=== PATIENT | female | born 1950 | race African-American/Black ===

== ENCOUNTER 2017-12-19 11:55 | Emergency (ER) | payer MEDICARE, OTHER ==
--- OUTSIDE RECORDS SUMMARY | 2017-12-19 11:58 | XMS REPORT | Continuity of Care Document ---
:1950 Author Organization [facility] Team Providers Name Role Phone Kristina Srivastava MD Unavailable Unavailable Encounters Encounter Performer Location Date Lab Report Kristina Srivastava MD [facility] Oct 29, 2011 Problems Problem Effective Dates Problem Status ARTHRITIS, RHEUMATOID Inactive HYPERTENSION Inactive HYPERLIPIDEMIA Inactive DIABETES MELLITUS, TYPE I, ADULT ONSET Inactive PAIN IN JOINT, MULTIPLE SITES Inactive VITAMIN D DEFICIENCY Inactive SARCOIDOSIS Inactive UNSPECIFIED INFLAMMATORY POLYARTHROPATHY Inactive TENDINITIS, SHOULDER, RIGHT Inactive BACK PAIN, LUMBAR Inactive HYPERCHOLESTEROLEMIA Feb 14, 2011 Active SARCOIDOSIS Feb 14, 2011 Active BIPOLAR DISORDER UNSPECIFIED Feb 14, 2011 Active TRIGGER FINGER, LEFT MIDDLE Inactive CARPAL TUNNEL SYNDROME, BILATERAL Inactive RIGHT CARPAL TUNNEL SYNDROME Feb 14, 2011 Active RIGHT CUBITAL TUNNEL SYNDROME Apr 18, 2011 Active SHOULDER PAIN, RIGHT Inactive PAIN IN JOINT, MULTIPLE SITES Inactive CARPAL TUNNEL SYNDROME, LEFT Inactive TRIGGER FINGER, INDEX FINGER Inactive Procedures Date Description Comments Jun 07, 2009 genitourinary review of systems, E&M frequent urination Nov 28, 2009 genitourinary review of systems, E&M frequent urination Apr 05, 2010 genitourinary review of systems, E&M frequent urination Jul 11, 2010 genitourinary review of systems, E&M frequent urination Jan 16, 2011 genitourinary review of systems, E&M frequent urination Feb 14, 2011 genitourinary review of systems, E&M denies loss of urine, frequent urination, painful urination, blood in urine or kidney stones Apr 08, 2011 genitourinary review of systems, E&M denies loss of urine, frequent urination, painful urination, blood in urine or kidney stones Jun 20, 2011 genitourinary review of systems, E&M denies loss of urine, frequent urination, painful urination, blood in urine or kidney stones August 29, 2011 genitourinary review of systems, E&M denies loss of urine, frequent urination, painful urination, blood in urine or kidney stones Oct 30, 2011 genitourinary review of systems, E&M denies loss of urine, frequent urination, painful urination, blood in urine or kidney stones Medications Medication Instructions Start Date Status SIMVASTATIN 40 MG TABS 1 po qd Inactive AMLODIPINE BESYLATE 10 MG TABS 1 po qd Inactive TRAMADOL HCL 50 MG TABS 1 po qd [place]AM[place] D 16943 UNIT CAPS 1 tab once a week for two Jun 12, 2009 Inactive weeks GLIPIZIDE TABS per other M.D. Feb 14, 2011 Active HYDROXYCHLOROQUINE SULFATE 200 MG 1 tab qd Jul 11, 2010 Inactive TABS METFORMIN HCL 500 MG TABS 1 po qd Inactive MELOXICAM 15 MG TABS 1 tab qd w/ food PRN Jul 11, 2010 Inactive BISPRO per other M.D. Feb 14, 2011 Active ZOLOFT TABS per other M.D. Feb 14, 2011 Active VITAMIN D CAPS per other M.D. Jun 20, 2011 Active DEPAKOTE TBEC per other M.D. Jun 20, 2011 Active HYDROXYCHLOROQUINE SULFATE 200 MG 1 tab qd Jun 20, 2011 Active TABS Vital Signs Date Description Test Result Jun 07, 2009 height E&M - 8302-2 HEIGHT 68 in Jun 07, 2009 weight E&M - 3141-9 WEIGHT 230 lb Jun 07, 2009 blood pressure, systolic - 8480-6 BP SYSTOLIC 136 mm Hg Jun 07, 2009 blood pressure, diastolic - 8462-4 BP DIASTOLIC 76 mm Hg Jun 07, 2009 pulse rate E&M - 8867-4 PULSE RATE 76 /min Nov 28, 2009 weight E&M - 3141-9 WEIGHT 232 lb Nov 28, 2009 blood pressure, systolic - 8480-6 BP SYSTOLIC 137 mm Hg Nov 28, 2009 blood pressure, diastolic - 8462-4 BP DIASTOLIC 73 mm Hg Nov 28, 2009 pulse rate E&M - 8867-4 PULSE RATE 70 /min Jul 11, 2010 blood pressure, systolic - 8480-6 BP SYSTOLIC 158 mm Hg Jul 11, 2010 blood pressure, diastolic - 8462-4 BP DIASTOLIC 80 mm Hg Jul 11, 2010 pulse rate E&M - 8867-4 PULSE RATE 75 /min Jan 16, 2011 blood pressure, systolic - 8480-6 BP SYSTOLIC 158 mm Hg Jan 16, 2011 blood pressure, diastolic - 8462-4 BP DIASTOLIC 100 mm Hg Jan 16, 2011 pulse rate E&M - 8867-4 PULSE RATE 75 /min Results Date Description Test Name Value Reference Interpretation Status Mar 08, 2011 hemoglobin, blood HGB 12.2 g/dL 11.5-15.0 Mar 08, 2011 hematocrit, blood HCT 38.0 % 34.0-44.0 Mar 08, 2011 platelet count PLATELETS 255 X10E3/UL 140-415 10*3/mm3 Jul 02, 2011 hemoglobin, blood HGB 12.4 g/dL 11.5-15.0 Jul 02, 2011 hematocrit, blood HCT 37.6 % 34.0-44.0 Jul 02, 2011 platelet count PLATELETS 240 X10E3/UL 140-415 10*3/mm3 Mar 08, 2011 creatinine, serum CREATININE 0.97 mg/dL 0.57-1.00 Jul 02, 2011 creatinine, serum CREATININE 0.97 mg/dL 0.57-1.00
--- OUTSIDE RECORDS SUMMARY | 2017-12-19 11:58 | XMS REPORT | Continuity of Care Document ---
:1950 Author Organization [facility] Team Providers Name Role Phone Surjit Pena MD Unavailable Unavailable Encounters Encounter Performer Location Date Lab Report Surjit Pena MD [facility] Jun 20, 2011 Problems Problem Effective Dates Problem Status [...] Inactive PAIN IN JOINT, MULTIPLE SITES Inactive Procedures Date Description Comments Jun 07, [...] TABS 1 po qd Inactive VITAMIN D 93095 UNIT CAPS 1 tab once a week for two Jun 12, 2009 Inactive weeks TIZANIDINE HCL 4 MG TABS 1 tab QHS PRN Jul 11, 2010 Inactive TRAMADOL-ACETAMINOPHEN 37.5-325 MG 1 tab q 12 hourly PRN Jan 23, 2011 Inactive TABS GLIPIZIDE TABS per other M.D. Feb 14, [...] tab qd Jun 20, 2011 Active TABS Results Date Description Test Name Value Reference Interpretation Status Mar 08, 2011 hemoglobin, blood HGB 12.2 g/dL 11.5-15.0 Mar 08, 2011 hematocrit, blood HCT 38.0 % 34.0-44.0 Mar 08, 2011 platelet count PLATELETS 255 X10E3/UL 140-415 10*3/mm3 Mar 08, 2011 creatinine, serum CREATININE 0.97 mg/dL 0.57-1.00
--- OUTSIDE RECORDS SUMMARY | 2017-12-19 11:58 | XMS REPORT | Continuity of Care Document ---
:1950 Author Organization [facility] Team Providers Name Role Phone Kritsina Srivastava MD Unavailable Unavailable Encounters Encounter Performer Location Date Office Visit [facility] Oct 30, 2011 Problems Problem Effective Dates Problem Status [...] LEFT Inactive TRIGGER FINGER, INDEX FINGER Inactive UNSPECIFIED ARTHROPATHY SITE UNSPECIFIED Inactive Procedures Date Description Comments Jun 07, [...] TABS 1 po qd Inactive VITAMIN D 96136 UNIT CAPS 1 tab once a week [...] tab qd Jun 20, 2011 Active TABS TRAMADOL-ACETAMINOPHEN 37.5-325 MG 1 tab q 12 hourly PRN Jan 23, 2011 Inactive TABS TIZANIDINE HCL 4 MG TABS 1 tab QHS PRN Jul 11, 2010 Inactive Vital Signs Date Description Test Result Jun [...]
--- OUTSIDE RECORDS SUMMARY | 2017-12-19 11:58 | XMS REPORT | Continuity of Care Document ---
:1950 Author Organization [facility] Team Providers Name Role Phone Surjit Pena MD Unavailable Unavailable Encounters Encounter Performer Location Date Office Visit Surjit Pena MD [place] [facility] Jun 20, 2011 Problems Problem Effective Dates [...] TABS 1 po qd Inactive VITAMIN D 97347 UNIT CAPS 1 tab once a week [...]
--- OUTSIDE RECORDS SUMMARY | 2017-12-19 11:58 | XMS REPORT | Continuity of Care Document ---
:1950 Author Organization [facility] Team Providers Name Role Phone Surjit Pena MD Unavailable Unavailable Encounters Encounter Performer Location Date Lab Report Surjit Pena MD [facility] Jul 01, 2011 Problems Problem Effective Dates Problem Status [...] TABS 1 po qd Inactive VITAMIN D 00156 UNIT CAPS 1 tab once a week [...]
--- OUTSIDE RECORDS SUMMARY | 2017-12-19 11:58 | XMS REPORT | Continuity of Care Document ---
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 [place] RIGHT CUBITAL TUNNEL Inactive Condition 04/19/2013 [facility] HYPERCHOLESTEROLEMIA Active Condition 04/19/2013 [facility] BIPOLAR DISORDER Active Condition 04/19/2013 [facility] UNSPECIFIED [facility] RIGHT CARPAL TUNNEL Inactive Condition 04/19/2013 [facility] SYNDROME [facility] ARTHRITIS, RHEUMATOID Active Condition 04/19/2013 [facility] HYPERTENSION Active Condition 04/19/2013 [facility] HYPERLIPIDEMIA Inactive Condition 04/19/2013 [facility] DIABETES MELLITUS, Active Condition 04/19/2013 [facility] TYPE I, ADULT ONSET [facility] PAIN IN JOINT, Inactive Condition 04/19/2013 [facility] MULTIPLE SITES [facility] VITAMIN D DEFICIENCY Active Condition 04/19/2013 [facility] SARCOIDOSIS Inactive Condition 04/19/2013 [facility] UNSPECIFIED Inactive Condition 04/19/2013 [facility] INFLAMMATORY [facility] POLYARTHROPATHY Joint TENDINITIS, SHOULDER, Inactive Condition 04/19/2013 [facility] BACK PAIN, LUMBAR Inactive Condition 04/19/2013 [facility] TRIGGER FINGER, LEFT Inactive Condition 04/19/2013 [facility] MIDDLE [facility] CARPAL TUNNEL Inactive Condition 04/19/2013 [facility] SYNDROME, BILATERAL [facility] SHOULDER PAIN, RIGHT Active Condition 04/19/2013 [facility] CARPAL TUNNEL Inactive Condition 04/19/2013 [facility] SYNDROME, LEFT [facility] TRIGGER FINGER, INDEX Inactive Condition 04/19/2013 [facility] FINGER [facility] UNSPECIFIED Active Condition 04/19/2013 [facility] ARTHROPATHY SITE [facility] & UNSPECIFIED Joint Medications Medication Details Route Status Patient Ordering Order Source Instructions Provider Date LASIX TABS per other Active [facility] [place] [facility] GABAPENTIN TABS per other Active [facility] [place] [facility] HYDROXYCHLOROQUINE 1 tb po Active [facility] SULFATE 200 MG TABS qd 014 [facility] VITAMIN D CAPS per other Active [facility] [place] [facility] DEPAKOTE TBEC per other Active [facility] [place] [facility] HYDROXYCHLOROQUINE 1 tab qd Active [facility] SULFATE 200 MG TABS 012 [facility] VITAMIN D CAPS per other No [facility] [place] [facility] 012 [facility] DEPAKOTE TBEC per other No [facility] [place] [facility] 012 [facility] HYDROXYCHLOROQUINE 1 tab qd No [facility] SULFATE 200 MG TABS [facility] 012 [facility] GLIPIZIDE TABS per other Active [facility] [place] [facility] METFORMIN HCL 500 MG 1 po qd No [facility] TABS [facility] 011 [facility] BISPRO per other Active [facility] [place] [facility] ZOLOFT TABS per other Active [facility] [place] [facility] GLIPIZIDE TABS per other Active [facility] [place] [facility] METFORMIN HCL 500 MG 1 po qd No [facility] TABS [facility] 011 [facility] BISPRO per other No [facility] [place] [facility] 011 [facility] ZOLOFT TABS per other No [facility] [place] [facility] 011 [facility] GLIPIZIDE TABS per other Active [facility] [place] [facility] METFORMIN HCL 500 MG 1 po qd No [facility] TABS [facility] 011 [facility] TRAMADOL-ACETAMINOPH 1 tab q No [facility] EN 37.5-325 MG TABS 12 hourly [facility] 011 [facility] & PRN Active Joint TRAMADOL-ACETAMINOPH 1 tab q No [facility] EN 37.5-325 MG TABS 12 hourly [facility] 011 Bone & PRN Active Joint TRAMADOL-ACETAMINOPH 1 tab q No [facility] EN 37.5-325 MG TABS 12 hourly [facility] 011 [facility] & PRN Active Joint TRAMADOL HCL 50 MG 1 po qd No [facility] TABS [facility] 011 [facility] TIZANIDINE HCL 4 MG 1 tab QHS No [facility] TABS PRN [facility] 011 [facility] HYDROXYCHLOROQUINE 1 tab qd No [facility] SULFATE 200 MG TABS [facility] 011 [facility] Active [facility] MELOXICAM 15 MG TABS 1 tab qd No [facility] w/ food [facility] 011 [facility] PRN Active Joint TRAMADOL HCL 50 MG 1 po qd No [facility] TABS [facility] 011 [facility] Active [facility] HYDROXYCHLOROQUINE 1 tab qd No [facility] SULFATE 200 MG TABS [facility] 011 [facility] Active [facility] MELOXICAM 15 MG TABS 1 tab qd No [facility] w/ food [facility] 011 [facility] & PRN Active Joint TIZANIDINE HCL 4 MG 1 tab QHS No [facility] TABS PRN [facility] 011 [facility] Active [facility] TRAMADOL HCL 50 MG 1 po qd No [facility] TABS [facility] 011 [facility] Active [facility] MELOXICAM 15 MG TABS 1 tab qd No [facility] w/ food [facility] 011 [facility] & PRN Active Joint TIZANIDINE HCL 4 MG 1 tab QHS No [facility] TABS PRN [facility] 011 [facility] Active [facility] VITAMIN D 91623 UNIT 1 tab No [facility] CAPS once a [facility] 010 Bone & week for Active Joint two weeks VITAMIN D 43152 UNIT 1 tab No [facility] CAPS once a [facility] 010 [facility] & week for Active Joint two weeks SIMVASTATIN 40 MG 1 po qd No [facility] TABS [facility] AMLODIPINE BESYLATE 1 po qd No [facility] 10 MG TABS [facility] SIMVASTATIN 40 MG 1 po qd No [facility] TABS [facility] AMLODIPINE BESYLATE 1 po qd No [facility] 10 MG TABS [facility] SIMVASTATIN 40 MG 1 po qd No [facility] TABS [facility] AMLODIPINE BESYLATE 1 po qd No [facility] 10 MG TABS [facility] Allergies, Adverse Reactions, Alerts Substance Category Reaction Severity Reaction Status Date Comments Source type Reported Immunizations Immunization Date Given Site Status Last Comments Source Updated polio vaccine #4 08/29/2011 completed [facility] polio vaccine #4 02/14/2011 completed [facility] Results Order Name Results Value Reference Date Interpretation Comments Source Range Brain wo Brain wo EXAM: MRI BRAIN WITHOUT CONTRAST 01/13 - [facility] contrast contrast /2015 - [place] MRI MRI DATE: 01/14/2016 11:47 AM CDT Read by: Dav Ely MD Dictated Date/time: 01/17/16 07:27 Electronically Signed by: Dav Ely MD 01/17/16 07:47 FINAL REPORT INDICATION: F03.90 Unspecified dementia without behavioral disturbance COMPARISON: None. TECHNIQUE: Multiplanar, mutisequence MRI of the brain without contrast. IV contrast: None. FINDINGS: Marked motion artifact degrades image quality. Diffusion weighted images demonstrate no focal signal abnormality. There are multiple scattered nonspecific foci confluent areas of T2/FLAIR signal abnormality likely reflecting mild chronic small vessel ischemic change. No acute intracranial hemorrhage detected. The ventricles are normal in size and symmetric. No extra-axial fluid collection identified. Turner-white distinction is preserved. No mass lesion or midline shift detected. The intracranial arterial and venous structures demonstrate normal flow voids. Extensive mucosal thickening of the paranasal sinuses. Mild partial opacification of the inferior right mastoid air cells. IMPRESSION: 1. Limited study as above. No definite acute infarct or intracranial hemorrhage detected. 2. Mild chronic small vessel ischemic change. SL: [id number] Chemistry CRP <1.0 mg/L 0.0 - 4.9 09/02 [facility] mg/dL [facility] ESR 24 mm/hr 0 - 40 09/02 [facility] HGB 12.4 g/dL 11.1 - 09/02 [facility] 15.9 /2012 [facility] HCT 37.0 % 34.0 - 09/02 [facility] 46.6 /2012 [facility] H[facility]ology PLATELETS 247 140 - 415 09/02 [facility] X10E3/UL /2012 Bone & 10*3/mm3 Joint Hematology HGB 12.4 g/dL 11.5 - 07/01 [facility] 15.0 /2011 [facility] H[facility] HCT 37.6 % 34.0 - 07/01 [facility] 44.0 /2011 [facility] Hematology PLATELETS 240 140 - 415 07/01 [facility] X10E3/UL /2012 Bone & 10*3/mm3 Joint Chemistry CREATININE 0.97 mg/dL 0.57 - 07/01 [facility] 1. [facility] Chemistry CREATININE 0.97 mg/dL 0.57 - 07/01 [facility] 1. [facility] Hematology HGB 12.2 g/dL 11.5 - 03/08 [facility] 15.0 /2010 [facility] Hematology HCT 38.0 % 34.0 - 03/08 [facility] 44.0 /2010 [facility] Hematology PLATELETS 255 140 - 415 03/08 [facility] X10E3/UL Bone & 10*3/mm3 Joint Chemistry CREATININE 0.97 mg/dL 4.5 - 12.0 12 [facility] Chemistry CREATININE 0.97 mg/dL 0.57 - 03/08 [facility] 1. [facility] Chemistry CREATININE 0.97 mg/dL 0.57 - 03/08 [facility] 1. [facility] Vital Signs Vital Sign Value Date Comments Source Height 68 04/19/2013 [facility] Systolic (mm Hg) 161 04/19/2013 [facility] Diastolic (mm Hg) 70 04/19/2013 [facility] Heart Rate 71 04/19/2013 [facility] Systolic (mm Hg) 158 01/16/2011 [facility] Diastolic (mm Hg) 100 01/16/2011 [facility] Heart Rate 75 01/16/2011 [facility] Systolic (mm Hg) 158 07/11/2010 [facility] Diastolic (mm Hg) 80 07/11/2010 [facility] Heart Rate 75 07/11/2010 [facility] Weight 232 11/28/2009 [facility] Systolic (mm Hg) 137 11/28/2009 [facility] Diastolic (mm Hg) 73 11/28/2009 [facility] Heart Rate 70 11/28/2009 [facility] Height 68 06/07/2009 [facility] Weight 230 06/07/2009 [facility] Systolic (mm Hg) 136 06/07/2009 [facility] Diastolic (mm Hg) 76 06/07/2009 [facility] Heart Rate 76 06/07/2009 [facility] Encounters Location Location Encounter Encounter Reason Attending ADM DC Status Source Details Type Number For Provider Date Date Visit [facility] Office [id number] Surjit 06/19 06/19 [facility] [place] [facility] Report [id number] Surjit 06/19 06/19 [facility] [place] [facility] Report [id number] Surjit 06/30 06/30 [facility] [place] [facility] [id number] Kristina 08/28 08/28 [place] [facility] [place] [facility] Report [id number] Kristina 10/28 10/28 [facility] [place] [facility] [id number] Kristina 10/29 10/29 [place] [facility] Visit 40 [facility] [place] [facility] [id number] Kristina 03/02 03/02 [facility] /2011 [facility] [place] Lab Report [id number] Kristina 09/01 09/01 [facility] [place] [facility] Report [id number] Surjit 04/19 04/19 [facility] Procedures Procedure Code Date Perfomer Comments Source genitourinary review 235063.9 10/30/2011 denies loss of [facility], E&M urine, frequent & Joint urination, painful urination, blood in urine or kidney stones genitourinary review 484091.9 08/29/2011 denies loss of [facility], E&M urine, frequent & Joint urination, painful urination, blood in urine or kidney stones genitourinary review 863421.9 06/20/2011 denies loss of [facility], E&M urine, frequent & Joint urination, painful urination, blood in urine or kidney stones genitourinary review 986797.9 04/08/2011 denies loss of [facility], E&M urine, frequent & Joint urination, painful urination, blood in urine or kidney stones genitourinary review 547866.9 02/14/2011 denies loss of [facility], E&M urine, frequent & Joint urination, painful urination, blood in urine or kidney stones genitourinary review 237396.9 01/16/2011 frequent [facility], E&M urination & Joint genitourinary review 890947.9 07/11/2010 frequent [facility], E&M urination & Joint genitourinary review 418858.9 04/05/2010 frequent [facility], E&M urination & Joint genitourinary review 085483.9 11/28/2009 frequent [facility], E&M urination & Joint genitourinary review 737188.9 06/07/2009 frequent [facility], E&M urination & Joint
--- OUTSIDE RECORDS SUMMARY | 2017-12-19 11:58 | XMS REPORT | Continuity of Care Document ---
:1950 Author Organization [facility] Team Providers Name Role Phone Kristina Srivastava MD Unavailable Unavailable Encounters Encounter Performer Location Date Office Visit [facility] August 29, 2011 Problems Problem Effective Dates Problem [...] TABS 1 po qd Inactive VITAMIN D 09825 UNIT CAPS 1 tab once a week [...]
--- OUTSIDE RECORDS SUMMARY | 2017-12-19 11:59 | XMS REPORT | Continuity of Care Document ---
:1950 Author Organization [facility] Team Providers Name Role Phone Kristina Srivastava MD Unavailable Unavailable Insurance Providers Payer name Policy type / Coverage Policy ID Covered republican ID Policy Martinez type AARP Medicare Complete Encounters Encounter Performer Location Date Lab Report [facility] September 01, 2012 Problems Problem Effective Dates Problem Status ARTHRITIS, RHEUMATOID Active HYPERTENSION Active HYPERLIPIDEMIA Inactive DIABETES MELLITUS, TYPE I, ADULT ONSET Active PAIN IN JOINT, MULTIPLE SITES Inactive VITAMIN D DEFICIENCY Active SARCOIDOSIS Inactive UNSPECIFIED INFLAMMATORY POLYARTHROPATHY Inactive TENDINITIS, SHOULDER, RIGHT Inactive BACK PAIN, LUMBAR Inactive HYPERCHOLESTEROLEMIA Feb 14, 2011 Active SARCOIDOSIS Feb 14, 2011 Active BIPOLAR DISORDER UNSPECIFIED Feb 14, 2011 Active TRIGGER FINGER, LEFT MIDDLE Active CARPAL TUNNEL SYNDROME, BILATERAL Active RIGHT CARPAL TUNNEL SYNDROME Feb 14, 2011 Active RIGHT CUBITAL TUNNEL SYNDROME Apr 18, 2011 Active SHOULDER PAIN, RIGHT Active PAIN IN JOINT, MULTIPLE SITES Active CARPAL TUNNEL SYNDROME, LEFT Active TRIGGER FINGER, INDEX FINGER Active UNSPECIFIED ARTHROPATHY SITE UNSPECIFIED Active Medications Medication Instructions Start Date Status SIMVASTATIN 40 MG TABS 1 po qd Inactive AMLODIPINE BESYLATE 10 MG TABS 1 po qd Inactive TRAMADOL HCL 50 MG TABS 1 po qd Inactive VITAMIN D 43635 UNIT CAPS 1 tab once a week [...] tab QHS PRN Jul 11, 2010 Inactive Immunizations Vaccine Date Status polio vaccine #4 Feb 14, 2011 completed polio vaccine #4 August 29, 2011 completed Vital Signs Date Description Test Result Jun [...] Name Value Reference Interpretation Status Mar 08, hemoglobin, blood HGB 12.2 g/dL 11.5-15.0 2010Mar 08, hematocrit, blood HCT 38.0 % 34.0-44.0 2010Mar 08, platelet count PLATELETS 255 [phone] X10E3/UL 10*3/mm3 Jul 01, hemoglobin, blood HGB 12.4 g/dL 11.5-15.0 2011Jul 01, hematocrit, blood HCT 37.6 % 34.0-44.0 2011Jul 01, platelet count PLATELETS 240 [phone] X10E3/UL 10*3/mm3 September 02, hemoglobin, blood HGB 12.4 g/dL 11.1-15.9 2012September 02, hematocrit, blood HCT 37.0 % 34.0-46.6 2012September 02, platelet count PLATELETS 247 [phone] X10E3/UL 10*3/mm3 September 02, erythrocyte ESR 24 mm/hr 0-40 2012 sedimentation rate Mar 08, creatinine, serum CREATININE 0.97 mg/dL 0.57-1.00 2010Jul 01, creatinine, serum CREATININE 0.97 mg/dL 0.57-1.00 2011September 02, C-reactive protein, CRP <1.0 mg/L 0.0-4.9 2012 serum mg/dL
--- OUTSIDE RECORDS SUMMARY | 2017-12-19 11:59 | XMS REPORT | Continuity of Care Document ---
:1950 Author Organization [facility] Team Providers Name Role Phone Surjit Pena MD Unavailable Unavailable Insurance Providers Payer name Policy type / Coverage Policy ID Covered republican ID Policy Martinez type AARP Medicare Complete Encounters Encounter Performer Location Date Lab Report [facility] Apr 19, 2013 Problems Problem Effective Dates Problem Status ARTHRITIS, [...] RIGHT CARPAL TUNNEL SYNDROME Feb 14, 2011 Inactive RIGHT CUBITAL TUNNEL SYNDROME Apr 18, 2011 Inactive SHOULDER PAIN, RIGHT Active PAIN IN JOINT, MULTIPLE SITES Active CARPAL TUNNEL SYNDROME, LEFT Inactive TRIGGER FINGER, INDEX FINGER Inactive UNSPECIFIED ARTHROPATHY SITE UNSPECIFIED Active Medications Medication Instructions Start Date Status SIMVASTATIN 40 MG TABS 1 po qd Inactive AMLODIPINE BESYLATE 10 MG TABS 1 po qd Inactive TRAMADOL HCL 50 MG TABS 1 po qd Inactive VITAMIN D 61837 UNIT CAPS 1 tab once a week for two Jun 12, 2009 Inactive weeks GLIPIZIDE TABS per other M.D. Feb 14, 2011 Active HYDROXYCHLOROQUINE SULFATE 200 MG 1 tab qd Jul 11, 2010 Inactive TABS METFORMIN HCL 500 MG TABS 1 po qd Inactive MELOXICAM 15 MG TABS 1 tab qd w/ food PRN Jul 11, 2010 Inactive TRAMADOL-ACETAMINOPHEN 37.5-325 MG 1 tab q 12 hourly PRN Jan 23, 2011 Inactive TABS TIZANIDINE HCL 4 MG TABS 1 tab QHS PRN Jul 11, 2010 Inactive BISPRO per other M.D. Feb 14, 2011 Inactive ZOLOFT TABS per other M.D. Feb 14, 2011 Inactive VITAMIN D CAPS per other M.D. Jun 20, 2011 Inactive DEPAKOTE TBEC per other M.D. Jun 20, 2011 Inactive HYDROXYCHLOROQUINE SULFATE 200 MG 1 tab qd Jun 20, 2011 Inactive TABS LASIX TABS per other M.D. Apr 19, 2013 Active GABAPENTIN TABS per other M.D. Apr 19, 2013 Active HYDROXYCHLOROQUINE SULFATE 200 MG 1 tb po qd Apr 19, 2013 Active TABS Immunizations Vaccine Date Status polio vaccine #4 [...] E&M - 8867-4 PULSE RATE 75 /min Apr 19, 2013 height E&M - 8302-2 HEIGHT 68 in Apr 19, 2013 blood pressure, systolic - 8480-6 BP SYSTOLIC 161 mm Hg Apr 19, 2013 blood pressure, diastolic - 8462-4 BP DIASTOLIC 70 mm Hg Apr 19, 2013 pulse rate E&M - 8867-4 PULSE RATE 71 /min Results Date Description Test Name Value Reference Interpretation Status Mar 08, hemoglobin, blood HGB 12.2 g/dL 11.5-15.0 2010Mar 08, hematocrit, blood HCT 38.0 % 34.0-44.0 2010Mar 08, platelet count PLATELETS 255 [phone] X10E3/UL 10*3/mm3 Jul 01, hemoglobin, blood HGB 12.4 g/dL 11.5-15.0 2011Jul 01, hematocrit, blood HCT 37.6 % 34.0-44.0 2011Jul 01, platelet count PLATELETS 240 [phone] X10E3/UL 10*3/mm3 September 02, hemoglobin, blood HGB 12.4 g/dL 11.1-15.9 2012September 02, hematocrit, blood HCT 37.0 % 34.0-46.6 2012September 02, platelet count PLATELETS 247 [phone] X10E3/UL 10*3/mm3 September 02, erythrocyte ESR 24 mm/hr 0-40 2012 sedimentation rate Mar 08, creatinine, serum CREATININE 0.97 mg/dL 0.57-1.00 2010Jul 01, creatinine, serum CREATININE 0.97 mg/dL 0.57-1.00 2011September 02, C-reactive protein, CRP <1.0 mg/L 0.0-4.9 2012 serum mg/dL
--- OUTSIDE RECORDS SUMMARY | 2017-12-19 11:59 | XMS REPORT | Continuity of Care Document ---
:1950 Author Organization [facility] Care Team Providers Name Role Phone Kristina Srivastava MD Unavailable Unavailable Encounters Encounter Performer Location Date Lab Report Kristina Srivastava MD [facility] Mar 02, 2012 Problems Problem Effective Dates Problem Status [...] TABS 1 po qd Inactive VITAMIN D 25800 UNIT CAPS 1 tab once a week [...]
[2017-12-19] MEDS ORDERED: MORPHINE 4 MG/ML SYR ONE (14:32)
[2017-12-19] MEDS ORDERED: ONDANSETRON 4 MG/2 ML VIAL ONE (14:32)
[2017-12-19 14:57] LABS: Absolute Lymphocytes (CBC) 0.7 K/uL (0.7-4.9); Absolute Monocytes 0.3 K/uL (0.1-1.3); Absolute Neutrophil 1.3 K/uL (1.8-8.0); Basophils % 0.7 % (0-1.3); Eosinophils % 5.3 % (0-4.4); Hematocrit 36.1 % (36.0-45.0); Lymphocytes % 27.8 % (15.3-44.8); MCH 26.3 pg (27.0-35.0); MCV 79.8 fL (80-100); MPV 8.5 fL (7.6-11.3); Monocytes % 11.3 % (3.3-12.3); RBC Red Blood Cell Count 4.53 M/uL (3.86-4.86)
[2017-12-19 15:19] LABS: Bilirubin Direct 0.2 mg/dL (0-0.2); Bilirubin Total 0.6 mg/dL (0.2-1.0); Potassium 4.2 mmol/L (3.5-5.1); Protein, Total 8.5 g/dL (6.4-8.2)
[2017-12-19 15:50] LABS: Urine Bacteria 20-50 /HPF (<20); Urine Culture Reflex Order REFLEXED; Urine Mucus 2+ /HPF (NONE SEEN); Urine RBC <5 /HPF (NONE SEEN)
[2017-12-19 15:57] LABS: Urine Blood NEGATIVE (NEG); Urine Glucose NEGATIVE (NEG); Urine Protein NEGATIVE (NEG); Urine Specific Gravity 1.025 (1.005-1.030)
--- NOTE | 2017-12-19 16:40 | RAD REPORT ---
EXAM DESCRIPTION: CT - Abdomen Pelvis W Contrast - 12/19/2017 4:08 pm CLINICAL HISTORY: Abdominal pain/right lower quadrant pain for 1 month COMPARISON: August 2016 TECHNIQUE: Computed axial tomography of the abdomen pelvis was obtained. 100 cc Isovue-300 was admin istered intravenously. Oral contrast was not requested which limits evaluation of bowel. All CT scans are performed using dose optimization technique as appropriate and may include automated exposure control or mA/KV adjustment according to patient size. FINDINGS: Hepatic and splenic granulomata are seen. The spleen measures 12.8 centimeters. Pancreas, adrenals and right kidney are unremarkable. 20 millimeter left renal cyst is present. . There is no evidence of diverticulitis. The appendix appears normal. Laxity of the anterior abdominal wall is present. Diastases of the rectus abdominis muscles measures 5.4 centimeters Spondylosis of the lumbar spine results in spinal stenosis IMPRESSION: No acute abnormality is displayed.
--- NOTE | 2017-12-19 17:10 | ER ---
Nurse's Notes [facility] Name: Izabela Phillips Age: 67 yrs Sex: Female : 1950 Arrival Date: 12/19/2017 Time: 11:58 Bed 17 Private MD: Josh Driscoll E Diagnosis: Lower abdominal pain, unspecified;Urinary tract infection, site not specified Presentation: 12/19 12:03 Presenting complaint: Patient states: Patient reports RLQ pain for 1 month. Patient aj reports urge to have BM after eating. Transition of care: patient was not received from another setting of care. Onset of symptoms was November 18, 2017. Risk Assessment: Do you want to hurt yourself or someone else? Patient reports no desire to harm self or others. Initial Sepsis Screen: Does the patient meet any 2 criteria? No. Patient's initial sepsis screen is negative. Does the patient have a suspected source of infection? No. Patient's initial sepsis screen is negative. Care prior to arrival: None. 12:03 Method Of Arrival: Ambulatory aj 12:03 Acuity: NIYA 3 aj Triage Assessment: 12:05 General: Appears in no apparent distress. comfortable, Behavior is calm, cooperative, aj appropriate for age. Pain: Complains of pain in right lower quadrant. Neuro: Level of Consciousness is awake, alert, obeys commands, Oriented to person, place, time, situation, Appropriate for age. Respiratory: Airway is patent Trachea midline Respiratory effort is even, unlabored, Respiratory pattern is regular, symmetrical. GI: Reports lower abdominal pain. Derm: Skin is intact, is healthy with good turgor, Skin is pink, warm \T\ dry. normal. Historical: - Allergies: 12:05 No Known Allergies; aj - Home Meds: 12:05 amlodipine 10 mg tab 1 tab once daily [Active]; carvedilol 25 mg Oral tab 1 tab 2 times aj per day [Active]; gabapentin 200 mg BID Oral [Active]; Glipizide Oral [Active]; losartan Oral [Active]; simvastatin 40 mg Oral tab 1 tab once daily [Active]; Hydrochlorothiazide Oral [Active]; - PMHx: 12:05 Bipolar disorder; Diabetes - IDDM; High Cholesterol; Hypertension; Rheumatoid aj Arthritis; sarcoidosis; - PSHx: 12:05 Kidney stents; Tubal ligation; aj - Immunization history:: Adult Immunizations up to date. - Social history:: Smoking status: Patient/guardian denies using tobacco. - Ebola Screening: : Patient negative for fever greater than or equal to 101.5 degrees Fahrenheit, and additional compatible Ebola Virus Disease symptoms Patient denies exposure to infectious person Patient denies travel to an Ebola-affected area in the 21 days before illness onset No symptoms or risks identified at this time. Screenin:15 Abuse screen: Denies threats or abuse. Nutritional screening: No deficits noted. em Tuberculosis screening: No symptoms or risk factors identified. Fall Risk None identified. Assessment: 13:55 General: Appears in no apparent distress. uncomfortable, Behavior is calm, cooperative, em Denies fever. Pain: Complains of pain in right lower quadrant Pain currently is 7 out of 10 on a pain scale. Neuro: Level of Consciousness is awake, alert, obeys commands, Oriented to person, place, time, situation. Cardiovascular: Capillary refill < 3 seconds Patient's skin is warm and dry. Respiratory: Airway is patent Respiratory effort is even, unlabored, Respiratory pattern is regular, symmetrical. GI: Abdomen is round obese, Bowel sounds present X 4 quads. Abd is soft X 4 quads Abdomen is tender to palpation in right lower quadrant Reports diarrhea, nausea, Patient currently denies vomiting. : No signs and/or symptoms were reported regarding the genitourinary system. EENT: No signs and/or symptoms were reported regarding the EENT system. Derm: Skin is intact, Skin is dry, Skin is normal, Skin temperature is warm. Musculoskeletal: Capillary refill < 3 seconds, Range of motion: intact in all extremities. 13:55 Reassessment: I agree with assessment completed by Bryce Avendano LVN . aa5 15:15 Reassessment: Patient appears in no apparent distress at this time. Patient and/or em family updated on plan of care and expected duration. Pain level reassessed. Patient is alert, oriented x 3, equal unlabored respirations, skin warm/dry/pink. rates pain 4/10 Patient states feeling better. 15:52 Reassessment: Patient appears in no apparent distress at this time. pt wheeled to CT em via wheelchair. 16:45 Reassessment: Patient appears in no apparent distress at this time. Patient and/or em family updated on plan of care and expected duration. Pain level reassessed. Patient is alert, oriented x 3, equal unlabored respirations, skin warm/dry/pink. Patient states feeling better. Vital Signs: 12:05 BP 140 / 76; Pulse 70; Resp 16; Temp 97.0; Pulse Ox 97% on R/A; Weight 104.33 kg; aj Height 5 ft. 11 in. (180.34 cm); 14:26 BP 151 / 67; Pulse 68; Resp 16; Pulse Ox 100% on R/A; Pain 7/10; em 15:30 BP 141 / 68; Pulse 66; Resp 17; Pulse Ox 99% on R/A; Pain 4/10; em 16:30 BP 138 / 61; Pulse 71; Resp 16; Pulse Ox 99% on R/A; em 12:05 Body Mass Index 32.08 (104.33 kg, 180.34 cm) aj ED Course: 11:58 Patient arrived in ED. mr 11:58 Josh Driscoll MD is Private Physician. mr 12:04 Triage completed. aj 12:05 Arm band placed on left wrist. Patient placed in waiting room, Patient notified of wait aj time. 13:07 Trey Lindsay PA is PHCP. [facility] 13:07 Josh Hanna MD is Attending Physician. [facility] 13:17 Bryce Avendano LVN is Primary Nurse. em 14:11 Radiology exam delayed due to lab results not completed at this time. (BUN/Creatinine). sj 14:30 No provider procedures requiring assistance completed. Initial lab(s) drawn, by co, em sent to lab. Urine collected: clean catch specimen, clear. Inserted saline lock: 22 gauge in left antecubital area, using aseptic technique. Blood collected. 15:15 Patient has correct armband on for positive identification. Placed in gown. Bed in low em position. Call light in reach. 16:07 CT completed. Patient moved to CT via wheelchair. Patient moved back from CT. sj 16:08 CT Abd/Pelvis - W/Contrast In Process Unspecified. EDMS 17:09 Josh Driscoll MD is Referral Physician. jmm 17:38 IV discontinued, intact, bleeding controlled, No redness/swelling at site. Pressure em dressing applied. Administered Medications: 14:43 Drug: morphine 2 mg Route: IVP; Site: left antecubital; aa5 15:16 Follow up: Response: No adverse reaction; Pain is decreased em 14:43 Drug: Zofran 4 mg Route: IVP; Site: left antecubital; aa5 15:18 Follow up: Response: No adverse reaction em Outcome: 17:09 Discharge ordered by . jael 17:38 Discharged to home ambulatory, with family. em 17:38 Condition: good 17:38 Discharge instructions given to patient, family, Instructed on discharge instructions, follow up and referral plans. medication usage, Demonstrated understanding of instructions, follow-up care, medications, Prescriptions given X 1. 17:45 Patient left the ED. em Signatures: Dispatcher [employer] Elham Smith RN RN Trey Mills PA PA jmm Rivera, Maria mr Wiliam, Bryce Brumfield, OUTSIDE PLANT SUPERVISOR OUTSIDE PLANT SUPERVISOR em Danika Upton, RN RN aa5 Corrections: (The following items were deleted from the chart) 17:08 13:55 GI: Abdomen is round obese, Bowel sounds present X 4 quads. Abd is soft X 4 quads aa5 Abdomen is tender to palpation in left lower quadrant Reports diarrhea, nausea, Patient currently denies vomiting, em 17: 13:55 Derm: Skin is intact, Skin is pink, warm \T\ dry. em aa5
--- NOTE | 2017-12-19 17:10 | EDPHYS ---
Physician Documentation [facility] Name: Izabela Phillips Age: 67 yrs Sex: Female : 1950 Arrival Date: 12/19/2017 Time: 11:58 Bed 17 Private MD: Josh Driscoll E ED Physician Josh Hanna HPI: 12/19 13:49 This 67 yrs old Black Female presents to ER via Ambulatory with complaints of Abdominal jmm Pain. 13:49 The patient presents with abdominal pain right lower quadrant. Onset: The jmm symptoms/episode began/occurred gradually, 1 day(s) ago. The symptoms do not radiate. Associated signs and symptoms: Pertinent positives: nausea. The symptoms are described as achy. Modifying factors: The symptoms are alleviated by nothing, the symptoms are aggravated by alcohol. This is a 67 year old female with a history of DM that presents to the ED with right lower abdominal pain worsening since last night. Patient denies vomiting but states having a loose bowel movement. . Historical: - Allergies: 12:05 No Known Allergies; aj - Home Meds: 12:05 amlodipine 10 mg tab 1 tab once daily [Active]; carvedilol 25 mg Oral tab 1 tab 2 times aj per day [Active]; gabapentin 200 mg BID Oral [Active]; Glipizide Oral [Active]; losartan Oral [Active]; simvastatin 40 mg Oral tab 1 tab once daily [Active]; Hydrochlorothiazide Oral [Active]; - PMHx: 12:05 Bipolar disorder; Diabetes - IDDM; High Cholesterol; Hypertension; Rheumatoid aj Arthritis; sarcoidosis; - PSHx: 12:05 Kidney stents; Tubal ligation; aj - Immunization history:: Adult Immunizations up to date. - Social history:: Smoking status: Patient/guardian denies using tobacco. - Ebola Screening: : Patient negative for fever greater than or equal to 101.5 degrees Fahrenheit, and additional compatible Ebola Virus Disease symptoms Patient denies exposure to infectious person Patient denies travel to an Ebola-affected area in the 21 days before illness onset No symptoms or risks identified at this time. ROS: 13:49 Constitutional: Negative for fever, chills, and weight loss, Cardiovascular: Negative jmm for chest pain, palpitations, and edema, Respiratory: Negative for shortness of breath, cough, wheezing, and pleuritic chest pain. 13:49 Neuro: Negative for headache, weakness, numbness, tingling, and seizure, Psych: Negative for depression, anxiety, suicide ideation, homicidal ideation, and hallucinations. 13:49 Abdomen/GI: Positive for abdominal pain. 13:49 All other systems are negative. Exam: 13:49 Head/Face: atraumatic. Chest/axilla: Normal chest wall appearance and motion. [facility] Cardiovascular: Regular rate and rhythm. No edema appreciated Respiratory: Normal respirations, no respiratory distress appreciated Back: Normal ROM 13:49 Skin: General appearance color normal MS/ Extremity: Moves all extremities, no obvious deformities appreciated, no edema noted to the lower extremities Neuro: Awake and alert, normal gait Psych: Behavior is normal, Mood is normal, Patient is cooperative and pleasant 13:49 Constitutional: The patient appears alert, awake, uncomfortable. 13:49 Abdomen/GI: Inspection: abdomen appears normal, Bowel sounds: normal, Palpation: soft, moderate abdominal tenderness, in the right lower quadrant. 13:49 Back: ROM is normal. Vital Signs: 12:05 BP 140 / 76; Pulse 70; Resp 16; Temp 97.0; Pulse Ox 97% on R/A; Weight 104.33 kg; aj Height 5 ft. 11 in. (180.34 cm); 14:26 BP 151 / 67; Pulse 68; Resp 16; Pulse Ox 100% on R/A; Pain 7/10; em 15:30 BP 141 / 68; Pulse 66; Resp 17; Pulse Ox 99% on R/A; Pain 4/10; em 16:30 BP 138 / 61; Pulse 71; Resp 16; Pulse Ox 99% on R/A; em 12:05 Body Mass Index 32.08 (104.33 kg, 180.34 cm) MDM: 13:49 Patient medically screened. [facility] 17:05 Data reviewed: vital signs, nurses notes. Counseling: I had a detailed discussion with jael the patient and/or guardian regarding: the historical points, exam findings, and any diagnostic results supporting the discharge/admit diagnosis, the need for outpatient follow up, to return to the emergency department if symptoms worsen or persist or if there are any questions or concerns that arise at home. 17:28 Data interpreted: Pulse oximetry: on room air is 97 %. Interpretation: normal. [facility] 12/19 13:50 Order name: Amylase, Serum; Complete Time: 16:03 [facility] 12/19 13:50 Order name: Basic Metabolic Panel; Complete Time: 16:03 [facility] 12/19 13:50 Order name: CBC with Diff; Complete Time: 15:17 [facility] 12/19 13:50 Order name: Creatinine for Radiology; Complete Time: 15:17 [facility] 12/19 13:50 Order name: Hepatic Function; Complete Time: 16:03 [facility] 12/19 13:50 Order name: Lipase; Complete Time: 16:03 [facility] 12/19 13:50 Order name: Urine Microscopic Only; Complete Time: 16:03 [facility] 12/19 13:50 Order name: IV Saline Lock; Complete Time: 15:02 [facility] 12/19 13:50 Order name: Labs collected and sent; Complete Time: 15:01 [facility] 12/19 13:50 Order name: CT Abd/Pelvis - W/Contrast; Complete Time: 16:56 [facility] 12/19 15:12 Order name: Urine Dipstick--Ancillary (enter results); Complete Time: 16:03 12/19 15:51 Order name: Urine Culture [facility] 12/19 13:50 Order name: Urine Dipstick-Ancillary (obtain specimen); Complete Time: 15:01 [facility] Administered Medications: 14:43 Drug: morphine 2 mg Route: IVP; Site: left antecubital; aa5 15:16 Follow up: Response: No adverse reaction; Pain is decreased em 14:43 Drug: Zofran 4 mg Route: IVP; Site: left antecubital; aa5 15:18 Follow up: Response: No adverse reaction em Disposition: 12/19/17 17:09 Discharged to Home. Impression: Lower abdominal pain, unspecified, Urinary tract infection, site not specified. - Condition is Stable. - Discharge Instructions: Abdominal Pain, Adult, Urinary Tract Infection, Adult. - Prescriptions for Bactrim DS 800- 160 mg Oral Tablet - take 1 tablet by ORAL route every 12 hours for 10 days; 20 tablet. - Medication Reconciliation Form, Thank You Letter, Antibiotic Education, Prescription Opioid Use form. - Follow up: Josh Driscoll MD; When: 2 - 3 days; Reason: Recheck today's complaints, Continuance of care, Re-evaluation by your physician. Addendum: 12/21/2017 08:02 Co-signature as Attending Physician, Josh Hanna MD I agree with the assessment and w a plan of care. Signatures: Dispatcher [employer] Elham Smith, RN RN Tery Mills PA PA jmm Munoz, Edgar, RIPRAP PLACER RIPRAP PLACER em Danika Upton, RN RN aa5 Josh Hanna MD MD wa Corrections: (The following items were deleted from the chart) 12/19 17:45 17:09 12/19/2017 17:09 Discharged to Home. Impression: Lower abdominal pain, em unspecified; Urinary tract infection, site not specified. Condition is Stable. Forms are Medication Reconciliation Form, Thank You Letter, Antibiotic Education, Prescription Opioid Use. Follow up: Josh Driscoll; When: 2 - 3 days; Reason: Recheck today's complaints, Continuance of care, Re-evaluation by your physician. jael
[2017-12-19 17:55] VITALS: TEMP 97
[2017-12-19 17:57] VITALS: O2SAT 99
[2017-12-19 17:58] VITALS: BP 138/61
== END 2017-12-19 17:45 | disposition home or self-care (01) ==
LOC: ER 11:55
DX: N39.0 Urinary tract infection, site not specified (principal); E11.9 Type 2 diabetes mellitus without complications; E78.00 Pure hypercholesterolemia, unspecified; I10 Essential (primary) hypertension; F31.9 Bipolar disorder, unspecified
CPT/HCPCS: 36415; 74177; 80048; 80076; 82150; 83690; 85025; 87086; 87088; 96374; 96375; 99284; J2405; Q9967; 81003; 81015

== ENCOUNTER 2018-07-30 12:27 | Emergency (ER) | payer OTHER ==
--- OUTSIDE RECORDS SUMMARY | 2018-07-30 12:30 | XMS REPORT | Continuity of Care Document ---
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 [place] RIGHT CUBITAL TUNNEL Inactive Condition 04/19/2013 [facility] [...] TABS Longer 012 [facility] VITAMIN D CAPS per other Active [place] [facility] DEPAKOTE TBEC per other Active [place] [facility] HYDROXYCHLOROQUINE 1 tab qd Active [facility] SULFATE 200 MG TABS 012 [facility] GLIPIZIDE TABS per other [...] 011 [facility] Active [facility] VITAMIN D 43494 UNIT 1 tab No [facility] CAPS once a Longer 010 Bone & week for Active Joint two weeks VITAMIN D 44951 UNIT 1 tab No [facility] CAPS once [...] EXAM: MRI BRAIN WITHOUT CONTRAST 01/13 - [facility] contrast contrast /2015 - [place] [facility] MRI DATE: 01/14/2016 11:47 AM CDT [...] Mild chronic small vessel ischemic change. SL: [id number] Chemistry CRP <1.0 mg/L 0.0 - 4.9 [...] [facility] Chemistry CREATININE 0.97 mg/dL 4.5 - 12.0 03/08 [facility] Chemistry CREATININE 0.97 mg/dL [...] Type Number For Provider Date Date Visit [facility] Lab Report [id number] Surjit 06/19 06/19 [facility] Becky [place] /2011 [facility] Office [id number] Surjit 06/19 06/19 [place] 70 Becky [place] /2011 Bone [facility] Office Joint [facility] Lab Report [id number] Surjit 06/30 06/30 [facility] 10 Becky [place] /2011 [facility] CLINIC [place] Office [id number] Kristina 08/28 08/28 [place] [facility] Visit 20 [facility] [place] Lab Report [id number] Kristina 10/28 10/28 [facility] 50 Car[facility] [place] [facility] [id number] Kristina 10/29 10/29 [facility] 40 [facility] [place] Lab Report [id number] Kristina 03/02 03/02 [facility] 80 Carola [place] /2011 [facility] [place] Lab Report [id number] Kristina 09/01 09/01 [facility] 80 Carola [place] /2012 [facility] [place] Lab Report [id number] Surjit 04/19 04/19 [facility] 30 Becky [facility] Procedures Procedure Code Date Perfomer Comments Source genitourinary review 650833.9 10/30/2011 denies loss of [facility] Bone of systems, E&M urine, frequent & Joint urination, painful urination, blood in urine or kidney stones genitourinary review 994744.9 08/29/2011 denies loss of [facility] of systems, E&M urine, frequent & Joint urination, painful urination, blood in urine or kidney stones genitourinary review 049688.9 06/20/2011 denies loss of [facility] of systems, E&M urine, frequent & Joint urination, painful urination, blood in urine or kidney stones genitourinary review 294772.9 04/08/2011 denies loss of [facility] Bone of systems, E&M urine, frequent & Joint urination, painful urination, blood in urine or kidney stones genitourinary review 811766.9 02/14/2011 denies loss of [facility] Bone of systems, E&M urine, frequent & Joint urination, painful urination, blood in urine or kidney stones genitourinary review 280799.9 01/16/2011 frequent [facility] of systems, E&M urination & Joint genitourinary review 741230.9 07/11/2010 frequent [facility] Bone of systems, E&M urination & Joint genitourinary review 305109.9 04/05/2010 frequent [facility] Bone of systems, E&M urination & Joint genitourinary review 453327.9 11/28/2009 frequent [facility] of systems, E&M urination & Joint genitourinary review 195016.9 06/07/2009 frequent [facility] Bone of systems, E&M urination & Joint
--- OUTSIDE RECORDS SUMMARY | 2018-07-30 12:31 | XMS REPORT | Continuity of Care Document ---
:1950 Author Organization [facility] Team Providers Name [...] TABS 1 po qd Inactive VITAMIN D 21209 UNIT CAPS 1 tab once a week [...]
--- OUTSIDE RECORDS SUMMARY | 2018-07-30 12:31 | XMS REPORT | Continuity of Care Document ---
:1950 Author Organization [facility] Team Providers Name Role Phone Kristina Srivastava MD Unavailable Unavailable Encounters Encounter Performer Location Date Lab Report Kristina Srivastava MD [facility] Mar 02, 2012 [...] TABS 1 po qd Inactive VITAMIN D 53510 UNIT CAPS 1 tab once a week [...]
--- OUTSIDE RECORDS SUMMARY | 2018-07-30 12:31 | XMS REPORT | Continuity of Care Document ---
:1950 Author Organization [facility] Team Providers Name Role Phone Kristina Srivastava MD Unavailable Unavailable Encounters Encounter Performer Location Date Lab Report Kristina Srivastava MD [facility] Oct 29, 2011 [...] TABS 1 po qd Inactive VITAMIN D 72982 UNIT CAPS 1 tab once a week [...]
--- OUTSIDE RECORDS SUMMARY | 2018-07-30 12:31 | XMS REPORT | Continuity of Care Document ---
:1950 Author Organization [facility] Team Providers Name Role Phone Surjit Pena MD Unavailable Unavailable Encounters Encounter Performer Location Date Office Visit Surjit Pena MD [place] [facility] Jun 20, 2011 Problems Problem Effective [...] TABS 1 po qd Inactive VITAMIN D 90405 UNIT CAPS 1 tab once a week [...]
--- OUTSIDE RECORDS SUMMARY | 2018-07-30 12:31 | XMS REPORT | Continuity of Care Document ---
[...] TABS 1 po qd Inactive VITAMIN D 85355 UNIT CAPS 1 tab once a week [...]
--- OUTSIDE RECORDS SUMMARY | 2018-07-30 12:31 | XMS REPORT | Continuity of Care Document ---
:1950 Author Organization [facility] Care Team Providers Name Role Phone Surjit Pena MD Unavailable Unavailable Encounters Encounter Performer Location Date Lab Report Surjit Pena MD [facility] Jun 20, 2011 [...] TABS 1 po qd Inactive VITAMIN D 31507 UNIT CAPS 1 tab once a week [...]
--- OUTSIDE RECORDS SUMMARY | 2018-07-30 12:31 | XMS REPORT | Continuity of Care Document ---
:1950 Author Organization [facility] Care Team Providers Name Role Phone Surjit Pena MD Unavailable Unavailable Encounters Encounter Performer Location Date Lab Report Surjit Pena MD [facility] Jul 01, 2011 [...] TABS 1 po qd Inactive VITAMIN D 44251 UNIT CAPS 1 tab once a week [...]
--- OUTSIDE RECORDS SUMMARY | 2018-07-30 12:32 | XMS REPORT | Continuity of Care Document ---
:1950 Author Organization [facility] Team Providers Name Role Phone Surjit Pena MD Unavailable Unavailable Insurance Providers Payer name Policy type / Coverage Policy ID Covered green party ID Policy Martinez type AARP Medicare Complete [...] TABS 1 po qd Inactive VITAMIN D 41065 UNIT CAPS 1 tab once a week [...] 34.0-44.0 2010Mar 08, platelet count PLATELETS 255 [phone] X10E3/UL 10*3/mm3 Jul 01, hemoglobin, blood HGB 12.4 g/dL 11.5-15.0 2011Jul 01, hematocrit, blood HCT 37.6 % 34.0-44.0 2011Jul 01, platelet count PLATELETS 240 [phone] X10E3/UL 10*3/mm3 September 02, hemoglobin, blood HGB 12.4 g/dL 11.1-15.9 2012September 02, hematocrit, blood HCT 37.0 % 34.0-46.6 2012September 02, platelet count PLATELETS 247 [phone] X10E3/UL 10*3/mm3 September 02, erythrocyte ESR 24 mm/hr 0-40 2012 sedimentation rate Mar 08, creatinine, serum CREATININE 0.97 mg/dL 0.57-1.00 2010Jul 01, creatinine, serum CREATININE 0.97 mg/dL 0.57-1.00 2011September 02, C-reactive protein, CRP <1.0 mg/L 0.0-4.9 2012 serum mg/dL
--- OUTSIDE RECORDS SUMMARY | 2018-07-30 12:32 | XMS REPORT | Continuity of Care Document ---
:1950 Author Organization [facility] Team Providers Name Role Phone Kristina Srivastava MD Unavailable Unavailable Insurance Providers Payer name Policy type / Coverage Policy ID Covered democrat ID Policy Martinez type AARP Medicare Complete [...] TABS 1 po qd Inactive VITAMIN D 29545 UNIT CAPS 1 tab once a week [...] 34.0-44.0 2010Mar 08, platelet count PLATELETS 255 [phone] X10E3/UL 10*3/mm3 Jul 01, hemoglobin, blood HGB 12.4 g/dL 11.5-15.0 2011Jul 01, hematocrit, blood HCT 37.6 % 34.0-44.0 2011Jul 01, platelet count PLATELETS 240 [phone] X10E3/UL 10*3/mm3 September 02, hemoglobin, blood HGB 12.4 g/dL 11.1-15.9 2012September 02, hematocrit, blood HCT 37.0 % 34.0-46.6 2012September 02, platelet count PLATELETS 247 [phone] X10E3/UL 10*3/mm3 September 02, erythrocyte ESR 24 mm/hr 0-40 2012 sedimentation rate Mar 08, creatinine, serum CREATININE 0.97 mg/dL 0.57-1.00 2010Jul 01, creatinine, serum CREATININE 0.97 mg/dL 0.57-1.00 2011September 02, C-reactive protein, CRP <1.0 mg/L 0.0-4.9 2012 serum mg/dL
[2018-07-30 13:28] LABS: Potassium 4.5 mmol/L (3.5-5.1)
--- NOTE | 2018-07-30 13:45 | ER ---
Nurse's Notes [facility] Name: Izabela Minor Age: 67 yrs Sex: Female : 1950 Arrival Date: 07/30/2018 Time: 12:30 Bed 18 Private MD: Josh Driscoll E Diagnosis: Muscle spasm of back Presentation: 07/30 12:32 Presenting complaint: Patient states: head and arm muscle spasms, nausea, cough x 1 sv day. Transition of care: patient was not received from another setting of care. Onset of symptoms was July 29, 2018. Care prior to arrival: None. 12:32 Method Of Arrival: Ambulatory sv 12:32 Acuity: NIYA 3 sv Triage Assessment: 12:33 General: Appears in no apparent distress. uncomfortable, Behavior is calm, cooperative, sv appropriate for age. Neuro: Level of Consciousness is awake, alert, obeys commands, Oriented to person, place, time, Appropriate for age Gait is steady. Respiratory: Respiratory effort is even, unlabored, Respiratory pattern is regular, symmetrical. Historical: - Allergies: 12:33 No Known Drug Allergies; sv - PMHx: 12:33 Bipolar disorder; Diabetes - IDDM; High Cholesterol; Hypertension; Rheumatoid sv Arthritis; sarcoidosis; - PSHx: 12:33 Kidney stents; Tubal ligation; sv - Social history:: Patient/guardian denies using alcohol, street drugs, The patient lives with family. - Family history:: not pertinent. Screenin:00 Abuse screen: Denies threats or abuse. Nutritional screening: No deficits noted. em Tuberculosis screening: No symptoms or risk factors identified. Fall Risk None identified. Assessment: 13:00 General: Appears in no apparent distress. comfortable, Behavior is calm, cooperative. em Pain: Complains of pain in right arm and left arm Pain currently is 8 out of 10 on a pain scale. Neuro: Level of Consciousness is awake, alert, obeys commands, Oriented to person, place, time, situation, Gait is steady, Speech is normal. Cardiovascular: Capillary refill < 3 seconds Patient's skin is warm and dry. Respiratory: Airway is patent Respiratory effort is even, unlabored, Respiratory pattern is regular, symmetrical. Derm: Skin is intact, is healthy with good turgor, Skin is pink, warm \T\ dry. Musculoskeletal: Capillary refill < 3 seconds, Range of motion: intact in all extremities, Reports muscle spasms in right and leg arm, and top of head. Vital Signs: 12:33 BP 148 / 82; Pulse 65; Resp 18; Temp 98.2; Pulse Ox 96% ; Weight 104.33 kg; Height 5 sv ft. 9 in. (175.26 cm); Pain 8/10; 14:39 BP 137 / 79; Pulse 58; Resp 18; Pulse Ox 99% on R/A; em 12:33 Body Mass Index 33.96 (104.33 kg, 175.26 cm) sv ED Course: 12:30 Patient arrived in ED. mr 12:30 Josh Driscoll MD is Private Physician. mr 12:32 Triage completed. sv 12:33 Arm band placed on. sv 12:34 Daphne Griffin MD is Attending Physician. ma2 12:35 Bryce Avendano LVN is Primary Nurse. em 13:00 Patient has correct armband on for positive identification. Bed in low position. Call em light in reach. Pulse ox on. NIBP on. 13:00 Inserted saline lock: 22 gauge in left antecubital area, using aseptic technique. Blood em collected. 13:00 Initial lab(s) drawn, by me, sent to lab. em 14:38 No provider procedures requiring assistance completed. IV discontinued, intact, em bleeding controlled, No redness/swelling at site. Pressure dressing applied. Administered Medications: No medications were administered Outcome: 13:44 Discharge ordered by . ma2 14:38 Discharged to home ambulatory. em 14:38 Condition: good 14:38 Discharge instructions given to patient, Instructed on discharge instructions, follow up and referral plans. medication usage, Demonstrated understanding of instructions, follow-up care, medications, Prescriptions given X 1. 14:39 Patient left the ED. em Signatures: Yvette Wong RN RN sv Rivera, Mary mr Bryce Avendano, SARI WHEELERN em Daphne Griffin MD MD ma2
--- NOTE | 2018-07-30 13:45 | EDPHYS ---
Physician Documentation [facility] Name: Izabela Phillips Age: 67 yrs Sex: Female : 1950 Arrival Date: 07/30/2018 Time: 12:30 Bed 18 Private MD: Josh Driscoll E ED Physician Daphne Griffin HPI: 07/30 13:42 This 67 yrs old Black Female presents to ER via Ambulatory with complaints of Muscle ma2 spasms. 13:42 muscle spasm on back and left elbow, constant unchanged. Onset: The symptoms/episode ma2 began/occurred gradually, 1 day(s) ago. Severity of symptoms: At their worst the symptoms were moderate in the emergency department the symptoms are unchanged. The patient has not experienced similar symptoms in the past. Historical: - Allergies: 12:33 No Known Drug Allergies; sv - PMHx: 12:33 Bipolar disorder; Diabetes - IDDM; High Cholesterol; Hypertension; Rheumatoid sv Arthritis; sarcoidosis; - PSHx: 12:33 Kidney stents; Tubal ligation; sv - Social history:: Patient/guardian denies using alcohol, street drugs, The patient lives with family. - Family history:: not pertinent. ROS: 13:42 Constitutional: Negative for fever, chills, and weight loss. ma2 13:42 MS/extremity: Positive for pain, Negative for acute changes, bite, decreased range of motion, rash. 13:42 All other systems are negative. Exam: 13:42 Constitutional: This is a well developed, well nourished patient who is awake, alert, ma2 and in no acute distress. Chest/axilla: Normal chest wall appearance and motion. Nontender with no deformity. No lesions are appreciated. Cardiovascular: Regular rate and rhythm with a normal S1 and S2. No gallops, murmurs, or rubs. Normal PMI, no JVD. No pulse deficits. Respiratory: Lungs have equal breath sounds bilaterally, clear to auscultation and percussion. No rales, rhonchi or wheezes noted. No increased work of breathing, no retractions or nasal flaring. Abdomen/GI: Soft, non-tender, with normal bowel sounds. No distension or tympany. No guarding or rebound. No evidence of tenderness throughout. Skin: Warm, dry with normal turgor. Normal color with no rashes, no lesions, and no evidence of cellulitis. Neuro: Awake and alert, GCS 15, oriented to person, place, time, and situation. Cranial nerves II-XII grossly intact. Motor strength 5/5 in all extremities. Sensory grossly intact. Cerebellar exam normal. Normal gait. 13:42 Musculoskeletal/extremity: Extremities: mild ttp on left scapula , ROM: intact in all extremities, Circulation is intact in all extremities. Sensation intact. Vital Signs: 12:33 BP 148 / 82; Pulse 65; Resp 18; Temp 98.2; Pulse Ox 96% ; Weight 104.33 kg; Height 5 sv ft. 9 in. (175.26 cm); Pain 8/10; 14:39 BP 137 / 79; Pulse 58; Resp 18; Pulse Ox 99% on R/A; em 12:33 Body Mass Index 33.96 (104.33 kg, 175.26 cm) sv MDM: 12:34 Patient medically screened. ma2 13:42 Differential Diagnosis muscle spasm vs s/e to statins vs sarcoid and gout . Data ma2 reviewed: vital signs, nurses notes. Counseling: I had a detailed discussion with the patient and/or guardian regarding: the historical points, exam findings, and any diagnostic results supporting the discharge/admit diagnosis, the presence of at least one elevated blood pressure reading (>120/80) during this emergency department visit, the need for outpatient follow up. 07/30 12:46 Order name: JEFERSON ma2 07/30 12:47 Order name: Basic Metabolic Panel; Complete Time: 13:41 [facility] 07/30 12:34 Order name: NPO; Complete Time: 12:46 [facility] Administered Medications: No medications were administered Disposition: 07/30/18 13:44 Discharged to Home. Impression: Muscle spasm of back. - Condition is Stable. - Prescriptions for Cyclobenzaprine 10 mg Oral Tablet - take 1 tablet by ORAL route every 8 hours As needed; 30 tablet. - Medication Reconciliation Form, Thank You Letter, Antibiotic Education, Prescription Opioid Use form. - Follow up: Private Physician; When: Tomorrow; Reason: Continuance of care. Signatures: Dispatcher [employer] Yvette Daigle RN RN sv Munoz, Edgar, FRUIT WORKER FRUIT WORKER Daphne Griffin MD MD ut2 Corrections: (The following items were deleted from the chart) 14:39 13:44 07/30/2018 13:44 Discharged to Home. Impression: Muscle spasm of back. Condition em is Stable. Prescriptions for Cyclobenzaprine 10 mg Oral Tablet - take 1 tablet by ORAL route every 8 hours As needed; 30 tablet. and Forms are Medication Reconciliation Form, Thank You Letter, Antibiotic Education, Prescription Opioid Use. Follow up: Private Physician; When: Tomorrow; Reason: Continuance of care. ma2
[2018-07-30 14:45] VITALS: TEMP 98.2
[2018-07-30 14:46] VITALS: BP 137/79; O2SAT 99
== END 2018-07-30 14:39 | disposition home or self-care (01) ==
LOC: ER 12:27
DX: M62.830 Muscle spasm of back (principal)
CPT/HCPCS: 36415; 80048; 99284

== ENCOUNTER 2018-08-21 00:01 | Emergency (ER) | payer OTHER ==
--- OUTSIDE RECORDS SUMMARY | 2018-08-21 00:04 | XMS REPORT | Continuity of Care Document ---
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 [facility] RIGHT CUBITAL TUNNEL Inactive Condition 04/19/2013 [facility] HYPERCHOLESTEROLEMIA Active Condition 04/19/2013 [facility] BIPOLAR DISORDER Active Condition 04/19/2013 [facility] UNSPECIFIED [facility] RIGHT CARPAL TUNNEL Inactive Condition 04/19/2013 [facility] SYNDROME [facility] ARTHRITIS, RHEUMATOID [...] 011 [facility] Active Joint VITAMIN D 92863 UNIT 1 tab No [facility] CAPS once a Longer 010 Bone & week for Active Joint two weeks VITAMIN D 58223 UNIT 1 tab No [facility] CAPS once [...] EXAM: MRI BRAIN WITHOUT CONTRAST 01/13 - [facility] contrast contrast /2015 - [facility] MRI DATE: 01/14/2016 11:47 AM CDT Read by: Dav Ely MD Dictated Date/time: 01/17/16 07:27 Electronically Signed by: Dav lEy MD 01/17/16 07:47 FINAL REPORT INDICATION: F03.90 [...] Mild chronic small vessel ischemic change. SL: [id number] Chemistry CRP <1.0 mg/L 0.0 - 4.9 [...] Chemistry CREATININE 0.97 mg/dL 0.57 - 07/01 [facility]. [facility] Chemistry CREATININE 0.97 [...] Provider Date Date Visit [facility] Lab Report [id number] Surjit 06/19 06/19 [facility] Becky [place] /2011 [facility] Office [id number] Surjit 06/19 06/19 [place] 70 Becky [place] /2011 Bone [facility] Lab Report [id number] Surjit 06/30 06/30 [facility] 10 Becky [place] /2011 [facility] [place] Office [id number] Kristina 08/28 08/28 [place] Office Visit 20 [facility] [place] Lab Report [id number] Kristina 10/28 10/28 [facility] 50 [facility] [place] [facility] [id number] Kristina 10/29 10/29 [facility] Visit 40 [facility] Lab Report [id number] Kristina 03/02 03/02 [facility] 80 Carola [place] /2011 [facility] [place] Lab Report [id number] Kristina 09/01 09/01 [facility] 80 Carola [place] /2012 [facility] [place] Lab Report [id number] Surjit 04/19 04/19 [facility] 30 [facility] Procedures Procedure Code Date Perfomer Comments Source genitourinary review 619040.9 10/30/2011 denies loss of [facility] Bone of systems, E&M urine, frequent & Joint urination, painful urination, blood in urine or kidney stones genitourinary review 231136.9 08/29/2011 denies loss of [facility] Bone of systems, E&M urine, frequent & Joint urination, painful urination, blood in urine or kidney stones genitourinary review 134276.9 06/20/2011 denies loss of [facility] of systems, E&M urine, frequent & Joint urination, painful urination, blood in urine or kidney stones genitourinary review 353220.9 04/08/2011 denies loss of [facility] Bone of systems, E&M urine, frequent & Joint urination, painful urination, blood in urine or kidney stones genitourinary review 328891.9 02/14/2011 denies loss of [facility] Bone of systems, E&M urine, frequent & Joint urination, painful urination, blood in urine or kidney stones genitourinary review 100231.9 01/16/2011 frequent [facility] of systems, E&M urination & Joint genitourinary review 798764.9 07/11/2010 frequent [facility] Bone of systems, E&M urination & Joint genitourinary review 406871.9 04/05/2010 frequent [facility] of systems, E&M urination & Joint genitourinary review 586796.9 11/28/2009 frequent [facility] of systems, E&M urination & Joint genitourinary review 982041.9 06/07/2009 frequent [facility] of systems, E&M urination & Joint
--- OUTSIDE RECORDS SUMMARY | 2018-08-21 00:05 | XMS REPORT | Continuity of Care Document ---
:1950 Author Organization [facility] Team Providers Name Role Phone Kristina Srivastava MD Unavailable Unavailable Encounters Encounter Performer Location Date Lab Report Kristina Srivastava MD [facility] Oct 29, 2011 [...] TABS 1 po qd Inactive VITAMIN D 17224 UNIT CAPS 1 tab once a week [...]
--- OUTSIDE RECORDS SUMMARY | 2018-08-21 00:05 | XMS REPORT | Continuity of Care Document ---
[...] TABS 1 po qd Inactive VITAMIN D 49816 UNIT CAPS 1 tab once a week [...]
--- OUTSIDE RECORDS SUMMARY | 2018-08-21 00:05 | XMS REPORT | Continuity of Care Document ---
:1950 Author Organization [facility] Team Providers Name Role Phone Surjit Pena MD Unavailable Unavailable Encounters Encounter Performer Location Date Lab Report Surjit Pena MD [facility] Jun 20, 2011 [...] TABS 1 po qd Inactive VITAMIN D 25902 UNIT CAPS 1 tab once a week [...]
--- OUTSIDE RECORDS SUMMARY | 2018-08-21 00:05 | XMS REPORT | Continuity of Care Document ---
:1950 Author Organization [facility] Team Providers Name Role Phone Surjit Pena MD Unavailable Unavailable Encounters Encounter Performer Location Date Lab Report Surjit Pena MD [facility] Jul 01, 2011 [...] TABS 1 po qd Inactive VITAMIN D 88388 UNIT CAPS 1 tab once a week [...]
--- OUTSIDE RECORDS SUMMARY | 2018-08-21 00:05 | XMS REPORT | Continuity of Care Document ---
[...] TABS 1 po qd Inactive VITAMIN D 01311 UNIT CAPS 1 tab once a week [...]
--- OUTSIDE RECORDS SUMMARY | 2018-08-21 00:05 | XMS REPORT | Continuity of Care Document ---
:1950 Author Organization [facility] Team Providers Name Role Phone Surjit Pena MD Unavailable Unavailable Encounters Encounter Performer Location Date Office Visit Surjit Pena MD [facility] Jun 20, 2011 Problems Problem Effective [...] TABS 1 po qd Inactive VITAMIN D 46256 UNIT CAPS 1 tab once a week [...]
--- OUTSIDE RECORDS SUMMARY | 2018-08-21 00:06 | XMS REPORT | Continuity of Care Document ---
:1950 Author Organization [facility] Team Providers Name Role Phone Kristina Srivastava MD Unavailable Unavailable Encounters Encounter Performer Location Date Lab Report Kristina Srivastava MD [facility] Mar 02, 2012 [...] TABS 1 po qd Inactive VITAMIN D 14490 UNIT CAPS 1 tab once a week [...]
--- OUTSIDE RECORDS SUMMARY | 2018-08-21 00:06 | XMS REPORT | Continuity of Care Document ---
:1950 Author Organization [facility] Team Providers Name Role Phone Kristina Srivastava MD Unavailable Unavailable Insurance Providers Payer name Policy type / Coverage Policy ID Covered constitution party ID Policy Martinez type AARP Medicare [...] TABS 1 po qd Inactive VITAMIN D 37582 UNIT CAPS 1 tab once a week [...] 34.0-44.0 2010Mar 08, platelet count PLATELETS 255 [phone] X10E3/UL 10*3/mm3 Jul 01, hemoglobin, blood HGB 12.4 g/dL 11.5-15.0 2011Jul 01, hematocrit, blood HCT 37.6 % 34.0-44.0 2011Jul 01, platelet count PLATELETS 240 [phone] X10E3/UL 10*3/mm3 September 02, hemoglobin, blood HGB 12.4 g/dL 11.1-15.9 2012September 02, hematocrit, blood HCT 37.0 % 34.0-46.6 2012September 02, platelet count PLATELETS 247 [phone] X10E3/UL 10*3/mm3 September 02, erythrocyte ESR 24 mm/hr 0-40 2012 sedimentation rate Mar 08, creatinine, serum CREATININE 0.97 mg/dL 0.57-1.00 2010Jul 01, creatinine, serum CREATININE 0.97 mg/dL 0.57-1.00 2011September 02, C-reactive protein, CRP <1.0 mg/L 0.0-4.9 2012 serum mg/dL
--- OUTSIDE RECORDS SUMMARY | 2018-08-21 00:06 | XMS REPORT | Continuity of Care Document ---
[...] TABS 1 po qd Inactive VITAMIN D 52121 UNIT CAPS 1 tab once a week [...] 34.0-44.0 2010Mar 08, platelet count PLATELETS 255 [phone] X10E3/UL 10*3/mm3 Jul 01, hemoglobin, blood HGB 12.4 g/dL 11.5-15.0 2011Jul 01, hematocrit, blood HCT 37.6 % 34.0-44.0 2011Jul 01, platelet count PLATELETS 240 [phone] X10E3/UL 10*3/mm3 September 02, hemoglobin, blood HGB 12.4 g/dL 11.1-15.9 2012September 02, hematocrit, blood HCT 37.0 % 34.0-46.6 2012September 02, platelet count PLATELETS 247 [phone] X10E3/UL 10*3/mm3 September 02, erythrocyte ESR 24 mm/hr 0-40 2012 sedimentation rate Mar 08, creatinine, serum CREATININE 0.97 mg/dL 0.57-1.00 2010Jul 01, creatinine, serum CREATININE 0.97 mg/dL 0.57-1.00 2011September 02, C-reactive protein, CRP <1.0 mg/L 0.0-4.9 2012 serum mg/dL
[2018-08-21] MEDS ORDERED: IPRATROPIUM BROM 0.5MG/2.5ML ONE (00:37)
[2018-08-21] MEDS ORDERED: ALBUTEROL 2.5 MG/3 ML NEB SOL ONE (00:37)
--- NOTE | 2018-08-21 01:27 | ER ---
Nurse's Notes [facility] Name: Izabela Minor Age: 67 yrs Sex: Female : 1950 Arrival Date: 08/21/2018 Time: 00:05 Bed 8 Private MD: Josh Driscoll E Diagnosis: Bronchitis, not specified as acute or chronic Presentation: 08/21 00:17 Presenting complaint: Patient states: she has had a cough for a week and went to her bb PCP yesterday was given an allergy shot and some cough medicine but she went to sleep tonight and woke up coughing, choking and gagging so she came to ED pt denies any fever. Transition of care: patient was not received from another setting of care. Onset of symptoms was August 14, 2018. Risk Assessment: Do you want to hurt yourself or someone else? Patient reports no desire to harm self or others. Initial Sepsis Screen: Does the patient meet any 2 criteria? No. Patient's initial sepsis screen is negative. Does the patient have a suspected source of infection? No. Patient's initial sepsis screen is negative. Care prior to arrival: None. 00:17 Method Of Arrival: Ambulatory bb 00:17 Acuity: NIYA 3 bb Triage Assessment: 00:21 General: Appears in no apparent distress. uncomfortable, Behavior is calm, cooperative, cc3 appropriate for age. Pain: Denies pain. EENT: No signs and/or symptoms were reported regarding the EENT system. Neuro: Level of Consciousness is awake, alert, obeys commands, Oriented to person, place, time, situation, Appropriate for age. Cardiovascular: Patient's skin is warm and dry. Respiratory: Airway is patent Respiratory effort is even, unlabored, Respiratory pattern is regular, symmetrical. GI: Abdomen is round non-distended. : No signs and/or symptoms were reported regarding the genitourinary system. Derm: No signs and/or symptoms reported regarding the dermatologic system. Musculoskeletal: Circulation, motion, and sensation intact. Range of motion: intact in all extremities. 00:21 Respiratory: Breath sounds are clear bilaterally. cc3 Historical: - Allergies: 00:22 No Known Allergies; bb - Home Meds: 00:22 amlodipine 10 mg tab 1 tab once daily [Active]; carvedilol 25 mg Oral tab 1 tab 2 times bb per day [Active]; gabapentin 200 mg BID Oral [Active]; Glipizide Oral [Active]; Hydrochlorothiazide Oral [Active]; losartan Oral [Active]; simvastatin 40 mg Oral tab 1 tab once daily [Active]; Albuterol Inhl [Active]; - PMHx: 00:22 Bipolar disorder; Diabetes - IDDM; High Cholesterol; Hypertension; Rheumatoid bb Arthritis; sarcoidosis; - PSHx: 00:22 Kidney stents; Tubal ligation; polyps removed; bb - Immunization history:: Adult Immunizations up to date. - Social history:: Smoking status: Patient/guardian denies using tobacco. - Ebola Screening: : No symptoms or risks identified at this time. Screenin:21 Abuse screen: Denies threats or abuse. Denies injuries from another. Nutritional cc3 screening: No deficits noted. Tuberculosis screening: No symptoms or risk factors identified. Fall Risk Ambulatory Aid- None/Bed Rest/Nurse Assist (0 pts). Gait- Normal/Bed Rest/Wheelchair (0 pts) Mental Status- Oriented to own ability (0 pts). Assessment: 00:21 Reassessment: Patient appears in no apparent distress at this time. Patient and/or cc3 family updated on plan of care and expected duration. Pain level reassessed. Patient is alert, oriented x 3, equal unlabored respirations, skin warm/dry/pink. Cardiovascular: Patient's skin is warm and dry. Respiratory: Airway is patent Respiratory effort is even, unlabored, Respiratory pattern is regular, symmetrical. 01:50 Reassessment: Patient appears in no apparent distress at this time. Patient and/or cc3 family updated on plan of care and expected duration. Pain level reassessed. Patient is alert, oriented x 3, equal unlabored respirations, skin warm/dry/pink. Dr. Mullen discharged home the patient with prescription given. No IV cannula in situ. Patient left ER vitally stable and ambulatory with her daughter. Patient denies pain at this time. Patient states feeling better. Patient states symptoms have improved. Vital Signs: 00:22 BP 149 / 72; Pulse 84; Resp 18 S; Temp 98.6(O); Pulse Ox 98% on R/A; Weight 104.33 kg bb (R); Height 5 ft. 9 in. (175.26 cm) (R); 01:32 BP 127 / 65; Pulse 74; Resp 18 S; Pulse Ox 96% on R/A; cc3 00:22 Body Mass Index 33.96 (104.33 kg, 175.26 cm) ED Course: 00:05 Patient arrived in ED. mr 00:06 Josh Driscoll MD is Private Physician. mr 00:12 Raphael Mullen MD is Attending Physician. tw4 00:20 Triage completed. bb 00:21 Adrienne Malone is Primary Nurse. cc3 00:21 Patient has correct armband on for positive identification. Placed in gown. Bed in low cc3 position. Call light in reach. Side rails up X 1. ekg monitor tech on. Pulse ox on. NIBP on. 00:22 Arm band placed on Patient placed in an exam room, on a stretcher, on pulse oximetry. bb 00:38 CXR XRAY In Process Unspecified. EDMS 01:26 Josh Driscoll MD is Referral Physician. tw4 01:50 No provider procedures requiring assistance completed. Patient did not have IV access cc3 during this emergency room visit. Administered Medications: 00:25 Drug: DuoNeb (3:1) (2.5 mg - 0.5 mg) 3 ml Route: Nebulizer; cc3 01:30 Follow up: Response: No adverse reaction; Marked relief of symptoms cc3 Outcome: 01:27 Discharge ordered by . tw4 01:50 Discharged to home ambulatory, with family. cc3 01:50 Condition: stable 01:50 Discharge instructions given to patient, family, Instructed on discharge instructions, follow up and referral plans. medication usage, Demonstrated understanding of instructions, follow-up care, medications, Prescriptions given X 2. 02:00 Patient left the ED. cc3 Signatures: Dispatcher [employer] [facility] Heather Adair MottaMireille, RN RN bb Raphael Mullen MD MD tw4 Adrienne Malone cc3
--- NOTE | 2018-08-21 01:28 | EDPHYS ---
Physician Documentation [facility] Name: Izabela Minor Age: 67 yrs Sex: Female : 1950 Arrival Date: 08/21/2018 Time: 00:05 Bed 8 Private MD: Josh Driscoll E ED Physician Raphael Mullen HPI: 08/21 07:12 This 67 yrs old Black Female presents to ER via Ambulatory with complaints of Cough, tw4 Congestion. 07:12 The patient or guardian reports cough. Onset: The symptoms/episode began/occurred tw4 today. Severity of symptoms: At their worst the symptoms were moderate, in the emergency department the symptoms are unchanged. Modifying factors: The symptoms are alleviated by nothing, the symptoms are aggravated by nothing. The patient has not experienced similar symptoms in the past. Historical: - Allergies: 00:22 No Known Allergies; bb - Home Meds: 00:22 amlodipine 10 mg tab 1 tab once daily [Active]; carvedilol 25 mg Oral tab 1 tab 2 times bb per day [Active]; gabapentin 200 mg BID Oral [Active]; Glipizide Oral [Active]; Hydrochlorothiazide Oral [Active]; losartan Oral [Active]; simvastatin 40 mg Oral tab 1 tab once daily [Active]; Albuterol Inhl [Active]; - PMHx: 00:22 Bipolar disorder; Diabetes - IDDM; High Cholesterol; Hypertension; Rheumatoid bb Arthritis; sarcoidosis; - PSHx: 00:22 Kidney stents; Tubal ligation; polyps removed; bb - Immunization history:: Adult Immunizations up to date. - Social history:: Smoking status: Patient/guardian denies using tobacco. - Ebola Screening: : No symptoms or risks identified at this time. ROS: 07:12 Constitutional: Negative for fever, chills, and weight loss, Eyes: Negative for injury, tw4 pain, redness, and discharge, Cardiovascular: Negative for chest pain, palpitations, and edema, Abdomen/GI: Negative for abdominal pain, nausea, vomiting, diarrhea, and constipation, Back: Negative for injury and pain. 07:12 MS/Extremity: Negative for injury and deformity, Skin: Negative for injury, rash, and discoloration, Neuro: Negative for headache, weakness, numbness, tingling, and seizure. 07:12 Respiratory: Positive for cough, wheezing. Exam: 07:12 Constitutional: This is a well developed, well nourished patient who is awake, alert, tw4 and in no acute distress. Head/Face: Normocephalic, atraumatic. Chest/axilla: Normal chest wall appearance and motion. Nontender with no deformity. No lesions are appreciated. Cardiovascular: Regular rate and rhythm with a normal S1 and S2. No gallops, murmurs, or rubs. Normal PMI, no JVD. No pulse deficits. Respiratory: Lungs have equal breath sounds bilaterally, clear to auscultation and percussion. No rales, rhonchi or wheezes noted. No increased work of breathing, no retractions or nasal flaring. Abdomen/GI: Soft, non-tender, with normal bowel sounds. No distension or tympany. No guarding or rebound. No evidence of tenderness throughout. Back: No spinal tenderness. No costovertebral tenderness. Full range of motion. MS/ Extremity: Pulses equal, no cyanosis. Neurovascular intact. Full, normal range of motion. Neuro: Awake and alert, GCS 15, oriented to person, place, time, and situation. Cranial nerves II-XII grossly intact. Motor strength 5/5 in all extremities. Sensory grossly intact. Cerebellar exam normal. Normal gait. Vital Signs: 00:22 BP 149 / 72; Pulse 84; Resp 18 S; Temp 98.6(O); Pulse Ox 98% on R/A; Weight 104.33 kg bb (R); Height 5 ft. 9 in. (175.26 cm) (R); 01:32 BP 127 / 65; Pulse 74; Resp 18 S; Pulse Ox 96% on R/A; cc3 00:22 Body Mass Index 33.96 (104.33 kg, 175.26 cm) bb MDM: 00:12 Patient medically screened. tw4 07:12 Differential Diagnosis: Obstructed Airway Bronchitis Influenza Pharyngitis. Data tw4 reviewed: vital signs, nurses notes. Data interpreted: Pulse oximetry: Interpretation: normal. Medication response: Response to treatment: the patient's symptoms have markedly improved after treatment, and as a result, I will discharge patient. Special discussion: I discussed with the patient/guardian in detail that at this point there is no indication for admission to the hospital. It is understood, however, that if the symptoms persist or worsen the patient needs to return immediately for re-evaluation. 08/21 00:19 Order name: CXR XRAY tw4 Administered Medications: 00:25 Drug: DuoNeb (3:1) (2.5 mg - 0.5 mg) 3 ml Route: Nebulizer; cc3 01:30 Follow up: Response: No adverse reaction; Marked relief of symptoms cc3 Disposition: 08/21/18 01:27 Discharged to Home. Impression: Bronchitis, not specified as acute or chronic. - Condition is Stable. - Discharge Instructions: Acute Bronchitis, Adult, Upper Respiratory Infection, Adult. - Prescriptions for Albuterol Sulfate 90 mcg/actuation - inhale 1-2 puff by INHALATION route every 4-6 hours; 1 Inhaler. Guaifenesin AC 10- 100 mg/5 mL Oral Liquid - take 10 milliliter by ORAL route every 4 hours As needed; 240 milliliter. - Medication Reconciliation Form, Thank You Letter, Antibiotic Education, Prescription Opioid Use form. - Follow up: Josh Driscoll MD; When: Upon discharge from the Emergency Department; Reason: If symptoms return, Recheck today's complaints, Continuance of care. - Problem is new. - Symptoms have improved. Signatures: Dispatcher [employer] EDMS Mireille Motta RN RN Raphael Adams MD MD tw4 Adrienne Malone cc3 Corrections: (The following items were deleted from the chart) 02:00 01:27 08/21/2018 01:27 Discharged to Home. Impression: Bronchitis, not specified as cc3 acute or chronic. Condition is Stable. Forms are Medication Reconciliation Form, Thank You Letter, Antibiotic Education, Prescription Opioid Use. Follow up: Josh Driscoll; When: Upon discharge from the Emergency Department; Reason: If symptoms return, Recheck today's complaints, Continuance of care. Problem is new. Symptoms have improved. tw4
[2018-08-21 04:09] VITALS: TEMP 98.6
[2018-08-21 04:10] VITALS: BP 127/65; O2SAT 96
--- NOTE | 2018-08-21 09:49 | RAD REPORT ---
EXAM DESCRIPTION: Cindy Single View08/21/2018 12:37 am CLINICAL HISTORY: Cough COMPARISON: 2017 FINDINGS: The lungs appear clear of acute infiltrate. The heart is normal size IMPRESSION: No acute abnormalities displayed
== END 2018-08-21 02:00 | disposition home or self-care (01) ==
LOC: ER 00:01
DX: J40 Bronchitis, not specified as acute or chronic (principal); I10 Essential (primary) hypertension; E11.9 Type 2 diabetes mellitus without complications; E78.00 Pure hypercholesterolemia, unspecified; F31.9 Bipolar disorder, unspecified
CPT/HCPCS: 71045; 94640; 99284

== ENCOUNTER 2019-04-19 15:26 | Emergency (ER) | payer OTHER ==
--- OUTSIDE RECORDS SUMMARY | 2019-04-19 15:28 | XMS REPORT ---
:1950 [facility] Address [address] [place] [address] [address]. V[address] [place] [address] Care Team Providers Name Role Phone Unavailable Unavailable Unavailable Problems This patient has no known problems. Allergies, Adverse Reactions, Alerts This patient has no known allergies or adverse reactions. Medications This patient has no known medications.
--- NOTE | 2019-04-19 16:11 | RAD REPORT ---
EXAM DESCRIPTION: CT - Head Brain Wo Cont - 04/19/2019 4:04 pm CLINICAL HISTORY: HEADACHE Headache, drowsiness COMPARISON: Head Brain Wo Cont dated 06/29/2016; HEAD BRAIN W O CONTRAST dated 05/14/2010 TECHNIQUE: All CT scans are performed using dose optimization technique as appropriate and may inclu de automated exposure control or mA/KV adjustment according to patient size. FINDINGS: No intracranial hemorrhage, hydrocephalus or extra-axial fluid collection.No areas of brai n edema or evidence of midline shift. Moderate mucosal thickening the left maxillary antrum noted. The paranasal sinuses and mastoids are o therwise clear. The calvarium is intact. IMPRESSION: No acute intracranial abnormality.
--- NOTE | 2019-04-19 16:21 | EDPHYS ---
Physician Documentation [facility] Name: Izabela Phillips Age: 68 yrs Sex: Female : 1950 Arrival Date: 04/19/2019 Time: 15:27 Bed 7 Private MD: ED Physician Mitchell Carbajal HPI: 04/19 16:17 This 68 yrs old Black Female presents to ER via Ambulatory with complaints of Headache. jr8 16:17 The patient complains of pain to the top of head and forehead. The patient describes jr8 the headache as throbbing. Onset: The symptoms/episode began/occurred acutely, today. Associated signs and symptoms: The patient has no apparent associated signs or symptoms. Severity of symptoms: At its worst the pain was moderate, in the emergency department the pain has resolved. Headache History: Denies prior headaches. The patient has not experienced similar symptoms in the past. The patient has not recently seen a physician. intermittent headache today that will not go away . Historical: - Allergies: 15:37 No Known Drug Allergies; hb - Home Meds: 15:37 Albuterol Inhl [Active]; amlodipine 10 mg tab 1 tab once daily [Active]; carvedilol 25 hb mg Oral tab 1 tab 2 times per day [Active]; gabapentin 200 mg BID Oral [Active]; losartan Oral [Active]; simvastatin 40 mg Oral tab 1 tab once daily [Active]; torsemide oral oral [Active]; - PMHx: 15:37 Bipolar disorder; Diabetes - IDDM; High Cholesterol; Hypertension; Rheumatoid hb Arthritis; sarcoidosis; - PSHx: 15:37 Kidney stents; Tubal ligation; polyps removed; hb - Immunization history:: Adult Immunizations up to date. - Social history:: Smoking status: Patient/guardian denies using tobacco. - Ebola Screening: : No symptoms or risks identified at this time. ROS: 16:17 Eyes: Negative for injury, pain, redness, and discharge, ENT: Negative for injury, jr8 pain, and discharge, Neck: Negative for injury, pain, and swelling, Cardiovascular: Negative for chest pain, palpitations, and edema, Respiratory: Negative for shortness of breath, cough, wheezing, and pleuritic chest pain, Abdomen/GI: Negative for abdominal pain, nausea, vomiting, diarrhea, and constipation, Back: Negative for injury and pain, MS/Extremity: Negative for injury and deformity, Skin: Negative for injury, rash, and discoloration. 16:17 Neuro: Positive for headache, Negative for altered mental status, dizziness, gait disturbance, hearing loss, loss of consciousness, numbness, seizure activity, speech changes, syncope, near syncope, tingling, tinnitus, tremor, visual changes, weakness. Exam: 16:17 Constitutional: This is a well developed, well nourished patient who is awake, alert, jr8 and in no acute distress. Eyes: Pupils equal round and reactive to light, extra-ocular motions intact. Lids and lashes normal. Conjunctiva and sclera are non-icteric and not injected. Cornea within normal limits. Periorbital areas with no swelling, redness, or edema. ENT: Nares patent. No nasal discharge, no septal abnormalities noted. Tympanic membranes are normal and external auditory canals are clear. Oropharynx with no redness, swelling, or masses, exudates, or evidence of obstruction, uvula midline. Mucous membranes moist. Neck: Trachea midline, no thyromegaly or masses palpated, and no cervical lymphadenopathy. Supple, full range of motion without nuchal rigidity, or vertebral point tenderness. No Meningismus. Cardiovascular: Regular rate and rhythm with a normal S1 and S2. No gallops, murmurs, or rubs. Normal PMI, no JVD. No pulse deficits. Respiratory: Lungs have equal breath sounds bilaterally, clear to auscultation and percussion. No rales, rhonchi or wheezes noted. No increased work of breathing, no retractions or nasal flaring. Abdomen/GI: Soft, non-tender, with normal bowel sounds. No distension or tympany. No guarding or rebound. No evidence of tenderness throughout. Back: No spinal tenderness. No costovertebral tenderness. Full range of motion. Skin: Warm, dry with normal turgor. Normal color with no rashes, no lesions, and no evidence of cellulitis. MS/ Extremity: Pulses equal, no cyanosis. Neurovascular intact. Full, normal range of motion. Neuro: Awake and alert, GCS 15, oriented to person, place, time, and situation. Cranial nerves II-XII grossly intact. Motor strength 5/5 in all extremities. Sensory grossly intact. Cerebellar exam normal. Normal gait. Vital Signs: 15:38 BP 155 / 72; Pulse 72; Resp 16; Temp 98.5; Pulse Ox 98% on R/A; Weight 106.59 kg; hb Height 5 ft. 6 in. (167.64 cm); Pain 10/10; 15:38 Body Mass Index 37.93 (106.59 kg, 167.64 cm) hb NIH Stroke Scale Scores: 16:17 NIHSS Score: 0 jr8 MDM: 15:41 Patient medically screened. jr8 16:17 Data reviewed: vital signs, nurses notes, radiologic studies, CT scan, and as a result, jr8 I will discharge patient. Data interpreted: Pulse oximetry: on room air is 98 %. Interpretation: normal. Counseling: I had a detailed discussion with the patient and/or guardian regarding: the historical points, exam findings, and any diagnostic results supporting the discharge/admit diagnosis, radiology results, the need for outpatient follow up, a family practitioner, to return to the emergency department if symptoms worsen or persist or if there are any questions or concerns that arise at home. ED course: Patient without acute CT findings. Patient without pain currently. No acute physical exam findings. Will prescribe medicine as needed for recurrent headache at home. Otherwise to f/u with PCP. If new symptoms were to arise, she feel worse, or it continues to happen, can come back at anytime for reevaluation. Patient good with this plan. 04/19 15:54 Order name: CT Head Brain wo Cont; Complete Time: 16:20 jr8 Administered Medications: No medications were administered Disposition: 04/20 07:14 Co-signature as Attending Physician, Mitchell Carbajal MD I agree with the assessment and omar plan of care. Disposition: 04/19/19 16:20 Discharged to Home. Impression: Headache. - Condition is Stable. - Prescriptions for Fioricet 50- 325-40 mg Oral tablet - take 2 tablet by ORAL route every 4 hours As needed as needed not to exceed 6 tablets per 24hrs; 20 tablet. - Medication Reconciliation Form, Thank You Letter, Antibiotic Education, Prescription Opioid Use form. - Follow up: Private Physician; When: 2 - 3 days; Reason: Recheck today's complaints, Continuance of care, Re-evaluation by your physician. - Problem is new. - Symptoms have improved. NIH Stroke Scale - NIH Stroke Score Date: 04/19/2019 Time: 16:17 Total Score = 0 1a. Level of Consciousness (LOC) - 0(Alert) 1b. Level of Consciousness (LOC) (Year \T\ Age) - 0(Both) 1c. LOC Commands (Open \T\ Closes Eyes/Apprentice Painter Neckties) - 0(Both) 2. Best Gaze (Lateral Gaze Paresis) - 0(Normal) 3. Visual Field Loss - 0(No visual loss) 4. Facial Palsy - 0(Normal) 5a. Left Arm: Motor (10-second hold) - 0(No drift) 5b. Right Arm: Motor (10-second hold) - 0(No drift) 6a. Left Leg: Motor (5-second hold - always test supine) - 0(No drift) 6b. Right Leg: Motor (5-second hold - always test supine) - 0(No drift) 7. Limb Ataxia (finger/nose \T\ heel/knight - test with eyes open) - 0(Absent) 8. Sensory Loss (pinprick arms/legs/face) - 0(Normal) 9. Best Language: Aphasia (description/naming/reading) - 0(No aphasia) 10. Dysarthria (speech clarity - read or repeat words) - 0(Normal) 11. Extinction and Inattention (visual/tactile/auditory/spatial/personal) - 0(No abnormality) Initials: [id number] Signatures: Dispatcher [employer] EDMitchell Guaman MD MD cha Munoz, Edgar, RN RN Aidan Flores PA PA jrJayna Weiss RN RN Corrections: (The following items were deleted from the chart) 04/19 16:41 16:20 04/19/2019 16:20 Discharged to Home. Impression: Headache. Condition is em Stable. Forms are Medication Reconciliation Form, Thank You Letter, Antibiotic Education, Prescription Opioid Use. Follow up: Private Physician; When: 2 - 3 days; Reason: Recheck today's complaints, Continuance of care, Re-evaluation by your physician. Problem is new. Symptoms have improved. jr8
--- NOTE | 2019-04-19 16:21 | ER ---
Nurse's Notes [facility] Name: Izabela Minor Age: 68 yrs Sex: Female : 1950 Arrival Date: 04/19/2019 Time: 15:27 Bed 7 Private MD: Diagnosis: Headache Presentation: 04/19 15:34 Presenting complaint: Right sided headache and dizziness x 2 days. Denies hb N/V/photosensitivity/fever. VAN negative. Transition of care: patient was not received from another setting of care. Onset of symptoms was April 18, 2019. Risk Assessment: Do you want to hurt yourself or someone else? Patient reports no desire to harm self or others. Initial Sepsis Screen: Does the patient meet any 2 criteria? No. Patient's initial sepsis screen is negative. Does the patient have a suspected source of infection? No. Patient's initial sepsis screen is negative. Care prior to arrival: None. 15:34 Method Of Arrival: Ambulatory hb 15:34 Acuity: NIYA 3 hb Historical: - Allergies: 15:37 No Known Drug Allergies; hb - Home Meds: 15:37 Albuterol Inhl [Active]; amlodipine 10 mg tab 1 tab once daily [Active]; carvedilol 25 hb mg Oral tab 1 tab 2 times per day [Active]; gabapentin 200 mg BID Oral [Active]; losartan Oral [Active]; simvastatin 40 mg Oral tab 1 tab once daily [Active]; torsemide oral oral [Active]; - PMHx: 15:37 Bipolar disorder; Diabetes - IDDM; High Cholesterol; Hypertension; Rheumatoid hb Arthritis; sarcoidosis; - PSHx: 15:37 Kidney stents; Tubal ligation; polyps removed; hb - Immunization history:: Adult Immunizations up to date. - Social history:: Smoking status: Patient/guardian denies using tobacco. - Ebola Screening: : No symptoms or risks identified at this time. Screenin:00 Abuse screen: Denies threats or abuse. Nutritional screening: No deficits noted. em Tuberculosis screening: No symptoms or risk factors identified. Fall Risk None identified. Assessment: 16:00 General: Appears in no apparent distress. comfortable, Behavior is calm, cooperative, em Denies fever. Pain: Complains of pain in top of head Pain currently is 0 out of 10 on a pain scale. at worst was 10 out of 10 on a pain scale. Pain began 2-3 days ago. Neuro: Level of Consciousness is awake, alert, obeys commands, Oriented to person, place, time, situation, Appropriate for age Denies weakness dizziness, numbness. Cardiovascular: Capillary refill < 3 seconds Patient's skin is warm and dry. Respiratory: Airway is patent Respiratory effort is even, unlabored, Respiratory pattern is regular, symmetrical. GI: Patient currently denies nausea, vomiting. Derm: Skin is intact, is healthy with good turgor, Skin is pink, warm \T\ dry. Musculoskeletal: Capillary refill < 3 seconds, Range of motion: intact in all extremities. Vital Signs: 15:38 BP 155 / 72; Pulse 72; Resp 16; Temp 98.5; Pulse Ox 98% on R/A; Weight 106.59 kg; hb Height 5 ft. 6 in. (167.64 cm); Pain 10/10; 15:38 Body Mass Index 37.93 (106.59 kg, 167.64 cm) hb NIH Stroke Scale Scores: 16:17 NIHSS Score: 0 [facility] ED Course: 15:27 Patient arrived in ED. as 15:35 Triage completed. hb 15:37 Arm band placed on. hb 15:41 Aidan Rivera PA is PHCP. jr8 15:41 Mitchell Carbajal MD is Attending Physician. jr8 15:46 Bryce Avendano, RN is Primary Nurse. em 16:00 Patient has correct armband on for positive identification. Bed in low position. Call em light in reach. 16:04 CT Head Brain wo Cont In Process Unspecified. EDMS 16:40 No provider procedures requiring assistance completed. Patient did not have IV access em during this emergency room visit. Administered Medications: No medications were administered Outcome: 16:20 Discharge ordered by . jr8 16:40 Discharged to home ambulatory. em 16:40 Condition: good 16:40 Discharge instructions given to patient, Instructed on discharge instructions, follow up and referral plans. medication usage, Demonstrated understanding of instructions, follow-up care, medications, Prescriptions given X 1. 16:41 Patient left the ED. em NIH Stroke Scale - NIH Stroke Score Date: 04/19/2019 Time: 16:17 Total Score = 0 1a. Level of Consciousness (LOC) - 0(Alert) 1b. Level of Consciousness (LOC) (Year \T\ Age) - 0(Both) 1c. LOC Commands (Open \T\ Closes Eyes/Nude Model) - 0(Both) 2. Best Gaze (Lateral Gaze Paresis) - 0(Normal) 3. Visual Field Loss - 0(No visual loss) 4. Facial Palsy - 0(Normal) 5a. Left Arm: Motor (10-second hold) - 0(No drift) 5b. Right Arm: Motor (10-second hold) - 0(No drift) 6a. Left Leg: Motor (5-second hold - always test supine) - 0(No drift) 6b. Right Leg: Motor (5-second hold - always test supine) - 0(No drift) 7. Limb Ataxia (finger/nose \T\ heel/knight - test with eyes open) - 0(Absent) 8. Sensory Loss (pinprick arms/legs/face) - 0(Normal) 9. Best Language: Aphasia (description/naming/reading) - 0(No aphasia) 10. Dysarthria (speech clarity - read or repeat words) - 0(Normal) 11. Extinction and Inattention (visual/tactile/auditory/spatial/personal) - 0(No abnormality) Initials: [email or web address] Signatures: Dispatcher [employer] Bryce Boggs RN RN em Martinez, Amelia as Roszak, Josh, PA PA jr8 Baxter, Heather, RN RN hb Corrections: (The following items were deleted from the chart) 15:39 15:34 Presenting complaint: Right sided headache x 2 days. Denies hb N/V/photosensitivity/dizziness/fever. VAN negative. hb
[2019-04-19 17:11] VITALS: BP 155/72; TEMP 98.5; O2SAT 98
== END 2019-04-19 16:41 | disposition home or self-care (01) ==
LOC: ER 15:26
DX: R51 Headache (principal)
CPT/HCPCS: 70450; 99283

== ENCOUNTER 2019-10-01 17:17 | Emergency (ER) | payer OTHER ==
--- OUTSIDE RECORDS SUMMARY | 2019-10-01 17:22 | XMS REPORT | Continuity of Care Document ---
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 [facility] [place] RIGHT CUBITAL TUNNEL Inactive Condition 04/19/2013 [facility] HYPERCHOLESTEROLEMIA Active Condition 04/19/2013 [facility] BIPOLAR DISORDER Active Condition 04/19/2013 [place] UNSPECIFIED 011 [facility] RIGHT CARPAL TUNNEL Inactive Condition 04/19/2013 [facility] SYNDROME 011 [facility] ARTHRITIS, RHEUMATOID Active Condition 04/19/2013 [facility] HYPERTENSION Active Condition 04/19/2013 [facility] HYPERLIPIDEMIA Inactive Condition 04/19/2013 [facility] DIABETES MELLITUS, Active Condition 04/19/2013 [facility] TYPE I, ADULT ONSET [facility] PAIN IN JOINT, Inactive Condition 04/19/2013 [facility] MULTIPLE SITES [facility] VITAMIN D DEFICIENCY Active Condition 04/19/2013 [facility] SARCOIDOSIS Inactive Condition 04/19/2013 [facility] UNSPECIFIED Inactive Condition 04/19/2013 [facility] INFLAMMATORY Bone & POLYARTHROPATHY Join t TENDINITIS, SHOULDER, Inactive Condition 04/19/2013 [facility] RIGHT [facility] BACK PAIN, LUMBAR Inactive Condition 04/19/2013 [facility] TRIGGER FINGER, LEFT Inactive Condition 04/19/2013 [facility] MIDDLE [facility] CARPAL TUNNEL Inactive Condition 04/19/2013 [place] SYNDROME, BILATERAL [facility] SHOULDER PAIN, RIGHT Active Condition 04/19/2013 [facility] CARPAL TUNNEL Inactive Condition 04/19/2013 [place] SYNDROME, LEFT [facility] TRIGGER FINGER, INDEX Inactive Condition 04/19/2013 [facility] FINGER [facility] UNSPECIFIED Active Condition 04/19/2013 [place] [facility] ARTHROPATHY SITE Bon e & UNSPECIFIED Joint Medications Medication Details Route Status Patient Ordering Order Source Instructions Provider Date LASIX TABS per other Active [facility] GABAPENTIN TABS per other Active Meagan barros M.D. 014 [facility] HYDROXYCHLOROQUINE 1 tb po Active [facility] SULFATE 200 MG TABS qd 014 [facility] VITAMIN D CAPS per other Active Daria grayson M.D. 012 [facility] DEPAKOTE TBEC per other Active [facility] 012 [facility] HYDROXYCHLOROQUINE 1 tab qd Active [place] SULFATE 200 MG TABS 012 [facility] VITAMIN D CAPS per other No Daria grayson M.D. Longer 012 [facility] DEPAKOTE TBEC per other No Gee [facility] Anda Longer 012 [facility] HYDROXYCHLOROQUINE 1 tab qd No [place] SULFATE 200 MG TABS Longer 012 [facility] GLIPIZIDE TABS per other Active Daria grayson M.D. 011 [facility] METFORMIN HCL 500 MG 1 po qd No [place] TABS Longer 011 [facility] BISPRO per other Active Gee [facility] [place] 011 [facility] ZOLOFT TABS per other Active [facility]ee [place] 011 [facility] GLIPIZIDE TABS per other Active Daria grayson M.D. 011 [facility] METFORMIN HCL 500 MG 1 po qd No [place] TABS Longer 011 [facility] BISPRO per other No Gee De Anda Longer 011 [facility] ZOLOFT TABS per other No Gee [place]a Longer 011 [facility] GLIPIZIDE TABS per other Active Daria grayson M.D. 011 [facility] METFORMIN HCL 500 MG 1 po qd No [place] TABS Longer 011 [facility] TRAMADOL-ACETAMINOPH 1 tab q No [place] EN 37.5-325 MG TABS 12 hourly Longer 011 [facility]iso ne & PRN Active Joint TRAMADOL-ACETAMINOPH 1 tab q No [place]inny [place] EN 37.5-325 MG TABS 12 hourly Longer 011 [facility]iso ne & PRN Active Joint TRAMADOL-ACETAMINOPH 1 tab q No Vinny hmond EN 37.5-325 MG TABS 12 hourly Longer 011 Narciso ne & PRN Active Joint TRAMADOL HCL 50 MG 1 po qd No Rich[place] ond TABS Longer 011 [facility] TIZANIDINE HCL 4 MG 1 tab QHS No Ri [place] TABS PRN Longer 011 [facility] HYDROXYCHLOROQUINE 1 tab qd No [place] SULFATE 200 MG TABS Longer 011 [facility] MELOXICAM 15 MG TABS 1 tab qd No Ri chmond w/ food Longer 011 Bone & PRN Active Joint TRAMADOL HCL 50 MG 1 po qd No Rich[place] on[place] TABS Longer 011 [facility] Active [facility] HYDROXYCHLOROQUINE 1 tab qd No [place] SULFATE 200 MG TABS Longer 011 [facility] MELOXICAM 15 MG TABS 1 tab qd No [place] w/ food Longer 011 Bone & PRN Active Joint TIZANIDINE HCL 4 MG 1 tab QHS No Ri [place] TABS PRN Longer 011 [facility] TRAMADOL HCL 50 MG 1 po qd No [place] on[place] TABS Longer 011 [facility] MELOXICAM 15 MG TABS 1 tab qd No Ri [place] w/ food Longer 011 Bone & PRN Active Joint TIZANIDINE HCL 4 MG 1 tab QHS No [place] TABS PRN Longer 011 [facility] [place] D 24407 UNIT 1 tab No [place] CAPS once a Longer 010 Bone & week for Active Joint two [place]AMIN D 76168 UNIT 1 tab No [place] hmond CAPS once a Longer 010 Bone & week for Active Joint two weeks SIMVASTATIN 40 MG 1 po qd No [place] TABS Longer [facility] AMLODIPINE BESYLATE 1 po qd No [place] 10 MG TABS Longer [facility] SIMVASTATIN 40 MG 1 po qd No [place] TABS Longer [facility] Active [facility] AMLODIPINE BESYLATE 1 po qd No [place] 10 MG TABS Longer [facility] Active [facility] SIMVASTATIN 40 MG 1 po qd No [place] TABS Longer [facility] AMLODIPINE BESYLATE 1 po qd No [place] 10 MG TABS Longer [facility] Allergies, Adverse Reactions, Alerts No Known Medication Allergies Immunizations Immunization Date Given Site Status Last Comments Source Updated [facility] [facility] [facility] Results Order Name Results Value Reference Date Interpretation Comments Mireya rce Range Chemistry CRP <1.0 0.0 - 4.9 [facility] mg/L 2012 [facility] ESR 24 0 - 40 2012 [facility] HGB 12.4 11.1 - 15.9 2012 [facility] HCT 37.0 34.0 - 46.6 2012 [facility] PLATELETS 247 140 - 415 mond X10E3/U 2012 [facility] HGB 12.4 11.5 - 15.0 2011 [facility] HCT 37.6 34.0 - 44.0 2011 [facility] H[facility] PLATELETS 240 140 - 415 X10E3/U 2011 [facility] Chemistry CREATININE 0.97 0.57 - 1.00 2011 [facility] Chemistry CREATININE 0.97 0.57 - 1.00 2011 [facility] HGB 12.2 11.5 - 15.0 2010 [facility] HCT 38.0 34.0 - 44.0 2010 [facility] PLATELETS 255 140 - 415 mond X10E3/U 2010 [facility] Chemistry CREATININE 0.97 4.5 - 12.0 2010 [facility] Chemistry CREATININE 0.97 0.57 - 1.00 2010 [facility] Chemistry CREATININE 0.97 0.57 - 1.00 2010 [facility] Pathology Reports No Data Provided for This Section Diagnostic Reports Report Value Date Source Brain wo contrast MRI EXAM: MRI BRAIN WITHOUT CONTRAST 6 [facility] DATE: 01/14/2016 11:47 AM CDT INDICATION: F03.90 Unspecified dementia withou t behavioral disturbance COMPARISON: None. TECHNIQUE: Multiplanar, mutisequence MRI of the brain without contrast. IV contrast: None. FINDINGS: Marked motion artifact degrades image quality. Diffusion weighted images demonstrate no focal s ignal abnormality. There are multiple scattered nonspecific foci confluent areas of T2/FLAIR signal abnormality likely reflecting mild chronic small vessel ischemic change. No acute intracranial hemorr elva detected. The ventricles are normal in size and symmetric. No extra-axial fluid collection identified. Turner-white distinction is preserved. No mass lesion or midline shift detected. The intracranial arterial and venous str uctures demonstrate normal flow voids. Extensive mucosal thickening of the paranasal sinuses. Mild partial opacification of the inferior right mastoid air cells. IMPRESSION: 1. Limited study as above. N o definite acute infarct or intracranial hemorrhage detected. 2. Mild chronic small vessel ischemic change. SL: [id number] Consultation Notes No Data Provided for This Section Discharge Summaries No Data Provided for This Section History and Physicals No Data Provided for This Section Vital Signs Vital Sign Value Date Comments Source Height 68 04/19/2013 [facility] Systolic (mm Hg) 161 04/19/2013 [facility] Diastolic (mm Hg) 70 04/19/2013 [facility] Heart Rate 71 04/19/2013 [facility] Systolic (mm Hg) 158 01/16/2011 [facility] Diastolic (mm Hg) 100 01/16/2011 [facility] Heart Rate 75 01/16/2011 [facility] Systolic (mm Hg) 158 07/11/2010 [facility] Diastolic (mm Hg) 80 07/11/2010 [facility] Heart Rate 75 07/11/2010 [facility] Weight 232 11/28/2009 [facility] Systolic (mm Hg) 137 11/28/2009 [facility] Diastolic (mm Hg) 73 11/28/2009 [facility] Heart Rate 70 11/28/2009 [facility] Height 68 06/07/2009 [facility] Weight 230 06/07/2009 [facility] Systolic (mm Hg) 136 06/07/2009 [facility] Diastolic (mm Hg) 76 06/07/2009 [facility] B [facility] Heart Rate 76 06/07/2009 [facility] Encounters Location Location Encounter Encounter Reason Attending ADM SD Stat Source Details Type Number For Provider Date Date Visit [facility] [id number] [facility] [facility] [place] [facility] Report [id number] Surjit 06/19 06/19 [facility] [place] [facility] Report [id number] Surjit 06/30 06/30 [facility] [place] [facility] [id number] Kristina 08/28 08/28 [place] [facility] Visit 20 Carola [facility] [place] [facility] Report [id number] Kristina 10/28 10/28 [facility] Carola [facility] /2011 [facility] [place] [facility] [id number] Kristina 10/29 10/29 [place] [facility] Visit 40 Carola [place] /2011 [facility] [id number] Kristina 03/02 03/02 [facility] Carola [facility] /2011 [facility] [place] [facility] Report [id number] Kristina 09/01 09/01 [facility] Carola [facility] /2012 [facility] [place] [facility] Report [id number] Surjit 04/19 04/19 [facility] Procedures Procedure Code Date Perfomer Comments Source genitourinary review 131518.9 06/07/2009 frequent [facility], E&M urination & Joint Assessment and Plan No Data Provided for This Section Plan of Care No Data Provided for This Section Social History No Data Provided for This Section Family History No Data Provided for This Section Advance Directives No Data Provided for This Section Functional Status No Data Provided for This Section
--- OUTSIDE RECORDS SUMMARY | 2019-10-01 17:23 | XMS REPORT | Continuity of Care Document ---
:1950 Author Organization [facility] t Address [address] [place] [address] Care Team Providers Name Role Phone Unavailable Unavailable Unavailable Problems Condition Condition Condition Status Onset Resolution Last Treating Co mments Source Name Details Category Date Date Treatment Clinician Date F03.90 - Diagnosis Active 2016-01-14 M emoria UNSPECIFIE 12-26 11:41:00 l D DEMENTIA F03.90 - 00:01: He 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/2015 [facility] [place] HYPERCHOLE Condition Active 2010-042013-04-19 Memoria STEROLEMIA - 11:19:00 l 00:00: [place] HYPERCHOLE 00 STEROLEMIA Active 02/14/2011 Condition 4 [facility] BIPOLAR Condition Active 2010-042013-04-19 Me moria DISORDER - 11:19:00 l UNSPECIFIE BIPOLAR 00:00: Her huffman D DISORDER 00 UNSPECIFIE D Active 02/14/2011 Condition 4 [facility] HYPERLIPID Condition Inactiv 2013-04-19 Memoria EMIA e 11:19:00 l [place] HYPERLIPID EMIA Inactive Condition 4 [facility] PAIN IN Condition Inactiv 2013-04-19 M emoria JOINT, e 11:19:00 l MULTIPLE PAIN IN Lcay nn SITES JOINT, MULTIPLE SITES Inactive Condition 4 [facility] SARCOIDOSI Condition Inactiv 2013-04-19 Memoria S e 11:19:00 l [place] SARCOIDOSI S Inactive Condition 4 [facility] UNSPECIFIE Condition Inactiv 2013-04-19 Memoria D e 11:19:00 l INFLAMMATO Alex n RY UNSPECIFIE POLYARTHRO D TE INFLAMMATO RY POLYARTHRO TE Inactive Condition 4 [facility] TENDINITIS Condition Inactiv 2013-04-19 Memoria , e 11:19:00 l SHOULDER, [place] RIGHT TENDINITIS , SHOULDER, RIGHT Inactive Condition 4 [facility] BACK PAIN, Condition Inactiv 2013-04-19 Memoria LUMBAR e 11:19:00 l BACK [place] PAIN, LUMBAR Inactive Condition 4 [facility] TRIGGER Condition Inactiv 2013-04-19 M emoria FINGER, e 11:19:00 l LEFT TRIGGER [place] MIDDLE FINGER, LEFT MIDDLE Inactive Condition 4 [facility] CARPAL Condition Inactiv 2013-04-19 Me moria TUNNEL e 11:19:00 l SYNDROME, CARPAL Lacy nn BILATERAL TUNNEL SYNDROME, BILATERAL Inactive Condition 4 [facility] ARTHRITIS, Condition Active 2013-04-19 Memoria RHEUMATOID 11:19:00 l [place] ARTHRITIS, RHEUMATOID Active Condition 04/19/2013 [facility] HYPERTENSI Condition Active 2013-04-19 Memoria ON 11:19:00 l [place] HYPERTENSI ON Active Condition 04/19/2013 [facility] DIABETES Condition Active 2013-04-19 M emoria MELLITUS, 11:19:00 l TYPE I, DIABETES Lacy nn ADULT MELLITUS, ONSET TYPE I, ADULT ONSET Active Condition 04/19/2013 [facility] VITAMIN D Condition Active 2013-04-19 Memoria DEFICIENCY 11:19:00 l VITAMIN Bull D DEFICIENCY Active Condition 04/19/2013 [facility] SHOULDER Condition Active 2013-04-19 M emoria PAIN, 11:19:00 l RIGHT SHOULDER Alex n PAIN, RIGHT Active Condition 04/19/2013 [facility] UNSPECIFIE Condition Active 2013-04-19 Memoria D 11:19:00 l ARTHROPATH Alex n Y SITE UNSPECIFIE UNSPECIFIE D D ARTHROPATH Y SITE UNSPECIFIE D Active Condition 04/19/2013 [facility] History of Past Illness Condition Condition Condition Status Onset Resolution Last Treating Co mments Source Name Details Category Date Date Treatment Clinician Date RIGHT Condition Inactiv 2012-0 2013-04-19 2013-04-19 Memoria CUBITAL e 1-13 11:19:00 11:19:00 l TUNNEL RIGHT 00:00: [place] SYNDROME CUBITAL 00 TUNNEL SYNDROME Inactive 04/18/2011 Condition 4 [facility] RIGHT Condition Inactiv 2010-042013-04-19 2013-04-19 Memoria CARPAL e 1-11 11:19:00 11:19:00 l TUNNEL RIGHT 00:00: [place] SYNDROME CARPAL 00 TUNNEL SYNDROME Inactive 02/14/2011 Condition 4 [facility] Allergies, Adverse Reactions, Alerts This patient has no known allergies or adverse reactions. Medications Ordered Filled Start Stop Current Ordering Indication Dosage Frequency Signature Comments Components Source Medication Medication Date Date Medication? Clinician (SIG) Name Name SIMVASTATIN No 1 po qd Mem oria 40 MG TABS 1-14 l 11:19: AMLODIPINE No 1 po qd Devonte bennie BESYLATE 10 1-14 l MG TABS 11:19: LASIX TABS Yes per other Me moria 1-14 M.D. l 00:00: GABAPENTIN Yes per other Me moria TABS 1-14 M.D. l 00:00: HYDROXYCHLO Yes 1 tb po qd Memoria ROQUINE 1-14 l SULFATE 200 00:00: Alex n MG TABS 00 SIMVASTATIN 2011-04 No 1 po qd Mem oria 40 MG TABS 1-27 l 10:42: AMLODIPINE 2011-04 No 1 po qd Devonte bennie BESYLATE 10 1-27 l MG TABS 10:42: SIMVASTATIN No 1 po qd Mem o[facility] 40 MG TABS 7-26 l 08:02: AMLODIPINE No 1 po qd Devonte ebnnie BESYLATE 10 7-26 l MG TABS 08:02: VITAMIN D Yes per other [facility] CAPS 3-16 M.D. l 00:00: DEPAKOTE Yes per other Devonte bennie TBEC 3-16 M.D. l 00:00: HYDROXYCHLO Yes 1 tab qd Me moria ROQUINE 3-16 l SULFATE 200 00:00: Alex n MG TABS 00 VITAMIN D No per other Mem oria CAPS 3-16 M.D. l 00:00: DEPAKOTE No per other Dev[place] bennie TBEC 3-16 M.D. l 00:00: HYDROXYCHLO No 1 tab qd Me moria ROQUINE 3-16 l SULFATE 200 00:00: Alex n MG TABS GLIPIZIDE 2010-04 Yes per other Mem oria TABS 1-11 M.D. l 00:00: METFORMIN 2010-04 No 1 po qd Memor ia HCL 500 MG 1-11 l TABS 00:00: BISPRO 2010-04 Yes per other Memori a 1-11 M.D. l 00:00: ZOLOFT TABS 2010-04 Yes per other M emoria 1-11 M.D. l 00:00: GLIPIZIDE 2010-04 Yes per other Mem oria TABS 1-11 M.D. l 00:00: METFORMIN 2010-04 No 1 po qd Memor ia HCL 500 MG 1-11 l TABS 00:00: BISPRO 2010-04 No per other Memori a 1-11 M.D. l 00:00: ZOLOFT TABS 2010-04 No per other M emoria 1-11 M.D. l 00:00: GLIPIZIDE 2010-04 Yes per other Mem oria TABS 1-11 M.D. l 00:00: METFORMIN 2010-04 No 1 po qd Memor ia HCL 500 MG 1-11 l TABS 00:00: TRAMADOL-AC 2010-04 No 1 tab q 12 Memoria ETAMINOPHEN 0-20 hourly PRN l 37.5-325 MG 00:00: Alex n TABS 00 TRAMADOL-AC 2010-04 No 1 tab q 12 Memoria ETAMINOPHEN 0-20 hourly PRN l 37.5-325 MG 00:00: Alex n TABS 00 TRAMADOL-AC 2010-04 No 1 tab q 12 Memoria ETAMINOPHEN 0-20 hourly PRN l 37.5-325 MG 00:00: Alex n TABS 00 TRAMADOL No 1 po qd Memori a HCL 50 MG 4-07 l TABS 00:00: TIZANIDINE No 1 tab QHS Me moria HCL 4 MG 4-07 PRN l TABS 00:00: Bull 00 HYDROXYCHLO No 1 tab qd Me moria ROQUINE 4-07 l SULFATE 200 00:00: Alex n MG TABS 00 MELOXICAM No 1 tab qd Devonte bennie 15 MG TABS 4-07 w/ food l 00:00: PRN [place] TRAMADOL No 1 po qd Memori a HCL 50 MG 4-07 l TABS 00:00: [place] HYDROXYCHLO No 1 tab qd Me moria ROQUINE 4-07 l SULFATE 200 00:00: Alex n MG TABS MELOXICAM No 1 tab qd Devonte bennie 15 MG TABS 4-07 w/ food l 00:00: PRN [place] TIZANIDINE No 1 tab QHS Me moria HCL 4 MG 4-07 PRN l TABS 00:00: [place] TRAMADOL No 1 po qd Memori a HCL 50 MG 4-07 l TABS 00:00: [place] MELOXICAM No 1 tab qd Devonte bennie 15 MG TABS 4-07 w/ food l 00:00: PRN [place] TIZANIDINE No 1 tab QHS Me moria HCL 4 MG 4-07 PRN l TABS 00:00: [place] 00 VITAMIN D 0 No 1 tab once Me moria 15033 UNIT 3-09 a week for l CAPS 00:00: two weeks [place] VITAMIN D No 1 tab once Me moria 50902 UNIT 3-09 a week for l CAPS 00:00: two weeks Bull 00 Vital Signs Vital Name Observation Time Observation Value Comments Source Height 2013-04-19 16:42:10 [facility] Systolic (mm Hg) 2013-04-19 16:42:10 [facility] Diastolic (mm Hg) 2013-04-19 16:42:10 Mem orial [place] Heart Rate 2013-04-19 16:42:10 [facility] Systolic (mm Hg) 2011-01-16 16:53:41 Dev[place] rial [place] Diastolic (mm Hg) 2011-01-16 16:53:41 Mem orial [place] Heart Rate 2011-01-16 16:53:41 [facility] Systolic (mm Hg) 2010-07-11 13:20:54 [facility] [facility] [place] Diastolic (mm Hg) 2010-07-11 13:20:54 Mem orial [place] Heart Rate 2010-07-11 13:20:54 [facility] Weight 2009-11-28 13:10:48 [facility] Systolic (mm Hg) 2009-11-28 13:10:48 [facility] [facility] Diastolic (mm Hg) 2009-11-28 13:10:48 [facility] Heart Rate 2009-11-28 13:10:48 [facility] [place] Height 2009-06-07 16:58:43 [facility] Weight 2009-06-07 16:58:43 [facility] Systolic (mm Hg) 2009-06-07 16:58:43 [place] rial [place] Diastolic (mm Hg) 2009-06-07 16:58:43 Mem orial [place] Heart Rate 2009-06-07 16:58:43 [facility] Procedures Procedure Date / Time Performed Performing Clinician [facility] e genitourinary review of 2009-06-07 16:58:43 Devonte rial [place] systems, E&M Results Test Description Test Time Test Comments Results Result Comments Source Chemistry 2012-09-02 <1.0 mg/L [facility] 14:30:00 [facility] 2012-09-02 24 [facility] 11:43:00 [facility] 2012-09-02 12.4 [facility] 10:33:00 [place] Hematology 2012-09-02 37.0 [facility] 10:33:00 [facility] 2012-09-02 247 X10E3/UL [facility] 10:33:00 [place] H[facility] 2011-07-02 12.4 [facility] 10:46:00 [place] Hematology 2011-07-02 37.6 [facility] 10:46:00 [facility] 2011-07-02 240 X10E3/UL [facility] 10:46:00 [facility] Chemistry 2011-07-02 0.97 [facility] 06:34:00 [place] Chemistry 2011-07-02 0.97 [facility] 06:34:00 [place] Hematology 2011-03-08 12.2 [facility] 07:25:00 [place] Hematology 2011-03-08 38.0 [facility] 07:25:00 [facility] 2011-03-08 255 X10E3/UL [facility] 07:25:00 [place] Chemistry 2011-03-08 0.97 [facility] 07:04:00 [facility] Chemistry 2011-03-08 0.97 [facility] 07:04:00 [facility] Chemistry 2011-03-08 0.97 [facility] 07:04:00 Bull
--- NOTE | 2019-10-01 20:06 | RAD REPORT ---
EXAM DESCRIPTION: CT - Stone Protocol - 10/01/2019 7:55 pm CLINICAL HISTORY: Flank pain. FLANK PAIN COMPARISON: Abdomen Pelvis W Contrast dated 12/19/2017 TECHNIQUE: Axial images were obtained without oral or IV contrast. Lack of contrast limits solid org an and vascular assessment. The [id number] spans the entirety of the system partially obscuring uppermost abdomen and lung bases. Coronal reformatted images were obtained and reviewed. All CT scans are performed using dose optimization technique as appropriate and may include automated exposure control or mA/KV adjustment according to patient size. FINDINGS: The lower lung carpenter are clear. Imaged portions of the liver and spleen show no suspicious findings on non-contrast imaging. The panc reas and adrenal glands are normal. No pathologic lymphadenopathy in the abdomen or pelvis. No urinary tract stones or obstructive uropathy. 18 mm benign left renal cyst. No bowel obstruction, free air, free fluid or abscess. Normal appendix noted. Moderate lumbosacral degenerative changes. IMPRESSION: No urinary tract stones or obstructive uropathy.
[2019-10-01 20:40] LABS: Absolute Lymphocytes (CBC) 0.7 K/uL (0.7-4.9); Basophils % 0.6 % (0-1.3); Hematocrit 35.1 % (36.0-45.0); Lymphocytes % 31.5 % (15.3-44.8); MPV 8.1 fL (7.6-11.3)
[2019-10-01 20:59] LABS: Albumin 4.1 g/dL (3.4-5.0); Bilirubin Direct 0.2 mg/dL (0-0.2); Bilirubin Total 0.7 mg/dL (0.2-1.0); Protein, Total 8.7 g/dL (6.4-8.2)
[2019-10-01 21:22] LABS: Urine Blood NEGATIVE (NEG); Urine Glucose NEGATIVE (NEG); Urine Protein NEGATIVE (NEG); Urine Specific Gravity 1.015 (1.005-1.030); Urine pH 5.5 (5.0-7.0)
[2019-10-01 21:52] LABS: Urine Bacteria <20 /HPF (<20); Urine Culture Reflex Order NOT NEEDED; Urine RBC <5 /HPF (NONE SEEN)
--- NOTE | 2019-10-01 22:34 | EDPHYS ---
Physician Documentation [facility] Name: Izabela Phillips Age: 68 yrs Sex: Female : 1950 Arrival Date: 10/01/2019 Time: 17:19 Bed 25 Private MD: Josh Driscoll E ED Physician Daphne Griffin HPI: 09/30 19:36 This 68 yrs old Black Female presents to ER via Ambulatory with complaints of Fever, cp Nausea, Side Pain. 19:36 The patient complains of pain in the left flank. cp 19:36 The pain does not radiate. Onset: The symptoms/episode began/occurred suddenly, 45 cp minute(s) ago. Associated signs and symptoms: Pertinent negatives: diarrhea, dysuria, fever, hematuria, pain radiating to the lower extremities, vomiting. Severity of pain: in the emergency department the pain is unchanged despite home interventions. Historical: - Allergies: 17:34 No Known Allergies; ca1 - Home Meds: 17:36 carvedilol 25 mg Oral tab 1 tab 2 times per day [Active]; losartan Oral [Active]; ca1 torsemide Oral [Active]; gabapentin 300 mg oral cap daily [Active]; - PMHx: 17:34 Bipolar disorder; Diabetes - IDDM; High Cholesterol; Hypertension; Rheumatoid ca1 Arthritis; sarcoidosis; - PSHx: 17:34 Kidney stents; Tubal ligation; polyps removed; ca1 - Immunization history:: Adult Immunizations up to date. - Social history:: Smoking status: Patient denies any tobacco usage or history of. ROS: 19:45 : Positive for flank pain, Negative for urinary symptoms, vaginal bleeding, vaginal cp discharge. 19:45 Eyes: Negative for injury, pain, redness, and discharge. cp 19:45 Constitutional: Negative for fever, poor PO intake. 19:45 Neck: Negative for pain with movement, pain at rest, stiffness. 19:45 Cardiovascular: Negative for chest pain, palpitations. 19:45 Respiratory: Negative for cough, shortness of breath, wheezing. 19:45 Abdomen/GI: Negative for nausea, vomiting, and diarrhea, constipation, black/tarry stool, rectal bleeding. 19:45 Skin: Negative for cellulitis, rash. 19:45 Neuro: Negative for altered mental status, gait disturbance, numbness, tingling, weakness. 19:45 All other systems are negative. Exam: 19:35 ECG was reviewed by the Attending Physician. cp 19:50 Constitutional: The patient appears in no acute distress, alert, awake, cp non-diaphoretic, non-toxic, well developed, well nourished, obese. 19:50 Head/Face: Normocephalic, atraumatic. cp 19:50 Eyes: Periorbital structures: appear normal, Conjunctiva: normal, no exudate, no injection, Sclera: no appreciated abnormality, Lids and lashes: appear normal, bilaterally. 19:50 ENT: External ear(s): are unremarkable, Nose: is normal, Mouth: Lips: moist, Oral mucosa: moist, Posterior pharynx: is normal, airway is patent. 19:50 Chest/axilla: Inspection: normal, Palpation: crepitus, is not appreciated, tenderness, is not appreciated. 19:50 Cardiovascular: Rate: normal, Rhythm: regular. 19:50 Respiratory: the patient does not display signs of respiratory distress, Respirations: normal, no use of accessory muscles, labored breathing, is not present, Breath sounds: are clear throughout, no decreased breath sounds. 19:50 Abdomen/GI: Inspection: abdomen appears normal, Bowel sounds: active, all quadrants, Palpation: abdomen is soft and non-tender, in all quadrants. 19:50 Back: pain, that is moderate, of the right lateral mid back, ROM is painful, with all movement, vertebral tenderness, is not appreciated. 19:50 Musculoskeletal/extremity: Exam is negative for decreased range of motion, pain. 19:50 Skin: cellulitis, is not appreciated, no rash present. 19:50 Neuro: Motor: moves all fours, strength is normal, Gait: is steady. Vital Signs: 17:30 BP 151 / 70; Pulse 66; Resp 18 S; Temp 97.8(TE); Pulse Ox 100% on R/A; Weight 107.95 kg ca1 (R); Height 6 ft. 0 in. (182.88 cm) (R); Pain 6/10; 20:00 BP 151 / 70; Pulse 66; Resp 18; Temp 97.8; Pulse Ox 100% ; jv1 21:00 BP 152 / 76; Pulse 69; Resp 18; Temp 97.9; Pulse Ox 100% on R/A; Pain 0/10; jv1 22:00 BP 148 / 78; Pulse 76; Resp 18; Temp 98; Pulse Ox 100% ; Pain 0/10; jv1 22:54 BP 135 / 76; Pulse 88; Resp 18; Temp 98; Pulse Ox 100% ; Pain 0/10; jv1 17:30 Body Mass Index 32.28 (107.95 kg, 182.88 cm) ca1 MDM: 19:33 Patient medically screened. cp 22:32 Data reviewed: vital signs, nurses notes, lab test result(s), radiologic studies, CT cp scan, and as a result, I will discharge patient. Counseling: I had a detailed discussion with the patient and/or guardian regarding: the historical points, exam findings, and any diagnostic results supporting the discharge/admit diagnosis, lab results, radiology results, to return to the emergency department if symptoms worsen or persist or if there are any questions or concerns that arise at home. Response to treatment: the patient's symptoms have mildly improved after treatment. 22:41 ED course: website for [place] prescription monitoring program does not show any active prescriptions for narcotic medicines. 09/30 19:33 Order name: Basic Metabolic Panel; Complete Time: 22:09 cp 09/30 22:09 Interpretation: Normal except: BUN 25; CRE 1.51; GFR 42. cp 09/30 19:33 Order name: CBC with Diff 09/30 22:10 Interpretation: Normal except: WBC 2.3; HGB 11.5; HCT 35.1; MCV 79.9; MCH 26.1; PLT cp 129; NEUT A 1.3. 09/30 19:33 Order name: Hepatic Function; Complete Time: 22:09 cp 09/30 19:33 Order name: Lipase; Complete Time: 22:09 cp 09/30 19:33 Order name: Urine Microscopic Only; Complete Time: 22:09 cp 09/30 21:14 Order name: Urine Dipstick--Ancillary (enter results); Complete Time: 22:09 ds4 09/30 17:43 Order name: EKG; Complete Time: 17:44 ca1 09/30 17:43 Order name: EKG - Nurse/Tech; Complete Time: 17:43 ca1 09/30 19:33 Order name: IV Saline Lock; Complete Time: 20:34 cp 09/30 19:33 Order name: Labs collected and sent; Complete Time: 20:34 09/30 19:33 Order name: CT Stone Protocol; Complete Time: 20:08 09/30 20:08 Interpretation: Report reviewed. 09/30 22:48 Order name: CBC Smear Scan EDFL 09/30 19:33 Order name: Urine Dipstick-Ancillary (obtain specimen); Complete Time: 21:14 cp EC:35 Rate is 65 beats/min. Rhythm is regular. CO interval is normal. QRS interval is normal. cp QT interval is normal. Interpreted by me. Reviewed by me. Administered Medications: 22:34 Drug: traMADol 50 mg {Note: RASS 0.} Route: PO; ea 22:55 Follow up: Response: No adverse reaction; Pain is decreased jv1 22:34 Drug: Flexeril 10 mg Route: PO; ea 22:55 Follow up: Response: Pain is decreased jv1 22:55 Follow up: Response: No adverse reaction; Pain is decreased jv1 Disposition: 10/01 02:28 Co-signature as Attending Physician, Daphne Griffin MD I agree with the assessment ma2 and plan of care. Disposition: 10/01/19 22:33 Discharged to Home. Impression: Strain of muscle and tendon of back wall of thorax - left. - Condition is Stable. - Discharge Instructions: Muscle Strain, Musculoskeletal Pain. - Prescriptions for Cyclobenzaprine 10 mg Oral Tablet - take 1 tablet by ORAL route every 8 hours As needed; 20 tablet. Tramadol 50 mg Oral Tablet - take 1 tablet by ORAL route every 8 hours as needed; 12 tablet. Ibuprofen 800 mg Oral Tablet - take 1 tablet by ORAL route every 8 hours As needed take with food; 30 tablet. - Medication Reconciliation Form, Thank You Letter, Antibiotic Education, Prescription Opioid Use form. - Follow up: Private Physician; When: 2 - 3 days; Reason: Recheck today's complaints. - Problem is new. - Symptoms have improved. Signatures: Dispatcher [employer] EDFL Mitchell House PA PA cp Antunez, Elena RN Daphne Cruz ea, MD MD ma2 Natali Montes RN RN jv1 Polly Francis RN RN ca1 Corrections: (The following items were deleted from the chart) 09/30 22:56 22:33 10/01/2019 22:33 Discharged to Home. Impression: Strain of muscle and tendon of jv1 back wall of thorax - left. Condition is Stable. Forms are Medication Reconciliation Form, Thank You Letter, Antibiotic Education, Prescription Opioid Use. Follow up: Private Physician; When: 2 - 3 days; Reason: Recheck today's complaints. Problem is new. Symptoms have improved. cp
--- NOTE | 2019-10-01 22:34 | ER ---
Nurse's Notes [facility] Name: Izabela Minor Age: 68 yrs Sex: Female : 1950 Arrival Date: 10/01/2019 Time: 17:19 Bed 25 Private MD: Josh Driscoll E Diagnosis: Strain of muscle and tendon of back wall of thorax-left Presentation: 09/30 17:30 Chief complaint: Patient states: L flank pain since 45 minutes ago, reports nausea all ca1 day. Pain is worst when I move a certain way. Denies fever, but I've been sweating off and on since this morning. Denies urinary symptoms. I also have L shoulder pains along with the L side pain. Coronavirus screen: Proceed with normal triage. Patient denies a cough. Patient denies shortness of breath or difficulty breathing. Patient denies measured and/or subjective temperature greater than 100.4F prior to today's visit. Patient denies travel on a cruise ship or to a country the [facility] currently lists as an affected area. Patient denies contact with known and/or suspected case of COVID-19. Ebola Screen: Patient negative for fever greater than or equal to 101.5 degrees Fahrenheit, and additional compatible Ebola Virus Disease symptoms Patient denies exposure to infectious person. Patient denies travel to an Ebola-affected area in the 21 days before illness onset. No symptoms or risks identified at this time. Initial Sepsis Screen: Does the patient meet any 2 criteria? No. Patient's initial sepsis screen is negative. Does the patient have a suspected source of infection? No. Patient's initial sepsis screen is negative. Risk Assessment: Do you want to hurt yourself or someone else? Patient reports no desire to harm self or others. Onset of symptoms was October 01, 2019. 17:30 Method Of Arrival: Ambulatory ca1 17:30 Acuity: NIYA 3 ca1 Historical: - Allergies: 17:34 No Known Allergies; ca1 - Home Meds: 17:36 carvedilol 25 mg Oral tab 1 tab 2 times per day [Active]; losartan Oral [Active]; ca1 torsemide Oral [Active]; gabapentin 300 mg oral cap daily [Active]; - PMHx: 17:34 Bipolar disorder; Diabetes - IDDM; High Cholesterol; Hypertension; Rheumatoid ca1 Arthritis; sarcoidosis; - PSHx: 17:34 Kidney stents; Tubal ligation; polyps removed; ca1 - Immunization history:: Adult Immunizations up to date. - Social history:: Smoking status: Patient denies any tobacco usage or history of. Screenin:16 Abuse screen: Denies threats or abuse. Nutritional screening: No deficits noted. jv1 Tuberculosis screening: No symptoms or risk factors identified. Fall Risk None identified. Assessment: 19:40 General: Appears in no apparent distress. obese, well groomed, Behavior is calm, jv1 cooperative, appropriate for age. Pain: Complains of pain in left flank pain, left shoulder pain Pain does not radiate. Pain currently is 5 out of 10 on a pain scale. Quality of pain is described as aching. Neuro: Level of Consciousness is awake, alert, obeys commands, Oriented to person, place, time, situation, [employer] Manufact[employer] are equal bilaterally Moves all extremities. Cardiovascular: Denies chest pain, Heart tones S1 S2 Capillary refill < 3 seconds. Respiratory: Airway is patent Respiratory effort is even, unlabored, Respiratory pattern is regular, symmetrical. GI: Abdomen is round non-distended, Bowel sounds present X 4 quads. : No signs and/or symptoms were reported regarding the genitourinary system. EENT: No signs and/or symptoms were reported regarding the EENT system. Derm: Skin is intact, is healthy with good turgor. Musculoskeletal: Circulation, motion, and sensation intact. Capillary refill < 3 seconds. 20:40 Reassessment: No changes from previously documented assessment. Patient and/or family jv1 updated on plan of care and expected duration. Pain level reassessed. Patient is alert, oriented x 3, equal unlabored respirations, skin warm/dry/pink. Patient denies pain at this time. Patient states feeling better. Patient states symptoms have improved. 21:40 Reassessment: No changes from previously documented assessment. Patient and/or family jv1 updated on plan of care and expected duration. Pain level reassessed. Patient is alert, oriented x 3, equal unlabored respirations, skin warm/dry/pink. Patient states feeling better. Patient states symptoms have improved. 22:30 Reassessment: No changes from previously documented assessment. Patient and/or family jv1 updated on plan of care and expected duration. Pain level reassessed. Patient is alert, oriented x 3, equal unlabored respirations, skin warm/dry/pink. Patient denies pain at this time. Patient states feeling better. Patient states symptoms have improved. 22:36 Reassessment: Provider in the room with pt. jv1 22:53 Reassessment: pt stated she feels better. discharge instructions given. jv1 Vital Signs: 17:30 BP 151 / 70; Pulse 66; Resp 18 S; Temp 97.8(TE); Pulse Ox 100% on R/A; Weight 107.95 kg ca1 (R); Height 6 ft. 0 in. (182.88 cm) (R); Pain 6/10; 20:00 BP 151 / 70; Pulse 66; Resp 18; Temp 97.8; Pulse Ox 100% ; jv1 21:00 BP 152 / 76; Pulse 69; Resp 18; Temp 97.9; Pulse Ox 100% on R/A; Pain 0/10; jv1 22:00 BP 148 / 78; Pulse 76; Resp 18; Temp 98; Pulse Ox 100% ; Pain 0/10; jv1 22:54 BP 135 / 76; Pulse 88; Resp 18; Temp 98; Pulse Ox 100% ; Pain 0/10; jv1 17:30 Body Mass Index 32.28 (107.95 kg, 182.88 cm) ca1 ED Course: 17:19 Patient arrived in ED. ag5 17:20 Josh Driscoll MD is Private Physician. ag5 17:33 Triage completed. ca1 17:36 Arm band placed on right wrist. ca1 19:22 Mitchell House PA is PHCP. cp 19:22 Daphne Griffin MD is Attending Physician. cp 19:56 CT [facility] Protocol In Process Unspecified. EDMS 20:20 Inserted saline lock: 20 gauge in left wrist, using aseptic technique. Blood collected. jv1 21:14 Urine Microscopic Only Sent. ds4 21:17 Patient has correct armband on for positive identification. Bed in low position. Side jv1 rails up X2. 22:37 No provider procedures requiring assistance completed. jv1 22:53 IV discontinued, intact, bleeding controlled, No redness/swelling at site. Pressure jv1 dressing applied. Administered Medications: 22:34 Drug: traMADol 50 mg {Note: RASS 0.} Route: PO; ea 22:55 Follow up: Response: No adverse reaction; Pain is decreased jv1 22:34 Drug: Flexeril 10 mg Route: PO; ea 22:55 Follow up: Response: Pain is decreased jv1 22:55 Follow up: Response: No adverse reaction; Pain is decreased jv1 Outcome: 22:33 Discharge ordered by . min 22:37 Condition: stable jv1 22:52 Discharged to home ambulatory. jv1 22:52 Discharge instructions given to patient, Instructed on discharge instructions, follow up and referral plans. medication usage, Demonstrated understanding of instructions, follow-up care, medications, Prescriptions given X 3. 22:56 Patient left the ED. jv1 Signatures: Dispatcher [employer] EDMS Scott Haile ds4 Mitchell House PA PA cp Antunez, Elena RN Natali Camp ea, RN RN jv1 Acob, Cheryl RN RN ca1 Sonja Betancourt ag5 Corrections: (The following items were deleted from the chart) 17:37 17:30 Chief complaint: Patient states: L flank pain since 45 minutes ago, reports ca1 nausea all day. Pain is worst when I move a certain way. Denies fever, but I've been sweating off and on since this morning. Denies urinary symptoms ca1
[2019-10-01] MEDS ORDERED: CYCLOBENZAPRINE 10 MG TAB ONE (22:39)
[2019-10-01] MEDS ORDERED: TRAMADOL HCL 50 MG TAB ONE (22:40)
[2019-10-01 22:52] LABS: Blood Morphology Comment NOT SEEN (NOT SEEN); Platelet Estimate ADEQ; Urine White Blood Cell Casts OK
[2019-10-01 23:01] VITALS: O2SAT 100
[2019-10-01 23:06] VITALS: TEMP 98
[2019-10-01 23:07] VITALS: BP 135/76
--- NOTE | 2019-10-02 10:19 | EKG ---
Test Date: 2019-10-01 Test Time: 17:42:44 Jockey Agent: CATRACH[facility] MEASUREMENT RESULTS: Intervals: Rate: 65 RI: 180 QRSD: 78 QT: 376 QTc: 391 [place]: P: 7 RI: 180 QRS: 68 T: 18 INTERPRETIVE STATEMENTS: Normal sinus rhythm Normal ECG Compared to ECG 09/05/2016 02:58:50 No significant changes Electronically Signed On 10-02-19 10:17:52 CDT by Fernando Slater
== END 2019-10-01 22:56 | disposition home or self-care (01) ==
LOC: ER 17:17
DX: S29.012A Strain of muscle and tendon of back wall of thorax, initial encounter (principal); I10 Essential (primary) hypertension; E11.9 Type 2 diabetes mellitus without complications; F31.9 Bipolar disorder, unspecified; E78.00 Pure hypercholesterolemia, unspecified
CPT/HCPCS: 36415; 74176; 76377; 80048; 80076; 81003; 81015; 83690; 85025; 93005; 99284

== ENCOUNTER 2019-11-14 19:24 | Emergency (ER) | payer OTHER ==
--- OUTSIDE RECORDS SUMMARY | 2019-11-14 19:27 | XMS REPORT | Continuity of Care Document ---
:1950 Author Organization [facility] Care Team Providers Name Role Phone [facility] Unavailable Un available Problems Problem Status Onset [...] 011 [facility] VITAMIN D 94835 UNIT 1 tab No [place] CAPS once a Longer 010 Bone & week for Active Joint two weeks VITAMIN D 29448 UNIT 1 tab No [place] CAPS [...] Source Updated polio vaccine #4 [facility]/29[facility]/2011 [facility] Results Order [...] MRI BRAIN WITHOUT CONTRAST 6 [facility] [place] DATE: 01/14/2016 11:47 AM CDT INDICATION: F03.90 [...] Mild chronic small vessel ischemic change. SL: [id number] Consultation Notes No Data Provided for This [...] Location Location Encounter Encounter Reason Attending ADM ND Stat Source Details Type Number For Provider Date Date Visit [facility] [id number] [facility]2011 [facility] [place] [facility] Report [id number] Surjit 06/19 06/19 [facility] Becky [facility] /2011 [facility] [place] Lab Report [id number] Surjit 06/30 06/30 [facility] Becky [facility] [place] [facility] [id number] Kristina 08/28 08/28 [place] [facility] Visit 20 Carola [facility] [place] [facility] Report [id number] Kristina 10/28 10/28 [facility] Carola [place] /2011 [facility] [place] [facility] [id number] Kristina 10/29 10/29 [place] [facility] Visit 40 Carola [place] /2011 [facility] Report [id number] Kristina 03/02 03/02 [facility] Carola [place] /2011 [facility] [place] [facility] Report [id number] Kristina 09/01 09/01 [facility] Carola [facility] /2012 [facility] [place] [facility] Report [id number] Surjit 04/19 04/19 [facility] Becky [facility] Procedures Procedure Code Date Perfomer Comments Source genitourinary review 780880.9 06/07/2009 frequent [facility], [...]
--- OUTSIDE RECORDS SUMMARY | 2019-11-14 19:28 | XMS REPORT | Continuity of Care Document ---
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/2015 [facility] [place] HYPERCHOLE Condition Active 2010-042013-04-19 Memoria STEROLEMIA - 11:19:00 l 00:00: [place] HYPERCHOLE 00 STEROLEMIA Active 02/14/2011 Condition 4 [facility] BIPOLAR Condition Active 2010-042013-04-19 Me moria DISORDER - 11:19:00 l UNSPECIFIE BIPOLAR 00:00: Her huffman D DISORDER 00 UNSPECIFIE D Active 02/14/2011 Condition 4 [facility] HYPERLIPID Condition Inactiv 2013-04-19 Memoria EMIA e 11:19:00 l [place] HYPERLIPID EMIA Inactive Condition 4 [facility] PAIN IN Condition Inactiv 2013-04-19 M emoria JOINT, e 11:19:00 l MULTIPLE PAIN IN Lacy nn SITES JOINT, MULTIPLE SITES Inactive Condition 4 [facility] SARCOIDOSI Condition Inactiv 2013-04-19 Memoria S e 11:19:00 l [place] SARCOIDOSI S Inactive Condition 4 [facility] UNSPECIFIE Condition Inactiv 2013-04-19 Memoria D e 11:19:00 l INFLAMMATO Alex n RY UNSPECIFIE POLYARTHRO D TE INFLAMMATO RY POLYARTHRO TE Inactive Condition 4 [facility] TENDINITIS Condition Inactiv 2013-04-19 Memoria , e 11:19:00 l SHOULDER, [place] RIGHT TENDINITIS , SHOULDER, RIGHT Inactive Condition 4 [facility] BACK PAIN, Condition Inactiv 2013-04-19 Memoria LUMBAR e 11:19:00 l BACK [place] PAIN, LUMBAR Inactive Condition 4 [facility] TRIGGER Condition Inactiv 2013-04-19 M emoria FINGER, e 11:19:00 l LEFT TRIGGER [place] MIDDLE FINGER, LEFT MIDDLE Inactive Condition 4 [facility] CARPAL Condition Inactiv 2013-04-19 Me moria TUNNEL e 11:19:00 l SYNDROME, CARPAL Lacy nn BILATERAL TUNNEL SYNDROME, BILATERAL Inactive Condition 4 [facility] ARTHRITIS, Condition Active 2013-04-19 Mem[facility] RHEUMATOID 11:19:00 l [place] ARTHRITIS, RHEUMATOID Active Condition 04/19/2013 [facility] HYPERTENSI Condition Active 2013-04-19 Memoria ON 11:19:00 l [place] HYPERTENSI ON Active Condition 04/19/2013 [facility] [...] 1-13 11:19:00 11:19:00 l TUNNEL RIGHT 00:00: [place] SYNDROME CUBITAL 00 TUNNEL SYNDROME Inactive 04/18/2011 Condition 4 [facility] RIGHT Condition Inactiv 2010-042013-04-19 2013-04-19 Mem[facility] CARPAL e 1-11 11:19:00 11:19:00 l TUNNEL RIGHT 00:00: [place] SYNDROME CARPAL 00 TUNNEL SYNDROME Inactive 02/14/2011 [...] 08:02: AMLODIPINE No 1 po qd Devonte bennie BESYLATE 10 7-26 l MG TABS 08:02: [...] 4-07 w/ food l 00:00: PRN [place] TRAMADOL No 1 po qd Memori a HCL 50 MG 4-07 l TABS 00:00: [place] HYDROXYCHLO No 1 tab qd Me moria ROQUINE 4-07 l SULFATE 200 00:00: Alex n MG TABS MELOXICAM No 1 tab qd Devonte bennie 15 MG TABS 4-07 w/ food l 00:00: PRN [place] TIZANIDINE No 1 tab QHS Me moria HCL 4 MG 4-07 PRN l TABS 00:00: [place] TRAMADOL No 1 po qd Memori a HCL 50 MG 4-07 l TABS 00:00: [place] MELOXICAM No 1 tab qd Devonte bennie 15 MG TABS 4-07 w/ food l 00:00: PRN [place] TIZANIDINE No 1 tab QHS Me moria HCL 4 MG 4-07 PRN l TABS 00:00: [place] 00 VITAMIN D 0 No 1 tab once Me moria 24733 UNIT 3-09 a week for l CAPS 00:00: two weeks [place] VITAMIN D No 1 tab once Me moria 72286 UNIT 3-09 a week for l CAPS 00:00: two weeks [facility] 00 Vital Signs Vital Name Observation Time Observation Value Comments Source Height 2013-04-19 16:42:10 [facility] [place] Systolic (mm Hg) 2013-04-19 16:42:10 [facility] rial [place] Diastolic (mm Hg) 2013-04-19 16:42:10 [facility] [place] Heart Rate 2013-04-19 16:42:10 [facility] [place] Systolic (mm Hg) 2011-01-16 16:53:41 [place] [facility] [place] Diastolic (mm Hg) 2011-01-16 16:53:41 [facility] [place] Heart Rate 2011-01-16 16:53:41 [facility] [place] Systolic (mm Hg) 2010-07-11 13:20:54 [place] rial [place] Diastolic (mm Hg) 2010-07-11 13:20:54 [facility] [place] Heart Rate 2010-07-11 13:20:54 [facility] Weight 2009-11-28 13:10:48 [facility] [place] Systolic (mm Hg) 2009-11-28 13:10:48 [facility] rial [place] Diastolic (mm Hg) 2009-11-28 13:10:48 [facility] Rate 2009-11-28 13:10:48 [facility] [place] Height 2009-06-07 16:58:43 [facility] [place] Weight 2009-06-07 16:58:43 [facility] [place] Systolic (mm Hg) 2009-06-07 16:58:43 [facility] rial [place] Diastolic (mm Hg) 2009-06-07 16:58:43 [facility] [place] Heart Rate 2009-06-07 16:58:43 [facility] [place] Procedures Procedure Date / Time Performed Performing Clinician [facility] e genitourinary review of 2009-06-07 16:58:43 Devonte rial [facility] systems, E&M Results Test Description Test Time Test Comments Results Result Comments Source Chemistry 2012-09-02 <1.0 mg/L [facility] 14:30:00 [facility] 2012-09-02 24 [facility] 11:43:00 [place] [facility] 2012-09-02 12.4 [facility] 10:33:00 [place] [facility] 2012-09-02 37.0 [facility] 10:33:00 [place] [facility] 2012-09-02 247 X10E3/UL [facility] 10:33:00 [facility] 2011-07-02 12.4 [facility] 10:46:00 [place] [facility] 2011-07-02 37.6 [facility] 10:46:00 [place] [facility] 2011-07-02 240 X10E3/UL [facility] 10:46:00 [facility] 2011-07-02 0.97 [facility] 06:34:00 [facility] 2011-07-02 0.97 [facility] 06:34:00 [facility] 2011-03-08 12.2 [facility] 07:25:00 [facility] 2011-03-08 38.0 [facility] 07:25:00 [facility] 2011-03-08 255 X10E3/UL [facility] 07:25:00 [facility] Chemistry 2011-03-08 0.97 [facility] 07:04:00 [facility] Chemistry 2011-03-08 0.97 [facility] 07:04:00 [facility] Chemistry 2011-03-08 0.97 [facility] 07:04:00 [facility]
[2019-11-14] MEDS ORDERED: ONDANSETRON 4 MG/2 ML VIAL ONE (20:48)
[2019-11-14] MEDS ORDERED: NA CHLORIDE 0.9% 1,000 ML ONE (20:48)
[2019-11-14 21:08] LABS: Absolute Lymphocytes (CBC) 0.8 K/uL (0.7-4.9); Basophils % 0.6 % (0-1.3); Hematocrit 32.6 % (36.0-45.0); Lymphocytes % 32.7 % (15.3-44.8); MPV 7.9 fL (7.6-11.3); RBC Red Blood Cell Count 4.07 M/uL (3.86-4.86)
[2019-11-14 21:48] LABS: ALT/SGPT 25 U/L (12-78); AST/SGOT 26 U/L (15-37); Albumin 3.8 g/dL (3.4-5.0); Alkaline Phosphatase 54 U/L (45-117); BUN Blood Urea Nitrogen 22 mg/dL (7-18); Bicarbonate 26 mmol/L (21-32); Bilirubin Direct 0.2 mg/dL (0-0.2); Bilirubin Total 0.9 mg/dL (0.2-1.0); Glucose Level 101 mg/dL (74-106); Lipase 88 U/L (73-393); NT PRO-BNP 184 pg/mL (<125); Potassium 4.2 mmol/L (3.5-5.1); Protein, Total 8.5 g/dL (6.4-8.2); Sodium Level 137 mmol/L (136-145); Troponin (Emerg Dept Use Only) < 0.02 ng/mL (0.0-0.045)
[2019-11-14 22:30] LABS: Blood Morphology Comment NOT SEEN (NOT SEEN); Platelet Estimate ADEQ; Urine White Blood Cell Casts OK
[2019-11-14] MEDS ORDERED: ACETYLCYST 6,000 MG/30 ML VIAL ONE (22:33)
--- NOTE | 2019-11-15 01:12 | ER ---
Nurse's Notes [facility] Name: Izabela Phillips Age: 69 yrs Sex: Female : 1950 Arrival Date: 11/14/2019 Time: 19:27 Bed 24 Private MD: Diagnosis: Dyspnea;Type 1 diabetes mellitus;Sarcoidosis of lung;Bipolar disorder;Essential (primary) hypertension;Diarrhea, unspecified;Pain in left shoulder-osteoarthritis;Acute upper respiratory infection, unspecified-atypical infection Presentation: 11/13 19:31 Chief complaint: Patient states: SOB for 1 day. Left sided CP for over 1 month since 1 last visit here. Coronavirus screen: Client denies travel out of the [place] in the last 14 days. cough unrelated to allergies, nausea, shortness of breath, Client presents with at least one sign or symptom that may indicate coronavirus-19. Standard/surgical mask placed on the client. Ebola Screen: Patient denies travel to an Ebola-affected area in the 21 days before illness onset. Initial Sepsis Screen: Does the patient meet any 2 criteria? No. Patient's initial sepsis screen is negative. Risk Assessment: Do you want to hurt yourself or someone else? Patient reports no desire to harm self or others. Onset of symptoms was November 14, 2019. 19:31 Method Of Arrival: Ambulatory 1 19:31 Acuity: NIYA 3 ll1 20:00 Initial Sepsis Screen: Does the patient have a suspected source of infection? No. rr5 Patient's initial sepsis screen is negative. Triage Assessment: 20:00 Respiratory: the patient has mild shortness of breath. rr5 20:00 General: Appears in no apparent distress. comfortable, Behavior is calm, cooperative, rr5 appropriate for age. Historical: - Allergies: 19:36 No Known Allergies; ll1 - Home Meds: 21:10 carvedilol 25 mg Oral tab 1 tab 2 times per day [Active]; losartan Oral [Active]; rr5 gabapentin 300 mg Oral cap daily [Active]; torsemide Oral [Active]; - PMHx: 19:31 Bipolar disorder; Diabetes - IDDM; High Cholesterol; Hypertension; Rheumatoid ll1 Arthritis; sarcoidosis; - PSHx: 19:31 Kidney stents; Tubal ligation; polyps removed; ll1 - Immunization history:: Flu vaccine is up to date. - Social history:: Smoking status: Patient denies any tobacco usage or history of. Patient/guardian denies using alcohol, street drugs, tobacco products. - Family history:: not pertinent. Screenin:03 Abuse screen: Denies threats or abuse. Denies injuries from another. Nutritional rr5 screening: No deficits noted. Tuberculosis screening: No symptoms or risk factors identified. Fall Risk IV access (20 points). Total Cleveland Fall Scale indicates No Risk (0-24 pts). Assessment: 20:00 General: Appears in no apparent distress. comfortable, Behavior is calm, cooperative, rr5 appropriate for age. Pain: Complains of pain in chest and left lateral anterior chest and left lateral posterior chest and left shoulder Pain currently is 6 out of 10 on a pain scale. Quality of pain is described as aching, Pain began gradually, 1 hour ago. Is intermittent. Neuro: Level of Consciousness is awake, alert, obeys commands, Oriented to person, place, time, situation. Cardiovascular: Capillary refill < 3 seconds Rhythm is regular. Respiratory: Reports Airway is patent Respiratory effort is even, unlabored, Respiratory pattern is regular, symmetrical, Breath sounds are clear. GI: Reports diarrhea, nausea. : No signs and/or symptoms were reported regarding the genitourinary system. EENT: No signs and/or symptoms were reported regarding the EENT system. Derm: Skin is intact, is healthy with good turgor, Skin temperature is warm. Musculoskeletal: Capillary refill < 3 seconds. 21:09 Reassessment: Patient appears in no apparent distress at this time. Patient is alert, rr5 oriented x 3, equal unlabored respirations, skin warm/dry/pink. 22:00 Reassessment: Patient appears in no apparent distress at this time. Patient is alert, rr5 oriented x 3, equal unlabored respirations, skin warm/dry/pink. Patient states feeling better. Patient states symptoms have improved. 22:31 Reassessment: Patient appears in no apparent distress at this time. Patient is alert, rr5 oriented x 3, equal unlabored respirations, skin warm/dry/pink. back from CT angio. 23:30 Reassessment: Patient appears in no apparent distress at this time. Patient is alert, rr5 oriented x 3, equal unlabored respirations, skin warm/dry/pink. awaiting for results. 11/14 00:30 Reassessment: Patient appears in no apparent distress at this time. Patient is alert, rr5 oriented x 3, equal unlabored respirations, skin warm/dry/pink. 01:30 Reassessment: Patient appears in no apparent distress at this time. No changes from rr5 previously documented assessment. Patient is alert, oriented x 3, equal unlabored respirations, skin warm/dry/pink. 02:00 Reassessment: pt is A\T\O x 3, resp unlabored, IV site intact with fluids infusing, no bb erythema or edema noted, awaiting completion of IV antibiotics prior to discharge. 02:39 Reassessment: Patient appears in no apparent distress at this time. Patient is alert, rr5 oriented x 3, equal unlabored respirations, skin warm/dry/pink. discharge instruction given and explained without complaints made. Vital Signs: 11/13 19:31 Pulse 70; Resp 18; Temp 98.8; Pulse Ox 99% ; Weight 107.95 kg; Height 5 ft. 10 in. ll1 (177.80 cm); Pain 9/10; 19:36 BP 159 / 92; ll1 21:10 BP 151 / 85; Pulse 62; Resp 16; Pulse Ox 99% ; rr5 22:00 BP 143 / 94; Pulse 69; Resp 16; Pulse Ox 99% ; rr5 23:00 BP 156 / 95; Pulse 62; Resp 17; Pulse Ox 100% ; rr5 23:54 BP 148 / 89; Pulse 66; Resp 19; Pulse Ox 98% ; rr5 11/14 02:01 BP 161 / 87; Pulse 73; Resp 16 S; Pulse Ox 100% on R/A; bb 02:39 BP 157 / 85; Pulse 79; Resp 19; Temp 98.2; Pulse Ox 100% ; rr5 11/13 19:31 Body Mass Index 34.15 (107.95 kg, 177.80 cm) ll1 ED Course: 11/13 19:27 Patient arrived in ED. cl3 19:31 Arm band placed on Patient placed in an exam room, on a stretcher. ll1 19:35 Triage completed. ll1 19:48 Mitchell Carbajal MD is Attending Physician. omar 19:52 Eugene Weaver RN is Primary Nurse. rr5 20:00 Patient has correct armband on for positive identification. Placed in gown. Bed in low rr5 position. Call light in reach. Side rails up X2. computer aided design operator on. Pulse ox on. NIBP on. 20:45 Urine collected: clean catch specimen, clear. rr5 20:50 Inserted saline lock: 20 gauge in left antecubital area, using aseptic technique. Blood rr5 collected. 21:00 covid 19. rr5 11/14 01:06 Fernando Jacobsen MD is Referral Physician. omar 02:46 No provider procedures requiring assistance completed. IV discontinued, intact, rr5 bleeding controlled, No redness/swelling at site. Pressure dressing applied. Administered Medications: 11/13 20:55 Drug: NS 0.9% 500 ml Route: IV; Rate: bolus; Site: left antecubital; rr5 21:30 Follow up: Response: No adverse reaction; IV Status: Completed infusion; IV Intake: rr5 500ml 20:55 Drug: Zofran (Ondansetron) 4 mg Route: IVP; Site: left antecubital; rr5 22:00 Follow up: Response: No adverse reaction rr5 21:02 Drug: NS 0.9% 1000 ml Route: IV; Rate: 125 ml/hr; Site: left antecubital; rr5 11/14 02:31 Follow up: Response: No adverse reaction; IV Status: Completed infusion; IV Intake: rr5 700ml 11/13 23:11 Drug: Mucomyst - Acetylcysteine 600 mg Route: PO; rr5 11/14 02:00 Follow up: Response: No adverse reaction bb 01:10 Drug: Rocephin 1 grams Route: IV; Rate: per protocol; Site: left antecubital; rr5 02:00 Follow up: IV Status: Completed infusion rr5 01:20 Dru mg of (Zithromax 500 mg, NS 0.9% 250 ml) Route: IVPB; Infused Over: 1 hrs; rr5 Site: left antecubital; 02:40 Follow up: Response: No adverse reaction; IV Status: Completed infusion; IV Intake: rr5 250ml 02:00 Drug: Mucomyst - Acetylcysteine 600 mg Route: PO; bb 02:40 Follow up: Response: No adverse reaction rr5 Intake: 11/13 21:30 IV: 500ml; Total: 500ml. rr5 11/14 02:31 IV: 700ml; Total: 1200ml. rr5 02:40 IV: 250ml; Total: 1450ml. rr5 Outcome: 01:11 Discharge ordered by . omar 02:46 Discharged to home ambulatory. rr5 02:46 Condition: stable 02:46 Discharge instructions given to patient, Instructed on discharge instructions, follow up and referral plans. medication usage, Demonstrated understanding of instructions, follow-up care, medications, Prescriptions given X 3. 02:52 Patient left the ED. rr5 Addendum: 11/16/2019 19:14 Addendum: COVID-19 Result: Negative result given to RN to notify pt. Notified pt of i w negative COVID 19 swab results. Pt advised that even with a negative test result they should remain in isolation until symptom free for 3 days without medication. Pt also advised to return to the ED for worsening symptoms. Signatures: Mitchell Carbajal MD MD cha Ballard, Brenda RN RN Chitra Calix RN RN iw Roque, Raymond, RN RN rr5 Gregorio Rodríguez3 Aura Rodríguez RN RN ll1
--- NOTE | 2019-11-15 01:12 | EDPHYS ---
Physician Documentation [facility] Name: Izabela Phillips Age: 69 yrs Sex: Female : 1950 Arrival Date: 11/14/2019 Time: 19:27 Bed 24 Private MD: GAUTAM Physician Mitchell Carbajal HPI: 11/13 20:22 This 69 yrs old Black Female presents to ER via Ambulatory with complaints of Breathing omar Difficulty. 20:22 The patient has shortness of breath at rest, with light activity. Onset: The omar symptoms/episode began/occurred 5 day(s) ago. Duration: The symptoms are intermittent. The patient's shortness of breath is aggravated by coughing, light activity, is alleviated by rest. Associated signs and symptoms: Pertinent positives: chest pain, non-productive cough. Severity of symptoms: At their worst the symptoms were mild in the emergency department the symptoms are unchanged. The patient has experienced similar episodes in the past, several times. 20:26 The patient or guardian complains of decreased range of motion, pain. left shoulder. omar Context: The problem was sustained at an unknown site, resulted from an unknown reason, The patient experiences decreased range of motion, when rotates arm. Modifying factors: the symptoms are alleviated by remaining still, The symptoms are aggravated by movement. Associated signs and symptoms: The patient has no apparent associated signs or symptoms. The patient or guardian reports chest pain that is located primarily in the anterior chest wall, left, left lateral posterior chest and left lateral anterior chest. Historical: - Allergies: 19:36 No Known Allergies; ll1 - Home Meds: 21:10 carvedilol 25 mg Oral tab 1 tab 2 times per day [Active]; losartan Oral [Active]; rr5 gabapentin 300 mg Oral cap daily [Active]; torsemide Oral [Active]; - PMHx: 19:31 Bipolar disorder; Diabetes - IDDM; High Cholesterol; Hypertension; Rheumatoid ll1 Arthritis; sarcoidosis; - PSHx: 19:31 Kidney stents; Tubal ligation; polyps removed; ll1 - Immunization history:: Flu vaccine is up to date. - Social history:: Smoking status: Patient denies any tobacco usage or history of. Patient/guardian denies using alcohol, street drugs, tobacco products. - Family history:: not pertinent. ROS: 20:26 Constitutional: Negative for fever, chills, and weight loss, Eyes: Negative for injury, omar pain, redness, and discharge, ENT: Negative for injury, pain, and discharge, Neck: Negative for injury, pain, and swelling, Cardiovascular: Negative for chest pain, palpitations, and edema, Abdomen/GI: Negative for abdominal pain, nausea, vomiting, diarrhea, and constipation, Back: Negative for injury and pain, : Negative for injury, bleeding, discharge, and swelling, Skin: Negative for injury, rash, and discoloration, Neuro: Negative for headache, weakness, numbness, tingling, and seizure, Psych: Negative for depression, anxiety, suicide ideation, homicidal ideation, and hallucinations, Allergy/Immunology: Negative for hives, rash, and allergies, Endocrine: Negative for neck swelling, polydipsia, polyuria, polyphagia, and marked weight changes, Hematologic/Lymphatic: Negative for swollen nodes, abnormal bleeding, and unusual bruising. 20:26 Respiratory: Positive for cough. Exam: 20:26 Constitutional: This is a well developed, well nourished patient who is awake, alert, omar and in no acute distress. Head/Face: Normocephalic, atraumatic. Eyes: Pupils equal round and reactive to light, extra-ocular motions intact. Lids and lashes normal. Conjunctiva and sclera are non-icteric and not injected. Cornea within normal limits. Periorbital areas with no swelling, redness, or edema. ENT: Nares patent. No nasal discharge, no septal abnormalities noted. Tympanic membranes are normal and external auditory canals are clear. Oropharynx with no redness, swelling, or masses, exudates, or evidence of obstruction, uvula midline. Mucous membranes moist. Neck: Trachea midline, no thyromegaly or masses palpated, and no cervical lymphadenopathy. Supple, full range of motion without nuchal rigidity, or vertebral point tenderness. No Meningismus. Cardiovascular: Regular rate and rhythm with a normal S1 and S2. No gallops, murmurs, or rubs. Normal PMI, no JVD. No pulse deficits. Respiratory: Lungs have equal breath sounds bilaterally, clear to auscultation and percussion. No rales, rhonchi or wheezes noted. No increased work of breathing, no retractions or nasal flaring. Abdomen/GI: Soft, non-tender, with normal bowel sounds. No distension or tympany. No guarding or rebound. No evidence of tenderness throughout. Back: No spinal tenderness. No costovertebral tenderness. Full range of motion. Skin: Warm, dry with normal turgor. Normal color with no rashes, no lesions, and no evidence of cellulitis. Neuro: Awake and alert, GCS 15, oriented to person, place, time, and situation. Cranial nerves II-XII grossly intact. Motor strength 5/5 in all extremities. Sensory grossly intact. Cerebellar exam normal. Normal gait. Psych: Awake, alert, with orientation to person, place and time. Behavior, mood, and affect are within normal limits. 20:26 Chest/axilla: Inspection: normal, Palpation: tenderness, that is mild, of the left lateral posterior chest and left lateral anterior chest, Axilla: are normal, Breasts: are normal. 20:26 Cardiovascular: Rate: normal, Rhythm: regular, Pulses: no pulse deficits are appreciated, Heart sounds: normal, Edema: is not appreciated, JVD: is not appreciated. 20:29 Musculoskeletal/extremity: DVT Exam: No signs of deep vein thrombosis. no pain, no omar swelling, no tenderness, negative Homans' sign noted on exam, no appreciated bluish discoloration, no erythema, no increased warmth. Vital Signs: 19:31 Pulse 70; Resp 18; Temp 98.8; Pulse Ox 99% ; Weight 107.95 kg; Height 5 ft. 10 in. ll1 (177.80 cm); Pain 9/10; 19:36 BP 159 / 92; ll1 21:10 BP 151 / 85; Pulse 62; Resp 16; Pulse Ox 99% ; rr5 22:00 BP 143 / 94; Pulse 69; Resp 16; Pulse Ox 99% ; rr5 23:00 BP 156 / 95; Pulse 62; Resp 17; Pulse Ox 100% ; rr5 23:54 BP 148 / 89; Pulse 66; Resp 19; Pulse Ox 98% ; rr5 11/14 02:01 BP 161 / 87; Pulse 73; Resp 16 S; Pulse Ox 100% on R/A; bb 02:39 BP 157 / 85; Pulse 79; Resp 19; Temp 98.2; Pulse Ox 100% ; rr5 11/13 19:31 Body Mass Index 34.15 (107.95 kg, 177.80 cm) ll1 MDM: 11/13 19:[address] [facility] 20:28 Data reviewed: vital signs, nurses notes, lab test result(s), EKG, radiologic studies, omar CT scan, plain films. 20:29 Differential diagnosis: tendonitis, CHF exacerbation, Chronic Obstructive Pulmonary omar Disease abnormal EKG, coronary artery disease chest wall pain, peptic ulcer disease, pneumonia, pneumothorax, pulmonary embolus, thoracic aortic disection, pneumonia, Pneumothorax pulmonary edema, reactive airway disease, Unstable Angina. Antibiotic administration: Not indicated. HEART Score: ECG: Normal (0), Age: > or = 65 years (2), Risk Factors: > or = 3 Risk factors for atherosclerotic disease (2), [Hypercholesterolemia] [Hypertension] [DM] [+ Family HX] [Obesity]. The patient was given aspirin in the Emergency Department. The patient's Wells Deep Vein Thrombosis Score was calculated as follows: Total Score: 0. This patient was found to be at low risk for a deep vein thrombosis by using the Well's assessment criteria Total Score: 0-2 Pts- Low Risk. The patient's pulmonary embolism risk score was calculated as follows: Total Score: 0-2 points. This patient was found to be at low risk for a pulmonary embolism by using the Well's assessment criteria Total Score: 0-2 points. This patient was found to be at low risk for a pulmonary embolism by using the Well's assessment criteria. RAMIRO Risk Score: 1 - patient's age is greater or equal to 65 years, 1 - Three or more CAD risk factors, [Family Hx], [HTN], [Elevated Cholesterol], [DM]. Immunization status: Pneumococcal vaccine: Influenza vaccine: Data interpreted: security monitor: rate is 70 beats/min, rhythm is regular, Pulse oximetry: on room air is 99 %. Test interpretation: by ED physician or midlevel provider: ECG, plain radiologic studies. Counseling: I had a detailed discussion with the patient and/or guardian regarding: the historical points, exam findings, and any diagnostic results supporting the discharge/admit diagnosis, lab results, radiology results, the need for outpatient follow up. 11/13 20:22 Order name: Basic Metabolic Panel [facility] 11/13 20:22 Order name: CBC with Diff [facility] 11/13 20:22 Order name: LFT's [facility] 11/13 20:22 Order name: Magnesium [facility] 11/13 20:22 Order name: NT PRO-BNP [facility] 11/13 20:22 Order name: Troponin (emerg Dept Use Only) [facility] 11/13 20:22 Order name: Lipase [facility] 11/13 20:46 Order name: Stool Culture [facility] 11/13 20:46 Order name: Fecal Leukocyte Stain [facility] 11/13 20:46 Order name: COVID-[address] [facility] 11/13 20:47 Order name: Urine Dipstick--Ancillary (enter results) [facility] 11/13 21:13 Order name: CBC with Automated Diff; Complete Time: 23:30 EDNM 11/13 21:48 Order name: Basic Metabolic Panel; Complete Time: 22:02 EDNM 11/13 21:48 Order name: Liver (Hepatic) Function; Complete Time: 22:02 EDNM 11/13 20:22 Order name: XRAY Chest (1 view) [facility] 11/13 20:22 Order name: Shoulder Left (2 View) XRAY [facility] 11/13 20:22 Order name: CT Aorta for Dissection [facility] 11/13 21:48 Order name: Troponin (Emerg Dept Use Only); Complete Time: 22:02 EDNM 11/13 21:49 Order name: NT PRO-BNP; Complete Time: 22:02 [facility] 11/13 21:49 Order name: Magnesium; Complete Time: 22:02 EDNM 11/13 21:49 Order name: Lipase; Complete Time: 22:02 [facility] 11/13 22:30 Order name: CBC Smear Scan; Complete Time: 23:30 [facility] 11/14 01:04 Order name: Blood Culture Adult (2) [facility] 11/13 20:22 Order name: EKG; Complete Time: 10:[address] [facility] 11/13 20:22 Order name: Cardiac monitoring; Complete Time: 20:[address] [facility] 11/13 20:22 Order name: EKG - Nurse/Tech; Complete Time: 20:[address] [facility] 11/13 20:22 Order name: IV Saline Lock; Complete Time: 21:[address] [facility] 11/13 20:22 Order name: Labs collected and sent; Complete Time: 00:[address] [facility] 11/13 20:22 Order name: O2 Per Protocol; Complete Time: 20:[address] [facility] 11/13 20:22 Order name: O2 Sat Monitoring; Complete Time: 20:[address] [facility] 11/13 20:22 Order name: Urine Dipstick-Ancillary (obtain specimen); Complete Time: 21:03 omar Administered Medications: 20:55 Drug: NS 0.9% 500 ml Route: IV; Rate: bolus; Site: left antecubital; rr5 21:30 Follow up: Response: No adverse reaction; IV Status: Completed infusion; IV Intake: rr5 500ml 20:55 Drug: Zofran (Ondansetron) 4 mg Route: IVP; Site: left antecubital; rr5 22:00 Follow up: Response: No adverse reaction rr5 21:02 Drug: NS 0.9% 1000 ml Route: IV; Rate: 125 ml/hr; Site: left antecubital; rr5 11/14 02:31 Follow up: Response: No adverse reaction; IV Status: Completed infusion; IV Intake: rr5 700ml 11/13 23:11 Drug: Mucomyst - Acetylcysteine 600 mg Route: PO; rr5 11/14 02:00 Follow up: Response: No adverse reaction bb 01:10 Drug: Rocephin 1 grams Route: IV; Rate: per protocol; Site: left antecubital; rr5 02:00 Follow up: IV Status: Completed infusion rr5 01:20 Dru mg of (Zithromax 500 mg, NS 0.9% 250 ml) Route: IVPB; Infused Over: 1 hrs; rr5 Site: left antecubital; 02:40 Follow up: Response: No adverse reaction; IV Status: Completed infusion; IV Intake: rr5 250ml 02:00 Drug: Mucomyst - Acetylcysteine 600 mg Route: PO; bb 02:40 Follow up: Response: No adverse reaction rr5 Disposition: 11/15/19 01:11 Discharged to Home. Impression: Dyspnea, Type 1 diabetes mellitus, Sarcoidosis of lung, Bipolar disorder, Essential (primary) hypertension, Diarrhea, unspecified, Pain in left shoulder - osteoarthritis, Acute upper respiratory infection, unspecified - atypical infection. - Condition is Stable. - Discharge Instructions: Arthritis, Food Choices to Help Relieve Diarrhea, Adult, Type 1 Diabetes Mellitus, Diagnosis, Adult, Diarrhea, Adult, Hypertension, Bipolar Disorder, Musculoskeletal Pain, Upper Respiratory Infection, Adult, Cool Mist Vaporizer, Cryotherapy, Anta-mg-Phsr, Sarcoidosis, Shoulder Pain, Pijl-[id number], Hypertension, Jutz-dt-[id number], Diarrhea, Adult, Yhla-mf-[id number], How to Take Your Blood Pressure, Ocgi-be-Micf, Aspirin and Your Heart, Cough, Adult, Managing Your Hypertension. - Prescriptions for Medrol (Jacob) 4 mg Oral Tablets, Dose Pack - take 1 tablet by ORAL route as directed - follow package instructions; 1 packet. Albuterol Sulfate 90 mcg/actuation - inhale 1-2 puff by INHALATION route every 4-6 hours; 1 Inhaler. Zithromax 500 mg Oral Tablet - take 1 tablet by ORAL route once daily for 5 days; 5 tablet. - Medication Reconciliation Form, Thank You Letter, Antibiotic Education, Prescription Opioid Use form. - Follow up: Private Physician; When: 2 - 3 days; Reason: Recheck today's complaints, Continuance of care, Re-evaluation by your physician. Follow up: Fernando Jacobsen MD; When: 2 - 3 days; Reason: Recheck today's complaints, Re-evaluation by your physician. - Problem is new. - Symptoms have improved. Signatures: Dispatcher [employer] EDNM Mitchell Carbajal MD MD cha Ballard, Brenda RN RN Eugene Guo RN RN rr5 Aura Rodríguez RN RN ll1 Corrections: (The following items were deleted from the chart) 02:52 01:11 11/15/2019 01:11 Discharged to Home. Impression: Dyspnea; Type 1 diabetes rr5 mellitus; Sarcoidosis of lung; Bipolar disorder; Essential (primary) hypertension; Diarrhea, unspecified; Pain in left shoulder - osteoarthritis; Acute upper respiratory infection, unspecified - atypical infection. Condition is Stable. Forms are Medication Reconciliation Form, Thank You Letter, Antibiotic Education, Prescription Opioid Use. Follow up: Private Physician; When: 2 - 3 days; Reason: Recheck today's complaints, Continuance of care, Re-evaluation by your physician. Follow up: Fernando Jacobsen; When: 2 - 3 days; Reason: Recheck today's complaints, Re-evaluation by your physician. Problem is new. Symptoms have improved. omar
[2019-11-15] MEDS ORDERED: NA CHLORIDE 0.9% 250 ML ONE (01:24)
[2019-11-15] MEDS ORDERED: CEFTRIAXONE/SWI 1gm 1 GM/10 ML SYR ONE (01:24)
[2019-11-15] MEDS ORDERED: AZITHROMYCIN 500 MG INJ IVPB ONE (01:24)
[2019-11-15] MEDS ORDERED: ACETYLCYST 6,000 MG/30 ML VIAL ONE (02:01)
[2019-11-15 03:21] VITALS: O2SAT 100
[2019-11-15 03:22] VITALS: BP 157/85; TEMP 98.2
--- NOTE | 2019-11-15 08:05 | RAD REPORT ---
EXAM DESCRIPTION: RAD - Chest Single View - 11/14/2019 10:19 pm CLINICAL HISTORY: breathing difficulty, shortness of breath COMPARISON: Due to technical malfunctions, not all images were available. September 2016 study was compar ed TECHNIQUE: AP portable chest image was obtained 11/14/2019 10:19 pm . FINDINGS: No focal lung parenchymal process. No focal mass or consolidation. Lung markings are accen tuated by low lung volumes and prominent overlying soft tissues. Heart and vasculature are normal. No measurable pleural effusion and no pneumothorax. No acute bony abnormality seen. No acute aortic fin dings suspected. IMPRESSION: Limited portable study without acute cardiopulmonary finding.
--- NOTE | 2019-11-15 08:05 | RAD REPORT ---
EXAM DESCRIPTION: RAD - Shoulder Left 2 View - 11/14/2019 10:54 pm CLINICAL HISTORY: breathing difficulty, left-sided chest and shoulder pain COMPARISON: No comparisons TECHNIQUE: Internal and external rotation views of the left shoulder were obtained. FINDINGS: There is no fracture or dislocation. AC joint degenerative changes are present. There is s purring along the superior and inferior margins of the AC joint with capsular hypertrophy seen. Degen erative changes present along the undersurface of the acromion and along the superolateral humeral he ad. No acute or destructive bone process. IMPRESSION: Moderately prominent left shoulder degenerative change with no acute finding.
[2019-11-15 11:03] LABS: Urine Blood NEGATIVE (NEG); Urine Glucose NEGATIVE (NEG); Urine Protein TRACE (NEG); Urine Specific Gravity 1.025 (1.005-1.030)
--- NOTE | 2019-11-15 14:01 | RAD REPORT ---
EXAM DESCRIPTION: CT - Angio Aorta For Dissection - 11/15/2019 1:33 am ADDENDUM #1 Mild scattered nonspecific tree-in-bud opacities throughout the lungs. Findings may be secondary to m ild infectious versus inflammatory process. Electronically signed by: Antoinette Nina MD 11/14/2019 11:52 PM CDT End of Addendum EXAM DESCRIPTION: CT Angiography Chest, Abdomen and Pelvis With Intravenous Contrast CLINICAL HISTORY: The patient is 69 years old and is Female; breathing difficulty TECHNIQUE: Axial computed tomographic angiography images of the chest, abdomen and pelvis with intra venous contrast. Sagittal and coronal reformatted images were created and reviewed. This CT exam was performed using one or more of the following dose reduction techniques: automated exposure cont rol, adjustment of the mA and/or kV according to patient size, and/or use of iterative reconstruction technique. MIP reconstructed images were created and reviewed. COMPARISON: No relevant prior studies available. FINDINGS: VASCULATURE: AORTA: Atherosclerosis of the vasculature is present. No aortic aneurysm. No dissection. PULMONARY ARTERIES: There are no obvious filling defects identified within the pulmonary arteries to suggest pulmonary embolism. GREAT VESSELS OF AORTIC ARCH: No acute findings. No dissection. No arterial occlusion or sig nificant stenosis. CELIAC TRUNK AND MESENTERIC ARTERIES: No acute findings. No occlusion or significant stenosis. RENAL ARTERIES: No acute findings. No occlusion or significant stenosis. ILIAC ARTERIES: No acute findings. No occlusion or significant stenosis. CHEST: LUNGS: Few scattered nonspecific nodular tree-in-bud opacities are noted throughout the lungs. PLEURAL SPACE: Unremarkable. No significant effusion. No pneumothorax. HEART: Unremarkable. No cardiomegaly. No significant pericardial effusion. ABDOMEN: LIVER: The liver is enlarged. Multiple hepatic granuloma are present. GALLBLADDER AND BILE DUCTS: Unremarkable. No calcified stones. No ductal dilation. PANCREAS: Unremarkable. No ductal dilation. No mass. SPLEEN: The spleen is enlarged. Multiple splenic granuloma are present. ADRENALS: Unremarkable. No mass. KIDNEYS AND URETERS: A 2.3 cm left renal cyst is present. The kidneys enhance symmetrically. Ther e is no hydronephrosis or hydroureter of either kidney. STOMACH AND BOWEL: The stomach is decompressed. The small bowel is normal in caliber. Stool is p resent throughout colon. Scattered colonic diverticula are noted without surrounding inflammation. Th ere is no evidence of bowel obstruction. No mucosal thickening. PELVIS: APPENDIX: No findings to suggest acute appendicitis. BLADDER: The bladder is moderately distended. REPRODUCTIVE: Unremarkable as visualized. CHEST, ABDOMEN and PELVIS: INTRAPERITONEAL SPACE: Unremarkable. No significant fluid collection. No free air. BONES/JOINTS: Multilevel degenerative change of the spine is present. No acute fracture. No dislocation. SOFT TISSUES: A small fat-containing umbilical hernia is present. LYMPH NODES: Several calcified right hilar lymph nodes are present. IMPRESSION: 1. No evidence of aortic aneurysm or dissection. 2. No evidence of pulmonary embolism. 3. Hepatosplenomegaly. 4. Colonic diverticulosis. Electronically signed by: Antoinette Nina MD 11/14/2019 11:10 PM CDT Due to temporary technical issues with the PACS/Fluency reporting system, reports are being signed by the in house radiologist without review as a courtesy to ensure prompt reporting. The interpreting r adiologist is fully responsible for the content of the report.
--- NOTE | 2019-11-16 12:38 | EKG ---
Test Date: 2019-11-14 Test Time: 20:08:46 Auto Service Writer: RR MEASUREMENT RESULTS: Intervals: Rate: 63 KS: 200 QRSD: 84 QT: 386 QTc: 395 [place]: P: 44 KS: 200 QRS: 31 T: 45 INTERPRETIVE STATEMENTS: Normal sinus rhythm Normal ECG Compared to ECG 10/01/2019 17:42:44 No significant changes Electronically Signed On 11-16-19 12:35:39 CDT by Fernando Slater
== END 2019-11-15 02:52 | disposition home or self-care (01) ==
LOC: ER 19:24
DX: J06.9 Acute upper respiratory infection, unspecified (principal); Z20.828 Contact with and (suspected) exposure to other viral communicable diseases; R06.00 Dyspnea, unspecified; D86.0 Sarcoidosis of lung; E10.9 Type 1 diabetes mellitus without complications; I10 Essential (primary) hypertension; R19.7 Diarrhea, unspecified; F31.9 Bipolar disorder, unspecified; M19.012 Primary osteoarthritis, left shoulder; E78.00 Pure hypercholesterolemia, unspecified
CPT/HCPCS: 36415; 71045; 71275; 74175; 80048; 80076; 81003; 83690; 83735; 83880; 84484; 85025; 87040; 93005; 96361; 96365; 96375; 99284; J0456; J0696; J2405; J7030; J7050; Q9967; U0002

== ENCOUNTER 2020-08-02 16:46 | Emergency (ER) | payer OTHER ==
--- OUTSIDE RECORDS SUMMARY | 2020-08-02 16:49 | XMS REPORT | Continuity of Care Document ---
:1950 Author Organization [facility] t Address [address] [place] [address] Care Team Providers Name Role Phone Zoe WEINBERG, Kayleen Herrera Attending Clinician Vinnie Soliman DO Attending Clinician Paulette Laura DPM Attending Clinician Denisse WEINBERG, Navjot Walden Attending Clinician [phone] Problems Condition Condition Condition Status Onset Resolution Last Treating Co mments Source Name Details Category Date Date Treatment Clinician Date F0390 - Diagnosis Active 2016-01-14 M emoria UNSPECIFIE 12-26 11:41:00 l D DEMENTIA F03.90 - 00:01: [place] 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/2015 [facility] [place] HYPERCHOLE Condition Active 2010-042013-04-19 [facility] STEROLEMIA 04-16 11:19:00 l 00:00: [place] HYPERCHOLE 00 STEROLEMIA Active 02/14/2011 Condition 4 [facility] BIPOLAR Condition Active 2010-042013-04-19 Me moria DISORDER 04-16 11:19:00 l UNSPECIFIE BIPOLAR 00:00: Her [place] D DISORDER 00 UNSPECIFIE D Active 02/14/2011 Condition 4 [facility] HYPERLIPID Condition Inactiv 2013-04-19 Mem[facility] EMIA e 11:19:00 l [place] HYPERLIPID EMIA Inactive Condition 4 [facility] PAIN IN Condition Inactiv 2013-04-19 M emoria JOINT, e 11:19:00 l MULTIPLE PAIN IN Lacy nn SITES JOINT, MULTIPLE SITES Inactive Condition 4 [facility] SARCOIDOSI Condition Inactiv 2013-04-19 Mem[facility] S e 11:19:00 l [place] SARCOIDOSI S Inactive Condition 4 [facility] UNSPECIFIE Condition Inactiv 2013-04-19 Memoria D e 11:19:00 l INFLAMMATO Alex n RY UNSPECIFIE POLYARTHRO D TE INFLAMMATO RY POLYARTHRO TE Inactive Condition 4 [facility] TENDINITIS Condition Inactiv 2013-04-19 Mem[facility] , e 11:19:00 l SHOULDER, [place] RIGHT TENDINITIS , SHOULDER, RIGHT Inactive Condition 4 [facility] BACK PAIN, Condition Inactiv 2013-04-19 Mem[facility] LUMBAR e 11:19:00 l BACK [place] PAIN, LUMBAR Inactive Condition 4 [facility] TRIGGER Condition Inactiv 2013-04-19 M emoria FINGER, e 11:19:00 l LEFT TRIGGER [place] MIDDLE FINGER, LEFT MIDDLE Inactive Condition 4 [facility] CARPAL Condition Inactiv 2013-04-19 Me moria TUNNEL e 11:19:00 l SYNDROME, CARPAL [place] nn BILATERAL TUNNEL SYNDROME, BILATERAL Inactive Condition 4 [facility] ARTHRITIS, Condition Active 2013-04-19 [facility] RHEUMATOID 11:19:00 l [place] ARTHRITIS, RHEUMATOID Active Condition 04/19/2013 [facility] HYPERTENSI Condition Active 2013-04-19 Mem[facility] ON 11:19:00 l [place] HYPERTENSI ON Active Condition 04/19/2013 [facility] DIABETES Condition Active 2013-04-19 M emoria MELLITUS, 11:19:00 l TYPE I, DIABETES [place] nn ADULT MELLITUS, ONSET TYPE I, ADULT ONSET Active Condition 04/19/2013 [facility] VITAMIN D Condition Active 2013-04-19 Mem[facility] DEFICIENCY 11:19:00 l VITAMIN [place] D DEFICIENCY Active Condition 04/19/2013 [facility] SHOULDER Condition Active 2013-04-19 M emoria PAIN, 11:19:00 l RIGHT SHOULDER Alex n PAIN, RIGHT Active Condition 04/19/2013 [facility] UNSPECIFIE Condition Active 2013-04-19 Memoria D 11:19:00 l ARTHROPATH Alex n Y SITE UNSPECIFIE UNSPECIFIE D D ARTHROPATH Y SITE UNSPECIFIE D Active Condition 04/19/2013 [facility] History of Past Illness Condition Condition Condition Status Onset Resolution Last Treating Co mments Source Name Details Category Date Date Treatment Clinician Date RIGHT Condition Inactiv 2013-04-19 2013-04-19 Memoria CUBITAL e -13 11:19:00 11:19:00 l TUNNEL RIGHT 00:00: [place] SYNDROME CUBITAL 00 TUNNEL SYNDROME Inactive 04/18/2011 Condition 4 [facility] RIGHT Condition Inactiv 2010-042013-04-19 2013-04-19 Memoria CARPAL e 1- 11:19:00 11:19:00 l TUNNEL RIGHT 00:00: [place] SYNDROME CARPAL 00 TUNNEL SYNDROME Inactive 02/14/2011 Condition 4 [facility] Allergies, Adverse Reactions, Alerts [...] oria 40 MG TABS 1-27 l 10:42: [place] 00 AMLODIPINE 2011-04 No 1 po qd Devonte bennie BESYLATE 10 1-27 l MG TABS 10:42: [place] 00 SIMVASTATIN No 1 po qd Mem oria 40 MG TABS 7-26 l 08:02: AMLODIPINE 2011-0 No 1 po qd [place] bennie BESYLATE 10 7-26 l MG TABS 08:02: VITAMIN D 0 Yes per other Mem oria CAPS 3-16 M.D. l 00:00: DEPAKOTE 0 Yes per other [place] bennie TBEC 3-16 M.D. l 00:00: HYDROXYCHLO 0 Yes 1 tab qd Me moria ROQUINE 3-16 l SULFATE 200 00:00: Alex n MG TABS 00 VITAMIN D 0 No per other Mem oria CAPS 3-16 M.D. l 00:00: DEPAKOTE No per other [place] bennie TBEC 3-16 M.D. l 00:00: HYDROXYCHLO No 1 tab qd Me mor[place] ROQUINE 3-16 l SULFATE 200 00:00: Alex n MG TABS 00 GLIPIZIDE 2010-04 Yes per other Mem oria [...] l 37.5-325 MG 00:00: Alex n TABS TRAMADOL-AC 2010-04 No 1 tab q 12 Memoria ETAMINOPHEN 0-20 hourly PRN l 37.5-325 MG 00:00: Alex n TABS TRAMADOL-AC 2010-04 No 1 tab q 12 [facility] ETAMINOPHEN 0-20 hourly PRN l 37.5-325 MG 00:00: Alex n TABS TRAMADOL No 1 po qd Memori a HCL 50 MG 4-07 l TABS 00:00: TIZANIDINE No 1 tab QHS Me moria HCL 4 MG 4-07 PRN l TABS 00:00: HYDROXYCHLO No 1 tab qd Me [place] ROQUINE 4-07 l SULFATE 200 00:00: Alex n MG TABS MELOXICAM No 1 tab qd Devonte bennie 15 MG TABS 4-07 w/ food l 00:00: PRN TRAMADOL No 1 po qd Memori a HCL 50 MG 4-07 l TABS 00:00: HYDROXYCHLO No 1 tab qd Me mor[place] ROQUINE 4-07 l SULFATE 200 00:00: Alex n MG TABS MELOXICAM No 1 tab qd Devonte bennie 15 MG TABS 4-07 w/ food l 00:00: PRN TIZANIDINE No 1 tab QHS Me moria HCL 4 MG 4-07 PRN l TABS 00:00: TRAMADOL No 1 po qd Memori a HCL 50 MG 4-07 l TABS 00:00: MELOXICAM No 1 tab qd Devonte bennie 15 MG TABS 4-07 w/ food l 00:00: PRN TIZANIDINE No 1 tab QHS Me moria HCL 4 MG 4-07 PRN l TABS 00:00: VITAMIN D 0 No 1 tab once Me [place] 76150 UNIT 3-09 a week for l CAPS 00:00: two weeks VITAMIN D 2009- No 1 tab once [place] 27511 UNIT 3-09 a week for l CAPS 00:00: two weeks [place] 00 Vital Signs Vital Name Observation Time Observation Value Comments Source Height 2013-04-19 16:42:10 [facility] [place] Systolic (mm Hg) 2013-04-19 16:42:10 [facility] [place] Diastolic (mm Hg) 2013-04-19 16:42:10 [facility] [place] Heart Rate 2013-04-19 16:42:10 [facility] [place] Systolic (mm Hg) 2011-01-16 16:53:41 [facility] rial [place] Diastolic (mm Hg) 2011-01-16 16:53:41 [facility] [place] Heart Rate 2011-01-16 16:53:41 [facility] [place] Systolic (mm Hg) 2010-07-11 13:20:54 [facility] [place] Diastolic (mm Hg) 2010-07-11 13:20:54 Mem [facility] [place] Heart Rate 2010-07-11 13:20:54 [facility] [place] Systolic (mm Hg) 2009-11-28 13:10:48 [facility] [place] Diastolic (mm Hg) 2009-11-28 13:10:48 [facility] [place] Heart Rate 2009-11-28 13:10:48 [facility] Weight 2009-11-28 13:10:48 [facility] Height 2009-06-07 16:58:43 [facility] [place] Weight 2009-06-07 16:58:43 [facility] [place] Systolic (mm Hg) 2009-06-07 16:58:43 [facility] [place] Diastolic (mm Hg) 2009-06-07 16:58:43 [facility] [place] Heart Rate 2009-06-07 16:58:43 [facility] Procedures Procedure Date / Time Performed Performing Clinician Sourc e genitourinary review of 2009-06-07 16:58:43 Dev[facility] rial [facility] systems, E&M Encounters Start End Encounter Admission Attending Care Care Encounter Source Date/Time Date/Time Type Type Clinicians Facility Department ID 2020-08-01 2020-08-01 Office RAUL Enriquez [id number] 09:09:11 12:28:15 Visit Kayleen AMBULATOR [id number] Javier Y [id number] 2020-07-02 2020-07-02 Office RAUL Soliman [id number] 08:50:02 09:20:02 Visit Albin AMBULATOR [id number] Vinnie Y [id number] 2020-06-28 2020-06-28 Office RAUL Laura [id number] 09:53:30 10:13:30 Visit Rocky Caldwell AMBULATOR [id number] Y [id number] 2020-06-25 2020-06-25 Office RAUL Salcedo [id number] 09:30:00 10:00:00 Visit Bridget Morfin AMBULATOR [id number] Win Y [id number] 2020-04-16 2020-04-16 Office RAUL Soliman [id number] 10:00:07 10:34:47 Visit Albin AMBULATOR [id number] Vinnie Y [id number] 2020-02-20 2020-02-20 Office Jourdan, RAUL [id number] 10:40:33 11:12:10 Visit Albin AMBULATOR [id number] Vinnie Y [id number] 2020-02-20 2020-02-20 Office RAUL Enriquez [id number] 09:36:09 10:06:09 Visit Kayleen AMBULATOR [id number] Javier Y [id number] 2020-01-09 2020-01-09 Office RAUL Enriquez [id number] 08:08:09 10:16:20 Visit Kayleen AMBULATOR [id number] Javier Y [id number] 2019-12-19 2019-12-19 Office RAUL Soliman [id number] 08:46:04 09:46:04 Visit Albin AMBULATOR [id number] Vinnie Chacon [id number] Results Test Description Test Time Test Comments Results Result Comments Source Chemistry 2012-09-02 <1.0 mg/L [facility] 14:30:00 [place] [facility] 2012-09-02 24 [facility] 11:43:00 [place] [facility] 2012-09-02 12.4 [facility] 10:33:00 [place] [facility] 2012-09-02 37.0 [facility] 10:33:00 [place] [facility] 2012-09-02 247 X10E3/UL [facility] 10:33:00 [facility] 2011-07-02 12.4 [facility] 10:46:00 [place] [facility] 2011-07-02 37.6 [facility] 10:46:00 [place] [facility] 2011-07-02 240 X10E3/UL [facility] 10:46:00 [facility] 2011-07-02 0.97 [facility] 06:34:00 [place] [facility] 2011-07-02 0.97 [facility] 06:34:00 [facility] 2011-03-08 12.2 [facility] 07:25:00 [place] [facility] 2011-03-08 38.0 [facility] 07:25:00 [facility] 2011-03-08 255 X10E3/UL [facility] 07:25:00 [place] [facility] 2011-03-08 0.97 [facility] 07:04:00 [place] [facility] 2011-03-08 0.97 [facility] 07:04:00 [facility] 2011-03-08 0.97 [facility] 07:04:00 [facility]
[2020-08-02] MEDS ORDERED: METHYLPREDNISOLONE 125 MG INJ ONE (19:59)
[2020-08-02] MEDS ORDERED: DIPHENHYDRAMINE 50 MG/ML VIAL ONE (19:59)
[2020-08-02 20:03] LABS: Protime INR 1.09
[2020-08-02 20:06] LABS: Absolute Lymphocytes (CBC) 0.9 K/uL (0.7-4.9); Basophils % 0.6 % (0-1.3); Hematocrit 35.3 % (36.0-45.0); Lymphocytes % 36.4 % (15.3-44.8); MPV 9.1 fL (7.6-11.3); RBC Red Blood Cell Count 4.48 M/uL (3.86-4.86)
[2020-08-02 20:47] LABS: Blood Morphology Comment NOT SEEN (NOT SEEN); Platelet Estimate DECR; White Blood Cell Scan OK (OK)
--- NOTE | 2020-08-02 21:10 | RAD REPORT ---
EXAM DESCRIPTION: CT - Soft Tissue Neck W/Contr - 08/02/2020 8:46 pm CLINICAL HISTORY: SWELLING, pain, recent multiple tooth extraction COMPARISON: No comparisons TECHNIQUE: During dynamic enhancement using 100 milliliters nonionic IV contrast, axial 5 millimeter thick images of the neck were obtained. All CT scans are performed using dose optimization technique as appropriate and may include automated exposure control or mA/KV adjustment according to patient size. FINDINGS: Intracranial portion the examination is unremarkable. Partially imaged globes and orbits s how no suspicious finding. Mastoid air cells are clear. There is complete opacification of the left m axillary sinus. Chronic inspissated mucus seen in a partially opacified right maxillary sinus. No pharyngeal mucosal mass or asymmetry seen. Tonsillar and tongue base tissues within normal limits. Parapharyngeal fat is normal. Epiglottis and larynx show no suspicious findings. Parotid, submandibular and thyroid gland tissue show no suspicious findings. No acute or destructive bone process identifiable. No abscess or abnormal fluid collections seen. No suspicious lymphadenopat hy. IMPRESSION: As detailed above, soft tissue neck examination shows no acute or emergent finding. Chronic maxillary sinusitis.
--- NOTE | 2020-08-02 21:52 | EDPHYS ---
Physician Documentation [facility] Name: Izabela Minor Age: 69 yrs Sex: Female : 1950 Arrival Date: 08/02/2020 Time: 16:48 Bed 8 Private MD: ED Physician Endy Hernandez HPI: 08/02 19:20 This 69 yrs old Black Female presents to ER via Ambulatory with complaints of Throat cp Pain/Swelling. 19:20 The patient presents with sore throat, sensation of closing. Onset: The cp symptoms/episode began/occurred 3 day(s) ago, and became worse 1 hour(s) ago. Associated signs and symptoms: Pertinent negatives chest pain, diarrhea, dysphagia, fever, shortness of breath, vomiting. Patient reports she is currently taking Amoxicillin after having multiple teeth removed this past Thursday. Historical: - Allergies: 17:01 No Known Drug Allergies; tw2 - Home Meds: 17:01 torsemide Oral [Active]; losartan Oral [Active]; actose inj for diabetes [Active]; tw2 carvedilol 25 mg Oral tab 1 tab 2 times per day [Active]; gabapentin 300 mg Oral cap daily [Active]; amoxicillin 500 mg Oral cap 1 cap every 8 hours [Active]; acetaminophen-codeine 300-60 mg Oral tab 1 tab every 6 hours for Pain [Active]; - PMHx: 17:01 Bipolar disorder; Diabetes - IDDM; High Cholesterol; Hypertension; Rheumatoid tw2 Arthritis; sarcoidosis; - PSHx: 17:01 Kidney stents; Tubal ligation; polyps removed; tw2 - Immunization history:: Adult Immunizations. - Social history:: Smoking status: . ROS: 19:30 Constitutional: Negative for body aches, chills, fever, poor PO intake. cp 19:30 Eyes: Negative for injury, pain, redness, and discharge. cp 19:30 ENT: Positive for sore throat, feeling of throat closing. 19:30 Respiratory: Negative for cough, shortness of breath, wheezing. 19:30 Abdomen/GI: Negative for abdominal pain, nausea, vomiting, and diarrhea. 19:30 All other systems are negative. Exam: 19:35 Constitutional: The patient appears in no acute distress, alert, awake, cp non-diaphoretic, non-toxic, well developed, well nourished. 19:35 Head/Face: Normocephalic, atraumatic. cp 19:35 Eyes: Periorbital structures: appear normal, Conjunctiva: normal, no exudate, no injection, Sclera: no appreciated abnormality, Lids and lashes: appear normal, bilaterally. 19:35 ENT: External ear(s): are unremarkable, Nose: is normal, Mouth: Lips: moist, Oral mucosa: moist, Posterior pharynx: Airway: no evidence of obstruction, patent, Uvula: midline, swelling, is not appreciated, erythema, is not appreciated, exudate, is not appreciated, Dental exam: dental caries, that is severe, diffusely, missing teeth, diffusely, Voice: is normal. 19:35 Neck: External neck: swelling, is not appreciated, tenderness, that is mild, right lateral neck, ROM/movement: is normal, is supple, no meningismus, no nuchal rigidity. 19:35 Chest/axilla: Inspection: normal, Palpation: is normal, no crepitus, no tenderness. 19:35 Cardiovascular: Rate: normal, Rhythm: regular, JVD: is not appreciated. 19:35 Respiratory: the patient does not display signs of respiratory distress, Respirations: normal, no use of accessory muscles, no retractions, labored breathing, is not present, Breath sounds: are clear throughout, no decreased breath sounds, no stridor, no wheezing. 19:35 Abdomen/GI: Exam negative for discomfort, Inspection: abdomen appears normal. 19:35 Skin: cellulitis, is not appreciated, no rash present. 19:35 Neuro: Orientation: to person, place \T\ time. Mentation: is normal. Vital Signs: 16:56 BP 161 / 82; Pulse 78; Resp 17; Temp 97.9(TE); Pulse Ox 100% on R/A; Weight 102.51 kg tw2 (R); Height 5 ft. 9 in. (175.26 cm); 22:00 BP 156 / 80; Pulse 74; Resp 18; Pulse Ox 99% on R/A; wh 16:56 Body Mass Index 33.37 (102.51 kg, 175.26 cm) tw2 MDM: 19:09 Patient medically screened. cp 19:35 Differential diagnosis: epiglottitis, jose angel's angina, peritonsillar abscess cp pharyngitis, retropharyngeal abcess tonsillitis, uvulitis, allergic reaction. 21:50 Data reviewed: vital signs, nurses notes, lab test result(s), radiologic studies, CT cp scan. 21:50 Counseling: I had a detailed discussion with the patient and/or guardian regarding: the cp historical points, exam findings, and any diagnostic results supporting the discharge/admit diagnosis, lab results, radiology results, to return to the emergency department if symptoms worsen or persist or if there are any questions or concerns that arise at home. Response to treatment: the patient's symptoms have markedly improved after treatment, VSS. patient reports symptoms markedly improved after meds. Patient instructed to stop Amoxicillin and will discharge to home for continued monitoring. 08/02 19:16 Order name: Strep; Complete Time: 20:51 cp 08/02 19:16 Order name: [place] Screen Profile; Complete Time: 20:51 cp 08/02 19:16 Order name: CBC with Diff; Complete Time: 20:51 cp 08/02 20:51 Interpretation: Normal except: WBC 2.50; HGB 11.6; HCT 35.3; MCV 78.9; MCH 25.9; PLT cp 137; NEUT A 1.2. 08/02 19:16 Order name: BMP; Complete Time: 20:51 cp 08/02 20:51 Interpretation: Normal except: BUN 19; GFR 52. cp 08/02 19:16 Order name: PT-INR; Complete Time: 20:51 cp 08/02 20:14 Order name: Throat Culture EDMS 08/02 19:16 Order name: CT Soft Tissue Neck W/contr; Complete Time: 21:44 cp 08/02 19:16 Order name: IV; Complete Time: 19:37 cp 08/02 20:47 Order name: CBC Smear Scan; Complete Time: 20:51 EDMS Administered Medications: 19:45 Drug: SOLU-Medrol (methylPrednisoLONE) 125 mg Route: IVP; Site: left antecubital; wh 21:40 Follow up: Response: No adverse reaction mg2 22:08 Follow up: Response: No adverse reaction 19:47 Drug: Benadryl (diphenhydrAMINE) 25 mg Route: IVP; Site: left antecubital; wh 21:40 Follow up: Response: No adverse reaction mg2 22:08 Follow up: Response: No adverse reaction wh Disposition: 08/03 06:36 Co-signature as Attending Physician, Endy Hernandez MD. [email or web address] Disposition: 08/02/20 21:51 Discharged to Home. Impression: Allergy status to other antibiotic agents status. - Condition is Stable. - Discharge Instructions: Allergies, Adult. - Prescriptions for Pepcid 20 mg Oral Tablet - take 1 tablet by ORAL route every 12 hours for 5 days; 10 tablet. Prednisone 20 mg Oral Tablet - take 2 tablet by ORAL route once daily for 5 days; 10 tablet. - Medication Reconciliation Form, Thank You Letter, Antibiotic Education, Prescription Opioid Use form. - Follow up: Private Physician; When: 1 - 2 days; Reason: Worsening of condition. - Problem is new. - Symptoms have improved. Signatures: Dispatcher [employer] EDMS Mitchell House PA PA cp Wise, Tara, RN RN 2 Aroldo Paiz RN RN Endy Hernandez MD MD 7 Jhon Hannah RN mg2 Corrections: (The following items were deleted from the chart) 08/02 22:08 21:51 08/02/2020 21:51 Discharged to Home. Impression: Allergy status to other antibiotic agents status. Condition is Stable. Forms are Medication Reconciliation Form, Thank You Letter, Antibiotic Education, Prescription Opioid Use. Follow up: Private Physician; When: 1 - 2 days; Reason: Worsening of condition. Problem is new. Symptoms have improved. cp
--- NOTE | 2020-08-02 21:52 | ER ---
Nurse's Notes [facility] Name: Izabela Minor Age: 69 yrs Sex: Female : 1950 Arrival Date: 08/02/2020 Time: 16:48 Bed 8 Private MD: Diagnosis: Allergy status to other antibiotic agents status Presentation: 08/02 16:56 Chief complaint: Patient states: my throat has been hurting off and on for like 3 days tw2 but it feels like it is going to close up on the right side like about an hour, Thursday i had 4 teeth pulled. Coronavirus screen: At this time, the client does not indicate any symptoms associated with coronavirus-19. Ebola Screen: Patient denies travel to an Ebola-affected area in the 21 days before illness onset. Initial Sepsis Screen: Does the patient meet any 2 criteria? No. Patient's initial sepsis screen is negative. Does the patient have a suspected source of infection? No. Patient's initial sepsis screen is negative. Risk Assessment: Do you want to hurt yourself or someone else? Patient reports no desire to harm self or others. Onset of symptoms was August 02, 2020. 16:56 Method Of Arrival: Ambulatory tw2 16:58 Chief complaint: Patient states: i had that Jonathon and Jonathon vaccine on 06/22 like a tw2 foot. 16:58 Acuity: NIYA 3 tw2 Triage Assessment: 16:58 General: Appears in no apparent distress. obese, well groomed, Behavior is calm, tw2 cooperative, appropriate for age. Pain: Complains of pain in uvula, left aspect of posterior pharynx and right aspect of posterior pharynx. Historical: - Allergies: 17:01 No Known Drug Allergies; tw2 - Home Meds: 17:01 torsemide Oral [Active]; losartan Oral [Active]; actose inj for diabetes [Active]; tw2 carvedilol 25 mg Oral tab 1 tab 2 times per day [Active]; gabapentin 300 mg Oral cap daily [Active]; amoxicillin 500 mg Oral cap 1 cap every 8 hours [Active]; acetaminophen-codeine 300-60 mg Oral tab 1 tab every 6 hours for Pain [Active]; - PMHx: 17:01 Bipolar disorder; Diabetes - IDDM; High Cholesterol; Hypertension; Rheumatoid tw2 Arthritis; sarcoidosis; - PSHx: 17:01 Kidney stents; Tubal ligation; polyps removed; tw2 - Immunization history:: Adult Immunizations. - Social history:: Smoking status: . Screenin:05 Abuse screen: Denies threats or abuse. Nutritional screening: No deficits noted. tw2 Tuberculosis screening: No symptoms or risk factors identified. Fall Risk None identified. Assessment: 19:15 General: Appears in no apparent distress. Behavior is calm, cooperative, appropriate wh for age. Pain: Denies pain. Neuro: Level of Consciousness is awake, alert, obeys commands, Oriented to person, place, time, situation, Appropriate for age. Cardiovascular: Capillary refill < 3 seconds. Respiratory: Airway is patent Respiratory effort is even, unlabored, Respiratory pattern is regular, symmetrical. GI: Abdomen is round non-distended. : No signs and/or symptoms were reported regarding the genitourinary system. EENT: Throat is pink. Derm: Skin is intact, is healthy with good turgor, Skin is pink, warm \T\ dry. normal. Musculoskeletal: Circulation, motion, and sensation intact. 20:30 Reassessment: Patient appears in no apparent distress at this time. No changes from previously documented assessment. Patient and/or family updated on plan of care and expected duration. Pain level reassessed. Patient is alert, oriented x 3, equal unlabored respirations, skin warm/dry/pink. 21:45 Reassessment: Patient appears in no apparent distress at this time. Patient and/or family updated on plan of care and expected duration. Pain level reassessed. Patient is alert, oriented x 3, equal unlabored respirations, skin warm/dry/pink. Vital Signs: 16:56 BP 161 / 82; Pulse 78; Resp 17; Temp 97.9(TE); Pulse Ox 100% on R/A; Weight 102.51 kg tw2 (R); Height 5 ft. 9 in. (175.26 cm); 22:00 BP 156 / 80; Pulse 74; Resp 18; Pulse Ox 99% on R/A; wh 16:56 Body Mass Index 33.37 (102.51 kg, 175.26 cm) tw2 ED Course: 16:48 Patient arrived in ED. ds1 16:58 Triage completed. tw2 16:58 Arm band placed on. tw2 18:53 Mitchell House PA is PHCP. cp 18:53 Tian Mccoy MD is Attending Physician. cp 19:17 Endy Hernandez MD is Attending Physician. cp 19:46 Aroldo Paiz, RN is Primary Nurse. 20:00 Patient has correct armband on for positive identification. Bed in low position. Call wh light in reach. Side rails up X 1. Pulse ox on. NIBP on. 20:00 Inserted saline lock: 20 gauge in left antecubital area, using aseptic technique. Blood wh collected. 20:45 CT Soft Tissue Neck W/contr In Process Unspecified. EDMS 22:07 No provider procedures requiring assistance completed. intact, bleeding controlled, No wh redness/swelling at site. Administered Medications: 19:45 Drug: SOLU-Medrol (methylPrednisoLONE) 125 mg Route: IVP; Site: left antecubital; 21:40 Follow up: Response: No adverse reaction mg2 22:08 Follow up: Response: No adverse reaction 19:47 Drug: Benadryl (diphenhydrAMINE) 25 mg Route: IVP; Site: left antecubital; 21:40 Follow up: Response: No adverse reaction mg2 22:08 Follow up: Response: No adverse reaction Outcome: 21:51 Discharge ordered by MD. 22:08 Discharged to home ambulatory. 22:08 Condition: stable 22:08 Discharge instructions given to patient, Instructed on discharge instructions, follow up and referral plans. medication usage, POC Demonstrated understanding of instructions, follow-up care, medications, POC Prescriptions given X 2. 22:08 Patient left the ED. Signatures: Dispatcher [employer] EDLA YousifЕлена ds1 Mitchell House PA PA cp Tiny Lee, RN RN tw2 Aroldo Paiz, RN RN Jhon Hannah RN RN mg2 Corrections: (The following items were deleted from the chart) 16:58 16:56 Acuity: NIYA 4 tw2 tw2
[2020-08-02 22:41] VITALS: TEMP 97.9
[2020-08-02 22:42] VITALS: BP 156/80; O2SAT 99
== END 2020-08-02 22:08 | disposition home or self-care (01) ==
LOC: ER 16:46
DX: R07.0 Pain in throat (principal); Z88.1 Allergy status to other antibiotic agents; I10 Essential (primary) hypertension; E11.9 Type 2 diabetes mellitus without complications
CPT/HCPCS: 87070; 85025; 80048; 36415; 86308; 85610; 87081; 70491; 96375; 96374; 99284; Q9967; J1200; J2930

== ENCOUNTER 2020-09-04 09:45 | Emergency (ER) | payer OTHER ==
--- OUTSIDE RECORDS SUMMARY | 2020-09-04 09:51 | XMS REPORT | Continuity of Care Document ---
:1950 Author Organization [facility] t Address [address] [place] [address] Care Team Providers Name Role Phone Zoe WEINBERG, Kayleen Herrera Attending Clinician Vinnie Soliman DO Attending Clinician Paulette Laura DPM Attending Clinician Denisse WEINBERG, Navjot Walden Attending Clinician [phone] Problems Condition Condition Condition Status Onset Resolution Last Treating Co mments Source Name Details Category Date Date Treatment Clinician Date F0390 - Diagnosis Active 2016-01-14 M emoria UNSPECIFIE 12-26 11:41:00 l D DEMENTIA F03.90 - 00:01: 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/2015 [facility] [place] HYPERCHOLE Condition Active 2010-042013-04-19 Mem[facility] STEROLEMIA 04-16 11:19:00 l 00:00: [place] HYPERCHOLE 00 STEROLEMIA Active 02/14/2011 Condition 4 [facility] BIPOLAR Condition Active 2010-042013-04-19 Me moria DISORDER 04-16 11:19:00 l UNSPECIFIE BIPOLAR 00:00: Her [place] D DISORDER 00 UNSPECIFIE D Active 02/14/2011 Condition 4 [facility] HYPERLIPID Condition Inactiv 2013-04-19 Memoria EMIA e 11:19:00 l [place] HYPERLIPID EMIA Inactive Condition 4 [facility] PAIN IN Condition Inactiv 2013-04-19 M emoria JOINT, e 11:19:00 l MULTIPLE PAIN IN Lacy nn SITES JOINT, MULTIPLE SITES Inactive Condition 4 [facility] SARCOIDOSI Condition Inactiv 2013-04-19 Memoria S e 11:19:00 l [place] SARCOIDOSI S Inactive Condition 4 [facility] UNSPECIFIE Condition Inactiv 2013-04-19 Memoria D e 11:19:00 l INFLAMMATO Alex n RY UNSPECIFIE POLYARTHRO D TE INFLAMMATO RY POLYARTHRO TE Inactive Condition 4 [facility] TENDINITIS Condition Inactiv 2013-04-19 Memoria , e 11:19:00 l SHOULDER, [place] RIGHT TENDINITIS , SHOULDER, RIGHT Inactive Condition 4 [facility] BACK PAIN, Condition Inactiv 2013-04-19 Memoria LUMBAR e 11:19:00 l BACK [place] PAIN, LUMBAR Inactive Condition 4 [facility] [...] l [facility] ARTHRITIS, RHEUMATOID Active Condition 04/19/2013 [facility] HYPERTENSI Condition Active 2013-04-19 Memoria ON 11:19:00 l [place] HYPERTENSI ON Active Condition 04/19/2013 [facility] [...] 1- 11:19:00 11:19:00 l TUNNEL RIGHT 00:00: [place] SYNDROME CARPAL 00 TUNNEL SYNDROME Inactive 02/14/2011 [...] oria 40 MG TABS 1-27 l 10:42: [place] 00 AMLODIPINE 2011-04 No 1 po qd Dev[place] bennie BESYLATE 10 1-27 l MG TABS 10:42: [facility] 00 SIMVASTATIN No 1 po qd Mem [...] 0 No 1 tab once [place] mor[place] [id number] UNIT 3-09 a week for l CAPS 00:00: two weeks VITAMIN D 2009- No 1 tab once [place] moria [id number] UNIT 3-09 a week for l CAPS 00:00: two weeks [place] 00 Vital Signs Vital Name Observation Time Observation Value Comments Source Height 2013-04-19 16:42:10 [facility] Systolic (mm Hg) 2013-04-19 16:42:10 [facility] [facility] Diastolic (mm Hg) 2013-04-19 16:42:10 Mem [facility] Heart Rate 2013-04-19 16:42:10 [facility] [place] Systolic (mm Hg) 2011-01-16 16:53:41 [place] rial [place] Diastolic (mm Hg) 2011-01-16 16:53:41 Mem orial [place] Heart Rate 2011-01-16 16:53:41 [facility] [place] Systolic (mm Hg) 2010-07-11 13:20:54 [place] rial [place] Diastolic (mm Hg) 2010-07-11 13:20:54 [facility] Rate 2010-07-11 13:20:54 [facility] Systolic (mm Hg) 2009-11-28 13:10:48 [place] [facility] [place] Diastolic (mm Hg) 2009-11-28 13:10:48 Mem [facility] [place] Heart Rate 2009-11-28 13:10:48 [facility] [place] Weight 2009-11-28 13:10:48 [facility] Height 2009-06-07 16:58:43 [facility] [place] Weight 2009-06-07 16:58:43 [facility] Systolic (mm Hg) 2009-06-07 16:58:43 [facility] [facility] [place] Diastolic (mm Hg) 2009-06-07 16:58:43 Mem o[facility] [place] Heart Rate 2009-06-07 16:58:43 [facility] [place] Procedures Procedure Date / Time Performed Performing Clinician Sourc e genitourinary review of 2009-06-07 16:58:43 Devonte rial [place] systems, E&M Encounters Start End Encounter Admission Attending Care Care Encounter Source Date/Time Date/Time Type Type Clinicians Facility Department ID 2020-08-01 2020-08-01 Office RAUL Enriquez [id number] 09:09:11 12:28:15 Visit Kayleen AMBULATOR [id number] Javier Y [id number] 2020-07-02 2020-07-02 Office RAUL Soliman [id number] 08:50:02 09:20:02 Visit Albin AMBULATOR [id number] Vinnie Y [id number] 2020-06-28 2020-06-28 Office RAUL Laura [id number] 09:53:30 10:13:30 Visit Rocky Caldwell AMBULATOR [id number] Y [id number] 2020-06-25 2020-06-25 Office RAUL Salcedo [id number] 09:30:00 10:00:00 Visit Bridget Morfin AMBULATOR [id number] Win Y [id number] 2020-04-16 2020-04-16 Office RAUL Soliman [id number] 10:00:07 10:34:47 Visit Albin AMBULATOR [id number] Vinnie Y [id number] 2020-02-20 2020-02-20 Office Jourdan, RAUL [id number] 10:40:33 11:12:10 Visit Albin AMBULATOR [id number] Vinnie Y [id number] 2020-02-20 2020-02-20 Office RAUL Enriquez [id number] 09:36:09 10:06:09 Visit Kayleen AMBULATOR [id number] Javier Y [id number] 2020-01-09 2020-01-09 Office RAUL Enriquez [id number] 08:08:09 10:16:20 Visit Kayleen AMBULATOR [id number] Javier Y [id number] 2019-12-19 2019-12-19 Office RAUL Soliman [id number] 08:46:04 09:46:04 Visit Albin AMBULATOR [id number] Vinnie Chacon [id number] Results Test Description Test Time Test Comments Results Result Comments Source Chemistry 2012-09-02 <1.0 mg/L [facility] 14:30:00 [facility] 2012-09-02 24 [facility] 11:43:00 [place] [facility] 2012-09-02 12.4 [facility] 10:33:00 [facility] 2012-09-02 37.0 [facility] 10:33:00 [place] [facility] 2012-09-02 247 X10E3/UL [facility] 10:33:00 [place] [facility] 2011-07-02 12.4 [facility] 10:46:00 [place] [facility] 2011-07-02 37.6 [facility] 10:46:00 [facility] 2011-07-02 240 X10E3/UL [facility] 10:46:00 [place] Chemistry 2011-07-02 0.97 [facility] 06:34:00 [place] Chemistry 2011-07-02 0.97 [facility] 06:34:00 [place] [facility] 2011-03-08 12.2 [facility] 07:25:00 [facility] 2011-03-08 38.0 [facility] 07:25:00 [place] [facility] 2011-03-08 255 X10E3/UL [facility] 07:25:00 [facility] 2011-03-08 0.97 [facility] 07:04:00 [facility] 2011-03-08 0.97 [facility] 07:04:00 [facility] 2011-03-08 0.97 [facility] 07:04:00 [facility]
[2020-09-04] MEDS ORDERED: MORPHINE 4 MG/ML SYR ONE (13:10)
[2020-09-04] MEDS ORDERED: ONDANSETRON 4 MG/2 ML VIAL ONE (13:10)
[2020-09-04 13:30] LABS: Potassium 3.9 mmol/L (3.5-5.1)
[2020-09-04 13:31] LABS: Absolute Lymphocytes (CBC) 0.6 K/uL (0.7-4.9); Basophils % 0.4 % (0-1.3); Hematocrit 37.1 % (36.0-45.0); Lymphocytes % 15.2 % (15.3-44.8); MPV 9.1 fL (7.6-11.3); RBC Red Blood Cell Count 4.61 M/uL (3.86-4.86)
--- NOTE | 2020-09-04 14:04 | RAD REPORT ---
EXAM DESCRIPTION: CT - Facial Bones W Nish Mpr - 09/04/2020 1:49 pm CLINICAL HISTORY: Right-sided facial pain and swelling COMPARISON: None. TECHNIQUE: Axial 2 millimeter thick images of the facial bones were obtained with sagittal and coron al reconstruction imaging. All CT scans are performed using dose optimization technique as appropriate and may include automated exposure control or mA/KV adjustment according to patient size. FINDINGS: Intracranial portion the examination is unremarkable. No globe or orbital content abnormal ity identifiable. Small frontal sinuses are clear. There is patchy opacification in the anterior aspe ct of each ethmoid air cell. Small sphenoid sinus is clear. There is essentially complete opacificati on of the left-side maxillary sinus. Solis are thickened which would indicate chronic left-sided sinu sitis. Mucosal thickening is significant in the right maxillary sinus but lesser in severity than the left-side. Inspissated mucus is present. Mastoid air cells and middle ears are clear. No fracture or destructive bone process seen. There is extensive dental decay but no destructive process confirmed. Parotid and submandibular glands show no suspicious findings. No gross abnormality along the floor th e mouth or tongue base. No gross pharyngeal mucosal process seen. This is a limited exam for pharynx and tonsillar assessment. IMPRESSION: Bilateral maxillary sinusitis changes are present. Changes appear chronic with no acute air-fluid level seen. No focal right-sided soft tissue abnormality seen. Patient has evidence for dental decay but no activ e or destructive process can be confirmed.
--- NOTE | 2020-09-04 14:06 | RAD REPORT ---
EXAM DESCRIPTION: CT - Head Brain Wo Cont - 09/04/2020 1:49 pm CLINICAL HISTORY: HEADACHE COMPARISON: Head Brain Wo Cont dated 04/19/2019 TECHNIQUE: Axial 5 mm thick images of the head were obtained without IV contrast. All CT scans are performed using dose optimization technique as appropriate and may include automated exposure control or mA/KV adjustment according to patient size. FINDINGS: No intracranial hemorrhage, mass, edema or shift of mid-line structures. No acute infarcti on changes seen. No abnormal extra-axial fluid collections. Ventricles are normal. No measurable atr ophy or chronic ischemic change. Mastoid air cells are clear. Middle ears are clear. No acute bony findings. IMPRESSION: No intracranial abnormality identifiable. Orbits, facial bones and sinuses are detailed on separate report.
--- NOTE | 2020-09-04 15:01 | EDPHYS ---
Physician Documentation [facility] Name: Izabela Minor Age: 69 yrs Sex: Female : 1950 Arrival Date: 09/04/2020 Time: 09:49 Bed 15 Private MD: ED Physician Mitchell Carbajal HPI: 09/04 12:21 This 69 yrs old Black Female presents to ER via Ambulatory with complaints of Head Pain.jmm 12:21 The patient complains of pain to the right cheek, right ear, right pentecostalism and left jmm pentecostalism. 12:21 Onset: The symptoms/episode began/occurred gradually, 1 week(s) ago. jmm 12:21 Associated signs and symptoms: Pertinent positives: Pertinent negatives: fever, neck jmm stiffness, paresthesias, Photophobia rash, vision changes, vision loss, vomiting, weakness. This is a 69 year old female with a history of bipolar that presents to the ED with complaints of frontal headache, right sided jaw pain, dental pain beginning approx 1 wee ago worsening the past day. Patient states she had an appt with ENT but unable to go due to stomach cramping. . Historical: - Allergies: 10:22 Sulfa (Sulfonamide Antibiotics); aa5 10:22 Amoxicillin (Anaphylaxis); aa5 - PMHx: 10:22 Bipolar disorder; Diabetes - IDDM; High Cholesterol; Hypertension; Rheumatoid aa5 Arthritis; sarcoidosis; - PSHx: 10:22 Kidney stents; Tubal ligation; polyps removed; aa5 - Immunization history:: Client reports receiving the 1st dose of the Covid vaccine, Flu vaccine is up to date. - Social history:: Smoking status: Patient denies any tobacco usage or history of. ROS: 12:21 Constitutional: Negative for fever, chills, and weight loss, Cardiovascular: Negative jmm for chest pain, palpitations, and edema, Respiratory: Negative for shortness of breath, cough, wheezing, and pleuritic chest pain. 12:21 Neuro: Positive for headache. 12:21 All other systems are negative. Exam: 12:21 Constitutional: This is a well developed, well nourished patient who is awake, alert, jmm and in no acute distress. 12:21 Eyes: EOMI, no conjunctival erythema appreciated ENT: Moist Mucus Membranes Neck: Trachea midline, Supple Chest/axilla: Normal chest wall appearance and motion. Cardiovascular: Regular rate and rhythm. No edema appreciated Respiratory: Normal respirations, no respiratory distress appreciated Abdomen/GI: Non distended, soft Back: Normal ROM Skin: General appearance color normal 12:21 Head/face: Noted is pain. 12:21 ENT: dental decay noted diffusely. 12:21 Musculoskeletal/extremity: ROM: intact in all extremities. 12:21 Skin: Appearance: Color: normal in color. 12:21 Neuro: Orientation: is normal, Mentation: is normal, Memory: is normal. 12:21 Psych: Behavior/mood is pleasant, cooperative. Vital Signs: 10:20 BP 142 / 74; Pulse 72; Resp 18 S; Temp 98.3(TE); Pulse Ox 98% on R/A; Weight 104.33 kg aa5 (R); Height 5 ft. 9 in. (175.26 cm) (R); Pain 8/10; 12:09 BP 161 / 83; Pulse 66; Resp 16; Pulse Ox 99% on R/A; vg1 13:03 BP 152 / 78; Pulse 70; Resp 16; Pulse Ox 97% ; vg1 15:02 BP 140 / 79; Pulse 73; Resp 16; Pulse Ox 100% on R/A; vg1 10:20 Body Mass Index 33.96 (104.33 kg, 175.26 cm) aa5 MDM: 12:21 Patient medically screened. omar 14:59 Data reviewed: vital signs, nurses notes. Counseling: I had a detailed discussion with jael the patient and/or guardian regarding: the historical points, exam findings, and any diagnostic results supporting the discharge/admit diagnosis, lab results, radiology results, the need for outpatient follow up, to return to the emergency department if symptoms worsen or persist or if there are any questions or concerns that arise at home. ED course: Patient is alert and non toxic in appearance in the ED. Will folow up with ENT for further evaluation. Patient otherwise given strict return precautions. patient understood and agrees with the plan of care. . 09/04 12:41 Order name: CBC with Diff; Complete Time: 13:57 [facility] 09/04 12:41 Order name: BMP; Complete Time: 13:31 [facility] 09/04 12:41 Order name: CT Facial Bones W/ Con \T\ Mpr; Complete Time: 14:07 [facility] 09/04 12:41 Order name: CT Head Brain wo Cont; Complete Time: 14:07 [facility] 09/04 12:41 Order name: Saline Lock; Complete Time: 13:00 [facility] Administered Medications: 13:01 Drug: Zofran (Ondansetron) 4 mg Route: IVP; Site: left antecubital; vg1 15:03 Follow up: Response: No adverse reaction vg1 13:03 Drug: morphine 4 mg Route: IVP; Site: left antecubital; vg1 15:03 Follow up: Response: No adverse reaction; Pain is decreased vg1 Disposition: 09/05 07:27 Co-signature as Attending Physician, Mitchell Carbajal MD I agree with the assessment and [facility] plan of care. Disposition: 09/04/20 15:01 Discharged to Home. Impression: Dental Caries, Sinusitis. - Condition is Stable. - Prescriptions for Zithromax Z- Jacob 250 mg Oral Tablet - take 1 tablet by ORAL route as directed for 5 days Day 1 - take two (2) tablets one time. Day 2, 3, 4 , 5 take one (1) tablet once daily.; 6 tablet. - Medication Reconciliation Form, Thank You Letter, Antibiotic Education, Prescription Opioid Use form. - Follow up: Private Physician; When: 2 - 3 days; Reason: Recheck today's complaints, Continuance of care, Re-evaluation by your physician. Signatures: Dispatcher [employer] Mitchell Palumbo MD MD cha Mickail, Joel, PA PA [facility] Mike Salgado em1 Danika Upton, RN RN aa5 Sumi Braun RN RN vg1 Corrections: (The following items were deleted from the chart) 09/04 15:10 15:01 09/04/2020 15:01 Discharged to Home. Impression: Dental Caries; Sinusitis. em1 Condition is Stable. Forms are Medication Reconciliation Form, Thank You Letter, Antibiotic Education, Prescription Opioid Use. Follow up: Private Physician; When: 2 - 3 days; Reason: Recheck today's complaints, Continuance of care, Re-evaluation by your physician. [facility]
--- NOTE | 2020-09-04 15:01 | ER ---
Nurse's Notes [facility] Name: Izabela Minor Age: 69 yrs Sex: Female : 1950 Arrival Date: 09/04/2020 Time: 09:49 Bed 15 Private MD: Diagnosis: Dental Caries;Sinusitis Presentation: 09/04 10:20 Chief complaint: Patient states: headache to anh temples since yesterday. Denies recent aa5 illness, denies nausea/vomiting, denies dizziness. Coronavirus screen: headache. Ebola Screen: Patient negative for fever greater than or equal to 101.5 degrees Fahrenheit, and additional compatible Ebola Virus Disease symptoms. Initial Sepsis Screen: Does the patient meet any 2 criteria? No. Patient's initial sepsis screen is negative. Does the patient have a suspected source of infection? No. Patient's initial sepsis screen is negative. Risk Assessment: Do you want to hurt yourself or someone else? Patient reports no desire to harm self or others. Onset of symptoms was September 03, 2020. 10:20 Method Of Arrival: Ambulatory aa5 10:20 Acuity: NIYA 3 aa5 Historical: - Allergies: 10:22 Sulfa (Sulfonamide Antibiotics); aa5 10:22 Amoxicillin (Anaphylaxis); aa5 - PMHx: 10:22 Bipolar disorder; Diabetes - IDDM; High Cholesterol; Hypertension; Rheumatoid aa5 Arthritis; sarcoidosis; - PSHx: 10:22 Kidney stents; Tubal ligation; polyps removed; aa5 - Immunization history:: Client reports receiving the 1st dose of the Covid vaccine, Flu vaccine is up to date. - Social history:: Smoking status: Patient denies any tobacco usage or history of. Screenin:09 Abuse screen: Denies threats or abuse. Nutritional screening: No deficits noted. vg1 Tuberculosis screening: No symptoms or risk factors identified. Fall Risk No fall in past 12 months (0 pts). No secondary diagnosis (0 pts). IV access (20 points). Ambulatory Aid- None/Bed Rest/Nurse Assist (0 pts). Gait- Normal/Bed Rest/Wheelchair (0 pts) Mental Status- Oriented to own ability (0 pts). Total [place] Fall Scale indicates No Risk (0-24 pts). Assessment: 12:03 General: Appears in no apparent distress. comfortable, Behavior is calm, cooperative. vg1 Pain: Complains of pain in head and lower ABD Pain currently is 8 out of 10 on a pain scale. Pain began 1 day ago. Neuro: Level of Consciousness is awake, alert, obeys commands, Oriented to person, place, time, situation, Denies dizziness. Cardiovascular: Patient's skin is warm and dry. Respiratory: Airway is patent Respiratory effort is even, unlabored. GI: Reports cramping, in Lower ABD. : No signs and/or symptoms were reported regarding the genitourinary system. EENT: No signs and/or symptoms were reported regarding the EENT system. Derm: Skin is intact, is healthy with good turgor. Musculoskeletal: Circulation, motion, and sensation intact. 13:03 Reassessment: Patient appears in no apparent distress at this time. Patient and/or vg1 family updated on plan of care and expected duration. Pain level reassessed. Patient is alert, oriented x 3, equal unlabored respirations, skin warm/dry/pink. 15:02 Reassessment: Patient appears in no apparent distress at this time. Patient and/or vg1 family updated on plan of care and expected duration. Pain level reassessed. Patient is alert, oriented x 3, equal unlabored respirations, skin warm/dry/pink. Rates pain 4/10 from 8/10 Patient states feeling better. Vital Signs: 10:20 BP 142 / 74; Pulse 72; Resp 18 S; Temp 98.3(TE); Pulse Ox 98% on R/A; Weight 104.33 kg aa5 (R); Height 5 ft. 9 in. (175.26 cm) (R); Pain 8/10; 12:09 BP 161 / 83; Pulse 66; Resp 16; Pulse Ox 99% on R/A; vg1 13:03 BP 152 / 78; Pulse 70; Resp 16; Pulse Ox 97% ; vg1 15:02 BP 140 / 79; Pulse 73; Resp 16; Pulse Ox 100% on R/A; vg1 10:20 Body Mass Index 33.96 (104.33 kg, 175.26 cm) aa5 ED Course: 09:49 Patient arrived in ED. ds1 10:18 Arm band placed on. aa5 10:21 Triage completed. aa5 12:07 Sumi Braun, RN is Primary Nurse. vg1 12:09 Patient has correct armband on for positive identification. Bed in low position. Call vg1 light in reach. Side rails up X 1. 12:20 Trey Lindsay PA is PHCP. jael 12:20 Mitchell Carbajal MD is Attending Physician. [facility] 12:57 Initial lab(s) drawn, by me, sent to lab. Inserted saline lock: 20 gauge in left dh3 antecubital area, using aseptic technique. Blood collected. 13:49 CT Facial Bones W/ Con \T\ Mpr In Process Unspecified. EDMS 13:49 CT Head Brain wo Cont In Process Unspecified. EDMS Administered Medications: 13:01 Drug: Zofran (Ondansetron) 4 mg Route: IVP; Site: left antecubital; vg1 15:03 Follow up: Response: No adverse reaction vg1 13:03 Drug: morphine 4 mg Route: IVP; Site: left antecubital; vg1 15:03 Follow up: Response: No adverse reaction; Pain is decreased vg1 Outcome: 15:01 Discharge ordered by . [facility] 15:10 Patient left the ED. em1 Signatures: Dispatcher [employer] EDMS Trey Lindsay PA PA jmm Sanford, Demi ds1 Mike Salgado em1 Danika Upton, RN RN 5 Renae Arceo 3 Sumi Braun, RN RN vg1
[2020-09-04 15:19] VITALS: TEMP 98.3
[2020-09-04 15:22] VITALS: BP 140/79; O2SAT 100
== END 2020-09-04 15:10 | disposition home or self-care (01) ==
LOC: ER 09:45
DX: J32.9 Chronic sinusitis, unspecified (principal); K02.9 Dental caries, unspecified; F31.9 Bipolar disorder, unspecified; E11.9 Type 2 diabetes mellitus without complications; Z79.4 Long term (current) use of insulin; E78.00 Pure hypercholesterolemia, unspecified; I10 Essential (primary) hypertension; M06.9 Rheumatoid arthritis, unspecified; D86.9 Sarcoidosis, unspecified
CPT/HCPCS: 85025; 80048; 36415; 70450; 70487; 76377; 96375; 96374; 99284; Q9967; J2405

== ENCOUNTER 2020-12-12 06:12 | Emergency (ER) | payer OTHER ==
--- OUTSIDE RECORDS SUMMARY | 2020-12-12 06:17 | XMS REPORT | Continuity of Care Document ---
:1950 Author Organization [facility] t Address [address] [place] [address] Care Team Providers Name Role Phone Josh Driscoll Primary Care Physician Alfredo BARRONP, F Attending Clinician Alfonso RN, T Attending Clinician Unavailable Only, Db Test Attending Clinician Unavailable Corinne WILSON Attending Clinician Zoe WEINBERG, Javier Attending Clinician Vinnie Soliman DO Attending Clinician Paulette Laura DPM Attending Clinician Denisse WEINBERG, Navjot Walden Attending Clinician [phone] Payers Payer Name Policy Type Policy Number Effective Date Expiration Date S ource Problems Condition Condition Condition Status Onset Resolution Last Treating Co mments Source Name Details Category Date Date Treatment Clinician Date - Diagnosis Active 2016-01-14 M emoria UNSPECIFIE 12-26 11:41:00 l D DEMENTIA - 00:01: He 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/2015 MH OPID [place] HYPERCHOLE Condition Active 2010-042013-04-19 Memoria STEROLEMIA - 11:19:00 l 00:00: Bull HYPERCHOLE 00 STEROLEMIA Active 02/14/2011 Condition 4 [facility] BIPOLAR Condition Active 2010-042013-04-19 Me moria DISORDER - 11:19:00 l UNSPECIFIE BIPOLAR 00:00: Her huffman D DISORDER 00 UNSPECIFIE D Active 02/14/2011 Condition 4 [facility] HYPERLIPID Condition Inactiv 2013-04-19 Memoria EMIA e 11:19:00 l Cable HYPERLIPID EMIA Inactive Condition 4 [facility] [...] 2013-04-19 Memoria , e 11:19:00 l SHOULDER, Cable RIGHT TENDINITIS , SHOULDER, RIGHT Inactive Condition 4 [facility] BACK PAIN, Condition Inactiv 2013-04-19 Memoria LUMBAR e 11:19:00 l BACK Cable PAIN, LUMBAR Inactive Condition 4 [facility] TRIGGER Condition Inactiv 2013-04-19 M emoria FINGER, e 11:19:00 l INDEX TRIGGER Bull FINGER FINGER, INDEX FINGER Inactive Condition 4 [facility] CARPAL Condition Inactiv 2013-04-19 Me moria TUNNEL e 11:19:00 l SYNDROME, CARPAL Lacy nn LEFT TUNNEL SYNDROME, LEFT Inactive Condition 4 [facility] ARTHRITIS, Condition Active 2013-04-19 Memoria RHEUMATOID 11:19:00 l Cable ARTHRITIS, RHEUMATOID Active Condition 04/19/2013 [facility] HYPERTENSI Condition Active 2013-04-19 Memoria ON 11:19:00 l Bull HYPERTENSI ON Active Condition 04/19/2013 [facility] DIABETES Condition Active 2013-04-19 M emoria MELLITUS, 11:19:00 l TYPE I, DIABETES Lacy nn ADULT MELLITUS, ONSET TYPE I, ADULT ONSET Active Condition 04/19/2013 [facility] VITAMIN D Condition Active 2013-04-19 Memoria DEFICIENCY 11:19:00 l VITAMIN Cable D DEFICIENCY Active Condition 04/19/2013 [facility] SHOULDER Condition Active 2013-04-19 M emoria PAIN, 11:19:00 l RIGHT SHOULDER Alex n PAIN, RIGHT Active Condition 04/19/2013 [facility] UNSPECIFIE Condition Active 2013-04-19 Memoria D 11:19:00 l ARTHROPATH Alex n Y SITE UNSPECIFIE UNSPECIFIE D D ARTHROPATH Y SITE UNSPECIFIE D Active Condition 04/19/2013 [facility] No known No known Disease Unive rs active active ity of problems problems [facility] History of Past Illness Condition Condition Condition Status Onset Resolution Last Treating Co mments Source Name Details Category Date Date Treatment Clinician Date RIGHT Condition Inactiv 2013-04-19 2013-04-19 Memoria CUBITAL e 1-13 11:19:00 11:19:00 l TUNNEL RIGHT 00:00: Cable SYNDROME CUBITAL 00 TUNNEL SYNDROME Inactive 04/18/2011 Condition 4 [facility] RIGHT Condition Inactiv 2010-042013-04-19 2013-04-19 Memoria CARPAL e 1-11 11:19:00 11:19:00 l TUNNEL RIGHT 00:00: Cable SYNDROME CARPAL 00 TUNNEL SYNDROME Inactive 02/14/2011 Condition 4 [facility] Allergies, Adverse Reactions, Alerts Allergy Allergy Status Severity Reaction(s) Onset Inactive Treating Comm ents Source Name Type Date Date Clinician Amoxicil Propensi Active Shortness of Univers courtney ty to Breath 9-07 ity of adverse 00:00: [place] reaction 00 Medical s Branch Social History Social Habit Start Date Stop Date Quantity Comments Source Exposure to Not sure University of SARS-CoV-2 [place] [facility] (event) Branch Tobacco use and 2020-12-11 2020-12-11 Never used Universit y of exposure 00:00:00 00:00:00 [facility] Alcohol intake 2020-12-11 2020-12-11 Current [facility] 00:00:00 00:00:00 non-drinker of [facility] alcohol [facility] (finding) Sex Assigned At [birth year] [facility] y of 00:00:00 00:00:00 [facility] Smoking Status Start Date Stop Date Source Never smoker [facility] Medications Ordered Filled Start Stop Current Ordering Indication Dosage Frequency Signature Comments Components Source Medication Medication Date Date Medication? Clinician (SIG) Name Name maalox:diph 2020- No 15mL 15 mL, Uni vers enhydrAMINE 12-11 Oral, ity of :lidocaine 07:30: 06:48 ONCE, 1 Fa[place]o as 2 % viscous 00 :00 dose, [facility] ical 1:1:1 12/11/20 at [facility] (FIRST-MOUT 0230, [facility]) Routine oral suspension 15 mL albuterol 2020- No 6{puff} 6 Puff, U nivers (VENTOLIN) 12-11 Inhalation it y of inhaler 6 07:30: 07:02 [place] :[place] dose, [facility] 12/11/20 at [facility] 0230, [place] NaCl 0.9% 2020- No 1000mL at 999 Uni vers (NS) bolus 12-11 mL/hr, ity of infusion 07:30: 07:44 1,000 mL, [place] as 1,000 mL 00 :00 [facility], 1 dose, Tu 12/11/20 at 0230, STAT acetaminoph 2020- No 1000mg 1,000 mg, Univers en 12-11 Oral, ity of (TYLENOL) 07:30: 06:30 ONCE, [place] tablet 00 :00 dose, [facility] 1,000 mg 12/11/20 at [facility] 0230, Routine ondansetron Yes [id number] 4mg Take 1 Univers 4 mg 12-11 tablet by ity of disintegrat 00:00: mouth [place] ing tablet 00 every 8 Medica l (eight) Branch hours as needed for Nausea and Vomiting (N/V). albuterol 2020-0 Yes [id number] 6{puff} Inhale 6 Univers 90 9-07 Puffs ity of mcg/actuati 00:00: every 4 Fa[place] as on inhaler 00 (four) Medical hours as Branch needed for Wheezing or Shortness of Breath. benzonatate 2020-0 Yes [id number] 100mg Take 1 Univers 100 mg 9-07 capsule by ity of capsule 00:00: mouth 3 [place] 00 (three) Medical times Branch daily as needed for Cough. ondansetron 2020-0 Yes [id number] 4mg Take 1 Univers 4 mg 9-07 tablet by ity of disintegrat 00:00: mouth [place] ing tablet 00 every 8 Medica l (eight) Branch hours as needed for Nausea and Vomiting (N/V). albuterol 2020-0 Yes [id number] 6{puff} Inhale 6 Univers 90 9-07 Puffs ity of mcg/actuati 00:00: every 4 Fausto as on inhaler 00 (four) Medical hours as Branch needed for Wheezing or Shortness of Breath. benzonatate 2020-0 Yes [id number] 100mg Take 1 Univers 100 mg 9-07 capsule by ity of capsule 00:00: mouth 3 (three) Medical times Branch daily as needed for Cough. carvediloL 202-0 Yes 25mg Take 25 mg U nivers (COREG) 25 7-23 by mouth 2 ity of mg tablet 21:40: (two) [place] 12 times Medical daily with Branch meals. carvediloL 2021-0 Yes 25mg Take 25 mg U nivers (COREG) 25 7-23 by mouth 2 ity of mg tablet 21:40: (two) [place] 12 times Medical daily with Branch meals. carvediloL 2021-0 Yes 25mg Take 25 mg U nivers (COREG) 25 7-23 by mouth 2 ity of mg tablet 21:40: (two) [place] 12 times Medical daily with Branch meals. amLODIPine 1-0 Yes [id number] 10mg Take 1 Un julio 10 mg 7-23 tablet by ity of tablet 00:00: mouth [place] 00 daily. Medical Branch amLODIPine 1-0 Yes [id number] 10mg Take 1 Un julio 10 mg 7-23 tablet by ity of tablet 00:00: mouth 00 daily. Medical Branch amLODIPine 1-0 Yes [id number] 10mg Take 1 Un julio 10 mg 7-23 tablet by ity of tablet 00:00: mouth 00 daily. Medical Branch gabapentin 1-0 Yes Take by Uni vers ER 300 mg 7-06 mouth ity of tablet, 15:13: daily. [place] extended 54 Medical release 24 Branch hr gabapentin 1-0 Yes Take by Uni vers ER 300 mg 7-06 mouth ity of tablet, 15:13: daily. [place] extended 54 Medical release 24 Branch hr gabapentin 2020-0 Yes Take by Uni vers ER 300 mg 7-06 mouth ity of tablet, 15:13: daily. [place] extended 54 Medical release 24 Branch hr predniSONE 1-0 Yes 5mg Take 5 mg Un julio 5 mg tablet 6-30 by mouth ity of 00:00: daily. Medical Branch torsemide 2020-0 Yes 10mg Take 10 mg Un julio 20 mg 6-30 by mouth 3 ity of tablet 00:00: (three) [place] 00 times Medical daily. Branch predniSONE 1-0 Yes 5mg Take 5 mg Un julio 5 mg tablet 6-30 by mouth ity of 00:00: daily. Medical Branch torsemide 1-0 Yes 10mg Take 10 mg Un julio 20 mg 6-30 by mouth 3 ity of tablet 00:00: (three) [place] 00 times Medical daily. Branch predniSONE 1-0 Yes 5mg Take 5 mg Un julio 5 mg tablet 6-30 by mouth ity of 00:00: daily. Medical Branch torsemide 1-0 Yes 10mg Take 10 mg Un julio 20 mg 6-30 by mouth 3 ity of tablet 00:00: (three) [place] 00 times Medical daily. Branch albuterol 2020-0 Yes INHALE 2 Univ ers 90 6-25 PUFFS BY ity of mcg/actuati 00:00: MOUTH [place] on inhaler 00 EVERY 6 Medica l HOURS Branch NEEDED FOR SHORTNESS OF BREATH albuterol 2020-0 Yes INHALE 2 Univ ers 90 6-25 PUFFS BY ity of mcg/actuati 00:00: MOUTH [place] on inhaler 00 EVERY 6 Medica l HOURS Branch NEEDED FOR SHORTNESS OF BREATH albuterol Yes INHALE 2 Univ ers 90 6-25 PUFFS BY ity of mcg/actuati 00:00: MOUTH [place] on inhaler 00 EVERY 6 Medica l HOURS Branch NEEDED FOR SHORTNESS OF BREATH RESTASIS Yes INSTILL 1 Univ ers 0.05 % 6-02 DROP INTO ity of ophthalmic 00:00: EACH EYE Fausto as drops 00 TWICE Medical DAILY Branch RESTASIS Yes INSTILL 1 Univ ers 0.05 % 6-02 DROP INTO ity of ophthalmic 00:00: EACH EYE Fausto as drops 00 TWICE Medical DAILY Branch RESTASIS Yes INSTILL 1 Univ ers 0.05 % 6-02 DROP INTO ity of ophthalmic 00:00: EACH EYE Fausto as drops 00 TWICE Medical DAILY Branch baclofen 10 Yes 10mg Take 10 mg Univers mg tablet 4-28 by mouth 3 ity of 00:00: (three) [place] 00 times Medical daily. Branch baclofen 10 Yes 10mg Take 10 mg Univers mg tablet 4-28 by mouth 3 ity of 00:00: (three) [place] 00 times Medical daily. Branch baclofen 10 Yes 10mg Take 10 mg Univers mg tablet 4-28 by mouth 3 ity of 00:00: (three) [place] 00 times Medical daily. Branch pioglitazon Yes 15mg Take 15 mg Univers e 15 mg 4-23 by mouth ity of tablet 00:00: daily. Medical Branch pioglitazon Yes 15mg Take 15 mg Univers e 15 mg 4-23 by mouth ity of tablet 00:00: daily. Medical Branch pioglitazon Yes 15mg Take 15 mg Univers e 15 mg 4-23 by mouth ity of tablet 00:00: daily. Medical Branch hydroxychlo 2014-04 Yes 200mg Take 200 U nivers roquine 0-14 mg by ity of (PLAQUENIL) 00:00: mouth [place] 200 mg 00 daily. Medical tablet Branch hydroxychlo 2014-04 Yes 200mg Take 200 U nivers roquine 0-14 mg by ity of (PLAQUENIL) 00:00: mouth [place] 200 mg 00 daily. Medical tablet Branch hydroxychlo 2014-04 Yes 200mg Take 200 U nivers roquine 0-14 mg by ity of (PLAQUENIL) 00:00: mouth [place] 200 mg 00 daily. Medical tablet Branch amLODIPine 2014-04 Yes 10mg Take 10 mg U nivers (NORVASC) 0-06 by mouth ity of 10 mg 00:00: daily. [place] tablet 00 Medical Branch amLODIPine 2014-04 Yes 10mg Take 10 mg U nivers (NORVASC) 0-06 by mouth ity of 10 mg 00:00: daily. [place] tablet 00 Medical Branch amLODIPine 2014-04 Yes 10mg Take 10 mg U nivers (NORVASC) 0-06 by mouth ity of 10 mg 00:00: daily. [place] tablet Medical Branch potassium Yes 10meq Take 10 Univ ers chloride 9-08 mEq by ity of (K-DUR) 10 00:00: mouth [place] mEq CR 00 daily. Medical tablet Branch potassium Yes 10meq Take 10 Univ ers chloride 9-08 mEq by ity of (K-DUR) 10 00:00: mouth [place] mEq CR 00 daily. Medical tablet Branch potassium Yes 10meq Take 10 Univ ers chloride 9-08 mEq by ity of (K-DUR) 10 00:00: mouth [place] mEq CR 00 daily. Medical tablet Branch fluticasone Yes 50{spra Use 50 U nivers 50 8-28 y} Sprays in ity of mcg/actuati 00:00: each [place] on nasal 00 nostril Medical spray daily. 2 Branch puffs once daily omeprazole Yes 40mg Take 40 mg U nivers (PRILOSEC) 8-28 by mouth ity o f 40 mg 00:00: daily. [place] capsule 00 Medical Branch fluticasone Yes 50{spra Use 50 U nivers 50 8-28 y} Sprays in ity of mcg/actuati 00:00: each [place] on nasal 00 nostril Medical spray daily. 2 Branch puffs once daily omeprazole Yes 40mg Take 40 mg U nivers (PRILOSEC) 8-28 by mouth ity o f 40 mg 00:00: daily. [place] capsule 00 Medical Branch fluticasone Yes 50{spra Use 50 U nivers 50 8-28 y} Sprays in ity of mcg/actuati 00:00: each [place] on nasal 00 nostril Medical spray daily. 2 Branch puffs once daily omeprazole Yes 40mg Take 40 mg U nivers (PRILOSEC) 8-28 by mouth ity o f 40 mg 00:00: daily. [place] capsule 00 Medical Branch ACCU-CHEK 2014-0 Yes daily. [employer] SANTOS PLUS 8-18 ity of TEST STRP 00:00: [place] strip 00 Medical Branch ACCU-CHEK 2014-0 Yes daily. Univer s SANTOS PLUS 8-18 ity of TEST STRP 00:00: [place] strip 00 Medical Branch ACCU-CHEK 2014-0 Yes daily. Univer s SANTOS PLUS 8-18 ity of TEST STRP 00:00: [place] strip 00 Medical Branch acetaminoph Yes 300{tbl Take 300 Univers en-codeine 8-12 } Tabs by ity of (TYLENOL 00:00: mouth as [place] #3) 300-30 00 needed. Medica l mg tablet Branch acetaminoph Yes 300{tbl Take 300 Univers en-codeine 8-12 } Tabs by ity of (TYLENOL 00:00: mouth as [place] #3) 300-30 00 needed. Medica l mg tablet Branch acetaminoph Yes 300{tbl Take 300 Univers en-codeine 8-12 } Tabs by ity of (TYLENOL 00:00: mouth as [place] #3) 300-30 00 needed. Medica l mg tablet Branch losartan Yes 100mg Take 100 Univ ers (COZAAR) 8-08 mg by ity of 100 mg 00:00: mouth [place] tablet 00 daily. Medical Branch losartan Yes 100mg Take 100 Univ ers (COZAAR) 8-08 mg by ity of 100 mg 00:00: mouth [place] tablet 00 daily. Medical Branch losartan Yes 100mg Take 100 Univ ers (COZAAR) 8-08 mg by ity of 100 mg 00:00: mouth [place] tablet 00 daily. Medical Branch SIMVASTATIN No 1 po qd Mem oria 40 MG TABS 1-14 l 11:19: Cable AMLODIPINE No 1 po qd Dev[place] bennie BESYLATE 10 1-14 l MG TABS 11:19: Cable 00 SIMVASTATIN 2014-0 No 1 po qd Mem oria 40 MG TABS 1-14 l 11:19: AMLODIPINE 2014-0 No 1 po qd [place] bennie BESYLATE 10 1-14 l MG TABS 11:19: SIMVASTATIN 2013-0 No 1 po qd Mem oria 40 MG TABS 1-14 l 11:19: AMLODIPINE 2014-0 No 1 po qd [place] bennie BESYLATE 10 1-14 l MG TABS 11:19: LASIX TABS 2014-0 Yes per other Me moria 1-14 M.D. l 00:00: GABAPENTIN 2014-0 Yes per other [place] TABS 1-14 M.D. l 00:00: HYDROXYCHLO 2014-0 Yes 1 tb po qd Memoria ROQUINE 1-14 l SULFATE 200 00:00: Alex n MG TABS 00 LASIX TABS 2014-0 Yes per other Me moria 1-14 M.D. l 00:00: GABAPENTIN 2014-0 Yes per other Me moria TABS 1-14 M.D. l 00:00: HYDROXYCHLO 2014-0 Yes 1 tb po qd Memoria ROQUINE 1-14 l SULFATE 200 00:00: Alex n MG TABS 00 LASIX TABS 2014-0 Yes per other Me moria 1-14 M.D. l 00:00: GABAPENTIN 2014-0 Yes per other Me moria TABS 1-14 M.D. l 00:00: HYDROXYCHLO 2014-0 Yes 1 tb po qd Memoria ROQUINE 1-14 l SULFATE 200 00:00: Alex n MG TABS 00 SIMVASTATIN 2011-04 No 1 po qd Mem oria 40 MG TABS 1-27 l 10:42: AMLODIPINE 2011-04 No 1 po qd Devonte bennie BESYLATE 10 1-27 l MG TABS 10:42: SIMVASTATIN 2011-04 No 1 po qd Mem oria 40 MG TABS 1-27 l 10:42: AMLODIPINE 2011-04 No 1 po qd Devonte bennie BESYLATE 10 1-27 l MG TABS 10:42: SIMVASTATIN 2011-04 No 1 po qd Mem oria 40 MG TABS 1-27 l 10:42: AMLODIPINE 2011- No 1 po qd Dev[place] bennie BESYLATE 10 1-27 l MG TABS 10:42: AMLODIPINE No 1 po qd Devonte bennie BESYLATE 10 7-26 l MG TABS 08:02: Bull 43 SIMVASTATIN No 1 po qd Mem oria 40 MG TABS 7-26 l 08:02: Cable 43 AMLODIPINE No 1 po qd Devonte bennie BESYLATE 10 7-26 l MG TABS 08:02: Bull 43 SIMVASTATIN No 1 po qd Mem oria 40 MG TABS 7-26 l 08:02: Cable 43 AMLODIPINE No 1 po qd Devonte bennie BESYLATE 10 7-26 l MG TABS 08:02: SIMVASTATIN No 1 po qd Mem oria 40 MG TABS 7-26 l 08:02: Bull 43 VITAMIN D Yes per other Mem oria [...] Alex n MG TABS 00 VITAMIN D Yes per other Mem oria [...] Alex n MG TABS 00 VITAMIN D Yes per other Mem oria [...] HCL 500 MG 1-11 l TABS 00:00: GLIPIZIDE 2010-04 Yes per other Mem [...] HCL 500 MG 1-11 l TABS 00:00: GLIPIZIDE 2010-04 Yes per other Mem [...] other Memori a 1-11 M.D. l 00:00: Bull 00 ZOLOFT TABS 2010-04 No per other M emoria 1-11 M.D. l 00:00: GLIPIZIDE 2010-04 Yes per other Mem oria TABS 1-11 M.D. l 00:00: Cable METFORMIN 2010-04 No 1 po qd Memor [...] 200 00:00: Alex n MG TABS MELOXICAM 0 No 1 tab qd Devonte bennie 15 MG TABS 4-07 w/ food l 00:00: PRN TRAMADOL 2010-0 No 1 po qd Memori a HCL 50 MG 4-07 l TABS 00:00: HYDROXYCHLO 0 No 1 tab qd Me moria ROQUINE 4-07 l SULFATE 200 00:00: Alex n MG TABS MELOXICAM 0 No 1 tab qd Devonte bennie 15 MG TABS 4-07 w/ food l 00:00: PRN TIZANIDINE No 1 tab QHS Me moria HCL 4 MG 4-07 PRN l TABS 00:00: TIZANIDINE No 1 tab QHS Me moria HCL 4 MG 4-07 PRN l TABS 00:00: TRAMADOL 0 No 1 po qd Memori a HCL 50 MG 4-07 l TABS 00:00: MELOXICAM No 1 tab qd Devonte bennie 15 MG TABS 4-07 w/ food l 00:00: PRN TIZANIDINE No 1 tab QHS Me moria HCL 4 MG 4-07 PRN l TABS 00:00: TRAMADOL 0 No 1 po qd Memori a HCL 50 MG 4-07 l TABS 00:00: HYDROXYCHLO 0 No 1 tab qd Me mor[place] ROQUINE 4-07 l SULFATE 200 00:00: Alex n MG TABS MELOXICAM 0 No 1 tab qd Devonte bennie 15 MG TABS 4-07 w/ food l 00:00: PRN TRAMADOL 0 No 1 po qd Memori a HCL 50 MG 4-07 l TABS 00:00: HYDROXYCHLO No 1 tab qd Me moria ROQUINE 4-07 l SULFATE 200 00:00: Alex n MG TABS MELOXICAM 0 No 1 tab qd Devonte bennie 15 MG TABS 4-07 w/ food l 00:00: PRN TIZANIDINE 0 No 1 tab QHS Me moria HCL 4 MG 4-07 PRN l TABS 00:00: TIZANIDINE 0 No 1 tab QHS Me moria HCL 4 MG 4-07 PRN l TABS 00:00: TRAMADOL 2010-0 No 1 po qd Memori a HCL [...] 4 MG 4-07 PRN l TABS 00:00: TIZANIDINE No 1 tab [...] 0 No 1 tab once Me moria [id number] UNIT 3-09 a week for l CAPS 00:00: two weeks VITAMIN D No 1 tab once Me moria 71309 UNIT 06-12 a week for l CAPS 00:00: two weeks VITAMIN D No 1 tab once Me moria 52368 UNIT 06-12 a week for l CAPS 00:00: two weeks VITAMIN D No 1 tab once Me moria 26168 UNIT 06-12 a week for l CAPS 00:00: two weeks VITAMIN D No 1 tab once Me moria 24745 UNIT 06-12 a week for l CAPS 00:00: two weeks VITAMIN D No 1 tab once Me [place]ia 35062 UNIT 06-12 a week for l CAPS 00:00: two weeks Immunizations Ordered Immunization Filled Immunization Date Status Commen ts Source Name Name polio vaccine #4 2011-08-29 Completed [facility] 16:08:45 Cable polio vaccine #4 2011-08-29 Completed [facility] 16:08:45 Bull polio vaccine #4 2011-08-29 Completed Memorial 16:08:45 Cable polio vaccine #4 2011-02-14 Completed Memorial 20:47:19 Bull polio vaccine #4 2011-02-14 Completed Memorial 20:47:19 Cable polio vaccine #4 2011-02-14 Completed Memorial 20:47:19 Bull Vital Signs Vital Name Observation Time Observation Value Comments Source Systolic blood 2020-12-11 07:49:02 161 mm[Hg] Univer sity of pressure [facility] Diastolic blood 2020-12-11 07:49:02 70 mm[Hg] Unive rsity of pressure [facility] Heart rate 2020-12-11 07:49:02 86 /min [facility] Body temperature 2020-12-11 07:49:[address] [facility] Respiratory rate 2020-12-11 07:49:02 19 /min [facility] Oxygen saturation in 2020-12-11 07:49:02 96 /min [facility] blood by [facility] Pulse oximetry Branch Body height 2020-12-11 06:05:00 176.5 cm [facility] Body weight 2020-12-11 06:05:00 102.967 kg [facility] BMI 2020-12-11 06:05:00 33.04 kg/m2 [facility] Height 2013-04-19 16:42:10 [facility] Systolic (mm Hg) 2013-04-19 16:42:10 Devonte rial Bull Diastolic (mm Hg) 2013-04-19 16:42:10 Mem orial Bull Heart Rate 2013-04-19 16:42:10 [facility] Systolic (mm Hg) 2011-01-16 16:53:41 Devonte rial Bull Diastolic (mm Hg) 2011-01-16 16:53:41 Mem orial Cable Heart Rate 2011-01-16 16:53:41 [facility] Systolic (mm Hg) 2010-07-11 13:20:54 Devonte rial Cable Diastolic (mm Hg) 2010-07-11 13:20:54 Mem orial Cable Heart Rate 2010-07-11 13:20:54 [facility] Diastolic (mm Hg) 2009-11-28 13:10:48 Mem orial Bull Heart Rate 2009-11-28 13:10:48 [facility] Weight 2009-11-28 13:10:48 [facility] Systolic (mm Hg) 2009-11-28 13:10:48 Devonte rial Bull Height 2009-06-07 16:58:43 [facility] Bull Weight 2009-06-07 16:58:43 [facility] Systolic (mm Hg) 2009-06-07 16:58:43 Devonte rial Cable Diastolic (mm Hg) 2009-06-07 16:58:43 Mem orial Cable Heart Rate 2009-06-07 16:58:43 [facility] Procedures Procedure Date / Time Performing Clinician Source Performed TROPONIN I 2020-12-11 06:37:00 Devi Fuentes [facility] COMP. METABOLIC PANEL 2020-12-11 06:37:00 Devi Fuentes [facility] ([id number] CBC WITH DIFF 2020-12-11 06:37:00 Devi Fuentes [facility] COVID-19 (ID NOW RAPID 2020-12-11 06:35:00 Devi Fuentes [facility] genitourinary review of 2009-06-07 16:58:43 Devonte Gottlieb [facility]M Encounters Start End Encounter Admission Attending Care Care Encounter Source Date/Time Date/Time Type Type Clinicians Facility Department ID 2020-12-11 2020-12-11 Emergency Alfredo [facility] [id number] Univers 01:00:00 03:03:00 Devi Freeman [id number] ity of [id number] [id number] [facility] 084 Branch 2020-12-11 2020-12-11 Letter MAULIK Hamilton [id number] Univers 00:00:00 00:00:00 (Out) Pamela Aric BURDENY [id number] it y of [facility] [id number] Fa[place] as [id number] [facility] 019 Branch 2020-12-08 2020-12-08 Laboratory Only, Ang Db Test [facility] [id number] Univers 12:59:14 13:09:14 Only [facility] [id number] ity of [place] [id number] Fausto as Migue?Blea [id number] [address] Office [facility] 2020-08-01 2020-08-01 Office RAUL Enriquez [id number] 09:09:11 12:28:15 Visit Kayleen AMBULATOR [id number] Javier Y [id number] [id number] 2020-07-02 2020-07-02 Office RAUL Soliman [id number] 08:50:02 09:20:02 Visit Albin AMBULATOR [id number] Vinnie Y [id number] [id number] 2020-06-28 2020-06-28 Office RAUL Laura [id number] 09:53:30 10:13:30 Visit Rocky Caldwell AMBULATOR [id number] Y [id number] [id number] 2020-06-25 2020-06-25 Office Denisse RAUL [id number] 09:30:00 10:00:00 Visit Bridget Morfin AMBULATOR [id number] Win Y [id number] [id number] 2020-04-16 2020-04-16 Office Jourdan DOREENGavi [id number] 10:00:07 10:34:47 Visit Albin AMBULATOR [id number] Vinnie Y 0.2.7.2.686 [id number] 2020-02-20 2020-02-20 Office JourdanRAUL [id number] 10:40:33 11:12:10 Visit Albin AMBULATOR [id number] Vinnie Y 0.2.7.2.686 [id number] 2020-02-20 2020-02-20 Office Zoe, RAUL [id number] 09:36:09 10:06:09 Visit Kayleen AMBULATOR [id number] Javier Y [id number] [id number] 2020-01-09 2020-01-09 Office RAUL Enriquez [id number] 08:08:09 10:16:20 Visit Kayleen AMBULATOR [id number] Javier Y 0.2.7.2.686 [id number] 2019-12-19 2019-12-19 Office Jourdan, DOREENGavi [id number] 08:46:04 09:46:04 Visit Albin AMBULATOR [id number] Vinnie Y 0.2.7.2.686 [id number] 2013-04-19 2013-04-19 [id number] [id number] Memoria 00:00:00 00:00:00 r Bone & [id number] l [facility] 2013-04-19 2013-04-19 Lab Report nullIbetho Gee 1705 [id number] Memoria 00:00:00 00:00:00 r Bone & [id number] l [facility] 2012-09-01 2012-09-01 Lab Report nullFlavo Gee 1685 [id number] Memoria 00:00:00 00:00:00 r Bone & [id number] l [facility] 2012-09-01 2012-09-01 Lab Report nullFlavo Gee 1685 [id number] Memoria 00:00:00 00:00:00 r Bone & [id number] l [facility] 2012-03-02 2012-03-02 Lab Report nullIbetho Gee 1669 [id number] Memoria 00:00:00 00:00:00 r Bone & [id number] l [facility] 2012-03-02 2012-03-02 Lab Report nullIbetho Gee 1669 [id number] Memoria 00:00:00 00:00:00 r Bone & [id number] l [facility] 2011-10-30 2011-10-30 Office nullIbetho Gee [id number] Memoria 00:00:00 00:00:00 Visit r Office [id number] [facility] 2011-10-30 2011-10-30 Office Antwano Gee [id number] Memoria 00:00:00 00:00:00 Visit r Office [id number] l [facility] 2011-10-29 2011-10-29 Lab Report nullIbetho Gee 1658 [id number] Memoria 00:00:00 00:00:00 r Bone & [id number] l [facility] 2011-10-29 2011-10-29 Lab Report nullFlavo Gee [id number] Memoria 00:00:00 00:00:00 r Bone & [id number] l [facility] 2011-08-29 2011-08-29 Office Antwano Gee [id number] Memoria 00:00:00 00:00:00 Visit r Office [id number] kofi [facility] 2011-08-29 2011-08-29 Office Antwano Gee [id number] Memoria 00:00:00 00:00:00 Visit r Office [id number] kofi [facility] 2011-07-01 2011-07-01 Lab Report Connie Segovia [id number] Memoria 00:00:00 00:00:00 r BONE AND [id number] l [facility] 2011-07-01 2011-07-01 Lab Report Connie Segovia [id number] Memoria 00:00:00 00:00:00 r BONE AND [id number] l [facility] 2011-06-20 2011-06-20 Lab Report Connie Casillas [id number] Memoria 00:00:00 00:00:00 r BONE AND [id number] l [facility] 2011-06-20 2011-06-20 Office nullFlavo Stella [id number] Memoria 00:00:00 00:00:00 Visit r Office [id number] l [facility] 2011-06-20 2011-06-20 Lab Report Connie Casillas [id number] Memoria 00:00:00 00:00:00 r BONE AND [id number] l [facility] 2011-06-20 2011-06-20 Office nullFlavo Stella [id number] Memoria 00:00:00 00:00:00 Visit r Office [id number] [facility] Results Test Description Test Time Test Comments Results Result Comments Source TROPONIN I 2020-12-11 07:29:58 Test Item Value Reference Range Interpretation Comme nts TROPONIN I (test code = 0.029 ng/mL See_Comment [Au tomated message] The [id number]) system which ge nerated this result tra nsmitted reference range : <=0.034. The reference r marcos was not used to int erpret this result as normal/abnormal . SKYLAR (test code = SKYLAR) Reference (Normal) Range (defined by the 99th percentile reference limit): <= 0.034 ng/mL Note: Cardiac troponin begins to rise 3-4 hours after the onset of ischemia. Repeat in 4-6 hours if the sample was drawn within 3-4 hours of the onset of the symptom and found normal. Diagnosis of myocardial injury is made with acute changes in cTn concentrations with at least one serial sample above the 99th percentile upper reference limit (URL), taken together with the patient's clinical presentation. Biotin has been reported to cause a negative bias, interpret results relative to patient's use of biotin. Lab Interpretation Normal (test code = 51906-6) [facility] METABOLIC PANEL (75873)2020-12-11 07:18:58 Test Item Value Reference Range Interpretation Comments NA (test code = 137 mmol/L 135-145 9298933408) K (test code = 3.6 mmol/L 3.5-5.0 5644653701) CL (test code = 102 mmol/L 98-108 9500007963) CO2 TOTAL (test code = 25 mmol/L 23-31 6736461628) AGAP (test code = 2-16 4623897674) BUN (test code = 18 mg/dL 7-23 8522460751) GLUCOSE (test code = 115 mg/dL 70-110 H 8580265314) CREATININE (test code = 1.80 mg/dL 0.50-1.04 H 1794743799) TOTAL BILI (test code = 1.1 mg/dL 0.1-1.8 7880267225) CALCIUM (test code = 9.1 mg/dL 8.6-10.6 5970942795) T PROTEIN (test code = 8.1 g/dL 6.3-8.2 1475504892) ALBUMIN (test code = 4.4 g/dL 3.5-5.0 9569073684) ALK PHOS (test code = 52 U/L 34-122 2407497350) ALTv (test code = 30 U/L 5-35 1742-6) AST(SGOT) (test code = 57 U/L 13-40 H 9833581668) eGFR (test code = mL/min/1.73m2 0897582738) SKYLAR (test code = SKYLAR) Association of Glomerular Filtration Rate (GFR) and Staging of Kidney Disease* + --+ --+ ------+| GFR (mL/min/1.73 m2) ?| With Kidney Damage ?| ?Without Kidney Damage+ --------+ --------+ +| ?>90 ?| ?Stage one ?| ? Normal ?+ ---+ ---+ -------+| ?60-89 ?| ?Stage two ?| ? Decreased GFR ? + --+ --+ ------+| ?30-59 ?| ?Stage three ?| ? Stage three ? + --+ --+ ------+| ?15-29 ?| ?Stage four ? | ? Stage four ?+ ---+ ---+ -------+| ?<15 (or dialysis) ? ?| ?Stage five ? | ? Stage five ?+ ---+ ---+ -------+ *Each stage assumes the associated GFR level has been in effect for at least three months. ?Stages 1 to 5, with or without kidney disease, indicate chronic kidney disease. Notes: Determination of stages one and two (with eGFR >59mL/min/1.73 m2) requires estimation of kidney damage for at least three months as defined by structural or functional abnormalities of the kidney, manifested by either:Pathological abnormalities or Markers of kidney damage (including abnormalities in the composition of the blood or urine or abnormalities in imaging tests). Lab Interpretation Abnormal (test code = 58868-4) [facility] (ID NOW RAPID TESTING)2020-12-11 06:56:56 Test Item Value Reference Range Interpretation Comments SARS-CoV-2 Rapid ID NOW Positive Not Detected A (test code = 78557-1) SKYLAR (test code = SKYLAR) ID NOW COVID-19 Assay is an isothermal nucleic acid amplification test intended for the qualitative detection of nucleic acid from SARS-CoV-2 viral RNA in nasopharyngeal (CMO & PRESIDENT) specimens. It is used under Emergency Use Authorization (EUA) by FDA. The limit of detection (LOD) of the assay is 125 Genome Equivalents/mL. A positive result is indicative of the presence of SARS-CoV-2 RNA. ?Clinical correlation with patient history and other diagnostic information is necessary to determine patient infection status. A negative (Not Detected) result does not preclude SARS-CoV-2 infection. In patients with clinical symptoms and other tests that are consistent with SARS-CoV-2 infection, negative results should be treated as presumptive negative and a new specimen should be tested with alternative PCR molecular test. Invalid: Please collect a new specimen for repeat patient testing if clinically indicated. Lab Interpretation Abnormal (test code = 22238-5) [facility] WITH PXFH1755-02-30 06:53:00 Test Item Value Reference Range Interpretation Comments WBC (test code = See_Comment L [Automated 6690-2) message] The sy stem which generated this result transmitted reference range : 4.30 - 11.10 10*3/?L. The reference range was not used to interpret this result as normal/abnormal . RBC (test code = See_Comment [Automated 789-8) message] The sy stem which generated this result transmitted reference range : 3.93 - 5.25 10*6/?L. The reference range was not used to interpret this result as normal/abnormal . HGB (test code = 12.0 g/dL 11.6-15.0 718-7) HCT (test code = 36.3 % 35.7-45.2 4544-3) MCV (test code = 79.6 fL 80.6-95.5 L 787-2) MCH (test code = 26.3 pg 25.9-32.8 785-6) MCHC (test code = 33.1 g/dL 31.6-35.1 786-4) RDW-SD (test code = 37.1 fL 39.0-49.9 L 48493-3) RDW-CV (test code = 13.0 % 12.0-15.5 788-0) PLT (test code = See_Comment L [Automated 777-3) message] The sy stem which generated this result transmitted reference range : 166 - 358 10*3/ ?L. The reference r marcos was not used to interpret this result as normal/abnormal . MPV (test code = 10.6 fL 9.5-12.9 91983-3) IPF % (test code = 2.4 % 1.3-7.7 Platelet count 4869063951) measured by fluorescence method. NRBC/100 WBC (test See_Comment [Automat ed code = 4578187026) message] The system which generated this result transmitted reference range : 0.0 - 10.0 /100 WBCs. The refer ence range was not u sed to interpret th is result as normal/abnormal . NRBC x10^3 (test code <0.01 See_Comment [Auto mated = 0448133221) message] The s ystem which generated this result transmitted reference range : 10*3/?L. The reference range was not used to interpret this result as normal/abnormal . GRAN MAT (NEUT) % 85.3 % (test code = 770-8) IMM GRAN % (test code 0.50 % = 4937155462) LYMPH % (test code = 8.8 % 736-9) MONO % (test code = 5.4 % 5905-5) EOS % (test code = 0.0 % 713-8) BASO % (test code = 0.0 % 706-2) GRAN MAT x10^3(ANC) 3.30 10*3/uL 1.88-7.09 (test code = 7196093537) IMM GRAN x10^3 (test <0.03 0.00-0.06 code = 2075396723) LYMPH x10^3 (test code 0.34 10*3/uL 1.32-3.29 L = 731-0) MONO x10^3 (test code 0.21 10*3/uL 0.33-0.92 L = 742-7) EOS x10^3 (test code = <0.03 0.03-0.39 L 711-2) BASO x10^3 (test code <0.03 0.01-0.07 = 704-7) Lab Interpretation Abnormal (test code = 33157-4) [facility]istry2013-05-30 14:30:00<1.0 mg/L [facility] JdtuzjmXkfzpgmuk8783-19-03 14:30:00<1.0 mg/L[facility] Ubjkvlrmu8861-95-44 14:30:00<1.0 mg/LMemorial KsqytrbVdjpmryhkj5480-93-62 11:43:0024[facility] PwdhmwfAdgsmujeux1963-85-78 11:43:0024[facility] Cwxcfvwhrb3469-06-86 11:43:0024[facility] RwqnixyRivqpwrjzt3160-00-83 10:33:0012.4 [facility] LocepnfQinalrmvns4061-44-63 10:33:0037.0[facility] 2012-09-02 10:33:32984 X10E3/ULMemorial OuluqnaDpmipwdnfn5330-60-63 10:33:0012.4 [facility] ZfqoagqBhacmplwhf1525-39-80 10:33:0037.0[facility] 2012-09-02 10:33:21325 X10E3/ULMemorial CznoynyNyfnezikpv1532-60-80 10:33:0012.4 [facility] KborfatGrdoceclbt4725-51-77 10:33:0037.0[facility] 2012-09-02 10:33:20375 X10E3/ULMemorial TraebcgWkvpwezzjv7552-30-23 10:46:0012.4 [facility] YppuxcpIymwkyuqpi3021-56-91 10:46:0037.6[facility] 2011-07-02 10:46:56179 X10E3/ULMemorial HuolfupRsoxrriutj4841-77-32 10:46:0012.4 [facility] XekmvdsLcjrkrnzit3333-43-32 10:46:0037.6[facility] 2011-07-02 10:46:25937 X10E3/ULMemorial YllipeaLwrbphusac5008-81-25 10:46:0012.4 [facility] UxsjcsiXiplavdels7906-52-57 10:46:0037.6[facility] 2011-07-02 10:46:43989 X10E3/ULMemorial DerwbgcYequoqepe3637-92-10 06:34:000.97 [facility] BnexducWmhkonbda4578-11-98 06:34:000.97[facility] 2011-07-02 06:34:000.97[facility] ChxojopIsnogxvau9147-69-76 06:34:000.97[facility] AgdrdlgPlmcmbdhr7980-95-09 06:34:000.97[facility] MljppekDjgtvcnfs5236-83-51 06:34:000.97[facility] OqrinnhTpjekoqeou2564-63-32 07:25:0012.2[facility] Keejodekyk1489-89-98 07:25:0012.2[facility] XttznqhLrdzhaaqdw5172-31-63 07:25:00 38.0[facility] RtaxqrfXcihjyyemu7385-11-22 07:25:55283 X10E3/ULMem[facility] Cable Ljqjndyzhx2828-95-73 07:25:0038.0[facility] HvopybwMmzdsyined3164-32-80 07:25:00 255 X10E3/ULMemorial VtlohngLpqoldvzii5177-87-57 07:25:0012.2[facility] Sajtxkdjbf0343-71-56 07:25:0038.0[facility] MdqekfnLzmgocytdn2415-66-66 07:25:00 255 X10E3/ULMemorial GholezsZncksogxu2437-81-78 07:04:000.97[facility] Blflfbvdc0075-09-06 07:04:000.97[facility] SftevdxJuaxfgshk0808-25-29 07:04:000.97 [facility] OwhsnyvRfiddynok2647-43-50 07:04:000.97[facility] 2011-03-08 07:04:000.97[facility] RzkurvtTvrxxqlgv2005-17-09 07:04:000.97[facility] CipirvmPojswnjjb6692-81-47 07:04:000.97[facility] KqtfnhsJigpsfvdp3621-05-43 07:04:000.97[facility] RwimwsvSuwlyphgk1999-72-70 07:04:000.97[facility]"
[2020-12-12] MEDS ORDERED: ONDANSETRON 4 MG/2 ML VIAL ONE (07:53)
[2020-12-12] MEDS ORDERED: NA CHLORIDE 0.9% 250 ML ONE (07:53)
[2020-12-12] MEDS ORDERED: ACETAMINOPHEN 500 MG TAB ONE (07:53)
[2020-12-12] MEDS ORDERED: CASIRIVIMAB/IMDEVIMAB 10 ML VIAL ONE (07:54)
--- NOTE | 2020-12-12 07:56 | RAD REPORT ---
EXAM DESCRIPTION: Cindy Single View12/12/2020 6:42 am CLINICAL HISTORY: Cough COMPARISON: 2019 FINDINGS: Lungs are mildly hazy. The heart is normal size IMPRESSION: Lungs are mildly hazy which may indicate mild bilateral pneumonia
--- NOTE | 2020-12-12 08:40 | EDPHYS ---
Physician Documentation [facility] Name: Izabela Minor Age: 70 yrs Sex: Female : 1950 Arrival Date: 12/12/2020 Time: 06:22 Bed 17 Private MD: ED Physician Kennedy Meyer HPI: 12/12 07:05 This 70 yrs old Black Female presents to ER via EMS with complaints of shortness of kb breath. 07:05 The patient or guardian reports cough, that is intermittent, described as mild, kb difficulty breathing. Onset: The symptoms/episode began/occurred 5 day(s) ago. Severity of symptoms: At their worst the symptoms were moderate, in the emergency department the symptoms are unchanged. Modifying factors: The symptoms are alleviated by nothing, the symptoms are aggravated by nothing. Associated signs and symptoms: The patient has no apparent associated signs or symptoms. The patient has not experienced similar symptoms in the past. The patient has been recently seen by a physician: the ER physician, out of Town. Pt states she has had shortness of breath and cough for 5 days. Went to [place] ER last night and tested positive for COVID. States she has an appt to have Regeneron infusion on . Came in this morning for shortness of breath. O2 sat 95-97% on room air. Pt requests Regeneron infusion today. Historical: - Allergies: 06:28 Amoxicillin (Anaphylaxis); bs2 06:31 Sulfa (Sulfonamide Antibiotics); bs2 - Home Meds: 06:31 actose inj for diabetes [Active]; carvedilol 25 mg Oral tab 1 tab 2 times per day bs2 [Active]; gabapentin 300 mg Oral cap daily [Active]; losartan Oral [Active]; torsemide Oral [Active]; Aspirin Oral [Active]; Prednisone Oral [Active]; Albuterol Inhl [Active]; - PMHx: 06:31 Bipolar disorder; Diabetes - IDDM; High Cholesterol; Hypertension; Rheumatoid bs2 Arthritis; sarcoidosis; - PSHx: 06:28 Tubal; renal cyst removal; polyps on uterus; bs2 - Immunization history:: Client reports receiving the Jonathon \T\ Jonathon single-dose vaccine. Date received July 2020. - Social history:: Smoking status: unknown. ROS: 07:04 Constitutional: Negative for fever, chills, and weight loss. kb 07:04 Respiratory: Positive for cough, shortness of breath, Negative for hemoptysis, orthopnea, pleurisy, sputum production, wheezing. 07:04 All other systems are negative. Exam: 07:04 Constitutional: This is a well developed, well nourished patient who is awake, alert, kb and in no acute distress. Head/Face: Normocephalic, atraumatic. ENT: Moist Mucous membranes Cardiovascular: Regular rate and rhythm with a normal S1 and S2. No gallops, murmurs, or rubs. No pulse deficits. Respiratory: Respirations even and unlabored. No increased work of breathing, no retractions or nasal flaring. Skin: Warm, dry with normal turgor. Normal color. MS/ Extremity: Pulses equal, no cyanosis. Neurovascular intact. Full, normal range of motion. Neuro: Awake and alert, GCS 15, oriented to person, place, time, and situation. Moves all extremities. Normal gait. Psych: Awake, alert, with orientation to person, place and time. Behavior, mood, and affect are within normal limits. Vital Signs: 06:25 BP 165 / 79; Pulse 82; Resp 20; Temp 100.9(O); Pulse Ox 96% on R/A; Weight 102.97 kg; bs2 Height 5 ft. 9 in. (175.26 cm); Pain 10/10; 07:00 BP 174 / 68; Pulse 88; Resp 17; Pulse Ox 95% ; bp 08:00 BP 148 / 58; Pulse 83; Resp 16; Pulse Ox 94% ; bp 09:00 BP 142 / 60; Pulse 81; Resp 19; Pulse Ox 94% on R/A; bp 11:00 BP 147 / 62; Pulse 85; Resp 17; Pulse Ox 95% ; bp 06:25 Body Mass Index 33.52 (102.97 kg, 175.26 cm) bs2 MDM: 06:25 Patient medically screened. kb 07:04 Data reviewed: vital signs, nurses notes. Data interpreted: Pulse oximetry: on room air kb is 96 %. Interpretation: normal. Counseling: I had a detailed discussion with the patient and/or guardian regarding: the historical points, exam findings, and any diagnostic results supporting the discharge/admit diagnosis, radiology results, the need for outpatient follow up, a family practitioner, to return to the emergency department if symptoms worsen or persist or if there are any questions or concerns that arise at home. 12/12 06:32 Order name: Chest Single View XRAY; Complete Time: 07:57 kb 12/12 07:03 Order name: IV Start; Complete Time: 07:59 kb 12/12 08:40 Order name: Vital Signs; Complete Time: 08:41 kb Administered Medications: 07:30 Drug: Tylenol 1000 mg Route: PO; bp 09:10 Follow up: Response: No adverse reaction bp 07:50 Drug: REGEN-COV Dose Pack 120 mg/mL-120 mg/mL (EUA) 1 application Route: IV; Rate: bp calculated rate; Site: left wrist; 07:50 Drug: Zofran (Ondansetron) 4 mg Route: IVP; Site: left wrist; bp 09:10 Follow up: Response: No adverse reaction bp Disposition: 22:24 Co-signature as Attending Physician, Kennedy Meyer MD I agree with the assessment and rn plan of care. Attestation: The patient's history, exam findings, diagnostics, and a summary of any interventions or procedures was reviewed in detail with Emely FOWLER. Disposition Summary: 12/12/20 08:40 Discharge Ordered Location: Home kb Condition: Stable kb Diagnosis - Coronavirus infection, unspecified kb - Pneumonia due to SARS-associated coronavirus kb Followup: kb - With: Emergency Department - When: As needed - Reason: Worsening of condition Followup: kb - With: Private Physician - When: 2 - 3 days - Reason: Recheck today's complaints, Continuance of care, Re-evaluation by your physician Discharge Instructions: - Discharge Summary Sheet kb - COVID-19 kb - COVID-19 Frequently Asked Questions kb - 10 Things You Can Do to Manage Your COVID-19 Symptoms at Home - [facility] kb Forms: - Medication Reconciliation Form kb - Thank You Letter kb - Antibiotic Education kb - Prescription Opioid Use kb Signatures: Dispatcher [employer] EDMS Emely Smyth FNP-C FNP-Kennedy Austin MD MD rn Peltier, Brian, RN RN bp Smith, Bridget RN RN bs2 Corrections: (The following items were deleted from the chart) 07: 07:05 Pt states she has had shortness of breath and cough for 5 days. Went to [facility] ER last night and tested positive for COVID. States she has an appt to have Regeneron infusion on . Came in this morning for shortness of breath. O2 sat 95-97% on room air. . kb
--- NOTE | 2020-12-12 08:40 | ER ---
Nurse's Notes [facility] Name: Izabela Minor Age: 70 yrs Sex: Female : 1950 Arrival Date: 12/12/2020 Time: 06:22 Bed 17 Private MD: Diagnosis: Coronavirus infection, unspecified;Pneumonia due to SARS-associated coronavirus Presentation: 12/12 06:25 Chief complaint: Patient states: SOB, nausea and pain, Covid positive seen at [place] [address] ER yesterday evening. Coronavirus screen: At this time, unable to obtain information related to previous covid testing. Client reports previous positive COVID test result. Date of collection: December 11, 2020. Ebola Screen: No symptoms or risks identified at this time. Initial Sepsis Screen: Does the patient meet any 2 criteria? No. Patient's initial sepsis screen is negative. Does the patient have a suspected source of infection? No. Patient's initial sepsis screen is negative. Risk Assessment: Do you want to hurt yourself or someone else? Patient reports no desire to harm self or others. Onset of symptoms was December 08, 2020. 06:25 Method Of Arrival: EMS: [facility] 06:25 Acuity: NIYA 3 bs2 Triage Assessment: 06:28 General: Appears in no apparent distress. uncomfortable, obese, Behavior is bs2 cooperative, anxious. Pain: Complains of pain in diaphragm. Historical: - Allergies: 06:28 Amoxicillin (Anaphylaxis); bs2 06:31 Sulfa (Sulfonamide Antibiotics); bs2 - Home Meds: 06:31 actose inj for diabetes [Active]; carvedilol 25 mg Oral tab 1 tab 2 times per day bs2 [Active]; gabapentin 300 mg Oral cap daily [Active]; losartan Oral [Active]; torsemide Oral [Active]; Aspirin Oral [Active]; Prednisone Oral [Active]; Albuterol Inhl [Active]; - PMHx: 06:31 Bipolar disorder; Diabetes - IDDM; High Cholesterol; Hypertension; Rheumatoid bs2 Arthritis; sarcoidosis; - PSHx: 06:28 Tubal; renal cyst removal; polyps on uterus; bs2 - Immunization history:: Client reports receiving the Jonathon \T\ Jonathon single-dose vaccine. Date received July 2020. - Social history:: Smoking status: unknown. Screenin:41 Abuse screen: Denies threats or abuse. Denies injuries from another. Nutritional bs2 screening: No deficits noted. Tuberculosis screening: No symptoms or risk factors identified. Fall Risk None identified. Assessment: 06:41 General: Appears in no apparent distress. uncomfortable, obese, well nourished, bs2 Behavior is cooperative, anxious. Pain: Complains of pain in diaphragm Pain currently is 10 out of 10 on a pain scale. Neuro: No deficits noted. Cardiovascular:. Respiratory: Airway is patent Trachea midline Respiratory effort is even, unlabored, Respiratory pattern is regular, symmetrical. GI: Reports diarrhea. 07:00 Reassessment: RECD REPORT FROM CANDELARIA GARCIA. 70YO BF P/W COVID AND SOB. RESP DIM BLL. bp 07:30 Reassessment: REGEN-COV INFUSION STARTED. bp 08:30 Reassessment: D/C ON HOLD FOR IV COMPLETION. bp 09:30 Reassessment: REGEN-COV COMPLETED. OBS PERIOD STARTED. bp 11:00 Reassessment: OBS PERIOD ENDED. PT D/C HOME VIA W/C WITH FAMILY. bp Vital Signs: 06:25 BP 165 / 79; Pulse 82; Resp 20; Temp 100.9(O); Pulse Ox 96% on R/A; Weight 102.97 kg; bs2 Height 5 ft. 9 in. (175.26 cm); Pain 10/10; 07:00 BP 174 / 68; Pulse 88; Resp 17; Pulse Ox 95% ; bp 08:00 BP 148 / 58; Pulse 83; Resp 16; Pulse Ox 94% ; bp 09:00 BP 142 / 60; Pulse 81; Resp 19; Pulse Ox 94% on R/A; bp 11:00 BP 147 / 62; Pulse 85; Resp 17; Pulse Ox 95% ; bp 06:25 Body Mass Index 33.52 (102.97 kg, 175.26 cm) bs2 ED Course: 06:22 Patient arrived in ED. tt3 06:25 Emely Smyth FNP-C is [facility]. kb 06:25 Kennedy Meyer MD is Attending Physician. kb 06:28 Triage completed. bs2 06:28 Arm band placed on right wrist. bs2 06:41 Patient has correct armband on for positive identification. Bed in low position. Call bs2 light in reach. Side rails up X2. Pulse ox on. NIBP on. Door closed. Noise minimized. Warm blanket given. 06:42 Chest Single View XRAY In Process Unspecified. EDMS 07:18 Destin Duval, RN is Primary Nurse. bp 07:59 Inserted saline lock: 20 gauge in left wrist, using aseptic technique. bp 11:12 No provider procedures requiring assistance completed. IV discontinued. bp Administered Medications: 07:30 Drug: Tylenol 1000 mg Route: PO; bp 09:10 Follow up: Response: No adverse reaction bp 07:50 Drug: REGEN-COV Dose Pack 120 mg/mL-120 mg/mL (EUA) 1 application Route: IV; Rate: bp calculated rate; Site: left wrist; 07:50 Drug: Zofran (Ondansetron) 4 mg Route: IVP; Site: left wrist; bp 09:10 Follow up: Response: No adverse reaction bp Outcome: 08:40 Discharge ordered by . kb 10:53 Patient left the ED. bp 11:00 Discharged to home via wheelchair, with family. bp 11:00 Condition: stable 11:00 Discharge instructions given to patient, Instructed on discharge instructions, follow up and referral plans. Demonstrated understanding of instructions, follow-up care. Signatures: Dispatcher [employer] EDMS Emely Smyth, TAKER DOWN-C TAKER DOWN-Ckb Destin Duval, RN RN bp Mathieu Garcia tt3 Lida Rao RN RN bs2 Corrections: (The following items were deleted from the chart) 06:39 06:25 BP 165 / 79; Pulse 82bpm; Resp 20bpm; Pulse Ox 96% RA; 102.97 kg; Height 5 ft. 9 bs2 in.; BMI: 33.5; Pain 10/10; bs2
[2020-12-12 11:01] VITALS: TEMP 100.9
[2020-12-12 11:04] VITALS: O2SAT 94
[2020-12-12 11:06] VITALS: BP 142/60
== END 2020-12-12 10:53 | disposition home or self-care (01) ==
LOC: ER 06:12
DX: U07.1 COVID-19 (principal); J12.82 Pneumonia due to coronavirus disease 2019; Z88.2 Allergy status to sulfonamides; Z88.1 Allergy status to other antibiotic agents; E11.9 Type 2 diabetes mellitus without complications; I10 Essential (primary) hypertension; M06.9 Rheumatoid arthritis, unspecified; F31.9 Bipolar disorder, unspecified
CPT/HCPCS: 71045; 96375; 96374; 99284; J7050; J2405

== ENCOUNTER 2021-02-16 13:52 | Emergency (ER) | payer MEDICARE, OTHER ==
--- NOTE | 2021-02-16 14:43 | ER ---
Nurse's Notes [facility] Name: Izabela Minor Age: 70 yrs Sex: Female : 1950 Arrival Date: 02/16/2021 Time: 13:53 Bed 11 Private MD: Josh Driscoll E Diagnosis: sinus congestion Presentation: 02/16 14:08 Chief complaint: Patient states: Sinus drainage and CHARITY ear pain x 3 weeks. Pt is vg1 currently taking an antibiotic by PCP bc 'was spitting up yellow mucous'. States that the mucous is "getting stuck in throat and its choking me". Coronavirus screen: Vaccine status: Patient reports receiving the 1st dose of the Covid vaccine. Client denies travel out of the [place] in the last 14 days. Ebola Screen: Patient negative for fever greater than or equal to 101.5 degrees Fahrenheit, and additional compatible Ebola Virus Disease symptoms. Initial Sepsis Screen: Does the patient meet any 2 criteria? No. Patient's initial sepsis screen is negative. Does the patient have a suspected source of infection? No. Patient's initial sepsis screen is negative. Risk Assessment: Do you want to hurt yourself or someone else? Patient reports no desire to harm self or others. Onset of symptoms was February 02, 2021. 14:08 Method Of Arrival: Ambulatory vg1 14:08 Acuity: NIYA 4 vg1 Triage Assessment: 14:15 General: Appears in no apparent distress. comfortable, Behavior is calm, cooperative. vg1 Pain: Complains of pain in head Pain currently is 8 out of 10 on a pain scale. Historical: - Allergies: 14:15 Sulfa (Sulfonamide Antibiotics); vg1 14:15 Amoxicillin (Anaphylaxis); vg1 - Home Meds: 14:15 losartan Oral [Active]; gabapentin 300 mg Oral cap daily [Active]; carvedilol 25 mg vg1 Oral tab 1 tab 2 times per day [Active]; Aspirin Oral [Active]; Albuterol Inhl [Active]; - PMHx: 14:15 Bipolar disorder; Diabetes - IDDM; High Cholesterol; Hypertension; Rheumatoid vg1 Arthritis; sarcoidosis; - PSHx: 14:15 polyps on uterus; renal cyst removal; tubal; vg1 - Immunization history:: Client reports receiving the Jonathon \\T\\ Jonathon single-dose vaccine. - Social history:: Smoking status: Patient denies any tobacco usage or history of. Assessment: 14:43 Reassessment: Pt. was seen and assessed by Nurse Practitioner Emely before RN could jt3 meet patient. Pt. was discharged before cook chill technician. Pt. left without paperwork. RN went in room and no patient was in room. Emely JAVA DEVELOPER ANALYST stated he discharge her. Vital Signs: 14:08 BP 144 / 74; Pulse 66; Resp 18; Temp 97.9; Pulse Ox 100% ; Weight 102.06 kg; Height 5 vg1 ft. 9 in. (175.26 cm); Pain 8/10; 14:08 Body Mass Index 33.23 (102.06 kg, 175.26 cm) vg1 ED Course: 13:53 Patient arrived in ED. as 13:54 Josh Driscoll MD is Private Physician. as 14:12 Emely mSyth FNP-C [facility]. kb 14:12 Mitchell Carbajal MD is Attending Physician. kb 14:15 Triage completed. vg1 14:15 Arm band placed on. vg1 14:42 Dionisio Mata, RADHA is Primary Nurse. jt3 Administered Medications: No medications were administered Outcome: 14:42 Discharge ordered by . kb 14:51 Discharged to home ambulatory. jt3 14:51 Condition: Please see Emely JIMENEZ note for discharge condition and assessment. 14:51 Discharge instructions given to patient, Given by Emely JIMENEZ. 15:03 Patient left the ED. jt3 Signatures: Emely Smyth FNP-C FNP-Gwen Segal Victoria, RN RN vg1 Dionisio Mata RN RN jt3
--- NOTE | 2021-02-16 14:43 | EDPHYS ---
Physician Documentation [facility] Name: Izabela Phillips Age: 70 yrs Sex: Female : 1950 Arrival Date: 02/16/2021 Time: 13:53 Bed 11 Private MD: Josh Driscoll E ED Physician Mitchell Carbajal HPI: 02/16 14:34 This 70 yrs old Black Female presents to ER via Ambulatory with complaints of Sinus kb Congestion. 14:34 The patient or guardian reports sinus congestion. Onset: The symptoms/episode kb began/occurred and became worse 1 week(s) ago. Severity of symptoms: At their worst the symptoms were moderate, in the emergency department the symptoms are unchanged. Modifying factors: The symptoms are alleviated by nothing, the symptoms are aggravated by nothing. Associated signs and symptoms: Pertinent positives: rhinorrhea, Pertinent negatives: chest pain, diarrhea, ear ache, fever, nausea, sore throat, vomiting. The patient has not experienced similar symptoms in the past. The patient has not recently seen a physician. Pt states she has had sinus congestion for a long time, but recently it has been draining and making her choke. She had an appt with PCP and was prescribed antibiotics and steroids that she is taking, but she still has the thick drainage. . Historical: - Allergies: 14:15 Sulfa (Sulfonamide Antibiotics); vg1 14:15 Amoxicillin (Anaphylaxis); vg1 - Home Meds: 14:15 losartan Oral [Active]; gabapentin 300 mg Oral cap daily [Active]; carvedilol 25 mg vg1 Oral tab 1 tab 2 times per day [Active]; Aspirin Oral [Active]; Albuterol Inhl [Active]; - PMHx: 14:15 Bipolar disorder; Diabetes - IDDM; High Cholesterol; Hypertension; Rheumatoid vg1 Arthritis; sarcoidosis; - PSHx: 14:15 polyps on uterus; renal cyst removal; tubal; vg1 - Immunization history:: Client reports receiving the Jonathon \T\ Jonathon single-dose vaccine. - Social history:: Smoking status: Patient denies any tobacco usage or history of. ROS: 14:40 Constitutional: Negative for fever, chills, and weight loss, Respiratory: Negative for kb shortness of breath, cough, wheezing, and pleuritic chest pain, MS/Extremity: Negative for injury and deformity, Skin: Negative for injury, rash, and discoloration, Neuro: Negative for headache, weakness, numbness, tingling, and seizure, Psych: Negative for depression, anxiety, suicide ideation, homicidal ideation, and hallucinations. 14:40 ENT: Positive for rhinorrhea, sinus congestion. 14:40 All other systems are negative. Exam: 14:40 Constitutional: This is a well developed, well nourished patient who is awake, alert, kb and in no acute distress. Head/Face: Normocephalic, atraumatic. Cardiovascular: Regular rate and rhythm with a normal S1 and S2. No gallops, murmurs, or rubs. No pulse deficits. Respiratory: Respirations even and unlabored. No increased work of breathing, no retractions or nasal flaring. Skin: Warm, dry with normal turgor. Normal color. MS/ Extremity: Pulses equal, no cyanosis. Neurovascular intact. Full, normal range of motion. Neuro: Awake and alert, GCS 15, oriented to person, place, time, and situation. Moves all extremities. Normal gait. Psych: Awake, alert, with orientation to person, place and time. Behavior, mood, and affect are within normal limits. 14:40 ENT: External ear(s): are unremarkable, Ear canal(s): are normal, TM's: are normal, Nose: is normal, Mouth: is normal, Posterior pharynx: is normal. Vital Signs: 14:08 BP 144 / 74; Pulse 66; Resp 18; Temp 97.9; Pulse Ox 100% ; Weight 102.06 kg; Height 5 vg1 ft. 9 in. (175.26 cm); Pain 8/10; 14:08 Body Mass Index 33.23 (102.06 kg, 175.26 cm) vg1 MDM: 14:19 Patient medically screened. kb 14:42 Data reviewed: vital signs, nurses notes. Data interpreted: Pulse oximetry: on room air kb is 100 %. Interpretation: normal. Counseling: I had a detailed discussion with the patient and/or guardian regarding: the historical points, exam findings, and any diagnostic results supporting the discharge/admit diagnosis, the need for outpatient follow up, a family practitioner, to return to the emergency department if symptoms worsen or persist or if there are any questions or concerns that arise at home. Administered Medications: No medications were administered Disposition: 11/14 03:43 Co-signature as Attending Physician, Mitchell Carbajal MD I agree with the assessment and omar plan of care. Disposition Summary: 02/16/21 14:42 Discharge Ordered Location: Home kb Condition: Stable kb Diagnosis - sinus congestion kb Followup: kb - With: Emergency Department - When: As needed - Reason: Worsening of condition Followup: kb - With: Private Physician - When: 2 - 3 days - Reason: Recheck today's complaints, Continuance of care, Re-evaluation by your physician Discharge Instructions: - Discharge Summary Sheet kb - Sinusitis, Adult, [id number] kb Forms: - Medication Reconciliation Form kb - Thank You Letter kb - Antibiotic Education kb - Prescription Opioid Use kb Signatures: Emely Smyth, AUTO BODY MECHANIC APPRENTICE-C AUTO BODY MECHANIC APPRENTICE-Mitchell Garcia MD MD cha Garcia, Victoria, RN RN vg1
[2021-02-16 15:32] VITALS: BP 144/74; TEMP 97.9; O2SAT 100
--- OUTSIDE RECORDS SUMMARY | 2021-02-17 00:01 | XMS REPORT | Continuity of Care Document ---
:1950 Author Organization [facility] t Address [address] [place] [address] Care Team Providers Name Role Phone Josh Driscoll Primary Care Physician Puma LU Attending Clinician Unavailable EVANGELISTA Attending Clinician Unavailable Ebrahim [employer]HOU[employer] SUPERVISOR Attending Clinician Evangelista [employer] SUPERVISOR Attending Clinician ROSALINA SOLIMAN Attending Clinician Unavailable Alfonso GARCIA, T Attending Clinician Unavailable Only, Db Test Attending Clinician Unavailable Araseli [employer] SUPERVISOR, J Attending Clinician Rudolph HUNG Attending Clinician Unavailable Anthonyikmonique [employer] SUPERVISOR, F Attending Clinician Corinne [employer] SUPERVISOR Attending Clinician Puma Lu MD Attending Clinician Jewel Araujo MD Attending Clinician 2, Lab Attending Clinician Unavailable JEWEL ARAUJO Attending Clinician Unavailable JEWEL ARAUJO Attending Clinician Unavailable Doctor Unassigned, Name Attending Clinician Unavailable Zoe WEINBERG, Javier Attending Clinician Rosalina Soliman DO Attending Clinician Paulette Laura DPM Attending Clinician Denisse WEINBERG, Navjot Walden Attending Clinician [phone] Payers Payer Name Policy Type Policy Number Effective Date Expiration Date Paulette guy [facility] [id number] 2018 00:00:00 CIGNA MEDICARE - [id number] RNPO PCP AARP [facility] ADVANTAGE [id number] 2019 HMO-POS-UHC 00:00:00 ZZZMEDICARE [id number] 2015 ADVANTAGE PLAN-PPO 00:00:00 Problems Condition Condition Condition Status Onset Resolution Last Treating Co mments Source Name Details Category Date Date Treatment Clinician Date - Diagnosis Active 2016-01-14 M emoria UNSPECIFIE 12-26 11:41:00 l D DEMENTIA - 00:01: 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 Active [facility] ureteral ureteral 7-11 Colleg [facility] stent stent 00:00: of 00 Medicin e Sarcoidosi Sarcoidosi Disease Active B aydonna s s 211 College 00:00: of 00 Medicin e Renal mass Renal mass Disease Active 2014-04 [facility] 00:00: of 00 Medicin e Left flank Left flank Disease Active 2014-04 B rebecca pain pain 05-28 College 00:00: of 00 Medicin e HYPERCHOLE Condition Active 2010-042013-04-19 Memoria STEROLEMIA 04-16 11:19:00 l 00:00: [place] HYPERCHOLE 00 STEROLEMIA [...] SITES JOINT, MULTIPLE SITES Inactive Condition 4 [facility] SARCOIDOSI Condition Inactiv 2013-04-19 Memoria S e 11:19:00 l [place] SARCOIDOSI S Inactive Condition 4 [facility] UNSPECIFIE Condition Inactiv 2013-04-19 Memoria D e 11:19:00 l INFLAMMATO Alex n RY UNSPECIFIE POLYARTHRO D TE INFLAMMATO RY POLYARTHRO TE Inactive Condition 4 [facility] TENDINITIS Condition Inactiv 2013-04-19 Memoria , e 11:19:00 l SHOULDER, [place] RIGHT TENDINITIS , SHOULDER, RIGHT Inactive Condition 4 [facility] BACK PAIN, Condition Inactiv 2013-04-19 Memoria LUMBAR e 11:19:00 l BACK [place] PAIN, LUMBAR Inactive Condition 4 [facility] TRIGGER Condition Inactiv 2013-04-19 M emoria FINGER, e 11:19:00 l INDEX TRIGGER Bull FINGER FINGER, INDEX FINGER Inactive Condition 4 [facility] CARPAL Condition Inactiv 2013-04-19 Me moria TUNNEL e 11:19:00 l SYNDROME, CARPAL Lacy nn LEFT TUNNEL SYNDROME, LEFT Inactive Condition 4 [facility] ARTHRITIS, Condition Active 2013-04-19 Memoria RHEUMATOID 11:19:00 l [place] ARTHRITIS, RHEUMATOID Active Condition 04/19/2013 [facility] HYPERTENSI Condition Active 2013-04-19 Memoria ON 11:19:00 l [place] HYPERTENSI ON Active Condition 04/19/2013 [facility] DIABETES Condition Active 2013-04-19 M emoria MELLITUS, 11:19:00 l TYPE I, DIABETES Lacy nn ADULT MELLITUS, ONSET TYPE I, ADULT ONSET Active Condition 04/19/2013 [facility] VITAMIN D Condition Active 2013-04-19 Memoria DEFICIENCY 11:19:00 l VITAMIN Bull D DEFICIENCY Active Condition 04/19/2013 [facility] SHOULDER Condition Active 2013-04-19 M emoria PAIN, 11:19:00 l RIGHT SHOULDER Alex n PAIN, RIGHT Active Condition 04/19/2013 [facility] UNSPECIFIE Condition Active 2013-04-19 Memoria D 11:19:00 l ARTHROPATH Alex n Y SITE UNSPECIFIE UNSPECIFIE D D ARTHROPATH Y SITE UNSPECIFIE D Active Condition 04/19/2013 [facility] No known No known Disease Unive rs active active ity of problems problems [facility] History of Past Illness Condition Condition Condition Status Onset Resolution Last Treating Co mments Source Name Details Category Date Date Treatment Clinician Date RIGHT Condition Inactiv 2013-04-19 2013-04-19 Memoria CUBITAL e - 11:19:00 11:19:00 l TUNNEL RIGHT 00:00: [place] SYNDROME CUBITAL 00 TUNNEL SYNDROME Inactive 04/18/2011 Condition 4 [facility] RIGHT Condition Inactiv 2010-042013-04-19 2013-04-19 Memoria CARPAL e - 11:19:00 11:19:00 l TUNNEL RIGHT 00:00: [place] SYNDROME CARPAL 00 TUNNEL SYNDROME Inactive 02/14/2011 Condition 4 [facility] Allergies, Adverse Reactions, Alerts Allergy Allergy Status Severity Reaction(s) Onset Inactive Treating Comm ents Source Name Type Date Date Clinician AMOXICIL DRUG Active SOB [facility] COURTNEY INGREDI 9-07 ity of 00:00: [place] 00 Medical Branch Amoxicil Propensi Active Shortness of Univers courtney ty to Breath 9-07 ity of adverse 00:00: [place] reaction 00 Medical s Branch Glipizid Propensi Active [facility] e ty to [address] [place] adverse 00:00: of reaction 00 Medicin s to e drug NO KNOWN Drug Active Univers ALLERGIE Class ity of S [facility] Social History Social Habit Start Date Stop Date Quantity Comments Source Exposure to Not sure University of SARS-CoV-2 [place] Medical (event) Branch Alcohol intake 2020-08-01 2020-08-01 Current [facility] Col lege of 00:00:00 00:00:00 non-drinker of Medicine alcohol (finding) Tobacco use and 2020-08-01 2020-08-01 Never used [facility] Co llege of exposure 00:00:00 00:00:00 Medicine Sex [birth year] [facility] llege of 00:00:00 00:00:00 Medicine Smoking Status Start Date Stop Date Source Never smoker [facility] o f Medicine Medications Ordered Filled Start Stop Current Ordering Indication Dosage Frequency Signature Comments Components Source Medication Medication Date Date Medication? Clinician (SIG) Name Name maalox:diph 2020- No 15mL 15 mL, Uni vers enhydrAMINE 12-11 Oral, ity of :lidocaine 07:30: 06:48 ONCE, 1 [place] as 2 % viscous 00 :00 dose, Tue Med ical 1:1:1 12/11/20 at [place] ([facility] [address], [facility]) Routine oral suspension 15 mL albuterol 2020- No 6{puff} 6 Puff, U nivers (VENTOLIN) 12-11 Inhalation it y of inhaler 6 07:30: 07:02 [place] :[place] dose, [facility] 12/11/20 at [place] 0230, [place] NaCl 0.9% 2020- No 1000mL at 999 Uni vers (NS) bolus 12-11 mL/hr, ity of infusion 07:30: 07:44 1,000 mL, [place] as 1,000 mL 00 :[facility] dose, [facility] 12/11/20 at 0230, STAT acetaminoph 2020- No 1000mg 1,000 mg, Univers en 12-11 Oral, ity of (TYLENOL) 07:30: 06:30 [place] tablet [place] :[place] dose, [facility] 1,000 mg 12/11/20 at [place] 0230, Routine maalox:diph No 15mL 15 mL, Uni vers enhydrAMINE 12-11 Oral, ity of :lidocaine 07:30: 06:48 ONCE, 1 [place] as 2 % viscous 00 :00 dose, Tue Med ical 1:1:1 12/11/20 at [place] ([facility] [address], [facility]) Routine oral suspension 15 mL albuterol 2020- No 6{puff} 6 Puff, U nivers (VENTOLIN) 12-11 Inhalation it y of inhaler 6 07:30: 07:02 [place] P[place] :[place] dose, [facility] 12/11/20 at Branch 0230, [place] NaCl 0.9% 2020- No 1000mL at 999 Uni vers (NS) bolus 12-11 mL/hr, ity of infusion 07:30: 07:44 1,000 mL, [place] as 1,000 mL 00 :00 IV Medical Piggyback, [place] ONCE, 1 dose, [facility] 12/11/20 at 0230, STAT acetaminoph 2020- No 1000mg 1,000 mg, Univers en 12-11 Oral, ity of (TYLENOL) 07:30: 06:30 [place]CE, [place] tablet [place] :[place] dose, [facility] 1,000 mg 12/11/20 at Branch 0230, Routine benzonatate Yes [id number] 100mg Take 1 Univers 100 mg 9-07 capsule by ity of capsule 00:00: mouth 3 [place] 00 (three) Medical times Branch daily as needed for Cough. ondansetron Yes [id number] 4mg Take 1 Univers 4 mg 9-07 tablet by ity of disintegrat 00:00: mouth [place] ing tablet 00 every 8 Medica l (eight) Branch hours as needed for Nausea and Vomiting (N/V). albuterol Yes [id number] 6{puff} Inhale 6 Univers 90 9-07 Puffs ity of mcg/actuati 00:00: every 4 [place] as on inhaler 00 (four) Medical hours as Branch needed for Wheezing or Shortness of Breath. benzonatate 0 Yes [id number] 100mg Take 1 Univers 100 mg 9-07 capsule by ity of capsule 00:00: mouth 3 [place] 00 (three) Medical times Branch daily as needed for Cough. ondansetron 0 Yes [id number] 4mg Take 1 Univers 4 mg 9-07 tablet by ity of disintegrat 00:00: mouth [place] ing tablet 00 every 8 Medica l (eight) Branch hours as needed for Nausea and Vomiting (N/V). albuterol Yes [id number] 6{puff} Inhale 6 Univers 90 9-07 Puffs ity of mcg/actuati 00:00: every 4 [place] as on inhaler 00 (four) Medical hours as Branch needed for Wheezing or Shortness of Breath. benzonatate 2020-0 Yes [id number] 100mg Take 1 Univers 100 mg 9-07 capsule by ity of capsule 00:00: mouth 3 [place] 00 (three) Medical times Branch daily as needed for Cough. ondansetron 2020-0 Yes [id number] 4mg Take 1 Univers 4 mg 9-07 tablet by ity of disintegrat 00:00: mouth [place] ing tablet 00 every 8 Medica l (eight) Branch hours as needed for Nausea and Vomiting (N/V). albuterol 2020-0 Yes [id number] 6{puff} Inhale 6 Univers 90 9-07 Puffs ity of mcg/actuati 00:00: every 4 [place] as on inhaler 00 (four) Medical hours as Branch needed for Wheezing or Shortness of Breath. benzonatate 0 Yes [id number] 100mg Take 1 Univers 100 mg 9-07 capsule by ity of capsule 00:00: mouth 3 [place] 00 (three) Medical times Branch daily as needed for Cough. ondansetron 0 Yes [id number] 4mg Take 1 Univers 4 mg 9-07 tablet by ity of disintegrat 00:00: mouth [place] ing tablet 00 every 8 Medica l (eight) Branch hours as needed for Nausea and Vomiting (N/V). albuterol 0 Yes [id number] 6{puff} Inhale 6 Univers 90 9-07 Puffs ity of mcg/actuati 00:00: every 4 [place] as on inhaler 00 (four) Medical hours as Branch needed for Wheezing or Shortness of Breath. benzonatate 2020-0 Yes [id number] 100mg Take 1 Univers 100 mg 9-07 capsule by ity of capsule 00:00: mouth 3 [place] 00 (three) Medical times Branch daily as needed for Cough. ondansetron 2020-0 Yes [id number] 4mg Take 1 Univers 4 mg 9-07 tablet by ity of disintegrat 00:00: mouth [place] ing tablet 00 every 8 Medica l (eight) Branch hours as needed for Nausea and Vomiting (N/V). albuterol 2020-0 Yes [id number] 6{puff} Inhale 6 Univers 90 9-07 Puffs ity of mcg/actuati 00:00: every 4 [place] as on inhaler 00 (four) Medical hours as Branch needed for Wheezing or Shortness of Breath. benzonatate 2020-0 Yes [id number] 100mg Take 1 Univers 100 mg 9-07 capsule by ity of capsule 00:00: mouth 3 [place] 00 (three) Medical times Branch daily as needed for Cough. ondansetron 2020-0 Yes [id number] 4mg Take 1 Univers 4 mg 9-07 tablet by ity of disintegrat 00:00: mouth [place] ing tablet 00 every 8 Medica l (eight) Branch hours as needed for Nausea and Vomiting (N/V). albuterol 2020-0 Yes [id number] 6{puff} Inhale 6 Univers 90 9-07 Puffs ity of mcg/actuati 00:00: every 4 [place] as on inhaler 00 (four) Medical hours as Branch needed for Wheezing or Shortness of Breath. benzonatate 0 Yes [id number] 100mg Take 1 Univers 100 mg 9-07 capsule by ity of capsule 00:00: mouth 3 [place] 00 (three) Medical times Branch daily as needed for Cough. ondansetron 2020-0 Yes [id number] 4mg Take 1 Univers 4 mg 9-07 tablet by ity of disintegrat 00:00: mouth [place] ing tablet 00 every 8 Medica l (eight) Branch hours as needed for Nausea and Vomiting (N/V). albuterol 2020-0 Yes [id number] 6{puff} Inhale 6 Univers 90 9-07 Puffs ity of mcg/actuati 00:00: every 4 [place] as on inhaler 00 (four) Medical hours as Branch needed for Wheezing or Shortness of Breath. carvediloL 2020-0 Yes 25mg Take 25 mg U nivers (COREG) 25 7-23 by mouth 2 ity of mg tablet 21:40: (two) [place] 12 times Medical daily with Branch meals. carvediloL 2020-0 Yes 25mg Take 25 mg U nivers (COREG) 25 7-23 by mouth 2 ity of mg tablet 21:40: (two) [place] 12 times Medical daily with Branch meals. carvediloL 2020-0 Yes 25mg Take 25 mg U nivers (COREG) 25 7-23 by mouth 2 ity of mg tablet 21:40: (two) [place] 12 times Medical daily with Branch meals. carvediloL 2021-0 Yes 25mg Take 25 mg U nivers (COREG) 25 7-23 by mouth 2 ity of mg tablet 21:40: (two) [place] 12 times Medical daily with Branch meals. carvediloL 2021-0 Yes 25mg Take 25 mg U nivers (COREG) 25 7-23 by mouth 2 ity of mg tablet 21:40: (two) [place] 12 times Medical daily with Branch meals. carvediloL 2021-0 Yes 25mg Take 25 mg U nivers (COREG) 25 7-23 by mouth 2 ity of mg tablet 21:40: (two) [place] 12 times Medical daily with Branch meals. carvediloL 2021-0 Yes 25mg Take 25 mg U nivers (COREG) 25 7-23 by mouth 2 ity of mg tablet 21:40: (two) [place] 12 times Medical daily with Branch meals. carvediloL 2021-0 Yes 25mg Take 25 mg U nivers (COREG) 25 7-23 by mouth 2 ity of mg tablet 16:40: (two) [place] 12 times Medical daily with Branch meals. carvediloL 2021-0 Yes 25mg Take 25 mg U nivers (COREG) 25 7-23 by mouth 2 ity of mg tablet 16:40: (two) [place] 12 times Medical daily with Branch meals. carvediloL 2021-0 Yes 25mg Take 25 mg U nivers (COREG) 25 7-23 by mouth 2 ity of mg tablet 16:40: (two) [place] 12 times Medical daily with Branch meals. amLODIPine 2021-0 Yes [id number] 10mg Take 1 Un [place] 10 mg 7-23 tablet by ity of tablet 00:00: mouth [place] 00 daily. Medical Branch amLODIPine 2021-0 Yes [id number] 10mg Take 1 Un [place] 10 mg 7-23 tablet by ity of tablet 00:00: mouth [place] 00 daily. Medical Branch amLODIPine 2021-0 Yes [id number] 10mg Take 1 Un [place] 10 mg 7-23 tablet by ity of tablet 00:00: mouth [place] 00 daily. Medical Branch amLODIPine 2020-0 Yes [id number] 10mg Take 1 Un [place] 10 mg 7-23 tablet by ity of tablet 00:00: mouth [place] 00 daily. Medical Branch amLODIPine 2020-0 Yes [id number] 10mg Take 1 Un [place] 10 mg 7-23 tablet by ity of tablet 00:00: mouth [place] 00 daily. Medical Branch amLODIPine 2020-0 Yes [id number] 10mg Take 1 Un [place] 10 mg 7-23 tablet by ity of tablet 00:00: mouth [place] 00 daily. Medical Branch amLODIPine 2020-0 Yes [id number] 10mg Take 1 Un [place] 10 mg 7-23 tablet by ity of tablet 00:00: mouth [place] 00 daily. Medical Branch amLODIPine 2020-0 Yes [id number] 10mg Take 1 Un [place] 10 mg 7-23 tablet by ity of tablet 00:00: mouth [place] 00 daily. Medical Branch amLODIPine 2020-0 Yes [id number] 10mg Take 1 Un [place] 10 mg 7-23 tablet by ity of tablet 00:00: mouth [place] 00 daily. Medical Branch amLODIPine 2020-0 Yes [id number] 10mg Take 1 Un [place] 10 mg 7-23 tablet by ity of tablet 00:00: mouth [place] 00 daily. Medical Branch gabapentin 2020-0 Yes Take by Uni vers ER 300 mg 7-06 mouth ity of tablet, 15:13: daily. [place] extended 54 Medical release 24 Branch hr gabapentin 1-0 Yes Take by Uni vers ER 300 mg 7-06 mouth ity of tablet, 15:13: daily. [place] extended 54 Medical release 24 Branch hr gabapentin 2021-0 Yes Take by Uni vers ER 300 mg 7-06 mouth ity of tablet, 15:13: daily. [place] extended 54 Medical release 24 Branch hr gabapentin 2021-0 Yes Take by Uni vers ER 300 mg 7-06 mouth ity of tablet, 15:13: daily. [place] extended 54 Medical release 24 Branch hr gabapentin 2021-0 Yes Take by Uni vers ER 300 mg 7-06 mouth ity of tablet, 15:13: daily. [place] extended 54 Medical release 24 Branch hr gabapentin 2021-0 Yes Take by Uni vers ER 300 mg 7-06 mouth ity of tablet, 15:13: daily. [place] extended 54 Medical release 24 Branch hr gabapentin 2021-0 Yes Take by Uni vers ER 300 mg 7-06 mouth ity of tablet, 15:13: daily. [place] extended 54 Medical release 24 Branch hr gabapentin 2021-0 Yes Take by Uni vers ER 300 mg 7-06 mouth ity of tablet, 15:13: daily. [place] extended 54 Medical release 24 Branch hr gabapentin 2021-0 Yes Take by Uni vers ER 300 mg 7-06 mouth ity of tablet, 15:13: daily. [place] extended 54 Medical release 24 Branch hr gabapentin 2021-0 Yes Take by Uni vers ER 300 mg 7-06 mouth ity of tablet, 15:13: daily. [place] extended 54 Medical release 24 Branch hr gabapentin 2021-0 Yes Take by Uni vers ER 300 mg 7-06 mouth ity of tablet, 15:13: daily. [place] extended 54 Medical release 24 Branch hr gabapentin 2021-0 Yes Take by Uni vers ER 300 mg 7-06 mouth ity of tablet, 10:13: daily. [place] extended 54 Medical release 24 Branch hr gabapentin 2021-0 Yes Take by Uni vers ER 300 mg 7-06 mouth ity of tablet, 10:13: daily. [place] extended 54 Medical release 24 Branch hr gabapentin 2021-0 Yes Take by Uni vers ER 300 mg 7-06 mouth ity of tablet, 10:13: daily. [place] extended 54 Medical release 24 Branch hr predniSONE 2021-0 Yes 5mg Take 5 mg [place] 5 mg tablet 6-30 by mouth ity of 00:00: daily. [place] [address] Medical Branch torsemide 2021-0 Yes 10mg Take 10 mg Un [place] 20 mg 6-30 by mouth 3 ity of tablet 00:00: (three) [place] [address] times Medical daily. Branch predniSONE 2021-0 Yes 5mg Take 5 mg [place] 5 mg tablet 6-30 by mouth ity of 00:00: daily. [place] [address] Medical Branch torsemide 2021-0 Yes 20mg Take 20 mg [place] 20 mg 6-30 by mouth ity of tablet 00:00: daily. [place] [address] Medical Branch predniSONE 2021-0 Yes 5mg Take 5 mg [place] 5 mg tablet 6-30 by mouth ity of 00:00: daily. [place] [address] Medical Branch torsemide 2021-0 Yes 20mg Take 20 mg [place] 20 mg 6-30 by mouth ity of tablet 00:00: daily. [place] [address] Medical Branch predniSONE 2021-0 Yes 5mg Take 5 mg [place] 5 mg tablet 6-30 by mouth ity of 00:00: daily. Medical Branch torsemide 2021-0 Yes 20mg Take 20 mg [place] 20 mg 6-30 by mouth ity of tablet 00:00: daily. Medical Branch predniSONE 2021-0 Yes 5mg Take 5 mg [place] 5 mg tablet 6-30 by mouth ity of 00:00: daily. Medical Branch torsemide 2021-0 Yes 20mg Take 20 mg [place] 20 mg 6-30 by mouth ity of tablet 00:00: daily. Medical Branch predniSONE 2021-0 Yes 5mg Take 5 mg [place] 5 mg tablet 6-30 by mouth ity of 00:00: daily. Medical Branch torsemide 2021-0 Yes 10mg Take 10 mg [place] 20 mg 6-30 by mouth 3 ity of tablet 00:00: (three) [place] times Medical daily. Branch predniSONE 2021-0 Yes 5mg Take 5 mg [place] 5 mg tablet 6-30 by mouth ity of 00:00: daily. Medical Branch torsemide 2021-0 Yes 10mg Take 10 mg [place] 20 mg 6-30 by mouth 3 ity of tablet 00:00: (three) [place] times Medical daily. Branch predniSONE 2021-0 Yes 5mg Take 5 mg [place] 5 mg tablet 6-30 by mouth ity of 00:00: daily. Medical Branch torsemide 2021-0 Yes 10mg Take 10 mg [place] 20 mg 6-30 by mouth 3 ity of tablet 00:00: (three) [place] times Medical daily. Branch predniSONE 2021-0 Yes 5mg Take 5 mg [place] 5 mg tablet 6-30 by mouth ity of 00:00: daily. Medical Branch torsemide 2021-0 Yes 10mg Take 10 mg [place] 20 mg 6-30 by mouth 3 ity of tablet 00:00: (three) [place] times Medical daily. Branch predniSONE 2021-0 Yes 5mg Take 5 mg [place] 5 mg tablet 6-30 by mouth ity of 00:00: daily. Medical Branch torsemide 2021-0 Yes 10mg Take 10 mg [place] 20 mg 6-30 by mouth 3 ity of tablet 00:00: (three) [place] 00 times Medical daily. Branch predniSONE 2021-0 Yes 5mg Take 5 mg [place] 5 mg tablet 6-30 by mouth ity of 00:00: daily. Medical Branch torsemide 2021-0 Yes 10mg Take 10 mg [place] 20 mg 6-30 by mouth 3 ity of tablet 00:00: (three) [place] 00 times Medical daily. Branch predniSONE 2021-0 Yes 5mg Take 5 mg [place] 5 mg tablet 6-30 by mouth ity of 00:00: daily. Medical Branch torsemide 2021-0 Yes 10mg Take 10 mg [place] 20 mg 6-30 by mouth 3 ity of tablet 00:00: (three) [place] 00 times Medical daily. Branch predniSONE 2021-0 Yes 5mg Take 5 mg [place] 5 mg tablet 6-30 by mouth ity of 00:00: daily. Medical Branch torsemide 2021-0 Yes 10mg Take 10 mg [place] 20 mg 6-30 by mouth 3 ity of tablet 00:00: (three) [place] 00 times Medical daily. Branch predniSONE 2021-0 Yes 5mg Take 5 mg [place] 5 mg tablet 6-30 by mouth ity of 00:00: daily. Medical Branch torsemide 2021-0 Yes 10mg Take 10 mg [place] 20 mg 6-30 by mouth 3 ity of tablet 00:00: (three) [place] 00 times Medical daily. Branch albuterol 2020-0 [...] Branch NEEDED FOR SHORTNESS OF BREATH RESTASIS 0 Yes INSTILL 1 Univ ers 0.05 % 6-02 DROP INTO ity of ophthalmic 00:00: EACH EYE [place] as drops 00 TWICE Medical DAILY Branch RESTASIS 2020-0 Yes INSTILL 1 Univ ers 0.05 % 6-02 DROP INTO ity of ophthalmic 00:00: EACH EYE [place] as drops 00 TWICE Medical DAILY Branch RESTASIS 2020-0 Yes INSTILL 1 Univ ers 0.05 % 6-02 DROP INTO ity of ophthalmic 00:00: EACH EYE [place] as drops 00 TWICE Medical DAILY Branch RESTASIS 0 Yes INSTILL 1 Univ ers 0.05 % 6-02 DROP INTO ity of ophthalmic 00:00: EACH EYE [place] as drops 00 TWICE Medical DAILY Branch RESTASIS 0 Yes INSTILL 1 Univ ers 0.05 % 6-02 DROP INTO ity of ophthalmic 00:00: EACH EYE [place] as drops 00 TWICE Medical DAILY Branch RESTASIS 2020-0 Yes INSTILL 1 Univ ers 0.05 % 6-02 DROP INTO ity of ophthalmic 00:00: EACH EYE [place] as drops 00 TWICE Medical DAILY Branch RESTASIS 2020-0 Yes INSTILL 1 Univ ers 0.05 % 6-02 DROP INTO ity of ophthalmic 00:00: EACH EYE [place] as drops 00 TWICE Medical DAILY Branch RESTASIS 2020-0 Yes INSTILL 1 Univ ers 0.05 % 6-02 DROP INTO ity of ophthalmic 00:00: EACH EYE [place] as drops 00 TWICE Medical DAILY Branch RESTASIS 2020-0 Yes INSTILL 1 Univ ers 0.05 % 6-02 DROP INTO ity of ophthalmic 00:00: EACH EYE [place] as drops 00 TWICE Medical DAILY Branch RESTASIS 2020-0 Yes INSTILL 1 Univ ers 0.05 % 6-02 DROP INTO ity of ophthalmic 00:00: EACH EYE [place] as drops 00 TWICE Medical DAILY Branch RESTASIS 2020-0 Yes INSTILL 1 Univ ers 0.05 % 6-02 DROP INTO ity of ophthalmic 00:00: EACH EYE [place] as drops 00 TWICE Medical DAILY Branch RESTASIS 2020-0 Yes INSTILL 1 Univ ers 0.05 % [...] as drops 00 TWICE Medical DAILY Branch losartan Yes 100mg Take 100 [facility] (COZAAR) 4-28 mg by [place] 100 MG 14:47: mouth of tablet 24 daily. Medicin e omeprazole Yes 1{capsu Take 1 [facility] [place] (PRILOSEC) 4-28 le} by mouth Colle ge 40 MG 14:47: daily. of capsule 24 Medicin e Fluticasone Yes by Nasal [facility] Propionate 4-28 route. [place] (FLONASE 14:47: of ALLERGY 24 Medicin RELIEF NA) e pioglitazon Yes 15mg Take 15 mg [facility] e (ACTOS) 4-28 by mouth Colleg e 15 MG 14:47: daily. of tablet 24 Medicin e Acetaminoph Yes 650mg Take 650 B [place]or en 4-28 mg by [place] (TYLENOL) 14:47: mouth of 325 MG CAPS 24 daily. Medici n e AMLODIPINE Yes Take by [facility] donna BESYLATE OR 4-28 mouth. Colleg e 14:47: of 24 Medicin e GABAPENTIN Yes Take by [facility] don[facility] OR 4-28 mouth. [place] 14:47: of 24 Medicin e carvedilol Yes [id number] 25mg Take 25 mg [facility] (COREG) 4-28 by mouth 2 Colleg e 6.25 MG 14:47: times of tablet 24 daily Medicin (with e meals). predniSONE Yes 5mg Take 1 [facility] (DELTASONE) 4-28 Tablet by Col lege 5 MG tablet 00:00: mouth of 00 daily. Medicin e baclofen 10 Yes 10mg Take 10 mg Univers mg tablet 4-28 by mouth 3 ity of 00:00: (three) [place] 00 times Medical daily. Branch baclofen 10 Yes 10mg Take 10 mg Univers mg tablet 4-28 by mouth 3 ity of 00:00: (three) [place] 00 times Medical daily. Branch baclofen 10 2020-0 Yes 10mg Take 10 mg Univers mg tablet 4-28 by mouth 3 ity of 00:00: (three) [place] 00 times Medical daily. Branch baclofen 10 2020-0 Yes 10mg Take 10 mg Univers mg tablet 4-28 by mouth 3 ity of 00:00: (three) [place] 00 times Medical daily. Branch baclofen 10 2020-0 Yes 10mg Take 10 mg Univers mg tablet 4-28 by mouth 3 ity of 00:00: (three) [place] 00 times Medical daily. Branch baclofen 10 2020-0 Yes 10mg Take 10 mg Univers mg tablet 4-28 by mouth 3 ity of 00:00: (three) [place] 00 times Medical daily. Branch baclofen 10 2020-0 Yes 10mg Take 10 mg Univers mg tablet 4-28 by mouth 3 ity of 00:00: (three) [place] 00 times Medical daily. [facility] baclofen 10 2020-0 Yes 10mg Take 10 mg [facility] mg tablet 4-28 by mouth 3 ity of 00:00: (three) [place] 00 times Medical daily. [facility] baclofen 10 2020-0 Yes 10mg Take 10 mg [facility] mg tablet 4-28 by mouth 3 ity of 00:00: (three) [place] 00 times Medical daily. [facility] baclofen 10 2020-0 Yes 10mg Take 10 mg [facility] mg tablet 4-28 by mouth 3 ity of 00:00: (three) [place] 00 times Medical daily. [facility] baclofen 10 2020-0 Yes 10mg Take 10 mg [facility] mg tablet 4-28 by mouth 3 ity of 00:00: (three) [place] 00 times Medical daily. Branch baclofen 10 2020-0 Yes 10mg Take 10 mg [facility] mg tablet 4-28 by mouth 3 ity of 00:00: (three) [place] 00 times Medical daily. Branch baclofen 10 2020-0 Yes 10mg Take 10 mg [facility] mg tablet 4-28 by mouth 3 ity of 00:00: (three) [place] 00 times Medical daily. Branch baclofen 10 2020-0 Yes 10mg Take 10 mg [facility] mg tablet 4-28 by mouth 3 ity of 00:00: (three) [place] 00 times Medical daily. [facility] amoxicillin 2020-0 Yes 500mg Take 500 [facility] (AMOXIL) -26 mg by [place] 500 mg 00:00: mouth 3 of capsule 00 times Medicin daily. e acetaminoph Yes 300mg Take 300 [facility] en-codeine 4-26 mg by [place] (TYLENOL 00:00: mouth as of #3) 300-30 00 needed. Medici n MG per e tablet pioglitazon Yes 15mg Take 15 mg [facility] e 15 mg 4-23 by mouth ity of tablet 00:00: daily. [place] [facility] pioglitazon Yes 15mg Take 15 mg [facility] e 15 mg 4-23 by mouth ity of tablet 00:00: daily. [place] [facility] pioglitazon Yes 15mg Take 15 mg [facility] e 15 mg 4-23 by mouth ity of tablet 00:00: daily. [place] [facility] pioglitazon Yes 15mg Take 15 mg [facility] e 15 mg 4-23 by mouth ity of tablet 00:00: daily. [place] [facility] pioglitazon Yes 15mg Take 15 mg [facility] e 15 mg 4-23 by mouth ity of tablet 00:00: daily. [place] [facility] pioglitazon Yes 15mg Take 15 mg [facility] e 15 mg 4-23 by mouth ity of tablet 00:00: daily. [place] [facility] pioglitazon Yes 15mg Take 15 mg [facility] e 15 mg 4-23 by mouth ity of tablet 00:00: daily. [place] [facility] pioglitazon Yes 15mg Take 15 mg [facility] e 15 mg 4-23 by mouth ity of tablet 00:00: daily. [place] [facility] pioglitazon Yes 15mg Take 15 mg [facility] e 15 mg 4-23 by mouth ity of tablet 00:00: daily. [place] [facility] pioglitazon Yes 15mg Take 15 mg Univers e 15 mg 4-23 by mouth ity of tablet 00:00: daily. [place] [facility] pioglitazon Yes 15mg Take 15 mg Univers e 15 mg 4-23 by mouth ity of tablet 00:00: daily. [place] [facility] pioglitazon Yes 15mg Take 15 mg Univers e 15 mg 4-23 by mouth ity of tablet 00:00: daily. [address] pioglitazon Yes 15mg Take 15 mg [facility] e 15 mg 4-23 by mouth ity of tablet 00:00: daily. [address] pioglitazon Yes 15mg Take 15 mg [facility] e 15 mg 4-23 by mouth ity of tablet 00:00: daily. [address] AMLODIPINE Yes Take by [facility] BESYLATE OR 3-29 mouth. Colleg e 13:59: of 13 Medicin e GABAPENTIN Yes Take by [facility] don[facility] OR 3-29 mouth. [place] 13:59: of 13 Medicin e carvedilol Yes [id number] 25mg Take 25 mg [facility] (COREG) 3-29 by mouth 2 Colleg e 6.25 MG 13:59: times of tablet 13 daily Medicin (with e meals). losartan Yes 100mg Take 100 [facility] (COZAAR) 3-29 mg by [place] 100 MG 13:59: mouth of tablet 13 daily. Medicin e omeprazole Yes 1{capsu Take 1 Cap [facility] (PRILOSEC) 3-29 le} by mouth Colle ge 40 MG 13:59: daily. of capsule 13 Medicin e Fluticasone Yes by [facility] Propionate 3-29 route. [place] (FLONASE 13:59: of ALLERGY 13 Medicin RELIEF NA) e pioglitazon Yes 15mg Take 15 mg [facility] (ACTOS) 3-29 by mouth Colleg e 15 MG 13:59: daily. of tablet 13 Medicin e Acetaminoph Yes 650mg Take 650 [facility] en 3-29 mg by [place] (TYLENOL) 13:59: mouth of 325 MG CAPS 13 daily. Medici n e AMLODIPINE Yes Take by [facility] don[facility] BESYLATE OR 3-29 mouth. Colleg e 13:59: of 13 Medicin e GABAPENTIN Yes Take by [facility] don[facility] OR 3-29 mouth. [place] 13:59: of 13 Medicin e carvedilol Yes [id number] 25mg Take 25 mg [facility] (COREG) 3-29 by mouth 2 Colleg e 6.25 MG 13:59: times of tablet 13 daily Medicin (with e meals). losartan Yes 100mg Take 100 [facility] (COZAAR) 3-29 mg by [facility] 100 MG 13:59: mouth of tablet 13 daily. Medicin e omeprazole Yes 1{capsu Take 1 Cap [facility] (PRILOSEC) 3-29 le} by mouth Colle ge 40 MG 13:59: daily. of capsule 13 Medicin e Fluticasone Yes by [facility] Propionate 3-29 route. [facility] (FLONASE 13:59: of ALLERGY 13 Medicin RELIEF NA) e pioglitazon Yes 15mg Take 15 mg [facility] e (ACTOS) 3-29 by mouth Colleg e 15 MG 13:59: daily. of tablet 13 Medicin e Acetaminoph Yes 650mg Take 650 [facility] en 3-29 mg by [place] (TYLENOL) 13:59: mouth of 325 MG CAPS 13 daily. Medici n e AMLODIPINE Yes Take by [facility] BESYLATE OR 3-25 mouth. Colleg e 15:00: of 27 Medicin e GABAPENTIN Yes Take by [facility] don[facility] OR 3-25 mouth. [place] 15:00: of 27 Medicin e carvedilol Yes [id number] 25mg Take 25 mg [facility] (COREG) 3-25 by mouth 2 Colleg e 6.25 MG 15:00: times of tablet 27 daily Medicin (with e meals). losartan Yes 100mg Take 100 [facility] (COZAAR) 3-25 mg by [place] 100 MG 15:00: mouth of tablet 27 daily. Medicin e omeprazole Yes 1{capsu Take 1 Cap [facility] (PRILOSEC) 3-25 le} by mouth Colle ge 40 MG 15:00: daily. of capsule 27 Medicin e Fluticasone 0 Yes by [facility] Propionate 3-25 route. [place] (FLONASE 15:00: of ALLERGY 27 Medicin RELIEF NA) e pioglitazon Yes 15mg Take 15 mg [facility] (ACTOS) 3-25 by mouth Colleg e 15 MG 15:00: daily. of tablet 27 Medicin e Acetaminoph Yes 650mg Take 650 [facility] en 3-25 mg by [place] (TYLENOL) 15:00: mouth of 325 MG CAPS 27 daily. Medici n e baclofen Yes [facility] (LIORESAL) 3-24 [place] 10 MG 00:00: of tablet 00 Medicin e baclofen Yes [facility] (LIORESAL) 3-24 [place] 10 MG 00:00: of tablet 00 Medicin e baclofen Yes [facility] (LIORESAL) 3-24 [place] 10 MG 00:00: of tablet 00 Medicin e fluticasone Yes USE 1 [facility] (FLONASE) 3-23 SPRAY(S) Colleg e 50 MCG/ACT 00:00: IN EACH of nasal spray 00 NOSTRIL Medic in ONCE DAILY e fluticasone Yes USE 1 [facility] (FLONASE) 3-23 SPRAY(S) Colleg e 50 MCG/ACT 00:00: IN EACH of nasal spray 00 NOSTRIL Medic in ONCE DAILY e fluticasone Yes USE 1 [facility] (FLONASE) 3-23 SPRAY(S) Colleg e 50 MCG/ACT 00:00: IN EACH of nasal spray 00 NOSTRIL Medic in ONCE DAILY e RESTASIS Yes INSTILL 1 [facility] 0.05 % 3-13 DROP INTO [place] ophthalmic 00:00: EACH EYE of emulsion 00 TWICE Medicin DAILY e RESTASIS Yes INSTILL 1 [facility] 0.05 % 3-13 DROP INTO [place] ophthalmic 00:00: EACH EYE of emulsion 00 TWICE Medicin DAILY e RESTASIS Yes INSTILL 1 [facility] 0.05 % 3-13 DROP INTO [place] ophthalmic 00:00: EACH EYE of emulsion 00 TWICE Medicin DAILY e AMLODIPINE Yes Take by [facility] BESYLATE OR 1-11 mouth. Colleg e 16:11: of 21 Medicin e GABAPENTIN Yes Take by [facility] odnna OR 1-11 mouth. College 16:11: of 21 Medicin e carvedilol Yes [id number] 6.25mg Take 6.25 [facility] (COREG) 1-11 mg by College 6.25 MG 16:11: mouth 2 of tablet 21 times Medicin daily e (with meals). losartan Yes 100mg Take 100 [facility] (COZAAR) 1-11 mg by [place] 100 MG 16:11: mouth of tablet 21 daily. Medicin e omeprazole Yes 1{capsu Take 1 Cap [facility] (PRILOSEC) 1-11 le} by mouth Colle ge 40 MG 16:11: daily. of capsule 21 Medicin e Fluticasone Yes by [facility] Propionate -11 route. [place] (FLONASE 16:11: of ALLERGY 21 Medicin RELIEF NA) e Blood 2019-04 Yes USE TO [facility] Glucose 2-26 CHECK [place] Monitoring 00:00: BLOOD of Suppl 00 GLUCOSE 1 Medicin (ONETOUCH TO 2 TIMES e VERIO FLEX DAILY SYSTEM) w/Device KIT Blood 2019-04 Yes USE TO [facility] Glucose 2-26 CHECK College Monitoring 00:00: BLOOD of Suppl 00 GLUCOSE 1 Medicin (ONETOUCH TO 2 TIMES e VERIO FLEX DAILY SYSTEM) w/Device KIT Blood 2019-04 Yes USE TO [facility] Glucose 2-26 CHECK College Monitoring 00:00: BLOOD of Suppl 00 GLUCOSE 1 Medicin (ONETOUCH TO 2 TIMES e VERIO FLEX DAILY SYSTEM) w/Device KIT leflunomide 2019-04 Yes 20mg Take 1 [facility] (ARAVA) 20 1-18 Tablet by [facility] MG tablet 00:00: mouth of 00 daily. Medicin e leflunomide 2019-04 Yes 20mg Take 1 [facility] (ARAVA) 20 1-18 Tablet by [facility] MG tablet 00:00: mouth of 00 daily. Medicin e leflunomide 2019-04 Yes 20mg Take 1 [facility] (ARAVA) 20 1-18 Tablet by [facility] MG tablet 00:00: mouth of 00 daily. Medicin e leflunomide 2019-04 Yes 20mg Take 1 [facility] (ARAVA) 20 1-18 Tablet by [facility] MG tablet 00:00: mouth of 00 daily. Medicin e leflunomide 2019-04 Yes 20mg Take 1 [facility] (ARAVA) 20 1-18 Tablet by [facility] MG tablet 00:00: mouth of 00 daily. Medicin e Indomethaci 2019-04 2020- No Take by [facility] n 20 MG 1-16 11-16 mouth. College CAPS 16:53: 00:00 of 29 :00 Medicin e AMLODIPINE 2019-04 Yes Take by [facility] BESYLATE OR 1-16 mouth. Colleg e 16:47: of 07 Medicin e GABAPENTIN 2019-04 Yes Take by [facility] don[facility] OR 1-16 mouth. [place] 16:47: of 07 Medicin e carvedilol 2019-04 Yes [id number] 6.25mg Take 6.25 [facility] (COREG) 1-16 mg by [place] 6.25 MG 16:47: mouth 2 of tablet 07 times Medicin daily e (with meals). losartan 2019-04 Yes 100mg Take 100 [facility] (COZAAR) 1-16 mg by [place] 100 MG 16:47: mouth of tablet 07 daily. Medicin e omeprazole 2019-04 Yes 1{capsu Take 1 Cap [facility] (PRILOSEC) 1-16 le} by mouth Colle ge 40 MG 16:47: daily. of capsule 07 Medicin e Fluticasone 2019-04 Yes by [facility] Propionate 1-16 route. [place] (FLONASE 16:47: of ALLERGY 07 Medicin RELIEF NA) e Indomethaci 2019-04 Yes Take by [facility] n 20 MG 1-16 mouth. [place] CAPS 16:03: of 31 Medicin e AMLODIPINE 2019-04 Yes Take by [facility] don[facility] BESYLATE OR 1-16 mouth. Colle e 15:43: of 13 Medicin e GABAPENTIN 2019-04 Yes Take by [facility] don[facility] OR 1-16 mouth. [place] 15:43: of 13 Medicin e carvedilol 2019-04 Yes [id number] 6.25mg Take 6.25 [facility] (COREG) 1-16 mg by [place] 6.25 MG 15:43: mouth 2 of tablet 13 times Medicin daily e (with meals). losartan 2019-04 Yes 100mg Take 100 [facility] (COZAAR) 1-16 mg by [place] 100 MG 15:43: mouth of tablet 13 daily. Medicin e omeprazole 2019- Yes 1{capsu Take 1 Cap [facility] (PRILOSEC) 1-16 le} by mouth Colle ge 40 MG 15:43: daily. of capsule 13 Medicin e Fluticasone 2020-1 Yes by [facility] Propionate 1-16 route. [place] (FLONASE 15:43: of ALLERGY 13 Medicin RELIEF NA) e AMLODIPINE 2019-04 Yes Take by [facility] don[facility] BESYLATE OR 0-05 mouth. Colleg e 13:48: of 25 Medicin e GABAPENTIN 2019-04 Yes Take by [facility] donna OR 0-05 mouth. [place] 13:48: of 25 Medicin e carvedilol 2019-04 Yes [id number] 6.25mg Take 6.25 [facility] (COREG) 0-05 mg by [place] 6.25 MG 13:48: mouth 2 of tablet 25 times Medicin daily e (with meals). losartan 2019-04 Yes 100mg Take 100 [facility] (COZAAR) 0-05 mg by [place] 100 MG 13:48: mouth of tablet 25 daily. Medicin e omeprazole 2019-04 Yes 1{capsu Take 1 Cap [facility] (PRILOSEC) 0-05 le} by mouth Colle ge 40 MG 13:48: daily. of capsule 25 Medicin e Fluticasone 2019- Yes by [facility] Propionate 0-05 route. [place] (FLONASE 13:48: of ALLERGY 25 Medicin RELIEF NA) e ARNUITY 2020-0 Yes INHALE 1 [facility] ELLIPTA 200 9-28 PUFF BY Colle ge MCG/ACT 00:00: MOUTH of AEPB 00 EVERY 24 Medicin HOURS e ARNUITY 2020-0 Yes INHALE 1 [facility] ELLIPTA 200 9-28 PUFF BY Colle ge MCG/ACT 00:00: MOUTH of AEPB 00 EVERY 24 Medicin HOURS e ARNUITY 2020-0 Yes INHALE 1 [facility] ELLIPTA 200 9-28 PUFF BY Colle ge MCG/ACT 00:00: MOUTH of AEPB 00 EVERY 24 Medicin HOURS e ARNUITY 2020-0 Yes INHALE 1 [facility] ELLIPTA 200 9-28 PUFF BY Colle ge MCG/ACT 00:00: MOUTH of AEPB 00 EVERY 24 Medicin HOURS e ARNUITY 2020-0 Yes INHALE 1 [facility] ELLIPTA 200 9-28 PUFF BY Colle ge MCG/ACT 00:00: MOUTH of AEPB 00 EVERY 24 Medicin HOURS e ARNUITY 2020-0 Yes INHALE 1 [facility] ELLIPTA 200 9-28 PUFF BY Colle ge MCG/ACT 00:00: MOUTH of AEPB 00 EVERY 24 Medicin HOURS e ARNUITY 2020-0 Yes INHALE 1 [facility] ELLIPTA 200 01-01 PUFF BY [facility] MCG/ACT 00:00: MOUTH of AEPB 00 EVERY 24 Medicin HOURS e simvastatin 2020-0 2020- No [id number] 20mg Take 20 mg [facility] (ZOCOR) 20 12-18 by mouth [facility] MG tablet 14:17: 00:00 every of 57 :00 evening. Medicin e Hydroxychlo 2019-0 2020- No Take by [facility] roquine 12-18 mouth. College Sulfate 14:17: 00:00 of (PLAQUENIL 33 :00 Medicin OR) e losartan-hy 2019-0 2020- No [id number] 1{tbl} Take 1 Tab [facility] drochloroth 12-18 by mouth Col lege iazide 14:17: 00:00 daily. of (HYZAAR) 18 :00 Medicin 100-25 MG e per tablet Fluticasone 2020-0 Yes by [facility] Propionate 12-18 route. [place] (FLONASE 14:07: of ALLERGY 28 Medicin RELIEF NA) e AMLODIPINE 2019-0 Yes Take by [facility] don[facility] BESYLATE OR - mouth. Colleg e 14:06: of 10 Medicin e GABAPENTIN 2019-0 Yes Take by [facility] donna OR - mouth. [place] 14:06: of 10 Medicin e losartan 2019-0 Yes 100mg Take 100 [facility] (COZAAR) 9-14 mg by [place] 100 MG 14:06: mouth of tablet 10 daily. Medicin e omeprazole 2019-0 Yes 1{capsu Take 1 Cap [facility] (PRILOSEC) 12-18 le} by mouth Colle ge 40 MG 14:06: daily. of capsule 10 Medicin e carvedilol 2020-0 Yes [id number] 6.25mg Take 6.25 [facility] (COREG) 9-14 mg by [place] 6.25 MG 14:03: mouth 2 of tablet 32 times Medicin daily e (with meals). pioglitazon 2019-0 2020- No 15mg Take 15 mg [facility] e (ACTOS) 12-14 by mouth Colle ge 15 MG 00:00: 00:00 daily. of tablet 00 :00 Medicin e dicyclomine 2019-0 Yes 20mg Take 20 mg [facility] (BENTYL) 20 12-06 by mouth [facility] MG tablet 00:00: daily. of 00 Medicin e dicyclomine 2020-0 Yes 20mg Take 20 mg [facility] (BENTYL) 20 9-02 by mouth [facility] MG tablet 00:00: daily. of 00 Medicin e dicyclomine 2020-0 Yes 20mg Take 20 mg [facility] (BENTYL) 20 9-02 by mouth [facility] MG tablet 00:00: daily. of 00 Medicin e dicyclomine 2020-0 Yes 20mg Take 20 mg [facility] (BENTYL) 20 9- by mouth [facility] MG tablet 00:00: daily. of 00 Medicin e dicyclomine 2020-0 Yes 20mg Take 20 mg [facility] (BENTYL) 20 9- by mouth [facility] MG tablet 00:00: daily. of 00 Medicin e dicyclomine 2020-0 Yes 20mg Take 20 mg [facility] (BENTYL) 20 9- by mouth [facility] MG tablet 00:00: daily. of 00 Medicin e dicyclomine 2020-0 Yes 20mg Take 20 mg [facility] (BENTYL) 20 - by mouth [facility] MG tablet 00:00: daily. of 00 Medicin e pioglitazon 2020-0 Yes 30mg Take 30 mg [facility] (ACTOS) 8-19 by mouth Colleg e 30 MG 00:00: daily. of tablet 00 Medicin e pioglitazon 2020-0 Yes 30mg Take 30 mg [facility] e (ACTOS) 8-19 by mouth Colleg e 30 MG 00:00: daily. of tablet 00 Medicin e pioglitazon 2020-0 Yes 30mg Take 30 mg [facility] (ACTOS) 8-19 by mouth Colleg e 30 MG 00:00: daily. of tablet 00 Medicin e pioglitazon 2020-0 Yes 30mg Take 30 mg [facility] (ACTOS) 8-19 by mouth Colleg e 30 MG 00:00: daily. of tablet 00 Medicin e pioglitazon 2020-0 2021- No 30mg Take 30 mg [facility] e (ACTOS) 8-19 03-29 by mouth Colle ge 30 MG 00:00: 00:00 daily. of tablet 00 :00 Medicin e albuterol 2020-0 Yes INHALE 2 [facility] 108 (90 8-04 PUFFS BY College base) 00:00: MOUTH of mcg/act 00 EVERY 6 Medicin inhaler HOURS FOR e 30 DAYS albuterol 2020-0 Yes INHALE 2 [facility] 108 (90 8-04 PUFFS BY College base) 00:00: MOUTH of mcg/act 00 EVERY 6 Medicin inhaler HOURS FOR e 30 DAYS albuterol 2020-0 Yes INHALE 2 [facility] 108 (90 8-04 PUFFS BY College base) 00:00: MOUTH of mcg/act 00 EVERY 6 Medicin inhaler HOURS FOR e 30 DAYS albuterol 2020-0 Yes INHALE 2 [facility] 108 (90 8-04 PUFFS BY College base) 00:00: MOUTH of mcg/act 00 EVERY 6 Medicin inhaler HOURS FOR e 30 DAYS albuterol 2020-0 Yes INHALE 2 [facility] 108 (90 8-04 PUFFS BY College base) 00:00: MOUTH of mcg/act 00 EVERY 6 Medicin inhaler HOURS FOR e 30 DAYS albuterol 2020-0 Yes INHALE 2 [facility] 108 (90 8-04 PUFFS BY College base) 00:00: MOUTH of mcg/act 00 EVERY 6 Medicin inhaler HOURS FOR e 30 DAYS albuterol 2020-0 Yes INHALE 2 [facility] 108 (90 8-04 PUFFS BY College base) 00:00: MOUTH of mcg/act 00 EVERY 6 Medicin inhaler HOURS FOR e 30 DAYS albuterol 2020-0 Yes INHALE 2 [facility] 108 (90 8-04 PUFFS BY College base) 00:00: MOUTH of mcg/act 00 EVERY 6 Medicin inhaler HOURS FOR e 30 DAYS albuterol 2020-0 Yes INHALE 2 [facility] 108 (90 8-04 PUFFS BY College base) 00:00: MOUTH of mcg/act 00 EVERY 6 Medicin inhaler HOURS FOR e 30 DAYS gabapentin 2020-0 Yes 300mg Take 300 [facility] (NEURONTIN) 7-27 mg by College 300 MG 00:00: mouth of capsule 00 daily. Medicin e gabapentin 2020-0 Yes 300mg Take 300 [facility] (NEURONTIN) 7-27 mg by [facility] 300 MG 00:00: mouth of capsule 00 daily. Medicin e gabapentin 2020-0 Yes 300mg Take 300 [facility] (NEURONTIN) 7-27 mg by College 300 MG 00:00: mouth of capsule 00 daily. Medicin e gabapentin 2020-0 Yes 300mg Take 300 [facility] (NEURONTIN) 7-27 mg by College 300 MG 00:00: mouth of capsule 00 daily. Medicin e gabapentin 2020-0 Yes 300mg Take 300 [facility] (NEURONTIN) 7-27 mg by [place] 300 MG 00:00: mouth of capsule 00 daily. Medicin e gabapentin 2020-0 Yes 300mg Take 300 [facility] (NEURONTIN) 7-27 mg by [place] 300 MG 00:00: mouth of capsule 00 daily. Medicin e gabapentin 2020-0 Yes 300mg Take 300 [facility] (NEURONTIN) 7-27 mg by [facility] 300 MG 00:00: mouth of capsule 00 daily. Medicin e gabapentin 2020-0 Yes 300mg Take 300 [facility] (NEURONTIN) 7-27 mg by [place] 300 MG 00:00: mouth of capsule 00 daily. Medicin e gabapentin 2020-0 Yes 300mg Take 300 [facility] (NEURONTIN) 7-27 mg by [place] 300 MG 00:00: mouth of capsule 00 daily. Medicin e torsemide 2020-0 Yes 20mg Take 20 mg [facility] (DEMADEX) 7-08 by mouth Colleg e 20 MG 00:00: every 3 of tablet 00 days. Medicin e torsemide 2020-0 Yes 20mg Take 20 mg [facility] (DEMADEX) 7-08 by mouth Colleg e 20 MG 00:00: every 3 of tablet 00 days. Medicin e torsemide 2020-0 Yes 20mg Take 20 mg [facility] (DEMADEX) 7-08 by mouth Colleg e 20 MG 00:00: every 3 of tablet 00 days. Medicin e torsemide 2020-0 Yes 20mg Take 20 mg [facility] (DEMADEX) 7-08 by mouth Colleg e 20 MG 00:00: every 3 of tablet 00 days. Medicin e torsemide 2020-0 Yes 20mg Take 20 mg [facility] (DEMADEX) 7-08 by mouth Colleg e 20 MG 00:00: every 3 of tablet 00 days. Medicin e torsemide 2020-0 Yes 20mg Take 20 mg [facility] (DEMADEX) 7-08 by mouth Colleg e 20 MG 00:00: every 3 of tablet 00 days. Medicin e torsemide 2020-0 Yes 20mg Take 20 mg [facility] (DEMADEX) 7-08 by mouth Colleg e 20 MG 00:00: every 3 of tablet 00 days. Medicin e torsemide 2020-0 Yes 20mg Take 20 mg [facility] (DEMADEX) 7-08 by mouth Colleg e 20 MG 00:00: every 3 of tablet 00 days. Medicin e torsemide 2019-0 Yes 20mg Take 20 mg [facility] (DEMADEX) 7-08 by mouth Colleg e 20 MG 00:00: every 3 of tablet 00 days. Medicin e alprazolam 2017-0 Yes [facility] (XANAX) 0.5 1-27 College MG tablet 00:00: of 00 Medicin e alprazolam 2017-0 Yes [facility] (XANAX) 0.5 1-27 [facility] MG tablet 00:00: of 00 Medicin e alprazolam 2016-0 Yes [facility] (XANAX) 0.5 1-27 [facility] MG tablet 00:00: of 00 Medicin e alprazolam 0 2020- No [facility] (XANAX) 0.5 1-27 11-16 College MG tablet 00:00: 00:00 of 00 :00 Medicin e hydrochloro 2016-0 2020- No [facility] thiazide 1-25 09-14 [facility] 12.5 MG 00:00: 00:00 of TABS 00 :00 Medicin e amlodipine 0 Yes [facility] (NORVASC) 1-20 College 10 MG 00:00: of tablet 00 Medicin e amlodipine 0 Yes [facility] (NORVASC) 1-20 College 10 MG 00:00: of tablet 00 Medicin e amlodipine 0 Yes [facility] (NORVASC) 1-20 College 10 MG 00:00: of tablet 00 Medicin e amlodipine 0 Yes 10mg Take 10 mg [facility] (NORVASC) 1-20 by mouth Colleg e 10 MG 00:00: daily. of tablet 00 Medicin e amlodipine 0 Yes [facility] (NORVASC) 1-20 College 10 MG 00:00: of tablet 00 Medicin e amlodipine 0 Yes 10mg Take 10 mg [facility] (NORVASC) 1-20 by mouth Colleg e 10 MG 00:00: daily. of tablet 00 Medicin e amlodipine 2017-0 Yes 10mg Take 10 mg [facility] (NORVASC) 1-20 by mouth Colleg e 10 MG 00:00: daily. of tablet 00 Medicin e amlodipine 2017-0 Yes 10mg Take 10 mg [facility] (NORVASC) 1-20 by mouth Colleg e 10 MG 00:00: daily. of tablet 00 Medicin e amlodipine 2017-0 Yes [facility] (NORVASC) 1-20 [facility] 10 MG 00:00: of tablet 00 Medicin e simvastatin 2017-0 2020- No [facility] (ZOCOR) 40 1-11 09-14 College MG tablet 00:00: 00:00 of 00 :00 Medicin e donepezil 2017-0 Yes [facility] (ARICEPT) 1-10 [facility] 10 MG 00:00: of tablet 00 Medicin e donepezil 2017-0 Yes [facility] (ARICEPT) 1-10 College 10 MG 00:00: of tablet 00 Medicin e donepezil 2017-0 Yes [facility] (ARICEPT) 1-10 [facility] 10 MG 00:00: of tablet 00 Medicin e donepezil 2017-0 Yes [facility] (ARICEPT) 1-10 [facility] 10 MG 00:00: of tablet 00 Medicin e donepezil 2017-0 Yes [facility] (ARICEPT) 1-10 College 10 MG 00:00: of tablet 00 Medicin e donepezil 2017-0 Yes [facility] (ARICEPT) 1-10 College 10 MG 00:00: of tablet 00 Medicin e donepezil 2017-0 Yes [facility] (ARICEPT) 1-10 [facility] 10 MG 00:00: of tablet 00 Medicin e donepezil 2017-0 Yes [facility] (ARICEPT) 1-10 College 10 MG 00:00: of tablet 00 Medicin e donepezil 2017-0 Yes [facility] (ARICEPT) 1-10 [facility] 10 MG 00:00: of tablet 00 Medicin e sertraline 2016-0 2020- No [facility] (ZOLOFT) 50 1-10 09-14 College MG tablet 00:00: 00:00 of 00 :00 Medicin e phenazopyri 2015-0 Yes 200mg Take 1 Tab [facility] dine 5-17 by mouth 3 College (PYRIDIUM) 00:00: times of 200 MG 00 daily. Medicin tablet e phenazopyri Yes 200mg Take 1 Tab [facility] dine 5-17 by mouth 3 College (PYRIDIUM) 00:00: times of 200 MG 00 daily. Medicin tablet e phenazopyri Yes 200mg Take 1 Tab [facility] dine 5-17 by mouth 3 College (PYRIDIUM) 00:00: times of 200 MG 00 daily. Medicin tablet e phenazopyri Yes 200mg Take 1 Tab [facility] dine 5-17 by mouth 3 College (PYRIDIUM) 00:00: times of 200 MG 00 daily. Medicin tablet e phenazopyri Yes 200mg Take 1 Tab [facility] dine 5-17 by mouth 3 College (PYRIDIUM) 00:00: times of 200 MG 00 daily. Medicin tablet e phenazopyri 2020- No 200mg Take 1 Tab [facility] dine 5-17 03-25 by mouth 3 College (PYRIDIUM) 00:00: 00:00 times of 200 MG 00 :00 daily. Medicin tablet e tramadol 2019- No [id number] 50mg Take 1 Tab [facility] (ULTRAM) 50 08-07 by mouth Col lege MG tablet 00:00: 00:00 every 8 of 00 :00 hours as Medicin needed for e Pain. glipiZIDE 2014-04 2020- No [facility] (GLUCOTROL) 05-07 [place] 5 MG tablet 00:00: 00:00 of 00 :00 Medicin e divalproex 2014-04 Yes 500mg Take 500 Un [facility] ER 0-21 mg by ity [facility] ([place] 500 mg 00 bedtime. Medic al 24 hr Branch tablet divalproex 2014-04 Yes 500mg Take 500 Un [facility] ER 0-21 mg by ity of ([place] 500 mg 00 bedtime. Medic al 24 hr Branch tablet divalproex 2014-04 Yes 500mg Take 500 Un [facility] ER 0-21 mg by ity of ([place] 500 mg 00 bedtime. Medic al 24 hr Branch tablet divalproex 2014-04 Yes 500mg Take 500 Un [facility] ER 0-21 mg by ity of ([place] 500 mg 00 bedtime. Medic al 24 hr Branch tablet divalproex 2014-04 Yes 500mg Take 500 Un [facility] ER 0-21 mg by ity of ([place]OTE [place] 500 mg 00 bedtime. Medic al 24 hr Branch tablet divalproex 2014-04 Yes 500mg Take 500 Un [facility] ER 0-21 mg by ity of ([place] 500 mg 00 bedtime. Medic al 24 hr Branch tablet divalproex 2014-04- No 500mg Take 500 U nivers ER 0-21 07-23 mg by ity of (DEPAKOTE 00:00: 00:00 mouth at [place] [facility]) 500 mg 00 :00 bedtime. Medic al 24 hr Branch tablet divalproex 2014-04 No 500mg Take 500 U nivers ER 0-21 07-23 mg by ity of (DEPAKOTE 00:00: 00:00 mouth at [place] [facility] ER) 500 mg 00 :00 bedtime. Medic al 24 hr Branch tablet hydroxychlo 2014-04 Yes 200mg Take 200 U [...] 200 mg 00 daily. Medical tablet Branch SERTraline 2014-04 Yes 50mg Take 50 mg [facility] (ZOLOFT) 50 0-13 by mouth ity of mg tablet 00:00: daily. [place] 00 Medical Branch SERTraline 2014-04 Yes 50mg Take 50 mg [facility]ivers (ZOLOFT) 50 0-13 by mouth ity of mg tablet 00:00: daily. [facility] SERTraline 2014-04 Yes 50mg Take 50 mg U nivers (ZOLOFT) 50 0-13 by mouth ity of mg tablet 00:00: daily. [facility] SERTraline 2014-04 Yes 50mg Take 50 mg U nivers (ZOLOFT) 50 0-13 by mouth ity of mg tablet 00:00: daily. [facility] SERTraline 2014-04 Yes 50mg Take 50 mg U nivers (ZOLOFT) 50 0-13 by mouth ity of mg tablet 00:00: daily. [facility] SERTraline 2014-04 Yes 50mg Take 50 mg U nivers (ZOLOFT) 50 0-13 by mouth ity of mg tablet 00:00: daily. [place] [facility] SERTraline 2014-04- No 50mg Take 50 mg Univers (ZOLOFT) 50 0-13 07-23 by mouth ity of mg tablet 00:00: 00:00 daily. [place] [address] [facility] SERTraline 2014-04- No 50mg Take 50 mg Univers (ZOLOFT) 50 0-13 07-23 by mouth ity of mg tablet 00:00: 00:00 daily. [place] 00 :[address] [facility] amLODIPine 2014-04 Yes 10mg Take 10 mg U nivers (NORVASC) 0-06 by mouth ity of 10 mg 00:00: daily. [place] tablet [facility] amLODIPine 2014-04 Yes 10mg Take 10 mg U nivers (NORVASC) 0-06 by mouth ity of 10 mg 00:00: daily. [place] tablet [facility] amLODIPine 2014-04 Yes 10mg Take 10 mg U nivers (NORVASC) 0-06 by mouth ity of 10 mg 00:00: daily. [place] tablet [facility] amLODIPine 2014-04 Yes 10mg Take 10 mg U nivers (NORVASC) 0-06 by mouth ity of 10 mg 00:00: daily. [place] tablet [facility] amLODIPine 2014-04 Yes 10mg Take 10 mg U nivers (NORVASC) 0-06 by mouth ity of 10 mg 00:00: daily. [place] tablet [facility] amLODIPine 2014-04 Yes 10mg Take 10 mg U nivers (NORVASC) 0-06 by mouth ity of 10 mg 00:00: daily. [place] tablet 00 [facility] amLODIPine 2014-04 Yes 10mg Take 10 mg U nivers (NORVASC) 0-06 by mouth ity of 10 mg 00:00: daily. [place] tablet 00 Medical Branch amLODIPine 2014-04 Yes 10mg Take 10 mg U nivers (NORVASC) 0-06 by mouth ity of 10 mg 00:00: daily. [place] tablet [address] [facility] amLODIPine 2014-04 Yes 10mg Take 10 mg U nivers (NORVASC) 0-06 by mouth ity of 10 mg 00:00: daily. [place] tablet [address] [facility] amLODIPine 2014-04 Yes 10mg Take 10 mg U nivers (NORVASC) 0-06 by mouth ity of 10 mg 00:00: daily. [place] tablet [address] [facility] amLODIPine 2014-04 Yes 10mg Take 10 mg U nivers (NORVASC) 0-06 by mouth ity of 10 mg 00:00: daily. [place] tablet [address] [facility] amLODIPine 2014-04 Yes 10mg Take 10 mg U nivers (NORVASC) 0-06 by mouth ity of 10 mg 00:00: daily. [place] tablet [address] [facility] amLODIPine 2014-04 Yes 10mg Take 10 mg U nivers (NORVASC) 0-06 by mouth ity of 10 mg 00:00: daily. [place] tablet [address] [facility] amLODIPine 2014-04 Yes 10mg Take 10 mg U nivers (NORVASC) 0-06 by mouth ity of 10 mg 00:00: daily. [place] tablet [address] [facility] amLODIPine 2014-04 Yes 10mg Take 10 mg U nivers (NORVASC) 0-06 by mouth ity of 10 mg 00:00: daily. [place] tablet [address] [facility] amLODIPine 2014-04 Yes 10mg Take 10 mg U nivers (NORVASC) 0-06 by mouth ity of 10 mg 00:00: daily. [place] tablet [address] [facility] potassium Yes 10meq Take 10 Univ ers chloride 9-08 mEq by ity of (K-DUR) 10 00:00: mouth [place] mEq CR 00 daily. [facility] furosemide Yes 20mg Take 20 mg U nivers (LASIX) 20 9-08 by mouth ity o f mg tablet 00:00: daily. [place] [facility] potassium Yes 10meq Take 10 Univ ers chloride 9-08 mEq by ity of (K-DUR) 10 00:00: mouth [place] mEq CR 00 daily. Medical tablet Branch simvastatin Yes 40mg Take 40 mg Univers (ZOCOR) 40 9-08 by mouth ity o f mg tablet 00:00: daily. .5 [place] 00 qd Medical Branch furosemide Yes 20mg Take 20 mg U nivers (LASIX) 20 9-08 by mouth ity o f mg tablet 00:00: daily. [place] [facility] potassium Yes 10meq Take 10 Univ ers chloride 9-08 mEq by ity of (K-DUR) 10 00:00: mouth [place] mEq CR 00 daily. Medical tablet Branch simvastatin Yes 40mg Take 40 mg Univers (ZOCOR) 40 9-08 by mouth ity o f mg tablet 00:00: daily. .5 [place] 00 qd Medical Branch furosemide Yes 20mg Take 20 mg U nivers (LASIX) 20 9-08 by mouth ity o f mg tablet 00:00: daily. [place] [facility] potassium Yes 10meq Take 10 Univ ers chloride 9-08 mEq by ity of (K-DUR) 10 00:00: mouth [place] mEq CR 00 daily. Medical tablet Branch simvastatin Yes 40mg Take 40 mg Univers (ZOCOR) 40 9-08 by mouth ity o f mg tablet 00:00: daily. .5 [place] 00 qd Medical Branch furosemide Yes 20mg Take 20 mg U nivers (LASIX) 20 9-08 by mouth ity o f mg tablet 00:00: daily. [place] [facility] potassium Yes 10meq Take 10 Univ ers chloride 9-08 mEq by ity of (K-DUR) 10 00:00: mouth [place] mEq CR 00 daily. Medical tablet Branch simvastatin Yes 40mg Take 40 mg Univers (ZOCOR) 40 9-08 by mouth ity o f mg tablet 00:00: daily. .5 [place] 00 qd Medical Branch furosemide Yes 20mg Take 20 mg U nivers (LASIX) 20 9-08 by mouth ity o f mg tablet 00:00: daily. [place] [facility] potassium Yes 10meq Take 10 Univ ers chloride 9-08 mEq by ity of (K-DUR) 10 00:00: mouth [place] mEq CR 00 daily. Medical tablet Branch simvastatin Yes 40mg Take 40 mg Univers (ZOCOR) 40 9-08 by mouth ity o f mg tablet 00:00: daily. .5 [place] 00 qd Medical Branch furosemide Yes 20mg Take 20 mg U nivers (LASIX) 20 9-08 by mouth ity o f mg tablet 00:00: daily. [place] 00 Medical Branch potassium Yes 10meq Take 10 Univ ers chloride 9-08 mEq by ity of (K-DUR) 10 00:00: mouth [place] mEq CR 00 daily. Medical tablet Branch simvastatin Yes 40mg Take 40 mg Univers (ZOCOR) 40 9-08 by mouth ity o f mg tablet 00:00: daily. .5 [place] 00 qd Medical Branch potassium Yes 10meq Take 10 [...] mEq CR 00 daily. Medical tablet Branch furosemide 2020- No 20mg Take 20 mg Univers (LASIX) 20 12-12 by mouth ity of mg tablet 00:00: 00:00 daily. [place] 00 :00 Medical Branch simvastatin 2020- No 40mg Take 40 mg Univers (ZOCOR) 40 12-12 by mouth ity of mg tablet 00:00: 00:00 daily. .5 [place] 00 :00 qd Medical Branch furosemide 2020- No 20mg Take 20 mg Univers (LASIX) 20 12-12 by mouth ity of mg tablet 00:00: 00:00 daily. [place] 00 :00 Medical Branch simvastatin 2020- No 40mg Take 40 mg Univers (ZOCOR) 40 12-12 by mouth ity of mg tablet 00:00: 00:00 daily. .5 [place] 00 :00 qd Medical Branch lidocaine-p Yes 2.5{spr Apply 2.5 Univers rilocaine 9-02 ay} Sprays to ity o f (EMLA) 00:00: area(s) as [place] 2.5-2.5 % 00 needed. Medical cream Branch lidocaine-p Yes 2.5{spr Apply 2.5 Univers rilocaine 9-02 ay} Sprays to ity o f (EMLA) 00:00: area(s) as [place] 2.5-2.5 % 00 needed. Medical cream Branch lidocaine-p Yes 2.5{spr Apply 2.5 Univers rilocaine 9-02 ay} Sprays to ity o f (EMLA) 00:00: area(s) as [place] 2.5-2.5 % 00 needed. Medical cream Branch lidocaine-p Yes 2.5{spr Apply 2.5 Univers rilocaine 9-02 ay} Sprays to ity o f (EMLA) 00:00: area(s) as [place] 2.5-2.5 % 00 needed. Medical cream Branch lidocaine-p Yes 2.5{spr Apply 2.5 Univers rilocaine 12-06 ay} Sprays to ity o f (EMLA) 00:00: area(s) as [place] 2.5-2.5 % 00 needed. Medical cream Branch lidocaine-p Yes 2.5{spr Apply 2.5 Univers rilocaine 12-06 ay} Sprays to ity o f (EMLA) 00:00: area(s) as [place] 2.5-2.5 % 00 needed. Medical cream Branch lidocaine-p 2020- No 2.5{spr Apply 2.5 Univers rilocaine 12-06 ay} Sprays to ity of (EMLA) 00:00: 00:00 [place](s[place] 2.5-2.5 % 00 :00 needed. Medical cream Branch lidocaine-p 2020- No 2.5{spr Apply 2.5 Univers rilocaine 12-06 ay} Sprays to ity of (EMLA) 00:00: 00:00 [place](s[place] 2.5-2.5 % 00 :00 needed. Medical cream Branch fluticasone Yes 50{spra Use 50 U nivers 50 8-28 y} Sprays in ity of mcg/actuati 00:00: each [place] on nasal 00 nostril Medical spray daily. 2 Branch puffs once daily omeprazole Yes 40mg Take 40 mg U nivers (PRILOSEC) 8-28 by mouth ity o f 40 mg 00:00: daily. [place] capsule Medical Branch fluticasone Yes 50{spra Use 50 U nivers 50 8-28 y} Sprays in ity of mcg/actuati 00:00: each [place] on nasal 00 nostril Medical spray daily. 2 Branch puffs once daily glipiZIDE Yes 5mg Take 5 mg Uni vers (GLUCOTROL) 8-28 by mouth 2 it y of 5 mg tablet 00:00: (two) [place] 00 times Medical daily. Branch omeprazole Yes 40mg Take 40 mg U nivers (PRILOSEC) 8-28 by mouth ity o f 40 mg 00:00: daily. [place] capsule 00 Medical Branch fluticasone 0 Yes 50{spra Use 50 U nivers 50 8-28 y} Sprays in ity of mcg/actuati 00:00: each [place] on nasal 00 nostril Medical spray daily. 2 Branch puffs once daily glipiZIDE 2014-0 Yes 5mg Take 5 mg Uni vers (GLUCOTROL) 8-28 by mouth 2 it y of 5 mg tablet 00:00: (two) [place] 00 times Medical daily. Branch omeprazole Yes 40mg Take 40 mg U nivers (PRILOSEC) 8-28 by mouth ity o f 40 mg 00:00: daily. [facility] Medical Branch fluticasone Yes 50{spra Use 50 U nivers 50 8-28 y} Sprays in ity of mcg/actuati 00:00: each [place] on nasal 00 nostril Medical spray daily. 2 Branch puffs once daily glipiZIDE Yes 5mg Take 5 mg Uni vers (GLUCOTROL) 8-28 by mouth 2 it y of 5 mg tablet 00:00: (two) [place] 00 times Medical daily. Branch omeprazole Yes 40mg Take 40 mg U nivers (PRILOSEC) 8-28 by mouth ity o f 40 mg 00:00: daily. [facility] Medical Branch fluticasone Yes 50{spra Use 50 U nivers 50 8-28 y} Sprays in ity of mcg/actuati 00:00: each [place] on nasal 00 nostril Medical spray daily. 2 Branch puffs once daily glipiZIDE Yes 5mg Take 5 mg Uni vers (GLUCOTROL) 8-28 by mouth 2 it y of 5 mg tablet 00:00: (two) [place] 00 times Medical daily. Branch omeprazole Yes 40mg Take 40 mg U nivers (PRILOSEC) 8-28 by mouth ity o f 40 mg 00:00: daily. [facility] Medical Branch fluticasone 0 Yes 50{spra Use 50 U nivers 50 8-28 y} Sprays in ity of mcg/actuati 00:00: each [place] on nasal 00 nostril Medical spray daily. 2 Branch puffs once daily glipiZIDE 0 Yes 5mg Take 5 mg Uni vers (GLUCOTROL) 8-28 by mouth 2 it y of 5 mg tablet 00:00: (two) [place] 00 times Medical daily. Branch omeprazole 0 Yes 40mg Take 40 mg U nivers (PRILOSEC) 8-28 by mouth ity o f 40 mg 00:00: daily. [place] capsule 00 Medical Branch fluticasone 0 Yes 50{spra Use 50 U nivers 50 8-28 y} Sprays in ity of mcg/actuati 00:00: each [place] on nasal 00 nostril Medical spray daily. 2 Branch puffs once daily glipiZIDE Yes 5mg Take 5 mg Uni vers (GLUCOTROL) 8-28 by mouth 2 it y of 5 mg tablet 00:00: (two) [place] 00 times Medical daily. Branch omeprazole Yes 40mg Take 40 mg U nivers (PRILOSEC) 8-28 by mouth ity o f 40 mg 00:00: daily. [facility] Medical Branch fluticasone Yes 50{spra Use 50 U nivers 50 8-28 y} Sprays in ity of mcg/actuati 00:00: each [place] on nasal 00 nostril Medical spray daily. 2 Branch puffs once daily omeprazole Yes 40mg Take 40 mg U nivers (PRILOSEC) 8-28 by mouth ity o f 40 mg 00:00: daily. [facility] Medical Branch fluticasone Yes 50{spra Use 50 U nivers 50 8-28 y} Sprays in ity of mcg/actuati 00:00: each [place] on nasal 00 nostril Medical spray daily. 2 Branch puffs once daily omeprazole Yes 40mg Take 40 mg U nivers (PRILOSEC) 8-28 by mouth ity o f 40 mg 00:00: daily. [facility] Medical Branch fluticasone 0 Yes 50{spra Use 50 U nivers 50 8-28 y} Sprays in ity of mcg/actuati 00:00: each [place] on nasal 00 nostril Medical spray daily. 2 Branch puffs once daily omeprazole Yes 40mg Take 40 mg U nivers (PRILOSEC) 8-28 by mouth ity o f 40 mg 00:00: daily. [facility] Medical Branch fluticasone Yes 50{spra Use 50 U nivers 50 8-28 y} Sprays in ity of mcg/actuati 00:00: each [place] on nasal 00 nostril Medical spray daily. 2 Branch puffs once daily fluticasone Yes 50{spra Use 50 U nivers 50 8-28 y} Sprays in ity of mcg/actuati 00:00: each [place] on nasal 00 nostril Medical spray daily. 2 Branch puffs once daily omeprazole 2014-0 Yes 40mg Take 40 mg U nivers (PRILOSEC) 8-28 by mouth ity o f 40 mg 00:00: daily. [facility] omeprazole 0 Yes 40mg Take 40 mg U nivers (PRILOSEC) 8-28 by mouth ity o f 40 mg 00:00: daily. [facility] Branch fluticasone Yes 50{spra Use 50 U nivers 50 8-28 y} Sprays in ity of mcg/actuati 00:00: each [place] on nasal 00 nostril Medical spray daily. 2 Branch puffs once daily omeprazole Yes 40mg Take 40 mg U nivers (PRILOSEC) 8-28 by mouth ity o f 40 mg 00:00: daily. [facility] fluticasone Yes 50{spra Use 50 U nivers 50 8-28 y} Sprays in ity of mcg/actuati 00:00: each [place] on nasal 00 nostril Medical spray daily. 2 Branch puffs once daily omeprazole 0 Yes 40mg Take 40 mg U nivers (PRILOSEC) 8-28 by mouth ity o f 40 mg 00:00: daily. [facility] Branch fluticasone Yes 50{spra Use 50 U nivers 50 8-28 y} Sprays in ity of mcg/actuati 00:00: each [place] on nasal 00 nostril Medical spray daily. 2 Branch puffs once daily omeprazole 0 Yes 40mg Take 40 mg U nivers (PRILOSEC) 8-28 by mouth ity o f 40 mg 00:00: daily. [facility] Medical Branch fluticasone Yes 50{spra Use 50 U nivers 50 8-28 y} Sprays in ity of mcg/actuati 00:00: each [place] on nasal 00 nostril Medical spray daily. 2 Branch puffs once daily omeprazole Yes 40mg Take 40 mg U nivers (PRILOSEC) 12-01 by mouth ity o f 40 mg 00:00: daily. [place] capsule 00 Medical Branch glipiZIDE 2020- No 5mg Take 5 mg Un [facility] (GLUCOTROL) 12-01 by mouth 2 i ty of 5 mg tablet 00:00: 00:00 (two[place] :[place] times Medical daily. Branch glipiZIDE No 5mg Take 5 mg [facility] [place] (GLUCOTROL) 12-01 by mouth 2 i ty of 5 mg tablet 00:00: 00:00 (two[place] :[place] times Medical daily. Branch ACCU-CHEK 2015-0 [place] daily. [place] 8-18 ity of TEST STRP 00:00: [place] strip 00 Medical Branch ACCU-CHEK 2015-0 Yes daily. [place] 8-18 ity of TEST STRP 00:00: [place] strip Medical Branch ACCU-CHEK 2015-0 Yes daily. [place] 8-18 ity of TEST STRP 00:00: [place] strip 00 Medical Branch ACCU-CHEK 2015-0 Yes daily. [place] 8-18 ity of TEST STRP 00:00: [place] strip Medical Branch ACCU-CHEK 2015-0 Yes daily. Univer s SANTOS PLUS 8-18 ity of TEST STRP 00:00: [place] strip 00 Medical Branch ACCU-CHEK 2015-0 Yes daily. [place] 8-18 ity of TEST STRP 00:00: [place] strip 00 Medical Branch ACCU-CHEK 2015-0 Yes daily. [place] 8-18 ity of TEST STRP 00:00: [place] strip 00 Medical Branch ACCU-CHEK 2015-0 Yes daily. [place] 8-18 ity of TEST STRP 00:00: [place] strip 00 Medical Branch ACCU-CHEK 2015-0 Yes daily. Univer s SANTOS PLUS 8-18 ity of TEST STRP 00:00: [place] strip 00 Medical Branch ACCU-CHEK 2015-0 Yes daily. Univer s SANTOS PLUS 8-18 ity of TEST STRP 00:00: [place] strip 00 Medical Branch ACCU-CHEK 2015-0 Yes daily. Univer s SANTOS PLUS 8-18 ity of TEST STRP 00:00: [place] strip 00 Medical Branch ACCU-CHEK 2015-0 Yes daily. Univer s SANTOS PLUS 8-18 ity of TEST STRP 00:00: [place] strip 00 Medical Branch ACCU-CHEK 2015-0 Yes daily. Univer s SANTOS PLUS 8-18 ity of TEST STRP 00:00: [place] strip 00 Medical Branch ACCU-CHEK 2015-0 Yes daily. Univer s SANTOS PLUS 8-18 ity of TEST STRP 00:00: [place] strip 00 Medical Branch ACCU-CHEK 2015-0 Yes daily. Univer s SANTOS PLUS 8-18 ity of TEST STRP 00:00: [place] strip 00 Medical Branch ACCU-CHEK 2015-0 Yes daily. Univer s SANTOS PLUS 8-18 ity of TEST STRP 00:00: [place] strip 00 Medical Branch acetaminoph 2014-0 Yes 300{tbl Take 300 Univers en-codeine 8-12 [...] 10 1-14 l MG TABS 11:19: SIMVASTATIN No 1 po qd Mem [facility] 40 MG TABS 1-14 l 11:19: AMLODIPINE No 1 po qd [place] BESYLATE 10 1-14 l MG TABS 11:19: SIMVASTATIN No 1 po qd Mem [facility] 40 MG TABS 1-14 l 11:19: AMLODIPINE No 1 po qd [place] BESYLATE 10 1-14 l MG TABS 11:19: SIMVASTATIN No 1 po qd Mem [facility] 40 MG TABS 1-14 l 11:19: AMLODIPINE No 1 po qd [place] BESYLATE 10 1-14 l MG TABS 11:19: SIMVASTATIN No 1 po qd Mem [facility]ria 40 MG TABS 1-14 l 11:19: AMLODIPINE No 1 po qd [place] BESYLATE 10 1-14 l MG TABS 11:19: SIMVASTATIN 2014-0 No 1 po qd Mem [facility]ria 40 MG TABS 1-14 l 11:19: AMLODIPINE 2014-0 No 1 po qd [place] BESYLATE 10 1-14 l MG TABS 11:19: SIMVASTATIN 2014-0 No 1 po qd Mem [...] BESYLATE 10 1-27 l MG TABS 10:42: 00 SIMVASTATIN 2011-04 No 1 po qd [...] 40 MG TABS 1-27 l 10:42: [place] AMLODIPINE 2011-04 No 1 po qd [place] BESYLATE 10 1-27 l MG TABS 10:42: [place] SIMVASTATIN 2011-04 No 1 po qd Mem [facility]ria 40 MG TABS 1-27 l 10:42: [place] AMLODIPINE 2011-04 No 1 po qd [place] BESYLATE 10 1-27 l MG TABS 10:42: [place] 00 SIMVASTATIN No 1 po qd Mem [facility] 40 MG TABS 7-26 l 08:02: [place] 43 AMLODIPINE No 1 po qd [place] BESYLATE 10 7-26 l MG TABS 08:02: [place] 43 SIMVASTATIN No 1 po qd Mem oria 40 MG TABS 7-26 l 08:02: [place] 43 AMLODIPINE No 1 po qd [place] BESYLATE 10 7-26 l MG TABS 08:02: [place] 43 SIMVASTATIN No 1 po qd Mem [facility]ria 40 MG TABS 7-26 l 08:02: [place] 43 AMLODIPINE No 1 po qd [place] BESYLATE 10 7-26 l MG TABS 08:02: [place] 43 SIMVASTATIN No 1 po qd Mem [facility] 40 MG TABS 7-26 l 08:02: [place] 43 AMLODIPINE No 1 po qd [place] BESYLATE 10 7-26 l MG TABS 08:02: [place] 43 SIMVASTATIN No 1 po qd Mem [facility] 40 MG TABS 7-26 l 08:02: [place] 43 AMLODIPINE No 1 po qd [place] BESYLATE 10 7-26 l MG TABS 08:02: [place] 43 SIMVASTATIN No 1 po qd Mem [facility] 40 MG TABS 7-26 l 08:02: [place] 43 AMLODIPINE No 1 po qd [place] BESYLATE 10 7-26 l MG TABS 08:02: [place] 43 SIMVASTATIN No 1 po qd Mem [facility] 40 MG TABS 7-26 l 08:02: [place] 43 AMLODIPINE No 1 po qd [place] BESYLATE 10 7-26 l MG TABS 08:02: [place] 43 VITAMIN D 2012-0 Yes per other Mem [facility]ria CAPS 3-16 M.D. l 00:00: DEPAKOTE 0 Yes per other [place] TBEC 3-16 M.D. l 00:00: HYDROXYCHLO 2011-0 Yes 1 tab qd [place] ROQUINE 3-16 l SULFATE 200 00:00: [place] n MG TABS 00 VITAMIN D 0 No per other Mem oria CAPS 3-16 M.D. l 00:00: DEPAKOTE 0 No per other [place] TBEC 3-16 M.D. l 00:00: HYDROXYCHLO 0 No 1 tab qd [place] ROQUINE 3-16 l SULFATE 200 00:00: [place] MG TABS 00 VITAMIN D 0 Yes per other Mem oria CAPS 3-16 M.D. l 00:00: DEPAKOTE 0 Yes per other [place] TBEC 3-16 M.D. l 00:00: HYDROXYCHLO 2011-0 Yes 1 tab qd [place] ROQUINE 3-16 l SULFATE 200 00:00: [place] TABS 00 VITAMIN D 0 No per other Mem oria CAPS 3-16 M.D. l 00:00: DEPAKOTE 0 No per other [place] TBEC 3-16 M.D. l 00:00: HYDROXYCHLO 2011-0 No 1 tab qd [place] ROQUINE 3-16 l SULFATE 200 00:00: [place] MG TABS 00 VITAMIN D 0 Yes per other Mem oria CAPS 3-16 M.D. l 00:00: DEPAKOTE 0 Yes per other [place] TBEC 3-16 M.D. l 00:00: HYDROXYCHLO 2011-0 Yes 1 tab qd [place] ROQUINE 3-16 l SULFATE 200 00:00: [place] MG TABS 00 VITAMIN D 0 No per other Mem oria CAPS 3-16 M.D. l 00:00: DEPAKOTE 0 No per other [place] TBEC 3-16 M.D. l 00:00: HYDROXYCHLO 2011-0 No 1 tab qd [place] ROQUINE 3-16 l SULFATE 200 00:00: [place] MG TABS 00 VITAMIN D 0 Yes per other Mem oria CAPS 3-16 M.D. l 00:00: [place] 00 DEPAKOTE 0 Yes per other [place] TBEC 3-16 M.D. l 00:00: [place] 00 HYDROXYCHLO 0 Yes 1 tab qd [place] ROQUINE 3-16 l SULFATE 200 00:00: [place] MG TABS 00 VITAMIN D 0 No per other Mem oria CAPS 3-16 M.D. l 00:00: [place] 00 DEPAKOTE No per other [place] TBEC 3-16 M.D. l 00:00: [place] 00 HYDROXYCHLO No 1 tab qd [place] ROQUINE 3-16 l SULFATE 200 00:00: [place] TABS 00 VITAMIN D 0 Yes per other Mem oria CAPS 3-16 M.D. l 00:00: DEPAKOTE 0 Yes per other [place] TBEC 3-16 M.D. l 00:00: HYDROXYCHLO 0 Yes 1 tab qd [place] ROQUINE 3-16 l SULFATE 200 00:00: [place] TABS 00 VITAMIN D 0 Yes per other Mem oria CAPS 3-16 M.D. l 00:00: [place] 00 DEPAKOTE 0 Yes per other [place] TBEC 3-16 M.D. l 00:00: HYDROXYCHLO 0 Yes 1 tab qd [place] ROQUINE 3-16 l SULFATE 200 00:00: [place] TABS 00 VITAMIN D 0 No per other Mem oria CAPS 3-16 M.D. l 00:00: VITAMIN D 0 No per other Mem oria CAPS 3-16 M.D. l 00:00: DEPAKOTE 0 No per other [place] TBEC 3-16 M.D. l 00:00: [place] 00 HYDROXYCHLO 0 No 1 tab qd [place] ROQUINE 3-16 l SULFATE 200 00:00: [place] MG TABS 00 DEPAKOTE No per other [place] TBEC 3-16 M.D. l 00:00: HYDROXYCHLO 2011-0 No 1 tab qd [place] ROQUINE 3-16 l SULFATE 200 00:00: [place] TABS 00 VITAMIN D 0 Yes per other Mem [...] TBEC 3-16 M.D. l 00:00: HYDROXYCHLO 0 No 1 tab qd [...] Mem oria TABS 1-11 M.D. l 00:00: GLIPIZIDE 2010-04 Yes per other Mem [facility]ria TABS 1-11 M.D. l 00:00: METFORMIN 2010-04 No 1 po qd Memor ia HCL 500 MG 1-11 l TABS 00:00: METFORMIN 2010-04 No 1 po qd [...] MG 00:00: [place] TABS 00 TRAMADOL-AC 2010- No 1 tab q 12 Memoria ETAMINOPHEN 0-20 hourly PRN l 37.5-325 MG 00:00: [place] TABS TRAMADOL 2010-0 No 1 po qd Memori [...] MG 4-07 PRN l TABS 00:00: TIZANIDINE 2010-0 No 1 tab QHS [place] HCL 4 MG 4-07 PRN l TABS 00:00: TRAMADOL 0 No 1 po qd Memori a HCL 50 MG 4-07 l TABS 00:00: MELOXICAM 0 No 1 tab qd [place] [...] 50 MG 4-07 l TABS 00:00: HYDROXYCHLO 2010-0 No 1 tab qd [place] ROQUINE [...] 50 MG 4-07 l TABS 00:00: MELOXICAM 2010-0 No 1 tab qd [place] 15 MG TABS 4-07 w/ food l 00:00: PRN TIZANIDINE 0 No 1 tab QHS [place] HCL 4 MG 4-07 PRN l TABS 00:00: TRAMADOL 2010-0 No 1 po qd Memori a HCL 50 MG 4-07 l TABS 00:00: TIZANIDINE 0 No 1 tab QHS [place] HCL 4 MG 4-07 PRN l TABS 00:00: HYDROXYCHLO 0 No 1 [...] 50 MG 4-07 l TABS 00:00: MELOXICAM 0 No 1 tab qd [place] 15 MG TABS 4-07 w/ food l 00:00: PRN TIZANIDINE 0 No 1 tab QHS [place] HCL 4 MG 4-07 PRN l TABS 00:00: TRAMADOL 0 No 1 po qd Memori a HCL 50 MG 4-07 l TABS 00:00: TIZANIDINE 0 No 1 tab QHS [place] HCL 4 MG 4-07 PRN l TABS 00:00: HYDROXYCHLO 0 No 1 [...] 4-07 PRN l TABS 00:00: VITAMIN D No 1 tab once [place] [id number] UNIT 3-09 a week for l CAPS 00:00: two weeks VITAMIN D 2010-0 No 1 tab once [place] [id number] UNIT 3- a week for l CAPS 00:00: two weeks VITAMIN D 2009-0 No 1 tab once [place] [id number] UNIT 3- a week for l CAPS 00:00: two weeks VITAMIN D 2009-0 No 1 tab once [place] [id number] UNIT 3-09 a week for l CAPS 00:00: two weeks VITAMIN D 2009-0 No 1 tab once [place] [id number] UNIT 3- a week for l CAPS 00:00: two weeks VITAMIN D No 1 tab once [place] [id number] UNIT 3- a week for l CAPS 00:00: two weeks VITAMIN D No 1 tab once [place] [id number] UNIT 3 a week for l CAPS 00:00: two weeks VITAMIN D 0 No 1 tab once [place] [id number] UNIT 3- a week for l CAPS 00:00: two weeks VITAMIN D 2009-0 No 1 tab once [place] [id number] UNIT 3 a week for l CAPS 00:00: two weeks VITAMIN D 0 No 1 tab once [place] [id number] UNIT 3- a week for l CAPS 00:00: two weeks VITAMIN D 2009-0 No 1 tab once [place] [id number] UNIT 3- a week for l CAPS 00:00: two weeks VITAMIN D 0 No 1 tab once [place] [id number] UNIT 3- a week for l CAPS 00:00: two weeks VITAMIN D 0 No 1 tab once [place] [id number] UNIT 3 a week for l CAPS 00:00: two weeks VITAMIN D No 1 tab once [place] [id number] UNIT 3-09 a week for l CAPS 00:00: two weeks Immunizations Ordered Immunization Filled Immunization Date Status Commen ts Source Name Name [facility] 2020-06-22 Completed [facility] SARS-CoV-2 00:00:00 of Medicine Vaccination [employer] 2020-06-22 Completed [facility] SARS-CoV-2 00:00:00 of Medicine Vaccination [employer] 2020-06-22 Completed [facility] SARS-CoV-2 00:00:00 of Medicine Vaccination Yue J&J 2020-06-22 Completed [facility] SARS-CoV-2 00:00:00 of Medicine Vaccination Influenza Hd 2020-02-22 Completed [facility] 00:00:00 of Medicine Influenza Hd 2020-02-22 Completed [facility] 00:00:00 of Medicine Influenza Hd 2020-02-22 Completed [facility] 00:00:00 of Medicine Influenza Hd 2020-02-22 Completed [facility] 00:00:00 of Medicine Pneumococcal 2019-10-12 Completed [facility] Polysaccharide 00:00:00 of Medicin e Pneumococcal 2019-10-12 Completed [facility] Polysaccharide 00:00:00 of Medicin e Pneumococcal 2019-10-12 Completed [facility] Polysaccharide 00:00:00 of Medicin e Pneumococcal 2019-10-12 Completed [facility] Polysaccharide 00:00:00 of Medicin e Pneumococcal 2019-10-12 Completed [facility] Polysaccharide 00:00:00 of Medicin e Pneumococcal 2019-10-12 Completed [facility] Polysaccharide 00:00:00 of Medicin e Pneumococcal 2019-10-12 Completed [facility] Polysaccharide 00:00:00 of Medicin e Influenza Hd 2019-04-05 Completed [facility] Colle ge 00:00:00 of Medicine Influenza Hd 2019-04-05 Completed [facility] 00:00:00 of Medicine Influenza Hd 2019-04-05 Completed [facility] Colle ge 00:00:00 of Medicine Influenza Hd 2019-04-05 Completed [facility] ge 00:00:00 of Medicine Influenza Hd 2019-04-05 Completed [facility] Colle ge 00:00:00 of Medicine Influenza Hd 2019-04-05 Completed [facility] Colle ge 00:00:00 of Medicine Influenza Hd 2019-04-05 Completed [facility] 00:00:00 of Medicine polio vaccine #4 2011-08-29 Completed [facility] 16:[facility] [place] polio vaccine #4 2011-08-29 Completed [facility] 16:08:45 [place] polio vaccine #4 2011-08-29 Completed [facility] 16:08:45 [place] polio vaccine #4 2011-08-29 Completed [facility] 16:08:45 [place] polio vaccine #4 2011-08-29 Completed [facility] 16:08:45 [place] polio vaccine #4 2011-08-29 Completed [facility] 16:08:45 [place] polio vaccine #4 2011-08-29 Completed [facility] 16:08:45 [place] polio vaccine #4 2011-02-14 Completed [facility] 20:47:19 [place] polio vaccine #4 2011-02-14 Completed [facility] 20:47:19 [place] polio vaccine #4 2011-02-14 Completed [facility] 20:47:19 [place] polio vaccine #4 2011-02-14 Completed [facility] 20:47:19 [place] polio vaccine #4 2011-02-14 Completed [facility] 20:47:19 [place] polio vaccine #4 2011-02-14 Completed [facility] 20:47:19 [place] polio vaccine #4 2011-02-14 Completed [facility] 20:47:19 [place] Vital Signs Vital Name Observation Time Observation Value Comments Source Systolic blood 2021-01-26 20:01:00 158 mm[Hg] Univer sity of pressure [facility] Diastolic blood 2021-01-26 20:01:00 74 mm[Hg] Unive rsity of [facility] Heart rate 2021-01-26 20:00:00 93 /min [facility] Body temperature 2021-01-26 20:00:[address] [facility] rate 2021-01-26 20:00:00 20 /min [facility] Body height 2021-01-26 20:00:00 175.3 cm [facility] Body weight 2021-01-26 20:00:00 101.833 kg [facility] BMI 2021-01-26 20:00:00 33.15 kg/m2 [facility] Oxygen saturation in 2021-01-26 20:00:00 96 /min [facility] Arterial blood by [facility] Pulse oximetry Branch Systolic blood 2020-12-11 07:49:02 161 mm[Hg] Univer sity of pressure [facility] Diastolic blood 2020-12-11 07:49:02 70 mm[Hg] Unive rsity of pressure [facility] Heart rate 2020-12-11 07:49:02 86 /min [facility] Body temperature 2020-12-11 07:49:02 38.17 Annel [facility] Respiratory rate 2020-12-11 07:49:02 19 /min [facility] Oxygen saturation in 2020-12-11 07:49:02 96 /min [facility] Arterial blood by [facility] Pulse oximetry Branch Body height 2020-12-11 06:05:00 176.5 cm [facility] Body weight 2020-12-11 06:05:00 102.967 kg [facility] BMI 2020-12-11 06:05:00 33.04 kg/m2 [facility] Systolic blood 2020-10-26 22:04:00 178 mm[Hg] Univer sity of pressure [facility] Diastolic blood 2020-10-26 22:04:00 90 mm[Hg] Unive rsity of pressure [facility] Heart rate 2020-10-26 21:41:00 78 /min [facility] Respiratory rate 2020-10-26 21:33:00 21 /min [facility] Body height 2020-10-26 21:33:00 175.3 cm [facility] Body weight 2020-10-26 21:33:00 103.602 kg [facility] BMI 2020-10-26 21:33:00 33.73 kg/m2 [facility] Oxygen saturation in 2020-10-26 21:33:00 97 /min [facility] Arterial blood by [facility] Pulse oximetry Branch Systolic blood 2020-10-09 15:12:00 125 mm[Hg] Univer sity of pressure [facility] Diastolic blood 2020-10-09 15:12:00 73 mm[Hg] Unive rsity of pressure [facility] Heart rate 2020-10-09 15:12:00 65 /min [facility] Body height 2020-10-09 15:12:00 175.3 cm [facility] Body weight 2020-10-09 15:12:00 102.967 kg [facility] BMI 2020-10-09 15:12:00 33.52 kg/m2 [facility] Systolic blood 2020-08-01 14:45:00 154 mm[Hg] [facility] Medicine Diastolic blood 2020-08-01 14:45:00 80 mm[Hg] [facility] Medicine Heart rate 2020-08-01 14:45:00 73 /min [facility] Body temperature 2020-08-01 14:45:[address] [facility] Body weight 2020-08-01 14:45:00 102.513 [facility] BMI 2020-08-01 14:45:00 33.37 kg/m2 [facility] Oxygen saturation in 2020-08-01 14:45:00 96 /min [facility] of Arterial blood by Medicine Pulse oximetry Systolic blood 2020-08-01 14:45:00 154 mm[Hg] [facility] Medicine Diastolic blood 2020-08-01 14:45:00 80 mm[Hg] [facility] Medicine Heart rate 2020-08-01 14:45:00 73 /min [facility] Body temperature 2020-08-01 14:45:[address] [facility] Body weight 2020-08-01 14:45:00 102.513 kg [facility] BMI 2020-08-01 14:45:00 33.37 kg/m2 [facility] Oxygen saturation in 2020-08-01 14:45:00 96 /min [facility] of Arterial blood by Medicine Pulse oximetry Systolic blood 2020-07-02 13:56:00 150 mm[Hg] [facility] pressure Medicine Diastolic blood 2020-07-02 13:56:00 80 mm[Hg] [facility] Medicine Heart rate 2020-07-02 13:56:00 75 /min [facility] Respiratory rate 2020-07-02 13:56:00 16 /min [facility] Body height 2020-07-02 13:56:00 175.3 cm [facility] Body weight 2020-07-02 13:56:00 103.874 kg [facility] BMI 2020-07-02 13:56:00 33.82 kg/m2 [facility] Systolic blood 2020-07-02 13:56:00 150 mm[Hg] [facility] Medicine Diastolic blood 2020-07-02 13:56:00 80 mm[Hg] [facility] Medicine Heart rate 2020-07-02 13:56:00 75 /min [facility] C [facility]lege of Medicine Respiratory rate 2020-07-02 13:56:00 16 /min [facility] Body height 2020-07-02 13:56:00 175.3 cm [facility] C [facility]lege of Medicine Body weight 2020-07-02 13:56:00 103.874 kg [facility] of Medicine BMI 2020-07-02 13:56:00 33.82 kg/m2 [facility] C [facility] of Medicine Body height 2020-06-28 14:59:00 175.3 cm [facility] C [facility] of Medicine Body weight 2020-06-28 14:59:00 104.327 kg [facility] C [facility] of Medicine BMI 2020-06-28 14:59:00 33.97 kg/m2 [facility] C [facility] of Medicine Body height 2020-06-28 14:59:00 175.3 cm [facility] C [facility] of Medicine Body weight 2020-06-28 14:59:00 104.327 kg [facility] C [facility] of Medicine BMI 2020-06-28 14:59:00 33.97 kg/m2 [facility] C [facility]lege of Medicine Systolic blood 2020-04-16 16:05:00 143 mm[Hg] [facility] Medicine Diastolic blood 2020-04-16 16:05:00 80 mm[Hg] [facility] Medicine Heart rate 2020-04-16 16:05:00 72 /min [facility] C [facility]lege of Medicine Body temperature 2020-04-16 16:05:[address] [facility] Respiratory rate 2020-04-16 16:05:00 16 /min [facility] Body height 2020-04-16 16:05:00 175.3 cm [facility] C [facility]lege of Medicine Body weight 2020-04-16 16:05:00 106.595 kg [facility] C [facility]lege of Medicine BMI 2020-04-16 16:05:00 34.70 kg/m2 [facility] ollege of [facility] Systolic blood 2020-04-16 16:05:00 143 mm[Hg] [facility] pressure Medicine Diastolic blood 2020-04-16 16:05:00 80 mm[Hg] [facility] pressure Medicine Heart rate 2020-04-16 16:05:00 72 /min [facility] ollege of [facility] Body temperature 2020-04-16 16:05:[address] [facility] Respiratory rate 2020-04-16 16:05:00 16 /min [facility] Body height 2020-04-16 16:05:00 175.3 cm [facility] ollege of [facility] Body weight 2020-04-16 16:05:00 106.595 kg [facility] ol[facility] of [facility] BMI 2020-04-16 16:05:00 34.70 kg/m2 [facility] ollege of [facility] Systolic blood 2020-02-20 16:43:00 156 mm[Hg] [facility] pressure Medicine Diastolic blood 2020-02-20 16:43:00 83 mm[Hg] [facility] pressure Medicine Heart rate 2020-02-20 16:43:00 74 /min [facility] ollege of [facility] Body temperature 2020-02-20 16:43:[address] [facility] Respiratory rate 2020-02-20 16:43:00 16 /min [facility] Body height 2020-02-20 16:43:00 175.3 cm [facility] ollege of [facility] Body weight 2020-02-20 16:43:00 113.218 kg [facility] ollege of [facility] BMI 2020-02-20 16:43:00 36.86 kg/m2 [facility] Systolic blood 2020-02-20 16:43:00 156 mm[Hg] [facility] of pressure Medicine Diastolic blood 2020-02-20 16:43:00 83 mm[Hg] [facility] pressure Medicine Heart rate 2020-02-20 16:43:00 74 /min [facility] ollege of Medicine Body temperature 2020-02-20 16:43:[address] [facility] Respiratory rate 2020-02-20 16:43:00 16 /min [facility] Body height 2020-02-20 16:43:00 175.3 cm [facility] ollege of [facility] Body weight 2020-02-20 16:43:00 113.218 kg [facility] ollege of Medicine BMI 2020-02-20 16:43:00 36.86 kg/m2 [facility] ollege of Medicine Systolic blood 2020-02-20 15:41:00 137 mm[Hg] [facility] of pressure Medicine Diastolic blood 2020-02-20 15:41:00 79 mm[Hg] [facility] Medicine Heart rate 2020-02-20 15:41:00 72 /min [facility] ollege of [facility] Body temperature 2020-02-20 15:41:[address] [facility] Respiratory rate 2020-02-20 15:41:00 16 /min [facility] Body height 2020-02-20 15:41:00 175.3 cm [facility] ol[facility] of [facility] Body weight 2020-02-20 15:41:00 113.399 kg [facility] ol[facility] of Medicine BMI 2020-02-20 15:41:00 36.92 kg/m2 [facility] Oxygen saturation in 2020-02-20 15:41:00 99 /min [facility] blood by [facility] Pulse oximetry Systolic blood 2020-02-20 15:41:00 137 mm[Hg] [facility] pressure Medicine Diastolic blood 2020-02-20 15:41:00 79 mm[Hg] [facility] pressure Medicine Heart rate 2020-02-20 15:41:00 72 /min [facility] ollege of Medicine Body temperature 2020-02-20 15:41:[address] [facility] Respiratory rate 2020-02-20 15:41:00 16 /min [facility] Body height 2020-02-20 15:41:00 175.3 cm [facility] ollege of Medicine Body weight 2020-02-20 15:41:00 113.399 kg [facility] ol[facility] of Medicine BMI 2020-02-20 15:41:00 36.92 kg/m2 [facility] ollege of Medicine Oxygen saturation in 2020-02-20 15:41:00 99 /min [facility] of Arterial blood by Medicine Pulse oximetry BMI 2020-01-09 13:47:00 34.88 kg/m2 [facility] ollege of [facility] Oxygen saturation in 2020-01-09 13:47:00 99 /min [facility] of Arterial blood by Medicine Pulse oximetry Systolic blood 2020-01-09 13:47:00 145 mm[Hg] [facility] of pressure Medicine Diastolic blood 2020-01-09 13:47:00 80 mm[Hg] [facility] of pressure Medicine Heart rate 2020-01-09 13:47:00 69 /min [facility] ollege of Medicine Body temperature 2020-01-09 13:47:[address] [facility] Respiratory rate 2020-01-09 13:47:00 17 /min [facility] Body height 2020-01-09 13:47:00 175.3 cm [facility] ollege of [facility] Body weight 2020-01-09 13:47:00 107.14 [facility] BMI 2020-01-09 13:47:00 34.88 kg/m2 [facility] Oxygen saturation in 2020-01-09 13:47:00 99 /min [facility] of Arterial blood by Medicine Pulse oximetry Systolic blood 2020-01-09 13:47:00 145 mm[Hg] [facility] of pressure Medicine Diastolic blood 2020-01-09 13:47:00 80 mm[Hg] [facility] of pressure Medicine Heart rate 2020-01-09 13:47:00 69 /min [facility] ollege of Medicine Body temperature 2020-01-09 13:47:[address] [facility] Respiratory rate 2020-01-09 13:47:00 17 /min [facility] Body height 2020-01-09 13:47:00 175.3 cm [facility] ollege of Medicine Body weight 2020-01-09 13:47:00 107.14 [facility] Systolic blood 2019-12-19 13:59:00 130 mm[Hg] [facility] of pressure Medicine Diastolic blood 2019-12-19 13:59:00 73 mm[Hg] [facility] of pressure Medicine Heart rate 2019-12-19 13:59:00 71 /min [facility] ollege [facility] Body temperature 2019-12-19 13:59:[address] [facility] Respiratory rate 2019-12-19 13:59:00 16 /min [facility] Body height 2019-12-19 13:59:00 175.3 cm [facility] Body weight 2019-12-19 13:59:00 108.5 kg [facility] BMI 2019-12-19 13:59:00 35.32 kg/m2 [facility] Systolic blood 2019-12-19 13:59:00 130 mm[Hg] [facility] pressure Medicine Diastolic blood 2019-12-19 13:59:00 73 mm[Hg] [facility] Medicine Heart rate 2019-12-19 13:59:00 71 /min [facility] Body temperature 2019-12-19 13:59:[address] [facility] Respiratory rate 2019-12-19 13:59:00 16 /min [facility] Body height 2019-12-19 13:59:00 175.3 cm [facility] Body weight 2019-12-19 13:59:00 108.5 kg [facility] BMI 2019-12-19 13:59:00 35.32 kg/m2 [facility] Height 2013-04-19 16:42:10 [facility] [place] Systolic (mm Hg) 2013-04-19 16:42:10 Devonte rial [place] Diastolic (mm Hg) 2013-04-19 16:42:10 Mem orial [place] Heart Rate 2013-04-19 16:42:10 [facility] [place] Systolic (mm Hg) 2011-01-16 16:53:41 Devonte rial [place] Diastolic (mm Hg) 2011-01-16 16:53:41 Mem orial [place] Heart Rate 2011-01-16 16:53:41 [facility] [place] Systolic (mm Hg) 2010-07-11 13:20:54 Devonte rial [place] Diastolic (mm Hg) 2010-07-11 13:20:54 Mem orial [place] Heart Rate 2010-07-11 13:20:54 [facility] [place] Diastolic (mm Hg) 2009-11-28 13:10:48 Mem orial [place] Heart Rate 2009-11-28 13:10:48 [facility] [place] Weight 2009-11-28 13:10:48 [facility] [place] Systolic (mm Hg) 2009-11-28 13:10:48 Devonte rial [place] Height 2009-06-07 16:58:43 [facility] Weight 2009-06-07 16:58:43 [facility] Systolic (mm Hg) 2009-06-07 16:58:43 Devonte rial [place] Diastolic (mm Hg) 2009-06-07 16:58:43 Mem orial [place] Heart Rate 2009-06-07 16:58:43 [facility] [place] Procedures Procedure Date / Time Performing Clinician Source Performed TROPONIN I 2020-12-11 06:37:00 Devi Fuentes [facility] COMP. METABOLIC PANEL 2020-12-11 06:37:00 Devi Fuentes [facility] ([id number]) [facility] CBC WITH DIFF 2020-12-11 06:37:00 Devi Fuentes [facility] COVID-19 (ID NOW RAPID 2020-12-11 06:35:00 Devi Fuentes [facility] TESTING) [facility] POCT HEMOGLOBIN A1C TEST 2020-10-26 21:52:00 Tian Lu [facility] CONSENT/REFUSAL FOR 2020-10-09 14:49:17 Doctor Unassigned, No [facility] DIAGNOSIS AND TREATMENT Name [facility] REFERRAL- 2020-09-25 05:01:00 Doctor Unassigned, No [facility] REQUEST/RESPONSE Name [facility] genitourinary review of 2009-06-07 16:58:43 Devonte Gottlie[facility] systems, E&M Plan of Care Planned Activity Planned Date Details Comments Source Diagnostic Test 2020-11-01 VITAMIN D 25 HYDROXY Expected: [facility] Pending 00:00:00 [code = 1989-3] 11/01/2020 of Medicine (Approximate), Expires: 01/02/2021 Diagnostic Test 2020-11-01 BASIC METABOLIC PANEL Expected: [facility] Pending 00:00:00 [code = 34522-5] 11/01/2020 of Medicine (Approximate), Expires: 01/02/2021 Diagnostic Test 2020-11-01 MAGNESIUM [code = Expected: [facility] Pending 00:00:00 79256-1] 11/01/2020 of Medicine (Approximate), Expires: 01/02/2021 Diagnostic Test 2020-11-01 PHOSPHORUS [code = Expected: [facility] Pending 00:00:00 2777-1] 11/01/2020 of Medicine (Approximate), Expires: 01/02/2021 Diagnostic Test 2020-11-01 PTH INTACT [code = Expected: [facility] Pending 00:00:00 2731-8] 11/01/2020 of Medicine (Approximate), Expires: 01/02/2021 Diagnostic Test 2020-11-01 RANDOM URINE Expected: [facility] Pending 00:00:00 PROTEIN/CREATININE 11/01/2020 of Medici ne [code = 2890-2] (Approximate), Expires: 01/02/2021 Diagnostic Test 2020-11-01 URINALYSIS AUTO Expected: [facility] Pending 00:00:00 W/SCOPE [code = 11/01/2020 of Medicine 48259-8] (Approximate), Expires: 01/02/2021 Diagnostic Test 2020-08-15 CBC W/AUTO DIFF WITH Expected: [facility] Pending 00:00:00 PLATELETS [code = 08/15/2020, of Medicin e 67072-4] Expires: 01/31/2021 Diagnostic Test 2020-08-08 MAGNESIUM [code = Expected: [facility] Pending 00:00:00 85436-0] 08/08/2020, of Medicine Expires: 01/31/2021 Future Scheduled SHINE W REFLEX TITER Ordered: [facility] Test [code = NOCPT] 12/19/2019 of Medicine Future Scheduled PROTEIN Ordered: [facility] ege Test ELECTROPHORESIS SERUM 12/19/2019 of Med icine [code = 26851-9] Future Scheduled COLON CANCER [facility] Test SCREENING: COLONOSCOPY of Me dicine [code = COLON CANCER SCREENING: COLONOSCOPY] Future Scheduled MAMMOGRAM ANNUAL [code [facility] Test = MAMMOGRAM ANNUAL] of Medic ine Future Scheduled TETANUS SHOT (ADULT) [employer] Test [code = TETANUS SHOT of Medi cine (ADULT)] Future Scheduled BMI FOLLOW UP PLAN [employer] Test [code = BMI FOLLOW UP of Med icine PLAN] Future Scheduled HEPATITIS C SCREENING [employer] Test [code = HEPATITIS C of Medic ine SCREENING] Future Scheduled ZOSTER VACCINE (1 of [employer] Test 2) [code = ZOSTER of Medicin e VACCINE (1 of 2)] Future Scheduled MEDICARE AWV (Initial) [employer] Test [code = MEDICARE AWV of Medi cine (Initial)] Future Scheduled FALL SCREEN [code = [employer] Test FALL SCREEN] of Medicine Future Scheduled OSTEOPOROSIS SCREENING [employer] Test [code = OSTEOPOROSIS of Medi cine SCREENING] Future Scheduled PNEUMOVAX >=65 [facility] Test (PPSV23) [code = of Medicine PNEUMOVAX >=65 (PPSV23)] Future Scheduled FLU VACCINE > 6 MONTHS [employer] Test [code = FLU VACCINE > of Med icine 6 MONTHS] Future Scheduled COLON CANCER [facility] [employer] [employer] Test SCREENING: COLONOSCOPY of Me [place] [code = COLON CANCER SCREENING: COLONOSCOPY] Future Scheduled TETANUS SHOT (ADULT) [employer] Test [code = TETANUS SHOT of Medi cine (ADULT)] Future Scheduled BMI FOLLOW UP PLAN [employer] Test [code = BMI FOLLOW UP of Med icine PLAN] Future Scheduled HEPATITIS C SCREENING [employer] Test [code = HEPATITIS C of Medic ine SCREENING] Future Scheduled ZOSTER VACCINE (1 of [employer] Test 2) [code = ZOSTER of Medicin e VACCINE (1 of 2)] Future Scheduled MEDICARE AWV (Initial) [employer] Test [code = MEDICARE AWV of Medi cine (Initial)] Future Scheduled FALL SCREEN [code = [employer] Test FALL SCREEN] of Medicine Future Scheduled OSTEOPOROSIS SCREENING [employer] Test [code = OSTEOPOROSIS of Medi cine SCREENING] Future Scheduled PNEUMOVAX >=65 [facility] Test (PPSV23) [code = of Medicine PNEUMOVAX >=65 (PPSV23)] Future Scheduled FLU VACCINE > 6 MONTHS [employer] Test [code = FLU VACCINE > of Med icine 6 MONTHS] Future Scheduled MAMMOGRAM ANNUAL [code [employer] Test = MAMMOGRAM ANNUAL] of Medic ine Future Scheduled RHEUMATOID FACTOR Ordered: [facility] Test [code = 55892-3] 02/20/2020 of Medicine Future Scheduled CCP AB (IGG/IGA) [code Ordered: [facility] Test = 83536-6] 02/20/2020 of Medicine Future Scheduled URIC ACID [code = Ordered: [facility] Test 3084-1] 02/20/2020 of Medicine Future Scheduled C-REACTIVE PROTEIN Ordered: [employer] Test [code = 1988-5] 02/20/2020 of Medicine Future Scheduled SEDIMENTATION RATE Ordered: [employer] Test MODIFIED WESTERGREN 02/20/2020 of Medic ine [code = 4537-7] Future Scheduled COLON CANCER [facility] [employer] Test SCREENING: COLONOSCOPY of Me dicine [code = COLON CANCER SCREENING: COLONOSCOPY] Future Scheduled TETANUS SHOT (ADULT) [employer] Test [code = TETANUS SHOT of Medi cine (ADULT)] Future Scheduled HEPATITIS C SCREENING [employer] Test [code = HEPATITIS C of Medic ine SCREENING] Future Scheduled ZOSTER VACCINE (1 of [employer] Test 2) [code = ZOSTER of Medicin e VACCINE (1 of 2)] Future Scheduled MEDICARE AWV (Initial) [employer] Test [code = MEDICARE AWV of Medi cine (Initial)] Future Scheduled OSTEOPOROSIS SCREENING [employer] Test [code = OSTEOPOROSIS of Medi cine SCREENING] Future Scheduled FLU VACCINE > 6 MONTHS [employer] Test [code = FLU VACCINE > of Med icine 6 MONTHS] Future Scheduled MAMMOGRAM ANNUAL [code [facility] [employer] Test = MAMMOGRAM ANNUAL] of Medic ine Future Scheduled BMI FOLLOW UP PLAN [facility] Test [code = BMI FOLLOW UP of Med icine PLAN] Future Scheduled FALL SCREEN [code = [facility] [employer] Test FALL SCREEN] of Medicine Future Scheduled BASIC METABOLIC PANEL Ordered: [employer] Test [code = 00859-7] 02/20/2020 of Medicine Future Scheduled MAGNESIUM [code = Ordered: [facility] Test 32991-7] 02/20/2020 of Medicine Future Scheduled PHOSPHORUS [code = Ordered: [facility] Test 2777-1] 02/20/2020 of Medicine Future Scheduled URINALYSIS AUTO Ordered: [facility] Test W/SCOPE [code = 02/20/2020 of Medicine 92003-4] Future Scheduled RANDOM URINE Ordered: [facility] [employer] Test PROTEIN/CREATININE 02/20/2020 of Medici ne [code = 2890-2] Future Scheduled PTH INTACT [code = Ordered: [employer] Test 2731-8] 02/20/2020 of Medicine Future Scheduled COLON CANCER [facility] [employer] [employer] Test SCREENING: COLONOSCOPY of Me dicine [code = COLON CANCER SCREENING: COLONOSCOPY] Future Scheduled TETANUS SHOT (ADULT) [employer] Test [code = TETANUS SHOT of Medi cine (ADULT)] Future Scheduled HEPATITIS C SCREENING [employer] Test [code = HEPATITIS C of Medic ine SCREENING] Future Scheduled ZOSTER VACCINE (1 of [employer] 2) [code = ZOSTER of Medicin e VACCINE (1 of 2)] Future Scheduled MEDICARE AWV (Initial) [facility] [code = MEDICARE AWV of Medi cine (Initial)] Future Scheduled OSTEOPOROSIS SCREENING [employer] [code = OSTEOPOROSIS of Medi cine SCREENING] Future Scheduled FLU VACCINE > 6 MONTHS [facility] [code = FLU VACCINE > of Med icine 6 MONTHS] Future Scheduled MAMMOGRAM ANNUAL [code [facility] Test = MAMMOGRAM ANNUAL] of Medic ine Future Scheduled BMI FOLLOW UP PLAN [facility] [place] Test [code = BMI FOLLOW UP of Med icine PLAN] Future Scheduled FALL SCREEN [code = [facility] Test FALL SCREEN] of Medicine Future Scheduled BASIC METABOLIC PANEL Ordered: [facility] Test [code = 56529-9] 04/16/2020 of Medicine Future Scheduled CALCIUM IONIZED [code Ordered: [facility] Test = 12045-1] 04/16/2020 of Medicine Future Scheduled PHOSPHORUS [code = Ordered: [facility] Test 2777-1] 04/16/2020 of Medicine Future Scheduled MAGNESIUM [code = Ordered: [facility] Test 98160-2] 04/16/2020 of Medicine Future Scheduled URINALYSIS AUTO Ordered: [facility] Test W/SCOPE [code = 04/16/2020 of Medicine 44390-0] Future Scheduled RANDOM URINE Ordered: [facility] [employer] Test PROTEIN/CREATININE 04/16/2020 of Medici ne [code = 2890-2] Future Scheduled PTH INTACT [code = Ordered: [facility] Test 2731-8] 04/16/2020 of Medicine Future Scheduled COLON CANCER [facility] [employer] Test SCREENING: COLONOSCOPY of Me dicine [code = COLON CANCER SCREENING: COLONOSCOPY] Future Scheduled COVID-19 Vaccine [facility] Test Evaluation [code = of Medici ne COVID-19 Vaccine Evaluation] Future Scheduled TETANUS SHOT (ADULT) [employer] [code = TETANUS SHOT of Medi cine (ADULT)] Future Scheduled ZOSTER VACCINE (1 of [employer] 2) [code = ZOSTER of Medicin e VACCINE (1 of 2)] Future Scheduled MEDICARE AWV (Initial) [employer] [code = MEDICARE AWV of Medi cine (Initial)] Future Scheduled OSTEOPOROSIS SCREENING [employer] [code = OSTEOPOROSIS of Medi cine SCREENING] Future Scheduled FLU VACCINE > 6 MONTHS [employer] [facility] [code = FLU VACCINE > of Med icine 6 MONTHS] Future Scheduled MAMMOGRAM ANNUAL [code [employer] Test = MAMMOGRAM ANNUAL] of Medic ine Future Scheduled BMI FOLLOW UP PLAN [employer] [facility] [code = BMI FOLLOW UP of Med icine PLAN] Future Scheduled FALL SCREEN [code = [employer] FALL SCREEN] of Medicine Future Scheduled ORT - XR FOOT BILAT 3V Ordered: [employer] [facility] (CHARGE ONLY) [code = 06/28/2020 of Med icine 13951] Future Scheduled Screening for [facility] Test malignant neoplasm of of Med icine colon (procedure) [code = 121340743] Future Scheduled TETANUS SHOT (ADULT) [employer] [code = TETANUS SHOT of Medi cine (ADULT)] Future Scheduled ZOSTER VACCINE (1 of [employer] Test 2) [code = ZOSTER of Medicin e VACCINE (1 of 2)] Future Scheduled MEDICARE AWV (Initial) [employer] [facility] [code = MEDICARE AWV of Medi cine (Initial)] Future Scheduled Screening for [facility] [employer] [facility] osteoporosis of Medicine (procedure) [code = 529227576] Future Scheduled Screening for [employer] Test malignant neoplasm of of Med icine breast (procedure) [code = 169694414] Future Scheduled BMI FOLLOW UP PLAN [employer] Test [code = BMI FOLLOW UP of Med icine PLAN] Future Scheduled FALL SCREEN [code = [employer] FALL SCREEN] of Medicine Future Scheduled Hemoglobin A1c [facility] [employer] Test measurement of Medicine (procedure) [code = 38677689] Future Scheduled Screening for [facility] Test malignant neoplasm of of Med icine colon (procedure) [code = 438864877] Future Scheduled TETANUS SHOT (ADULT) [employer] Test [code = TETANUS SHOT of Medi cine (ADULT)] Future Scheduled ANNUAL DIABETIC [facility] C [facility] Test RETINOPATHY SCREENING of Med icine [code = ANNUAL DIABETIC RETINOPATHY SCREENING] Future Scheduled ZOSTER VACCINE (1 of [employer] Test 2) [code = ZOSTER of Medicin e VACCINE (1 of 2)] Future Scheduled MEDICARE AWV (Initial) [employer] [code = MEDICARE AWV of [facility] (Initial)] Future Scheduled Screening for [employer] [facility] osteoporosis of Medicine (procedure) [code = 238105211] Future Scheduled Screening for [employer] Test malignant neoplasm of of Med icine breast (procedure) [code = 315045499] Future Scheduled BMI FOLLOW UP PLAN [employer] Test [code = BMI FOLLOW UP of Med icine PLAN] Future Scheduled Diabetic foot [employer] [facility] examination of Medicine (regime/therapy) [code = 837418852] Future Scheduled FALL SCREEN [code = [employer] FALL SCREEN] of Medicine Future Scheduled Hemoglobin A1c [facility] Test measurement of Medicine (procedure) [code = 09185380] Future Scheduled Screening for [employer] Test malignant neoplasm of of Med icine colon (procedure) [code = 023135721] Future Scheduled TETANUS SHOT (ADULT) [employer] Test [code = TETANUS SHOT of [employer] (ADULT)] Future Scheduled ANNUAL DIABETIC [facility] Test RETINOPATHY SCREENING of Med icine [code = ANNUAL DIABETIC RETINOPATHY SCREENING] Future Scheduled ZOSTER VACCINE (1 of [employer] Test 2) [code = ZOSTER of Medicin e VACCINE (1 of 2)] Future Scheduled MEDICARE AWV (Initial) [employer] [code = MEDICARE AWV of [facility] (Initial)] Future Scheduled Screening for [employer] [facility] osteoporosis of Medicine (procedure) [code = 139549867] Future Scheduled Screening for [employer] Test malignant neoplasm of of Med icine breast (procedure) [code = 986870860] Future Scheduled FLU VACCINE > 6 MONTHS [employer] Test [code = FLU VACCINE > of Med icine 6 MONTHS] Future Scheduled BMI FOLLOW UP PLAN [employer] Test [code = BMI FOLLOW UP of Med icine PLAN] Future Scheduled Diabetic foot [employer] examination of Medicine (regime/therapy) [code = 079709333] Future Scheduled FALL SCREEN [code = [employer] FALL SCREEN] of Medicine Future Scheduled HANDICAPPED PLACARD Ordered: [employer] Test [code = NOCPT] 08/01/2020 of Medicine Future Scheduled Hemoglobin A1c [facility] [employer] Test measurement of Medicine (procedure) [code = 55298116] Future Scheduled Screening for [facility] Test malignant neoplasm of of Med icine colon (procedure) [code = 319618624] Future Scheduled TETANUS SHOT (ADULT) [employer] Test [code = TETANUS SHOT of Medi cine (ADULT)] Future Scheduled ANNUAL DIABETIC [facility] Test RETINOPATHY SCREENING of Med icine [code = ANNUAL DIABETIC RETINOPATHY SCREENING] Future Scheduled ZOSTER VACCINE (1 of [employer] Test 2) [code = ZOSTER of Medicin e VACCINE (1 of 2)] Future Scheduled MEDICARE AWV (Initial) [employer] [code = MEDICARE AWV of Medi cine (Initial)] Future Scheduled Screening for [facility] Test osteoporosis of Medicine (procedure) [code = 268918702] Future Scheduled Screening for [facility] [employer] Test malignant neoplasm of of Med icine breast (procedure) [code = 525156364] Future Scheduled FLU VACCINE > 6 MONTHS [employer] Test [code = FLU VACCINE > of Med icine 6 MONTHS] Future Scheduled BMI FOLLOW UP PLAN [facility] Test [code = BMI FOLLOW UP of Med icine PLAN] Future Scheduled Diabetic foot [facility] Test examination of Medicine (regime/therapy) [code = 736206203] Future Scheduled FALL SCREEN [code = [facility] [employer] Test FALL SCREEN] of Medicine Future Scheduled BASIC METABOLIC PANEL [facility] Test [code = 82742-2] 12/19/2019 of Medicine Future Scheduled MAGNESIUM [code = Ordered: [facility] Test 84590-3] 12/19/2019 of Medicine Future Scheduled PHOSPHORUS [code = Ordered: [facility] Test 2777-1] 12/19/2019 of Medicine Future Scheduled URINALYSIS AUTO Ordered: [facility] Test W/SCOPE [code = 12/19/2019 of Medicine 67747-1] Future Scheduled RANDOM URINE Ordered: [facility] [employer] Test PROTEIN/CREATININE 12/19/2019 of Medici ne [code = 2890-2] Future Scheduled PTH INTACT [code = Ordered: [facility] [employer] Test 2731-8] 12/19/2019 of Medicine Future Scheduled CBC W/AUTO DIFF WITH Ordered: [facility] Test PLATELETS [code = 12/19/2019 of Medicin e 19090-2] Future Scheduled IRON+TIBC+%SAT [code = Ordered: [facility] Test NOCPT] 12/19/2019 of Medicine Future Scheduled FERRITIN [code = Ordered: [facility] Test 17663-9] 12/19/2019 of Medicine Future Scheduled ANGIOTENSIN CONVERTING Ordered: [facility] Test ENZYME [code = 2742-5] 12/19/2019 of Me dicine Future Scheduled CALCIUM IONIZED [code Ordered: [facility] Test = 41659-6] 12/19/2019 of Medicine Future Scheduled URINE Ordered: [facility] ege Test CALCIUM/CREATININE 12/19/2019 of Medici ne RATIO [code = NOCPT] Future Scheduled SODIUM, RANDOM URINE Ordered: [facility] Test [code = 20384] 12/19/2019 of Medicine Future Scheduled POTASSIUM,RANDOM URINE Ordered: [facility] Test [code = 45396] 12/19/2019 of Medicine Future Scheduled PRIOR AUTH FOR 1 Occurrences [facility] Test DIABETIC SHOES (A5500) starting of Me dicine [code = A5500] 06/28/2020 until 06/28/2021 Future Scheduled PRIOR AUTH FOR 1 Occurrences [facility] Test DIABETIC INSERTS starting of Medicine (A5512) [code = A5512] 06/28/2020 until 06/28/2021 Future Scheduled US RENAL BILATERAL 1 Occurrences [facility] [employer] Test [code = 94634] starting of Medicine 12/19/2019 until 12/18/2020 Future Scheduled XR KNEE BILATERAL, 1 Occurrences [employer] Test WEIGHT BEARING [code = starting of Me dicine 94214-1] 02/20/2020 until 09/19/2020 Encounters Start End Encounter Admission Attending Care Care Encounter Source Date/Time Date/Time Type Type Clinicians Facility Department ID 2021-02-04 Emergency [facility] [id number] Univers 20:42:03 [facility] 2021-05-10 2021-05-10 Outpatient George LU [facility] [id number] Univers 10:30:00 10:30:00 TIAN [id number] [facility] 2021-05-10 2021-05-10 Outpatient George LU [facility] [id number] Univers 10:30:00 10:30:00 TIAN [facility] 2021-01-26 2021-01-26 Outpatient R [facility] [id number] -[id number] Univers 15:20:00 15:20:00 [id number] ity [facility] 2021-01-26 2021-01-26 Outpatient R EVANGELISTA [facility] [id number] Univers 15:20:00 15:20:00 SELENE ity [facility] 2021-01-26 2021-01-26 Urgent Navin Valera [facility] 1.2.840.114 [id number] Univers 14:55:35 15:15:35 Care Evangelista Selene [facility] 350.1.13.10 ity of [place] 4.2.7.2.686 Fausto as Migue?Blea [phone] [address] Medical Office Building 2021-01-09 2021-01-09 Outpatient RAUL SOLIMAN [facility] [id number] [facility] 08:43:15 09:03:11 ALBIN alva of Medicin e 2021-01-03 2021-01-03 Letter MAULIK Hamilton 1.2.840.114 [id number] Univers 00:00:00 00:00:00 (Out) Pamela SAHU 350.1.13.10 it y of [facility] 4.2.7.2.686 Fausto as [phone] [address] 2021-01-02 2021-01-02 Laboratory Only, Ang Db Test [facility] 1.2.8 40.114 [id number] Univers 09:03:03 09:18:03 Only Kayy Marx [facility] 350.1.13.10 ity of [place] 4.2.7.2.686 Fausto as Migue?Blea [phone] [address] Medical Office Building 2021-01-02 2021-01-02 Outpatient R [facility] [id number] Univers 09:15:00 09:15:00 ity [facility] 2021-01-02 2021-01-02 Outpatient R [facility] [id number] Univers 08:45:00 08:45:00 [id number] ity [facility] 2020-12-25 2020-12-25 Outpatient RAUL SOLIMAN [facility] [id number] [facility] 15:37:31 15:53:52 ALBIN alva of Medicin e 2020-12-13 2020-12-13 Outpatient [facility] [id number] Univers 16:00:00 16:00:00 [id number] ity [facility] 2020-12-13 2020-12-13 [id number] Univers 16:00:00 16:00:00 BOBBY ity [facility] 2020-12-11 2020-12-11 [facility] 1.2.840.114 [id number] Univers 01:00:00 03:03:00 Devi Freeman 350.1.13.10 ity [facility] 4.2.7.2.686 [place] [facility] [phone] [place] [id number] [place] 2020-12-11 2020-12-11 Letter MAULIK Hamilton 1.2.840.114 [id number] Univers 00:00:00 00:00:00 (Out) Pamela SAHU 350.1.13.10 it y of [facility] 4.2.7.2.686 Fausto as [phone] [facility] 019 [place] 2020-12-08 2020-12-08 Outpatient R [facility] [id number] Univers 13:25:00 13:25:00 [id number] ity of [facility] 2020-12-08 2020-12-08 Outpatient R [facility] [id number] Univers 13:25:00 13:25:00 ity of [facility] 2020-12-08 2020-12-08 Laboratory Only, Ang Db Test [facility] 1.2.8 40.114 [id number] Univers 12:59:14 13:09:14 Only [facility] 350.1.13.10 ity [facility] 4.2.7.2.686 Fausto as Migue?Blea [phone] [address] Medical Office [facility] 2020-10-26 2020-10-29 Office Brynn [facility] 1.2.706.834 [id number] Univers 15:49:45 13:53:39 Visit Tian Freeman 350.1.13.10 i [place] of [place] 4.2.7.2.[place] [phone] Ut dical nal 220 [facility] 2020-10-26 2020-10-26 Outpatient George BRYNN [facility] [id number] Univers 16:00:00 16:00:00 TIAN [id number] ity [facility] 2020-10-26 2020-10-26 Outpatient George LU [facility] [id number] Univers 16:00:00 16:00:00 TIAN [facility] 2020-10-10 2020-10-10 Telephone Van [facility] 1.2.840.114 [id number] Univers 00:00:00 00:00:00 Chris Freeman 350.1.13.10 ity of [place] 4.2.7.2.[place] [phone] Ut dical nal 092 [facility] 2020-10-09 2020-10-09 Cash Accounting Clerk 2, Adc Lab [facility] 1.2.840.114 [id number] Univers 11:02:42 11:17:42 Visit Chris Araujo 350.1.13 .10 ity of [place] 4.2.7.2.[place] [phone] Ut dical nal 353 [facility] 2020-10-09 2020-10-09 Office Van [facility] 1.2.840.114 [id number] Univers 09:50:22 11:01:13 Visit Chris Freeman 350.1.13.10 ity of [place] 4.2.7.2.[place] [phone] Ut dical nal 092 [facility] 2020-10-09 2020-10-09 Outpatient CHRIS GARCIA [facility] [id number] Univers 10:00:00 10:00:00 [facility] [id number] [facility] 2020-10-09 2020-10-09 Outpatient CHRIS GARCIA [facility] [id number] Univers 10:00:00 10:00:00 CHRIS ARAUJO itallegra of [facility] 2020-10-09 2020-10-09 Orders Doctor MAULIK 1.2.840.114 [id number] Univers 00:00:00 00:00:00 Only Unassigned, ADELINA 350.1.13.10 ity of [facility] 4.2.7.2.686 Fausto as [phone] [facility] [address] 2020-09-25 2020-09-25 Orders Doctor MAULIK 1.2.840.114 [id number] Univers 00:00:00 00:00:00 Only Unassigned, ADELINA 350.1.13.10 ity of [place] [facility] 4.2.7.2.686 Fausto as [phone] [facility] 009 Branch 2020-08-01 2020-08-01 Office RAUL Enriquez 1.2.840.114 [id number] 09:09:11 12:28:15 Visit Kayleen AMBULATOR 350.1.13.21 Javier Y 0.2.7.2.686 [id number] 2020-08-01 2020-08-01 Office RAUL Enriquez 1.2.840.114 [id number] [facility] 09:09:11 12:28:15 Visit Kayleen AMBULATOR 350.1.13.21 [place] Javier Y 0.2.7.2.686 of [id number] [facility] 370 e 2020-07-02 2020-07-02 Office RAUL Soliman 1.2.840.114 [id number] [facility] 08:50:02 09:20:02 Visit Albin AMBULATOR 350.1.13.21 College Rosalina Y 0.2.7.2.686 of [id number] [facility] charlee 335 e 2020-07-02 2020-07-02 Office RAUL Soliman 1.2.840.114 [id number] 08:50:02 09:20:02 Visit Albin AMBULATOR 350.1.13.21 Rosalina Y 0.2.7.2.686 [id number] 335 2020-06-28 2020-06-28 Office RAUL Laura 1.2.840.114 [id number] [facility] 09:53:30 10:13:30 Visit Rocky S AMBULATOR 350.1.13.21 College Y 0.2.7.2.686 of [id number] [facility] [place] 600 e 2020-06-28 2020-06-28 Office Valentín, BCM 1.2.840.114 [id number] 09:53:30 10:13:30 Visit Rocky S AMBULATOR 350.1.13.21 Y 0.2.7.2.686 [id number] 600 2020-06-25 2020-06-25 Office Denisse, BCM 1.2.840.114 [id number] [facility] 09:30:00 10:00:00 Visit Bridget Morfin AMBULATOR 350.1.13.21 College Win Y 0.2.7.2.686 of [id number] [facility] [place] 310 e 2020-06-25 2020-06-25 Office Denisse, BCM 1.2.840.114 [id number] 09:30:00 10:00:00 Visit Bridget Morfin AMBULATOR 350.1.13.21 Win Y 0.2.7.2.686 [id number] 310 2020-04-16 2020-04-16 Office RAUL Soliman 1.2.840.[id number] [place] [address] 10:00:07 10:34:47 Visit Albin AMBULATOR 350.1.13.21 College Rosalina Y 0.2.7.2.686 of [id number] [facility] 335 e 2020-04-16 2020-04-16 Office RAUL Soliman 1.2.840.114 [id number] 10:00:07 10:34:47 Visit Albin AMBULATOR 350.1.13.21 Rosalina Y 0.2.7.2.686 [id number] 335 2020-02-20 2020-02-20 Office RAUL Soliman 1.2.840.[id number] [place] [address] 10:40:33 11:12:10 Visit Albin AMBULATOR 350.1.13.21 College Rosalina Y 0.2.7.2.686 of [id number] Medi charlee 335 e 2020-02-20 2020-02-20 Office RAUL Soliman 1.2.840.114 [id number] 10:40:33 11:12:10 Visit Albin AMBULATOR 350.1.13.21 Rosalina Y 0.2.7.2.686 [id number] 335 2020-02-20 2020-02-20 Office RAUL Enriquez 1.2.840.114 [id number] [facility] 09:36:09 10:06:09 Visit Kayleen AMBULATOR 350.1.13.21 College Javier Y 0.2.7.2.686 of [id number] [facility] [place]lee 370 e 2020-02-20 2020-02-20 Office DOREEN Enriquez 1.2.840.114 [id number] 09:36:09 10:06:09 Visit Kayleen AMBULATOR 350.1.13.21 Javier Y 0.2.7.2.686 [id number] 370 2020-01-09 2020-01-09 Office DOREEN Enriquez 1.2.840.114 [id number] [facility] 08:08:09 10:16:20 Visit Kayleen AMBULATOR 350.1.13.21 College Javier Y 0.2.7.2.686 of [id number] [facility] 370 e 2020-01-09 2020-01-09 Office RAUL Enriquez 1.2.840.114 [id number] 08:08:09 10:16:20 Visit Kayleen AMBULATOR 350.1.13.21 Javier Y 0.2.7.2.686 [id number] 370 2019-12-19 2019-12-19 Office RAUL Soliman 1.2.840.114 [id number] 08:46:04 09:46:04 Visit Albin AMBULATOR 350.1.13.21 Rosalina Y 0.2.7.2.686 [id number] 335 2019-12-19 2019-12-19 Office RAUL Soliman 1.2.840.114 [id number] [facility] 08:46:04 09:46:04 Visit Albin AMBULATOR 350.1.13.21 College Rosalina Y 0.2.7.2.686 of [id number] [place] [address] e 2013-04-19 2013-04-19 Lab Report nullFlavo Pawan 1705 [id number] [facility] 00:00:00 00:00:00 r Bone & 595045 l [facility] 2012-09-01 2012-09-01 Lab Report nullFlavo Pawan 1685 [id number] [facility] 00:00:00 00:00:00 r Bone & 608032 l [facility] 2012-03-02 2012-03-02 Lab Report nullFlavo Pawan 1669 [id number] [facility] 00:00:00 00:00:00 r Bone & 854300 l [facility] 2011-10-30 2011-10-30 Office nullFlavo Pawan [id number] [facility] 00:00:00 00:00:00 Visit r Office [id number] [facility] 2011-10-29 2011-10-29 Lab Report nullFlavo Pawan 1658 [id number] [facility] 00:00:00 00:00:00 r Bone & 327551 l [facility] 2011-08-29 2011-08-29 Office nullFlavo Pawan [id number] [facility] 00:00:00 00:00:00 Visit r Office 868004 [facility] 2011-07-01 2011-07-01 Lab Report desireeFlavo PAWAN 1648 [id number] [facility] 00:00:00 00:00:00 r BONE AND 533202 l [facility] 2011-06-20 2011-06-20 Office nullIbetho Alycia Figueroa 95820 33293 [facility] 00:00:00 00:00:00 Visit r Office 250251 [facility] 2011-06-20 2011-06-20 Lab Report nullFlavo PAWAN 1647 785009 [facility] 00:00:00 00:00:00 r BONE AND 775012 l [facility] Results Test Description Test Time Test Comments Results Result Comments Source TROPONIN I 2020-12-11 07:29:58 Test Item Value Reference Range Interpretation Comme nts TROPONIN I (test code = 0.029 ng/mL See_Comment [Au tomated message] The [id number]) system which ge nerated this result tra [...] biotin. Lab Interpretation Normal (test code = 63598-7) [facility] [id number] 07:29:58 Test Item Value Reference Interpretation Comments Range TROPONIN I (test 0.029 ng/mL See_Comment [Automated code = 6873794335) message] The system which generated this result transmitted reference range : <=0.034. The reference range was not used to interpret this result as normal/abnormal . SKYLAR (test code = Reference (Normal) SKYLAR) Range (defined by the 99th percentile reference [...] biotin. Lab Interpretation Normal (test code = 94105-1) [facility] METABOLIC PANEL (58761)2020-12-11 07:18:58 Test Item Value Reference Range Interpretation Comments NA (test code = 137 mmol/L 135-145 9204901554) K (test code = 3.6 mmol/L 3.5-5.0 9312498801) CL (test code = 102 mmol/L 98-108 2992331525) CO2 TOTAL (test code = 25 mmol/L 23-31 7648024187) AGAP (test code = 2-16 3824090507) BUN (test code = 18 mg/dL 7-23 9257154356) GLUCOSE (test code = 115 mg/dL 70-110 H 8326550580) CREATININE (test code = 1.80 mg/dL 0.50-1.04 H 5711496540) TOTAL BILI (test code = 1.1 mg/dL 0.1-1.2 9943444625) CALCIUM (test code = 9.1 mg/dL 8.6-10.6 0925155077) T PROTEIN (test code = 8.1 g/dL 6.3-8.2 8502423215) ALBUMIN (test code = 4.4 g/dL 3.5-5.0 1669254594) ALK PHOS (test code = 52 U/L 34-122 0104773203) ALTv (test code = 30 U/L 5-35 2-6) AST(SGOT) (test code = 57 U/L 13-40 H 0282571349) eGFR (test code = mL/min/1.73m2 1466508907) SKYLAR (test code = SKYLAR) Association of [...] tests). Lab Interpretation Abnormal (test code = 26080-0) [facility]. METABOLIC PANEL (06534)2020-12-11 07:18:58 Test Item Value Reference Range Interpretation Comments NA (test code = 137 mmol/L 135-145 2919800161) K (test code = 3.6 mmol/L 3.5-5.0 7604510384) CL (test code = 102 mmol/L 98-108 6216951810) CO2 TOTAL (test code = 25 mmol/L 23-31 8414028336) AGAP (test code = 2-16 9679393979) BUN (test code = 18 mg/dL 7-23 3613635543) GLUCOSE (test code = 115 mg/dL 70-110 H 6519059084) CREATININE (test code = 1.80 mg/dL 0.50-1.04 H 5415449472) TOTAL BILI (test code = 1.1 mg/dL 0.1-1.0 1288268841) CALCIUM (test code = 9.1 mg/dL 8.6-10.6 1442462172) T PROTEIN (test code = 8.1 g/dL 6.3-8.2 6626264459) ALBUMIN (test code = 4.4 g/dL 3.5-5.0 5122092913) ALK PHOS (test code = 52 U/L 34-122 3157164761) ALTv (test code = 30 U/L 5-35 1742-6) AST(SGOT) (test code = 57 U/L 13-40 H 0141703099) eGFR (test code = mL/min/1.73m2 4836892799) SKYLAR (test code = SKYLAR) Association of [...] tests). Lab Interpretation Abnormal (test code = 95878-6) [facility]-19 (ID NOW RAPID TESTING)2020-12-11 06:56:56 Test Item Value Reference Range Interpretation Comments SARS-CoV-2 Rapid ID NOW Positive Not Detected A (test code = 89887-6) SKYLAR (test code = SKYLAR) ID NOW COVID-19 Assay is an isothermal nucleic acid amplification test intended for the qualitative detection of nucleic acid from SARS-CoV-2 viral RNA in nasopharyngeal (PRECISION HONER) specimens. It is used under Emergency Use [...] indicated. Lab Interpretation Abnormal (test code = 67074-1) [facility] (ID NOW RAPID TESTING)2020-12-11 06:56:56 Test Item Value Reference Range Interpretation Comments SARS-CoV-2 Rapid ID NOW Positive Not Detected A (test code = 79598-4) SKYLAR (test code = SKYLAR) ID NOW COVID-19 Assay is an isothermal nucleic acid amplification test intended for the qualitative detection of nucleic acid from SARS-CoV-2 viral RNA in nasopharyngeal (PRECISION HONER) specimens. It is used under Emergency Use [...] indicated. Lab Interpretation Abnormal (test code = 01190-3) General acute hospital WITH [id number] 06:53:00 Test Item Value Reference Range Interpretation Comments WBC (test code = See_Comment L [Automated 3890-2) message] The sy stem which generated this result transmitted reference range : 4.30 - 11.10 10*3/?L. The reference range was not used to interpret this result as normal/abnormal . RBC (test code = See_Comment [Automated 779-8) message] The sy stem which generated this [...] (test code = 37.1 fL 39.0-49.9 L 93439-7) RDW-CV (test code = 13.0 % 12.0-15.5 788-0) PLT (test code = See_Comment L [Automated 777-3) message] The sy stem which generated this result transmitted reference range : 166 - 358 10*3/ ?L. The reference r mracos was not used to interpret this result as normal/abnormal . MPV (test code = 10.6 fL 9.5-12.9 50618-6) IPF % (test code = 2.4 % 1.3-7.7 Platelet count [id number]) measured by fluorescence method. NRBC/100 WBC (test See_Comment [Automat ed code = 0460476044) message] The system which generated this result transmitted reference range : 0.0 - 10.0 /100 WBCs. The refer ence range was not u sed to interpret th is result as normal/abnormal . NRBC x10^3 (test code <0.01 See_Comment [Auto mated = 8978686624) message] The s ystem which generated this result transmitted reference range : 10*3/?L. The reference range was not used to interpret this result as normal/abnormal . GRAN MAT (NEUT) % 85.3 % (test code = 770-8) IMM GRAN % (test code 0.50 % = 4180192382) LYMPH % (test code = 8.8 % 736-9) MONO % (test code = 5.4 % 5905-5) EOS % (test code = 0.0 % 713-8) BASO % (test code = 0.0 % 706-2) GRAN MAT x10^3(ANC) 3.30 10*3/uL 1.88-7.09 (test code = 7408283279) IMM GRAN x10^3 (test <0.03 0.00-0.06 code = 8214289017) LYMPH x10^3 (test code 0.34 10*3/uL 1.32-3.29 L = 731-0) MONO x10^3 (test code 0.21 10*3/uL 0.33-0.92 L = 742-7) EOS x10^3 (test code = <0.03 0.03-0.39 L 711-2) BASO x10^3 (test code <0.03 0.01-0.07 = 704-7) Lab Interpretation Abnormal (test code = 96703-9) General acute hospital WITH [id number] 06:53:00 Test Item Value Reference Range Interpretation [...] (test code = 37.1 fL 39.0-49.9 L 92677-1) RDW-CV (test code = 13.0 % 12.0-15.5 788-0) PLT (test code = See_Comment L [Automated 777-3) message] The sy stem which generated this result transmitted reference range : 166 - 358 10*3/ ?L. The reference r marcos was not used to interpret this result as normal/abnormal . MPV (test code = 10.6 fL 9.5-12.9 43730-2) IPF % (test code = 2.4 % 1.3-7.7 Platelet count [id number]) measured by fluorescence method. NRBC/100 WBC (test See_Comment [Automat ed code = 9701965633) message] The system which generated this result transmitted reference range : 0.0 - 10.0 /100 WBCs. The refer ence range was not u sed to interpret th is result as normal/abnormal . NRBC x10^3 (test code <0.01 See_Comment [Auto mated = 8420063989) message] The s ystem which generated this result transmitted reference range : 10*3/?L. The reference range was not used to interpret this result as normal/abnormal . GRAN MAT (NEUT) % 85.3 % (test code = 770-8) IMM GRAN % (test code 0.50 % = 4037474507) LYMPH % (test code = 8.8 % 736-9) MONO % (test code = 5.4 % 5905-5) EOS % (test code = 0.0 % 713-8) BASO % (test code = 0.0 % 706-2) GRAN MAT x10^3(ANC) 3.30 10*3/uL 1.88-7.09 (test code = 7004309029) IMM GRAN x10^3 (test <0.03 0.00-0.06 code = 0174528588) LYMPH x10^3 (test code 0.34 10*3/uL 1.32-3.29 L = 731-0) MONO x10^3 (test code 0.21 10*3/uL 0.33-0.92 L = 742-7) EOS x10^3 (test code = <0.03 0.03-0.39 L 711-2) BASO x10^3 (test code <0.03 0.01-0.07 = 704-7) Lab Interpretation Abnormal (test code = 44763-2) [facility] HEMOGLOBIN A1C [id number] 21:52:00 Test Item Value Reference Range Interpretation Comments POCT HBA1C (test code = 4548-4) 5.5 % 4-6 [facility] HEMOGLOBIN A1C [id number] 21:52:00 Test Item Value Reference Range Interpretation Comments POCT HBA1C (test code = 4548-4) 5.5 % 4-6 [facility] 14:30:00<1.0 mg/L [facility] 14:30:00<1.0 [facility] Flpczyman6245-74-64 14:30:00<1.0 mg/L[facility] GjhfrxgScudjlmkz2620-35-39 14:30:00<1.0 mg/LMem[facility] XtwxviyDdyqlrkco4623-20-98 14:30:00<1.0 mg/L [facility] YdagrbiOxjbwposi0338-15-92 14:30:00<1.0 mg/L[facility] Sbxpswqvc6164-27-80 14:30:00<1.0 mg/LMemorial WnetizeUkwzmfyheg9160-87-90 11:43:0024[facility] HjxptzxYgbasmysli6975-72-28 11:43:0024[facility] Geedllkwxo4518-64-59 11:43:0024[facility] VksegztHndjhenewo3958-22-69 11:43:0024 [facility] LaiscgrDdzkzombms0056-16-18 11:43:0024[facility] 2012-09-02 11:43:0024[facility] CtylapxQghkowsyoh0886-61-88 11:43:0024[facility] WtjgzewWvxxxkoubw3701-43-09 10:33:0012.4[facility] BybnmirUwpboffxfj4982-53-80 10:33:0037.0[facility] FudhstiOontkpoyoo2617-63-43 10:33:94218 X10E3/ULMemorial AyemdozPmtjbeqwcq9366-75-82 10:33:0012.4[facility] XmquxhhFftygndifo8597-53-82 10:33:0037.0[facility] FsnnhwbFhzgxpavkp4763-35-56 10:33:76171 X10E3/ULMemorial KanlbckItcfnjapzs2291-23-46 10:33:0012.4[facility] LxfauvhDbcqzipdrz2697-03-03 10:33:0037.0[facility] MnmgulkVynwhczxib1051-34-98 10:33:86781 X10E3/ULMemorial JsolbsbGjkbnuomjz1337-10-27 10:33:0012.4[facility] OzesvslMnvvtwwbvo3798-18-82 10:33:0037.0[facility] HjznjtxJlgzyxkjja8967-17-70 10:33:58341 X10E3/ULMemorial PstwjvaDcbpnfpope3685-78-18 10:33:0012.4[facility] XssdmrbEolhijjlht5400-28-75 10:33:0037.0[facility] ZegcyrtRxvhqibyjz0206-20-15 10:33:62175 X10E3/ULMemorial VhqosxrOvebwbuhks6233-56-19 10:33:0012.4[facility] PuldydxGtlqxfhdrh8599-78-56 10:33:0037.0[facility] LrqvkpqJcnusmukgq5145-86-98 10:33:59049 X10E3/ULMemorial HpsiufmEsxopdaobp6460-54-74 10:33:0012.4[facility] BbsdsllJwxhzioqtc4807-23-02 10:33:0037.0[facility] DrjxryiTrvsapufts8648-21-08 10:33:37714 X10E3/ULMem[facility] RytcimgPolbxjlfpv7549-71-77 10:46:0012.4[facility] JnaetptPsawyfzmjj6030-25-05 10:46:0037.6[facility] TrnriboSbhkjorkja4833-67-90 10:46:03674 X10E3/ULMemorial QhtelifJaiufsseil8773-06-86 10:46:0012.4[facility] SorlpztUxivdeygzf8214-49-60 10:46:0037.6[facility] McxdgglEuceethmnt3886-29-86 10:46:44976 X10E3/ULMemorial FhmhoriRupcenkkzu3634-67-27 10:46:0012.4[facility] KferxrnHsrfgztajy2770-21-48 10:46:0037.6[facility] HrzjtvtOivnuclavk3437-19-59 10:46:07931 X10E3/ULMemorial KdplochCpzlxeqghq4458-07-21 10:46:0012.4[facility] RntkgggEaqbifsrst7493-82-00 10:46:0037.6[facility] MuceohkNaniarakis5178-48-06 10:46:51174 X10E3/ULMemorial FnmytqoTpahlaeqsi8712-19-37 10:46:0012.4[facility] TxiiwbeByewlafhda6800-29-41 10:46:0037.6[facility] VgqvvjcRqoryxsvlh0909-45-83 10:46:54249 X10E3/ULMemorial AjhidkmZtinqudlzb5531-74-23 10:46:0012.4[facility] VjkxycqQakdrjkule0252-11-16 10:46:0037.6[facility] ScijztaTeoskhvbeh2603-18-44 10:46:73440 X10E3/ULMemorial TzllsjzDpgfxcrioq3476-55-39 10:46:0012.4[facility] VmmwrarVwrjtnaruw6504-00-17 10:46:0037.6[facility] XwktoedCdtlqoozsv6156-22-46 10:46:23607 X10E3/ULMemorial LubtcdlDdzsdiibm4546-48-49 06:34:000.97[facility] ItwbxfwJhkoscabx4130-40-23 06:34:000.97[facility] SyljcyxOvecgshed5788-10-60 06:34:000.97[facility] Kjjcyjpoe3968-76-19 06:34:000.97[facility] WvgzmhwQjvvuioeo8590-54-60 06:34:000.97 [facility] CtnbrxiPrewwfvls2059-07-09 06:34:000.97[facility] 2011-07-02 06:34:000.97[facility] LdhngquBaphdthsn5513-44-83 06:34:000.97[facility] QmnfdedQphifdayb6924-61-78 06:34:000.97[facility] SejbrbpIuwvfpppw0430-34-09 06:34:000.97[facility] VyzgktrLqnbplyim1328-26-24 06:34:000.97[facility] [place] Wvyqjgwrl4822-21-50 06:34:000.97[facility] DiqorkoObmohyude6888-89-55 06:34:000.97 [facility] OsdjdyvAwcvjhzch3388-77-46 06:34:000.97[facility] 2011-03-08 07:25:0012.2[facility] CiizutrEfuhzerjfg3601-43-04 07:25:0038.0[facility] TurojyrSpzzwkxrfh5512-29-01 07:25:26607 X10E3/ULMem[facility] 2011-03-08 07:25:0012.2[facility] QszaharNjpsplrqbc8219-42-03 07:25:0038.0[facility] EunsjvtGkabfkjqpv6993-38-35 07:25:66592 X10E3/UL[facility] 2011-03-08 07:25:0012.2[facility] IdcjeqtOorqcnmjdl7809-87-10 07:25:0038.0[facility] EkfpvhkWeohqicwhr9873-20-43 07:25:64000 X10E3/UL[facility] 2011-03-08 07:25:0012.2[facility] KezkagbQaretlxrxk6191-48-19 07:25:0038.0[facility] YpjgidjMcgcosjwbd0883-18-22 07:25:34078 X10E3/UL[facility] 2011-03-08 07:25:0012.2[facility] LkfmzlgGsjcubombu9629-55-00 07:25:0038.0[facility] OtxxifyAthlsdeeyt5775-43-40 07:25:82961 X10E3/UL[facility] 2011-03-08 07:25:0012.2[facility] FvkgtsvJdhidrnalf1617-84-42 07:25:0038.0[facility] OpokzufQqsetfnspb9021-37-89 07:25:38084 X10E3/ULMem[facility] 2011-03-08 07:25:0012.2[facility] MqtzxiqLmdljfueeh9478-89-27 07:25:0038.0[facility] KllmkynRndsadxxni7900-55-75 07:25:26460 X10E3/ULMem[facility]Chem[facility] 2011-03-08 07:04:000.97[facility] TngmnspNqmmcuktd2456-37-37 07:04:000.97[facility] UibirooTwrgbudcn9181-78-81 07:04:000.97[facility] UwtwpdgUanxeqpod3209-33-04 07:04:000.97[facility] UuodnpwGbjoaqour1711-48-23 07:04:000.97[facility] [place] Uxdjqbyfy7696-41-59 07:04:000.97[facility] TogvahePsvcwygkd9903-21-13 07:04:000.97 [facility] AjhhgxxVtqlbshwz3654-17-73 07:04:000.97[facility] 2011-03-08 07:04:000.97[facility] CeunipiHqkipvqjj3542-49-50 07:04:000.97[facility] XdhlqnrEyyviivbz7503-90-93 07:04:000.97[facility] CuwrmbwMkavozfbz4240-15-33 07:04:000.97[facility] TrxcizfAqwcngszb6082-32-23 07:04:000.97[facility] [place] Idmrmzofb9636-40-52 07:04:000.97[facility] HwbkdumKaqtxldrn2811-98-03 07:04:000.97 [facility] XjezsslTizzaujhp0764-82-49 07:04:000.97[facility] 2011-03-08 07:04:000.97[facility] UvzyxbdNjtgthqui9223-45-69 07:04:000.97[facility] QpwyjkkJfcnmjfqm7755-60-93 07:04:000.97[facility] AcfwvddIrdqaovvz8613-71-90 07:04:000.97[facility] SanvdetHuthcozwx2744-97-96 07:04:000.97[facility] [place]"
== END 2021-02-16 15:03 | disposition home or self-care (01) ==
LOC: ER 13:52
DX: R09.81 Nasal congestion (principal); Z88.2 Allergy status to sulfonamides; Z88.1 Allergy status to other antibiotic agents; I10 Essential (primary) hypertension; E11.9 Type 2 diabetes mellitus without complications; E78.00 Pure hypercholesterolemia, unspecified; M06.9 Rheumatoid arthritis, unspecified
CPT/HCPCS: 99281

== ENCOUNTER 2021-04-10 17:42 | Emergency (ER) | payer OTHER ==
--- OUTSIDE RECORDS SUMMARY | 2021-04-10 17:53 | XMS REPORT | Continuity of Care Document ---
:1950 Author Organization [facility] t Address [address] [place] [address] Care Team Providers Name Role Phone Josh Driscoll MD Primary Care Physician Puma LU Attending Clinician Unavailable ROSALINA SOLIMAN Attending Clinician Unavailable Doctor Unassigned, Name Attending Clinician Unavailable EVANGELISTA Attending Clinician Unavailable Ebrahim MOBILE DEVICE DEVELOPER Attending Clinician Green MOBILE DEVICE DEVELOPER Attending Clinician Alfonso RN, T Attending Clinician Unavailable Only, Db Test Attending Clinician Unavailable Araseli MOBILE DEVICE DEVELOPER, J Attending Clinician Rudolph HUNG Attending Clinician Unavailable Ibikunle MOBILE DEVICE DEVELOPER, F Attending Clinician Corinne MOBILE DEVICE DEVELOPER Attending Clinician Brynn WEINBERG, Puma Attending Clinician Jewel Araujo MD Attending Clinician 2, Lab Attending Clinician Unavailable JEWEL ARAUJO Attending Clinician Unavailable JEWEL ARAUJO Attending Clinician Unavailable Zoe WEINBERG, Javier Attending Clinician Rosalina Soliman DO Attending Clinician Paulette Laura DPM Attending Clinician Denisse WEINBERG, Navjot Walden Attending Clinician [phone] Issa Attending Clinician Unavailable Issa Admitting Clinician Unavailable Payers Payer Name Policy Type Policy Number Effective Date Expiration Date Paulette guy [facility] [id number] 2018 00:00:00 CIGNA MEDICARE - [id number] RNPO PCP AARP [facility] ADVANTAGE [id number] 2019 HMO-POS-[facility] 00:00:00 ZZZMEDICARE [id number] 2015 ADVANTAGE PLAN-PPO 00:00:00 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/2015 [facility] OPID Mobile Retained Retained Disease Active [facility] ureteral ureteral 7-11 Colleg e stent stent 00:00: of 00 Medicin e Sarcoidosi Sarcoidosi Disease Active [facility] a[facility]onna s s 2-11 College 00:00: of 00 Medicin e Renal mass Renal mass Disease Active 2014-04 [facility] 2-22 College 00:00: of 00 Medicin e Left flank Left flank Disease Active 2014-04 [facility] pain pain -22 College 00:00: of 00 Medicin e HYPERCHOLE Condition Active 2010-042013-04-19 Memoria STEROLEMIA 04-16 11:19:00 l 00:00: [place] HYPERCHOLE 00 STEROLEMIA Active 02/14/2011 Condition 4 [facility] BIPOLAR Condition Active 2010-042013-04-19 Me moria DISORDER 04-16 11:19:00 l UNSPECIFIE BIPOLAR 00:00: Her huffman D DISORDER 00 UNSPECIFIE D Active 02/14/2011 Condition 4 [facility] HYPERLIPID Condition Inactiv 2013-04-19 Memoria EMIA e 11:19:00 l [place] HYPERLIPID EMIA Inactive Condition 4 [facility] PAIN IN Condition Inactiv 2013-04-19 M emoria JOINT, e 11:19:00 l MULTIPLE PAIN IN Lacy nn SITES JOINT, MULTIPLE SITES Inactive Condition 4 [facility] SARCOIDOSI Condition Inactiv 2013-04-19 Memoria S e 11:19:00 l Bull SARCOIDOSI S Inactive Condition 4 [facility] UNSPECIFIE Condition Inactiv 2013-04-19 Memoria D e 11:19:00 l INFLAMMATO Alex n RY UNSPECIFIE POLYARTHRO D TE INFLAMMATO RY POLYARTHRO TE Inactive Condition 4 [facility] TENDINITIS Condition Inactiv 2013-04-19 Memoria , e 11:19:00 l SHOULDER, [place] RIGHT TENDINITIS , SHOULDER, RIGHT Inactive Condition 4 [facility] BACK PAIN, Condition Inactiv 2013-04-19 Memoria LUMBAR e 11:19:00 l BACK Bull PAIN, LUMBAR Inactive Condition 4 [facility] l Bull ARTHRITIS, RHEUMATOID Active Condition 04/19/2013 [facility] HYPERTENSI Condition Active 2013-04-19 Memoria ON 11:19:00 l [place] HYPERTENSI ON Active Condition 04/19/2013 [facility] No known No known Disease Unive rs active active ity of problems problems [facility] DIABETES Condition Active 2013-04-19 M emoria MELLITUS, 11:19:00 l TYPE I, DIABETES Lacy nn ADULT MELLITUS, ONSET TYPE I, ADULT ONSET Active Condition 04/19/2013 [facility] VITAMIN D Condition Active 2013-04-19 Memoria DEFICIENCY 11:19:00 l VITAMIN Bull D DEFICIENCY Active Condition 04/19/2013 [facility] SHOULDER Condition Active 2013-04-19 M emoria PAIN, 11:19:00 l RIGHT SHOULDER Alex n PAIN, RIGHT Active Condition 04/19/2013 [facility] UNSPECIFIE Condition Active 2013-04-19 Memoria D 11:19:00 l ARTHROPATH Alex n Y SITE UNSPECIFIE UNSPECIFIE D D ARTHROPATH Y SITE UNSPECIFIE D Active Condition 04/19/2013 [facility] History of Past Illness Condition Condition Condition Status Onset Resolution Last Treating Co mments Source Name Details Category Date Date Treatment Clinician Date RIGHT Condition Inactiv 2013-04-19 2013-04-19 Memoria CUBITAL e - 11:19:00 11:19:00 l TUNNEL RIGHT 00:00: Bull SYNDROME CUBITAL 00 TUNNEL SYNDROME Inactive 04/18/2011 Condition 4 [facility] RIGHT Condition Inactiv 2010-042013-04-19 2013-04-19 Memoria CARPAL e - 11:19:00 11:19:00 l TUNNEL RIGHT 00:00: [place] SYNDROME CARPAL 00 TUNNEL SYNDROME Inactive 02/14/2011 Condition 4 [facility] Allergies, Adverse Reactions, Alerts Allergy Allergy Status Severity Reaction(s) Onset Inactive Treating Comm ents Source Name Type Date Date Clinician Sulfa Propensi Active [facility] Antibiot ty to 04-10 [facility] ics adverse 00:00: of reaction 00 Medicin s to e drug Amoxicil Propensi Active Shortness Of Julian courtney ty to Breath 12-11 College adverse 00:00: of reaction 00 Medicin s to e drug AMOXICIL DRUG Active SOB Univers COURTNEY INGREDI 12-11 ity of 00:00: [place] 00 Medical Branch Amoxicil Propensi Active Shortness of Univers courtney ty to Breath 12-11 ity of adverse 00:00: [place] reaction 00 Medical s Branch Glipizid Propensi Active Julian e ty to 12-18 [facility] adverse 00:00: of reaction 00 Medicin s to e drug NO KNOWN Drug Active Univers ALLERGIE Class ity of S [facility] Social History Social Habit Start Date Stop Date Quantity Comments Source Exposure to Not sure University of SARS-CoV-2 [place] Medical (event) Branch Alcohol intake 2021-04-10 2021-04-10 Current [facility] Col lege of 00:00:00 00:00:00 non-drinker of Medicine alcohol (finding) Tobacco use and 2015-03-27 2015-03-27 Smokeless tobacco nakia [facility] of exposure 00:00:00 00:00:00 non-user Medicine Sex [birth year] [facility] Co llege of 00:00:00 00:00:00 Medicine Smoking Status Start Date Stop Date Source Never smoked tobacco [facility] Gabbie ege of Medicine Medications Ordered Filled Start Stop Current Ordering Indication Dosage Frequency Signature Comments Components Source Medication Medication Date Date Medication? Clinician (SIG) Name Name GABAPENTIN 2021- No Take by Rodney yee OR 04-10 mouth. [facility] 09:48: 00:00 of 04 :00 Medicin e AMLODIPINE 2021- No Take by Rodney yee BESYLATE OR 04-10 mouth. Colle ge 09:44: 00:00 of 59 :00 Medicin e carvedilol Yes [id number] 25mg Take 25 mg [facility] (COREG) 1-05 by mouth 2 Colleg e 6.25 MG 09:39: times of tablet 14 daily Medicin (with e meals). omeprazole Yes 1{capsu Take 1 Cap [facility] (PRILOSEC) 1-05 le} by mouth Colle ge 40 MG 09:39: daily. of capsule 14 Medicin e Fluticasone Yes by Nasal Rodney yee Propionate 1-05 route. [facility] (FLONASE 09:39: of ALLERGY 14 Medicin RELIEF NA) e pioglitazon Yes 15mg Take 15 mg [facility] e (ACTOS) 1-05 by mouth Colleg e 15 MG 09:39: daily. of tablet 14 Medicin e Acetaminoph Yes 650mg Take 650 [facility] en 1-05 mg by [place] (TYLENOL) 09:39: mouth of 325 MG CAPS 14 daily. Medici n e torsemide 2020-04 Yes 20mg Take 1 [facility] (DEMADEX) 1-10 Tablet by Colle ge 20 MG 00:00: mouth of tablet 00 every 3 Medicin days. e losartan 2020-04- No 25mg Take 1 [facility] (COZAAR) 25 04-07 Tablet by Co llege MG tablet 00:00: 00:00 mouth of 00 :00 daily. Medicin e Empaglifloz 2020-04- No 10mg Take 10 mg [facility] in 005 by mouth College (JARDIANCE) 00:00: 00:00 daily. of 10 MG TABS 00 :00 Medicin e maalox:diph 2020- No 15mL 15 mL, Uni vers enhydrAMINE 12-11 Oral, ity of :lidocaine 07:30: 06:48 ONCE, 1 [facility] as 2 % viscous 00 :00 dose, Tue Med ical 1:1:1 12/11/20 at [place] (FIRST-MOUT 0230, [facility]) Routine oral suspension 15 mL albuterol 2020- No 6{puff} 6 Puff, U nivers (VENTOLIN) 12-11 Inhalation it y of inhaler 6 07:30: 07:02 [place] :[place] dose, [facility] Medical 12/11/20 at [place] 0230, CAITLIN NaCl 0.9% No 1000mL at 999 Uni vers (NS) bolus 12-11 mL/hr, ity of infusion 07:30: 07:44 1,000 mL, [facility] as 1,000 mL 00 :00 [facility], 1 dose, [facility] 12/11/20 at 0230, STAT acetaminoph No 1000mg 1,000 mg, Univers en 12-11 Oral, ity of (TYLENOL) 07:30: 06:30 [place]CE, [place] tablet [place] :00 dose, [facility] Medical 1,000 mg 12/11/20 at [place] 0230, Routine maalox:diph 2020- No 15mL 15 mL, Uni vers enhydrAMINE 12-11 Oral, ity of :lidocaine 07:30: 06:48 ONCE, 1 [place] as 2 % viscous 00 :00 dose, Tue Med ical 1:1:1 12/11/20 at [place] (FIRST-MOUT 0230, [facility]) Routine oral suspension 15 mL albuterol 2020- No 6{puff} 6 Puff, U nivers (VENTOLIN) 12-11 Inhalation it y of inhaler 6 07:30: 07:02 [place] :[place] dose, [facility] Medical 12/11/20 at [place] 0230, CAITLIN NaCl 0.9% 2020- No 1000mL at 999 Uni vers (NS) bolus 12-11 mL/hr, ity of infusion 07:30: 07:44 1,000 mL, [place] as 1,000 mL 00 :00 IV Medical Piggyback, [place] ONCE, 1 dose, [facility] 12/11/20 at 0230, STAT acetaminoph No 1000mg 1,000 mg, Univers en 12-11 Oral, ity of (TYLENOL) 07:30: 06:30 [place]CE, [place] tablet [place] :00 dose, [facility] 1,000 mg 12/11/20 at [place] 0230, Routine ondansetron Yes [id number] 4mg Take 1 Univers 4 mg 9-07 tablet by ity of disintegrat 00:00: mouth [place] ing tablet 00 every 8 Medica l (eight) Branch hours as needed for Nausea and Vomiting (N/V). albuterol Yes [id number] 6{puff} Inhale 6 Univers 90 9-07 Puffs ity of mcg/actuati 00:00: every 4 [facility] as on inhaler 00 (four) Medical hours as Branch needed for Wheezing or Shortness of Breath. benzonatate Yes [id number] 100mg Take 1 Univers 100 mg 9-07 capsule by ity of capsule 00:00: mouth 3 [place] 00 (three) Medical times Branch daily as needed for Cough. ondansetron 0 Yes [id number] 4mg Take 1 Univers 4 mg 9-07 tablet by ity of disintegrat 00:00: mouth [place] ing tablet 00 every 8 Medica l (eight) Branch hours as needed for Nausea and Vomiting (N/V). albuterol Yes [id number] 6{puff} Inhale 6 Univers 90 9-07 Puffs ity of mcg/actuati 00:00: every 4 [place] as on inhaler 00 (four) Medical hours as Branch needed for Wheezing or Shortness of Breath. benzonatate 2020-0 Yes [id number] 100mg Take 1 Univers 100 mg 9-07 capsule by ity of capsule 00:00: mouth 3 [place] 00 (three) Medical times Branch daily as needed for Cough. ondansetron 2020-0 Yes [id number] 4mg Take 1 Univers 4 mg 9-07 tablet by ity of disintegrat 00:00: mouth [place] ing tablet 00 every 8 Medica l (eight) Branch hours as needed for Nausea and Vomiting (N/V). albuterol 2020-0 Yes [id number] 6{puff} Inhale 6 Univers 90 9-07 Puffs ity of mcg/actuati 00:00: every 4 [place] as on inhaler 00 (four) Medical hours as Branch needed for Wheezing or Shortness of Breath. benzonatate 0 Yes [id number] 100mg Take 1 Univers 100 mg 9-07 capsule by ity of capsule 00:00: mouth 3 [place] 00 (three) Medical times Branch daily as needed for Cough. ondansetron 2020-0 Yes [id number] 4mg Take 1 Univers 4 mg 9-07 tablet by ity of disintegrat 00:00: mouth [place] ing tablet 00 every 8 Medica l (eight) Branch hours as needed for Nausea and Vomiting (N/V). albuterol 2020-0 Yes [id number] 6{puff} Inhale 6 Univers 90 9-07 Puffs ity of mcg/actuati 00:00: every 4 [place] as on inhaler 00 (four) Medical hours as Branch needed for Wheezing or Shortness of Breath. benzonatate 2020-0 Yes [id number] 100mg Take 1 Univers 100 mg 9-07 capsule by ity of capsule 00:00: mouth 3 [place] 00 (three) Medical times Branch daily as needed for Cough. ondansetron 2020-0 Yes [id number] 4mg Take 1 Univers 4 mg 9-07 tablet by ity of disintegrat 00:00: mouth [place] ing tablet 00 every 8 Medica l (eight) Branch hours as needed for Nausea and Vomiting (N/V). albuterol 2020-0 Yes [id number] 6{puff} Inhale 6 Univers 90 9-07 Puffs ity of mcg/actuati 00:00: every 4 [place] as on inhaler 00 (four) Medical hours as Branch needed for Wheezing or Shortness of Breath. benzonatate 2020-0 Yes [id number] 100mg Take 1 Univers 100 mg 9-07 capsule by ity of capsule 00:00: mouth 3 [place] 00 (three) Medical times Branch daily as needed for Cough. ondansetron 2020-0 Yes [id number] 4mg Take 1 Univers 4 mg 9-07 tablet by ity of disintegrat 00:00: mouth [place] ing tablet 00 every 8 Medica l (eight) Branch hours as needed for Nausea and Vomiting (N/V). albuterol 2020-0 Yes [id number] 6{puff} Inhale 6 Univers 90 9-07 Puffs ity of mcg/actuati 00:00: every 4 [place] as on inhaler 00 (four) Medical hours as Branch needed for Wheezing or Shortness of Breath. benzonatate 2020-0 Yes [id number] 100mg Take 1 Univers 100 mg 9-07 capsule by ity of capsule 00:00: mouth 3 [place] 00 (three) Medical times Branch daily as needed for Cough. ondansetron 2020-0 Yes [id number] 4mg Take 1 Univers 4 mg 9-07 tablet by ity of disintegrat 00:00: mouth [place] ing tablet 00 every 8 Medica l (eight) Branch hours as needed for Nausea and Vomiting (N/V). albuterol 2020-0 Yes [id number] 6{puff} Inhale 6 Univers 90 9-07 Puffs ity of mcg/actuati 00:00: every 4 [place] as on inhaler 00 (four) Medical hours as Branch needed for Wheezing or Shortness of Breath. benzonatate 2020-0 Yes [id number] 100mg Take 1 Univers 100 mg 9-07 capsule by ity of capsule 00:00: mouth 3 [place] 00 (three) Medical times Branch daily as needed for Cough. ondansetron 2020-0 Yes [id number] 4mg Take 1 Univers 4 mg 9-07 tablet by ity of disintegrat 00:00: mouth [place] ing tablet 00 every 8 Medica l (eight) Branch hours as needed for Nausea and Vomiting (N/V). albuterol 202-0 Yes [id number] 6{puff} Inhale 6 Univers 90 9-07 Puffs ity of mcg/actuati 00:00: every 4 [place] as on inhaler 00 (four) Medical hours as Branch needed for Wheezing or Shortness of Breath. benzonatate 2020-0 Yes [id number] 100mg Take 1 Univers 100 mg 9-07 capsule by ity of capsule 00:00: mouth 3 [place] 00 (three) Medical times Branch daily as needed for Cough. carvediloL 2021-0 Yes 25mg Take 25 mg U nivers (COREG) 25 7-23 by mouth 2 ity of mg tablet 21:40: (two) [place] 12 times Medical daily with Branch meals. carvediloL 2021-0 Yes 25mg Take 25 mg U nivers (COREG) 25 7-23 by mouth 2 ity of mg tablet 21:40: (two) [place] 12 times Medical daily with Branch meals. carvediloL 2021-0 Yes 25mg Take 25 mg U nivers (COREG) 25 7-23 by mouth 2 ity of mg tablet 21:40: (two) [place] 12 times Medical daily with Branch meals. carvediloL 2021-0 Yes 25mg Take 25 mg U nivers (COREG) 25 7-23 by mouth 2 ity of mg tablet 21:40: (two) [place] 12 times Medical daily with Branch meals. carvediloL 2021-0 Yes 25mg Take 25 mg U nivers (COREG) 25 7-23 by mouth 2 ity of mg tablet 21:40: (two) [place] 12 times Medical daily with Branch meals. carvediloL 2021-0 Yes 25mg Take 25 mg U nivers (COREG) 25 7-23 by mouth 2 ity of mg tablet 21:40: (two) [place] 12 times Medical daily with Branch meals. carvediloL 2021-0 Yes 25mg Take 25 mg U nivers (COREG) 25 7-23 by mouth 2 ity of mg tablet 21:40: (two) [place] 12 times Medical daily with Branch meals. carvediloL 2021-0 Yes 25mg Take 25 mg U nivers (COREG) 25 7-23 by mouth 2 ity of mg tablet 16:40: (two) [place] 12 times Medical daily with Branch meals. carvediloL 2021-0 Yes 25mg Take 25 mg U nivers (COREG) 25 7-23 by mouth 2 ity of mg tablet 16:40: (two) [place] 12 times Medical daily with Branch meals. carvediloL 2021-0 Yes 25mg Take 25 mg U nivers (COREG) 25 7-23 by mouth 2 ity of mg tablet 16:40: (two) [place] 12 times Medical daily with Branch meals. carvediloL 2021-0 Yes 25mg Take 25 mg U nivers (COREG) 25 7-23 by mouth 2 ity of mg tablet 16:40: (two) [place] 12 times Medical daily with Branch meals. amLODIPine 2020-0 Yes [id number] 10mg Take 1 Un [facility]io 10 mg 7-23 tablet by ity of tablet 00:00: mouth [place] 00 daily. Medical Branch amLODIPine 2020-0 Yes [id number] 10mg Take 1 Un [place] 10 mg 7-23 tablet by ity of tablet 00:00: mouth [place] 00 daily. Medical Branch amLODIPine 2020-0 Yes [id number] 10mg Take 1 Un [place]io 10 mg 7-23 tablet by ity of tablet 00:00: mouth [place] 00 daily. Medical Branch amLODIPine 2020-0 Yes [id number] 10mg Take 1 Un [place]io 10 mg 7-23 tablet by ity of tablet 00:00: mouth [place] 00 daily. Medical Branch amLODIPine 2020-0 Yes [id number] 10mg Take 1 Un [place] 10 mg 7-23 tablet by ity of tablet 00:00: mouth [place] 00 daily. Medical Branch amLODIPine 2020-0 Yes [id number] 10mg Take 1 Un [place] 10 mg 7-23 tablet by ity of tablet 00:00: mouth [place] 00 daily. Medical Branch amLODIPine 2020-0 Yes [id number] 10mg Take 1 Un [place]io 10 mg 7-23 tablet by ity of tablet 00:00: mouth [place] 00 daily. Medical Branch amLODIPine 1-0 Yes [id number] 10mg Take 1 Un [place]io 10 mg 7-23 tablet by ity of tablet 00:00: mouth [place] 00 daily. Medical Branch amLODIPine 2020-0 Yes [id number] 10mg Take 1 Un [place]io 10 mg 7-23 tablet by ity of tablet 00:00: mouth [place] 00 daily. Medical Branch amLODIPine 2021-0 Yes [id number] 10mg Take 1 Un [place]io 10 mg 7-23 tablet by ity of tablet 00:00: mouth [place] 00 daily. Medical Branch amLODIPine 2021-0 Yes [id number] 10mg Take 1 Un [place]io 10 mg 7-23 tablet by ity of tablet 00:00: mouth [place] 00 daily. Medical Branch gabapentin 2021-0 Yes Take by Uni vers [...] 7-06 mouth ity of tablet, 10:13: daily. [place] extended 54 Medical release 24 Branch hr gabapentin 1-0 Yes Take by Uni vers ER 300 mg 7-06 mouth ity of tablet, 10:13: daily. [place] extended 54 Medical release 24 Branch hr gabapentin 1-0 Yes Take by Uni vers ER 300 mg 7-06 mouth ity of tablet, 10:13: daily. [place] extended 54 Medical release 24 Branch hr gabapentin 1-0 Yes Take by Uni vers ER 300 mg 7-06 mouth ity of tablet, 10:13: daily. [place] extended 54 Medical release 24 Branch hr predniSONE 1-0 Yes 5mg Take 5 mg Un julio 5 mg tablet 6-30 by mouth ity of 00:00: daily. [place] [address] Medical Branch torsemide 1-0 Yes 10mg Take 10 mg Un julio 20 mg 6-30 by mouth 3 ity of tablet 00:00: (three) [place] 00 times Medical daily. Branch predniSONE 1-0 Yes 5mg Take 5 mg Un [place]io 5 mg tablet 6-30 by mouth ity of 00:00: daily. [address] Branch torsemide 2021-0 Yes 20mg Take 20 mg Un julio 20 mg 6-30 by mouth ity of tablet 00:00: daily. [address] Branch predniSONE 2021-0 Yes 5mg Take 5 mg Un julio 5 mg tablet 6-30 by mouth ity of 00:00: daily. [address] Branch torsemide 2021-0 Yes 20mg Take 20 mg Un julio 20 mg 6-30 by mouth ity of tablet 00:00: daily. [address] Branch predniSONE 2021-0 Yes 5mg Take 5 mg Un julio 5 mg tablet 6-30 by mouth ity of 00:00: daily. [address] Branch torsemide 2021-0 Yes 20mg Take 20 mg Un julio 20 mg 6-30 by mouth ity of tablet 00:00: daily. [address] Branch predniSONE 2021-0 Yes 5mg Take 5 mg Un julio 5 mg tablet 6-30 by mouth ity of 00:00: daily. [address] Branch torsemide 2021-0 Yes 20mg Take 20 mg Un julio 20 mg 6-30 by mouth ity of tablet 00:00: daily. [address] Branch predniSONE 2021-0 Yes 5mg Take 5 [...] mouth 3 ity of tablet 00:00: (three) [place] 00 times Medical daily. Branch predniSONE 2021-0 Yes 5mg Take 5 mg Un julio 5 mg tablet 6-30 by mouth ity of 00:00: daily. Medical Branch torsemide 2021-0 Yes 10mg Take 10 mg Un julio 20 mg 6-30 by mouth 3 ity of tablet 00:00: (three) [place] 00 times Medical daily. Branch predniSONE 2021-0 Yes 5mg Take 5 mg Un julio 5 mg tablet 6-30 by mouth ity of 00:00: daily. Medical Branch torsemide 2021-0 Yes 10mg Take 10 mg Un julio 20 mg 6-30 by mouth 3 ity of tablet 00:00: (three) [place] 00 times Medical daily. Branch predniSONE 2021-0 [...] [place] 00 times Medical daily. Branch predniSONE 1-0 [...] mouth 3 ity of tablet 00:00: (three) [place] 00 times Medical daily. Branch predniSONE 1-0 Yes 5mg Take 5 mg Un julio 5 mg tablet 6-30 by mouth ity of 00:00: daily. Medical Branch torsemide 2020-0 Yes 10mg Take 10 mg Un julio 20 mg 6-30 by mouth 3 ity of tablet 00:00: (three) [place] 00 times Medical daily. Branch albuterol 0 Yes INHALE 2 Univ ers 90 6-25 PUFFS BY ity of mcg/actuati 00:00: MOUTH [place] on inhaler 00 EVERY 6 Medica l HOURS Branch NEEDED FOR SHORTNESS OF BREATH albuterol 0 Yes INHALE 2 Univ ers 90 6-25 PUFFS BY ity of mcg/actuati 00:00: MOUTH [place] on inhaler 00 EVERY 6 Medica l HOURS Branch NEEDED FOR SHORTNESS OF BREATH albuterol 0 Yes INHALE 2 Univ ers 90 6-25 PUFFS BY ity of mcg/actuati 00:00: MOUTH [place] on inhaler 00 EVERY 6 Medica l HOURS Branch NEEDED FOR SHORTNESS OF BREATH albuterol 0 Yes INHALE 2 Univ ers 90 6-25 PUFFS BY ity of mcg/actuati 00:00: MOUTH [place] on inhaler 00 EVERY 6 Medica l HOURS Branch NEEDED FOR SHORTNESS OF BREATH albuterol 0 Yes INHALE 2 Univ ers 90 6-25 [...] as drops 00 TWICE Medical DAILY Branch AMLODIPINE Yes Take by [place] donna BESYLATE OR 4-28 mouth. Colleg e 14:47: of 24 Medicin e GABAPENTIN Yes Take by Taylor donna OR 4-28 mouth. [facility] 14:47: of 24 Medicin e carvedilol Yes [id number] 25mg Take 25 mg [facility] (COREG) 4-28 by mouth 2 Colleg e 6.25 MG 14:47: times of tablet 24 daily Medicin (with e meals). losartan Yes 100mg Take 100 [facility] (COZAAR) 4-28 mg by [place] 100 MG 14:47: mouth of tablet 24 daily. Medicin e omeprazole Yes 1{capsu Take 1 Cap [facility] (PRILOSEC) 4-28 le} by mouth Colle ge 40 MG 14:47: daily. of capsule 24 Medicin e Fluticasone Yes by Nasal [facility] Propionate 4-28 route. [place] (FLONASE 14:47: of ALLERGY 24 Medicin RELIEF NA) e pioglitazon Yes 15mg Take 15 mg [facility] e (ACTOS) 4-28 by mouth Colleg e 15 MG 14:47: daily. of tablet 24 Medicin e Acetaminoph Yes 650mg Take 650 [facility] en 4-28 mg by [place] (TYLENOL) 14:47: mouth of 325 MG CAPS 24 daily. Medici n e predniSONE Yes 5mg Take 1 [facility] (DELTASONE) 4-28 Tablet by [facility] lege 5 MG tablet 00:00: mouth of 00 daily. Medicin e baclofen 10 Yes 10mg Take 10 mg Univers mg tablet 4-28 by mouth 3 ity of 00:00: (three) [place] 00 times Medical daily. Branch baclofen 10 2021-0 Yes 10mg Take 10 mg Univers mg [...] 10mg Take 10 mg Univers mg tablet 08-01 by mouth 3 ity of 00:00: (three) [place] 00 times Medical daily. Branch predniSONE 2021- No 5mg Take 1 [facility] (DELTASONE) 08-01-05 Tablet by Co llege 5 MG tablet 00:00: 00:00 mouth of 00 :00 daily. Medicin e amoxicillin Yes 500mg Take 500 [facility] (AMOXIL) 4-26 mg by [place] 500 mg 00:00: mouth 3 of capsule 00 times Medicin daily. e acetaminoph Yes 300mg Take 300 [facility] en-codeine 4-26 mg by [place] (TYLENOL 00:00: mouth as of #3) 300-30 00 needed. Medici n MG per e tablet acetaminoph Yes 300mg Take 300 [place] en-codeine 4-26 mg by [place] (TYLENOL 00:00: mouth as of #3) 300-30 00 needed. Medici n MG per e tablet amoxicillin 2021- No 500mg Take 500 [facility] (AMOXIL) 4- 01-05 mg by [place] 500 mg 00:00: 00:00 mouth 3 of capsule 00 :00 times Medicin daily. e pioglitazon Yes 15mg Take 15 mg Univers e 15 mg 4-23 by mouth ity of tablet 00:00: daily. [address] pioglitazon Yes 15mg Take 15 mg Univers e 15 mg 4-23 by mouth ity of tablet 00:00: daily. [address] pioglitazon Yes 15mg Take 15 mg Univers e 15 mg 4-23 by mouth ity of tablet 00:00: daily. [address] pioglitazon Yes 15mg Take 15 mg Univers e 15 mg 4-23 by mouth ity of tablet 00:00: daily. [address] pioglitazon Yes 15mg Take 15 mg Univers e 15 mg 4-23 by mouth ity of tablet 00:00: daily. [address] pioglitazon Yes 15mg Take 15 mg Univers e 15 mg 4-23 by mouth ity of tablet 00:00: daily. [facility] pioglitazon Yes 15mg Take 15 mg Univers e 15 mg 4-23 by mouth ity of tablet 00:00: daily. [place] [facility] [facility] pioglitazon Yes 15mg Take 15 mg Univers e 15 mg 4-23 by mouth ity of tablet 00:00: daily. [place] [facility] pioglitazon Yes 15mg Take 15 mg [facility] e 15 mg 4-23 by mouth ity of tablet 00:00: daily. [place] [facility] pioglitazon Yes 15mg Take 15 mg [facility] e 15 mg 4-23 by mouth ity of tablet 00:00: daily. [place] [facility] pioglitazon Yes 15mg Take 15 mg [facility] e 15 mg 4-23 by mouth ity of tablet 00:00: daily. [place] [facility] pioglitazon Yes 15mg Take 15 mg [facility] e 15 mg 4-23 by mouth ity of tablet 00:00: daily. [facility] pioglitazon Yes 15mg Take 15 mg [facility] e 15 mg 4-23 by mouth ity of tablet 00:00: daily. [place] [facility] pioglitazon Yes 15mg Take 15 mg [facility] e 15 mg 4-23 by mouth ity of tablet 00:00: daily. [place] [facility] pioglitazon Yes 15mg Take 15 mg [facility] e 15 mg 4-23 by mouth ity of tablet 00:00: daily. [address] AMLODIPINE Yes Take by [facility] donna BESYLATE OR 3-29 mouth. Colleg e 13:59: of 13 Medicin e GABAPENTIN Yes Take by [facility] donna OR 3-29 mouth. College 13:59: of 13 Medicin e carvedilol Yes [id number] 25mg Take 25 mg [facility] (COREG) 3-29 by mouth 2 Colleg e [...] daily. of capsule 13 Medicin e Fluticasone 0 Yes by [facility]al [facility] Propionate 3-29 route. [facility] (FLONASE 13:59: of ALLERGY 13 Medicin RELIEF NA) e pioglitazon Yes 15mg Take 15 mg [facility] (ACTOS) 3-29 by mouth Colleg e 15 MG 13:59: daily. of tablet 13 Medicin e Acetaminoph Yes 650mg Take 650 [facility] [place] [facility] 3-29 mg by College (TYLENOL) 13:59: mouth of 325 MG CAPS 13 daily. Medici n e AMLODIPINE Yes Take by [facility] donna BESYLATE OR 3-29 mouth. Colleg e 13:59: of 13 Medicin e GABAPENTIN Yes Take by Taylor donna OR 3-29 mouth. [facility] 13:59: of 13 Medicin e carvedilol Yes [id number] 25mg Take 25 mg [facility] (COREG) 3-29 by mouth 2 Colleg e 6.25 MG 13:59: times of tablet 13 daily Medicin (with e meals). losartan Yes 100mg Take 100 [facility] (COZAAR) 3-29 mg by [place] 100 MG 13:59: mouth of tablet 13 daily. Medicin e omeprazole Yes 1{capsu Take 1 Cap [facility] (PRILOSEC) 3-29 le} by mouth Colle ge 40 MG 13:59: daily. of capsule 13 Medicin e Fluticasone 0 Yes by [facility] Propionate 3-29 route. [facility] (FLONASE 13:59: of ALLERGY 13 Medicin RELIEF NA) e pioglitazon Yes 15mg Take 15 mg [facility] (ACTOS) 3-29 by mouth Colleg e 15 MG 13:59: daily. of tablet 13 Medicin e Acetaminoph Yes 650mg Take 650 [facility] [facility] 3-29 mg by [place] (TYLENOL) 13:59: mouth of 325 MG CAPS 13 daily. Medici n e AMLODIPINE Yes Take by [facility] don[facility] BESYLATE OR 3-25 mouth. Colleg e 15:00: of 27 Medicin e GABAPENTIN Yes Take by [facility] donna OR 3-25 mouth. College 15:00: of 27 Medicin e carvedilol Yes [id number] 25mg Take 25 mg [facility] (COREG) 3-25 by mouth 2 Colleg e 6.25 MG 15:00: times of tablet 27 daily Medicin (with e meals). losartan Yes 100mg Take 100 [facility] (COZAAR) 3-25 mg by College 100 MG 15:00: mouth of tablet 27 daily. Medicin e omeprazole Yes 1{capsu Take 1 Cap [facility] (PRILOSEC) 3-25 le} by mouth Colle ge 40 MG 15:00: daily. of capsule 27 Medicin e Fluticasone Yes by Nasal [facility] Propionate 3-25 route. [place] (FLONASE 15:00: of ALLERGY 27 Medicin RELIEF NA) e pioglitazon Yes 15mg Take 15 mg [facility] (ACTOS) 3-25 by mouth Colleg e 15 MG 15:00: daily. of tablet 27 Medicin e Acetaminoph Yes 650mg Take 650 [facility] [place] [facility] 3-25 mg by [place] (TYLENOL) 15:00: mouth of 325 MG CAPS 27 daily. Medici n e baclofen Yes [facility] (LIORESAL) 3-24 [place] 10 MG 00:00: of tablet 00 Medicin e baclofen Yes [facility] (LIORESAL) 3-24 [facility] 10 MG 00:00: of tablet 00 Medicin e baclofen 0 Yes [facility] (LIORESAL) 3-24 [place] 10 MG 00:00: of tablet 00 Medicin e baclofen Yes [facility] (LIORESAL) 3-24 [place] 10 MG 00:00: of tablet 00 Medicin [...] [facility] 0.05 % 3-13 DROP INTO [facility] ophthalmic 00:00: EACH EYE of emulsion 00 TWICE Medicin DAILY e RESTASIS Yes INSTILL 1 [facility] 0.05 % 3-13 DROP INTO [facility] ophthalmic 00:00: EACH EYE of emulsion 00 TWICE Medicin DAILY e RESTASIS Yes INSTILL 1 [facility] 0.05 % 3-13 DROP INTO [facility] ophthalmic 00:00: EACH EYE of emulsion 00 TWICE Medicin DAILY e RESTASIS Yes INSTILL 1 [facility] 0.05 % 3-13 DROP INTO [facility] ophthalmic 00:00: EACH EYE of emulsion 00 TWICE Medicin DAILY e AMLODIPINE Yes Take by [facility] don[facility] BESYLATE OR 1-11 mouth. Colleg e 16:11: of 21 Medicin e GABAPENTIN Yes Take by [facility] don[facility] OR 1-11 mouth. [facility] 16:11: of 21 Medicin e carvedilol Yes [id number] 6.25mg Take 6.25 [facility] (COREG) 1-11 mg by [place] 6.25 MG 16:11: mouth 2 of tablet 21 times Medicin daily e (with meals). losartan Yes 100mg Take 100 [facility] (COZAAR) 1-11 mg by [place] 100 MG 16:11: mouth of tablet 21 daily. Medicin e omeprazole Yes 1{capsu Take 1 Cap [facility] (PRILOSEC) 1-11 le} by mouth Colle ge 40 MG 16:11: daily. of capsule 21 Medicin e Fluticasone Yes by [facility] Propionate 1-11 route. College (FLONASE 16:11: of ALLERGY 21 Medicin RELIEF NA) e Blood 2019-04 Yes USE TO [facility] Glucose 2-26 CHECK [facility] Monitoring 00:00: BLOOD of Suppl 00 GLUCOSE 1 Medicin (ONETOUCH TO 2 TIMES e VERIO FLEX DAILY SYSTEM) w/Device KIT Blood 2019-04 Yes USE TO [facility] Glucose 2-26 CHECK [facility] Monitoring 00:00: BLOOD of Suppl 00 GLUCOSE 1 Medicin (ONETOUCH TO 2 TIMES e VERIO FLEX DAILY SYSTEM) w/Device KIT Blood 2019-04 Yes USE TO [facility] Glucose 2-26 CHECK College Monitoring 00:00: BLOOD of Suppl 00 GLUCOSE 1 Medicin (ONETOUCH TO 2 TIMES e VERIO FLEX DAILY SYSTEM) w/Device KIT Blood 2019-04 Yes USE TO [facility] Glucose 2-26 CHECK [facility] Monitoring 00:00: BLOOD of Suppl 00 GLUCOSE [...] mouth of 00 daily. Medicin e leflunomide 2019-04- No 20mg Take 1 [facility] (ARAVA) 20 1-18 01-05 Tablet by Col lege MG tablet 00:00: 00:00 mouth of 00 :00 daily. Medicin e Indomethaci 2019-04- No Take by Gail fernandez n 20 MG 1-16 11-16 mouth. College CAPS 16:53: 00:00 of 29 :00 Medicin e AMLODIPINE 2019-04 Yes Take by [facility] donna BESYLATE OR 1-16 mouth. [facility] e 16:47: of 07 Medicin e GABAPENTIN 2019-04 Yes Take by [facility] donna OR 1-16 mouth. [facility] 16:47: of 07 Medicin e carvedilol 2019-04 Yes [id number] 6.25mg Take 6.25 [facility] (COREG) 1-16 mg by [place] 6.25 MG 16:47: mouth 2 of tablet 07 times Medicin daily e (with meals). losartan 2019-04 Yes 100mg Take 100 [facility] (COZAAR) 1-16 mg by [place] 100 MG 16:47: mouth of tablet 07 daily. Medicin e omeprazole 2019-04 Yes 1{capsu Take 1 Cap [facility] (PRILOSEC) 1-16 le} by mouth Colle ge 40 MG 16:47: daily. of capsule 07 Medicin e Fluticasone 2019- Yes by [facility] Propionate 1-16 route. [place] (FLONASE 16:47: of ALLERGY 07 Medicin RELIEF NA) e Indomethaci 2019-04 Yes Take by [facility] n 20 MG 1-16 mouth. [facility] 16:03: of 31 Medicin e AMLODIPINE 2019-04 Yes Take by Taylor donna BESYLATE OR 1-16 mouth. [facility] 15:43: of 13 Medicin e GABAPENTIN 2019-04 Yes Take by Taylor donna OR 1-16 mouth. [facility] 15:43: of 13 Medicin e carvedilol 2019-04 Yes [id number] 6.25mg Take 6.25 [facility] (COREG) 1-16 mg by [place] 6.25 MG 15:43: mouth 2 of tablet 13 times Medicin daily e (with meals). losartan 2019-04 Yes 100mg Take 100 [facility] (COZAAR) 1-16 mg by [place] 100 MG 15:43: mouth of tablet 13 daily. Medicin e omeprazole 2019- Yes 1{capsu Take 1 Cap [facility] (PRILOSEC) 1-16 le} by mouth Colle ge 40 MG 15:43: daily. of capsule 13 Medicin e Fluticasone 2020-1 Yes by [facility] Propionate 1-16 route. [facility] (FLONASE 15:43: of ALLERGY 13 Medicin RELIEF NA) e AMLODIPINE 2020-1 Yes Take by [facility] donna BESYLATE OR 0-05 mouth. Colleg e 13:48: of 25 Medicin e GABAPENTIN 2019-04 Yes Take by Taylor donna OR 0-05 mouth. [facility] 13:48: of 25 Medicin e carvedilol 2019-04 Yes [id number] 6.25mg Take 6.25 [facility] (COREG) 0-05 mg by [place] 6.25 MG 13:48: mouth 2 of tablet 25 times Medicin daily e (with meals). losartan 2019-04 Yes 100mg Take 100 [facility] (COZAAR) 0-05 mg by [place] 100 MG 13:48: mouth of tablet 25 daily. Medicin e omeprazole 2019-04 Yes 1{capsu Take 1 Cap [facility] (PRILOSEC) 0-05 le} by mouth Colle ge 40 MG 13:48: daily. of capsule 25 Medicin e Fluticasone 2019-04 Yes by [facility] Propionate 0-05 route. [place] (FLONASE 13:48: of ALLERGY 25 Medicin RELIEF NA) e ARNUITY 2019-0 Yes INHALE 1 [facility] ELLIPTA 200 9-28 PUFF BY Colle ge [...] HOURS e ARNUITY 2020-0 Yes INHALE 1 [facility] ELLIPTA 200 9-28 PUFF BY Colle ge [...] EVERY 24 Medicin HOURS e ARNUITY 2020-0 2021- No INHALE 1 [facility] ELLIPTA 200 01-01 01-05 PUFF BY [facility] MCG/ACT 00:00: 00:00 MOUTH of AEPB 00 :00 EVERY 24 Medicin HOURS e simvastatin 2019-0 2020- No [id number] 20mg Take 20 mg [facility] (ZOCOR) 20 12-18 by mouth [facility] MG tablet 14:17: 00:00 every of 57 :00 evening. Medicin e Hydroxychlo 2019- No Take by Gail fernandez roquine 12-18 mouth. College Sulfate 14:17: 00:00 of (PLAQUENIL 33 :00 Medicin OR) e losartan-hy 2019-0 2020- No [id number] 1{tbl} Take 1 Tab [facility] drochloroth 12-18 by mouth Col lege iazide 14:17: 00:00 daily. of (HYZAAR) 18 :00 Medicin 100-25 MG e per tablet Fluticasone 2019-0 Yes by [facility] Propionate 12-18 route. [facility] (FLONASE 14:07: of ALLERGY 28 Medicin RELIEF NA) e AMLODIPINE 0 Yes Take by [facility] donna BESYLATE OR -14 mouth. Colleg e 14:06: of 10 Medicin e GABAPENTIN 2019-0 Yes Take by Taylor donna OR -14 mouth. [facility] 14:06: of 10 Medicin e losartan 2019-0 Yes 100mg Take 100 [facility] (COZAAR) 9-14 mg by [place] 100 MG 14:06: mouth of tablet 10 daily. Medicin e omeprazole 2019-0 Yes 1{capsu Take 1 Cap [facility] (PRILOSEC) 12-18 le} by mouth Colle ge 40 MG 14:06: daily. of capsule 10 Medicin e carvedilol 2019-0 Yes [id number] 6.25mg Take 6.25 [facility] (COREG) 9-14 mg by [place] 6.25 MG 14:03: mouth 2 of tablet 32 times Medicin daily e (with meals). pioglitazon 2019- No 15mg Take 15 mg [facility] e (ACTOS) 12-14 by mouth Colle ge 15 MG 00:00: 00:00 daily. of tablet 00 :00 Medicin e dicyclomine 2020-0 Yes 20mg Take 20 mg [facility] (BENTYL) 20 9-02 by mouth [facility] MG tablet 00:00: daily. of 00 Medicin e dicyclomine 2020-0 Yes 20mg Take 20 mg [facility] (BENTYL) 20 9-02 by mouth [facility] MG tablet 00:00: daily. of 00 Medicin e dicyclomine 2020-0 Yes 20mg Take 20 mg [facility] (BENTYL) 20 9-02 by mouth [facility] MG tablet 00:00: daily. of 00 Medicin e dicyclomine 2020-0 Yes 20mg Take 20 mg [facility] (BENTYL) 20 9- by mouth [facility] MG tablet 00:00: daily. of 00 Medicin e dicyclomine 2020-0 Yes 20mg Take 20 mg [facility] (BENTYL) 20 9-02 by mouth [facility] MG tablet 00:00: daily. of 00 Medicin e dicyclomine 2020-0 Yes 20mg Take 20 mg [facility] (BENTYL) 20 9- by mouth [facility] MG tablet 00:00: daily. of 00 Medicin e dicyclomine 2020-0 Yes 20mg Take 20 mg [facility] (BENTYL) 20 9- by mouth [facility] MG tablet 00:00: daily. of 00 Medicin e dicyclomine 2020-0 2022- No 20mg Take 20 mg [facility] (BENTYL) 20 9-02 01-05 by mouth Col lege MG tablet 00:00: 00:00 daily. of 00 :00 Medicin e pioglitazon 2020-0 Yes 30mg Take 30 mg [facility] e (ACTOS) 8-19 by mouth Colleg e 30 MG 00:00: daily. of tablet 00 Medicin e pioglitazon 2020-0 Yes 30mg Take 30 mg [facility] e (ACTOS) 8-19 by mouth Colleg e 30 MG 00:00: daily. of tablet 00 Medicin e pioglitazon 2020-0 Yes 30mg Take 30 mg [facility] e (ACTOS) 8-19 by mouth Colleg e 30 MG 00:00: daily. of tablet 00 Medicin e pioglitazon 2020-0 Yes 30mg Take 30 mg [facility] e (ACTOS) 8-19 by mouth Colleg e 30 MG 00:00: daily. of tablet 00 Medicin e pioglitazon 2019-0 2020- No 30mg Take 30 mg [facility] (ACTOS) 11-22 by mouth Colle ge 30 MG 00:00: 00:00 daily. of tablet 00 :00 Medicin e albuterol 2019-0 Yes INHALE 2 [facility] 108 (90 [...] 300 [facility] (NEURONTIN) 7-27 mg by [facility] 300 MG 00:00: mouth of capsule 00 daily. Medicin e gabapentin 2020-0 Yes 300mg Take 300 [facility] (NEURONTIN) 7-27 mg by [place] 300 MG 00:00: mouth of capsule 00 daily. Medicin e gabapentin 2020-0 Yes 300mg Take 300 [facility] (NEURONTIN) 7-27 mg by [place] 300 MG 00:00: mouth of capsule 00 daily. Medicin e gabapentin 2020-0 Yes 300mg Take 300 [facility] (NEURONTIN) 7-27 mg by [place] 300 MG 00:00: mouth of capsule 00 daily. Medicin e gabapentin 2020-0 Yes 300mg Take 300 [facility] (NEURONTIN) 7-27 mg by [place] 300 MG 00:00: mouth of capsule 00 daily. Medicin e gabapentin 2020-0 Yes 300mg Take 300 [facility] (NEURONTIN) 7-27 mg by [place] 300 MG 00:00: mouth of capsule 00 daily. Medicin e gabapentin 2020-0 Yes 300mg Take 300 [facility] (NEURONTIN) 7-27 mg by [facility] 300 MG 00:00: mouth of capsule 00 daily. Medicin e gabapentin 2020-0 Yes 300mg Take 300 [facility] (NEURONTIN) 7-27 mg by [facility] 300 MG 00:00: mouth of capsule 00 daily. Medicin e gabapentin 2020-0 Yes 300mg Take 300 [facility] (NEURONTIN) 7-27 mg by [place] 300 MG 00:00: mouth of capsule 00 daily. Medicin e gabapentin 2020-0 Yes 300mg Take 300 [facility] (NEURONTIN) 7-27 mg by [place] 300 MG 00:00: mouth of capsule 00 [...] 00 days. Medicin e alprazolam 2017-0 Yes [facility] (XANAX) 0.5 1-27 College MG tablet 00:00: of 00 Medicin e alprazolam 2016-0 Yes [facility] (XANAX) 0.5 1-27 College MG tablet 00:00: of 00 Medicin e alprazolam 2017-0 Yes [facility] (XANAX) 0.5 1-27 College MG tablet 00:00: of 00 Medicin e alprazolam 2017-0 2020- No [facility] (XANAX) 0.5 1-27 11-16 College MG tablet 00:00: 00:00 of 00 :00 Medicin e hydrochloro 2017-0 2020- No [facility] thiazide 1-25 09-14 College 12.5 MG 00:00: 00:00 of TABS 00 :00 Medicin e amlodipine 0 Yes [facility] (NORVASC) 1-20 College 10 MG 00:00: of tablet 00 Medicin e amlodipine 0 Yes [facility] (NORVASC) 1-20 College 10 MG 00:00: of tablet 00 Medicin e amlodipine 2017-0 Yes [facility] (NORVASC) 1-20 College 10 MG 00:00: of tablet 00 Medicin e amlodipine 2017-0 Yes 10mg Take 10 mg [facility] (NORVASC) 1-20 by mouth Colleg e 10 MG 00:00: daily. of tablet 00 Medicin e amlodipine 2017-0 Yes [facility] (NORVASC) 1-20 College 10 MG 00:00: of tablet 00 Medicin e amlodipine 2017-0 [...] tablet 00 Medicin e amlodipine 2017-0 Yes [facility] (NORVASC) 1-20 College 10 MG 00:00: of [...] tablet 00 Medicin e donepezil 2017-0 Yes [facility] (ARICEPT) 1-10 College 10 MG 00:00: of tablet 00 Medicin e donepezil Yes [facility] (ARICEPT) 1-10 College 10 MG 00:00: of tablet 00 Medicin e donepezil Yes [facility] (ARICEPT) 1-10 College 10 MG 00:00: of tablet 00 Medicin e donepezil Yes [facility] (ARICEPT) 1-10 College 10 MG 00:00: of tablet 00 Medicin e donepezil 2021- No [facility] (ARICEPT) 1-10 -05 College 10 MG 00:00: 00:00 of tablet 00 :00 Medicin e sertraline 2019- No [facility] (ZOLOFT) 50 04-1514 College MG tablet 00:00: 00:00 of 00 :00 Medicin e phenazopyri Yes 200mg Take 1 Tab [facility] dine 5-17 by mouth 3 College (PYRIDIUM) 00:00: times of 200 MG 00 daily. Medicin tablet e phenazopyri Yes 200mg Take 1 Tab [facility] dine 5-17 by mouth 3 College (PYRIDIUM) 00:00: times of 200 MG 00 daily. Medicin tablet e phenazopyri Yes 200mg Take 1 Tab [facility] dine 5-17 by mouth 3 College (PYRIDIUM) 00:00: times of 200 MG 00 daily. Medicin tablet e phenazopyri Yes 200mg Take 1 Tab [facility] dine 5-17 by mouth 3 College (PYRIDIUM) 00:00: times of 200 MG 00 daily. Medicin tablet e phenazopyri Yes 200mg Take 1 Tab [facility] dine 5-17 by mouth 3 College (PYRIDIUM) 00:00: times of 200 MG 00 daily. Medicin tablet e phenazopyri 2015-2020- No 200mg Take 1 Tab [facility] dine 5-17 03-25 by mouth 3 College (PYRIDIUM) 00:00: 00:00 times of 200 MG 00 :00 daily. Medicin tablet e tramadol 2020- No [id number] 50mg Take 1 Tab [facility] (ULTRAM) 50 -07 13-14 by mouth Col lege MG tablet 00:00: 00:00 every 8 of 00 :00 hours as Medicin needed for e Pain. glipiZIDE 2014-04- No [facility] (GLUCOTROL) 212-18 College 5 MG tablet 00:00: 00:00 of 00 [...] al 24 hr Branch tablet divalproex 2014-04 500mg Take 500 U nivers ER 0-21 [...] 00:00: mouth [place] 200 mg 00 daily. [facility] SERTraline 2014-04 Yes 50mg Take 50 mg [facility] (ZOLOFT) 50 0-13 by mouth ity of mg tablet 00:00: daily. [place] [facility] SERTraline 2014-04 Yes 50mg Take 50 mg [facility] (ZOLOFT) 50 0-13 by mouth ity of mg tablet 00:00: daily. [place] [facility] SERTraline 2014-04 Yes 50mg Take 50 mg [facility] (ZOLOFT) 50 0-13 by mouth ity of mg tablet 00:00: daily. [place] [facility] SERTraline 2014-04 Yes 50mg Take 50 mg [facility] (ZOLOFT) 50 0-13 by mouth ity of mg tablet 00:00: daily. [place] [facility] SERTraline 2014-04 Yes 50mg Take 50 mg U [facility] (ZOLOFT) 50 0-13 by mouth ity of mg tablet 00:00: daily. [place] [facility] SERTraline 2014-04 Yes 50mg Take 50 mg [facility] (ZOLOFT) 50 0-13 by mouth ity of mg tablet 00:00: daily. [place] [facility] SERTraline 2014-04- No 50mg Take 50 mg [facility] (ZOLOFT) 50 0-13 -23 by mouth ity of mg tablet 00:00: 00:00 daily. [place] 00 :00 [facility] Branch SERTraline 2014-04- No 50mg Take 50 mg Univers (ZOLOFT) 50 0-13 10-26 by mouth ity of mg tablet 00:00: 00:00 daily. 00 :00 Medical Branch amLODIPine 2014-04 Yes 10mg Take [...] mg 00:00: daily. [place] tablet Medical Branch amLODIPine 2014-04 Yes 10mg Take [...] mg 00:00: daily. [place] tablet Medical Branch amLODIPine 2014-04 Yes 10mg Take [...] mouth ity of 10 mg 00:00: daily. [place] tablet Medical Branch potassium Yes 10meq Take [...] ity o f mg tablet 00:00: daily. [place] [facility] potassium Yes 10meq Take 10 [...] ity o f mg tablet 00:00: daily. Medical Branch potassium Yes 10meq Take 10 [...] CR 00 daily. Medical tablet Branch furosemide Yes 20mg Take 20 mg U nivers (LASIX) 20 9-08 by mouth ity o f mg tablet 00:00: daily. Medical Branch potassium Yes 10meq Take 10 Univ ers chloride 9-08 mEq by ity of (K-DUR) 10 00:00: mouth [place] mEq CR 00 daily. Medical tablet Branch simvastatin Yes 40mg Take 40 mg [facility] (ZOCOR) 40 -08 by mouth ity o f mg tablet 00:00: daily. .5 [place] as 00 qd Medical Branch furosemide Yes 20mg Take 20 mg U nivers (LASIX) 20 9-08 by mouth ity o f mg tablet 00:00: daily. 00 Medical Branch furosemide 2020- No 20mg Take 20 mg [facility] (LASIX) 20 12-1223 by mouth ity of mg tablet 00:00: [...] 00:00: 00:00 daily. [place] 00 :00 Medical [place] simvastatin 2020- No 40mg Take 40 mg [...] area(s) as [place] 2.5-2.5 % 00 needed. [facility] Branch lidocaine-p Yes 2.5{spr Apply 2.5 Univers [...] 2020- No 2.5{spr Apply 2.5 Univers rilocaine 9-02 07-23 ay} Sprays to ity of (EMLA) 00:00: [...] ity o f 40 mg 00:00: daily. [place] capsule Medical Branch fluticasone Yes 50{spra Use [...] 00:00: daily. [place] capsule Medical Branch fluticasone 0 Yes 50{spra Use 50 U nivers 50 8-28 y} Sprays in ity of mcg/actuati 00:00: each [place] on nasal 00 nostril Medical spray daily. 2 Branch puffs once daily glipiZIDE Yes 5mg Take 5 mg [facility] vers (GLUCOTROL) 8-28 by mouth 2 it y of 5 mg tablet 00:00: (two) [place] 00 times Medical daily. Branch omeprazole Yes 40mg Take 40 mg U nivers (PRILOSEC) 8-28 by mouth ity o f 40 mg 00:00: daily. [facility] Medical Branch fluticasone Yes 50{spra Use 50 U nivers 50 8-28 y} Sprays in ity of mcg/actuati 00:00: each [place] on nasal 00 nostril Medical spray daily. 2 Branch puffs once daily glipiZIDE Yes 5mg Take 5 mg [facility] vers (GLUCOTROL) 8-28 by mouth 2 it y of 5 mg tablet 00:00: (two) [place] 00 times Medical daily. Branch omeprazole Yes 40mg Take 40 mg U nivers (PRILOSEC) 8-28 by mouth ity o f 40 mg 00:00: daily. [facility] Medical Branch fluticasone Yes 50{spra Use 50 U nivers 50 8-28 y} Sprays in ity of mcg/actuati 00:00: each [place] on nasal 00 nostril Medical spray daily. 2 Branch puffs once daily glipiZIDE Yes 5mg Take 5 mg [facility] vers (GLUCOTROL) 8-28 by mouth 2 it y of 5 mg tablet 00:00: (two) [place] 00 times Medical daily. Branch omeprazole Yes 40mg Take 40 mg [facility] (PRILOSEC) 8-28 by mouth ity o f 40 mg 00:00: daily. [facility] Medical Branch fluticasone 0 Yes 50{spra Use 50 U nivers 50 8-28 y} Sprays in ity of mcg/actuati 00:00: each [place] on nasal 00 nostril Medical spray daily. 2 Branch puffs once daily glipiZIDE 0 Yes 5mg Take 5 mg [facility] vers (GLUCOTROL) 8-28 by mouth 2 it y of 5 mg tablet 00:00: (two) [place] 00 times Medical daily. Branch omeprazole Yes 40mg Take 40 mg U [facility] (PRILOSEC) 8-28 by mouth ity o f 40 mg 00:00: daily. [facility] Medical Branch fluticasone Yes 50{spra Use 50 U nivers 50 8-28 y} Sprays in ity of mcg/actuati 00:00: each [place] on nasal 00 nostril Medical spray daily. 2 Branch puffs once daily omeprazole Yes 40mg Take 40 mg U [facility]ivers (PRILOSEC) 8-28 by mouth ity o f 40 mg 00:00: daily. [facility] Medical Branch fluticasone Yes 50{spra Use 50 U nivers 50 8-28 y} Sprays in ity of mcg/actuati 00:00: each [place] on nasal 00 nostril Medical spray daily. 2 Branch puffs once daily omeprazole Yes 40mg Take 40 mg U nivers (PRILOSEC) 8-28 by mouth ity o f 40 mg 00:00: daily. [facility] Branch fluticasone Yes 50{spra Use 50 U nivers 50 8-28 y} Sprays in ity of mcg/actuati 00:00: each [place] on nasal 00 nostril Medical spray daily. 2 Branch puffs once daily omeprazole Yes 40mg Take 40 mg U [facility] (PRILOSEC) 8-28 by mouth ity o f 40 mg 00:00: daily. [facility] Medical Branch fluticasone Yes 50{spra Use 50 U nivers 50 8-28 y} Sprays in ity of mcg/actuati 00:00: each [place] on nasal 00 nostril Medical spray daily. 2 Branch puffs once daily fluticasone 0 Yes 50{spra Use 50 U nivers 50 8-28 y} Sprays in ity of mcg/actuati 00:00: each [place] on nasal 00 nostril Medical spray daily. 2 Branch puffs once daily omeprazole Yes 40mg Take 40 mg U [facility] (PRILOSEC) 8-28 by mouth ity o f 40 mg 00:00: daily. [facility] Medical Branch omeprazole Yes 40mg Take 40 mg U nivers (PRILOSEC) 8-28 by mouth ity o f 40 mg 00:00: daily. [facility] Medical Branch fluticasone Yes 50{spra Use 50 U nivers 50 8-28 y} Sprays in ity of mcg/actuati 00:00: each [place] on nasal 00 nostril Medical spray daily. 2 Branch puffs once daily omeprazole Yes 40mg Take 40 mg U [facility]ivers (PRILOSEC) 8-28 by mouth ity o f 40 mg 00:00: daily. [facility] Medical Branch fluticasone Yes 50{spra Use 50 U nivers 50 8-28 y} Sprays in ity of mcg/actuati 00:00: each [place] on nasal 00 nostril Medical spray daily. 2 Branch puffs once daily omeprazole Yes 40mg Take 40 mg U [facility]ivers (PRILOSEC) 8-28 by mouth ity o f 40 mg 00:00: daily. [facility] Medical Branch fluticasone Yes 50{spra Use 50 U nivers 50 8-28 y} Sprays in ity of mcg/actuati 00:00: each [place] on nasal 00 nostril Medical spray daily. 2 Branch puffs once daily omeprazole 0 Yes 40mg Take 40 mg U nivers (PRILOSEC) 8-28 by mouth ity o f 40 mg 00:00: daily. [facility] Medical Branch fluticasone Yes 50{spra Use 50 U nivers 50 8-28 y} Sprays in ity of mcg/actuati 00:00: each [place] on nasal 00 nostril Medical spray daily. 2 Branch puffs once daily omeprazole Yes 40mg Take 40 mg U nivers (PRILOSEC) 8-28 by mouth ity o f 40 mg 00:00: daily. [facility] Medical Branch fluticasone Yes 50{spra Use 50 U nivers 50 8-28 y} Sprays in ity of mcg/actuati 00:00: each [place] on nasal 00 nostril Medical spray daily. 2 Branch puffs once daily omeprazole Yes 40mg Take 40 mg U nivers (PRILOSEC) 12-01 by mouth ity o f 40 mg 00:00: daily. [place] [facility] glipiZIDE 2020- No 5mg Take 5 mg Un julio (GLUCOTROL) 12-01 by mouth 2 i ty of 5 mg tablet 00:00[place]00 [place] [facility] daily. [facility] glipiZIDE 2020- No 5mg Take 5 mg [facility] (GLUCOTROL) 12-01 by mouth 2 i ty of 5 mg tablet 00:00[place] daily. [facility] ACCU-CHEK 2015-0 Yes daily. Univer s [...] [place] tablet 00 daily. [facility] losartan 0 Yes 100mg Take 100 Univ ers (COZAAR) 8-08 mg by ity of 100 mg 00:00: mouth [place] tablet 00 daily. [facility] losartan 0 Yes 100mg Take 100 Univ ers (COZAAR) [...] 40 MG TABS 1-14 l 11:19: AMLODIPINE 0 No 1 po qd Devonte bennie BESYLATE 10 1-14 l MG TABS 11:19: LASIX TABS 2013-0 Yes per other Me moria 1-14 M.D. l 00:00: GABAPENTIN 2013-0 Yes per other Me moria TABS 1-14 M.D. l 00:00: HYDROXYCHLO 2013-0 Yes 1 tb po qd [facility] ROQUINE 1-14 l SULFATE 200 00:00: Alex n MG TABS 00 SIMVASTATIN 2011-04 No 1 po qd Mem oria 40 MG TABS 1-27 l 10:42: AMLODIPINE 2011-04 No 1 po qd Devonte bennie BESYLATE 10 1-27 l MG TABS 10:42: SIMVASTATIN 0 No 1 po qd Mem oria 40 [...] oria TABS 1-11 M.D. l 00:00: METFORMIN 2011-1 No 1 po qd Memor ia HCL [...] 0 No 1 tab once Me moria [id number] UNIT 3-09 a week for l CAPS 00:00: two weeks [place] 00 VITAMIN D 2010-0 No 1 tab once Me moria [id number] UNIT 3-09 a week for l CAPS 00:00: two weeks [place] 00 Immunizations Ordered Immunization Filled Immunization Date Status Commen ts Source Name Name [employer] 2020-06-22 Completed [employer] SARS-CoV-2 00:00:00 of Medicine Vaccination [email or web address] 2020-06-22 Completed [employer] SARS-CoV-2 00:00:00 of Medicine Vaccination [email or web address] 2020-06-22 Completed [facility] SARS-CoV-2 00:00:00 of Medicine Vaccination [employer] 2020-06-22 Completed [employer] SARS-CoV-2 00:00:00 of Medicine Vaccination [employer] 2020-06-22 Completed [facility] SARS-CoV-2 00:00:00 of Medicine Vaccination Influenza Hd 2020-02-22 Completed [employer] 00:00:00 of Medicine Influenza Hd 2020-02-22 Completed [employer] 00:00:00 of Medicine Influenza Hd 2020-02-22 Completed [facility] 00:00:00 of Medicine Influenza Hd 2020-02-22 Completed [facility] 00:00:00 of Medicine Influenza Hd 2020-02-22 Completed [employer] 00:00:00 of Medicine Pneumococcal 2019-10-12 Completed [facility] Polysaccharide 00:00:00 of Medicin e Pneumococcal 2019-10-12 Completed [facility] Polysaccharide 00:00:00 of Medicin e Pneumococcal 2019-10-12 Completed [facility] Polysaccharide 00:00:00 of Medicin e Pneumococcal 2019-10-12 Completed [facility] Polysaccharide 00:00:00 of Medicin e Pneumococcal 2019-10-12 Completed [employer] Polysaccharide 00:00:00 of Medicin e Pneumococcal 2019-10-12 Completed [facility] Polysaccharide 00:00:00 of Medicin e Pneumococcal 2019-10-12 Completed [facility] Polysaccharide 00:00:00 of Medicin e Pneumococcal 2019-10-12 Completed [employer] Polysaccharide 00:00:00 of Medicin e Influenza Hd 2019-04-05 Completed [facility] 00:00:00 of Medicine Influenza Hd 2019-04-05 Completed [employer] 00:00:00 of Medicine Influenza Hd 2019-04-05 Completed [facility] 00:00:00 of Medicine Influenza Hd 2019-04-05 Completed [employer] 00:00:00 of Medicine Influenza Hd 2019-04-05 Completed [employer] 00:00:00 of Medicine Influenza Hd 2019-04-05 Completed [employer] 00:00:00 of Medicine Influenza Hd 2019-04-05 Completed [facility]le ge 00:00:00 of Medicine Influenza Hd 2019-04-05 Completed [facility] Colle ge 00:00:00 of Medicine polio vaccine #4 2011-08-29 Completed [facility] 16:08:45 [place] polio vaccine #4 2011-02-14 Completed [facility] 20:47:19 [facility] Vital Signs Vital Name Observation Time Observation Value Comments Source Systolic blood 2021-04-10 15:35:00 141 mm[Hg] [facility] Medicine Diastolic blood 2021-04-10 15:35:00 81 mm[Hg] [facility] Medicine Heart rate 2021-04-10 15:35:00 70 /min [facility] Body height 2021-04-10 15:35:00 175.3 cm [facility] Body weight 2021-04-10 15:35:00 102.059 kg [facility] BMI 2021-04-10 15:35:00 33.23 kg/m2 [facility] Systolic blood 2021-01-26 20:01:00 158 mm[Hg] Univer sity of pressure [facility] Diastolic blood 2021-01-26 20:01:00 74 mm[Hg] Unive rsity of pressure [facility] Heart rate 2021-01-26 20:00:00 93 /min [facility] Body temperature 2021-01-26 20:00:00 36.83 Annel Univ ersity [facility] Respiratory rate 2021-01-26 20:00:00 20 /min [facility] height 2021-01-26 20:00:00 175.3 cm [facility] Body weight 2021-01-26 20:00:00 101.833 kg [facility] BMI 2021-01-26 20:00:00 33.15 kg/m2 [facility] [place] [facility] Oxygen saturation in 2021-01-26 20:00:00 96 /min [facility] of Arterial blood by [facility] Pulse oximetry Branch Systolic blood 2020-12-11 07:49:02 161 mm[Hg] Univer sity of pressure [place] [facility] Diastolic blood 2020-12-11 07:49:02 70 mm[Hg] Unive rsity of pressure [place] [facility] Heart rate 2020-12-11 07:49:02 86 /min [facility] [place] [facility] Body temperature 2020-12-11 07:49:02 38.17 Annel [facility] [place] [facility] Respiratory rate 2020-12-11 07:49:02 19 /min [facility] [place] [facility] Oxygen saturation in 2020-12-11 07:49:02 96 /min [facility] Arterial blood by [facility] Pulse oximetry Branch Body height 2020-12-11 06:05:00 176.5 cm [facility] [place] [facility] Body weight 2020-12-11 06:05:00 102.967 kg [facility] [place] [facility] BMI 2020-12-11 06:05:00 33.04 kg/m2 [facility] [place] [facility] Systolic blood 2020-10-26 22:04:00 178 mm[Hg] Univer sity of pressure [place] [facility] Diastolic blood 2020-10-26 22:04:00 90 mm[Hg] Unive rsity of pressure [place] [facility] Heart rate 2020-10-26 21:41:00 78 /min [facility] [place] [facility] Respiratory rate 2020-10-26 21:33:00 21 /min [facility] [place] [facility] Body height 2020-10-26 21:33:00 175.3 cm [facility] [place] [facility] Body weight 2020-10-26 21:33:00 103.602 kg [facility] [place] [facility] BMI 2020-10-26 21:33:00 33.73 kg/m2 [facility] [place] [facility] Oxygen saturation in 2020-10-26 21:33:00 97 /min [facility] Arterial blood by [facility] Pulse oximetry Branch Systolic blood 2020-10-09 15:12:00 125 mm[Hg] Univer sity of pressure [facility] Diastolic blood 2020-10-09 15:12:00 73 mm[Hg] Unive rsity of pressure [facility] Heart rate 2020-10-09 15:12:00 65 /min Universi ty [facility] Body height 2020-10-09 15:12:00 175.3 cm Universi ty [facility] Body weight 2020-10-09 15:12:00 102.967 kg Universi ty [facility] BMI 2020-10-09 15:12:00 33.52 kg/m2 Universi ty [facility] Systolic blood 2020-08-01 14:45:00 154 mm[Hg] [facility] Medicine Diastolic blood 2020-08-01 14:45:00 80 mm[Hg] [facility] Medicine Heart rate 2020-08-01 14:45:00 73 [facility]min [facility] Body temperature 2020-08-01 14:45:00 36.39 Annel [facility] Body weight 2020-08-01 14:45:00 102.513 [facility] BMI 2020-08-01 14:45:00 33.37 [facility]m2 [facility] Oxygen saturation in 2020-08-01 14:45:00 96 /min [facility] of Arterial blood by Medicine Pulse oximetry Systolic blood 2020-08-01 14:45:00 154 mm[Hg] [facility] Medicine Diastolic blood 2020-08-01 14:45:00 80 mm[Hg] [facility] Medicine Heart rate 2020-08-01 14:45:00 73 /min [facility] ol[facility] of Medicine Body temperature 2020-08-01 14:45:00 36.39 Annel [facility] Body weight 2020-08-01 14:45:00 102.513 [facility] BMI 2020-08-01 14:45:00 33.37 kg/m2 [facility] Oxygen saturation in 2020-08-01 14:45:00 96 /min [place] [facility] of Arterial blood by Medicine Pulse oximetry Systolic blood 2020-07-02 13:56:00 150 mm[Hg] [facility] Medicine Diastolic blood 2020-07-02 13:56:00 80 mm[Hg] [facility] Medicine Heart rate 2020-07-02 13:56:00 75 /min [facility] of Medicine Respiratory rate 2020-07-02 13:56:00 16 /min [facility] Body height 2020-07-02 13:56:00 175.3 cm [facility] of Medicine Body weight 2020-07-02 13:56:00 103.874 kg [facility] of Medicine BMI 2020-07-02 13:56:00 33.82 kg/m2 [facility] of Medicine Systolic blood 2020-07-02 13:56:00 150 mm[Hg] [facility] Medicine Diastolic blood 2020-07-02 13:56:00 80 mm[Hg] [facility] Medicine Heart rate 2020-07-02 13:56:00 75 /min [facility] ollege of Medicine Respiratory rate 2020-07-02 13:56:00 16 /min [facility] Body height 2020-07-02 13:56:00 175.3 cm [facility] Medicine Body weight 2020-07-02 13:56:00 103.874 kg [facility] of Medicine BMI 2020-07-02 13:56:00 33.82 kg/m2 [facility] of Medicine Body height 2020-06-28 14:59:00 175.3 cm [facility] Medicine Body weight 2020-06-28 14:59:00 104.327 kg [facility] of Medicine BMI 2020-06-28 14:59:00 33.97 kg/m2 [facility] Medicine Body height 2020-06-28 14:59:00 175.3 cm [facility] Medicine Body weight 2020-06-28 14:59:00 104.327 kg [facility] Medicine BMI 2020-06-28 14:59:00 33.97 kg/m2 [facility] of Medicine Systolic blood 2020-04-16 16:05:00 143 mm[Hg] [employer] of pressure Medicine Diastolic blood 2020-04-16 16:05:00 80 mm[Hg] [facility] pressure Medicine Heart rate 2020-04-16 16:05:00 72 /min [facility] ol[facility] of [facility] Body temperature 2020-04-16 16:05:00 36.78 Annel [facility] Respiratory rate 2020-04-16 16:05:00 16 /min [facility] Body height 2020-04-16 16:05:00 175.3 cm [facility] Body weight 2020-04-16 16:05:00 106.595 [facility] BMI 2020-04-16 16:05:00 34.70 kg/m2 [facility] Systolic blood 2020-04-16 16:05:00 143 mm[Hg] [facility] pressure Medicine Diastolic blood 2020-04-16 16:05:00 80 mm[Hg] [facility] Medicine Heart rate 2020-04-16 16:05:00 72 /min [facility] ollege of [facility] Body temperature 2020-04-16 16:05:00 36.78 Annel [facility] Respiratory rate 2020-04-16 16:05:00 16 /min [facility] Body height 2020-04-16 16:05:00 175.3 cm [facility] Body weight 2020-04-16 16:05:00 106.595 kg [facility] BMI 2020-04-16 16:05:00 34.70 kg/m2 [facility] Systolic blood 2020-02-20 16:43:00 156 mm[Hg] [facility] pressure Medicine Diastolic blood 2020-02-20 16:43:00 83 mm[Hg] [facility] pressure Medicine Heart rate 2020-02-20 16:43:00 74 /min [facility] Body temperature 2020-02-20 16:43:00 36.28 Annel [facility] Respiratory rate 2020-02-20 16:43:00 16 /min [facility] Body height 2020-02-20 16:43:00 175.3 cm [facility] Body weight 2020-02-20 16:43:00 113.218 [facility] BMI 2020-02-20 16:43:00 36.86 kg/m2 [facility] Systolic blood 2020-02-20 16:43:00 156 mm[Hg] [facility] pressure Medicine Diastolic blood 2020-02-20 16:43:00 83 mm[Hg] [facility] pressure Medicine Heart rate 2020-02-20 16:43:00 74 /min [facility] Body temperature 2020-02-20 16:43:00 36.28 Annel [facility] Respiratory rate 2020-02-20 16:43:00 16 /min [facility] Body height 2020-02-20 16:43:00 175.3 cm [facility] Body weight 2020-02-20 16:43:00 113.218 kg [facility] BMI 2020-02-20 16:43:00 36.86 kg/m2 [facility] Systolic blood 2020-02-20 15:41:00 137 mm[Hg] [facility] Medicine Diastolic blood 2020-02-20 15:41:00 79 mm[Hg] [facility] Medicine Heart rate 2020-02-20 15:41:00 72 /min [facility] Body temperature 2020-02-20 15:41:00 36.28 Annel [facility] Respiratory rate 2020-02-20 15:41:00 16 /min [facility] Body height 2020-02-20 15:41:00 175.3 cm [facility] Body weight 2020-02-20 15:41:00 113.399 kg [facility] BMI 2020-02-20 15:41:00 36.92 kg/m2 [facility] Oxygen saturation in 2020-02-20 15:41:00 99 /min [facility] Arterial blood by [facility] Pulse oximetry Systolic blood 2020-02-20 15:41:00 137 mm[Hg] [place] [facility] of pressure Medicine Diastolic blood 2020-02-20 15:41:00 79 mm[Hg] [employer] of pressure Medicine Heart rate 2020-02-20 15:41:00 72 /min [facility] ollege of Medicine Body temperature 2020-02-20 15:41:00 36.28 Annel [facility] Respiratory rate 2020-02-20 15:41:00 16 /min [facility] Body height 2020-02-20 15:41:00 175.3 cm [facility] ollege of [facility] Body weight 2020-02-20 15:41:00 113.399 kg [facility] ol[facility] of Medicine BMI 2020-02-20 15:41:00 36.92 kg/m2 [facility] ol[facility] of [facility] Oxygen saturation in 2020-02-20 15:41:00 99 /min [facility] of Arterial blood by Medicine Pulse oximetry BMI 2020-01-09 13:47:00 34.88 kg/m2 [facility] ollege of [facility] Oxygen saturation in 2020-01-09 13:47:00 99 /min [facility] of Arterial blood by Medicine Pulse oximetry Systolic blood 2020-01-09 13:47:00 145 mm[Hg] [facility] of pressure Medicine Diastolic blood 2020-01-09 13:47:00 80 mm[Hg] [facility] of pressure Medicine Heart rate 2020-01-09 13:47:00 69 /min [facility] ollege of [facility] Body temperature 2020-01-09 13:47:00 36.28 Annel [facility] Respiratory rate 2020-01-09 13:47:00 17 /min [facility] Body height 2020-01-09 13:47:00 175.3 cm [facility] ollege of [facility] Body weight 2020-01-09 13:47:00 107.14 kg [facility] ol[facility] of Medicine BMI 2020-01-09 13:47:00 34.88 kg/m2 [facility] Oxygen saturation in 2020-01-09 13:47:00 99 /min [place] [facility] of Arterial blood by Medicine Pulse oximetry Systolic blood 2020-01-09 13:47:00 145 mm[Hg] [facility] of pressure Medicine Diastolic blood 2020-01-09 13:47:00 80 mm[Hg] [facility] of pressure Medicine Heart rate 2020-01-09 13:47:00 69 /min [facility] ol[facility] of Medicine Body temperature 2020-01-09 13:47:00 36.28 Annel [facility] Respiratory rate 2020-01-09 13:47:00 17 /min [facility] Body height 2020-01-09 13:47:00 175.3 cm [facility] Medicine Body weight 2020-01-09 13:47:00 107.14 kg [facility] ol[facility] of Medicine Systolic blood 2019-12-19 13:59:00 130 mm[Hg] [facility] of pressure Medicine Diastolic blood 2019-12-19 13:59:00 73 mm[Hg] [facility] of pressure Medicine Heart rate 2019-12-19 13:59:00 71 /min [facility] ollege of [facility] Body temperature 2019-12-19 13:59:00 36.78 Annel [facility] Respiratory rate 2019-12-19 13:59:00 16 /min [facility] Body height 2019-12-19 13:59:00 175.3 cm [facility] Medicine Body weight 2019-12-19 13:59:00 108.5 kg [facility] ol[facility] of Medicine BMI 2019-12-19 13:59:00 35.32 kg/m2 [facility] of Medicine Systolic blood 2019-12-19 13:59:00 130 mm[Hg] [facility] of pressure Medicine Diastolic blood 2019-12-19 13:59:00 73 mm[Hg] [facility] of pressure Medicine Heart rate 2019-12-19 13:59:00 71 /min [facility] ol[facility] of Medicine Body temperature 2019-12-19 13:59:00 36.78 Annel [facility] Respiratory rate 2019-12-19 13:59:00 16 /min [facility] Body height 2019-12-19 13:59:00 175.3 cm [facility] Medicine Body weight 2019-12-19 13:59:00 108.5 kg [facility] ol[facility] of Medicine BMI 2019-12-19 13:59:00 35.32 kg/m2 [facility] of Medicine Height 2013-04-19 16:42:10 Jordan Gottlieb Systolic (mm Hg) 2013-04-19 16:42:10 Devonte rial [place] Diastolic (mm Hg) 2013-04-19 16:42:10 Mem orial [place] Heart Rate 2013-04-19 16:42:10 [facility] [place] Systolic (mm Hg) 2011-01-16 16:53:41 Devonte rial [place] Diastolic (mm Hg) 2011-01-16 16:53:41 Mem orial [place] Heart Rate 2011-01-16 16:53:41 [facility] [place] Systolic (mm Hg) 2010-07-11 13:20:54 Devonte rial [place] Diastolic (mm Hg) 2010-07-11 13:20:54 Mem orial [place] Heart Rate 2010-07-11 13:20:54 [facility] [place] Diastolic (mm Hg) 2009-11-28 13:10:48 Mem orial [place] Heart Rate 2009-11-28 13:10:48 [facility] Weight 2009-11-28 13:10:48 [facility] [place] Systolic (mm Hg) 2009-11-28 13:10:48 Devonte rial [place] Heart Rate 2009-06-07 16:58:43 [facility] [place] Height 2009-06-07 16:58:43 [facility] [place] Weight 2009-06-07 16:58:43 [facility] [place] Systolic (mm Hg) 2009-06-07 16:58:43 Devonte rial [place] Diastolic (mm Hg) 2009-06-07 16:58:43 Mem orial [place] Procedures Procedure Date / Time Performing Clinician Source Performed REFERRAL- 2021-02-25 06:01:00 Doctor Unassigned, No [facility] REQUEST/RESPONSE Name Medical Branch TROPONIN I 2020-12-11 06:37:00 Devi Fuentes [facility] COMP. METABOLIC PANEL 2020-12-11 06:37:00 [id number] CBC WITH DIFF 2020-12-11 06:37:00 Devi Fuentes [facility] COVID-19 (ID NOW RAPID 2020-12-11 06:35:00 Devi Fuentes [facility] TESTING) [facility] POCT HEMOGLOBIN A1C TEST 2020-10-26 21:52:00 Tian Lu [facility] CONSENT/REFUSAL FOR 2020-10-09 14:49:17 [facility] Name Medical Branch REFERRAL- 2020-09-25 05:01:00 Doctor Unassigned, No Univer [facility] REQUEST/RESPONSE Name Medical Branch genitourinary review of 2009-06-07 16:58:43 Devonte Gottlieb [facility], E&M Plan of Care Planned Activity Planned Date Details Comments Source Future Scheduled 2021-04-10 Screening for [facility] Test 09:57:21 malignant neoplasm of of Med icine colon (procedure) [code = 449007024] Future Scheduled 2021-04-10 Hemoglobin A1c [facility] Test 09:57:21 measurement of Medicine (procedure) [code = 60338192] Future Scheduled 2021-04-10 TETANUS SHOT (ADULT) [employer] Test 09:57:21 [code = TETANUS SHOT of Medi cine (ADULT)] Future Scheduled 2021-04-10 ANNUAL DIABETIC [facility] Test 09:57:21 RETINOPATHY SCREENING of Med icine [code = ANNUAL DIABETIC RETINOPATHY SCREENING] Future Scheduled 2021-04-10 ZOSTER VACCINE (1 of [employer] Test 09:57:21 2) [code = ZOSTER of Medicin e VACCINE (1 of 2)] Future Scheduled 2021-04-10 MEDICARE AWV (Initial) [employer] Test 09:57:21 [code = MEDICARE AWV of Medi cine (Initial)] Future Scheduled 2021-04-10 Screening for [facility] Test 09:57:21 osteoporosis of Medicine (procedure) [code = 234254827] Future Scheduled 2021-04-10 Screening for [employer] [facility] Test 09:57:21 malignant neoplasm of of Med icine breast (procedure) [code = 546669297] Future Scheduled 2021-04-10 COVID-19 Vaccine (2 - [employer] Test 09:57:21 Booster for Yue of Medic ine series) [code = COVID-19 Vaccine (2 - Booster for Yue series)] Future Scheduled 2021-04-10 FLU VACCINE > 6 MONTHS [employer] Test 09:57:21 [code = FLU VACCINE > of Med icine 6 MONTHS] Future Scheduled 2021-04-10 BMI FOLLOW UP PLAN [employer] Test 09:57:21 [code = BMI FOLLOW UP of Med icine PLAN] Future Scheduled 2021-04-10 Diabetic foot [facility] Test 09:57:21 examination of Medicine (regime/therapy) [code = 577900119] Future Scheduled 2021-04-10 FALL SCREEN [code = [facility] or [facility] Test 09:57:21 FALL SCREEN] of Medicine Future Scheduled 2021-04-10 PHOSPHORUS [code = Ordered: [facility] Test 09:50:47 2777-1] 04/10/2021 of Medicine Future Scheduled 2021-04-10 PTH INTACT [code = Ordered: [facility] Test 09:50:47 2731-8] 04/10/2021 of Medicine Future Scheduled 2021-04-10 URINALYSIS AUTO Ordered: [facility] Test 09:50:47 W/SCOPE [code = 04/10/2021 of Medicine 08903-1] Future Scheduled 2021-04-10 BASIC METABOLIC PANEL Ordered: [facility] Test 09:50:46 [code = 31582-5] 04/10/2021 of Medicine Future Scheduled 2021-04-10 MAGNESIUM [code = Ordered: [facility] Test 09:50:46 69492-8] 04/10/2021 of Medicine Diagnostic Test 2020-11-01 VITAMIN D 25 HYDROXY Expected: [facility] Pending 00:00:00 [code = 1989-3] 11/01/2020 of Medicine (Approximate), Expires: 01/02/2021 Diagnostic Test 2020-11-01 BASIC METABOLIC PANEL Expected: [place] [facility] Pending 00:00:00 [code = 86605-6] 11/01/2020 of Medicine (Approximate), Expires: 01/02/2021 Diagnostic Test 2020-11-01 MAGNESIUM [code = Expected: [facility] Pending 00:00:00 54326-2] 11/01/2020 of Medicine (Approximate), Expires: 01/02/2021 Diagnostic Test 2020-11-01 PHOSPHORUS [code = Expected: [facility] Pending 00:00:00 2777-1] 11/01/2020 of Medicine (Approximate), Expires: 01/02/2021 Diagnostic Test 2020-11-01 PTH INTACT [code = Expected: [facility] Pending 00:00:00 2731-8] 11/01/2020 of Medicine (Approximate), Expires: 01/02/2021 Diagnostic Test 2020-11-01 RANDOM URINE Expected: [facility] Pending 00:00:00 PROTEIN/CREATININE 11/01/2020 of Medici ne [code = 2890-2] (Approximate), Expires: 01/02/2021 Diagnostic Test 2020-11-01 URINALYSIS AUTO Expected: [facility] Pending 00:00:00 W/SCOPE [code = 11/01/2020 of Medicine 67144-9] (Approximate), Expires: 01/02/2021 Diagnostic Test 2020-08-15 CBC W/AUTO DIFF WITH Expected: [facility] or [facility] Pending 00:00:00 PLATELETS [code = 08/15/2020, of Medicin e 18376-4] Expires: 01/31/2021 Diagnostic Test 2020-08-08 MAGNESIUM [code = Expected: [facility] Pending 00:00:00 20208-9] 08/08/2020, of Medicine Expires: 01/31/2021 Future Scheduled COLON CANCER [facility]abbie [employer]ge Test SCREENING: COLONOSCOPY of Me [place] [code = COLON CANCER SCREENING: COLONOSCOPY] Future Scheduled TETANUS SHOT (ADULT) [employer] Test [code = TETANUS SHOT of Medi cine (ADULT)] Future Scheduled BMI FOLLOW UP PLAN [employer] Test [code = BMI FOLLOW UP of Med icine PLAN] Future Scheduled HEPATITIS C SCREENING [employer] Test [code = HEPATITIS C of Medic ine SCREENING] Future Scheduled ZOSTER VACCINE (1 of [employer] Test 2) [code = ZOSTER [...] Medi cine SCREENING] Future Scheduled PNEUMOVAX >=65 [facility] Test (PPSV23) [code = of Medicine PNEUMOVAX >=65 (PPSV23)] Future Scheduled FLU VACCINE > 6 MONTHS [employer] Test [code = FLU VACCINE > of Med icine 6 MONTHS] Future Scheduled MAMMOGRAM ANNUAL [code B [facility] Test = MAMMOGRAM ANNUAL] of Medic ine Future Scheduled RHEUMATOID FACTOR Ordered: [facility] Test [code = 64153-8] 02/20/2020 of Medicine Future Scheduled CCP AB (IGG/IGA) [code Ordered: B [facility] Test = 48179-1] 02/20/2020 of Medicine Future Scheduled URIC ACID [code = Ordered: [facility] Test 3084-1] 02/20/2020 of Medicine Future Scheduled C-REACTIVE PROTEIN Ordered: [facility] Test [code = 1988-5] 02/20/2020 of Medicine Future Scheduled SEDIMENTATION RATE Ordered: [facility] [place]ney Test MODIFIED WESTERGREN 02/20/2020 of Medic ine [code = 4537-7] Future Scheduled COLON CANCER [facility] [employer] Test SCREENING: COLONOSCOPY of Me dicine [code = COLON CANCER SCREENING: COLONOSCOPY] Future Scheduled TETANUS SHOT (ADULT) [employer] Test [code = TETANUS SHOT of Medi cine (ADULT)] Future Scheduled HEPATITIS C SCREENING [facility] Test [code = HEPATITIS C of Medic ine SCREENING] Future Scheduled ZOSTER VACCINE (1 of [facility] College Test 2) [code = ZOSTER of Medicin e VACCINE (1 of 2)] Future Scheduled MEDICARE AWV (Initial) [facility] Test [code = MEDICARE AWV of Medi cine (Initial)] Future Scheduled OSTEOPOROSIS SCREENING [facility] Test [code = OSTEOPOROSIS of Medi cine SCREENING] Future Scheduled FLU VACCINE > 6 MONTHS [facility] Test [code = FLU VACCINE > of Med icine 6 MONTHS] Future Scheduled MAMMOGRAM ANNUAL [code B [facility] Test = MAMMOGRAM ANNUAL] of Medic ine Future Scheduled BMI FOLLOW UP PLAN [facility] [employer] Test [code = BMI FOLLOW UP of Med icine PLAN] Future Scheduled FALL SCREEN [code = [facility] Test FALL SCREEN] of Medicine Future Scheduled BASIC METABOLIC PANEL [facility] [code = 89165-6] 02/20/2020 of Medicine Future Scheduled MAGNESIUM [code = Ordered: [facility] Test 70841-5] 02/20/2020 of Medicine Future Scheduled PHOSPHORUS [code = Ordered: [facility] Test 2777-1] 02/20/2020 of Medicine Future Scheduled URINALYSIS AUTO Ordered: [facility] ollege Test W/SCOPE [code = 02/20/2020 of Medicine 94278-1] Future Scheduled RANDOM URINE Ordered: [facility] [employer] Test PROTEIN/CREATININE 02/20/2020 of Medici ne [code = 2890-2] Future Scheduled PTH INTACT [code = Ordered: [employer] Test 2731-8] 02/20/2020 of Medicine Future Scheduled COLON CANCER [facility] [employer] Test SCREENING: COLONOSCOPY of [place] [code = COLON CANCER SCREENING: COLONOSCOPY] Future Scheduled TETANUS SHOT (ADULT) [employer] Test [code = TETANUS SHOT of Medi cine (ADULT)] Future Scheduled HEPATITIS C SCREENING [employer] Test [code = HEPATITIS C of Medic ine SCREENING] Future Scheduled ZOSTER VACCINE (1 of [employer] Test 2) [code = ZOSTER [...] PLAN] Future Scheduled FALL SCREEN [code = [facility] or College Test FALL SCREEN] of Medicine Future Scheduled BASIC METABOLIC PANEL [facility] [code = 83033-8] 04/16/2020 of Medicine Future Scheduled CALCIUM IONIZED [code [facility] = 47100-7] 04/16/2020 of Medicine Future Scheduled PHOSPHORUS [code = Ordered: [facility] [employer] Test 2777-1] 04/16/2020 of Medicine Future Scheduled MAGNESIUM [code = Ordered: [facility] College Test 85324-5] 04/16/2020 of Medicine Future Scheduled URINALYSIS AUTO Ordered: [facility] C [facility]lege Test W/SCOPE [code = 04/16/2020 of Medicine 49159-3] Future Scheduled RANDOM URINE Ordered: [facility] [employer] Test PROTEIN/CREATININE 04/16/2020 of Medici ne [code = 2890-2] Future Scheduled PTH INTACT [code = Ordered: [employer] Test 2731-8] 04/16/2020 of Medicine Future Scheduled COLON CANCER [facility] [employer] Test SCREENING: COLONOSCOPY of [place] [code = COLON CANCER SCREENING: COLONOSCOPY] Future Scheduled COVID-19 Vaccine [facility] [employer] Test Evaluation [code = of Medici ne COVID-19 Vaccine Evaluation] Future Scheduled TETANUS SHOT (ADULT) [employer] Test [code = TETANUS SHOT of Medi cine (ADULT)] Future Scheduled ZOSTER VACCINE (1 of [employer] Test 2) [code = ZOSTER [...] ONLY) [code = 06/28/2020 of Med icine 74864] Future Scheduled Screening for [facility] Col lege Test malignant neoplasm of of Med icine colon (procedure) [code = 989877852] Future Scheduled TETANUS SHOT (ADULT) [employer] [code = TETANUS SHOT of Medi cine (ADULT)] Future Scheduled ZOSTER VACCINE (1 of [employer] Test 2) [code = ZOSTER of Medicin e VACCINE (1 of 2)] Future Scheduled MEDICARE AWV (Initial) [employer] Test [code = MEDICARE AWV of Medi cine (Initial)] Future Scheduled Screening for [facility] Col [facility]ge Test osteoporosis of Medicine (procedure) [code = 835271724] Future Scheduled Screening for [facility] Col [facility]ge Test malignant neoplasm of of Med icine breast (procedure) [code = 455334409] Future Scheduled BMI FOLLOW UP PLAN [employer] Test [code = BMI FOLLOW UP of Med icine PLAN] Future Scheduled FALL SCREEN [code = [employer] [facility] FALL SCREEN] of Medicine Future Scheduled Hemoglobin A1c [facility] Test measurement of Medicine (procedure) [code = 80989935] Future Scheduled Screening for [facility] [employer] Test malignant neoplasm of of Med icine colon (procedure) [code = 827589232] Future Scheduled TETANUS SHOT (ADULT) [employer] [code = TETANUS SHOT of Medi cine (ADULT)] Future Scheduled ANNUAL DIABETIC [employer] [facility] [employer] Test RETINOPATHY SCREENING of Med icine [code = ANNUAL DIABETIC RETINOPATHY SCREENING] Future Scheduled ZOSTER VACCINE (1 of [employer] Test 2) [code = ZOSTER of Medicin e VACCINE (1 of 2)] Future Scheduled MEDICARE AWV (Initial) [employer] Test [code = MEDICARE AWV of Medi cine (Initial)] Future Scheduled Screening for [employer] Test osteoporosis of Medicine (procedure) [code = 813343559] Future Scheduled Screening for [facility] Col [facility]ge Test malignant neoplasm of of Med icine breast (procedure) [code = 543023663] Future Scheduled BMI FOLLOW UP PLAN [employer] [facility] [code = BMI FOLLOW UP of Med icine PLAN] Future Scheduled Diabetic foot [employer] Test examination of Medicine (regime/therapy) [code = 909421675] Future Scheduled FALL SCREEN [code = [employer] FALL SCREEN] of Medicine Future Scheduled Hemoglobin A1c [facility] Test measurement of Medicine (procedure) [code = 73451862] Future Scheduled Screening for [facility] Test malignant neoplasm of of Med icine colon (procedure) [code = 709022980] Future Scheduled TETANUS SHOT (ADULT) [employer] Test [code = TETANUS SHOT of Medi cine (ADULT)] Future Scheduled ANNUAL DIABETIC [facility] C [facility] Test RETINOPATHY SCREENING of Med icine [code = ANNUAL DIABETIC RETINOPATHY SCREENING] Future Scheduled ZOSTER VACCINE (1 of [employer] Test 2) [code = ZOSTER of Medicin e VACCINE (1 of 2)] Future Scheduled MEDICARE AWV (Initial) [employer] Test [code = MEDICARE AWV of Medi cine (Initial)] Future Scheduled Screening for [facility] Test osteoporosis of Medicine (procedure) [code = 577801768] Future Scheduled Screening for [employer] Test malignant neoplasm of of Med icine breast (procedure) [code = 396002186] Future Scheduled FLU VACCINE > 6 MONTHS [employer] Test [code = FLU VACCINE > of Med icine 6 MONTHS] Future Scheduled BMI FOLLOW UP PLAN [employer] Test [code = BMI FOLLOW UP of Med icine PLAN] Future Scheduled Diabetic foot [facility] Test examination of Medicine (regime/therapy) [code = 130677180] Future Scheduled FALL SCREEN [code = [employer] FALL SCREEN] of Medicine Future Scheduled HANDICAPPED PLACARD Ordered: [employer] Test [code = NOCPT] 08/01/2020 of Medicine Future Scheduled Hemoglobin A1c [facility] Test measurement of Medicine (procedure) [code = 26628348] Future Scheduled Screening for [facility] Test malignant neoplasm of of Med icine colon (procedure) [code = 683366617] Future Scheduled TETANUS SHOT (ADULT) [employer] Test [code = TETANUS SHOT of Medi cine (ADULT)] Future Scheduled ANNUAL DIABETIC [facility] C [facility] Test RETINOPATHY SCREENING of Med icine [code = ANNUAL DIABETIC RETINOPATHY SCREENING] Future Scheduled ZOSTER VACCINE (1 of [employer] Test 2) [code = ZOSTER of Medicin e VACCINE (1 of 2)] Future Scheduled MEDICARE AWV (Initial) [employer] Test [code = MEDICARE AWV of Medi cine (Initial)] Future Scheduled Screening for [facility] Test osteoporosis of Medicine (procedure) [code = 568061410] Future Scheduled Screening for [facility] Test malignant neoplasm of of Med icine breast (procedure) [code = 277376239] Future Scheduled FLU VACCINE > 6 MONTHS [employer] Test [code = FLU VACCINE > of Med icine 6 MONTHS] Future Scheduled BMI FOLLOW UP PLAN [facility] Test [code = BMI FOLLOW UP of Med icine PLAN] Future Scheduled Diabetic foot [employer] examination of Medicine (regime/therapy) [code = 478054604] Future Scheduled FALL SCREEN [code = [employer] FALL SCREEN] of Medicine Future Scheduled BASIC METABOLIC PANEL Ordered: [employer] Test [code = 82282-4] 12/19/2019 of Medicine Future Scheduled MAGNESIUM [code = Ordered: [facility] Test 20288-5] 12/19/2019 of Medicine Future Scheduled PHOSPHORUS [code = Ordered: [facility] Test 2777-1] 12/19/2019 of Medicine Future Scheduled URINALYSIS AUTO Ordered: [facility] C [facility]lege Test W/SCOPE [code = 12/19/2019 of Medicine 25583-0] Future Scheduled RANDOM URINE Ordered: [facility] [employer] Test PROTEIN/CREATININE 12/19/2019 of Medici ne [code = 2890-2] Future Scheduled PTH INTACT [code = Ordered: [facility] Test 2731-8] 12/19/2019 of Medicine Future Scheduled CBC W/AUTO DIFF WITH Ordered: [place] [facility] Test PLATELETS [code = 12/19/2019 of Medicin e 45162-6] Future Scheduled IRON+TIBC+%SAT [code = Ordered: B [facility] Test NOCPT] 12/19/2019 of Medicine Future Scheduled FERRITIN [code = Ordered: [facility] Test 68783-1] 12/19/2019 of Medicine Future Scheduled ANGIOTENSIN CONVERTING Ordered: [facility] Test ENZYME [code = 2742-5] 12/19/2019 of Me dicine Future Scheduled CALCIUM IONIZED [code Ordered: [facility] Test = 02857-3] 12/19/2019 of Medicine Future Scheduled URINE Ordered: [facility] [employer] Test CALCIUM/CREATININE 12/19/2019 of Medici ne RATIO [code = NOCPT] Future Scheduled SODIUM, RANDOM URINE Ordered: [place] [facility] Test [code = 22370] 12/19/2019 of Medicine Future Scheduled POTASSIUM,RANDOM URINE Ordered: [facility] Test [code = 59638] 12/19/2019 of Medicine Future Scheduled SHINE W REFLEX TITER Ordered: [facility] Test [code = NOCPT] 12/19/2019 of Medicine Future Scheduled PROTEIN Ordered: [facility] ege Test ELECTROPHORESIS SERUM 12/19/2019 of Med icine [code = 07883-6] Future Scheduled COLON CANCER [facility] [employer] Test SCREENING: COLONOSCOPY of Me dicine [code = COLON CANCER SCREENING: COLONOSCOPY] Future Scheduled MAMMOGRAM ANNUAL [code B [facility] Test = MAMMOGRAM ANNUAL] of Medic ine Future Scheduled TETANUS SHOT (ADULT) [facility] Test [code = TETANUS SHOT of Medi cine (ADULT)] Future Scheduled BMI FOLLOW UP PLAN [facility] Test [code = BMI FOLLOW UP of Med icine PLAN] Future Scheduled HEPATITIS C SCREENING [employer] [facility] [code = HEPATITIS C of Medic ine SCREENING] Future Scheduled ZOSTER VACCINE (1 of [employer] Test 2) [code = ZOSTER of Medicin e VACCINE (1 of 2)] Future Scheduled MEDICARE AWV (Initial) [facility] Test [code = MEDICARE AWV of Medi cine (Initial)] Future Scheduled FALL SCREEN [code = [employer] FALL SCREEN] of Medicine Future Scheduled OSTEOPOROSIS SCREENING [facility] Test [code = OSTEOPOROSIS of Medi cine SCREENING] Future Scheduled PNEUMOVAX >=65 [facility] Test (PPSV23) [code = of Medicine PNEUMOVAX >=65 (PPSV23)] Future Scheduled FLU VACCINE > 6 MONTHS [employer] Test [code = FLU VACCINE > of Med icine 6 MONTHS] Future Scheduled PRIOR AUTH FOR 1 Occurrences [facility] C [facility] Test DIABETIC SHOES (A5500) starting of Me dicine [code = A5500] 06/28/2020 until 06/28/2021 Future Scheduled PRIOR AUTH FOR 1 Occurrences [facility] C [facility] Test DIABETIC INSERTS starting of Medicine (A5512) [code = A5512] 06/28/2020 until 06/28/2021 Future Scheduled US RENAL BILATERAL 1 Occurrences [employer] Test [code = 64834] starting of Medicine 12/19/2019 until 12/18/2020 Future Scheduled XR KNEE BILATERAL, 1 Occurrences [facility] or College Test WEIGHT BEARING [code = starting of Me dicine 16363-9] 02/20/2020 until 09/19/2020 Encounters Start End Encounter Admission Attending Care Care Encounter Source Date/Time Date/Time Type Type Clinicians Facility Department ID 2021-02-04 Emergency [facility] [id number] Univers 20:42:03 [facility] 2021-05-10 2021-05-10 Outpatient George LU [facility] [id number] Univers 10:30:00 10:30:00 TIAN [id number] [facility] 2021-05-10 2021-05-10 Outpatient George LU [facility] [id number] Univers 10:30:00 10:30:00 TIAN [facility] 2021-04-10 2021-04-10 Office RAUL SOLIMAN 1.2.840.114 [id number] [facility] 09:34:19 09:58:23 Visit ALBIN AMBULATOR 350.1.13.21 College Y 0.2.7.2.686 of [id number] [facility] 335 e 2021-02-25 2021-02-25 Orders Doctor MAULIK 1.2.840.114 [id number] Univers 00:00:00 00:00:00 Only Unassigned, ADELINA 350.1.13.10 ity of [place] [facility] 4.2.7.2.686 Fausto as [phone] [facility] 009 [place] 2021-01-26 2021-01-26 Outpatient R [facility] [id number] Univers 15:20:00 15:20:00 [id number] ity [facility] 2021-01-26 2021-01-26 [facility] [id number] Univers 15:20:00 15:20:00 SELENE ity [facility] 2021-01-26 2021-01-26 Urgent Navin Valera [facility] 1.2.840.114 [id number] Univers 14:55:35 15:15:35 Care Evangelista [facility] 350.1.13.10 ity of [place] 4.2.7.2.686 Fausto as Migue?Blea [id number] [address] Medical Office Building 2021-01-09 2021-01-09 Outpatient RAUL SOLIMAN [facility] [id number] [facility] 08:43:15 09:03:11 ALBIN alva of Medicin e 2021-01-03 2021-01-03 Letter MAULIK [place] 1.2.840.114 [id number] Univers 00:00:00 00:00:00 (Out) Pamela SAHU 350.1.13.10 it y of [facility] 4.2.7.2.686 Fausto as [id number] [address] 2021-01-02 2021-01-02 Laboratory Only, Ang Db Test [facility] 1.2.8 40.114 [id number] Univers 09:03:03 09:18:03 Only Kayy Marx [facility] 350.1.13.10 ity of [place] 4.2.7.2.686 Fausto as Migue?Blea [phone] [address] Medical Office Building 2021-01-02 2021-01-02 Outpatient R [facility] [id number] Univers 09:15:00 09:15:00 ity [facility] 2021-01-02 2021-01-02 Outpatient R [facility] [id number] Univers 08:45:00 08:45:00 [id number] ity [facility] 2020-12-25 2020-12-25 Outpatient RAUL SOLIMAN [facility] [id number] [facility] 15:37:31 15:53:52 ALBIN alva of Medicin e 2020-12-13 2020-12-13 Outpatient [facility] [id number] Univers 16:00:00 16:00:00 [id number] ity of [facility] 2020-12-13 2020-12-13 [facility] [id number] Univers 16:00:00 16:00:00 BOBBY ity [facility] 2020-12-11 2020-12-11 [facility] 1.2.840.114 [id number] Univers 01:00:00 03:03:00 Devi Freeman 350.1.13.10 ity [facility] 4.2.7.2.686 [place] [facility] [id number] [place] 386924 [place] 2020-12-11 2020-12-11 Letter MAULIK [place] 1.2.840.114 [id number] Univers 00:00:00 00:00:00 (Out) Pamela SAHU 350.1.13.10 it y of [facility] 4.2.7.2.686 Fausto as [id number] [facility] 019 [place] 2020-12-08 2020-12-08 Outpatient R [facility] [id number] Univers 13:25:00 13:25:00 [id number] ity of [facility] 2020-12-08 2020-12-08 Outpatient R [facility] [id number] Univers 13:25:00 13:25:00 ity of [facility] 2020-12-08 2020-12-08 Laboratory Only, Ang Db Test [facility] 1.2.8 40.114 [id number] Univers 12:59:14 13:09:14 Only [facility] 350.1.13.10 ity [facility] 4.2.7.2.686 Fausto as Migue?Blea [phone] [place] [address]elly[address] Medical Office Building 2020-10-26 2020-10-29 [facility] 1.2.605.652 [id number] Univers 15:49:45 13:53:39 Visit Tian Puma Lydia 350.1.13.10 i ty of [place]2.7.2.[place] [id number] [place] dical [place] 220 [facility] 2020-10-26 2020-10-26 Outpatient George BRYNN [facility] [id number]-20 Univers 16:00:00 16:00:00 TIAN [id number] ity [facility] 2020-10-26 2020-10-26 Outpatient George BRYNN [facility] [id number] Univers 16:00:00 16:00:00 TIAN [facility] 2020-10-10 2020-10-10 Telephone Van [facility] 1.2.840.114 [id number] Univers 00:00:00 00:00:00 Chris Freeman 350.1.13.10 ity of [place].7.2.[place] [phone] [place] dical [place]al 092 [facility] 2020-10-09 2020-10-09 Sound Printer 2, Adc Lab [facility] 1.2.840.114 [id number] Univers 11:02:42 11:17:42 Visit Chris Araujo 350.1.13 .10 ity of [place].2.7.2.[place] [phone] [place] dical [place]al 353 [facility] 2020-10-09 2020-10-09 Office Van [facility] 1.2.840.114 [id number] Univers 09:50:22 11:01:13 Visit Chris Freeman 350.1.13.10 ity of [place].2.[place] [id number] [place] dical [place]al 092 [facility] 2020-10-09 2020-10-09 Outpatient CHRIS GARCIA [facility] [id number] Univers 10:00:00 10:00:00 [facility] [id number] [facility] 2020-10-09 2020-10-09 Outpatient CHRIS GARCIA [facility] [id number] Univers 10:00:00 10:00:00 CHRIS ARAUJO ity of [facility] 2020-10-09 2020-10-09 Orders Doctor MAULIK 1.2.840.114 [id number] Univers 00:00:00 00:00:00 Only Unassigned, ADELINA 350.1.13.10 ity of [place] [facility] 4.2.7.2.686 Fausto as [id number] [facility] [address] [place] 2020-09-25 2020-09-25 Orders Doctor MAULIK 1.2.840.114 [id number] Univers 00:00:00 00:00:00 Only Unassigned, ADELINA 350.1.13.10 ity of [place] [facility] 4.2.7.2.686 Fausto as [id number] [facility] 00[address] 2020-08-01 2020-08-01 Office RAUL Enriquez 1.2.840.[id number] [place] [address] 09:09:11 12:28:15 Visit Kayleen AMBULATOR 350.1.13.21 College Javier Y 0.2.7.2.686 of [id number] [facility] 370 e 2020-08-01 2020-08-01 Office RAUL Enriquez 1.2.840.114 [id number] 09:09:11 12:28:15 Visit Kayleen AMBULATOR 350.1.13.21 Javier Y 0.2.7.2.686 [id number] 370 2020-07-02 2020-07-02 Office RAUL Soliman 1.2.840.[id number] [place] [address] 08:50:02 09:20:02 Visit Albin AMBULATOR 350.1.13.21 College Rosalina Y 0.2.7.2.686 of [id number] [facility] charlee 335 e 2020-07-02 2020-07-02 Office RAUL Soliman 1.2.840.114 [id number] 08:50:02 09:20:02 Visit Albin AMBULATOR 350.1.13.21 Rosalina Y 0.2.7.2.686 [id number] 335 2020-06-28 2020-06-28 Office RAUL Laura 1.2.840.114 [id number] [facility] 09:53:30 10:13:30 Visit Rocky S AMBULATOR 350.1.13.21 College Y 0.2.7.2.686 of [id number] [facility] 600 e 2020-06-28 2020-06-28 Office RAUL Laura 1.2.840.114 [id number] 09:53:30 10:13:30 Visit Rocky S AMBULATOR 350.1.13.21 Y 0.2.7.2.686 [id number] 600 2020-06-25 2020-06-25 Office Denisse BCM 1.2.840.114 [id number] [facility] 09:30:00 10:00:00 Visit Bridget Morfin AMBULATOR 350.1.13.21 College Win Y 0.2.7.2.686 of [id number] [facility] 310 e 2020-06-25 2020-06-25 Office Denisse, DOREENM 1.2.840.114 [id number] 09:30:00 10:00:00 Visit Bridget Morfin AMBULATOR 350.1.13.21 Win Y 0.2.7.2.686 [id number] 310 2020-04-16 2020-04-16 Office RAUL Soliman 1.2.840.114 [id number] [facility] 10:00:07 10:34:47 Visit Albin AMBULATOR 350.1.13.21 College Rosalina Y 0.2.7.2.686 of [id number] [facility] 335 e 2020-04-16 2020-04-16 Office Jourdan RAUL 1.2.840.114 [id number] 10:00:07 10:34:47 Visit Albin AMBULATOR 350.1.13.21 Rosalina Y 0.2.7.2.686 [id number] 335 2020-02-20 2020-02-20 Office Jourdan DOREENGavi 1.2.840.[id number] [place] [address] 10:40:33 11:12:10 Visit Albin AMBULATOR 350.1.13.21 College Rosalina Y 0.2.7.2.686 of [id number] [facility] 335 e 2020-02-20 2020-02-20 Office RAUL Soliman 1.2.840.114 [id number] 10:40:33 11:12:10 Visit Albin AMBULATOR 350.1.13.21 Rosalina Y 0.2.7.2.686 [id number] 335 2020-02-20 2020-02-20 Office Zoe, BC 1.2.840.[id number] [place] [address] 09:36:09 10:06:09 Visit Kayleen AMBULATOR 350.1.13.21 College Javier Y 0.2.7.2.686 of [id number] [facility] 370 e 2020-02-20 2020-02-20 Office Zoe, BC 1.2.840.114 [id number] 09:36:09 10:06:09 Visit Kayleen AMBULATOR 350.1.13.21 Javier Y 0.2.7.2.686 [id number] 370 2020-01-09 2020-01-09 Office Zoe, [facility] 1.2.840.[id number] [place] [address] 08:08:09 10:16:20 Visit Kayleen AMBULATOR 350.1.13.21 College Javier Y 0.2.7.2.686 of [id number] [facility] 370 e 2020-01-09 2020-01-09 Office Zoe, DOREEN 1.2.840.114 [id number] 08:08:09 10:16:20 Visit Kayleen AMBULATOR 350.1.13.21 Javier Y 0.2.7.2.686 [id number] 370 2019-12-19 2019-12-19 Office DOREEN Soliman 1.2.840.114 [id number] [facility] 08:46:04 09:46:04 Visit Albin AMBULATOR 350.1.13.21 College Rosalina Y 0.2.7.2.686 of [id number] [facility] 335 e 2019-12-19 2019-12-19 Office RAUL Soliman [id number] 08:46:04 09:46:04 Visit Albin AMBULATOR [id number] Rosalina Y [id number] 2019-12-06 2019-12-06 Outpatient EveliaDonlima [facility] [id number] -2019 [place] 11:43:00 11:43:00 [facility] 2013-04-19 2013-04-19 Lab Report nullFlavo Pawan [id number] [id number] [facility] 00:00:00 00:00:00 r Bone & [id number] l [facility] 2012-09-01 2012-09-01 Lab Report nullFlavo Pawan 1685 [id number] [facility] 00:00:00 00:00:00 r Bone & [id number] l [facility] 2012-03-02 2012-03-02 Lab Report nullFlavo Pawan 1669 [id number] [facility] 00:00:00 00:00:00 r Bone & [id number] l [facility] 2011-10-30 2011-10-30 Office nullFlavo Pawan [id number] [facility] 00:00:00 00:00:00 Visit r Office [id number] [facility] 2011-10-29 2011-10-29 Lab Report nullFlavo Pawan 1658 [id number] [facility] 00:00:00 00:00:00 r Bone & [id number] l [facility] 2011-08-29 2011-08-29 Office nullFlavo Pawan [id number] [facility] 00:00:00 00:00:00 Visit r Office [id number] l [place] 2011-07-01 2011-07-01 Lab Report nullFlavo PAWAN 1648 [id number] [facility] 00:00:00 00:00:00 r BONE AND [id number] l [facility] 2011-06-20 2011-06-20 Office nullFlavo Alycia Figueroa 18289 [id number] [facility] 00:00:00 00:00:00 Visit r Office [id number] l [place] 2011-06-20 2011-06-20 Lab Report nullFlavo PAWAN 1647 [id number] [facility] 00:00:00 00:00:00 r BONE AND [id number] l [facility] Results Test Description Test Time Test Comments Results Result Comments Source TROPONIN I 2020-12-11 07:29:58 Test Item Value Reference Range Interpretation Comme nts TROPONIN I (test code = 0.029 ng/mL See_Comment [Au tomated message] The [id number]) system which ge nerated this result tra [...] biotin. Lab Interpretation Normal (test code = 68877-3) [id number] 07:29[facility]58 Test Item Value Reference Interpretation Comments Range TROPONIN I (test 0.029 ng/mL See_Comment [Automated code = 2833957578) message] The system which generated this result [...] biotin. Lab Interpretation Normal (test code = 33331-2) [facility]. METABOLIC PANEL (54192)2020-12-11 07:18:58 Test Item Value Reference Range Interpretation Comments NA (test code = 137 mmol/L 135-145 3010434200) K (test code = 3.6 mmol/L 3.5-5.0 4796371767) CL (test code = 102 mmol/L 98-108 2801930188) CO2 TOTAL (test code = 25 mmol/L 23-31 0048219257) AGAP (test code = 2-16 9394530213) BUN (test code = 18 mg/dL 7-23 4878915998) GLUCOSE (test code = 115 mg/dL 70-110 H 2243509826) CREATININE (test code = 1.80 mg/dL 0.50-1.04 H 4757496455) TOTAL BILI (test code = 1.1 mg/dL 0.1-1.0 7937315528) CALCIUM (test code = 9.1 mg/dL 8.6-10.6 0150618175) T PROTEIN (test code = 8.1 g/dL 6.3-8.2 1482728318) ALBUMIN (test code = 4.4 g/dL 3.5-5.0 4136157309) ALK PHOS (test code = 52 U/L 34-122 8734271006) ALTv (test code = 30 U/L 5-35 1742-6) AST(SGOT) (test code = 57 U/L 13-40 H 1042343948) eGFR (test code = mL/min/1.73m2 6985412610) SKYLAR (test code = SKYLAR) Association of [...] tests). Lab Interpretation Abnormal (test code = 65669-6) [facility]. METABOLIC PANEL (23988)2020-12-11 07:18:58 Test Item Value Reference Range Interpretation Comments NA (test code = 137 mmol/L 135-145 1211661963) K (test code = 3.6 mmol/L 3.5-5.0 0946256961) CL (test code = 102 mmol/L 98-108 5645836196) CO2 TOTAL (test code = 25 mmol/L 23-31 8725217914) AGAP (test code = 2-16 9405284123) BUN (test code = 18 mg/dL 7-23 9603748309) GLUCOSE (test code = 115 mg/dL 70-110 H 0159029527) CREATININE (test code = 1.80 mg/dL 0.50-1.04 H 8270322362) TOTAL BILI (test code = 1.1 mg/dL 0.1-1.0 3017990458) CALCIUM (test code = 9.1 mg/dL 8.6-10.6 0358148625) T PROTEIN (test code = 8.1 g/dL 6.3-8.2 2879422748) ALBUMIN (test code = 4.4 g/dL 3.5-5.0 5286748825) ALK PHOS (test code = 52 U/L 34-122 5026115065) ALTv (test code = 30 U/L 5-35 1742-6) AST(SGOT) (test code = 57 U/L 13-40 H 5303402595) eGFR (test code = mL/min/1.73m2 5292006327) SKYLAR (test code = SKYLAR) Association of [...] tests). 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 It is used under Emergency Use [...] indicated. 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 It is used under Emergency Use [...] indicated. Lab Interpretation Abnormal (test code = 52421-0) [facility] WITH [id number] 06:53:00 Test Item Value Reference Range Interpretation Comments WBC (test code = See_Comment L [Automated 1140-2) message] The sy stem which generated this result transmitted reference range : 4.30 - 11.10 10*3/?L. The reference range was not used to interpret this result as normal/abnormal . RBC (test code = See_Comment [Automated 785-8) message] The sy stem which generated this [...] (test code = 37.1 fL 39.0-49.9 L 47270-9) RDW-CV (test code = 13.0 % 12.0-15.5 788-0) PLT (test code = See_Comment L [Automated 777-3) message] The sy stem which generated this result transmitted reference range : 166 - 358 10*3/ ?L. The reference r marcos was not used to interpret this result as normal/abnormal . MPV (test code = 10.6 fL 9.5-12.9 30293-6) IPF % (test code = 2.4 % 1.3-7.7 Platelet count 4066005398) measured by fluorescence method. NRBC/100 WBC (test See_Comment [Automat ed code = 9181544530) message] The system which generated this result transmitted reference range : 0.0 - 10.0 /100 WBCs. The refer ence range was not u sed to interpret th is result as normal/abnormal . NRBC x10^3 (test code <0.01 See_Comment [Auto mated = 2910625940) message] The s ystem which generated this result transmitted reference range : 10*3/?L. The reference range was not used to interpret this result as normal/abnormal . GRAN MAT (NEUT) % 85.3 % (test code = 770-8) IMM GRAN % (test code 0.50 % = 5479006681) LYMPH % (test code = 8.8 % 736-9) MONO % (test code = 5.4 % 5905-5) EOS % (test code = 0.0 % 713-8) BASO % (test code = 0.0 % 706-2) GRAN MAT x10^3(ANC) 3.30 10*3/uL 1.88-7.09 (test code = 4331179197) IMM GRAN x10^3 (test <0.03 0.00-0.06 code = 3701933472) LYMPH x10^3 (test code 0.34 10*3/uL 1.32-3.29 L = 731-0) MONO x10^3 (test code 0.21 10*3/uL 0.33-0.92 L = 742-7) EOS x10^3 (test code = <0.03 0.03-0.39 L 711-2) BASO x10^3 (test code <0.03 0.01-0.07 = 704-7) Lab Interpretation Abnormal (test code = 27418-5) [facility] WITH [id number] 06:53:00 Test Item Value Reference Range Interpretation [...] (test code = 37.1 fL 39.0-49.9 L 13233-6) RDW-CV (test code = 13.0 % 12.0-15.5 788-0) PLT (test code = See_Comment L [Automated 777-3) message] The sy stem which generated this result transmitted reference range : 166 - 358 10*3/ ?L. The reference r marcos was not used to interpret this result as normal/abnormal . MPV (test code = 10.6 fL 9.5-12.9 51395-0) IPF % (test code = 2.4 % 1.3-7.7 Platelet count 0521630005) measured by fluorescence method. NRBC/100 WBC (test See_Comment [Automat ed code = 8321165050) message] The system which generated this result transmitted reference range : 0.0 - 10.0 /100 WBCs. The refer ence range was not u sed to interpret th is result as normal/abnormal . NRBC x10^3 (test code <0.01 See_Comment [Auto mated = 6219932074) message] The s ystem which generated this result transmitted reference range : 10*3/?L. The reference range was not used to interpret this result as normal/abnormal . GRAN MAT (NEUT) % 85.3 % (test code = 770-8) IMM GRAN % (test code 0.50 % = 6740600465) LYMPH % (test code = 8.8 % 736-9) MONO % (test code = 5.4 % 5905-5) EOS % (test code = 0.0 % 713-8) BASO % (test code = 0.0 % 706-2) GRAN MAT x10^3(ANC) 3.30 10*3/uL 1.88-7.09 (test code = 2063359894) IMM GRAN x10^3 (test <0.03 0.00-0.06 code = 5915692909) LYMPH x10^3 (test code 0.34 10*3/uL 1.32-3.29 L = 731-0) MONO x10^3 (test code 0.21 10*3/uL 0.33-0.92 L = 742-7) EOS x10^3 (test code = <0.03 0.03-0.39 L 711-2) BASO x10^3 (test code <0.03 0.01-0.07 = 704-7) Lab Interpretation Abnormal (test code = 21369-8) [facility] HEMOGLOBIN A1C [id number] 21:52:00 Test Item Value Reference Range Interpretation Comments POCT HBA1C (test code = 4548-4) 5.5 % 4-6 [facility] HEMOGLOBIN A1C [id number] 21:52:00 Test Item Value Reference Range Interpretation Comments POCT HBA1C (test code = 4548-4) 5.5 % 4-6 [facility] 14:30:00 Test Item Value Reference Range Interpretation Comments CRP (test code = <1.0 mg/L See_Comment [Automated message] The CRP) system which ge nerated this result tra nsmitted reference range : <=4.9. The reference r marcos was not used to int erpret this result as normal/abnormal . [facility]Dtnwxgf[facility]zum[facility]gi4916-85-45 11:43:00 Test Item Value Reference Range Interpretation Comments ESR (test code = ESR) 24 See_Comment [Auto mated message] The system which ge nerated this result transmit nicholas reference range : <=40. The reference range was not used to interpr et this result as daniela l/abnormal. [facility] HospitalNfiygyeCdtnuvxgld7693-54-82 10:33:00 Test Item Value Reference Range Interpretation Comments HGB (test code = HGB) 12.4 11.1-15.[address] [facility] HospitalWdnwsneNyxnpvshdm6725-09-30 10:33:00 Test Item Value Reference Range Interpretation Comments HCT (test code = HCT) 37.0 34.0-46.[address] [facility] HospitalDsdaybnUlwtcolqir1385-68-42 10:33:00 Test Item Value Reference Range Interpretation Comments PLATELETS (test code = 247 X10E3/UL 140-415 PLATELETS) [facility] HospitalPilpngxWyfzjqjlqz6408-37-23 10:46:00 Test Item Value Reference Range Interpretation Comments HGB (test code = HGB) 12.4 11.5-15.[address] [facility] [facility] HospitalVphxjfzIuuneoyhmu7318-58-19 10:46:00 Test Item Value Reference Range Interpretation Comments HCT (test code = HCT) 37.6 34.0-44.[address] [facility] [facility] HospitalCzrinkiNyqlaufncy5465-86-33 10:46:00 Test Item Value Reference Range Interpretation Comments PLATELETS (test code = 240 X10E3/UL 140-415 PLATELETS) [facility]inteYtlupsrPwdtlhctb3158-53-18 06:34:00 Test Item Value Reference Range Interpretation Comments CREATININE (test code = CREATININE) 0.97 0.57-1.00 [facility]inteXwvdueiZaozefhfp8826-29-57 06:34:00 Test Item Value Reference Range Interpretation Comments CREATININE (test code = CREATININE) 0.97 0.57-1.[address] [facility] HospitalWvvbjziVxtkwqncsy5556-79-80 07:25:00 Test Item Value Reference Range Interpretation Comments HGB (test code = HGB) 12.2 11.5-15.0 [facility]GuxopliRuiuevaoms5766-63-63 07:25:00 Test Item Value Reference Range Interpretation Comments HCT (test code = HCT) 38.0 34.0-44.[address] [facility] HospitalZmclaogQuizntfuou3063-76-59 07:25:00 Test Item Value Reference Range Interpretation Comments PLATELETS (test code = 255 X10E3/UL 140-415 PLATELETS) [facility]inteDlrfrmdFzyafxgjd2960-40-32 07:04:00 Test Item Value Reference Range Interpretation Comments CREATININE (test code = CREATININE) 0.97 4.5-12.0 [facility] PointeKllehljUkhrzjhne7270-98-25 07:04:00 Test Item Value Reference Range Interpretation Comments CREATININE (test code = CREATININE) 0.97 0.57-1.00 [facility] PointePwsxlptXzeilkzwg6022-43-87 07:04:00 Test Item Value Reference Range Interpretation Comments CREATININE (test code = CREATININE) 0.97 0.57-1.00 [facility]"
[2021-04-10] MEDS ORDERED: METOCLOPRAMIDE 10 MG/2mL INJ ONE (23:57)
[2021-04-10] MEDS ORDERED: NA CHLORIDE 0.9% 500 ML ONE (23:58)
[2021-04-11 01:14] LABS: SARS-COV-2 RT PCR NEGATIVE (NEGATIVE)
--- NOTE | 2021-04-11 02:34 | ER ---
Nurse's Notes [facility] Name: Izabela Minor Age: 70 yrs Sex: Female : 1950 Arrival Date: 04/10/2021 Time: 17:52 Bed 13 Private MD: Josh Driscoll E Diagnosis: Headache Presentation: 04/10 18:50 Chief complaint: Patient states: I have pain in the right side of my head, began about ld1 an hour ago. Coronavirus screen: At this time, the client does not indicate any symptoms associated with coronavirus-19. Ebola Screen: No symptoms or risks identified at this time. Initial Sepsis Screen: Does the patient meet any 2 criteria? No. Patient's initial sepsis screen is negative. Does the patient have a suspected source of infection? No. Patient's initial sepsis screen is negative. Risk Assessment: Do you want to hurt yourself or someone else? Patient reports no desire to harm self or others. Onset of symptoms was April 10, 2021. 18:50 Method Of Arrival: Ambulatory ld1 18:50 Acuity: NIYA 4 ld1 Triage Assessment: 18:51 Headache History: Denies prior headaches. General: Appears in no apparent distress. ld1 comfortable, Behavior is calm, cooperative, appropriate for age. Pain: Complains of pain in face Pain does not radiate. Pain currently is 10 out of 10 on a pain scale. Quality of pain is described as throbbing, Pain began suddenly, Also complains of no other associated symptoms. Neuro: Level of Consciousness is awake, alert, obeys commands, Oriented to person, place, time, situation, Appropriate for age. Respiratory: Airway is patent Respiratory effort is even, unlabored, Respiratory pattern is regular, symmetrical. Historical: - Allergies: 18:51 Amoxicillin (Anaphylaxis); ld1 18:51 Sulfa (Sulfonamide Antibiotics); ld1 18:51 Glipizide; ld1 - PMHx: 18:51 Bipolar disorder; High Cholesterol; Diabetes - IDDM; Rheumatoid Arthritis; sarcoidosis; ld1 Hypertension; Cerebrovascular accident; - PSHx: 18:51 polyps on uterus; renal cyst removal; tubal; ld1 - Immunization history:: Adult Immunizations up to date, Client reports receiving the 2nd dose of the Covid vaccine. - Social history:: Smoking status: Patient denies any tobacco usage or history of. Patient/guardian denies using alcohol. Screenin/06 00:02 Abuse screen: Denies threats or abuse. Denies injuries from another. Nutritional mr2 screening: No deficits noted. Tuberculosis screening: No symptoms or risk factors identified. Fall Risk IV access (20 points). Gait- Weak (10 pts.). Assessment: 02:40 Pain: Denies pain. mr2 Vital Signs: 04/10 18:50 BP 166 / 81; Pulse 79; Resp 18; Temp 98.2(O); Pulse Ox 99% on R/A; Weight 102.06 kg; ld1 Height 5 ft. 9 in. (175.26 cm); Pain 8/10; 04/11 01:00 BP 152 / 78; Pulse 76; Resp 17; Temp 98.4; Pulse Ox 98% on R/A; Pain 1/10; mr2 04/10 18:50 Body Mass Index 33.23 (102.06 kg, 175.26 cm) ld1 ED Course: 04/10 17:52 Patient arrived in ED. mr 17:52 Josh Driscoll MD is Private Physician. mr 18:51 Triage completed. ld1 18:51 Arm band placed on right wrist. ld1 21:21 Trey Lindsay PA is PHCP. jmm 21:21 Octaviano Barron MD is Attending Physician. jmm 21:56 Asim Stanley, RADHA is Primary Nurse. mr2 23:06 CT Head Brain wo Cont In Process Unspecified. EDMS 23:23 COVID-19/FLU A+B Sent. mr2 23:23 COVID-19/FLU A+B (Document "Date of Onset" if Symptomatic) Sent. mr2 04/11 00:02 No provider procedures requiring assistance completed. Inserted saline lock: 20 gauge mr2 in left antecubital area, using aseptic technique. 00:10 Patient has correct armband on for positive identification. Bed in low position. Call mr2 light in reach. Side rails up X2. 02:32 Andre Currie MD is Referral Physician. jmm 02:41 IV discontinued. mr2 Administered Medications: 04/10 23:25 Drug: NS 0.9% 500 ml Route: IV; Rate: bolus; Site: left antecubital; mr2 23:25 Drug: Reglan (metoCLOPramide) 20 mg Route: IVP; Site: left antecubital; mr2 Outcome: 04/11 02:33 Discharge ordered by MD. elder 02:41 Discharged to home ambulatory. mr2 02:41 Condition: stable 02:41 Discharge instructions given to patient, Instructed on discharge instructions, follow up and referral plans. 02:42 Patient left the ED. mr2 Signatures: Dispatcher [employer] EDMS Trey Lindsay PA PA jmm Rivera, Mary mr Lulu Vogel, RN RN ld1 Asim Stanley RN RN mr2
--- NOTE | 2021-04-11 02:34 | EDPHYS ---
Physician Documentation [facility] Name: Izabela Minor Age: 70 yrs Sex: Female : 1950 Arrival Date: 04/10/2021 Time: 17:52 Bed 13 Private MD: Josh Driscoll E ED Physician Octaviano Barron HPI: 04/10 22:50 This 70 yrs old Black Female presents to ER via Ambulatory with complaints of Headache. jmm 22:50 The patient complains of pain to the forehead, right pentecostalism and left pentecostalism. Onset: The jmm symptoms/episode began/occurred gradually, 3 day(s) ago. Associated signs and symptoms: Pertinent negatives: fever, neck stiffness, vision loss, vomiting. The symptoms are alleviated by nothing. the symptoms are aggravated by nothing. This is a 70 year old female with a history of bipolar, hlp, dm RA that presents to the ED with complaints of headache beginning Thursday. Denies fever, neck stiffness. Patient has had similar episodes in the past. . Historical: - Allergies: 18:51 Amoxicillin (Anaphylaxis); ld1 18:51 Sulfa (Sulfonamide Antibiotics); ld1 18:51 Glipizide; ld1 - PMHx: 18:51 Bipolar disorder; High Cholesterol; Diabetes - IDDM; Rheumatoid Arthritis; sarcoidosis; ld1 Hypertension; Cerebrovascular accident; - PSHx: 18:51 polyps on uterus; renal cyst removal; tubal; ld1 - Immunization history:: Adult Immunizations up to date, Client reports receiving the 2nd dose of the Covid vaccine. - Social history:: Smoking status: Patient denies any tobacco usage or history of. Patient/guardian denies using alcohol. ROS: 22:50 Constitutional: Negative for fever, chills, and weight loss, Cardiovascular: Negative jmm for chest pain, palpitations, and edema, Respiratory: Negative for shortness of breath, cough, wheezing, and pleuritic chest pain. 22:50 Neuro: Positive for headache. 22:50 All other systems are negative. Exam: 22:50 Constitutional: This is a well developed, well nourished patient who is awake, alert, jmm and in no acute distress. Head/Face: atraumatic. Eyes: EOMI, no conjunctival erythema appreciated ENT: Moist Mucus Membranes Neck: Trachea midline, Supple Chest/axilla: Normal chest wall appearance and motion. Cardiovascular: Regular rate and rhythm. No edema appreciated Respiratory: Normal respirations, no respiratory distress appreciated Abdomen/GI: Non distended, soft Back: Normal ROM Skin: General appearance color normal MS/ Extremity: Moves all extremities, no obvious deformities appreciated, no edema noted to the lower extremities Neuro: Awake and alert, normal gait Psych: Behavior is normal, Mood is normal, Patient is cooperative and pleasant Vital Signs: 18:50 BP 166 / 81; Pulse 79; Resp 18; Temp 98.2(O); Pulse Ox 99% on R/A; Weight 102.06 kg; ld1 Height 5 ft. 9 in. (175.26 cm); Pain 8/10; 04/11 01:00 BP 152 / 78; Pulse 76; Resp 17; Temp 98.4; Pulse Ox 98% on R/A; Pain /10; mr2 04/10 18:50 Body Mass Index 33.23 (102.06 kg, 175.26 cm) ld1 MDM: 04/10 22:50 Patient medically screened. [facility] 04/11 02:31 Data reviewed: vital signs, nurses notes. Counseling: I had a detailed discussion with [facility] the patient and/or guardian regarding: the historical points, exam findings, and any diagnostic results supporting the discharge/admit diagnosis, lab results, radiology results, the need for outpatient follow up, to return to the emergency department if symptoms worsen or persist or if there are any questions or concerns that arise at home. ED course: Patient's YI is relieved. Patient advised to follow up with neuro for further evaluation. I do not suspect SAH or meningitis. Patient is otherwise given strict return precuations. Patient understood and agrees with the plan of care. . 04/10 22:51 Order name: COVID-19/FLU A+B (Document "Date of Onset" if Symptomatic) [facility] 04/10 22:52 Order name: COVID-19/FLU A+B; Complete Time: 01:22 EDAZ 04/10 22:51 Order name: CT Head Brain wo Cont [facility] 04/10 22:51 Order name: Saline Lock; Complete Time: 23:23 [facility] Administered Medications: 04/10 23:25 Drug: NS 0.9% 500 ml Route: IV; Rate: bolus; Site: left antecubital; mr2 23:25 Drug: Reglan (metoCLOPramide) 20 mg Route: IVP; Site: left antecubital; mr2 Disposition: 04/11 03:17 Co-signature as Attending Physician, Octaviano Barron MD. ashley Disposition Summary: 04/11/21 02:33 Discharge Ordered Location: Home [facility] Condition: Stable jmm Diagnosis - Headache [facility] Followup: [facility] - With: Andre Currie MD - When: 2 - 3 days - Reason: Recheck today's complaints, Continuance of care, Re-evaluation by your physician Discharge Instructions: - Discharge Summary Sheet jm - General Headache Without Cause [facility] Forms: - Medication Reconciliation Form [facility] - Thank You Letter [facility] - Antibiotic Education [facility] - Prescription Opioid Use [facility] Signatures: Dispatcher [employer] EDOctaviano Silva MD MD pkl Mickail, Joel, PA PA jmm Dibbern, Lauren RN RN ld1 Asim Stanley RN RN mr2
[2021-04-11 02:53] VITALS: BP 152/78; TEMP 98.4; O2SAT 98
--- NOTE | 2021-04-11 17:55 | RAD REPORT ---
EXAM DESCRIPTION: CT - Head Brain Wo Cont - 04/11/2021 4:36 am CLINICAL HISTORY: 70 years, Female, HEADACHE COMPARISON: 09/04/2020. FINDINGS: Multiple transaxial tomograms of the brain were obtained from the base of the skull to the vertex without contrast. 2-D multiplanar reformats and the coronal and sagittal plane were performed and reviewed. This exam was performed according to our departmental dose-optimization protocol, which includes auto mated exposure control, adjustment of the mA and/or kV according to patient size and/or use of iterat radha reconstruction technique. Brain parenchyma demonstrate mild prominence of the sulci and gyri are corresponding to mild brain at rophy. There is minimal periventricular white matter changes of microvascular ischemia. There is no m idline shift and/or mass effect. There is no evidence for acute intracranial hemorrhage. Lateral ve ntricles and cisterns displace normal appearance. No intra or extra axial fluid collections were se en. The calvarium is intact with no evidence for fracture. The visualized portions of the paranasal s inuses demonstrate preservation of the right maxillary sinus and orbits demonstrate to be clear. IMPRESSION: BRAIN ATROPHY WITH PERIVENTRICULAR MATTER CHANGES OF MICROVASCULAR ISCHEMIA. NO ACUTE INTRACRANIAL HEMORRHAGE. Electronically signed by: William Brandt MD 04/10/2021 11:20 PM OUTREACH ASSISTANT Due to temporary technical issues with the PACS/Fluency reporting system, reports are being signed by the in house radiologists without review as a courtesy to insure prompt reporting. The interpreting radiologist is fully responsible for the content of the report.
== END 2021-04-11 02:42 | disposition home or self-care (01) ==
LOC: ER 17:42
DX: R51.9 Headache, unspecified (principal); I10 Essential (primary) hypertension; Z88.1 Allergy status to other antibiotic agents; Z88.2 Allergy status to sulfonamides; Z88.8 Allergy status to other drugs, medicaments and biological substances; Z20.822 Contact with and (suspected) exposure to COVID-19
CPT/HCPCS: 0240U; 70450; 96374; 99284; J2765; J7040

== ENCOUNTER 2022-11-27 14:44 | Emergency (ER) | payer OTHER ==
--- OUTSIDE RECORDS SUMMARY | 2022-11-27 14:54 | XMS REPORT | Continuity of Care Document ---
:1950 Author Organization [facility] t Address [address] [facility]. [address] [place] [address] Care Team Providers Name Role Phone JOSH DRISCOLL JR Primary Care Physician Unavailable Nato Montes MD Attending Clinician Unavailable NATO MONTES Attending Clinician Unavailable Sergei Pineda MD Attending Clinician Only, Ang Db Test Attending Clinician Unavailable Jonathan Bowen Attending Clinician JONATHAN PRESTON Attending Clinician Unavailable CARLOS ALBERTO Attending Clinician Unavailable TIAN LU Attending Clinician Unavailable Tian Lu MD Attending Clinician Josh Driscoll Attending Clinician Doctor Unassigned, Marceline Attending Clinician Unavailable SELENE AMEZCUA Attending Clinician Unavailable Navin Ortiz Attending Clinician Selene Ahmadi Attending Clinician Alfonso GARCIA, Pamela Corbett Attending Clinician Unavailable Kayy Danielson Attending Clinician BOBBY HUNG Attending Clinician Unavailable Devi Liriano Attending Clinician Chris Araujo MD Attending Clinician 2, [facility] Attending Clinician Unavailable CHRIS ARAUJO Attending Clinician Unavailable CHRIS ARAUJO Attending Clinician Unavailable Issa Attending Clinician Unavailable NATO MONTES Admitting Clinician Unavailable SACHIJean ClaudeKELLEY Admitting Clinician Unavailable Issa Admitting Clinician Unavailable Payers Payer Name Policy Type Policy Number Effective Date Expiration Date Paulette SHELL [facility] [id number] 2018 00:00:00 [facility] - [id number] MEDICARE SOLUTIONS - MEDICARE COMPLETE PLAN 1 (MEDICARE REPLACEMENT HMO) Problems Condition Condition Condition Status Onset Resolution Last Treating Co mments Source Name Details Category Date Date Treatment Clinician Date - - Diagnosis Active 2016-01-14 [facility] UNSPECIFIE UNSPECIFIE 12-26 11:41:00 l D DEMENTIA D DEMENTIA 00:01: He rmann WITHOUT B WITHOUT B 00 Active 12/27/2015 MH OPID [place] Left renal Left renal Disease Active 2014-[address] [facility] Medical [address] [place] [address] HYPERCHOLE Condition Active 2010-042013-04-19 [facility] STEROLEMIA HYPERCHOLE - 11:19:00 l STEROLEMIA 00:00: Alex n Active 00 02/14/2011 Condition 04/19/2013 [facility] BIPOLAR BIPOLAR Condition Active 2010-042013-04-19 [facility] DISORDER DISORDER 1-11 11:19:00 l UNSPECIFIE UNSPECIFIE 00:00: He rmann D D Active 00 02/14/2011 Condition 04/19/2013 [facility] No known No known Disease Unive rs active active ity of problems problems [facility] HYPERLIPID HYPERLIPI Condition Inactiv 2013-04-19 Memoria EMIA DEMIA e 11:19:00 l Inactive Bull Condition 04/19/2013 [facility] PAIN IN PAIN IN Condition Inactiv 2013-04-19 [facility] JOINT, JOINT, e 11:19:00 l MULTIPLE MULTIPLE Alex n SITES SITES Inactive Condition 04/19/2013 [facility] SARCOIDOSI SARCOIDOS Condition Inactiv 2013-04-19 Memoria S IS e 11:19:00 l Inactive Arp Condition 04/19/2013 [facility] UNSPECIFIE UNSPECIFI Condition Inactiv 2013-04-19 Memoria D ED e 11:19:00 l INFLAMMATO INFLAMMATO He rmann RY RY POLYARTHRO POLYARTHRO TE TE Inactive Condition 04/19/2013 [facility] TENDINITIS TENDINITI Condition Inactiv 2013-04-19 Memoria , S, e 11:19:00 l SHOULDER, SHOULDER, Herm rojas RIGHT RIGHT Inactive Condition 04/19/2013 [facility] BACK PAIN, BACK Condition Inactiv 2013-04-19 [facility] LUMBAR PAIN, e 11:19:00 l LUMBAR Bull Inactive Condition 04/19/2013 [facility] TRIGGER TRIGGER Condition Inactiv 2013-04-19 Memoria FINGER, FINGER, e 11:19:00 l INDEX INDEX Bull FINGER FINGER Inactive Condition 04/19/2013 [facility] CARPAL CARPAL Condition Inactiv 2013-04-19 M emoria TUNNEL TUNNEL e 11:19:00 l SYNDROME, SYNDROME, Herm rojas LEFT LEFT Inactive Condition 04/19/2013 [facility] ARTHRITIS, ARTHRITIS Condition Active 2013-04-19 [facility] RHEUMATOID , 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 Condition 04/19/2013 [facility] HYPERTENSI HYPERTENS Condition Active 2013-04-19 Memoria ON ION Active 11:19:00 l Condition Bull 04/19/2013 [facility] DIABETES DIABETES Condition Active 2013-04-19 [facility] MELLITUS, MELLITUS, 11:19:00 l TYPE I, TYPE I, Arp ADULT ADULT ONSET ONSET Active Condition 04/19/2013 [facility] VITAMIN D VITAMIN D Condition Active 2013-04-19 [facility] DEFICIENCY DEFICIENCY 11:19:00 l Active Arp Condition 04/19/2013 [facility] SHOULDER SHOULDER Condition Active 2013-04-19 [facility] PAIN, PAIN, 11:19:00 l RIGHT RIGHT Bull Active Condition 04/19/2013 [facility] UNSPECIFIE UNSPECIFI Condition Active 2013-04-19 Memoria D ED 11:19:00 l ARTHROPATH ARTHROPATH He rmann Y SITE Y SITE UNSPECIFIE UNSPECIFIE D D Active Condition 04/19/2013 [facility] History of Past Illness Condition Condition Condition Status Onset Resolution Last Treating Co mments Source Name Details Category Date Date Treatment Clinician Date RIGHT RIGHT Condition Inactiv 2013-04-19 2013-04-19 [facility] CUBITAL CUBITAL e -13 11:19:00 11:19:00 l TUNNEL TUNNEL 00:00: Bull SYNDROME SYNDROME 00 Inactive 04/18/2011 Condition 04/19/2013 [facility] RIGHT RIGHT Condition Inactiv 2010-042013-04-19 2013-04-19 Memoria CARPAL CARPAL e 04-16 11:19:00 11:19:00 l TUNNEL TUNNEL 00:00: Arp SYNDROME SYNDROME 00 Inactive 02/14/2011 Condition 04/19/2013 [facility] Allergies, Adverse Reactions, Alerts Allergy Allergy Status Severity Reaction(s) Onset Inactive Treating Comm ents Source Name Type Date Date Clinician Sulfa Drug Active Pt cannot [facility] (Sulfona Allergy 1-05 [facility]: reaction Medical Antibiot 00 Center ics) Sulfa Drug Active Pt cannot [facility] (Sulfona Allergy 1-05 [facility] 00:[facility]: reaction Medical Antibiot 00 Center ics) SULFA Allergy Active [facility] (SULFONA 1-05 [facility] 00:[facility]: Medical ANTIBIOT 00 Center ICS) Amoxicil Drug Active Shortness Of 2020- [facility] Allergy Breath 12-11 [facility] 00:[facility]: Medical 00 Center AMOXICIL Allergy Active High Sob [facility] 12-11 [facility] 00[facility]: Medical 00 Center AMOXICIL DRUG Active SOB [facility] COURTNEY INGREDI 12-11 ity of 00:00: [place] 00 Medical Branch Amoxicil Propensi Active Shortness of 2020- [facility] courtney ty to Breath 12-11 ity of adverse 00:00: [place] reaction 00 Medical s Branch Glipizid Drug Active Other (See Low low [facility] Allergy Comments) 12-18 bld sugar [facility]iel es 00:00: Medical 00 Center GLIPIZID Allergy Active High Other [facility] 12-18 [facility] 00:[facility]: Medical 00 [facility] NO KNOWN Allergy Active [facility] NO KNOWN Drug Active Univers ALLERGIE Class ity of S [facility] Social History Social Habit Start Date Stop Date Quantity Comments Source Alcohol intake 2021-12-02 2021-12-[address] Ezequiel es 00:00:00 00:00:00 non-drinker of Medical Ce nter alcohol (finding) Exposure to 2021-11-17 2021-11-27 Not sure University SARS-CoV-2 00:00:00 10:02:00 [place] [facility] (event) [facility] Tobacco use and 2015-03-02 2015-03-02 Smokeless tobacco [facility] exposure [facility]00:00 non-user Medical Center Sex Assigned At [birth year] [facility] R[facility] kes 00:00:00 00:00:00 Medical Center Smoking Status Start Date Stop Date Source Never smoked tobacco [facility] Medications Ordered Filled Start Stop Current Ordering Indication Dosage Frequency Signature Comments Components Source Medication Medication Date Date Medication? Clinician (SIG) Name Name furosemide Yes 20mg QD Take [address] (LASIX) 20 - by mouth [facility] MG tablet 09:49: daily. Medica l 34 Center hydroxychlo Yes rheumatoid QD Take by [facility] roquine 8-29 arthritis mouth [facility] (PLAQUENIL) 09:49: daily. Medi patrick 200 mg 34 Center tablet losartan Yes hypertensio 100mg QD Take [address] (COZAAR) 12-02 n mg by [facility] 100 MG 09:49: mouth Medical tablet 34 daily. Center glipiZIDE Yes type 2 5mg QD Take [address] (GLUCOTROL) - diabetes by mouth [facility] 5 MG tablet 09:49: mellitus daily . [facility] 34 Center gabapentin Yes neuropathic 300mg Q.[id number] Take [address] (NEURONTIN) 8- pain [id number] mg by L ukes 100 MG 09:49: 3D mouth 3 Medical capsule 34 (three) Center times daily PRN. albuterol Yes 3{puff} Inhale [address] HFA - puffs by [facility] (VENTOLIN 09:49: mouth via Med ical HFA) 90 34 inhaler 2 Center mcg/actuati (two) on inhaler times daily as needed for Wheezing. omeprazole Yes 40mg QD Take [address] (PRILOSEC) 8-29 by mouth [facility] 20 MG 09:49: daily. Medical capsule 34 [facility] divalproex Yes 500mg QD Take [address] (DEPAKOTE) 8-29 mg by [facility] 500 MG EC 09:49: mouth Medical tablet 34 daily At Center night . sertraline Yes 50mg QD Take [address] (ZOLOFT) 50 - by mouth Luke s MG tablet 09:49: daily. Medica l [address] [place] [address] amLODIPine Yes hypertensio 10mg QD Take [address] (NORVASC) 8-29 n by mouth [facility] 10 MG 09:49: daily. Medical tablet 34 [facility] simvastatin Yes 20mg QD Take [address] (ZOCOR) 20 12-02 by mouth [facility] MG tablet 09:49: nightly. Medi patrick 34 [facility] furosemide Yes 20mg QD Take [address] (LASIX) 20 12-02 by mouth [facility] MG tablet 09:49: daily. Medica l [address] [place] [address] hydroxychlo Yes rheumatoid QD Take by [facility] roquine - arthritis mouth [facility] (PLAQUENIL) 09:49: daily. [facility] patrick 200 mg 34 [facility] tablet losartan Yes hypertensio 100mg QD Take [address] (COZAAR) 8 n mg by [facility] 100 MG 09:49: mouth Medical tablet 34 daily. [facility] glipiZIDE Yes type 2 5mg QD Take [address] (GLUCOTROL) 12-02 diabetes by mouth [facility] 5 MG tablet 09:49: mellitus daily . [address] gabapentin Yes neuropathic 300mg Q.[id number] Take [address] (NEURONTIN) 8-29 pain [id number] mg by L ukes 100 MG 09:49: 3D mouth 3 Medical capsule 34 (three) Center times daily PRN. albuterol Yes 3{puff} Inhale [address] HFA 8-29 puffs by [facility] (VENTOLIN 09:49: mouth via Med ical HFA) 90 34 inhaler 2 [facility] mcg/actuati (two) on inhaler times daily as needed for Wheezing. omeprazole Yes 40mg QD Take [address] (PRILOSEC) 8-29 by mouth [facility] 20 MG 09:49: daily. Medical capsule 34 [facility] divalproex Yes 500mg QD Take [address] (DEPAKOTE) 8-29 mg by [facility] 500 MG EC 09:49: mouth Medical tablet 34 daily At Center night . sertraline Yes 50mg QD Take [address] (ZOLOFT) 50 8-29 by mouth Luke s MG tablet 09:49: daily. Medica l 34 [facility] potassium Yes 10meq Take [address] chloride 8-29 mEq by [facility] (KLOR-CON) 09:49: mouth as Med ical 10 MEQ CR 34 needed . [facility] tablet carvedilol Yes 25mg Take [address] (COREG) 8-29 by mouth 2 [facility] 12.5 MG 09:49: (two) Medical tablet 34 times Center daily with breakfast and dinner . pioglitazon Yes 15mg QD Take [address] [facility] (ACTOS) 8-29 by mouth [facility] 15 MG 09:49: daily . Medical tablet 34 [facility] potassium Yes 10meq Take [address] chloride 8-29 mEq by [facility] (KLOR-CON) 09:49: mouth as Med ical 10 MEQ CR 34 needed . [facility] tablet carvedilol Yes 25mg Take [address] (COREG) 8-29 by mouth 2 [facility] 12.5 MG 09:49: (two) Medical tablet 34 times [facility] daily with breakfast and dinner . pioglitazon Yes 15mg QD Take [address] [facility] (ACTOS) 8-29 by mouth [facility] 15 MG 09:49: daily . Medical tablet 34 [facility] amLODIPine Yes hypertensio 10mg QD Take [address] (NORVASC) 8-29 n by mouth [facility] 10 MG 09:49: daily. Medical tablet 34 [facility] simvastatin 0 Yes 20mg QD Take [address] (ZOCOR) 20 8-29 by mouth [facility] MG tablet 09:49: nightly. Medi patrick 34 [facility] furosemide Yes 20mg QD Take [address] (LASIX) 20 8-29 by mouth [facility] MG tablet 09:49: daily. Medica l 34 [facility] hydroxychlo Yes rheumatoid QD Take by [facility] roquine 8-29 arthritis mouth [facility] (PLAQUENIL) 09:49: daily. Medi patrick 200 mg 34 Center tablet losartan Yes hypertensio 100mg QD Take [address] (COZAAR) 8-29 n mg by [facility] 100 MG 09:49: mouth Medical tablet 34 daily. [facility] glipiZIDE Yes type 2 5mg QD Take [address] (GLUCOTROL) 8-29 diabetes by mouth [facility] 5 MG tablet 09:49: mellitus daily . Medical 34 [facility] gabapentin Yes neuropathic 300mg Q.[id number] Take [address] (NEURONTIN) 8- pain [id number] mg by L ukes 100 MG 09:49: 3D mouth 3 Medical capsule 34 (three) Center times daily PRN. albuterol Yes 3{puff} Inhale [address] HFA 8-29 puffs by [facility] (VENTOLIN 09:49: mouth via Med ical HFA) 90 34 inhaler 2 [facility] mcg/actuati (two) on inhaler times daily as needed for Wheezing. omeprazole Yes 40mg QD Take [address] (PRILOSEC) 8- by mouth [facility] 20 MG 09:49: daily. Medical capsule 34 [facility] divalproex Yes 500mg QD Take [address] (DEPAKOTE) 8-29 mg by [facility] 500 MG EC 09:49: mouth Medical tablet 34 daily At Center night . sertraline Yes 50mg QD Take [address] (ZOLOFT) 50 8-29 by mouth Luke s MG tablet 09:49: daily. Medica l 34 [facility] potassium Yes 10meq Take [address] chloride 8-29 mEq by [facility] (KLOR-CON) 09:49: mouth as Med ical 10 MEQ CR 34 needed . [facility] tablet carvedilol Yes 25mg Take [address] (COREG) 8-29 by mouth 2 [facility] 12.5 MG 09:49: (two) Medical tablet 34 times Center daily with breakfast and dinner . pioglitazon Yes 15mg QD Take [address] [facility] (ACTOS) 8-29 by mouth [facility] 15 MG 09:49: daily . Medical tablet 34 [facility] amLODIPine Yes hypertensio 10mg QD Take [address] (NORVASC) 8-29 n by mouth [facility] 10 MG 09:49: daily. Medical tablet 34 [facility] simvastatin Yes 20mg QD Take [address] (ZOCOR) 20 8-29 by mouth [facility] MG tablet 09:49: nightly. Medi patrick 34 [facility] furosemide Yes 20mg QD Take [address] (LASIX) 20 8-29 by mouth [facility] MG tablet 09:49: daily. Medica l 34 [facility] hydroxychlo Yes rheumatoid QD Take by [facility] roquine 8- arthritis mouth [facility] (PLAQUENIL) 09:49: daily. Medi patrick 200 mg 34 [facility] tablet losartan Yes hypertensio 100mg QD Take [address] (COZAAR) 8- n mg by [facility] 100 MG 09:49: mouth Medical tablet 34 daily. [facility] glipiZIDE Yes type 2 5mg QD Take [address] (GLUCOTROL) 8 diabetes by mouth [facility] 5 MG tablet 09:49: mellitus daily . [address] gabapentin Yes neuropathic 300mg Q.[id number] Take [address] (NEURONTIN) 8 pain [id number] mg by L ukes 100 MG 09:49: 3D mouth 3 Medical capsule 34 (three) Center times daily PRN. albuterol Yes 3{puff} Inhale [address] HFA 8-29 puffs by [facility] (VENTOLIN 09:49: mouth via Med ical HFA) 90 34 inhaler 2 [facility] mcg/actuati (two) on inhaler times daily as needed for Wheezing. omeprazole Yes 40mg QD Take [address] (PRILOSEC) 8-29 by mouth [facility] 20 MG 09:49: daily. Medical capsule 34 [facility] divalproex Yes 500mg QD Take [address] (DEPAKOTE) 8-29 mg by [facility] 500 MG EC 09:49: mouth Medical tablet 34 daily At Center night . sertraline Yes 50mg QD Take [address] (ZOLOFT) 50 8- by mouth Luke s MG tablet 09:49: daily. Medica l 34 [facility] potassium Yes 10meq Take [address] chloride 8-29 mEq by [facility] (KLOR-CON) 09:49: mouth as Med ical 10 MEQ CR 34 needed . [facility] tablet carvedilol Yes 25mg Take [address] (COREG) 8- by mouth 2 [facility] 12.5 MG 09:49: (two) Medical tablet 34 times Center daily with breakfast and dinner . pioglitazon Yes 15mg QD Take [address] [facility] (ACTOS) 8- by mouth [facility] 15 MG 09:49: daily . Medical tablet 34 [facility] amLODIPine Yes hypertensio 10mg QD Take [address] (NORVASC) 8- n by mouth [facility] 10 MG 09:49: daily. Medical tablet 34 [facility] simvastatin Yes 20mg QD Take [address] (ZOCOR) 20 8 by mouth [facility] MG tablet 09:49: nightly. Medi patrick 34 [facility] furosemide Yes 20mg QD Take [address] (LASIX) 20 8- by mouth [facility] MG tablet 09:49: daily. Medica l 34 [facility] hydroxychlo Yes rheumatoid QD Take by [facility] roquine 8- arthritis mouth [facility] (PLAQUENIL) 09:49: daily. Medi patrick 200 mg 34 [facility] tablet losartan Yes hypertensio 100mg QD Take [address] (COZAAR) 8- n mg by [facility] 100 MG 09:49: mouth Medical tablet 34 daily. [facility] glipiZIDE Yes type 2 5mg QD Take [address] (GLUCOTROL) - diabetes by mouth [facility] 5 MG tablet 09:49: mellitus daily . [address] gabapentin Yes neuropathic 300mg Q.[id number] Take [address] (NEURONTIN) 8- pain [id number] mg by L ukes 100 MG 09:49: 3D mouth 3 Medical capsule 34 (three) Center times daily PRN. albuterol Yes 3{puff} Inhale [address] HFA 8-29 puffs by [facility] (VENTOLIN 09:49: mouth via Med ical HFA) 90 34 inhaler 2 [facility] mcg/actuati (two) on inhaler times daily as needed for Wheezing. omeprazole Yes 40mg QD Take [address] (PRILOSEC) 8-29 by mouth [facility] 20 MG 09:49: daily. Medical capsule 34 [facility] divalproex Yes 500mg QD Take [address] (DEPAKOTE) 8-29 mg by [facility] 500 MG EC 09:49: mouth Medical tablet 34 daily At Center night . sertraline Yes 50mg QD Take [address] (ZOLOFT) 50 8-29 by mouth Luke s MG tablet 09:49: daily. Medica l 34 [facility] potassium Yes 10meq Take [address] chloride 8-29 mEq by [facility] (KLOR-CON) 09:49: mouth as Med ical 10 MEQ CR 34 needed . Center tablet carvedilol Yes 25mg Take [address] (COREG) 8-29 by mouth 2 [facility] 12.5 MG 09:49: (two) Medical tablet 34 times Center daily with breakfast and dinner . pioglitazon Yes 15mg QD Take [address] [facility] (ACTOS) 8-29 by mouth [facility] 15 MG 09:49: daily . Medical tablet 34 [facility] amLODIPine Yes hypertensio 10mg QD Take [address] (NORVASC) 8-29 n by mouth [facility] 10 MG 09:49: daily. Medical tablet 34 [facility] simvastatin Yes 20mg QD Take [address] (ZOCOR) 20 8-29 by mouth [facility] MG tablet 09:49: nightly. Medi patrick 34 [facility] furosemide Yes 20mg QD Take [address] (LASIX) 20 8-29 by mouth [facility] MG tablet 09:49: daily. Medica l 34 [facility] hydroxychlo Yes rheumatoid QD Take by [facility] roquine 8-29 arthritis mouth [facility] (PLAQUENIL) 09:49: daily. Medi patrick 200 mg 34 [facility] tablet losartan Yes hypertensio 100mg QD Take [address] (COZAAR) 8-29 n mg by [facility] 100 MG 09:49: mouth Medical tablet 34 daily. [facility] glipiZIDE Yes type 2 5mg QD Take [address] (GLUCOTROL) 8-29 diabetes by mouth [facility] 5 MG tablet 09:49: mellitus daily . [address] gabapentin Yes neuropathic 300mg Q.[id number] Take [address] (NEURONTIN) 8-29 pain [id number] mg by L ukes 100 MG 09:49: 3D mouth 3 Medical capsule 34 (three) Center times daily PRN. albuterol Yes 3{puff} Inhale [address] HFA 8-29 puffs by [facility] (VENTOLIN 09:49: mouth via Med ical HFA) 90 34 inhaler 2 [facility] mcg/actuati (two) on inhaler times daily as needed for Wheezing. omeprazole Yes 40mg QD Take [address] (PRILOSEC) 8-29 by mouth [facility] 20 MG 09:49: daily. Medical capsule 34 [facility] divalproex Yes 500mg QD Take [address] (DEPAKOTE) 8-29 mg by [facility] 500 MG EC 09:49: mouth Medical tablet 34 daily At Center night . sertraline Yes 50mg QD Take [address] (ZOLOFT) 50 8-29 by mouth Luke s MG tablet 09:49: daily. Medica l 34 [facility] potassium Yes 10meq Take [address] chloride 8-29 mEq by [facility] (KLOR-CON) 09:49: mouth as Med ical 10 MEQ CR 34 needed . [facility] tablet carvedilol Yes 25mg Take [address] (COREG) 8-29 by mouth 2 [facility] 12.5 MG 09:49: (two) Medical tablet 34 times Center daily with breakfast and dinner . pioglitazon Yes 15mg QD Take [address] [facility] (ACTOS) 8-29 by mouth [facility] 15 MG 09:49: daily . Medical tablet 34 [facility] amLODIPine Yes hypertensio 10mg QD Take [address] (NORVASC) 8-29 n by mouth [facility] 10 MG 09:49: daily. [facility] tablet 34 [facility] simvastatin 2021-0 Yes 20mg QD Take [address] (ZOCOR) 20 8-29 by mouth [facility] MG tablet 09:49: nightly. [facility] 34 [facility] DULoxetine 0 Yes 20mg QD Take [address] (CYMBALTA) 5-27 by mouth [facility] 20 MG 00:00: daily. Medical capsule 00 [facility] DULoxetine 0 Yes 20mg QD Take [address] (CYMBALTA) 5-27 by mouth [facility] 20 MG 00:00: daily. Medical capsule 00 [facility] DULoxetine 0 Yes 20mg QD Take [address] (CYMBALTA) 5-27 by mouth [facility] 20 MG 00:00: daily. Medical capsule 00 [facility] DULoxetine 2021-0 Yes 20mg QD Take [address] (CYMBALTA) 5-27 by mouth [facility] 20 MG 00:00: daily. [facility] capsule [address] [place] [address] DULoxetine 2021-0 Yes 20mg QD Take [address] (CYMBALTA) 5-27 by mouth [facility] 20 MG 00:00: daily. [facility] capsule 00 [facility] DULoxetine 0 Yes 20mg QD Take [address] (CYMBALTA) 5-27 by mouth [facility] 20 MG 00:00: daily. Medical capsule [address] [place] [address] torsemide 2021-0 Yes 20mg Take [address] (DEMADEX) 5-18 by mouth [facility] 20 MG 00:00: every 3 Medical tablet 00 (three) Center days. torsemide 2-0 Yes 20mg Take [address] (DEMADEX) 5-18 by mouth [facility] 20 MG 00:00: every 3 Medical tablet 00 (three) Center days. torsemide 2021-0 Yes 20mg Take [address] (DEMADEX) 5-18 by mouth [facility] 20 MG 00:00: every 3 Medical tablet 00 (three) Center days. torsemide 2-0 Yes 20mg Take [address] (DEMADEX) 5-18 by mouth [facility] 20 MG 00:00: every 3 Medical tablet 00 (three) Center days. torsemide 2022-0 Yes 20mg Take [address] (DEMADEX) 5-18 by mouth [facility] 20 MG 00:00: every 3 Medical tablet 00 (three) Center days. torsemide Yes 20mg Take [address] (DEMADEX) 5-18 by mouth [facility] 20 MG 00:00: every 3 Medical tablet 00 (three) Center days. fluticasone Yes 1{puff} QD Inhale [address] furoate-tanya 3-01 puff by [facility] anteroL 00:00: mouth via Medic al (Breo inhaler Center Ellipta) daily. 200-25 mcg/dose DsDv atorvastati Yes 1{tbl} QD Take [address] n (LIPITOR) 3-01 tablet by [facility] es 40 MG 00:00: mouth Medical tablet 00 daily. Center fluticasone Yes 1{puff} QD Inhale [address] furoate-tanya 3-01 puff by [facility] anteroL 00:00: mouth via Medic al (Breo inhaler Center Ellipta) daily. 200-25 mcg/dose DsDv atorvastati Yes 1{tbl} QD Take [address] n (LIPITOR) 3-01 tablet by [facility] es 40 MG 00:00: mouth Medical tablet 00 daily. Center fluticasone Yes 1{puff} QD Inhale [address] furoate-tanya 3-01 puff by [facility] anteroL 00:00: mouth via Medic al (Breo inhaler Center Ellipta) daily. 200-25 mcg/dose DsDv atorvastati Yes 1{tbl} QD Take [address] n (LIPITOR) 3-01 tablet by [facility] es 40 MG 00:00: mouth Medical tablet 00 daily. Center fluticasone 0 Yes 1{puff} QD Inhale [address] furoate-tanya 3-01 puff by [facility] anteroL 00:00: mouth via Medic al (Breo inhaler Center Ellipta) daily. 200-25 mcg/dose DsDv atorvastati Yes 1{tbl} QD Take [address] n (LIPITOR) 3-01 tablet by Ez[facility]iel es 40 MG 00:00: mouth Medical tablet 00 daily. Center fluticasone Yes 1{puff} QD Inhale [address] furoate-tanya 3-01 puff by [facility] anteroL 00:00: mouth via Medic al (Breo 00 inhaler Center Ellipta) daily. 200-25 mcg/dose DsDv atorvastati Yes 1{tbl} QD Take [address] n (LIPITOR) 3-01 tablet by [facility]iel es 40 MG 00:00: mouth Medical tablet 00 daily. [facility] fluticasone Yes 1{puff} QD Inhale [address] furoate-tanya 3-01 puff by [facility] anteroL 00:00: mouth via Medic al (Breo 00 inhaler Center Ellipta) daily. 200-25 mcg/dose DsDv atorvastati Yes 1{tbl} QD Take [address] n (LIPITOR) 3-01 tablet by [facility] es 40 MG 00:00: mouth Medical tablet 00 daily. [facility] AMLODIPINE Yes [id number] Take 1 Un julio 10 mg 1-18 tablet by ity of tablet 00:00: mouth once [place] [id number] daily [facility] AMLODIPINE Yes [id number] Take 1 Un julio 10 mg 1-18 tablet by ity of tablet 00:00: mouth once [address] maalox:diph No 15mL 15 mL, Uni vers enhydrAMINE 12-11 Oral, ity of :lidocaine 07:30: 06:48 ONCE, 1 Fausto as 2 % viscous 00 :00 dose, [facility] ical 1:1:1 12/11/20 at [facility] ([facility] 0230, [facility]) Routine oral suspension 15 mL albuterol 2020- No 6{puff} 6 Puff, U nivers (VENTOLIN) 12-11 Inhalation it y of inhaler 6 07:30: 07:02 , [place], [place] Puff 00 :00 dose, [facility] Medical 12/11/20 at [facility] 0230, [place] NaCl 0.9% 2020- No 1000mL at 999 Uni vers (NS) bolus 12-11 mL/hr, ity of infusion 07:30: 07:44 1,000 mL, [place] as 1,000 mL 00 :00 IV Medical Piggyback, Branch ONCE, 1 dose, 12/11/20 at 0230, STAT acetaminoph No 1000mg 1,000 mg, Univers en 12-11 Oral, ity of (TYLENOL) 07:30: 06:30 [place] :[place] dose, [facility] 1,000 mg 12/11/20 at [facility] 0230, Routine maalox:diph 2020- No 15mL 15 mL, Uni vers enhydrAMINE 12-11 Oral, ity of :lidocaine 07:30: 06:48 ONCE, 1 [place] 2 % viscous 00 :00 dose, [facility] Med ical 1:1:1 12/11/20 at [facility] (FIRST-MOUT 0230, HWASH BLM) Routine oral suspension 15 mL albuterol 2020- No 6{puff} 6 Puff, U nivers (VENTOLIN) 12-11 Inhalation it y of inhaler 6 07:30: 07:02 , [place] 1 [place] Puff 00 :00 dose, [facility] 12/11/20 at [facility] 0230, CAITLIN NaCl 0.9% No 1000mL at 999 Uni vers (NS) bolus 12-11 mL/hr, ity of infusion 07:30: 07:44 1,000 mL, [place] 1,000 mL 00 :00 IV [facility] ONCE, 1 dose, 12/11/20 at 0230, STAT acetaminoph No 1000mg 1,000 mg, Univers en 12-11 Oral, ity of (TYLENOL) 07:30: 06:30 ONCE, [place] tablet 00 :00 dose, [facility] 1,000 mg 12/11/20 [address] [facility] 0230, Routine ondansetron Yes [id number] 4mg Take 1 Univers 4 mg 12-11 tablet by ity of disintegrat 00:00: mouth [place] ing tablet 00 every 8 Medica l (eight) Branch hours as needed for Nausea and Vomiting (N/V). albuterol Yes [id number] 6{puff} Inhale 6 Univers 90 9-07 Puffs ity of mcg/actuati 00:00: every 4 [place] on inhaler 00 (four) Medical hours as Branch needed for Wheezing or Shortness of Breath. benzonatate 2020-0 Yes [id number] 100mg Take 1 [facility] 100 mg 9-07 capsule by ity of capsule 00:00: mouth 3 [place] 00 (three) Medical times Branch daily as needed for Cough. ondansetron 2020-0 Yes [id number] 4mg Take 1 [facility] 4 mg 9-07 tablet by ity of disintegrat 00:00: mouth [place] ing tablet 00 every 8 Medica l (eight) Branch hours as needed for Nausea and Vomiting (N/V). albuterol 2020-0 Yes [id number] 6{puff} Inhale 6 [facility] 90 9-07 Puffs ity of mcg/actuati 00:00: every 4 [place] on inhaler 00 (four) Medical hours as Branch needed for Wheezing or Shortness of Breath. benzonatate 2020-0 Yes [id number] 100mg Take 1 [facility] 100 mg 9-07 capsule by ity of capsule 00:00: mouth 3 [place] 00 (three) Medical times Branch daily as needed for Cough. ondansetron 2020-0 Yes [id number] 4mg Take 1 [facility] 4 mg 9-07 tablet by ity of disintegrat 00:00: mouth [place] ing tablet 00 every 8 Medica l (eight) Branch hours as needed for Nausea and Vomiting (N/V). albuterol 2020-0 Yes [id number] 6{puff} Inhale 6 [facility] 90 9-07 Puffs ity of mcg/actuati 00:00: every 4 [place] on inhaler 00 (four) Medical hours as Branch needed for Wheezing or Shortness of Breath. benzonatate 2020-0 Yes [id number] 100mg Take 1 [facility] 100 mg 9-07 capsule by ity of capsule 00:00: mouth 3 [place] 00 (three) Medical times Branch daily as needed for Cough. ondansetron 2020-0 Yes [id number] 4mg Take 1 [facility] 4 mg 9-07 tablet by ity of disintegrat 00:00: mouth [place] ing tablet 00 every 8 Medica l (eight) Branch hours as needed for Nausea and Vomiting (N/V). albuterol 2020-0 Yes [id number] 6{puff} Inhale 6 [facility] 90 9-07 Puffs ity of mcg/actuati 00:00: every 4 [place] on inhaler 00 (four) Medical hours as Branch needed for Wheezing or Shortness of Breath. benzonatate 2020-0 Yes [id number] 100mg Take 1 [facility] 100 mg 9-07 capsule by ity of capsule 00:00: mouth 3 [place] 00 (three) Medical times Branch daily as needed for Cough. ondansetron 2020-0 Yes [id number] 4mg Take 1 [facility] 4 mg 9-07 tablet by ity of disintegrat 00:00: mouth [place] ing tablet 00 every 8 Medica l (eight) Branch hours as needed for Nausea and Vomiting (N/V). albuterol 0 Yes [id number] 6{puff} Inhale 6 [facility] 90 9-07 Puffs ity of mcg/actuati 00:00: every 4 [place] on inhaler 00 (four) Medical hours as Branch needed for Wheezing or Shortness of Breath. benzonatate 0 Yes [id number] 100mg Take 1 [facility] 100 mg 9-07 capsule by ity of capsule 00:00: mouth 3 [place] 00 (three) Medical times Branch daily as needed for Cough. ondansetron 0 Yes [id number] 4mg Take 1 Univers 4 mg 9-07 tablet by ity of disintegrat 00:00: mouth [place] ing tablet 00 every 8 Medica l (eight) Branch hours as needed for Nausea and Vomiting (N/V). albuterol 2020-0 Yes [id number] 6{puff} Inhale 6 [facility] 90 9-07 Puffs ity of mcg/actuati 00:00: every 4 [place] on inhaler 00 (four) Medical hours as Branch needed for Wheezing or Shortness of Breath. benzonatate 2020-0 Yes [id number] 100mg Take 1 Univers 100 mg 9-07 capsule by ity of capsule 00:00: mouth 3 [place] 00 (three) Medical times Branch daily as needed for Cough. ondansetron 2020-0 Yes [id number] 4mg Take 1 Univers 4 mg 9-07 tablet by ity of disintegrat 00:00: mouth [place] ing tablet 00 every 8 Medica l (eight) Branch hours as needed for Nausea and Vomiting (N/V). albuterol 2020-0 Yes [id number] 6{puff} Inhale 6 Univers 90 9-07 Puffs ity of mcg/actuati 00:00: every 4 [place] on inhaler 00 (four) Medical hours as Branch needed for Wheezing or Shortness of Breath. benzonatate 2020-0 Yes [id number] 100mg Take 1 [facility] 100 mg 9-07 capsule by ity of capsule 00:00: mouth 3 [place] 00 (three) Medical times Branch daily as needed for Cough. ondansetron 2020-0 Yes [id number] 4mg Take 1 Univers 4 mg 9-07 tablet by ity of disintegrat 00:00: mouth [place] ing tablet 00 every 8 Medica l (eight) Branch hours as needed for Nausea and Vomiting (N/V). albuterol 2020-0 Yes [id number] 6{puff} Inhale 6 [facility] 90 9-07 Puffs ity of mcg/actuati 00:00: every 4 [place] on inhaler 00 (four) Medical hours as Branch needed for Wheezing or Shortness of Breath. benzonatate 0 Yes [id number] 100mg Take 1 [facility] 100 mg 9-07 capsule by ity of capsule 00:00: mouth 3 [place] 00 (three) Medical times Branch daily as needed for Cough. ondansetron 2020-0 Yes [id number] 4mg Take 1 [facility] 4 mg 9-07 tablet by ity of disintegrat 00:00: mouth [place] ing tablet 00 every 8 Medica l (eight) Branch hours as needed for Nausea and Vomiting (N/V). albuterol 2020-0 Yes [id number] 6{puff} Inhale 6 [facility] 90 9-07 Puffs ity of mcg/actuati 00:00: every 4 [place] on inhaler 00 (four) Medical hours as Branch needed for Wheezing or Shortness of Breath. benzonatate 2020-0 Yes [id number] 100mg Take 1 [facility] 100 mg 9-07 capsule by ity of capsule 00:00: mouth 3 [place] 00 (three) Medical times Branch daily as needed for Cough. ondansetron 2020-0 Yes [id number] 4mg Take 1 Univers 4 mg 9-07 tablet by ity of disintegrat 00:00: mouth [place] ing tablet 00 every 8 Medica l (eight) Branch hours as needed for Nausea and Vomiting (N/V). albuterol 2021-0 Yes [id number] 6{puff} Inhale 6 [facility] 90 9-07 Puffs ity of mcg/actuati 00:00: every 4 [place] on inhaler 00 (four) Medical hours as Branch needed for Wheezing or Shortness of Breath. benzonatate 2021-0 Yes [id number] 100mg Take 1 Univers 100 mg 9-07 capsule by ity of capsule 00:00: mouth 3 [place] 00 (three) Medical times Branch daily as needed for Cough. ondansetron 2021-0 Yes [id number] 4mg Take 1 Univers 4 mg 9-07 tablet by ity of disintegrat 00:00: mouth [place] ing tablet 00 every 8 Medica l (eight) Branch hours as needed for Nausea and Vomiting (N/V). albuterol 2021-0 Yes [id number] 6{puff} Inhale 6 Univers 90 9-07 Puffs ity of mcg/actuati 00:00: every 4 [place] on inhaler 00 (four) Medical hours as Branch needed for Wheezing or Shortness of Breath. benzonatate 1-0 Yes [id number] 100mg Take 1 Univers 100 mg 9-07 capsule by ity of capsule 00:00: mouth 3 [place] 00 (three) Medical times Branch daily as needed for Cough. carvediloL 2021-0 Yes 25mg Take 25 mg U nivers (COREG) 25 7-23 by mouth 2 ity of mg tablet 21:40: (two) [place] 12 times Medical daily with Branch meals. carvediloL 2021-0 Yes 25mg Take 25 mg U nivers (COREG) 25 7-23 by mouth 2 ity of mg tablet 21:40: (two) [place] 12 times Medical daily with Branch meals. carvediloL 2021-0 Yes 25mg Take 25 mg U nivers (COREG) 25 7-23 by mouth 2 ity of mg tablet 21:40: (two) [place] 12 times Medical daily with Branch meals. carvediloL 2021-0 Yes 25mg Take 25 mg U nivers (COREG) 25 7-23 by mouth 2 ity of mg tablet 21:40: (two) [place] 12 times Medical daily with Branch meals. carvediloL 2021-0 Yes 25mg Take 25 mg U nivers (COREG) 25 7-23 by mouth 2 ity of mg tablet 21:40: (two) [place] 12 times Medical daily with Branch meals. carvediloL 2021-0 Yes 25mg Take 25 mg U nivers (COREG) 25 7-23 by mouth 2 ity of mg tablet 21:40: (two) [place] 12 times Medical daily with Branch meals. carvediloL 2021-0 Yes 25mg Take 25 mg U nivers (COREG) 25 7-23 by mouth 2 ity of mg tablet 21:40: (two) [place] 12 times Medical daily with Branch meals. carvediloL 2021-0 Yes 25mg Take 25 mg U nivers (COREG) 25 7-23 by mouth 2 ity of mg tablet 16:40: (two) [place] 12 times Medical daily with Branch meals. carvediloL 2021-0 Yes 25mg Take 25 mg U nivers (COREG) 25 7-23 by mouth 2 ity of mg tablet 16:40: (two) [place] 12 times Medical daily with Branch meals. carvediloL 2021-0 Yes 25mg Take 25 mg U nivers (COREG) 25 7-23 by mouth 2 ity of mg tablet 16:40: (two) [place] 12 times Medical daily with Branch meals. carvediloL 2021-0 Yes 25mg Take 25 mg U nivers (COREG) 25 7-23 by mouth 2 ity of mg tablet 16:40: (two) [place] 12 times Medical daily with Branch meals. carvediloL 2021-0 Yes 25mg Take 25 mg U nivers (COREG) 25 7-23 by mouth 2 ity of mg tablet 16:40: (two) [place] 12 times Medical daily with Branch meals. carvediloL 2021-0 Yes 25mg Take 25 mg U nivers (COREG) 25 7-23 by mouth 2 ity of mg tablet 16:40: (two) [place] 12 times Medical daily with Branch meals. carvediloL 2021-0 Yes 25mg Take 25 mg U nivers (COREG) 25 7-23 by mouth 2 ity of mg tablet 16:40: (two) [place] 12 times Medical daily with Branch meals. amLODIPine 2021-0 Yes [id number] 10mg Take 1 [place] 10 mg 7-23 tablet by ity of tablet 00:00: mouth [place] 00 daily. Medical Branch amLODIPine 2020-0 Yes [id number] 10mg Take 1 [place] 10 mg 7-23 tablet by ity of tablet 00:00: mouth [place] 00 daily. Medical Branch amLODIPine 2020-0 Yes [id number] 10mg Take 1 [place] 10 mg 7-23 tablet by ity of tablet 00:00: mouth [place] 00 daily. Medical Branch amLODIPine 2020-0 Yes [id number] 10mg Take 1 [place] 10 mg 7-23 tablet by ity of tablet 00:00: mouth [place] 00 daily. Medical Branch amLODIPine 2020-0 Yes [id number] 10mg Take 1 [place] 10 mg 7-23 tablet by ity of tablet 00:00: mouth [place] 00 daily. Medical Branch amLODIPine 2020-0 Yes [id number] 10mg Take 1 [place] 10 mg 7-23 tablet by ity of tablet 00:00: mouth [place] 00 daily. Medical Branch amLODIPine 2020-0 Yes [id number] 10mg Take 1 [place] 10 mg 7-23 tablet by ity of tablet 00:00: mouth [place] 00 daily. Medical Branch amLODIPine 2020-0 Yes [id number] 10mg Take 1 [place] 10 mg 7-23 tablet by ity of tablet 00:00: mouth [place] 00 daily. Medical Branch amLODIPine 2020-0 Yes [id number] 10mg Take 1 [place] 10 mg 7-23 tablet by ity of tablet 00:00: mouth [place] 00 daily. Medical Branch amLODIPine 2020-0 Yes [id number] 10mg Take 1 [place] 10 mg 7-23 tablet by ity of tablet 00:00: mouth [place] 00 daily. Medical Branch amLODIPine 2020-0 Yes [id number] 10mg Take 1 [place] 10 mg 7-23 tablet by ity of tablet 00:00: mouth [place] 00 daily. Medical Branch amLODIPine 2020-0 Yes [id number] 10mg Take 1 [place] 10 mg 7-23 tablet by ity of tablet 00:00: mouth [place] 00 daily. Medical Branch amLODIPine 1-0 2- No [id number] 10mg Take 1 U nivers 10 mg 7-23 01-18 tablet by ity of tablet 00:00: 00:00 mouth [place] 00 :00 daily. Medical Branch gabapentin 2020-0 Yes Take by Univ ers ER 300 mg 7-06 mouth ity of tablet, 15:13: daily. [place] extended 54 Medical release 24 Branch hr gabapentin 2021-0 Yes Take by Univ ers ER 300 mg 7-06 mouth ity of tablet, 15:13: daily. [place] extended 54 Medical release 24 Branch hr gabapentin 2021-0 Yes Take by Univ ers ER 300 mg 7-06 mouth ity of tablet, 15:13: daily. [place] extended 54 Medical release 24 Branch hr gabapentin 2021-0 Yes Take by Univ ers ER 300 mg 7-06 mouth ity of tablet, 15:13: daily. [place] extended 54 Medical release 24 Branch hr gabapentin 2021-0 Yes Take by Univ ers ER 300 mg 7-06 mouth ity of tablet, 15:13: daily. [place] extended 54 Medical release 24 Branch hr gabapentin 2021-0 Yes Take by Univ ers ER 300 mg 7-06 mouth ity of tablet, 15:13: daily. [place] extended 54 Medical release 24 Branch hr gabapentin 2021-0 Yes Take by Univ ers ER 300 mg 7-06 mouth ity of tablet, 15:13: daily. [place] extended 54 Medical release 24 Branch hr gabapentin 2021-0 Yes Take by Univ ers ER 300 mg 7-06 mouth ity of tablet, 15:13: daily. [place] extended 54 Medical release 24 Branch hr gabapentin 2021-0 Yes Take by Univ ers ER 300 mg 7-06 mouth ity of tablet, 15:13: daily. [place] extended 54 Medical release 24 Branch hr gabapentin 2021-0 Yes Take by Univ ers ER 300 mg 7-06 mouth ity of tablet, 15:13: daily. [place] extended 54 Medical release 24 Branch hr gabapentin 2021-0 Yes Take by Univ ers ER 300 mg 7-06 mouth ity of tablet, 15:13: daily. [place] extended 54 Medical release 24 Branch hr gabapentin 2021-0 Yes Take by Univ ers ER 300 mg 7-06 mouth ity of tablet, 10:13: daily. [place] extended 54 Medical release 24 Branch hr gabapentin 2021-0 Yes Take by Univ ers ER 300 mg 7-06 mouth ity of tablet, 10:13: daily. [place] extended 54 Medical release 24 Branch hr gabapentin 2021-0 Yes Take by Univ ers ER 300 mg 7-06 mouth ity of tablet, 10:13: daily. [place] extended 54 Medical release 24 Branch hr gabapentin 2021-0 Yes Take by Univ ers ER 300 mg 7-06 mouth ity of tablet, 10:13: daily. [place] extended 54 Medical release 24 Branch hr gabapentin 1-0 Yes Take by [facility] ers ER 300 mg 7-06 mouth ity of tablet, 10:13: daily. [place] extended 54 Medical release 24 Branch hr gabapentin 2021-0 Yes Take by Univ ers ER 300 mg 7-06 mouth ity of tablet, 10:13: daily. [place] extended 54 Medical release 24 Branch hr gabapentin 1-0 Yes Take by [facility] ers ER 300 mg 7-06 mouth ity of tablet, 10:13: daily. [place] extended 54 Medical release 24 Branch hr predniSONE 1-0 Yes 5mg Take 5 mg [place] 5 mg tablet 6-30 by mouth ity of 00:00: daily. [place] [address] Medical Branch torsemide 1-0 Yes 10mg Take 10 mg [place] 20 mg 6-30 by mouth 3 ity of tablet 00:00: (three) [place] 00 times Medical daily. Branch predniSONE 1-0 Yes 5mg Take 5 mg [place] 5 mg tablet 6-30 by mouth ity of 00:00: daily. [place] [address] Medical Branch torsemide 2021-0 Yes 20mg Take 20 mg [place] 20 mg 6-30 by mouth ity of tablet 00:00: daily. [place] [address] Medical Branch predniSONE 2021-0 Yes 5mg Take 5 mg [place] 5 mg tablet 6-30 by mouth ity of 00:00: daily. [place] [address] Medical Branch torsemide 2021-0 Yes 20mg Take 20 mg [place] 20 mg 6-30 by mouth ity of tablet 00:00: daily. [place] [address] Medical Branch predniSONE 2021-0 Yes 5mg Take 5 mg [place] 5 mg tablet 6-30 by mouth ity of 00:00: daily. [place] [address] Medical Branch torsemide 2021-0 Yes 20mg Take 20 mg [place] 20 mg 6-30 by mouth ity of tablet 00:00: daily. [place] [address] Medical Branch predniSONE 2021-0 Yes 5mg Take 5 mg [place] 5 mg tablet 6-30 by mouth ity of 00:00: daily. [place] [address] Medical Branch torsemide 2021-0 Yes 20mg Take 20 mg [place] 20 mg 6-30 by mouth ity of tablet 00:00: daily. [place] [address] Medical Branch predniSONE 2021-0 Yes 5mg Take [...] mouth 3 ity of tablet 00:00: (three) [place] 00 times Medical daily. Branch predniSONE 2021-0 [...] mouth 3 ity of tablet 00:00: (three) [place] 00 times Medical daily. Branch predniSONE 2021-0 Yes 5mg Take 5 mg [place] 5 mg tablet 6-30 by mouth ity of 00:00: daily. Medical Branch torsemide 2021-0 Yes 10mg Take 10 mg [place] 20 mg 6-30 by mouth 3 ity of tablet 00:00: (three) [place] 00 times Medical daily. Branch predniSONE 2021-0 [...] mouth 3 ity of tablet 00:00: (three) [place] 00 times Medical daily. Branch albuterol 2021-0 Yes INHALE 2 Univ ers 90 6-25 [...] INTO ity of ophthalmic 00:00: EACH EYE [place] as drops 00 TWICE Medical DAILY Branch RESTASIS 0 Yes INSTILL 1 Univ ers 0.05 % 6-02 DROP INTO ity of ophthalmic 00:00: EACH EYE [place] drops 00 TWICE Medical DAILY Branch RESTASIS 0 Yes INSTILL 1 Univ ers 0.05 % 6-02 DROP INTO ity of ophthalmic 00:00: EACH EYE [place] drops 00 TWICE Medical DAILY Branch baclofen 10 0 Yes 10mg Take 10 mg Univers mg tablet 4-28 by mouth 3 ity of 00:00: (three) [place] 00 times Medical daily. Branch baclofen 10 0 Yes 10mg Take 10 mg Univers mg tablet 4-28 by mouth 3 ity of 00:00: (three) [place] 00 times Medical daily. Branch baclofen 10 0 Yes 10mg Take 10 mg Univers mg [...] 00 times Medical daily. Branch baclofen 10 0 Yes 10mg Take 10 mg Univers mg tablet 4-28 by mouth 3 ity of 00:00: (three) [place] 00 times Medical daily. Branch baclofen 10 2020-0 Yes 10mg Take 10 mg Univers mg tablet 4-28 by mouth 3 ity of 00:00: (three) [place] 00 times Medical daily. Branch baclofen 10 0 Yes 10mg Take 10 mg Univers mg tablet 4-28 by mouth 3 ity of 00:00: (three) [place] 00 times Medical daily. Branch baclofen 10 0 Yes 10mg Take 10 mg Univers mg tablet 4-28 by mouth 3 ity of 00:00: (three) [place] 00 times Medical daily. Branch baclofen 10 0 Yes 10mg Take 10 mg Univers mg tablet 4-28 by mouth 3 ity of 00:00: (three) [place] 00 times Medical daily. Branch baclofen 10 0 Yes 10mg Take 10 mg Univers mg [...] by mouth ity of tablet 00:00: daily. [facility] Branch pioglitazon Yes 15mg Take 15 mg Univers e 15 mg 4-23 by mouth ity of tablet 00:00: daily. [facility] pioglitazon Yes 15mg Take 15 mg Univers e 15 mg 4-23 by mouth ity of tablet 00:00: daily. [facility] pioglitazon Yes 15mg Take 15 mg Univers e 15 mg 4-23 by mouth ity of tablet 00:00: daily. [facility] pioglitazon Yes 15mg Take 15 mg Univers e 15 mg 4-23 by mouth ity of tablet 00:00: daily. [facility] pioglitazon Yes 15mg Take 15 mg Univers e 15 mg 4-23 by mouth ity of tablet 00:00: daily. [facility] pioglitazon Yes 15mg Take 15 mg Univers e 15 mg 4-23 by mouth ity of tablet 00:00: daily. [facility] pioglitazon Yes 15mg Take 15 mg Univers e 15 mg 4-23 by mouth ity of tablet 00:00: daily. [facility] pioglitazon Yes 15mg Take 15 mg Univers e 15 mg 4-23 by mouth ity of tablet 00:00: daily. [facility] pioglitazon Yes 15mg Take 15 mg Univers e 15 mg 4-23 by mouth ity of tablet 00:00: daily. [facility] pioglitazon Yes 15mg Take 15 mg Univers e 15 mg 4-23 by mouth ity of tablet 00:00: daily. [facility] pioglitazon Yes 15mg Take 15 mg Univers e 15 mg 4-23 by mouth ity of tablet 00:00: daily. [facility] pioglitazon Yes 15mg Take 15 mg Univers e 15 mg 4-23 by mouth ity of tablet 00:00: daily. [place] [facility] divalproex 2014 Yes 500mg Take 500 Un [facility]io ER [...] 00:00: mouth [place] 200 mg 00 daily. [facility] tablet Branch SERTraline 2014-04 Yes 50mg Take 50 mg U nivers (ZOLOFT) 50 0-13 by mouth ity of mg tablet 00:00: daily. [place] [facility] SERTraline 2014-04 Yes 50mg Take 50 mg U nivers (ZOLOFT) 50 0-13 by mouth ity of mg tablet 00:00: daily. [facility] Branch SERTraline 2014-04 Yes 50mg Take 50 mg U nivers (ZOLOFT) 50 0-13 by mouth ity of mg tablet 00:00: daily. [facility] Branch SERTraline 2014-04 Yes 50mg Take 50 mg U nivers (ZOLOFT) 50 0-13 by mouth ity of mg tablet 00:00: daily. [facility] Branch SERTraline 2014-04 Yes 50mg Take 50 mg U nivers (ZOLOFT) 50 0-13 by mouth ity of mg tablet 00:00: daily. [facility] SERTraline 2014-04 Yes 50mg Take 50 mg U nivers (ZOLOFT) 50 0-13 by mouth ity of mg tablet 00:00: daily. [facility] Branch SERTraline 2014-04- No 50mg Take 50 mg Univers (ZOLOFT) 50 0-13 07-23 by mouth ity of mg tablet 00:00: 00:00 daily. [place] 00 : [facility] SERTraline 2014-04- No 50mg Take 50 mg Univers (ZOLOFT) 50 0-13 07-23 by mouth ity of mg tablet 00:00: 00:00 daily. 00 :00 [facility] Branch amLODIPine 2014-04 Yes 10mg Take 10 mg U nivers (NORVASC) 0-06 by mouth ity of 10 mg 00:00: daily. [place] tablet Medical Branch amLODIPine 2014-04 Yes 10mg Take 10 mg U nivers (NORVASC) 0-06 by mouth ity of 10 mg 00:00: daily. [place] tablet [facility] Branch amLODIPine 2014-04 Yes 10mg Take 10 mg U nivers (NORVASC) 0-06 by mouth ity of 10 mg 00:00: daily. [place] tablet [facility] Branch amLODIPine 2014-04 Yes 10mg Take 10 [...] 10 mg 00:00: daily. [place] tablet 00 [facility] Branch amLODIPine 2014-04 Yes 10mg Take 10 [...] 10 mg 00:00: daily. [place] tablet 00 [facility] Branch amLODIPine 2014-04 Yes 10mg Take 10 [...] 10 mg 00:00: daily. [place] tablet 00 [facility] Branch amLODIPine 2014-04 Yes 10mg Take 10 mg U nivers (NORVASC) 0-06 by mouth ity of 10 mg 00:00: daily. [place] tablet 00 [facility] amLODIPine 2014-04 Yes 10mg Take 10 mg U nivers (NORVASC) 0-06 by mouth ity of 10 mg 00:00: daily. [place] tablet 00 Medical [facility] amLODIPine 2014-04 Yes 10mg Take 10 mg U nivers (NORVASC) 0-06 by mouth ity of 10 mg 00:00: daily. [place] tablet 00 Medical Branch potassium Yes 10meq Take 10 Univ ers chloride 9-08 mEq by ity of (K-DUR) 10 00:00: mouth [place] mEq CR 00 daily. Medical [facility] Branch furosemide Yes 20mg Take 20 mg U nivers (LASIX) 20 9-08 by mouth ity o f mg tablet 00:00: daily. [place] Medical Branch potassium Yes 10meq Take 10 [...] ity o f mg tablet 00:00: daily. [place] Medical Branch potassium Yes 10meq Take 10 [...] ity o f mg tablet 00:00: daily. [place] Medical Branch potassium Yes 10meq Take 10 [...] ity o f mg tablet 00:00: daily. [place] Medical Branch potassium Yes 10meq Take 10 [...] ity o f mg tablet 00:00: daily. [place] Medical Branch potassium Yes 10meq Take 10 [...] [place] :00 qd Medical Branch furosemide No 20mg Take 20 mg Univers (LASIX) 20 12-12 by mouth ity of mg tablet 00:00: 00:00 daily. [place] 00 :00 Medical Branch simvastatin 2020- No 40mg Take 40 mg Univers (ZOCOR) 40 12-1223 by mouth ity of mg tablet [...] lidocaine-p Yes 2.5{spr Apply 2.5 Univers rilocaine 9- ay} Sprays to ity o f (EMLA) 00:00: area(s) as [place] 2.5-2.5 % 00 needed. Medical cream Branch lidocaine-p Yes 2.5{spr Apply 2.5 Univers rilocaine 9- ay} Sprays to ity o f (EMLA) 00:00: area(s) as [place] 2.5-2.5 % 00 needed. Medical cream Branch lidocaine-p Yes 2.5{spr Apply 2.5 Univers rilocaine 9- ay} Sprays to ity o f (EMLA) [...] ity o f 40 mg 00:00: daily. [place] capsule Medical Branch fluticasone 0 Yes 50{spra Use 50 U nivers 50 8-28 y} Sprays in ity of mcg/actuati 00:00: each [place] on nasal 00 nostril Medical spray daily. 2 Branch puffs once daily glipiZIDE 2014-0 Yes 5mg Take 5 mg Uni vers (GLUCOTROL) 8-28 by mouth 2 it y of 5 mg tablet 00:00: (two) [place] 00 times Medical daily. Branch omeprazole 0 Yes 40mg Take 40 mg U nivers (PRILOSEC) 8-28 by mouth ity o f 40 mg 00:00: daily. [place] capsule Medical Branch fluticasone 0 Yes 50{spra Use 50 U nivers 50 8-28 y} Sprays in ity of mcg/actuati 00:00: each [place] on nasal 00 nostril Medical spray daily. 2 Branch puffs once daily glipiZIDE 0 Yes 5mg Take 5 mg Uni vers (GLUCOTROL) 8-28 by mouth 2 it y of 5 mg tablet 00:00: (two) [place] 00 times Medical daily. Branch omeprazole Yes 40mg Take 40 mg U nivers (PRILOSEC) 8-28 by mouth ity o f 40 mg 00:00: daily. [place] capsule Medical Branch fluticasone 0 Yes 50{spra Use 50 U nivers 50 8-28 y} Sprays in ity of mcg/actuati 00:00: each [place] on nasal 00 nostril Medical spray daily. 2 Branch puffs once daily glipiZIDE 2014-0 Yes 5mg Take 5 mg Uni vers (GLUCOTROL) 8-28 by mouth 2 it y of 5 mg tablet 00:00: (two) [place] 00 times Medical daily. Branch omeprazole 0 Yes 40mg Take 40 mg U nivers (PRILOSEC) 8-28 by mouth ity o f 40 mg 00:00: daily. [place] capsule Medical Branch fluticasone 0 Yes 50{spra Use 50 U nivers 50 8-28 y} Sprays in ity of mcg/actuati 00:00: each [place] on nasal 00 nostril Medical spray daily. 2 Branch puffs once daily glipiZIDE Yes 5mg Take 5 mg Uni vers (GLUCOTROL) 8-28 by mouth 2 it y of 5 mg tablet 00:00: (two) [place] 00 times Medical daily. Branch omeprazole Yes 40mg Take 40 mg U nivers (PRILOSEC) 8-28 by mouth ity o f 40 mg 00:00: daily. [facility] Medical Branch fluticasone Yes 50{spra Use 50 U nivers 50 8-28 y} Sprays in ity of mcg/actuati 00:00: each [place] on nasal 00 nostril Medical spray daily. 2 Branch puffs once daily glipiZIDE Yes 5mg Take 5 mg Uni vers (GLUCOTROL) 8-28 by mouth 2 it y of 5 mg tablet 00:00: (two) [place] 00 times Medical daily. Branch omeprazole Yes 40mg Take 40 mg U nivers (PRILOSEC) 8-28 by mouth ity o f 40 mg 00:00: daily. [facility] Medical Branch fluticasone Yes 50{spra Use 50 U nivers 50 8-28 y} Sprays in ity of mcg/actuati 00:00: each [place] on nasal 00 nostril Medical spray daily. 2 Branch puffs once daily glipiZIDE Yes 5mg Take 5 mg Uni vers (GLUCOTROL) 8-28 by mouth 2 it y of 5 mg tablet 00:00: (two) [place] 00 times Medical daily. Branch omeprazole Yes 40mg Take 40 mg U nivers (PRILOSEC) 8-28 by mouth ity o f 40 mg 00:00: daily. [facility] Medical Branch fluticasone Yes 50{spra Use 50 U nivers 50 8-28 y} Sprays in ity of mcg/actuati 00:00: each [place] on nasal 00 nostril Medical spray daily. 2 Branch puffs once daily omeprazole Yes 40mg Take 40 mg U nivers (PRILOSEC) 8-28 by mouth ity o f 40 mg 00:00: daily. [facility] Medical Branch fluticasone Yes 50{spra Use 50 U nivers 50 8-28 y} Sprays in ity of mcg/actuati 00:00: each [place] on nasal 00 nostril Medical spray daily. 2 Branch puffs once daily omeprazole 0 Yes 40mg Take 40 mg U nivers (PRILOSEC) 8-28 by mouth ity o f 40 mg 00:00: daily. [place] capsule Medical Branch fluticasone 0 Yes 50{spra Use 50 U nivers 50 8-28 y} Sprays in ity of mcg/actuati 00:00: each [place] on nasal 00 nostril Medical spray daily. 2 Branch puffs once daily omeprazole 0 Yes 40mg Take 40 mg U nivers (PRILOSEC) 8-28 by mouth ity o f 40 mg 00:00: daily. [facility] Medical Branch fluticasone Yes 50{spra Use 50 U nivers 50 8-28 y} Sprays in ity of mcg/actuati 00:00: each [place] on nasal 00 nostril Medical spray daily. 2 Branch puffs once daily fluticasone 0 Yes 50{spra Use 50 U nivers 50 8-28 y} Sprays in ity of mcg/actuati 00:00: each [place] on nasal 00 nostril Medical spray daily. 2 Branch puffs once daily omeprazole 0 Yes 40mg Take 40 mg U nivers (PRILOSEC) 8-28 by mouth ity o f 40 mg 00:00: daily. [facility] Medical Branch omeprazole 0 Yes 40mg Take 40 mg U nivers (PRILOSEC) 8-28 by mouth ity o f 40 mg 00:00: daily. [facility] Medical Branch fluticasone Yes 50{spra Use 50 U nivers 50 8-28 y} Sprays in ity of mcg/actuati 00:00: each [place] on nasal 00 nostril Medical spray daily. 2 Branch puffs once daily omeprazole 0 Yes 40mg Take 40 mg U nivers (PRILOSEC) 8-28 by mouth ity o f 40 mg 00:00: daily. [facility] Medical Branch fluticasone Yes 50{spra Use 50 U nivers 50 8-28 y} Sprays in ity of mcg/actuati 00:00: each [place] on nasal 00 nostril Medical spray daily. 2 Branch puffs once daily omeprazole 2014-0 Yes 40mg Take 40 mg U nivers (PRILOSEC) 8-28 by mouth ity o f 40 mg 00:00: daily. [facility] Medical Branch fluticasone 0 Yes 50{spra Use 50 U nivers 50 8-28 y} Sprays in ity of mcg/actuati 00:00: each [place] on nasal 00 nostril Medical spray daily. 2 Branch puffs once daily omeprazole 0 Yes 40mg Take 40 mg U nivers (PRILOSEC) 8-28 by mouth ity o f 40 mg 00:00: daily. [facility] fluticasone Yes 50{spra Use 50 U nivers 50 8-28 y} Sprays in ity of mcg/actuati 00:00: each [place] on nasal 00 nostril Medical spray daily. 2 Branch puffs once daily omeprazole 0 Yes 40mg Take 40 mg U nivers (PRILOSEC) 8-28 by mouth ity o f 40 mg 00:00: daily. [facility] fluticasone Yes 50{spra Use 50 U nivers 50 8-28 y} Sprays in ity of mcg/actuati 00:00: each [place] on nasal 00 nostril Medical spray daily. 2 Branch puffs once daily omeprazole 0 Yes 40mg Take 40 mg U nivers (PRILOSEC) 8-28 by mouth ity o f 40 mg 00:00: daily. [facility] Branch fluticasone Yes 50{spra Use 50 U nivers 50 8-28 y} Sprays in ity of mcg/actuati 00:00: each [place] on nasal 00 nostril Medical spray daily. 2 Branch puffs once daily omeprazole 0 Yes 40mg Take 40 mg U nivers (PRILOSEC) 8-28 by mouth ity o f 40 mg 00:00: daily. [facility] Medical Branch fluticasone 0 Yes 50{spra Use 50 U nivers 50 8-28 y} Sprays in ity of mcg/actuati 00:00: each [place] on nasal 00 nostril Medical spray daily. [...] ity o f 40 mg 00:00: daily. [place] capsule Medical Branch glipiZIDE 2020- No 5mg [...] Medical daily. Branch ACCU-CHEK 2015-0 Yes daily. [employer] SANTOS PLUS 8-18 ity of TEST [...] 00:00: [place] strip 00 Medical Branch acetaminoph 2015-0 Yes 300{tbl Take 300 Univers en-codeine 11-15 } Tabs by ity of (TYLENOL 00:00: [...] [place] tablet 00 daily. Medical Branch SIMVASTATIN 2013- No 1 po qd Mem oria 40 [...] oria 40 MG TABS 1-27 l 10:42: 00 AMLODIPINE 2011-04 No 1 po qd Devonte bennie BESYLATE 10 1-27 l MG TABS 10:42: 00 SIMVASTATIN 2011-04 No 1 po qd Mem oria 40 MG TABS 1-27 l 10:42: AMLODIPINE 2011-04 No 1 po qd Dev[facility] bennie BESYLATE 10 1-27 l MG TABS 10:42: SIMVASTATIN 2011-04 No 1 po qd Mem oria 40 MG TABS 1-27 l 10:42: 00 AMLODIPINE 2011-04 No 1 po qd Devonte bennie BESYLATE 10 1-27 l MG TABS 10:42: SIMVASTATIN 2011-04 No 1 po qd Mem oria 40 MG TABS 1-27 l 10:42: Arp 00 AMLODIPINE 2011-04 No 1 po qd Devonte bennie BESYLATE 10 1-27 l MG TABS 10:42: SIMVASTATIN 2011-04 No 1 po qd Mem oria 40 MG TABS 1-27 l 10:42: Arp 00 AMLODIPINE 2011-04 No 1 po qd [...] l 00:00: DEPAKOTE Yes per other Devonte benine TBEC 3-16 M.D. l 00:00: HYDROXYCHLO Yes [...] 37.5-325 MG 00:00: Alex n TABS TRAMADOL-AC 2010- No 1 tab q 12 Memoria ETAMINOPHEN 0-20 hourly PRN l 37.5-325 MG 00:00: Alex n TABS TRAMADOL 2010-0 No 1 po qd Memori a HCL 50 MG 4-07 l TABS 00:00: TIZANIDINE No 1 tab QHS Me moria HCL 4 MG 4-07 PRN l TABS 00:00: HYDROXYCHLO 2010-0 No 1 tab qd Me moria ROQUINE 4-07 l SULFATE 200 00:00: Alex n MG TABS MELOXICAM 0 No 1 tab qd Devonte bennie 15 MG TABS 4-07 w/ food l 00:00: PRN TRAMADOL 2010- No 1 po qd Memori a HCL 50 MG 4-07 l TABS 00:00: HYDROXYCHLO 0 No 1 tab qd Me moria ROQUINE 4-07 l SULFATE 200 00:00: Alex n MG TABS MELOXICAM 2010- No 1 tab qd Devonte bennie 15 [...] 4-07 w/ food l 00:00: PRN TIZANIDINE 2010-0 No 1 tab QHS Me moria HCL 4 MG 4-07 PRN l TABS 00:00: TRAMADOL 2010-0 No 1 po qd Memori a HCL 50 MG 4-07 l TABS 00:00: TIZANIDINE 2010-0 No 1 tab QHS Me moria HCL 4 MG 4-07 PRN l TABS 00:00: Bull 00 HYDROXYCHLO 0 No 1 tab qd Me moria ROQUINE 4-07 l SULFATE 200 00:00: Alex n MG TABS MELOXICAM 2010-0 No 1 tab qd Devonte [...] 50 MG 4-07 l TABS 00:00: TIZANIDINE 2010-0 No 1 [...] 200 00:00: Alex n MG TABS MELOXICAM 2010-0 No 1 tab qd Devonte [...] 50 MG 4-07 l TABS 00:00: TIZANIDINE 2010-0 No 1 [...] 50 MG 4-07 l TABS 00:00: Bull 00 HYDROXYCHLO 0 No 1 tab qd [...] 4-07 PRN l TABS 00:00: VITAMIN D 2009-0 No 1 tab once Me moria [id number] UNIT 3- a week for l CAPS 00:00: two weeks VITAMIN D No 1 tab once Me moria [id number] UNIT 3-09 a week for l CAPS 00:00: two weeks VITAMIN D No 1 tab once Me moria [id number] UNIT 3- a week for l CAPS 00:00: two weeks VITAMIN D No 1 tab once Me moria [id number] UNIT 3- a week for l CAPS 00:00: two weeks VITAMIN D No 1 tab once Me moria [id number] UNIT 3- a week for l CAPS 00:00: two weeks VITAMIN D No 1 tab once Me moria [id number] UNIT 3- a week for l CAPS 00:00: two weeks VITAMIN D No 1 tab once Me moria [id number] UNIT 3 a week for l CAPS 00:00: two weeks VITAMIN D No 1 tab once Me moria [id number] UNIT 3- a week for l CAPS 00:00: two weeks VITAMIN D No 1 tab once Me moria [id number] UNIT 3- a week for l CAPS 00:00: two weeks VITAMIN D No 1 tab once Me moria [id number] UNIT 3- a week for l CAPS 00:00: two weeks VITAMIN D No 1 tab once Me moria [id number] UNIT 3- a week for l CAPS 00:00: two weeks VITAMIN D No 1 tab once Me moria [id number] UNIT 3- a week for l CAPS 00:00: two weeks VITAMIN D No 1 tab once Me moria [id number] UNIT 3- a week for l CAPS 00:00: two weeks VITAMIN D No 1 tab once Me moria [id number] UNIT 3-09 a week for l CAPS 00:00: two weeks Immunizations Ordered Immunization Filled Immunization Date Status Commen ts Source Name Name polio vaccine #4 2011-08-29 Completed [facility] 16:08:45 [facility] polio vaccine #4 2011-08-29 Completed [facility] 16:08:45 Bull polio vaccine #4 2011-08-29 Completed [facility] 16:08:45 Bull polio vaccine #4 2011-08-29 Completed [facility] 16:08:45 Bull polio vaccine #4 2011-08-29 Completed [facility] 16:08:45 Arp polio vaccine #4 2011-08-29 Completed [facility] 16:08:45 Bull polio vaccine #4 2011-08-29 Completed [facility] 16:08:45 Arp polio vaccine #4 2011-02-14 Completed [facility] 20:47:19 Arp polio vaccine #4 2011-02-14 Completed [facility] 20:47:19 Arp polio vaccine #4 2011-02-14 Completed [facility] 20:47:19 Arp polio vaccine #4 2011-02-14 Completed [facility] 20:47:19 Arp polio vaccine #4 2011-02-14 Completed [facility] 20:47:19 Bull polio vaccine #4 2011-02-14 Completed [facility] 20:47:19 Arp polio vaccine #4 2011-02-14 Completed [facility] 20:47:19 Arp Vital Signs Vital Name Observation Time Observation Value Comments Source HEIGHT 2021-12-02 06:45:00 180.3 cm WEIGHT 2021-12-02 06:45:00 107.5 kg WEIGHT 2021-11-18 10:14:00 102.059 kg HEIGHT 2021-11-18 10:14:00 180.3 cm HEIGHT 2021-12-02 06:45:00 180.3 cm WEIGHT 2021-12-02 06:45:00 107.5 kg WEIGHT 2021-11-18 10:14:00 102.059 kg HEIGHT 2021-11-18 10:14:00 180.3 cm HEIGHT 2021-12-02 06:45:00 180.3 cm WEIGHT 2021-12-02 06:45:00 107.5 kg WEIGHT 2021-11-18 10:14:00 102.059 kg HEIGHT 2021-11-18 10:14:00 180.3 cm Systolic blood 2021-01-26 20:01:00 158 mm[Hg] Univer sity of pressure [facility] Diastolic blood 2021-01-26 20:01:00 74 mm[Hg] Unive rsity of pressure [place] [facility] Heart rate 2021-01-26 20:00:00 93 /min [facility] [place] [facility] Body temperature 2021-01-26 20:00:00 36.83 Annel Univ ers[facility] [place] [facility] Respiratory rate 2021-01-26 20:00:00 20 /min [facility] [place] [facility] Body height 2021-01-26 20:00:00 175.3 cm [facility] [place] [facility] Body weight 2021-01-26 20:00:00 101.833 kg [facility] [place] [facility] BMI 2021-01-26 20:00:00 33.15 kg/m2 [facility] [place] [facility] Oxygen saturation in 2021-01-26 20:00:00 96 /min University of Arterial blood by [facility] patrick Pulse oximetry Branch Systolic blood 2020-12-11 07:49:02 161 mm[Hg] Univer sity of pressure [place] [facility] Diastolic blood 2020-12-11 07:49:02 70 mm[Hg] Unive rsity of pressure [place] [facility] Heart rate 2020-12-11 07:49:02 86 /min [facility] [place] [facility] Body temperature 2020-12-11 07:49:02 38.17 Annel [facility] [place] [facility] Respiratory rate 2020-12-11 07:49:02 19 /min Univ [facility] [place] [facility] Oxygen saturation in 2020-12-11 07:49:02 96 /min University of Arterial blood by [facility] patrick Pulse oximetry Branch Body height 2020-12-11 06:05:00 176.5 cm [facility] [place] [facility] Body weight 2020-12-11 06:05:00 102.967 kg [facility] [place] [facility] BMI 2020-12-11 06:05:00 33.04 kg/m2 [facility] [place] [facility] Systolic blood 2020-10-26 22:04:00 178 mm[Hg] Univer sity of pressure [place] [facility] Diastolic blood 2020-10-26 22:04:00 90 mm[Hg] Unive rsity of pressure [place] [facility] Heart rate 2020-10-26 21:41:00 78 /min [facility] [place] [facility] Respiratory rate 2020-10-26 21:33:00 21 /min Univ ersity of [facility] Body height 2020-10-26 21:33:00 175.3 cm [facility] [place] [facility] Body weight 2020-10-26 21:33:00 103.602 kg [facility] [place] [facility] BMI 2020-10-26 21:33:00 33.73 kg/m2 Universi ty [facility] Oxygen saturation in 2020-10-26 21:33:00 97 /min University Arterial blood by [facility] Pulse oximetry Branch Systolic blood 2020-10-09 15:12:00 125 mm[Hg] Univer sity of [facility] Diastolic blood 2020-10-09 15:12:00 73 mm[Hg] Unive rsity of [facility] Heart rate 2020-10-09 15:12:00 65 /min Universi ty of [facility] Body height 2020-10-09 15:12:00 175.3 cm Universi ty [facility] Body weight 2020-10-09 15:12:00 102.967 kg Universi ty [facility] BMI 2020-10-09 15:12:00 33.52 kg/m2 Universi ty [facility] Systolic blood 2021-12-02 09:30:00 140 mm[Hg] [facility] Diastolic blood 2021-12-02 09:30:00 77 mm[Hg] [facility] Heart rate 2021-12-02 09:30:00 60 /min [facility] Respiratory rate 2021-12-02 09:30:00 15 /min [facility] Oxygen saturation in 2021-12-02 09:30:00 97 /min [facility] Arterial blood by Medical nter Pulse oximetry Body temperature 2021-12-02 09:15:00 36.22 Annel [facility] Body height 2021-12-02 06:45:00 180.3 cm [facility] Body weight 2021-12-02 06:45:00 107.5 kg [facility] BMI 2021-12-02 06:45:00 33.05 kg/m2 [facility] Height 2013-04-19 16:42:10 [facility] Systolic (mm Hg) 2013-04-19 16:42:10 Devonte rial Arp Diastolic (mm Hg) 2013-04-19 16:42:10 Mem orial Arp Heart Rate 2013-04-19 16:42:10 [facility] Arp Systolic (mm Hg) 2011-01-16 16:53:41 Devonte rial Arp Diastolic (mm Hg) 2011-01-16 16:53:41 Mem orial Arp Heart Rate 2011-01-16 16:53:41 [facility] Systolic (mm Hg) 2010-07-11 13:20:54 Devonte rial Arp Diastolic (mm Hg) 2010-07-11 13:20:54 Mem orial Bull Heart Rate 2010-07-11 13:20:54 [facility] Diastolic (mm Hg) 2009-11-28 13:10:48 Mem orial Arp Heart Rate 2009-11-28 13:10:48 [facility] Arp Weight 2009-11-28 13:10:48 [facility] Arp Systolic (mm Hg) 2009-11-28 13:10:48 Devonte rial Arp Height 2009-06-07 16:58:43 [facility] Arp Weight 2009-06-07 16:58:43 [facility] Arp Systolic (mm Hg) 2009-06-07 16:58:43 Devonte rial Arp Diastolic (mm Hg) 2009-06-07 16:58:43 Mem orial Arp Heart Rate 2009-06-07 16:58:43 [facility] Procedures Procedure Date / Time Performing Clinician Source Performed POCT-GLUCOSE METER 2021-12-02 08:47:00 Nato Montes [facility] RELEASE, CARPAL TUNNEL 2021-12-02 07:22:00 Nato Montes [facility] POCT-GLUCOSE METER 2021-12-02 06:57:00 Nato Montes [facility] REFERRAL- 2021-02-25 06:01:00 Doctor Unassigned, No [facility] REQUEST/RESPONSE Name Medical Branch TROPONIN I 2020-12-11 06:37:00 Devi Fuentes [facility] Medical Branch COMP. METABOLIC PANEL 2020-12-11 06:37:[address] [facility] ([id number]) Medical Branch CBC WITH DIFF 2020-12-11 06:37:00 Devi Fuentes [facility] Medical Branch COVID-19 (ID NOW RAPID 2020-12-11 06:35:[address] [facility] TESTING) Medical Branch POCT HEMOGLOBIN A1C TEST 2020-10-26 21:52:00 Tian Lu U [facility] CONSENT/REFUSAL FOR 2020-10-09 14:49:17 Doctor Unassigned, No Un [facility] DIAGNOSIS AND TREATMENT Name Medical Branch REFERRAL- 2020-09-25 05:01:00 Doctor Unassigned, No [facility] REQUEST/RESPONSE Name Medical Branch genitourinary review of 2009-06-07 16:58:43 Devonte jose [facility], E&M Plan of Care Planned Activity Planned Date Details Comments Source Future Scheduled 2022-12-05 Influenza Vaccine (#1) [facility] 00:[facility]:00 [code = Influenza Medical Ce nter Vaccine (#1)] Future Scheduled 2022-12-[address] [facility] 00:00:00 (Season Ended) [code = [facility] Influenza Vaccine (Season Ended)] Future Scheduled 2022-12-05 Influenza Vaccine (#1) [facility] 00:00:00 [code = Influenza Medical Ce nter Vaccine (#1)] Future Scheduled 2022-12-[address] [facility] Test 00:00:00 [facility] Screening (12+) [code = Tobacco Cessation Counseling and Screening (12+)] Future Scheduled 2022-12-[address] [facility] Test 00:00:00 [facility] Screening (12+) [code = Tobacco Cessation Counseling and Screening (12+)] Future Scheduled 2022-12-[address] [facility] Test 00:00:00 [facility] Cent[facility] r Screening (12+) [code = Tobacco Cessation Counseling and Screening (12+)] Future Scheduled 2022-12-[address] [facility] Test 00:00:00 [facility] Cent[facility] r Screening (12+) [code = Tobacco Cessation Counseling and Screening (12+)] Future Scheduled 2022-04-[address] [facility] 00:00:00 (12+) [code = Medical Center DEPRESSION SCREENING (12+)] Future Scheduled 2022-04-06 FALLS RISK SCREENING [facility] 00:00:00 [code = FALLS RISK Medical C enter SCREENING] Future Scheduled 2022-04-[address] [facility] Test 00:00:00 (12+) [code = Medical Center DEPRESSION SCREENING (12+)] Future Scheduled 2022-04-06 FALLS RISK SCREENING [facility] 00:00:00 [code = FALLS RISK Medical C enter SCREENING] Future Scheduled 2022-04-[address] [facility] 00:00:00 (12+) [code = Medical Center DEPRESSION SCREENING (12+)] Future Scheduled 2022-04-06 FALLS RISK SCREENING [facility] 00:00:00 [code = FALLS RISK Medical C enter SCREENING] Future Scheduled 2022-04-[address] [facility] 00:00:00 (12+) [code = Medical Center DEPRESSION SCREENING (12+)] Future Scheduled 2022-04-06 FALLS RISK SCREENING [facility] 00:00:00 [code = FALLS RISK Medical C enter SCREENING] Future Scheduled 2021-12-05 INFLUENZA VACCINE (#1) [facility] 00:00:00 [code = INFLUENZA Medical Ce nter VACCINE (#1)] Future Scheduled 2021-12-05 INFLUENZA VACCINE (#1) [facility] 00:00:00 [code = INFLUENZA Medical Ce nter VACCINE (#1)] Future Scheduled 2021-12-05 INFLUENZA VACCINE (#1) [facility] 00:00:00 [code = INFLUENZA Medical Ce nter VACCINE (#1)] Future Scheduled 2021-04-[address] [facility] 00:00:00 (12+) [code = Medical Center DEPRESSION SCREENING (12+)] Future Scheduled 2021-04-06 FALLS RISK SCREENING [facility] 00:00:00 [code = FALLS RISK Medical C enter SCREENING] Future Scheduled 2021-04-[address] [facility] 00:00:00 (12+) [code = Medical Center DEPRESSION SCREENING (12+)] Future Scheduled 2021-04-06 FALLS RISK SCREENING [facility] 00:00:00 [code = FALLS RISK Medical C enter SCREENING] Future Scheduled 2020-10-11 PNEUMOCOCCAL 65+ YRS ([address] [facility] 00:00:00 - PCV) [code = Medical Cente r PNEUMOCOCCAL 65+ YRS (2 - PCV)] Future Scheduled 2020-10-11 PNEUMOCOCCAL 65+ YRS ([address] [facility] 00:00:00 - PCV) [code = Medical Cente r PNEUMOCOCCAL 65+ YRS (2 - PCV)] Future Scheduled 2020-10-11 PNEUMOCOCCAL 65+ YRS ([address] [facility] 00:00:00 - PCV) [code = Medical Cente r PNEUMOCOCCAL 65+ YRS (2 - PCV)] Future Scheduled 2020-08-17 COVID-19 VACCINE (2 - [facility]00 [facility] series) [code = COVID-19 VACCINE (2 - Booster for [facility] series)] Future Scheduled 2020-08-17 COVID-19 VACCINE (2 - [facility]:00 [facility] series) [code = COVID-19 VACCINE (2 - Booster for [facility] series)] Future Scheduled 2020-08-17 COVID-19 VACCINE (2 - [facility] 00:00:00 [facility] series) [code = COVID-19 VACCINE (2 - Booster for [facility] series)] Future Scheduled 2020-08-17 COVID-19 VACCINE (2 - [facility] 00[facility]00:00 [facility] series) [code = COVID-19 VACCINE (2 - Booster for [facility] series)] Future Scheduled 2020-08-17 COVID-19 VACCINE (2 - [facility] 00:00:00 [facility] series) [code = COVID-19 VACCINE (2 - Booster for [facility] series)] Future Scheduled 2020-08-17 COVID-19 VACCINE (2 - [facility] 00:00:00 [facility] series) [code = COVID-19 VACCINE (2 - Booster for [facility] series)] Future Scheduled 2016-02-[address] [facility] 00:[facility]:00 WELLNESS (YEAR 2 or Medical Center FIRST YEAR if no IPPE) [code = MEDICARE ANNUAL WELLNESS (YEAR 2 or FIRST YEAR if no IPPE)] Future Scheduled 2016-02-[address] [facility] 00:00:00 WELLNESS (YEAR 2 or Medical Center FIRST YEAR if no IPPE) [code = MEDICARE ANNUAL WELLNESS (YEAR 2 or FIRST YEAR if no IPPE)] Future Scheduled 2016-02-[address] [facility] 00:00:00 WELLNESS (YEAR 2 or Medical Center FIRST YEAR if no IPPE) [code = MEDICARE ANNUAL WELLNESS (YEAR 2 or FIRST YEAR if no IPPE)] Future Scheduled 2016-02-[address] [facility] 00:00:00 WELLNESS (YEAR 2 or Medical Center FIRST YEAR if no IPPE) [code = MEDICARE ANNUAL WELLNESS (YEAR 2 or FIRST YEAR if no IPPE)] Future Scheduled 2016-02-[address] [facility] 00:00:00 WELLNESS (YEAR 2 or Medical Center FIRST YEAR if no IPPE) [code = MEDICARE ANNUAL WELLNESS (YEAR 2 or FIRST YEAR if no IPPE)] Future Scheduled 2016-02-[address] [facility] 00:00:00 WELLNESS (YEAR 2 or Medical Center FIRST YEAR if no IPPE) [code = MEDICARE ANNUAL WELLNESS (YEAR 2 or FIRST YEAR if no IPPE)] Future Scheduled 2002 SHINGLES VACCINES ([address] [facility] 00:00:00 2) [code = SHINGLES Medical Center VACCINES (1 of 2)] Future Scheduled 2002 SHINGLES VACCINES ([address] [facility] 00:00:00 2) [code = SHINGLES Medical Center VACCINES (1 of 2)] Future Scheduled 2002 SHINGLES VACCINES ([address] [facility] 00:00:00 2) [code = SHINGLES Medical Center VACCINES (1 of 2)] Future Scheduled 2002 SHINGLES VACCINES ([address] [facility] 00:00:00 2) [code = SHINGLES Medical Center VACCINES (1 of 2)] Future Scheduled 2002 SHINGLES VACCINES ([address] [facility] 00:00:00 2) [code = SHINGLES Medical Center VACCINES (1 of 2)] Future Scheduled 2002 SHINGLES VACCINES ([address] [facility] 00:00:00 2) [code = [facility] VACCINES (1 of 2)] Future Scheduled 1971-10-18 DTAP/TDAP/TD VACCINES [facility] 00:00:00 (1 - Tdap) [code = Medical C enter DTAP/TDAP/TD VACCINES (1 - Tdap)] Future Scheduled 1971-10-18 DTAP/TDAP/TD VACCINES [facility] 00:00:00 (1 - Tdap) [code = Medical C enter DTAP/TDAP/TD VACCINES (1 - Tdap)] Future Scheduled 1971-10-18 DTAP/TDAP/TD VACCINES [facility] 00:00:00 (1 - Tdap) [code = Medical C enter DTAP/TDAP/TD VACCINES (1 - Tdap)] Future Scheduled 1971-10-18 DTAP/TDAP/TD VACCINES [facility] 00:00:00 (1 - Tdap) [code = Medical C enter DTAP/TDAP/TD VACCINES (1 - Tdap)] Future Scheduled 1971-10-18 DTAP/TDAP/TD VACCINES [facility] 00:00:00 (1 - Tdap) [code = Medical C enter DTAP/TDAP/TD VACCINES (1 - Tdap)] Future Scheduled 1971-10-18 DTAP/TDAP/TD VACCINES [facility] 00:00:00 (1 - Tdap) [code = Medical C enter DTAP/TDAP/TD VACCINES (1 - Tdap)] Future Scheduled 1970 HEPATITIS C SCREENING [facility] 00:00:00 [code = HEPATITIS C Medical Center SCREENING] Future Scheduled 1970 HEPATITIS C [facility]CRE[facility] 00:00:00 [code = HEPATITIS C Medical Center SCREENING] Future Scheduled 1970 HEPATITIS C [facility]CRE[facility] 00:00:00 [code = HEPATITIS C Medical Center SCREENING] Future Scheduled 1970 HEPATITIS C [facility] 00:00:00 [code = HEPATITIS C Medical Center SCREENING] Future Scheduled 1970 HEPATITIS C [facility] 00:00:00 [code = HEPATITIS C Medical Center SCREENING] Future Scheduled 1970 HEPATITIS C SCREENING CH I [facility]] Future Scheduled 1952 Screening for malignant [facility] 00:00:00 neoplasm of breast Medical C enter (procedure) [code = 514098416] Future Scheduled 1952 CT Colonography (combo) [facility] 00:[facility]:00 [code = CT Colonography [facility] (combo)] Future Scheduled 1952 Screening for malignant [facility] 00:00:00 neoplasm of colon Medical Ce nter (procedure) [code = 277875595] Future Scheduled 1952 Screening for malignant [facility] 00:00:00 neoplasm of colon Medical Ce nter (procedure) [code = 876626282] Future Scheduled 1952 DXA SCAN [code = DXA [facility] 00:[facility]:00 SCAN] [facility] Future Scheduled 1952 Screening for malignant [facility] 00:00:00 neoplasm of colon Medical Ce nter (procedure) [code = 831735559] Future Scheduled 1952 Screening for malignant [facility] 00:00:00 neoplasm of colon Medical Ce nter (procedure) [code = 341160801] Future Scheduled 1952 Sigmoidoscopy [code = [facility] S[facility]oidoscopy] [facility] Future Scheduled 1952 Screening for malignant [facility] 00:00:00 neoplasm of breast Medical C enter (procedure) [code = 655120475] Future Scheduled 1952 CT Colonography (combo) [facility] 00:00:00 [code = CT Colonography [facility] (combo)] Future Scheduled 1952 Screening for malignant [facility] 00:00:00 neoplasm of colon Medical Ce nter (procedure) [code = 880271490] Future Scheduled 1952 Screening for malignant [facility] 00:00:00 neoplasm of colon Medical Ce nter (procedure) [code = 848283359] Future Scheduled 1952 DXA SCAN [code = DXA [facility] 00:00:00 SCAN] [facility] Future Scheduled 1952 Screening for malignant [facility] 00:00:00 neoplasm of colon Medical Ce nter (procedure) [code = 971060074] Future Scheduled 1952 Screening for malignant [facility] 00:00:00 neoplasm of colon Medical Ce nter (procedure) [code = 853965037] Future Scheduled 1952 Sigmoidoscopy [code = [facility]] [facility] Future Scheduled 1952 Screening for malignant [facility] 00:00:00 neoplasm of breast Medical C enter (procedure) [code = 894992218] Future Scheduled 1952 CT Colonography (combo) [facility] 00:00:00 [code = CT Colonography [facility] (combo)] Future Scheduled 1952 Screening for malignant [facility] 00:00:00 neoplasm of colon Medical Ce nter (procedure) [code = 349570672] Future Scheduled 1952 Screening for malignant [facility] 00:00:00 neoplasm of colon Medical Ce nter (procedure) [code = 400095079] Future Scheduled 1952 DXA SCAN [code = DXA [facility] 00:00:00 SCAN] [facility] Future Scheduled 1952 Screening for malignant [facility] 00:00:00 neoplasm of colon Medical Ce nter (procedure) [code = 225299421] Future Scheduled 1952 Screening for malignant [facility] 00:00:00 neoplasm of colon Medical Ce nter (procedure) [code = 821131287] Future Scheduled 1952 Sigmoidoscopy [code = [facility] Future Sched[facility] 1952 Screening for malignant [facility] 00:00:00 neoplasm of breast Medical C enter (procedure) [code = 894449719] Future Scheduled 1952 CT Colonography (combo) [facility] 00:00:00 [code = CT Colonography [facility] (combo)] Future Scheduled 1952 Screening for malignant [facility] 00:00:00 neoplasm of colon Medical Ce nter (procedure) [code = 207896859] Future Scheduled 1952 Screening for malignant [facility] 00:00:00 neoplasm of colon Medical Ce nter (procedure) [code = 849067933] Future Scheduled 1952 DXA SCAN [code = DXA [facility] 00:00:00 SCAN] [facility] Future Scheduled 1952 Screening for malignant [facility] 00:00:00 neoplasm of colon Medical Ce nter (procedure) [code = 323327558] Future Scheduled 1952 Screening for malignant [facility] 00:00:00 neoplasm of colon Medical Ce nter (procedure) [code = 475592723] Future Scheduled 1952 Sigmoidoscopy [code = [facility]] [facility] Future Scheduled 1952 Screening for malignant [facility] 00:00:00 neoplasm of breast Medical C enter (procedure) [code = 299107827] Future Scheduled 1952 CT Colonography (combo) [facility] 00:00:00 [code = CT Colonography [facility] (combo)] Future Scheduled 1952 Screening for malignant [facility] 00:00:00 neoplasm of colon Medical Ce nter (procedure) [code = 715230104] Future Scheduled 1952 Screening for malignant [facility] 00:00:00 neoplasm of colon Medical Ce nter (procedure) [code = 642903128] Future Scheduled 1952 DXA SCAN [code = DXA [facility] 00:00:00 SCAN] [facility] Future Scheduled 1952 Screening for malignant [facility] 00:00:00 neoplasm of colon Medical Ce nter (procedure) [code = 103958979] Future Scheduled 1952 Screening for malignant [facility] 00:00:00 neoplasm of colon Medical Ce nter (procedure) [code = 794727445] Future Scheduled 1952 Sigmoidoscopy [code = [facility]] [facility] Future Scheduled 1952 Screening for malignant [facility] 00:00:00 neoplasm of breast Medical C enter (procedure) [code = 570854766] Future Scheduled 1952 CT Colonography (combo) [facility] 00:00:00 [code = CT Colonography [facility] (combo)] Future Scheduled 1952 Screening for malignant [facility] 00:00:00 neoplasm of colon Medical Ce nter (procedure) [code = 297436549] Future Scheduled 1952 Screening for malignant [facility] 00:00:00 neoplasm of colon Medical Ce nter (procedure) [code = 746400473] Future Scheduled 1952 DXA SCAN [code = DXA [facility] 00:00:00 SCAN] [facility] Future Scheduled 1952 Screening for malignant [facility] 00:00:00 neoplasm of colon Medical Ce nter (procedure) [code = 758996572] Future Scheduled 1952 Screening for malignant [facility] 00:00:00 neoplasm of colon Medical Ce nter (procedure) [code = 269418297] Future Scheduled 1952 Sigmoidoscopy [code = [facility]oscopy] [facility] Cent[facility] r Encounters Start End Encounter Admission Attending Care Care Encounter Source Date/Time Date/Time Type Type Clinicians Facility Department ID 2021-02-04 Emergency [facility] [id number] [facility] 2021-12-02 2021-12-02 [facility] Nato Monets [facility] [id number] 06:15:00 09:47:00 Encounter [facility] 2021-12-02 2021-12-02 Hospital Nato Gustafson [facility] [id number] 06:15:00 09:47:00 Encounter [facility] 2021-12-02 2021-12-02 Outpatient [facility] Surgery [id number] SLE 06:15:00 09:47:00 2021-12-02 2021-12-02 Surgery Nato Montes [facility] [id number] 08:30:00 09:30:00 [facility] 2021-12-02 2021-12-02 Surgery Nato Montes [facility] [id number] 08:30:00 09:30:00 [facility] 2021-12-02 2021-12-02 Anesthesia Sergei Pineda [facility] [id number] 08:03:00 08:40:00 Event [facility] 2021-12-02 2021-12-02 Anesthesia [facility] [id number] 08:03:00 08:40:00 Event [facility] 2021-12-02 2021-12-02 Travel [facility] [id number] [facility] 00:[facility]00 00:00:00 [facility] 2021-12-02 2021-12-02 Travel [facility] [id number] [facility] 00:[facility]00 00:00:00 [facility] 2021-11-27 2021-11-27 Laboratory Only, Ang Db Test [facility] 1.2.8 40.114 [id number] [facility] 10:30:00 10:45:00 Only [facility] 350.1.13.10 ralph becerril ALTON 4.2.7.2.686 Fausto as MIGUE?BLEA [id number] [address] MEDICAL OFFICE BUILDING 2021-11-27 2021-11-27 Outpatient R CORINNE [facility] [id number] Univers 10:30:00 10:30:00 JONATHAN rosas o f [facility] 2021-11-18 2021-11-18 Outpatient EL [facility] [id number] [facility] 10:51:33 23:59:00 2021-11-18 2021-11-18 [facility] [id number] 09:30:00 23:59:00 Encounter [facility] 2021-11-18 2021-11-18 Travel [facility] [id number] [facility] 00:00:00 00:00:00 [facility] 2021-11-01 2021-11-01 Outpatient SACHI [facility] [id number] [place] 00:00:00 00:00:00 _KELLEY 0729 da [facility] 2021-07-05 2021-07-05 [facility] [id number] Univers 14:00:00 14:00:00 TIAN rosas [facility] 2021-05-10 2021-05-10 [facility] [id number] Univers 10:30:00 10:30:00 TIAN rosas [facility] 2021-04-20 2021-04-20 [facility] 1.2.988.079 [id number] Univers 00:00:00 00:00:00 Tian RAY 350.1.13.10 i ty of [place] [phone] [facility] [address] BU[facility]ING 2021-04-18 2021-04-18 Letter MAULIK Driscoll 1.2.840.114 [id number] Univers 00:00:00 00:00:00 (Out) Josh SAHU 350.1.13.10 ity of [facility] 4.2.7.2.686 Fausto as [phone] [facility] [address] 2021-02-25 2021-02-25 Orders Doctor MAULIK 1.2.840.114 [id number] Univers 00:00:00 00:00:00 Only Unassigned, ADELINA 350.1.13.10 ity of [place] [facility] 4.2.7.2.686 Fausto as [phone] [facility] [address] 2021-01-26 2021-01-26 Outpatient R SEVEN [facility] [id number] Univers 15:20:00 15:20:00 [facility] 2021-01-26 2021-01-26 Urgent Navin Valera [facility] 1.2.840.114 [id number] Univers 14:55:35 15:15:35 [facility] 350.1.13.10 ity of [place] 4.2.7.2.686 Fausto as Migue?Blea [phone] Ny dic[address] Medical Office Building 2021-01-03 2021-01-03 Letter MAULIK Hamilton 1.2.840.114 [id number] Univers 00:00:00 00:00:00 (Out) Pamela SAHU 350.1.13.10 it y of [facility] 4.2.7.2.686 Fausto as [phone] [address] 2021-01-02 2021-01-02 Laboratory Only, Ang Db Test [facility] 1.2.8 40.114 [id number] Univers 09:03:03 09:18:03 Only Kayy Marx [facility] 350.1.13.10 ity of [place] 4.2.7.2.686 Fausto as Migue?Blea [id number] Ny dic[address] 2021-01-02 2021-01-02 Outpatient R [facility] [id number] Univers 09:15:00 09:15:00 ity [facility] 2020-12-13 2020-12-13 [facility] [id number] Univers 16:00:00 16:00:00 BOBBY ity [facility] 2020-12-11 2020-12-11 Emergency [facility] 1.2.840.114 [id number] Univers 01:00:00 03:03:00 Devi Michaud [place] 350.1.13.10 ity [facility] 4.2.7.2.686 [place] [facility] [phone] [facility] [address] 2020-12-11 2020-12-11 Letter MAULIK Hamilton 1.2.840.114 [id number] Univers 00:00:00 00:00:00 (Out) Pamela SAHU 350.1.13.10 it y of [facility] 4.2.7.2.686 Fausto as [phone] [address] 2020-12-08 2020-12-08 Outpatient R [facility] [id number] Univers 13:25:00 13:25:00 ity [facility] 2020-12-08 2020-12-08 Laboratory Only, Ang Db Test [facility] 1.2.8 40.114 [id number] Univers 12:59:14 13:09:14 [facility] 350.1.13.10 ity of [place] 4.2.7.2.686 Fausto as Migue?Blea [phone] Ny dical kney 370 [facility] 2020-10-26 2020-10-29 Outpatient R BRYNN [facility] [id number] Univers 16:00:00 13:53:39 TIAN rosas [facility] 2020-10-26 2020-10-29 Office [facility] 1.2.279.135 [id number] [facility] 15:49:45 13:53:39 Visit Tian Puma Lydia 350.1.13.10 i [place] [phone] Ny dical nal 220 [facility] 2020-10-10 2020-10-10 Telephone [facility] 1.2.840.114 [id number] Univers 00:00:00 00:00:00 Chris Ray 350.1.13.10 [place] [phone] Ny dical nal 092 [facility] 2020-10-09 2020-10-09 Test Conductor 2, Adc Lab [facility] 1.2.840.114 [id number] Univers 11:02:42 11:17:42 Visit Chris Araujo 350.1.13 .10 ity [place] [phone] Ny dical nal 353 [facility] 2020-10-09 2020-10-09 Outpatient R CHRIS ARAUJO [facility] [id number] Univers 10:00:00 11:01:13 CHRIS ARAUJO [facility] 2020-10-09 2020-10-09 Office [facility] 1.2.840.114 [id number] Univers 09:50:22 11:01:13 Visit Chris Ray 350.1.13.10 [place] [phone] Ny dical [facility] [address] [facility] 2020-10-09 2020-10-09 Orders Doctor MAULIK 1.2.840.114 [id number] Univers 00:00:00 00:00:00 Only Unassigned, ADELINA 350.1.13.10 ity of [place] [facility] 4.2.7.2.686 Fausto as [phone] [address] 2020-09-25 2020-09-25 Orders Doctor MAULIK 1.2.840.114 [id number] Univers 00:00:00 00:00:00 Only Unassigned, ADELINA 350.1.13.10 ity of [place] [facility] 4.2.7.2.686 Fausto as [phone] [address] 2019-12-06 2019-12-06 [facility]patient [facility] [id number] [place] 11:43:00 11:43:00 [facility] 2013-04-19 2013-04-19 Lab Report nullFlavo Flynn 1705 [id number] Memoria 00:00:00 00:00:00 r Bone & 097767 l [facility] 2013-04-19 2013-04-19 Lab Report nullFlavo Flynn 1705 [id number] [facility] 00:00:00 00:00:00 r Bone & 904873 [facility] 2012-09-01 2012-09-01 Lab Report nullFlavo Flynn 1685 [id number] [facility] 00:00:00 00:00:00 r Bone & 061540 [facility] 2012-09-01 2012-09-01 Lab Report nullFlavo Flynn 1685 [id number] [facility] 00:00:00 00:00:00 r Bone & 226097 [facility] 2012-03-02 2012-03-02 Lab Report nullFlavo Flynn 1669 [id number] [facility] 00:00:00 00:00:00 r Bone & 624773 [facility] 2012-03-02 2012-03-02 Lab Report nullFlavo Flynn 1669 [id number] [facility] 00:00:00 00:00:00 r Bone & 910548 [facility] 2011-10-30 2011-10-30 Office nullFlavo Pawan [id number] [facility] 00:00:00 00:00:00 Visit r Office 340522 l [facility] 2011-10-30 2011-10-30 Office desireeFlavo Pawan [id number] [facility]oria 00:00:00 00:00:00 Visit r Office 015897 kofi [facility] 2011-10-29 2011-10-29 Lab Report nullFlavo Pawan 1658 [id number] [facility] 00:00:00 00:00:00 r Bone & 094733 l [facility] 2011-10-29 2011-10-29 Lab Report nullFlavo Pawan 1658 [id number] [facility] 00:00:00 00:00:00 r Bone & 701567 l [facility] 2011-08-29 2011-08-29 Office nullFlavo Pawan [id number] [facility] 00:00:00 00:00:00 Visit r Office 354415 kofi [facility] 2011-08-29 2011-08-29 Office desireeFlavo Pawan [id number] [facility] 00:00:00 00:00:00 Visit r Office 763725 l [facility] 2011-07-01 2011-07-01 Lab Report nullFlavo PAWAN 1648 [id number] [facility] 00:00:00 00:00:00 r BONE AND 421362 l [facility] 2011-07-01 2011-07-01 Lab Report nullFlavo PAWAN 1648 [id number] [facility] 00:00:00 00:00:00 r BONE AND 506017 l [facility] 2011-06-20 2011-06-20 Office nullFlavo [place] 41175 80976 Memoria 00:00:00 00:00:00 Visit r Office 877252 l [facility] 2011-06-20 2011-06-20 Office nullFlavo [place] 22813 02548 [facility]oria 00:00:00 00:00:00 Visit r Office 975223 l [facility] 2011-06-20 2011-06-20 Lab Report nullFlavo PAWAN 1647 [id number] [facility] 00:00:00 00:00:00 r BONE AND 211112 l [facility] 2011-06-20 2011-06-20 Lab Report nullFlavo PAWAN 1647 [id number] [facility] 00:00:00 00:00:00 r BONE AND 561983 l [facility] Results Test Description Test Time Test Comments Results Result Comments Source POC-Glucose meter 2021-12-02 08:58:26 Test Item Value Reference Range Interpretation Comme nts POC-Glucose Meter (test code = 111 mg/dL 70-110 H : Notified RN/MD: TESTED AT [facility] 1538) [facility] [address]: Drill Instructor /Test Conductor ID = [id number] for MAULIK JOYCELYN RODRÍGUEZ Lab Interpretation (test code = Abnormal 70983-5) [facility]-Glucose [id number] 08:58:26 Test Item Value Reference Range Interpretation Comments POC-Glucose Meter (test 111 mg/dL 70-110 H : No tified RN/MD: code = 1538) TESTED AT [address] [address]: Drill Instructor/Techni tamara ID = [id number] for PEE CARLTON YI Lab Interpretation (test Abnormal code = 33601-2) [facility]-Glucose [id number] 08:58:26 Test Item Value Reference Range Interpretation Comments POC-Glucose Meter (test 111 mg/dL 70-110 H : No tified RN/MD: code = 1538) TESTED AT [address] [address]: Drill Instructor/Techni tamara ID = [id number] for PEE CARLTON YI Lab Interpretation (test Abnormal code = 06972-6) [facility]-Glucose [id number] 08:58:26 Test Item Value Reference Range Interpretation Comments POC-Glucose Meter (test 111 mg/dL 70-110 H : No tified RN/MD: code = 1538) TESTED AT [address] [address]: Drill Instructor/Techni tamara ID = [id number] for PEE CARLTON YI Lab Interpretation (test Abnormal code = 14129-7) [facility]-Glucose [id number] 08:58:26 Test Item Value Reference Range Interpretation Comments POC-Glucose Meter (test 111 mg/dL 70-110 H : No tified RN/MD: code = 1538) TESTED AT [address] [address]: Drill Instructor/Techni tamara ID = [id number] for PEE CARLTON YI Lab Interpretation (test Abnormal code = 46015-4) [facility] [id number] 08:58:26 Test Item Value Reference Range Interpretation Comments POC-Glucose Meter (test 111 mg/dL 70-110 H : No tified RN/MD: code = 1538) TESTED AT [place] [address]28[address] [facility] [place] [address]: Drill Instructor/Techni tamara ID = [id number] for PEE CARLTON Lab Interpretation (test Abnormal code = 43593-8) [facility] [id number] 08:58:26 Test Item Value Reference Range Interpretation Comments POC-GLUCOSE METER 111 mg/dL 70-110 H : Notified RN/MD: TESTED ([facility]) (test code AT [address] = 1538) [place] [address]130: Drill Instructor/Techni tamara ID = [id number] for JOYCELYN HODGE POCT-GLUCOSE [id number] 07:08:34 Test Item Value Reference Range Interpretation Comments POC-GLUCOSE METER 111 mg/dL 70-110 H : TESTED [place] [address] ([facility]) (test code [facility]ST [facility], = 1538) [place] 525633 0: Drill Instructor/Techni tamara ID = [id number] for Roberto Jean TROPONIN [id number] 07:29:58 Test Item Value Reference Interpretation Comments Range TROPONIN I (test 0.029 ng/mL See_Comment [Automated code = 3246112077) message] The system which generated this result [...] biotin. Lab Interpretation Normal (test code = 65751-8) [facility] [id number] 07:29:58 Test Item Value Reference Interpretation Comments Range TROPONIN I (test 0.029 ng/mL See_Comment [Automated code = 0339760842) message] The system which generated this result [...] biotin. Lab Interpretation Normal (test code = 57763-3) [facility]. METABOLIC PANEL (47534)2020-12-11 07:18:58 Test Item Value Reference Range Interpretation Comments NA (test code = 137 mmol/L 135-145 8569681256) K (test code = 3.6 mmol/L 3.5-5.0 8897221574) CL (test code = 102 mmol/L 98-108 9192489505) CO2 TOTAL (test code = 25 mmol/L 23-31 8624656071) AGAP (test code = 2-16 4592728083) BUN (test code = 18 mg/dL 7-23 0895126054) GLUCOSE (test code = 115 mg/dL 70-110 H 7363667115) CREATININE (test code = 1.80 mg/dL 0.50-1.04 H 2529570393) TOTAL BILI (test code = 1.1 mg/dL 0.1-1.9 9562514436) CALCIUM (test code = 9.1 mg/dL 8.6-10.6 2026893652) T PROTEIN (test code = 8.1 g/dL 6.3-8.2 6281057390) ALBUMIN (test code = 4.4 g/dL 3.5-5.0 3005051696) ALK PHOS (test code = 52 U/L 34-122 4856522690) ALTv (test code = 30 U/L 5-35 2-6) AST(SGOT) (test code = 57 U/L 13-40 H 3564735270) eGFR (test code = mL/min/1.73m2 4416623030) SKYLAR (test code = SKYLAR) Association of [...] tests). Lab Interpretation Abnormal (test code = 35003-2) [facility]. METABOLIC PANEL (81434)2020-12-11 07:18:58 Test Item Value Reference Range Interpretation Comments NA (test code = 137 mmol/L 135-145 5211772427) K (test code = 3.6 mmol/L 3.5-5.0 7449950336) CL (test code = 102 mmol/L 98-108 1953112810) CO2 TOTAL (test code = 25 mmol/L 23-31 1803489025) AGAP (test code = 2-16 6800680557) BUN (test code = 18 mg/dL 7-23 1383283119) GLUCOSE (test code = 115 mg/dL 70-110 H 3961080276) CREATININE (test code = 1.80 mg/dL 0.50-1.04 H 7883705030) TOTAL BILI (test code = 1.1 mg/dL 0.1-1.6 7508773578) CALCIUM (test code = 9.1 mg/dL 8.6-10.6 6367243428) T PROTEIN (test code = 8.1 g/dL 6.3-8.2 9531984577) ALBUMIN (test code = 4.4 g/dL 3.5-5.0 6386188517) ALK PHOS (test code = 52 U/L 34-122 0860908749) ALTv (test code = 30 U/L 5-35 1742-6) AST(SGOT) (test code = 57 U/L 13-40 H 6694771598) eGFR (test code = mL/min/1.73m2 4284065421) SKYLAR (test code = SKYLAR) Association of [...] tests). Lab Interpretation Abnormal (test code = 18645-8) [facility] NOW RAPID TESTING)2020-12-11 06:56:56 Test Item Value Reference Range Interpretation Comments SARS-CoV-2 Rapid ID NOW Positive Not Detected A (test code = 60622-6) SKYLAR (test code = SKYLAR) ID NOW COVID-19 Assay is an isothermal nucleic acid amplification test intended for the qualitative detection of nucleic acid from SARS-CoV-2 viral RNA in nasopharyngeal (ZANJERO) specimens. It is used under Emergency Use [...] indicated. Lab Interpretation Abnormal (test code = 51482-6) [facility] NOW RAPID TESTING)2020-12-11 06:56:56 Test Item Value Reference Range Interpretation Comments SARS-CoV-2 Rapid ID NOW Positive Not Detected A (test code = 91362-4) SKYLAR (test code = SKYLAR) ID NOW COVID-19 Assay is an isothermal nucleic acid amplification test intended for the qualitative detection of nucleic acid from SARS-CoV-2 viral RNA in nasopharyngeal (ZANJERO) specimens. It is used under Emergency Use [...] indicated. Lab Interpretation Abnormal (test code = 02569-2) [facility] WITH [id number] 06:53:00 Test Item Value Reference Range Interpretation Comments WBC (test code = See_Comment L [Automated 3490-2) message] The sy stem which generated this [...] (test code = 37.1 fL 39.0-49.9 L 81078-6) RDW-CV (test code = 13.0 % 12.0-15.5 788-0) PLT (test code = See_Comment L [Automated 777-3) message] The sy stem which generated this result transmitted reference range : 166 - 358 10*3/ ?L. The reference r marcos was not used to interpret this result as normal/abnormal . MPV (test code = 10.6 fL 9.5-12.9 89047-3) IPF % (test code = 2.4 % 1.3-7.7 Platelet count 9618266010) measured by fluorescence method. NRBC/100 WBC (test See_Comment [Automat ed code = 5234546280) message] The system which generated this result transmitted reference range : 0.0 - 10.0 /100 WBCs. The refer ence range was not u sed to interpret th is result as normal/abnormal . NRBC x10^3 (test code <0.01 See_Comment [Auto mated = 3942093081) message] The s ystem which generated this result transmitted reference range : 10*3/?L. The reference range was not used to interpret this result as normal/abnormal . GRAN MAT (NEUT) % 85.3 % (test code = 770-8) IMM GRAN % (test code 0.50 % = [id number]) LYMPH % (test code = 8.8 % 736-9) MONO % (test code = 5.4 % 5905-5) EOS % (test code = 0.0 % 713-8) BASO % (test code = 0.0 % 706-2) GRAN MAT x10^3(ANC) 3.30 10*3/uL 1.88-7.09 (test code = 0629270816) IMM GRAN x10^3 (test <0.03 0.00-0.06 code = 7770125130) LYMPH x10^3 (test code 0.34 10*3/uL 1.32-3.29 L = 731-0) MONO x10^3 (test code 0.21 10*3/uL 0.33-0.92 L = 742-7) EOS x10^3 (test code = <0.03 0.03-0.39 L 711-2) BASO x10^3 (test code <0.03 0.01-0.07 = 704-7) Lab Interpretation Abnormal (test code = 70596-8) [facility] WITH AIVS8904-71-53 06:53:00 Test Item Value Reference Range Interpretation Comments WBC (test code = See_Comment L [Automated 4090-2) message] The sy stem which generated this [...] (test code = 37.1 fL 39.0-49.9 L 66248-1) RDW-CV (test code = 13.0 % 12.0-15.5 788-0) PLT (test code = See_Comment L [Automated 777-3) message] The sy stem which generated this result transmitted reference range : 166 - 358 10*3/ ?L. The reference r marcos was not used to interpret this result as normal/abnormal . MPV (test code = 10.6 fL 9.5-12.9 80308-0) IPF % (test code = 2.4 % 1.3-7.7 Platelet count [id number]) measured by fluorescence method. NRBC/100 WBC (test See_Comment [Automat ed code = 1474649809) message] The system which generated this result transmitted reference range : 0.0 - 10.0 /100 WBCs. The refer ence range was not u sed to interpret th is result as normal/abnormal . NRBC x10^3 (test code <0.01 See_Comment [Auto mated = 8140065114) message] The s ystem which generated this result transmitted reference range : 10*3/?L. The reference range was not used to interpret this result as normal/abnormal . GRAN MAT (NEUT) % 85.3 % (test code = 770-8) IMM GRAN % (test code 0.50 % = 0171885648) LYMPH % (test code = 8.8 % 736-9) MONO % (test code = 5.4 % 5905-5) EOS % (test code = 0.0 % 713-8) BASO % (test code = 0.0 % 706-2) GRAN MAT x10^3(ANC) 3.30 10*3/uL 1.88-7.09 (test code = 4042042715) IMM GRAN x10^3 (test <0.03 0.00-0.06 code = 1516734678) LYMPH x10^3 (test code 0.34 10*3/uL 1.32-3.29 L = 731-0) MONO x10^3 (test code 0.21 10*3/uL 0.33-0.92 L = 742-7) EOS x10^3 (test code = <0.03 0.03-0.39 L 711-2) BASO x10^3 (test code <0.03 0.01-0.07 = 704-7) Lab Interpretation Abnormal (test code = 82046-6) [facility] HEMOGLOBIN A1C [id number] 21:52:00 Test Item Value Reference Range Interpretation Comments POCT HBA1C (test code = 4548-4) 5.5 % 4-6 [facility] HEMOGLOBIN A1C [id number] 21:52:00 Test Item Value Reference Range Interpretation Comments POCT HBA1C (test code = 4548-4) 5.5 % 4-6 [facility]2013-05-30 14:30:00 Test Item Value Reference Range Interpretation Comments CRP (test code = <1.0 mg/L See_Comment [Automated message] The CRP) system which nerated this result tra nsmitted reference range : <=4.9. The reference r marcos was not used to int erpret this result as normal/abnormal . [facility]HujzyfyPbqavomws0713-54-02 14:30:00 Test Item Value Reference Range Interpretation Comments CRP (test code = <1.0 mg/L See_Comment [Automated message] The CRP) system which nerated this result tra nsmitted reference range : <=4.9. The reference r marcos was not used to int erpret this result as normal/abnormal . [facility] CenterUhyrpavVkktwkgzd2869-49-18 14:30:00 Test Item Value Reference Range Interpretation Comments CRP (test code = <1.0 mg/L See_Comment [Automated message] The CRP) system which ge nerated this result tra nsmitted reference range : <=4.9. The reference r marcos was not used to int erpret this result as normal/abnormal . [facility] CenterOwqqnztNlustqgjw9132-57-27 14:30:00 Test Item Value Reference Range Interpretation Comments CRP (test code = <1.0 mg/L See_Comment [Automated message] The CRP) system which ge nerated this result tra nsmitted reference range : <=4.9. The reference r marcos was not used to int erpret this result as normal/abnormal . [facility] CenterMhxixzfEfdrxpqki4588-73-05 14:30:00 Test Item Value Reference Range Interpretation Comments CRP (test code = <1.0 mg/L See_Comment [Automated message] The CRP) system which ge nerated this result tra nsmitted reference range : <=4.9. The reference r marcos was not used to int erpret this result as normal/abnormal . [facility] CenterEuvbytaFgmvtglju2418-96-38 14:30:00 Test Item Value Reference Range Interpretation Comments CRP (test code = <1.0 mg/L See_Comment [Automated message] The CRP) system which ge nerated this result tra nsmitted reference range : <=4.9. The reference r marcos was not used to int erpret this result as normal/abnormal . [facility] CenterYqxxtacFcqzkwudw5631-74-64 14:30:00 Test Item Value Reference Range Interpretation Comments CRP (test code = <1.0 mg/L See_Comment [Automated message] The CRP) system which ge nerated this result tra nsmitted reference range : <=4.9. The reference r marcos was not used to int erpret this result as normal/abnormal . [facility] HospitalGbnckivFuvaozbtuu7204-87-40 11:43:00 Test Item Value Reference Range Interpretation Comments ESR (test code = ESR) 24 See_Comment [Auto mated message] The system which ge nerated this result transmit nicholas reference range : <=40. The reference range was not used to interpr et this result as daniela l/abnormal. [facility] HospitalXylqbehKheyhieuhg1318-34-59 11:43:00 Test Item Value Reference Range Interpretation Comments ESR (test code = ESR) 24 See_Comment [Auto mated message] The system which ge nerated this result transmit nicholas reference range : <=40. The reference range was not used to interpr et this result as daniela l/abnormal. [facility] HospitalFfbkkbiXmhkaexirq2605-35-26 11:43:00 Test Item Value Reference Range Interpretation Comments ESR (test code = ESR) 24 See_Comment [Auto mated message] The system which ge nerated this result transmit nicholas reference range : <=40. The reference range was not used to interpr et this result as daniela l/abnormal. [facility] HospitalBfgkghnHgiibqwooq7227-51-27 11:43:00 Test Item Value Reference Range Interpretation Comments ESR (test code = ESR) 24 See_Comment [Auto mated message] The system which ge nerated this result transmit nicholas reference range : <=40. The reference range was not used to interpr et this result as daniela l/abnormal. [facility] HospitalHctmzwhOelkpcjcox3773-80-18 11:43:00 Test Item Value Reference Range Interpretation Comments ESR (test code = ESR) 24 See_Comment [Auto mated message] The system which ge nerated this result transmit nicholas reference range : <=40. The reference range was not used to interpr et this result as daniela l/abnormal. [facility] HospitalCcounrpBclklyejhx6162-37-77 11:43:00 Test Item Value Reference Range Interpretation Comments ESR (test code = ESR) 24 See_Comment [Auto mated message] The system which ge nerated this result transmit nicholas reference range : <=40. The reference range was not used to interpr et this result as daniela l/abnormal. [facility] HospitalSlanpmgZxzajypocy0136-52-66 11:43:00 Test Item Value Reference Range Interpretation Comments ESR (test code = ESR) 24 See_Comment [Auto mated message] The system which ge nerated this result transmit nicholas reference range : <=40. The reference range was not used to interpr et this result as daniela l/abnormal. [facility] HospitalQfeegpjFkyvbmsjyn8248-66-31 10:33:00 Test Item Value Reference Range Interpretation Comments HGB (test code = HGB) 12.4 11.1-15.9 [facility] HospitalHbpavjqMesutgqimx6345-90-66 10:33:00 Test Item Value Reference Range Interpretation Comments HCT (test code = HCT) 37.0 34.0-46.6 [facility] HospitalKcilvkiQnungowiwm1688-33-58 10:33:00 Test Item Value Reference Range Interpretation Comments PLATELETS (test code = 247 X10E3/UL 140-415 PLATELETS) [facility] HospitalSdcjwngWfbbvspnaw6675-93-95 10:33:00 Test Item Value Reference Range Interpretation Comments PLATELETS (test code = 247 X10E3/UL 140-415 PLATELETS) [facility] HospitalWozzdvjIupskcjeje4950-22-22 10:33:00 Test Item Value Reference Range Interpretation Comments HGB (test code = HGB) 12.4 11.1-15.9 [facility] HospitalWvsvnmeHamawvrhap9878-04-27 10:33:00 Test Item Value Reference Range Interpretation Comments HCT (test code = HCT) 37.0 34.0-46.6 [facility] HospitalAnvnvauQrajrerwme0684-85-04 10:33:00 Test Item Value Reference Range Interpretation Comments PLATELETS (test code = 247 X10E3/UL 140-415 PLATELETS) [facility] HospitalJzonqroPetzmcwrhw9972-22-13 10:33:00 Test Item Value Reference Range Interpretation Comments HGB (test code = HGB) 12.4 11.1-15.9 [facility] HospitalSnjlovrMmnhlphcaw1708-42-57 10:33:00 Test Item Value Reference Range Interpretation Comments HCT (test code = HCT) 37.0 34.0-46.6 [facility] HospitalIpdnwdxEaqshoavsa2338-91-24 10:33:00 Test Item Value Reference Range Interpretation Comments PLATELETS (test code = 247 X10E3/UL 140-415 PLATELETS) [facility] HospitalVdkslfqAuatwvwtoe0042-46-07 10:33:00 Test Item Value Reference Range Interpretation Comments HGB (test code = HGB) 12.4 11.1-15.9 [facility] HospitalJpxuzpkWavslpbktd7549-34-45 10:33:00 Test Item Value Reference Range Interpretation Comments HCT (test code = HCT) 37.0 34.0-46.6 [facility] HospitalDfdmvtgMqwnxabyob6826-20-52 10:33:00 Test Item Value Reference Range Interpretation Comments PLATELETS (test code = 247 X10E3/UL 140-415 PLATELETS) [facility] HospitalHfqgnobRjsozekgpp3167-90-31 10:33:00 Test Item Value Reference Range Interpretation Comments HGB (test code = HGB) 12.4 11.1-15.9 [facility] HospitalMyshjmjRrgbvbgavq2782-05-59 10:33:00 Test Item Value Reference Range Interpretation Comments HCT (test code = HCT) 37.0 34.0-46.6 [facility] HospitalLkelnfaYyuiolzrar7853-58-64 10:33:00 Test Item Value Reference Range Interpretation Comments PLATELETS (test code = 247 X10E3/UL 140-415 PLATELETS) [facility] HospitalMmoatzpRiuavnkpmu2730-11-44 10:33:00 Test Item Value Reference Range Interpretation Comments HGB (test code = HGB) 12.4 11.1-15.9 [facility] HospitalSkosfdiTxzgkavepq3829-24-27 10:33:00 Test Item Value Reference Range Interpretation Comments HCT (test code = HCT) 37.0 34.0-46.6 [facility] HospitalOajefkgBloerxxjtb2297-52-97 10:33:00 Test Item Value Reference Range Interpretation Comments PLATELETS (test code = 247 X10E3/UL 140-415 PLATELETS) [facility] HospitalRemkselOcgsnuggoc6952-82-89 10:33:00 Test Item Value Reference Range Interpretation Comments HGB (test code = HGB) 12.4 11.1-15.9 [facility] HospitalTzkcrflEzbbmnotyx9747-82-37 10:33:00 Test Item Value Reference Range Interpretation Comments HCT (test code = HCT) 37.0 34.0-46.6 [facility] HospitalDdjcssfKfbklrnbyq3367-49-48 10:46:00 Test Item Value Reference Range Interpretation Comments HGB (test code = HGB) 12.4 11.5-15.0 [facility] HospitalLgtccxkJusaaudjqo2607-78-70 10:46:00 Test Item Value Reference Range Interpretation Comments HCT (test code = HCT) 37.6 34.0-44.0 [facility] HospitalDtkosadLhxbzbpsad9900-79-61 10:46:00 Test Item Value Reference Range Interpretation Comments PLATELETS (test code = 240 X10E3/UL 140-415 PLATELETS) [facility] HospitalQeqlykaKzapwggtqz5900-65-27 10:46:00 Test Item Value Reference Range Interpretation Comments HGB (test code = HGB) 12.4 11.5-15.0 [facility] HospitalXjntszkWxtzinsouj3142-78-21 10:46:00 Test Item Value Reference Range Interpretation Comments HCT (test code = HCT) 37.6 34.0-44.0 [facility] HospitalAsjohmgPewmqcodig8133-94-99 10:46:00 Test Item Value Reference Range Interpretation Comments PLATELETS (test code = 240 X10E3/UL 140-415 PLATELETS) [facility] HospitalRqikzahEypnopilxw8358-86-40 10:46:00 Test Item Value Reference Range Interpretation Comments HGB (test code = HGB) 12.4 11.5-15.0 [facility] HospitalXiuamdhDwvasojprn1389-64-58 10:46:00 Test Item Value Reference Range Interpretation Comments HCT (test code = HCT) 37.6 34.0-44.0 [facility] HospitalSvvmtmhQaofyyshju5949-06-51 10:46:00 Test Item Value Reference Range Interpretation Comments PLATELETS (test code = 240 X10E3/UL 140-415 PLATELETS) [facility] HospitalKtfyxudDtqwamowud5819-86-76 10:46:00 Test Item Value Reference Range Interpretation Comments HGB (test code = HGB) 12.4 11.5-15.0 [facility] HospitalUdalmghSwecgjmaei1845-98-02 10:46:00 Test Item Value Reference Range Interpretation Comments HCT (test code = HCT) 37.6 34.0-44.0 [facility] HospitalRibyatiDdqisvacze8383-82-66 10:46:00 Test Item Value Reference Range Interpretation Comments PLATELETS (test code = 240 X10E3/UL 140-415 PLATELETS) [facility] HospitalHsvbpleQwzofnspzr0402-11-95 10:46:00 Test Item Value Reference Range Interpretation Comments HGB (test code = HGB) 12.4 11.5-15.0 [facility] HospitalLlvwlspKosdgeygoq1597-51-79 10:46:00 Test Item Value Reference Range Interpretation Comments HCT (test code = HCT) 37.6 34.0-44.0 [facility] HospitalWrmlzjbXalcoppqfu6333-45-37 10:46:00 Test Item Value Reference Range Interpretation Comments PLATELETS (test code = 240 X10E3/UL 140-415 PLATELETS) [facility] HospitalDwwyapqEabsutmtqv1200-19-75 10:46:00 Test Item Value Reference Range Interpretation Comments HGB (test code = HGB) 12.4 11.5-15.0 [facility] HospitalGtndtohRyaruyhdoh6432-14-71 10:46:00 Test Item Value Reference Range Interpretation Comments HCT (test code = HCT) 37.6 34.0-44.0 [facility] HospitalAhlimksZdtrivdvtc3934-16-25 10:46:00 Test Item Value Reference Range Interpretation Comments PLATELETS (test code = 240 X10E3/UL 140-415 PLATELETS) [facility] HospitalJpximquMqjagphtlm8986-07-01 10:46:00 Test Item Value Reference Range Interpretation Comments HGB (test code = HGB) 12.4 11.5-15.0 [facility] HospitalArknqywVfxflipqcs3619-29-49 10:46:00 Test Item Value Reference Range Interpretation Comments HCT (test code = HCT) 37.6 34.0-44.0 [facility] HospitalEtjnxqzQfbqivzomu2395-73-16 10:46:00 Test Item Value Reference Range Interpretation Comments PLATELETS (test code = 240 X10E3/UL 140-415 PLATELETS) [facility] CenterYevczwtPgvphxclj1110-89-78 06:34:00 Test Item Value Reference Range Interpretation Comments CREATININE (test code = CREATININE) 0.97 0.57-1.00 [facility] CenterUtmvmcwDjvmatrmr2810-60-89 06:34:00 Test Item Value Reference Range Interpretation Comments CREATININE (test code = CREATININE) 0.97 0.57-1.00 [facility] CenterCzxdiujZdpbyupvp3214-59-17 06:34:00 Test Item Value Reference Range Interpretation Comments CREATININE (test code = CREATININE) 0.97 0.57-1.00 [facility] CenterYetdbhhXydlvysls2997-16-09 06:34:00 Test Item Value Reference Range Interpretation Comments CREATININE (test code = CREATININE) 0.97 0.57-1.00 [facility] CenterCihsshiFwvzcnxcv4882-50-03 06:34:00 Test Item Value Reference Range Interpretation Comments CREATININE (test code = CREATININE) 0.97 0.57-1.00 [facility] CenterCtwdhyqUvxakbvek5776-25-91 06:34:00 Test Item Value Reference Range Interpretation Comments CREATININE (test code = CREATININE) 0.97 0.57-1.00 [facility] CenterXbdmbldYlnqbygli2636-69-31 06:34:00 Test Item Value Reference Range Interpretation Comments CREATININE (test code = CREATININE) 0.97 0.57-1.00 [facility] CenterCcnqqwzWgqtkkmsx7132-27-52 06:34:00 Test Item Value Reference Range Interpretation Comments CREATININE (test code = CREATININE) 0.97 0.57-1.00 [facility] CenterQufdwwkAhhsciuhj0113-92-41 06:34:00 Test Item Value Reference Range Interpretation Comments CREATININE (test code = CREATININE) 0.97 0.57-1.00 [facility] CenterOizvdcnBxqeeaast4324-45-54 06:34:00 Test Item Value Reference Range Interpretation Comments CREATININE (test code = CREATININE) 0.97 0.57-1.00 [facility] CenterChivrfoNrkrfdccw4413-10-14 06:34:00 Test Item Value Reference Range Interpretation Comments CREATININE (test code = CREATININE) 0.97 0.57-1.00 [facility] CenterGmjmqcpLfpglurbw2780-17-34 06:34:00 Test Item Value Reference Range Interpretation Comments CREATININE (test code = CREATININE) 0.97 0.57-1.00 [facility] CenterGsbacqgGguphuurh7528-39-27 06:34:00 Test Item Value Reference Range Interpretation Comments CREATININE (test code = CREATININE) 0.97 0.57-1.00 [facility] CenterCovmniiUufvmygjy6268-21-41 06:34:00 Test Item Value Reference Range Interpretation Comments CREATININE (test code = CREATININE) 0.97 0.57-1.00 [facility] HospitalApcfuonXmfpxirrdv0172-26-41 07:25:00 Test Item Value Reference Range Interpretation Comments HGB (test code = HGB) 12.2 11.5-15.0 [facility] HospitalWaabtmvGhedcjjxgm7720-38-44 07:25:00 Test Item Value Reference Range Interpretation Comments HCT (test code = HCT) 38.0 34.0-44.0 [facility] HospitalYevxfteIvuaycrvhg0255-59-34 07:25:00 Test Item Value Reference Range Interpretation Comments PLATELETS (test code = 255 X10E3/UL 140-415 PLATELETS) [facility] HospitalAdzukogVaoayqyqmz0263-26-80 07:25:00 Test Item Value Reference Range Interpretation Comments HGB (test code = HGB) 12.2 11.5-15.0 [facility] HospitalArdprovPvmmbqsbpt4084-22-91 07:25:00 Test Item Value Reference Range Interpretation Comments HCT (test code = HCT) 38.0 34.0-44.0 [facility] HospitalUzmsyieHhvjzvyhgm6599-94-45 07:25:00 Test Item Value Reference Range Interpretation Comments PLATELETS (test code = 255 X10E3/UL 140-415 PLATELETS) [facility] HospitalJvuwcgiHyvynelpxm1366-91-16 07:25:00 Test Item Value Reference Range Interpretation Comments HGB (test code = HGB) 12.2 11.5-15.0 [facility] HospitalYhlgdvbJgpfalwztv6523-05-21 07:25:00 Test Item Value Reference Range Interpretation Comments HCT (test code = HCT) 38.0 34.0-44.0 [facility] HospitalZaibtslXtzymutsrm4736-10-50 07:25:00 Test Item Value Reference Range Interpretation Comments PLATELETS (test code = 255 X10E3/UL 140-415 PLATELETS) [facility] HospitalFrcazpgYddowymqpx3486-84-77 07:25:00 Test Item Value Reference Range Interpretation Comments HGB (test code = HGB) 12.2 11.5-15.0 [facility] HospitalWgbevdpCjbwfyjhit2271-29-43 07:25:00 Test Item Value Reference Range Interpretation Comments HCT (test code = HCT) 38.0 34.0-44.0 [facility] HospitalSlhhhwsFmhqbxnlus4213-09-56 07:25:00 Test Item Value Reference Range Interpretation Comments PLATELETS (test code = 255 X10E3/UL 140-415 PLATELETS) [facility] HospitalLvjmqpfFrnnctpomb8695-56-77 07:25:00 Test Item Value Reference Range Interpretation Comments HGB (test code = HGB) 12.2 11.5-15.0 [facility] HospitalBrtpxhcIywvtybjmi2505-54-35 07:25:00 Test Item Value Reference Range Interpretation Comments HCT (test code = HCT) 38.0 34.0-44.0 [facility] HospitalKasowshZxxpqxokkl6937-12-90 07:25:00 Test Item Value Reference Range Interpretation Comments PLATELETS (test code = 255 X10E3/UL 140-415 PLATELETS) [facility] HospitalBpsxmtiZxecmfzesg0774-79-02 07:25:00 Test Item Value Reference Range Interpretation Comments HGB (test code = HGB) 12.2 11.5-15.0 [facility] HospitalUvejkkzVelbautwtk4743-51-92 07:25:00 Test Item Value Reference Range Interpretation Comments HCT (test code = HCT) 38.0 34.0-44.0 [facility] HospitalIwrdqneAligjsslzo3204-76-57 07:25:00 Test Item Value Reference Range Interpretation Comments PLATELETS (test code = 255 X10E3/UL 140-415 PLATELETS) [facility] HospitalEcimjlzSopywgmmrp3545-47-57 07:25:00 Test Item Value Reference Range Interpretation Comments HGB (test code = HGB) 12.2 11.5-15.0 [facility] HospitalEvqgxizDgvpooincy9243-33-44 07:25:00 Test Item Value Reference Range Interpretation Comments HCT (test code = HCT) 38.0 34.0-44.0 [facility] HospitalGcnbhvsEhnlohlpnu6233-43-18 07:25:00 Test Item Value Reference Range Interpretation Comments PLATELETS (test code = 255 X10E3/UL 140-415 PLATELETS) [facility] CenterSjpezurOmesanntu6343-47-89 07:04:00 Test Item Value Reference Range Interpretation Comments CREATININE (test code = CREATININE) 0.97 4.5-12.0 [facility] CenterOoqekagCxopkqixy3588-64-16 07:04:00 Test Item Value Reference Range Interpretation Comments CREATININE (test code = CREATININE) 0.97 0.57-1.00 [facility] CenterQpthzohCkhxjuyzq7219-02-26 07:04:00 Test Item Value Reference Range Interpretation Comments CREATININE (test code = CREATININE) 0.97 0.57-1.00 [facility] CenterYxikunnDtixtujlv2542-96-41 07:04:00 Test Item Value Reference Range Interpretation Comments CREATININE (test code = CREATININE) 0.97 4.5-12.0 [facility] CenterPfajcesNazaxtgfc8732-04-89 07:04:00 Test Item Value Reference Range Interpretation Comments CREATININE (test code = CREATININE) 0.97 0.57-1.00 [facility] CenterMftrxpfUtfzvsbez4180-04-88 07:04:00 Test Item Value Reference Range Interpretation Comments CREATININE (test code = CREATININE) 0.97 0.57-1.00 [facility] CenterMsfonebSdqaclaqj8866-90-48 07:04:00 Test Item Value Reference Range Interpretation Comments CREATININE (test code = CREATININE) 0.97 4.5-12.0 [facility] CenterRtejiokJdpilifml4256-36-01 07:04:00 Test Item Value Reference Range Interpretation Comments CREATININE (test code = CREATININE) 0.97 0.57-1.00 [facility] CenterSycqkpxJniobzwmo2740-53-61 07:04:00 Test Item Value Reference Range Interpretation Comments CREATININE (test code = CREATININE) 0.97 0.57-1.00 [facility] CenterBwfjvtcNfoftrifd0673-73-01 07:04:00 Test Item Value Reference Range Interpretation Comments CREATININE (test code = CREATININE) 0.97 4.5-12.0 [facility] CenterXgxndpfIwtgsvlsu9148-33-06 07:04:00 Test Item Value Reference Range Interpretation Comments CREATININE (test code = CREATININE) 0.97 0.57-1.00 [facility] CenterCdnswwoJvcbmqgcw7632-46-27 07:04:00 Test Item Value Reference Range Interpretation Comments CREATININE (test code = CREATININE) 0.97 0.57-1.00 [place] 756811-12-03 07:04:00 Test Item Value Reference Range Interpretation Comments CREATININE (test code = CREATININE) 0.97 4.5-12.0 [facility] CenterYbazgvxSjduymvqt7039-97-81 07:04:00 Test Item Value Reference Range Interpretation Comments CREATININE (test code = CREATININE) 0.97 0.57-1.00 [facility] CenterGqluhvhCeeelzrce1455-44-80 07:04:00 Test Item Value Reference Range Interpretation Comments CREATININE (test code = CREATININE) 0.97 0.57-1.00 [facility] CenterLjqlzpiIdgqlhguu7888-48-53 07:04:00 Test Item Value Reference Range Interpretation Comments CREATININE (test code = CREATININE) 0.97 4.5-12.0 [facility] CenterFhysyfoJmkejhayg9338-16-66 07:04:00 Test Item Value Reference Range Interpretation Comments CREATININE (test code = CREATININE) 0.97 0.57-1.00 [facility] CenterDxjpxyyJqtxlxyxm8467-57-48 07:04:00 Test Item Value Reference Range Interpretation Comments CREATININE (test code = CREATININE) 0.97 0.57-1.00 [facility] CenterLkrubjiTwhwtekol2708-20-99 07:04:00 Test Item Value Reference Range Interpretation Comments CREATININE (test code = CREATININE) 0.97 4.5-12.0 [id number] 07:04:00 Test Item Value Reference Range Interpretation Comments CREATININE (test code = CREATININE) 0.97 0.57-1.00 [id number] 07:04:00 Test Item Value Reference Range Interpretation Comments CREATININE (test code = CREATININE) 0.97 0.57-1.00 [facility] Notes Date/Time Note Provider Source 2016-01-14 12:00:00-00:00 EXAM: MRI BRAIN WITHOUT CONTRAST [facility] DATE: 01/14/2016 11:47 AM CDT INDICATION: F03.90 Unspecified dementia without behavioral disturbance [...] Mild chronic small vessel ischemic change. SL: [id number] 2016-01-14 12:00:00-00:00 EXAM: MRI BRAIN WITHOUT CONTRAST [facility] DATE: 01/14/2016 11:47 AM CDT INDICATION: F03.90 Unspecified dementia without behavioral disturbance [...] Mild chronic small vessel ischemic change. SL: [id number] 2016-01-14 12:00:00-00:00 EXAM: MRI BRAIN WITHOUT CONTRAST [facility] DATE: 01/14/2016 11:47 AM CDT INDICATION: F03.90 Unspecified dementia without behavioral disturbance [...] Mild chronic small vessel ischemic change. SL: [id number]"
[2022-11-27] MEDS ORDERED: ACETAMINOPHEN 325 MG TABLET ONE (15:23)
[2022-11-27] MEDS ORDERED: HYDROCODONE/APAP 7.5/325 MG TAB ONE (15:24)
[2022-11-27 15:41] LABS: SARS-CoV-2 Antigen Rapid Res Negative (Negative)
--- NOTE | 2022-11-27 15:51 | EDPHYS ---
Physician Documentation [facility] Name: Izabela Phillips Age: 72 yrs Sex: Female : 1950 Arrival Date: 11/27/2022 Time: 14:44 Bed 9 Private MD: ED Physician Noe Layne HPI: 11/27 16:04 This 72 yrs old Black Female presents to ER via Ambulatory with complaints of Ear Pain, sb4 Headache. 16:04 The patient presents with pain, that is acute. The complaints affect the right ear. sb4 Onset: The symptoms/episode began/occurred 2 day(s) ago. Modifying factors: The symptoms are alleviated by nothing, the symptoms are aggravated by nothing. Associated signs and symptoms: Pertinent positives: cough, sinus trouble, Pertinent negatives: fever, lightheadedness, nausea, rhinorrhea, shortness of breath, sore throat. The patient has not experienced similar symptoms in the past. Historical: - Allergies: 15:00 Amoxicillin (Anaphylaxis); hb 15:00 Glipizide; hb 15:00 Sulfa (Sulfonamide Antibiotics); hb - PMHx: 15:00 Bipolar disorder; Cerebrovascular accident; Diabetes - IDDM; High Cholesterol; hb Hypertension; Rheumatoid Arthritis; sarcoidosis; - PSHx: 15:00 polyps on uterus; renal cyst removal; tubal; hb ROS: 16:04 Constitutional: Negative for fever, chills, and weight loss. sb4 16:04 ENT: Positive for ear pain, sinus congestion. 16:04 Respiratory: Positive for cough. 16:04 Neuro: Positive for headache. 16:04 All other systems are negative. Exam: 16:04 Constitutional: This is a well developed, well nourished patient who is awake, alert, sb4 and in no acute distress. Eyes: Extra-ocular motions intact. Periorbital areas with no swelling, redness, or edema. Cardiovascular: Regular rate and rhythm with a normal S1 and S2. Respiratory: Lungs have equal breath sounds bilaterally, clear to auscultation and percussion. No rales, rhonchi or wheezes noted. No increased work of breathing, no retractions or nasal flaring. Abdomen/GI: Soft, non-tender, no distension. Skin: Warm, dry with normal turgor. Normal color with no rashes, no lesions, and no evidence of cellulitis. MS/ Extremity: Pulses equal, no cyanosis. Neurovascular intact. Full, normal range of motion. 16:04 Head/face: Sinus tenderness, that is moderate. 16:04 ENT: TM's: no acute changes, bulging, is not appreciated, erythema, is not appreciated, Mouth: Oral mucosa: pink and intact, Posterior pharynx: Airway: normal, no evidence of obstruction, patent. Vital Signs: 14:59 BP 184 / 73; Pulse 84; Resp 18; Temp 98.7(O); Pulse Ox 100% on R/A; Weight 108.86 kg; hb Height 5 ft. 11 in. ; Pain 10/10; 14:59 Body Mass Index 33.47 (108.86 kg, 180.34 cm) hb 14:59 Pain Scale: Adult hb MDM: 14:56 Patient medically screened. sb4 16:04 Differential diagnosis: otitis media, otitis externa, acute otalgia, cerumen impaction, sb4 sinusitis, URI, covid, flu. Data reviewed: vital signs, nurses notes, lab test result(s), and as a result, I will discharge patient. Test considered but Not performed: CT: head CT, headache secondary to sinus pressure. Counseling: I had a detailed discussion with the patient and/or guardian regarding the historical points, exam findings, and any diagnostic results supporting the discharge/admit diagnosis, lab results, to return to the emergency department if symptoms worsen or persist or if there are any questions or concerns that arise at home. 11/27 15:10 Order name: SARS RAPID; Complete Time: 15:50 sb4 11/27 15:10 Order name: Flu; Complete Time: 15:50 sb4 Administered Medications: 15:34 Drug: Hydrocodone-Acetaminophen PO (7.5 mg-325 mg) 1 tabs Route: PO; kc6 16:00 Follow up: Response: No adverse reaction; Pain is decreased; RASS: Alert and Calm (0) kc6 15:34 Drug: Acetaminophen PO 650 mg Route: PO; kc6 16:00 Follow up: Response: No adverse reaction; Pain is decreased kc6 Disposition: 17:29 Co-signature as Attending Physician, Noe Layne MD I reviewed the patient's care rt provided by the Advanced Practice Provider and agree with the diagnosis and treatment plan. Disposition Summary: 11/27/22 15:51 Discharge Ordered Location: Home sb4 Problem: new sb4 Symptoms: have improved sb4 Condition: Stable sb4 Diagnosis - Acute sinusitis, unspecified sb4 Followup: sb4 - With: Private Physician - When: As needed - Reason: Recheck today's complaints, Continuance of care, Re-evaluation by your physician Discharge Instructions: - Discharge Summary Sheet sb4 - Sinusitis, Adult, [id number] sb4 Forms: - Medication Reconciliation Form sb4 - Thank You Letter sb4 - Antibiotic Education sb4 - Prescription Opioid Use sb4 - Patient Portal Instructions sb4 - Leadership Thank You Letter sb4 Prescriptions: - Doxycycline Hyclate 100 mg Oral Tablet - take 1 tablet by ORAL route every 12 hours; 20 tablet; Refills: 0, Product sb4 Selection Permitted Signatures: Dispatcher [employer] Jayna Barker, RN RN Leslie Quiñonez RN RN Deborah Heller, ROLF PAAlton sb4 Noe Layne MD MD rt
--- NOTE | 2022-11-27 15:51 | ER ---
Nurse's Notes [facility] [place] Name: Izaebla Minor Age: 72 yrs Sex: Female : 1950 Arrival Date: 11/27/2022 Time: 14:44 Bed 9 Private MD: Diagnosis: Acute sinusitis, unspecified Presentation: 11/27 14:59 Chief complaint: Headache and right ear pain 10/10 x 2-3 days. Coronavirus screen: At this time, the client does not indicate any symptoms associated with coronavirus-19. Ebola Screen: No symptoms or risks identified at this time. Initial Sepsis Screen: Does the patient meet any 2 criteria? No. Patient's initial sepsis screen is negative. Does the patient have a suspected source of infection? No. Patient's initial sepsis screen is negative. Risk Assessment: Do you want to hurt yourself or someone else? Patient reports no desire to harm self or others. Onset of symptoms was November 25, 2022. 14:59 Method Of Arrival: Ambulatory hb 14:59 Acuity: NIYA 4 hb Historical: - Allergies: 15:00 Amoxicillin (Anaphylaxis); hb 15:00 Glipizide; hb 15:00 Sulfa (Sulfonamide Antibiotics); hb - PMHx: 15:00 Bipolar disorder; Cerebrovascular accident; Diabetes - IDDM; High Cholesterol; hb Hypertension; Rheumatoid Arthritis; sarcoidosis; - PSHx: 15:00 polyps on uterus; renal cyst removal; tubal; hb Screenin:00 [facility] ED Fall Risk Assessment (Adult) History of falling in the last 3 months, kc6 including since admission No falls in past 3 months (0 pts) Confusion or Disorientation No (0 pts) Intoxicated or Sedated No (0 pts) Impaired Gait No (0 pts) Mobility Assist Device Used No (0 pt) Altered Elimination No (0 pt) Score/Fall Risk Level 0 - 2 = Low Risk. Abuse screen: Denies threats or abuse. Denies injuries from another. Nutritional screening: No deficits noted. Tuberculosis screening: No symptoms or risk factors identified. Assessment: 15:00 General: Appears in no apparent distress. comfortable, Behavior is calm, cooperative, kc6 appropriate for age. Pain: Complains of pain in head. Neuro: Level of Consciousness is awake, alert, obeys commands, Oriented to person, place, time, situation, Appropriate for age. Cardiovascular: Capillary refill < 3 seconds. Respiratory: Airway is patent Trachea midline Respiratory effort is even, unlabored, Respiratory pattern is regular, symmetrical. GI: No signs and/or symptoms were reported involving the gastrointestinal system. : No signs and/or symptoms were reported regarding the genitourinary system. EENT: No signs and/or symptoms were reported regarding the EENT system. Derm: No signs and/or symptoms reported regarding the dermatologic system. Skin is intact, is healthy with good turgor, Skin is pink, warm \T\ dry. Musculoskeletal: No signs and/or symptoms reported regarding the musculoskeletal system. Circulation, motion, and sensation intact. Capillary refill < 3 seconds, Range of motion: intact in all extremities. 16:00 Reassessment: Patient appears in no apparent distress at this time. No changes from kc6 previously documented assessment. Patient and/or family updated on plan of care and expected duration. Pain level reassessed. Patient is alert, oriented x 3, equal unlabored respirations, skin warm/dry/pink. Vital Signs: 14:59 BP 184 / 73; Pulse 84; Resp 18; Temp 98.7(O); Pulse Ox 100% on R/A; Weight 108.86 kg; hb Height 5 ft. 11 in. ; Pain 10/10; 14:59 Body Mass Index 33.47 (108.86 kg, 180.34 cm) hb 14:59 Pain Scale: Adult hb ED Course: 14:47 Patient arrived in ED. im 14:56 Leslie Sanford, RADHA is Primary Nurse. kc6 14:56 Deborah Bruno PA-C is PHCP. sb4 14:56 Noe Layne MD is Attending Physician. sb4 15:00 Triage completed. hb 15:00 Patient has correct armband on for positive identification. Bed in low position. Call kc6 light in reach. Side rails up X2. 15:00 Arm band placed on. kc6 15:34 SARS RAPID Sent. kc6 15:34 Flu Sent. kc6 16:02 No provider procedures requiring assistance completed. Patient did not have IV access kc6 during this emergency room visit. Administered Medications: 15:34 Drug: Hydrocodone-Acetaminophen PO (7.5 mg-325 mg) 1 tabs Route: PO; kc6 16:00 Follow up: Response: No adverse reaction; Pain is decreased; RASS: Alert and Calm (0) kc6 15:34 Drug: Acetaminophen PO 650 mg Route: PO; kc6 16:00 Follow up: Response: No adverse reaction; Pain is decreased kc6 Medication: 16:03 VIS not applicable for this client. kc6 Outcome: 15:51 Discharge ordered by . brett 16:02 Discharged to home ambulatory. kc6 16:02 Condition: stable 16:02 Discharge instructions given to patient, Instructed on discharge instructions, follow up and referral plans. medication usage, Demonstrated understanding of instructions, follow-up care, medications, Prescriptions given X 1. 16:03 Patient left the ED. kc6 Signatures: Jayna Meng RN RN Leslie Quiñonez RN RN kc6 Deborah Bruno PA-C PABlaire Ochoa
[2022-11-27 16:07] VITALS: BP 184/73; TEMP 98.7; O2SAT 100
== END 2022-11-27 16:03 | disposition home or self-care (01) ==
LOC: ER 14:44
DX: J01.90 Acute sinusitis, unspecified (principal); H92.01 Otalgia, right ear; Z20.822 Contact with and (suspected) exposure to COVID-19; Z88.1 Allergy status to other antibiotic agents; Z88.2 Allergy status to sulfonamides; Z88.8 Allergy status to other drugs, medicaments and biological substances
CPT/HCPCS: 36415; 87804; 87811; 99283

== ENCOUNTER 2022-12-19 17:54 | Emergency (ER) | payer OTHER ==
--- OUTSIDE RECORDS SUMMARY | 2022-12-19 18:08 | XMS REPORT | Continuity of Care Document ---
:1950 Author Organization [facility] t Address [address] [place] [address] Care Team Providers Name Role Phone JOSH DRISCOLL JR Primary Care Physician Unavailable CHRIS ARAUJO Attending Clinician Unavailable CHRIS ARAUJO Attending Clinician Unavailable Nato Montes MD Attending Clinician Unavailable NATO MONTES Attending Clinician Unavailable Sergei Pineda MD Attending Clinician Only, Ang Db Test Attending Clinician Unavailable Jonathan Bowen Attending Clinician JONATHAN PRESTON Attending Clinician Unavailable CARLOS ALBERTO Attending Clinician Unavailable TIAN LU Attending Clinician Unavailable Tian Lu MD Attending Clinician Josh Driscoll Attending Clinician Doctor Unassigned, [place] Attending Clinician Unavailable SELENE AMEZCUA Attending Clinician Unavailable Navin Ortiz Attending Clinician Selene Ahmadi Attending Clinician Alfonso GARCIA, Pamela Corbett Attending Clinician Unavailable Kayy Danielson Attending Clinician BOBBY HUNG Attending Clinician Unavailable Devi Liriano Attending Clinician Chris Araujo MD Attending Clinician 2, [facility] Attending Clinician Unavailable Issa Attending Clinician Unavailable NATO MONTES Admitting Clinician Unavailable SACHIJean ClaudeKELLEY Admitting Clinician Unavailable Issa Admitting Clinician Unavailable Payers Payer Name Policy Type Policy Number Effective Date Expiration Date Paulette SHELL [facility] [id number] 2018 00:00:00 [facility] - [id number] MEDICARE SOLUTIONS - MEDICARE COMPLETE PLAN 1 (MEDICARE REPLACEMENT HMO) Problems Condition Condition Condition Status Onset Resolution Last Treating Co mments Source Name Details Category Date Date Treatment Clinician Date - - Diagnosis Active 2016-01-14 [facility] UNSPECIFIE UNSPECIFIE 12-26 11:41:00 l D DEMENTIA D DEMENTIA 00:01: He raineann WITHOUT B WITHOUT B 00 Active 12/27/2015 [facility] [place] Left renal Left renal Disease Active 2014-[address] [facility] HYPERCHOLE HYPERCHOL Condition Active 2010-042013-04-19 Memoria STEROLEMIA ESTEROLEMI - 11:19:00 l A Active 00:00: Bull 02/14/2011 00 Condition 04/19/2013 [facility] BIPOLAR BIPOLAR Condition Active 2010-042013-04-19 Memoria DISORDER DISORDER -11 11:19:00 l UNSPECIFIE UNSPECIFIE 00:00: He hernesto D D Active 00 02/14/2011 Condition 04/19/2013 [facility] HYPERLIPID HYPERLIPI Condition Inactiv 2013-04-19 Memoria EMIA DEMIA e 11:19:00 l Inactive Bull Condition 04/19/2013 [facility] PAIN IN PAIN IN Condition Inactiv 2013-04-19 Memoria JOINT, JOINT, e 11:19:00 l MULTIPLE MULTIPLE Alex n SITES SITES Inactive Condition 04/19/2013 [facility] SARCOIDOSI SARCOIDOS Condition Inactiv 2013-04-19 Memoria S IS e 11:19:00 l Inactive Mobile Condition 04/19/2013 [facility] UNSPECIFIE UNSPECIFI Condition Inactiv 2013-04-19 Memoria D ED e 11:19:00 l INFLAMMATO INFLAMMATO He rmann RY RY POLYARTHRO POLYARTHRO TE TE Inactive Condition 04/19/2013 [facility] TENDINITIS Condition Inactiv 2013-04-19 Memoria , TENDINITIS e 11:19:00 l SHOULDER, , Mobile RIGHT SHOULDER, RIGHT Inactive Condition 04/19/2013 [facility] BACK PAIN, BACK Condition Inactiv 2013-04-19 Memoria LUMBAR PAIN, e 11:19:00 l LUMBAR Mobile Inactive Condition 04/19/2013 [facility] TRIGGER TRIGGER Condition Inactiv 2013-04-19 Memoria FINGER, FINGER, e 11:19:00 l INDEX INDEX Mobile FINGER FINGER Inactive Condition 04/19/2013 [facility] CARPAL CARPAL Condition Inactiv 2013-04-19 M emoria TUNNEL TUNNEL e 11:19:00 l SYNDROME, SYNDROME, Herm rojas LEFT LEFT Inactive Condition 04/19/2013 [facility] ARTHRITIS, ARTHRITIS Condition Active 2013-04-19 Memoria RHEUMATOID , 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 Condition 04/19/2013 [facility] HYPERTENSI HYPERTENS Condition Active 2013-04-19 Memoria ON ION 11:19:00 l Active Mobile Condition 04/19/2013 [facility] DIABETES DIABETES Condition Active 2013-04-19 Memoria MELLITUS, MELLITUS, 11:19:00 l TYPE I, TYPE I, Mobile ADULT ADULT ONSET ONSET Active Condition 04/19/2013 [facility] VITAMIN D VITAMIN D Condition Active 2013-04-19 [facility] DEFICIENCY DEFICIENCY 11:19:00 l Active Mobile Condition 04/19/2013 [facility] SHOULDER SHOULDER Condition Active 2013-04-19 [facility]oria PAIN, PAIN, 11:19:00 l RIGHT RIGHT Bull Active Condition 04/19/2013 [facility] UNSPECIFIE UNSPECIFI Condition Active 2013-04-19 Memoria D ED 11:19:00 l ARTHROPATH ARTHROPATH He rmann Y SITE Y SITE UNSPECIFIE UNSPECIFIE D D Active Condition 04/19/2013 [facility] No known No known Disease Unive rs active active ity of problems problems [facility] History of Past Illness Condition [...] 04-16 11:19:00 11:19:00 l TUNNEL TUNNEL 00:00: Mobile SYNDROME SYNDROME 00 Inactive 02/14/2011 Condition 04/19/2013 [...] Medical Branch Amoxicil Propensi Active Shortness of 2020-0 [facility] courtney ty to Breath 12-11 ity of adverse 00:00: [place] reaction 00 Medical s Branch Glipizid Drug Active Other (See Low low [facility] Allergy Comments) 12-18 bld sugar [facility] 00:00: Medical 00 Center GLIPIZID Allergy Active High Other [facility] 12-18 [facility] 00[facility]: [facility] [place] NO KNOWN Allergy Active [facility] NO KNOWN Drug Active Univers ALLERGIE Class ity of S [facility] Social History Social Habit Start Date Stop Date Quantity Comments Source Alcohol intake 2021-12-02 2021-12-[address] [facility] [address] Ezequiel es 00:00:00 00:00:00 non-drinker of Medical Ce nter alcohol (finding) Exposure to 2021-11-17 2021-11-27 Not sure University SARS-CoV-2 00:00:00 10:02:00 [place] [facility] (event) [facility] Tobacco use and 2015-03-02 2015-03-[address] [facility] exposure 00[facility]:00:00 non-user Medical Center Sex Assigned At [address] [facility]es 00:00:00 00:00:00 [facility] Center Smoking Status Start Date Stop Date Source Never smoked tobacco [facility] Medications Ordered Filled Start Stop Current Ordering Indication Dosage Frequency Signature Comments Components Source Medication Medication Date Date Medication? Clinician (SIG) Name Name simvastatin Yes 20mg QD Take [address] (ZOCOR) 20 8-29 by mouth [facility] tablet 09:49: nightly. [facility]i [facility] [place] furosemide Yes 20mg QD Take 20 mg [...] tablet 09:49: mellitus daily . Medical 34 Center gabapentin Yes neuropathic 300mg Q.[id number] Take [address] (NEURONTIN) 8-29 pain [id number] mg by L ukes 100 MG 09:49: [...] 20 MG 09:49: daily. Medical capsule 34 [place] divalproex Yes 500mg QD Take [address] (DEPAKOTE) 8-29 mg by [facility] 500 MG EC 09:49: mouth Medical tablet 34 daily At Center night . sertraline Yes 50mg QD Take [address] (ZOLOFT) 50 8-29 by mouth Luke s MG tablet 09:49: daily. Medica l 34 [place] potassium Yes 10meq Take [address] chloride 8-29 mEq by [facility] (KLOR-CON) 09:49: mouth as Med ical 10 MEQ CR 34 needed . [place] tablet carvedilol Yes 25mg Take [address] (COREG) 8-29 by mouth 2 [facility] 12.5 MG 09:49: (two) Medical tablet 34 times Center daily with breakfast and dinner . pioglitazon Yes 15mg QD Take [address] [facility] (ACTOS) 8-29 by mouth [facility] 15 MG 09:49: daily . Medical tablet 34 [place] amLODIPine Yes hypertensio 10mg QD Take [address] (NORVASC) 8-29 n by mouth [facility] 10 MG 09:49: daily. Medical tablet 34 [place] simvastatin Yes 20mg QD Take [address] (ZOCOR) 20 8-29 by mouth [facility] MG tablet 09:49: nightly. [facility]i [facility]rick 34 [place] furosemide Yes 20mg QD Take [address] (LASIX) 20 8-29 by mouth [facility] MG tablet 09:49: daily. Medica l 34 [place] hydroxychlo Yes rheumatoid QD Take by [facility] roquine 8-29 arthritis mouth [facility] (PLAQUENIL) 09:49: daily. Medi patrick 200 mg 34 [place] tablet losartan Yes hypertensio 100mg QD Take [address] (COZAAR) 8-29 n mg by [facility] 100 MG 09:49: mouth Medical tablet 34 daily. [place] glipiZIDE Yes type 2 5mg QD Take [address] (GLUCOTROL) 8-29 diabetes by mouth [facility] 5 MG tablet 09:49: mellitus daily . Medical 34 [place] gabapentin Yes neuropathic 300mg Q.[id number] Take [address] (NEURONTIN) 8-29 pain [id number] mg by L ukes 100 MG 09:49: 3D mouth 3 Medical capsule 34 (three) Center times daily PRN. albuterol Yes 3{puff} Inhale [address] HFA 8-29 puffs by [facility] (VENTOLIN 09:49: mouth via Med ical HFA) 90 34 inhaler 2 [place] mcg/actuati (two) on inhaler times daily as needed for Wheezing. omeprazole Yes 40mg QD Take [address] (PRILOSEC) 8-29 by mouth [facility] 20 MG 09:49: daily. Medical capsule 34 [place] divalproex Yes 500mg QD Take [address] (DEPAKOTE) 8-29 mg by [facility] 500 MG EC 09:49: mouth Medical tablet 34 daily At Center night . sertraline Yes 50mg QD Take [address] (ZOLOFT) 50 8-29 by mouth Luke s MG tablet 09:49: daily. Medica l 34 [place] potassium Yes 10meq Take [address] chloride 8-29 mEq by [facility] (KLOR-CON) 09:49: mouth as Med ical 10 MEQ CR 34 needed . [place] tablet carvedilol Yes 25mg Take [address] (COREG) 8-29 by mouth 2 [facility] 12.5 MG 09:49: (two) Medical tablet 34 times Center daily with breakfast and dinner . pioglitazon Yes 15mg QD Take [address] [facility] (ACTOS) 8-29 by mouth [facility] 15 MG 09:49: daily . Medical tablet 34 [place] amLODIPine Yes hypertensio 10mg QD Take [address] (NORVASC) 8-29 n by mouth [facility] 10 MG 09:49: daily. Medical tablet 34 [place] simvastatin Yes 20mg QD Take [address] (ZOCOR) 20 8-29 by mouth [facility] MG tablet 09:49: nightly. [facility]rick 34 [place] furosemide Yes 20mg QD Take [address] (LASIX) 20 -29 by mouth [facility] MG tablet 09:49: daily. Medica l 34 [place] hydroxychlo Yes rheumatoid QD Take by [facility] roquine 8- arthritis mouth [facility] (PLAQUENIL) 09:49: daily. [facility] 200 mg 34 [place] tablet losartan Yes hypertensio 100mg QD Take [address] (COZAAR) 8- n mg by [facility] 100 MG 09:49: mouth Medical tablet 34 daily. [place] glipiZIDE Yes type 2 5mg QD Take [address] (GLUCOTROL) 12-02 diabetes by mouth [facility] 5 MG tablet 09:49: mellitus daily . [address] gabapentin Yes neuropathic 300mg Q.[id number] Take [address] (NEURONTIN) 12-02 pain [id number] mg by L ukes 100 MG 09:49: 3D mouth 3 Medical capsule 34 (three) Center times daily PRN. albuterol Yes 3{puff} Inhale [address] HFA - puffs by [facility] (VENTOLIN 09:49: mouth via Med ical HFA) 90 34 inhaler 2 [place] mcg/actuati (two) on inhaler times daily as needed for Wheezing. omeprazole Yes 40mg QD Take [address] (PRILOSEC) 8- by mouth [facility] 20 MG 09:49: daily. Medical capsule 34 [place] divalproex Yes 500mg QD Take [address] (DEPAKOTE) 8-29 mg by [facility] 500 MG EC 09:49: mouth Medical tablet 34 daily At Center night . sertraline Yes 50mg QD Take [address] (ZOLOFT) 50 29 by mouth Luke s MG tablet 09:49: daily. Medica l [address] [place] [address] amLODIPine Yes hypertensio 10mg QD Take [address] (NORVASC) 8-29 n by mouth [facility] 10 MG 09:49: daily. Medical tablet 34 [place] simvastatin Yes 20mg QD Take [address] (ZOCOR) 20 8-29 by mouth [facility] MG tablet 09:49: nightly. Medi patrick 34 [place] furosemide Yes 20mg QD Take [address] (LASIX) 20 8-29 by mouth [facility] MG tablet 09:49: daily. Medica l 34 [place] hydroxychlo Yes rheumatoid QD Take by [facility] roquine 8-29 arthritis mouth [facility] (PLAQUENIL) 09:49: daily. [facility] 200 mg 34 [place] tablet losartan Yes hypertensio 100mg QD Take [address] (COZAAR) 8-29 n mg by [facility] 100 MG 09:49: mouth Medical tablet 34 daily. [place] glipiZIDE Yes type 2 5mg QD Take [address] (GLUCOTROL) 8-29 diabetes by mouth [facility] 5 MG tablet 09:49: mellitus daily . [address] gabapentin Yes neuropathic 300mg Q.[id number] Take [address] (NEURONTIN) 8-29 pain [id number] mg by L ukes 100 MG 09:49: 3D mouth 3 Medical capsule 34 (three) Center times daily PRN. albuterol Yes 3{puff} Inhale [address] HFA 8-29 puffs by [facility] (VENTOLIN 09:49: mouth via Med ical HFA) 90 34 inhaler 2 [place] mcg/actuati (two) on inhaler times daily as needed for Wheezing. omeprazole Yes 40mg QD Take [address] (PRILOSEC) 8-29 by mouth [facility] 20 MG 09:49: daily. Medical capsule 34 [place] divalproex Yes 500mg QD Take [address] (DEPAKOTE) 8-29 mg by [facility] 500 MG EC 09:49: mouth Medical tablet 34 daily At Center night . sertraline Yes 50mg QD Take [address] (ZOLOFT) 50 8-29 by mouth Luke s MG tablet 09:49: daily. Medica l 34 [place] potassium Yes 10meq Take [address] chloride 8-29 mEq by [facility] (KLOR-CON) 09:49: mouth as Med ical 10 MEQ CR 34 needed . [place] tablet carvedilol 2022-0 Yes 25mg Take [address] (COREG) 8-29 by mouth 2 [facility] 12.5 MG 09:49: (two) Medical tablet 34 times Center daily with breakfast and dinner . pioglitazon Yes 15mg QD Take [address] [facility] (ACTOS) 8-29 by mouth [facility] 15 MG 09:49: daily . Medical tablet 34 [place] potassium Yes 10meq Take [address] [...] MG 09:49: daily . Medical tablet 34 [place] amLODIPine Yes hypertensio 10mg QD Take [address] (NORVASC) 8-29 n by mouth [facility] 10 MG 09:49: daily. Medical tablet 34 [place] simvastatin Yes 20mg QD Take [address] (ZOCOR) 20 8-29 by mouth [facility] MG tablet 09:49: nightly. Medi patrick 34 [place] furosemide Yes 20mg QD Take [address] (LASIX) 20 8-29 by mouth [facility] MG tablet 09:49: daily. Medica l 34 [place] hydroxychlo Yes rheumatoid QD Take by [facility] roquine 8- arthritis mouth [facility] (PLAQUENIL) 09:49: daily. Medi patrick 200 mg 34 [place] tablet losartan Yes hypertensio 100mg QD Take [address] (COZAAR) 8-29 n mg by [facility] 100 MG 09:49: mouth Medical tablet 34 daily. [place] glipiZIDE Yes type 2 5mg QD Take [address] (GLUCOTROL) 8-29 diabetes by mouth [facility] 5 MG tablet 09:49: mellitus daily . [address] gabapentin Yes neuropathic 300mg Q.[id number] Take [address] (NEURONTIN) 8-29 pain [id number] mg by L ukes 100 MG 09:49: 3D mouth 3 Medical capsule 34 (three) Center times daily PRN. albuterol Yes 3{puff} Inhale [address] HFA 8-29 puffs by [facility] (VENTOLIN 09:49: mouth via Med ical HFA) 90 34 inhaler 2 [place] mcg/actuati (two) on inhaler times daily as needed for Wheezing. omeprazole Yes 40mg QD Take [address] (PRILOSEC) 8-29 by mouth [facility] 20 MG 09:49: daily. Medical capsule 34 [place] divalproex Yes 500mg QD Take [address] (DEPAKOTE) 8-29 mg by [facility] 500 MG EC 09:49: mouth Medical tablet 34 daily At Center night . sertraline Yes 50mg QD Take [address] (ZOLOFT) 50 8-29 by mouth Luke s MG tablet 09:49: daily. Medica l [address] [place] [address] potassium Yes 10meq Take [address] chloride 8-29 mEq by [facility] (KLOR-CON) 09:49: mouth as Med ical 10 MEQ CR 34 needed . [place] tablet carvedilol Yes 25mg Take [address] (COREG) 8-29 by mouth 2 [facility] 12.5 MG 09:49: (two) Medical tablet 34 times Center daily with breakfast and dinner . pioglitazon Yes 15mg QD Take [address] [facility] (ACTOS) 8-29 by mouth [facility] 15 MG 09:49: daily . Medical tablet 34 [place] amLODIPine Yes hypertensio 10mg QD Take [address] (NORVASC) 8-29 n by mouth [facility] 10 MG 09:49: daily. Medical tablet 34 [place] simvastatin Yes 20mg QD Take [address] (ZOCOR) 20 8-29 by mouth [facility] MG tablet 09:49: nightly. Medi patrick 34 [place] furosemide Yes 20mg QD Take [address] (LASIX) 20 8-29 by mouth [facility] MG tablet 09:49: daily. Medica l 34 [place] hydroxychlo Yes rheumatoid QD Take by [facility] roquine 8-29 arthritis mouth [facility] (PLAQUENIL) 09:49: daily. Medi patrick 200 mg 34 Center tablet losartan Yes hypertensio 100mg QD Take [address] (COZAAR) 8-29 n mg by [facility] 100 MG 09:49: mouth Medical tablet 34 daily. [place] glipiZIDE Yes type 2 5mg QD Take [address] (GLUCOTROL) 8 diabetes by mouth [facility] 5 MG tablet 09:49: mellitus daily . [address] gabapentin Yes neuropathic 300mg Q.[id number] Take [address] (NEURONTIN) 8- pain [id number] mg by L ukes 100 MG 09:49: 3D mouth 3 Medical capsule 34 (three) Center times daily PRN. albuterol Yes 3{puff} Inhale [address] HFA 8-29 puffs by [facility] (VENTOLIN 09:49: mouth via Med ical HFA) 90 34 inhaler 2 [place] mcg/actuati (two) on inhaler times daily as needed for Wheezing. omeprazole Yes 40mg QD Take [address] (PRILOSEC) 8-29 by mouth [facility] 20 MG 09:49: daily. Medical capsule 34 [place] divalproex Yes 500mg QD Take [address] (DEPAKOTE) 8-29 mg by [facility] 500 MG EC 09:49: mouth Medical tablet 34 daily At Center night . sertraline Yes 50mg QD Take [address] (ZOLOFT) 50 8-29 by mouth Luke s MG tablet 09:49: daily. Medica l 34 [place] potassium Yes 10meq Take [address] chloride 8-29 mEq by [facility] (KLOR-CON) 09:49: mouth as Med ical 10 MEQ CR 34 needed . [place] tablet carvedilol Yes 25mg Take [address] (COREG) 8-29 by mouth 2 [facility] 12.5 MG 09:49: (two) Medical tablet 34 times Center daily with breakfast and dinner . pioglitazon Yes 15mg QD Take [address] [facility] (ACTOS) 8-29 by mouth [facility] 15 MG 09:49: daily . Medical tablet 34 [place] amLODIPine Yes hypertensio 10mg QD Take [address] (NORVASC) 8-29 n by mouth [facility] 10 MG 09:49: daily. Medical tablet 34 [place] simvastatin Yes 20mg QD Take [address] (ZOCOR) 20 8-29 by mouth [facility] MG tablet 09:49: nightly. [facility] 34 [place] furosemide Yes 20mg QD Take [address] (LASIX) 20 8- by mouth [facility] MG tablet 09:49: daily. Medica l 34 [place] hydroxychlo Yes rheumatoid QD Take by [facility] roquine 8-29 arthritis mouth [facility] (PLAQUENIL) 09:49: daily. [facility] 200 mg 34 [place] tablet losartan Yes hypertensio 100mg QD Take [address] (COZAAR) 8- n mg by [facility] 100 MG 09:49: mouth Medical tablet 34 daily. [place] glipiZIDE Yes type 2 5mg QD Take [address] (GLUCOTROL) 8- diabetes by mouth [facility] 5 MG tablet 09:49: mellitus daily . [address] gabapentin Yes neuropathic 300mg Q.[id number] Take [address] (NEURONTIN) 8-29 pain [id number] mg by L u[facility] 100 MG 09:49: 3D mouth 3 Medical capsule 34 (three) Center times daily PRN. albuterol Yes 3{puff} Inhale [address] HFA 8-29 puffs by [facility] (VENTOLIN 09:49: mouth via Med ical HFA) 90 34 inhaler 2 [place] mcg/actuati (two) on inhaler times daily as needed for Wheezing. omeprazole Yes 40mg QD Take [address] (PRILOSEC) 8-29 by mouth [facility] 20 MG 09:49: daily. Medical capsule 34 [place] divalproex Yes 500mg QD Take [address] (DEPAKOTE) 8-29 mg by [facility] 500 MG EC 09:49: mouth Medical tablet 34 daily At Center night . sertraline Yes 50mg QD Take [address] (ZOLOFT) 50 8-29 by mouth Luke s MG tablet 09:49: daily. Medica l 34 [place] potassium Yes 10meq Take [address] chloride 8- mEq by [facility] (KLOR-CON) 09:49: mouth as [...] MG 09:49: daily . Medical tablet 34 [place] amLODIPine Yes hypertensio 10mg QD Take [address] (NORVASC) 8- n by mouth [facility] 10 MG 09:49: daily. Medical tablet 34 [place] simvastatin Yes 20mg QD Take [address] (ZOCOR) 20 8- by mouth [facility] MG tablet 09:49: nightly. [facility]i [facility]rick 34 [place] furosemide Yes 20mg QD Take [address] (LASIX) 20 8- by mouth [facility] MG tablet 09:49: daily. Medica l 34 [place] hydroxychlo Yes rheumatoid QD Take by [facility] roquine 8- arthritis mouth [facility] (PLAQUENIL) 09:49: daily. Medi patrick 200 mg 34 [place] tablet losartan Yes hypertensio 100mg QD Take [address] (COZAAR) 8- n mg by [facility] 100 MG 09:49: mouth Medical tablet 34 daily. [place] glipiZIDE Yes type 2 5mg QD Take [address] (GLUCOTROL) 8- diabetes by mouth [facility] 5 MG tablet 09:49: mellitus daily . [address] gabapentin Yes neuropathic 300mg Q.[id number] Take [address] (NEURONTIN) 8-29 pain [id number] mg by L ukes 100 MG 09:49: 3D mouth 3 Medical capsule 34 (three) Center times daily PRN. albuterol Yes 3{puff} Inhale [address] HFA 8-29 puffs by [facility] (VENTOLIN 09:49: mouth via Med ical HFA) 90 34 inhaler 2 [place] mcg/actuati (two) on inhaler times daily as needed for Wheezing. omeprazole 0 Yes 40mg QD Take [address] (PRILOSEC) 8-29 by mouth [facility] 20 MG 09:49: daily. Medical capsule 34 [place] divalproex 0 Yes 500mg QD Take [address] (DEPAKOTE) 8-29 mg by [facility] 500 MG EC 09:49: mouth Medical tablet 34 daily At Center night . sertraline 0 Yes 50mg QD Take [address] (ZOLOFT) 50 8-29 by mouth Luke s MG tablet 09:49: daily. Medica l 34 [place] potassium Yes 10meq Take [address] chloride 8-29 mEq by [facility] (KLOR-CON) 09:49: mouth as Med ical 10 MEQ CR 34 needed . [place] tablet carvedilol Yes 25mg Take [address] (COREG) 8-29 by mouth 2 [facility] 12.5 MG 09:49: (two) Medical tablet 34 times Center daily with breakfast and dinner . pioglitazon Yes 15mg QD Take [address] [facility] (ACTOS) 8-29 by mouth [facility] 15 MG 09:49: daily . Medical tablet 34 [place] amLODIPine Yes hypertensio 10mg QD Take [address] (NORVASC) 8-29 n by mouth [facility] 10 MG 09:49: daily. Medical tablet 34 [place] DULoxetine Yes 20mg QD Take [address] (CYMBALTA) 5-27 by mouth [facility] 20 MG 00:00: daily. Medical capsule 00 [place] DULoxetine Yes 20mg QD Take [address] (CYMBALTA) 5-27 by mouth [facility] 20 MG 00:00: daily. Medical capsule 00 [place] DULoxetine 0 Yes 20mg QD Take [address] (CYMBALTA) 5-27 by mouth [facility] 20 MG 00:00: daily. Medical capsule 00 [place] DULoxetine Yes 20mg QD Take [address] (CYMBALTA) 5-27 by mouth [facility] 20 MG 00:00: daily. Medical capsule 00 [place] DULoxetine 2-0 Yes 20mg QD Take [address] (CYMBALTA) 5-27 by mouth [facility] 20 MG 00:00: daily. Medical capsule 00 [place] DULoxetine 2-0 Yes 20mg QD Take [address] (CYMBALTA) 5-27 by mouth [facility] 20 MG 00:00: daily. Medical capsule 00 [place] DULoxetine 2-0 Yes 20mg QD Take [address] (CYMBALTA) 5-27 by mouth [facility] 20 MG 00:00: daily. Medical capsule 00 [place] DULoxetine 2-0 Yes 20mg QD Take [address] (CYMBALTA) 5-27 by mouth [facility] 20 MG 00:00: daily. Medical capsule 00 [place] torsemide 2-0 Yes 20mg Take 20 mg [...] [facility] anteroL 00:00: mouth via Medic al (o inhaler Center Ellipta) daily. 200-25 mcg/dose DsDv atorvastati Yes 1{tbl} QD Take [address] [facility] (LIPITOR) 3-01 tablet by [facility] es 40 MG 00:00: mouth Medical tablet 00 daily. Center fluticasone Yes 1{puff} QD Inhale [address] furoate-tanya 3-01 puff by [facility] anteroL 00:00: mouth via Medic al (o inhaler Center Ellipta) daily. 200-25 mcg/dose DsDv atorvastati Yes 1{tbl} QD Take [address] [facility] (LIPITOR) 3-01 tablet by [facility] es 40 MG 00:00: mouth Medical tablet 00 daily. Center fluticasone Yes 1{puff} QD Inhale [address] furoate-tanya 3-01 puff by [facility] anteroL 00:00: mouth via Medic al (o inhaler Center Ellipta) daily. 200-25 mcg/dose DsDv [...] MG 00:00: mouth Medical tablet 00 daily. [place] fluticasone Yes 1{puff} QD Inhale [address] furoate-tanya 3-01 puff by [facility] anteroL 00:00: mouth via Medic al (Breo 00 inhaler Center Ellipta) daily. 200-25 mcg/dose DsDv atorvastati Yes 1{tbl} QD Take [address] [facility] (LIPITOR) 3-01 tablet by [facility] es 40 MG 00:00: mouth Medical tablet 00 daily. [place] fluticasone Yes 1{puff} QD Inhale [address] furoate-tanya 3-01 puff by [facility] anteroL 00:00: mouth via Medic al (Breo 00 inhaler Center Ellipta) daily. 200-25 mcg/dose DsDv atorvastati Yes 1{tbl} QD Take [address] [facility] (LIPITOR) 3-01 tablet by [facility] es 40 MG 00:00: mouth Medical tablet 00 daily. [place] fluticasone Yes 1{puff} QD Inhale [address] furoate-tanya 3-01 puff by [facility] anteroL 00:00: mouth via Medic al (Breo 00 inhaler Center Ellipta) daily. 200-25 mcg/dose DsDv atorvastati Yes 1{tbl} QD Take [address] [facility] (LIPITOR) 3-01 tablet by [facility] es 40 MG 00:00: mouth Medical tablet 00 daily. [place] AMLODIPINE 0 Yes [id number] Take 1 Un julio 10 mg 1-18 tablet by ity of tablet 00:00: mouth once daily Medical Branch AMLODIPINE 2021-0 Yes [id number] Take 1 Un julio 10 mg 1-18 tablet by ity of tablet 00:00: mouth once daily Medical Branch maalox:diph 0 2020- No 15mL 15 mL, Uni vers enhydrAMINE 12-11 09-07 Oral, ity of :lidocaine 07:30: 06:48 ONCE, 1 Fausto as 2 % viscous 00 :00 dose, Tue Med ical 1:1:1 12/11/20 at [place] ([facility] [address], [facility]) Routine oral suspension 15 mL albuterol 2020- No 6{puff} 6 Puff, U nivers (VENTOLIN) 12-11 Inhalation it y of inhaler 6 07:30: 07:02 , [place] :[place] dose, [facility]20 at [place] [address], CAITLIN NaCl 0.9% 2020- No 1000mL at 999 Uni vers (NS) bolus 12-11 mL/hr, ity of infusion 07:30: 07:44 1,000 mL, [place] 1,000 mL 00 [facility] Tu [facility]20 at [facility], STAT acetaminoph No 1000mg 1,000 mg, Univers en 12-11 Oral, ity of (TYLENOL) 07:30: 06:30 [place] :[place] dose, [facility] 1,000 mg 12/11/20 at [place] [address], Routine maalox:diph No 15mL 15 mL, Uni vers enhydrAMINE 12-11 Oral, ity of :lidocaine 07:30: 06:48 ONCE, 1 [place] 2 % viscous 00 :00 dose, Tue Med ical 1:1:1 12/11/20 at [place] ([place] [address], [facility]) Routine oral suspension 15 mL albuterol 0 2020- No 6{puff} 6 Puff, U nivers (VENTOLIN) 12-11 Inhalation it y of inhaler 6 07:30: 07:02 , [place] :[place] dose, [facility] 12[facility]20 at [place] [address], CAITLIN NaCl 0.9% 2020- No 1000mL at 999 Uni vers (NS) bolus 12-11 mL/hr, ity of infusion 07:30: 07:44 1,000 mL, [place] 1,000 mL 00 :[facility], 12/11[facility]20 at 0230, STAT acetaminoph 2020- No 1000mg 1,000 mg, Univers en 12-11- Oral, ity of (TYLENOL) 07:30: 06:30 [place] :[place] dose, [facility] 1,000 mg 12/11/20 at Branch 0230, Routine ondansetron 0 Yes [id number] 4mg Take 1 Univers 4 mg 9-07 tablet by ity of disintegrat 00:00: mouth [place] ing tablet 00 every 8 Medica l (eight) Branch hours as needed for Nausea and Vomiting (N/V). albuterol 0 Yes [id number] 6{puff} Inhale 6 Univers 90 9-07 Puffs ity of mcg/actuati 00:00: every 4 [place] on inhaler 00 (four) Medical hours as Branch needed for Wheezing or Shortness of Breath. benzonatate 0 Yes [id number] 100mg Take 1 [facility] 100 mg 9-07 capsule by ity of capsule 00:00: mouth 3 [place] 00 (three) Medical times Branch daily as needed for Cough. ondansetron 0 Yes [id number] 4mg Take 1 [facility] 4 mg 9-07 tablet by ity of disintegrat 00:00: mouth [place] ing tablet 00 every 8 Medica l (eight) Branch hours as needed for Nausea and Vomiting (N/V). albuterol 0 Yes [id number] 6{puff} Inhale 6 [facility] 90 9-07 Puffs ity of mcg/actuati 00:00: every 4 [place] inhaler 00 (four) Medical hours as Branch needed for Wheezing or Shortness of Breath. benzonatate 2020-0 Yes [id number] 100mg Take 1 [facility] 100 mg 9-07 capsule by ity of capsule 00:00: mouth 3 [place] 00 (three) Medical times Branch daily as needed for Cough. ondansetron 2020-0 Yes [id number] 4mg Take 1 [facility] 4 mg 9-07 tablet by ity of disintegrat 00:00: mouth [place] ing tablet 00 every 8 Medica l (eight) Branch hours as needed for Nausea and Vomiting (N/V). albuterol 2020-0 Yes [id number] 6{puff} Inhale 6 [facility] 90 9-07 Puffs ity of mcg/actuati 00:00: every 4 [place] inhaler 00 (four) Medical hours as Branch needed for Wheezing or Shortness of Breath. benzonatate 2020-0 Yes [id number] 100mg Take 1 [facility] 100 mg 9-07 capsule by ity of capsule 00:00: mouth 3 [place] 00 (three) Medical times Branch daily as needed for Cough. ondansetron 2020-0 Yes [id number] 4mg Take 1 [facility] 4 mg 9-07 tablet by ity of disintegrat 00:00: mouth [place] ing tablet 00 every 8 Medica l (eight) Branch hours as needed for Nausea and Vomiting (N/V). albuterol 0 Yes [id number] 6{puff} Inhale 6 [facility] 90 9-07 Puffs ity of mcg/actuati 00:00: every 4 [place] inhaler 00 (four) Medical hours as Branch needed for Wheezing or Shortness of Breath. benzonatate 0 Yes [id number] 100mg Take 1 [facility] 100 mg 9-07 capsule by ity of capsule 00:00: mouth 3 [place] 00 (three) Medical times Branch daily as needed for Cough. ondansetron 2020-0 Yes [id number] 4mg Take 1 Univers 4 mg 9-07 tablet by ity of disintegrat 00:00: mouth [place] ing tablet 00 every 8 Medica l (eight) Branch hours as needed for Nausea and Vomiting (N/V). albuterol 2020-0 Yes [id number] 6{puff} Inhale 6 [facility] 90 9-07 Puffs ity of mcg/actuati 00:00: every 4 [place] inhaler 00 (four) Medical hours as Branch needed for Wheezing or Shortness of Breath. benzonatate 2020-0 Yes [id number] 100mg Take 1 [facility] 100 mg 9-07 capsule by ity of capsule 00:00: mouth 3 [place] 00 (three) Medical times Branch daily as needed for Cough. ondansetron 2020-0 Yes [id number] 4mg Take 1 Univers 4 mg 9-07 tablet by ity of disintegrat 00:00: mouth [place] ing tablet 00 every 8 Medica l (eight) Branch hours as needed for Nausea and Vomiting (N/V). albuterol 2020-0 Yes [id number] 6{puff} Inhale 6 Univers 90 9-07 Puffs ity of mcg/actuati 00:00: every 4 [place] inhaler 00 (four) Medical hours as Branch needed for Wheezing or Shortness of Breath. benzonatate 2020-0 Yes [id number] 100mg Take 1 [facility] 100 mg 9-07 capsule by ity of capsule 00:00: mouth 3 [place] 00 (three) Medical times Branch daily as needed for Cough. ondansetron 2020-0 Yes [id number] 4mg Take 1 Univers 4 mg 9-07 tablet by ity of disintegrat 00:00: mouth [place] ing tablet 00 every 8 Medica l (eight) Branch hours as needed for Nausea and Vomiting (N/V). albuterol 2020-0 Yes [id number] 6{puff} Inhale 6 [facility] 90 9-07 Puffs ity of mcg/actuati 00:00: every 4 [place] inhaler 00 (four) Medical hours as Branch needed for Wheezing or Shortness of Breath. benzonatate 2020-0 Yes [id number] 100mg Take 1 [facility] 100 mg 9-07 capsule by ity of capsule 00:00: mouth 3 [place] 00 (three) Medical times Branch daily as needed for Cough. ondansetron 2020-0 Yes [id number] 4mg Take 1 Univers 4 mg 9-07 tablet by ity of disintegrat 00:00: mouth [place] ing tablet 00 every 8 Medica l (eight) Branch hours as needed for Nausea and Vomiting (N/V). albuterol 2020-0 Yes [id number] 6{puff} Inhale 6 [facility] 90 9-07 Puffs ity of mcg/actuati 00:00: every 4 [place] inhaler 00 (four) Medical hours as Branch needed for Wheezing or Shortness of Breath. benzonatate 2020-0 Yes [id number] 100mg Take 1 [facility] 100 mg 9-07 capsule by ity of capsule 00:00: mouth 3 [place] 00 (three) Medical times Branch daily as needed for Cough. ondansetron 2020-0 Yes [id number] 4mg Take 1 [facility] 4 mg 9-07 tablet by ity of disintegrat 00:00: mouth [place] ing tablet 00 every 8 Medica l (eight) Branch hours as needed for Nausea and Vomiting (N/V). albuterol 2020-0 Yes [id number] 6{puff} Inhale 6 [facility] 90 9-07 Puffs ity of mcg/actuati 00:00: every 4 [place] inhaler 00 (four) Medical hours as Branch needed for Wheezing or Shortness of Breath. benzonatate 2020-0 Yes [id number] 100mg Take 1 Univers 100 mg 9-07 capsule by ity of capsule 00:00: mouth 3 [place] 00 (three) Medical times Branch daily as needed for Cough. ondansetron 2020-0 Yes [id number] 4mg Take 1 Univers 4 mg 9-07 tablet by ity of disintegrat 00:00: mouth [place] ing tablet 00 every 8 Medica l (eight) Branch hours as needed for Nausea and Vomiting (N/V). albuterol 2020-0 Yes [id number] 6{puff} Inhale 6 [facility] 90 9-07 Puffs ity of mcg/actuati 00:00: every 4 [place] inhaler 00 (four) Medical hours as Branch needed for Wheezing or Shortness of Breath. benzonatate 2020-0 Yes [id number] 100mg Take 1 Univers 100 mg 9-07 capsule by ity of capsule 00:00: mouth 3 [place] 00 (three) Medical times Branch daily as needed for Cough. ondansetron 2020-0 Yes [id number] 4mg Take 1 Univers 4 mg 9-07 tablet by ity of disintegrat 00:00: mouth [place] ing tablet 00 every 8 Medica l (eight) Branch hours as needed for Nausea and Vomiting (N/V). albuterol 2020-0 Yes [id number] 6{puff} Inhale 6 [facility] 90 9-07 Puffs ity of mcg/actuati 00:00: every 4 [place] inhaler 00 (four) Medical hours as Branch needed for Wheezing or Shortness of Breath. benzonatate 2020-0 Yes [id number] 100mg Take 1 [facility] 100 mg 9-07 capsule by ity of capsule 00:00: mouth 3 [place] 00 (three) Medical times Branch daily as needed for Cough. carvediloL 2020-0 Yes 25mg Take 25 mg U nivers (COREG) 25 7-23 by mouth 2 ity of mg tablet 21:40: (two) [place] 12 times Medical daily with Branch meals. carvediloL 2021-0 Yes 25mg Take 25 mg U nivers (COREG) 25 7-23 by mouth 2 ity of mg tablet 21:40: (two) [place] 12 times Medical daily with Branch meals. carvediloL 2021-0 Yes 25mg Take 25 mg U nivers (COREG) 25 7-23 by mouth 2 ity of mg tablet 21:40: (two) [place] 12 times Medical daily with Branch meals. carvediloL 2021-0 Yes 25mg Take 25 mg U nivers (COREG) 25 7-23 by mouth 2 ity of mg tablet 21:40: (two) [place] 12 times Medical daily with Branch meals. carvediloL 2021-0 Yes 25mg Take 25 mg U nivers (COREG) 25 7-23 by mouth 2 ity of mg tablet 21:40: (two) [place] 12 times Medical daily with Branch meals. carvediloL 2021-0 Yes 25mg Take 25 mg U nivers (COREG) 25 7-23 by mouth 2 ity of mg tablet 21:40: (two) [place] 12 times Medical daily with Branch meals. carvediloL 2021-0 Yes 25mg Take 25 mg U nivers (COREG) 25 7-23 by mouth 2 ity of mg tablet 21:40: (two) [place] 12 times Medical daily with Branch meals. carvediloL 2021-0 Yes 25mg Take 25 mg U nivers (COREG) 25 7-23 by mouth 2 ity of mg tablet 16:40: (two) [place] 12 times Medical daily with Branch meals. carvediloL 2021-0 Yes 25mg Take 25 mg U nivers (COREG) 25 7-23 by mouth 2 ity of mg tablet 16:40: (two) [place] 12 times Medical daily with Branch meals. carvediloL 2021-0 Yes 25mg Take 25 mg U nivers (COREG) 25 7-23 by mouth 2 ity of mg tablet 16:40: (two) [place] 12 times Medical daily with Branch meals. carvediloL 2021-0 Yes 25mg Take 25 mg U nivers (COREG) 25 7-23 by mouth 2 ity of mg tablet 16:40: (two) [place] 12 times Medical daily with Branch meals. [...] daily with Branch meals. amLODIPine 2020-0 Yes [id number] 10mg Take 1 [place] 10 mg 7-23 tablet by ity of tablet 00:00: mouth [place] 00 daily. Medical Branch amLODIPine 2020-0 Yes [id number] 10mg Take 1 [place] 10 mg 7-23 tablet by ity of tablet 00:00: mouth [place] 00 daily. Medical Branch amLODIPine 2020-0 Yes [id number] 10mg Take 1 [place] 10 mg 7-23 tablet by ity of tablet 00:00: mouth [place] 00 daily. Medical Branch amLODIPine 2020-0 Yes [id number] 10mg Take 1 [place] 10 mg 7-23 tablet by ity of tablet 00:00: mouth [place] 00 daily. Medical Branch amLODIPine 2020-0 Yes [id number] 10mg Take 1 [place] 10 mg 7-23 tablet by ity of tablet 00:00: mouth [place] 00 daily. Medical Branch amLODIPine 2020-0 Yes [id number] 10mg Take 1 [place] 10 mg 7-23 tablet by ity of tablet 00:00: mouth [place] 00 daily. Medical Branch amLODIPine 2020-0 Yes [id number] 10mg Take 1 [place] 10 mg 7-23 tablet by ity of tablet 00:00: mouth [place] 00 daily. Medical Branch amLODIPine 2020-0 Yes [id number] 10mg Take 1 [place] 10 mg 7-23 tablet by ity of tablet 00:00: mouth [place] 00 daily. Medical Branch amLODIPine 2020-0 Yes [id number] 10mg Take 1 [place] 10 mg 7-23 tablet by ity of tablet 00:00: mouth [place] 00 daily. Medical Branch amLODIPine 2020-0 Yes [id number] 10mg Take 1 [place] 10 mg 7-23 tablet by ity of tablet 00:00: mouth [place] 00 daily. Medical Branch amLODIPine 2020-0 Yes [id number] 10mg Take 1 [place] 10 mg 7-23 tablet by ity of tablet 00:00: mouth [place] 00 daily. Medical Branch amLODIPine 2020-0 Yes [id number] 10mg Take 1 [place] 10 mg 7-23 tablet by ity of tablet 00:00: mouth [place] 00 daily. Medical Branch amLODIPine 2020-0 2022- No [id number] 10mg Take 1 U nivers 10 mg 7-23 -18 tablet by ity of tablet 00:00: 00:00 mouth [place] 00 :00 daily. Medical Branch gabapentin 2020-0 Yes Take by Univ ers ER 300 mg 7-06 mouth ity of tablet, 15:13: daily. [place] extended 54 Medical release 24 Branch hr gabapentin 1-0 Yes Take by Univ ers ER 300 mg 7-06 mouth ity of tablet, 15:13: daily. [place] extended 54 Medical release 24 Branch hr gabapentin 1-0 Yes Take by Univ ers ER 300 mg 7-06 mouth ity of tablet, 15:13: daily. [place] extended 54 Medical release 24 Branch hr gabapentin 1-0 Yes Take by Univ ers ER 300 mg 7-06 mouth ity of tablet, 15:13: daily. [place] extended 54 Medical release 24 Branch hr gabapentin 1-0 Yes Take by Univ ers ER 300 [...] Branch hr gabapentin 2021-0 Yes Take by [facility] ers ER 300 mg 7-06 mouth ity of tablet, 10:13: daily. [place] extended 54 Medical release 24 Branch hr gabapentin 2021-0 Yes Take by Univ ers ER 300 mg 7-06 mouth ity of tablet, 10:13: daily. [place] extended 54 Medical release 24 Branch hr gabapentin 2021-0 Yes Take by Univ ers ER 300 mg 7-06 mouth ity of tablet, 10:13: daily. [place] extended 54 Medical release 24 Branch hr predniSONE 2021-0 Yes 5mg Take 5 mg [place] 5 mg tablet 6-30 by mouth ity of 00:00: daily. [place] 00 Medical Branch torsemide 2021-0 Yes 10mg Take 10 mg [place] 20 mg 6-30 by mouth 3 ity of tablet 00:00: (three) [place] 00 times Medical daily. Branch predniSONE 2021-0 Yes 5mg Take 5 mg [place] 5 mg tablet 6-30 by mouth ity of 00:00: daily. [place] [facility] torsemide 2021-0 Yes 20mg Take 20 mg [place] 20 mg 6-30 by mouth ity of tablet 00:00: daily. [place] [address] Medical Branch predniSONE 2021-0 Yes 5mg Take 5 mg [place] 5 mg tablet 6-30 by mouth ity of 00:00: daily. [place] [address] Medical Branch torsemide 2021-0 Yes 20mg Take [...] mouth 3 ity of tablet 00:00: (three) [place] 00 times Medical daily. Branch predniSONE 2021-0 Yes 5mg Take 5 mg [place] 5 mg tablet 6-30 by mouth ity of 00:00: daily. Medical Branch torsemide 2021-0 Yes 10mg Take 10 mg [place] 20 mg 6-30 by mouth 3 ity of tablet 00:00: (three) [place] 00 times Medical daily. Branch predniSONE 2021-0 Yes 5mg Take 5 mg [place] 5 mg tablet 6-30 by mouth ity of 00:00: daily. Medical Branch torsemide 2021-0 Yes 10mg Take 10 mg [place] 20 mg 6-30 by mouth 3 ity of tablet 00:00: (three) [place] 00 times Medical daily. Branch predniSONE 2021-0 Yes 5mg Take 5 mg [place] 5 mg tablet 6-30 by mouth ity of 00:00: daily. Medical Branch torsemide 2021-0 Yes 10mg Take 10 mg [place] 20 mg 6-30 by mouth 3 ity of tablet 00:00: (three) [place] 00 times Medical daily. Branch predniSONE 2021-0 [...] [place] 00 times Medical daily. Branch predniSONE 2020-0 Yes 5mg Take 5 mg [place] 5 mg tablet 6-30 by mouth ity of 00:00: daily. Medical Branch torsemide 2020-0 Yes 10mg Take 10 mg [place] 20 mg 6-30 by mouth 3 ity of tablet 00:00: (three) [place] 00 times Medical daily. Branch predniSONE 2020-0 Yes 5mg Take 5 mg [place] 5 mg tablet 6-30 by mouth ity of 00:00: daily. [place] Medical Branch torsemide 2020-0 Yes 10mg Take 10 mg [place] 20 mg 6-30 by mouth 3 ity of tablet 00:00: (three) [place] 00 times Medical daily. Branch albuterol 2020-0 [...] by mouth 3 ity of 00:00: (three) [place] 00 times Medical daily. Branch baclofen 10 2020-0 Yes 10mg Take 10 mg Univers mg tablet 4-28 by mouth 3 ity of 00:00: (three) [place] 00 times Medical daily. Branch baclofen 10 2020-0 Yes 10mg Take 10 mg Univers mg tablet 4-28 by mouth 3 ity of 00:00: (three) [place] 00 times Medical daily. Branch baclofen 10 [...] [place] 00 times Medical daily. Branch pioglitazon 2020-0 Yes 15mg Take 15 mg Univers e 15 mg 4-23 by mouth ity of tablet 00:00: daily. [facility] pioglitazon Yes 15mg Take 15 mg Univers e 15 mg 4-23 by mouth ity of tablet 00:00: daily. [facility] pioglitazon Yes 15mg Take 15 mg Univers e 15 mg 4-23 by mouth ity of tablet 00:00: daily. [facility] pioglitazon Yes 15mg Take 15 mg Univers e 15 mg 4-23 by mouth ity of tablet 00:00: daily. [facility] pioglitazon Yes 15mg Take 15 mg Univers e 15 mg 4-23 by mouth ity of tablet 00:00: daily. [place] [facility] pioglitazon Yes 15mg Take 15 mg Univers e 15 mg 4-23 by mouth ity of tablet 00:00: daily. [place] [facility] pioglitazon Yes 15mg Take 15 mg Univers e 15 mg 4-23 by mouth ity of tablet 00:00: daily. [facility] pioglitazon Yes 15mg Take 15 mg Univers e 15 mg 4-23 by mouth ity of tablet 00:00: daily. [place] [facility] pioglitazon Yes 15mg Take 15 mg Univers e 15 mg 4-23 by mouth ity of tablet 00:00: daily. [place] [facility] pioglitazon Yes 15mg Take 15 mg Univers e 15 mg 4-23 by mouth ity of tablet 00:00: daily. [facility] pioglitazon Yes 15mg Take 15 mg Univers e 15 mg 4-23 by mouth ity of tablet 00:00: daily. [place] [facility] pioglitazon Yes 15mg Take 15 mg Univers e 15 mg 4-23 by mouth ity of tablet 00:00: daily. [place] [facility] pioglitazon Yes 15mg Take 15 mg Univers e 15 mg 4-23 by mouth ity of tablet 00:00: daily. [place] [facility] pioglitazon Yes 15mg Take 15 mg Univers e 15 mg 4-23 by mouth ity of tablet 00:00: daily. [facility] Branch pioglitazon Yes 15mg Take 15 mg [...] by mouth ity of tablet 00:00: daily. [place] [facility] Branch divalproex 2014-04 Yes 500mg Take 500 Un [...] mouth ity of mg tablet 00:00: daily. [place] [facility] SERTraline 2014-04 Yes 50mg Take 50 mg U nivers (ZOLOFT) 50 0-13 by mouth ity of mg tablet 00:00: daily. [place] [facility] SERTraline 2014-04 Yes 50mg Take 50 mg U nivers (ZOLOFT) 50 0-13 by mouth ity of mg tablet 00:00: daily. [facility] SERTraline 2014-04 Yes 50mg Take 50 mg U nivers (ZOLOFT) 50 0-13 by mouth ity of mg tablet 00:00: daily. [place] [facility] SERTraline 2014-04 Yes 50mg Take 50 mg U nivers (ZOLOFT) 50 0-13 by mouth ity of mg tablet 00:00: daily. [place] [facility] SERTraline 2014-04- No 50mg Take 50 mg Univers (ZOLOFT) 50 0-13 07-23 by mouth ity of mg tablet 00:00: 00:00 daily. [place] 00 : [facility] SERTraline 2014-04- No 50mg Take 50 mg Univers (ZOLOFT) 50 0-13 07-23 by mouth ity of mg tablet 00:00: 00:00 daily. [place] 00 :00 [facility] amLODIPine 2014-04 Yes 10mg Take 10 mg U nivers (NORVASC) 0-06 by mouth ity of 10 mg 00:00: daily. [place] tablet [facility] amLODIPine 2014-04 Yes 10mg Take 10 mg U nivers (NORVASC) 0-06 by mouth ity of 10 mg 00:00: daily. [place] tablet [facility] amLODIPine 2014-04 Yes 10mg Take 10 mg U nivers (NORVASC) 0-06 by mouth ity of 10 mg 00:00: daily. [place] tablet [facility] amLODIPine 2014-04 Yes 10mg Take 10 mg U nivers (NORVASC) 0-06 by mouth ity of 10 mg 00:00: daily. [place] tablet [facility] amLODIPine 2014-04 Yes 10mg Take 10 mg U nivers (NORVASC) 0-06 by mouth ity of 10 mg 00:00: daily. [place] tablet Medical Branch amLODIPine 2014-04 Yes 10mg [...] mouth ity of 10 mg 00:00: daily. tablet Medical Branch amLODIPine 2014-04 Yes 10mg [...] tablet 00:00: 00:00 daily. [place] 00 :00 [facility] simvastatin 2020- No 40mg Take 40 mg [...] No 2.5{spr Apply 2.5 Univers rilocaine 9-02 10-26 ay} Sprays to ity of (EMLA) 00:00: [...] y of 5 mg tablet 00:00: (two) [place] 00 times Medical daily. Branch omeprazole Yes [...] ity o f 40 mg 00:00: daily. [place] capsule 00 Medical Branch fluticasone Yes 50{spra Use 50 U nivers 50 8-28 y} Sprays in ity of mcg/actuati 00:00: each [place] on nasal 00 nostril Medical spray daily. 2 Branch puffs once daily glipiZIDE 2014-0 Yes 5mg Take 5 mg Uni vers (GLUCOTROL) 8-28 by mouth 2 it y of 5 mg tablet 00:00: (two) [place] 00 times Medical daily. Branch omeprazole Yes 40mg Take 40 mg U nivers (PRILOSEC) 8-28 by mouth ity o f 40 mg 00:00: daily. [place] capsule Medical Branch fluticasone Yes 50{spra Use 50 U nivers 50 8-28 y} Sprays in ity of mcg/actuati 00:00: each [place] on nasal 00 nostril Medical spray daily. 2 Branch puffs once daily glipiZIDE 2014-0 Yes 5mg Take 5 mg Uni vers (GLUCOTROL) 8-28 by mouth 2 it y of 5 mg tablet 00:00: (two) [place] 00 times Medical daily. Branch omeprazole 0 Yes 40mg Take 40 mg U nivers (PRILOSEC) 8-28 by mouth ity o f 40 mg 00:00: daily. [place] capsule Medical Branch fluticasone Yes 50{spra Use 50 U nivers 50 8-28 y} Sprays in ity of mcg/actuati 00:00: each [place] on nasal 00 nostril Medical spray daily. 2 Branch puffs once daily glipiZIDE 2014-0 Yes 5mg Take 5 mg Uni vers (GLUCOTROL) 8-28 by mouth 2 it y of 5 mg tablet 00:00: (two) [place] 00 times Medical daily. Branch omeprazole Yes 40mg Take 40 mg U nivers (PRILOSEC) 8-28 by mouth ity o f 40 mg 00:00: daily. [place] capsule Medical Branch fluticasone 0 Yes 50{spra Use 50 U nivers 50 8-28 y} Sprays in ity of mcg/actuati 00:00: each [place] on nasal 00 nostril Medical spray daily. 2 Branch puffs once daily glipiZIDE 2014-0 Yes 5mg Take 5 mg Uni vers (GLUCOTROL) 8-28 by mouth 2 it y of 5 mg tablet 00:00: (two) [place] 00 times Medical daily. Branch omeprazole Yes 40mg Take 40 mg U nivers (PRILOSEC) 8-28 by mouth ity o f 40 mg 00:00: daily. [facility] Branch fluticasone Yes 50{spra Use 50 U nivers 50 8-28 y} Sprays in ity of mcg/actuati 00:00: each [place] on nasal 00 nostril Medical spray daily. 2 Branch puffs once daily omeprazole Yes 40mg Take 40 mg U nivers (PRILOSEC) 8-28 by mouth ity o f 40 mg 00:00: daily. [address] fluticasone Yes 50{spra Use 50 U nivers 50 8-28 y} Sprays in ity of mcg/actuati 00:00: each [place] on nasal 00 nostril Medical spray daily. 2 Branch puffs once daily omeprazole Yes 40mg Take 40 mg U nivers (PRILOSEC) 8-28 by mouth ity o f 40 mg 00:00: daily. [address] Branch fluticasone Yes 50{spra Use 50 U nivers 50 8-28 y} Sprays in ity of mcg/actuati 00:00: each [place] on nasal 00 nostril Medical spray daily. 2 Branch puffs once daily omeprazole Yes 40mg Take 40 mg U nivers (PRILOSEC) 8-28 by mouth ity o f 40 mg 00:00: daily. [address] Branch fluticasone Yes 50{spra Use 50 U nivers 50 8-28 y} Sprays in ity of mcg/actuati 00:00: each [place] on nasal 00 nostril Medical spray daily. 2 Branch puffs once daily fluticasone Yes 50{spra Use 50 U nivers 50 8-28 y} Sprays in ity of mcg/actuati 00:00: each [place] on nasal 00 nostril Medical spray daily. 2 Branch puffs once daily omeprazole Yes 40mg Take 40 mg U nivers (PRILOSEC) 8-28 by mouth ity o f 40 mg 00:00: daily. [address] omeprazole Yes 40mg Take 40 mg U nivers (PRILOSEC) 8-28 by mouth ity o f 40 mg 00:00: daily. [facility] Medical Branch fluticasone Yes 50{spra Use 50 U nivers 50 8-28 y} Sprays in ity of mcg/actuati 00:00: each [place] on nasal 00 nostril Medical spray daily. 2 Branch puffs once daily omeprazole Yes 40mg Take 40 mg U nivers (PRILOSEC) 8-28 by mouth ity o f 40 mg 00:00: daily. [facility] Branch fluticasone Yes 50{spra Use 50 U nivers 50 8-28 y} Sprays in ity of mcg/actuati 00:00: each [place] on nasal 00 nostril Medical spray daily. 2 Branch puffs once daily omeprazole Yes 40mg Take 40 mg U nivers (PRILOSEC) 8-28 by mouth ity o f 40 mg 00:00: daily. [facility] Medical Branch fluticasone Yes 50{spra Use 50 U nivers 50 8-28 y} Sprays in ity of mcg/actuati 00:00: each [place] on nasal 00 nostril Medical spray daily. 2 Branch puffs once daily omeprazole Yes 40mg Take 40 mg U nivers (PRILOSEC) 8-28 by mouth ity o f 40 mg 00:00: daily. [facility] fluticasone Yes 50{spra Use 50 U nivers 50 8-28 y} Sprays in ity of mcg/actuati 00:00: each [place] on nasal 00 nostril Medical spray daily. 2 Branch puffs once daily omeprazole Yes 40mg Take 40 mg U nivers (PRILOSEC) 8-28 by mouth ity o f 40 mg 00:00: daily. [facility] Branch fluticasone Yes 50{spra Use 50 U nivers 50 8-28 y} Sprays in ity of mcg/actuati 00:00: each [place] on nasal 00 nostril Medical spray daily. 2 Branch puffs once daily omeprazole Yes 40mg Take 40 mg U nivers (PRILOSEC) 8-28 by mouth ity o f 40 mg 00:00: daily. [facility] Branch fluticasone Yes 50{spra Use 50 U nivers 50 8-28 y} Sprays in ity of mcg/actuati 00:00: each [place] on nasal 00 nostril Medical spray daily. 2 Branch puffs once daily omeprazole Yes 40mg Take 40 mg U nivers (PRILOSEC) 8-28 by mouth ity o f 40 mg 00:00: daily. [facility] fluticasone Yes 50{spra Use 50 U nivers 50 8-28 y} Sprays in ity of mcg/actuati 00:00: each [place] on nasal 00 nostril Medical spray daily. 2 Branch puffs once daily omeprazole Yes 40mg Take 40 mg U nivers (PRILOSEC) 828 by mouth ity o f 40 mg 00:00: daily. [facility] fluticasone Yes 50{spra Use 50 U nivers 50 8-28 y} Sprays in ity of mcg/actuati 00:00: each [place] on nasal 00 nostril Medical spray daily. 2 Branch puffs once daily omeprazole Yes 40mg Take 40 mg U nivers (PRILOSEC) 8-28 by mouth ity o f 40 mg 00:00: daily. [facility] glipiZIDE 2020- No 5mg Take 5 mg Un julio (GLUCOTROL) 12-01 by mouth 2 i ty of 5 mg tablet 00:00: [place] daily. Branch glipiZIDE 2020- No 5mg Take 5 mg Un julio (GLUCOTROL) 12-01 by mouth 2 i ty of 5 mg tablet 00:00[place] daily. Branch ACCU-CHEK 2014-0 Yes daily. Univer s SANTOS PLUS 8-18 ity of TEST STRP 00:00: [facility] [place] [facility] Medical Branch ACCU-CHEK 2014-0 Yes daily. Univer [...] 00 Medical Branch ACCU-CHEK 2015-0 Yes daily. [facility] [place] [facility] SANTOS PLUS 8-18 ity of TEST STRP 00:00: [place] [facility] ACCU-CHEK 2014-0 Yes daily. [facility] [place] [facility] SANTOS PLUS 8-18 ity of TEST STRP 00:00: [place] [facility] ACCU-CHEK 2014-0 Yes daily. [facility] [place] [facility] SANTOS PLUS 8-18 ity of TEST STRP 00:00: [place] [facility] ACCU-CHEK 2014-0 Yes daily. [facility] [place] [facility] SANTOS PLUS 8-18 ity of TEST STRP [...] oria 40 MG TABS 1-14 l 11:19: Mobile 00 AMLODIPINE 0 No 1 po qd [place] bennie BESYLATE 10 1-14 l MG TABS 11:19: SIMVASTATIN 2013-0 No 1 po qd Mem oria 40 MG TABS 1-14 l 11:19: AMLODIPINE 2013-0 No 1 po qd [place] bennie BESYLATE 10 1-14 l MG TABS 11:19: SIMVASTATIN 2013-0 No 1 po qd Mem oria 40 MG TABS 1-14 l 11:19: AMLODIPINE 2013-0 No 1 po qd [place] bennie BESYLATE 10 1-14 l MG TABS 11:19: SIMVASTATIN 2013-0 No 1 po qd Mem oria 40 MG TABS 1-14 l 11:19: AMLODIPINE 2013-0 No 1 po qd [place] bennie BESYLATE 10 1-14 l MG TABS 11:19: SIMVASTATIN 2013-0 No 1 po qd Mem oria 40 MG TABS 1-14 l 11:19: AMLODIPINE 2013-0 No 1 po qd [place] bennie BESYLATE 10 1-14 l MG TABS 11:19: SIMVASTATIN 2013-0 No 1 po qd Mem oria 40 MG TABS 1-14 l 11:19: AMLODIPINE 2013-0 No 1 po qd [place] bennie BESYLATE 10 1-14 l MG TABS 11:19: SIMVASTATIN 2013-0 No 1 po qd Mem oria 40 MG TABS 1-14 l 11:19: AMLODIPINE 2013-0 No 1 po qd [place] bennie BESYLATE 10 1-14 l MG TABS 11:19: SIMVASTATIN 2013-0 No 1 po qd Mem oria 40 MG TABS 1-14 l 11:19: AMLODIPINE 2013-0 No 1 po qd [place] bennie BESYLATE 10 1-14 l MG TABS 11:19: SIMVASTATIN 2013-0 No 1 po qd Mem oria 40 MG TABS 1-14 l 11:19: AMLODIPINE 2013-0 No 1 po qd [place] bennie BESYLATE [...] MG TABS 08:02: Bull 43 VITAMIN D Yes per [...] HCL 50 MG 4-07 l TABS 00:00: Mobile TIZANIDINE No 1 tab QHS Me moria HCL 4 MG 4-07 PRN l TABS 00:00: Bull HYDROXYCHLO No 1 tab qd Me moria [...] MG 4-07 PRN l TABS 00:00: TRAMADOL 2010- No 1 po qd Memori [...] 2009-0 No 1 tab once Me moria [id number] UNIT 3-09 a week for l CAPS 00:00: two weeks VITAMIN D 2009-0 No 1 tab once Me moria [id number] UNIT 3- a week for l CAPS 00:00: two weeks VITAMIN D 2009-0 No 1 tab once Me moria 24027 UNIT 3- a week for l CAPS 00:00: two weeks VITAMIN D 2009-0 No 1 tab once Me moria 31354 UNIT 3- a week for l CAPS 00:00: two weeks VITAMIN D 2009-0 No 1 tab once Me moria 69568 UNIT 3- a week for l CAPS 00:00: two weeks VITAMIN D 2009-0 No 1 tab once Me moria 41058 UNIT 3- a week for l CAPS 00:00: two weeks VITAMIN D 2009-0 No 1 tab once Me moria 92543 UNIT 3- a week for l CAPS 00:00: two weeks VITAMIN D 2009-0 No 1 tab once Me moria 15695 UNIT 3- a week for l CAPS 00:00: two weeks VITAMIN D 2009-0 No 1 tab once Me moria 83372 UNIT 3- a week for l CAPS 00:00: two weeks VITAMIN D 2009-0 No 1 tab once Me moria 78772 UNIT 3- a week for l CAPS 00:00: two weeks VITAMIN D 2009-0 No 1 tab once Me moria 06830 UNIT 3- a week for l CAPS 00:00: two weeks VITAMIN D 2009-0 No 1 tab once Me moria 85246 UNIT 3-09 a week for l CAPS 00:00: two weeks VITAMIN D 2009-0 No 1 tab once Me moria 69871 UNIT 3-09 a week for l CAPS 00:00: two weeks VITAMIN D 2009-0 No 1 tab once Me moria 92899 UNIT 3-09 a week for l CAPS 00:00: two weeks VITAMIN D 2010-0 No 1 tab once Me moria 47524 UNIT 3 a week for l CAPS 00:00: two weeks VITAMIN D No 1 tab once Me moria 45651 UNIT 3 a week for l CAPS 00:00: two weeks Mobile 00 VITAMIN D No 1 tab once Me moria 92310 UNIT 3 a week for l CAPS 00:00: two weeks Bull 00 VITAMIN D No 1 tab once Me moria 95483 UNIT 3 a week for l CAPS 00:00: two weeks Immunizations Ordered Immunization Filled Immunization Date Status Commen ts Source Name Name polio vaccine #4 2011-08-29 Completed [facility] 16:08:45 Bull polio vaccine #4 2011-08-29 Completed [facility] 16:08:45 Mobile polio vaccine #4 2011-08-29 Completed [facility] 16:08:45 Bull polio vaccine #4 2011-08-29 Completed [facility] 16:08:45 Mobile polio vaccine #4 2011-08-29 Completed [facility] 16:08:45 Bull polio vaccine #4 2011-08-29 Completed [facility] 16:08:45 Mobile polio vaccine #4 2011-08-29 Completed [facility] 16:08:45 Mobile polio vaccine #4 2011-08-29 Completed [facility] 16:08:45 Mobile polio vaccine #4 2011-08-29 Completed [facility] 16:08:45 Mobile polio vaccine #4 2011-02-14 Completed [facility] 20:47:19 Bull polio vaccine #4 2011-02-14 Completed [facility] 20:47:19 Bull polio vaccine #4 2011-02-14 Completed [facility] 20:47:19 Mobile polio vaccine #4 2011-02-14 Completed [facility] 20:47:19 Bull polio vaccine #4 2011-02-14 Completed [facility] 20:47:19 Mobile polio vaccine #4 2011-02-14 Completed [facility] 20:47:19 Bull polio vaccine #4 2011-02-14 Completed [facility] 20:47:19 Bull polio vaccine #4 2011-02-14 Completed [facility] 20:47:19 Mobile polio vaccine #4 2011-02-14 Completed [facility] 20:47:19 Mobile Vital Signs Vital Name Observation Time Observation Value Comments Source WEIGHT 2021-12-02 06:45:00 107.5 kg HEIGHT 2021-12-02 06:45:00 180.3 cm WEIGHT 2021-11-18 10:14:00 102.059 kg HEIGHT 2021-11-18 10:14:00 180.3 cm WEIGHT 2021-12-02 06:45:00 107.5 kg HEIGHT 2021-12-02 06:45:00 180.3 cm WEIGHT 2021-11-18 10:14:00 102.059 kg HEIGHT 2021-11-18 10:14:00 180.3 cm Systolic blood 2021-01-26 20:01:00 158 mm[Hg] Univer sity of pressure [place] [facility] Diastolic blood 2021-01-26 20:01:00 74 mm[Hg] Unive rsity of [facility] Heart rate 2021-01-26 20:00:00 93 /min Universi ty [facility] Body temperature 2021-01-26 20:00:00 36.83 Annel Univ ersity of [facility] [place] [facility] Respiratory rate 2021-01-26 20:00:00 20 /min Univ ersity of [facility] [place] [facility] Body height 2021-01-26 20:00:00 175.3 cm [facility] ty [facility] [place] [facility] [place] Body weight 2021-01-26 20:00:00 101.833 kg Universi ty [facility] BMI 2021-01-26 20:00:00 33.15 kg/m2 Universi ty [facility] Oxygen saturation in 2021-01-26 20:00:00 96 /min University of Arterial blood by [facility] Pulse oximetry Branch Systolic blood 2020-12-11 07:49:02 161 mm[Hg] Univer sity of [facility] Diastolic blood 2020-12-11 07:49:02 70 mm[Hg] Unive rsity of pressure [facility] Heart rate 2020-12-11 07:49:02 86 /min Universi ty of [facility] [place] [facility] Body temperature 2020-12-11 07:49:02 38.17 Annel Univ ersity of [facility] Respiratory rate 2020-12-11 07:49:02 19 /min Univ ersity of [facility] [place] [facility] Oxygen saturation in 2020-12-11 07:49:02 96 /min University of Arterial blood by [place] [facility] Pulse oximetry Branch Body height 2020-12-11 06:05:00 176.5 cm [facility] [place] [facility] [place] Body weight 2020-12-11 06:05:00 102.967 kg [facility] [place] [facility] [place] BMI 2020-12-11 06:05:00 33.04 kg/m2 Universi ty of [facility] [place] [facility] Systolic blood 2020-10-26 22:04:00 178 mm[Hg] Univer sity of pressure [facility] [place] [facility] Diastolic blood 2020-10-26 22:04:00 90 mm[Hg] Unive rsity of pressure [facility] [place] [facility] Heart rate 2020-10-26 21:41:00 78 /min Universi ty of [facility] [place] [facility] Respiratory rate 2020-10-26 21:33:00 21 /min Univ ersity of [facility] [place] [facility] Body height 2020-10-26 21:33:00 175.3 cm Universi ty of [facility] [place] [facility] Body weight 2020-10-26 21:33:00 103.602 kg Universi ty of [facility] [place] [facility] BMI 2020-10-26 21:33:00 33.73 kg/m2 [facility] [place] [facility] [place] Oxygen saturation in 2020-10-26 21:33:00 97 /min University of Arterial blood by [facility] Pulse oximetry Branch Systolic blood 2020-10-09 15:12:00 125 mm[Hg] Univer sity of pressure [facility] [place] [facility] Diastolic blood 2020-10-09 15:12:00 73 mm[Hg] Unive rsity of pressure [facility] [place] [facility] Heart rate 2020-10-09 15:12:00 65 /min [facility] [place] [facility] [place] Body height 2020-10-09 15:12:00 175.3 cm [facility] [place] [facility] [place] Body weight 2020-10-09 15:12:00 102.967 kg Universi ty of [facility] BMI 2020-10-09 15:12:00 33.52 kg/m2 Universi ty of [facility] Systolic blood 2021-12-02 09:30:00 140 mm[Hg] [facility] Diastolic blood 2021-12-02 09:30:00 77 mm[Hg] [facility] Heart rate 2021-12-02 09:30:00 60 /min [facility] Respiratory rate 2021-12-02 09:30:00 15 /min [facility] Oxygen saturation in 2021-12-02 09:30:00 97 /min [facility] Arterial blood by Medical Ce nter Pulse oximetry Body temperature 2021-12-02 09:15:00 36.22 Annel [facility] Body height 2021-12-02 06:45:00 180.3 cm [facility] Body weight 2021-12-02 06:45:00 107.5 kg [facility] BMI 2021-12-02 06:45:00 33.05 kg/m2 [facility] Height 2013-04-19 16:42:10 [facility] Systolic (mm Hg) 2013-04-19 16:42:10 [facility] rial [facility] Diastolic (mm Hg) 2013-04-19 16:42:10 Mem orial Mobile Heart Rate 2013-04-19 16:42:10 [facility] Systolic (mm Hg) 2011-01-16 16:53:41 Devonte rial Mobile Diastolic (mm Hg) 2011-01-16 16:53:41 Mem orial Mobile Heart Rate 2011-01-16 16:53:41 [facility] Systolic (mm Hg) 2010-07-11 13:20:54 Devonte rial [facility] Diastolic (mm Hg) 2010-07-11 13:20:54 Mem orial Mobile Heart Rate 2010-07-11 13:20:54 [facility] Diastolic (mm Hg) 2009-11-28 13:10:48 Mem orial Mobile Heart Rate 2009-11-28 13:10:48 [facility] Weight 2009-11-28 13:10:48 [facility] Systolic (mm Hg) 2009-11-28 13:10:48 Devonte rial [facility] Diastolic (mm Hg) 2009-06-07 16:58:43 Mem orial Mobile Heart Rate 2009-06-07 16:58:43 [facility] Height 2009-06-07 16:58:43 [facility] Weight 2009-06-07 16:58:43 [facility] Systolic (mm Hg) 2009-06-07 16:58:43 Devonte rial Bull Procedures Procedure Date / Time Performing Clinician Source Performed POCT-GLUCOSE METER 2021-12-02 08:47:00 Nato Montes [facility] RELEASE, CARPAL TUNNEL 2021-12-02 07:22:00 Nato Montes [facility] POCT-GLUCOSE METER 2021-12-02 06:57:00 Nato Montes [facility] REFERRAL- 2021-02-25 06:01:00 Doctor Unassigned, No [facility] [place] REQUEST/RESPONSE Name [facility] TROPONIN I 2020-12-11 06:37:00 Devi Fuentes [facility] COMP. METABOLIC PANEL 2020-12-11 06:37:00 [id number] CBC WITH DIFF 2020-12-11 06:37:00 Devi Fuentes [facility] COVID-19 (ID NOW RAPID 2020-12-11 06:35:00 Devi Fuentes [facility] TESTING) [facility] POCT HEMOGLOBIN A1C TEST 2020-10-26 21:52:00 Tian Lu [facility] CONSENT/REFUSAL FOR 2020-10-09 14:49:17 Doctor [facility]assigned, [facility] Name [facility] Branch REFERRAL- 2020-09-25 05:01:00 Doctor Unassigned, No [facility] [place] REQUEST/RESPONSE Name [facility] genitourinary review of 2009-06-07 16:58:43 [place] [facility] E&M Plan of Care Planned Activity Planned Date Details Comments Source Future Scheduled 2022-12-05 Influenza Vaccine (#1) [facility] 00:[facility]00 [code = Influenza Medical Ce nter Vaccine (#1)] Future Scheduled 2022-12-[address] [facility] Test 00:00:00 (Season Ended) [code = [facility] Influenza Vaccine (Season Ended)] Future Scheduled 2022-12-05 Influenza Vaccine (#1) [facility] 00:00:00 [code = Influenza Medical Ce nter Vaccine (#1)] Future Scheduled 2022-12-05 Influenza Vaccine (#1) [facility] 00:00:00 [code = Influenza Medical Ce nter Vaccine (#1)] Future Scheduled 2022-12-05 Influenza Vaccine (#1) C [...] breast Medical C enter (procedure) [code = 023932062] Future Scheduled 1952 CT Colonography (combo) [facility] Test 00:00:00 [code = CT Colonography [facility] (combo)] Future Scheduled 1952 Screening for malignant [facility] Test 00:00:00 neoplasm of colon Medical Ce nter (procedure) [code = 838255920] Future Scheduled 1952 Screening for malignant [facility] Test 00:00:00 neoplasm of colon Medical Ce nter (procedure) [code = 889184814] Future Scheduled 1952 DXA SCAN [code = DXA [facility] Test 00:00:00 SCAN] [facility] Future Scheduled 1952 Screening for malignant [facility] Test 00:00:00 neoplasm of colon Medical Ce nter (procedure) [code = 305376439] Future Scheduled 1952 Screening for malignant [facility] Test 00:00:00 neoplasm of colon Medical Ce nter (procedure) [code = 162079452] Future Scheduled 1952 Sigmoidoscopy [code = [facility]00 S[facility]oscopy] [facility] Future Scheduled 1952 Screening for malignant [facility] Test 00:00:00 neoplasm of breast Medical C enter (procedure) [code = 359578590] Future Scheduled 1952 CT Colonography (combo) [facility] Test 00:00:00 [code = CT Colonography [facility] (combo)] Future Scheduled 1952 Screening for malignant [facility] Test 00:00:00 neoplasm of colon Medical Ce nter (procedure) [code = 324784114] Future Scheduled 1952 Screening for malignant [facility] Test 00:00:00 neoplasm of colon Medical Ce nter (procedure) [code = 121074256] Future Scheduled 1952 DXA SCAN [code = DXA [facility] Test 00:00:00 SCAN] [facility] Future Scheduled 1952 Screening for malignant [facility] Test 00:00:00 neoplasm of colon Medical Ce nter (procedure) [code = 995054277] Future Scheduled 1952 Screening for malignant [facility] Test 00:00:00 neoplasm of colon Medical Ce nter (procedure) [code = 137100068] Future Scheduled 1952 Sigmoidoscopy [code = [facility] 00:[facility]:00 S[facility]oscopy] [facility] r Future Scheduled 1952 Screening for malignant [facility] Test 00:00:00 neoplasm of breast Medical C enter (procedure) [code = 562397616] Future Scheduled 1952 CT Colonography (combo) [facility] Test 00:00:00 [code = CT Colonography [facility] (combo)] Future Scheduled 1952 Screening for malignant [facility] Test 00:00:00 neoplasm of colon Medical Ce nter (procedure) [code = 390718571] Future Scheduled 1952 Screening for malignant [facility] Test 00:00:00 neoplasm of colon Medical Ce nter (procedure) [code = 659061199] Future Scheduled 1952 DXA SCAN [code = DXA [facility] Test 00:00:00 SCAN] [facility] Future Scheduled 1952 Screening for malignant [facility] Test 00:00:00 neoplasm of colon Medical Ce nter (procedure) [code = 516763286] Future Scheduled 1952 Screening for malignant [facility] Test 00:00:00 neoplasm of colon Medical Ce nter (procedure) [code = 212844168] Future Scheduled 1952 Sigmoidoscopy [code = [facility] 00:00:00 S[facility]oidoscopy] [facility] Future Scheduled 1952 Screening for malignant [facility] Test 00:00:00 neoplasm of breast Medical C enter (procedure) [code = 391434248] Future Scheduled 1952 CT Colonography (combo) [facility] Test 00:00:00 [code = CT Colonography [facility] (combo)] Future Scheduled 1952 Screening for malignant [facility] Test 00:00:00 neoplasm of colon Medical Ce nter (procedure) [code = 873940744] Future Scheduled 1952 Screening for malignant [facility] Test 00:00:00 neoplasm of colon Medical Ce nter (procedure) [code = 172569278] Future Scheduled 1952 DXA SCAN [code = DXA [facility] Test 00:00:00 SCAN] [facility] Future Scheduled 1952 Screening for malignant [facility] Test 00:00:00 neoplasm of colon Medical Ce nter (procedure) [code = 690803722] Future Scheduled 1952 Screening for malignant [facility] Test 00:00:00 neoplasm of colon Medical Ce nter (procedure) [code = 514465590] Future Scheduled 1952 Sigmoidoscopy [code = [facility] 00:[facility] S[facility]oscopy] [facility] Future Scheduled 1952 Screening for malignant [facility] Test 00:00:00 neoplasm of breast Medical C enter (procedure) [code = 711686457] Future Scheduled 1952 CT Colonography (combo) [facility] Test 00:00:00 [code = CT Colonography [facility] (combo)] Future Scheduled 1952 Screening for malignant [facility] Test 00:00:00 neoplasm of colon Medical Ce nter (procedure) [code = 944816145] Future Scheduled 1952 Screening for malignant [facility] Test 00:00:00 neoplasm of colon Medical Ce nter (procedure) [code = 570392649] Future Scheduled 1952 DXA SCAN [code = DXA [facility] Test 00:00:00 SCAN] [facility] Future Scheduled 1952 Screening for malignant [facility] Test 00:00:00 neoplasm of colon Medical Ce nter (procedure) [code = 821270572] Future Scheduled 1952 Screening for malignant [facility] Test 00:00:00 neoplasm of colon Medical Ce nter (procedure) [code = 813788448] Future Scheduled 1952 Sigmoidoscopy [facility]code = [facility] 00:[facility]] [facility] Future Scheduled 1952 Screening for malignant [facility] Test 00:00:00 neoplasm of breast Medical C enter (procedure) [code = 725306538] Future Scheduled 1952 CT Colonography (combo) [facility] Test 00:00:00 [code = CT Colonography [facility] (combo)] Future Scheduled 1952 Screening for malignant [facility] Test 00:00:00 neoplasm of colon Medical Ce nter (procedure) [code = 003144333] Future Scheduled 1952 Screening for malignant [facility] Test 00:00:00 neoplasm of colon Medical Ce nter (procedure) [code = 741853475] Future Scheduled 1952 DXA SCAN [code = DXA [facility] Test 00:00:00 SCAN] [facility] Future Scheduled 1952 Screening for malignant [facility] Test 00:00:00 neoplasm of colon Medical Ce nter (procedure) [code = 875522615] Future Scheduled 1952 Screening for malignant [facility] Test 00:00:00 neoplasm of colon Medical Ce nter (procedure) [code = 267883483] Future Scheduled 1952 Sigmoidoscopy [code = [facility] 00:[facility]] [facility] Future Scheduled 1952 Screening for malignant [facility] Test 00:00:00 neoplasm of breast Medical C enter (procedure) [code = 285782629] Future Scheduled 1952 CT Colonography (combo) [facility] Test 00:00:00 [code = CT Colonography [facility] (combo)] Future Scheduled 1952 Screening for malignant [facility] Test 00:00:00 neoplasm of colon Medical Ce nter (procedure) [code = 663695829] Future Scheduled 1952 Screening for malignant [facility] Test 00:00:00 neoplasm of colon Medical Ce nter (procedure) [code = 469148804] Future Scheduled 1952 DXA SCAN [code = DXA [facility] Test 00:00:00 SCAN] [facility] Future Scheduled 1952 Screening for malignant [facility] Test 00:00:00 neoplasm of colon Medical Ce nter (procedure) [code = 130868886] Future Scheduled 1952 Screening for malignant [facility] Test 00:00:00 neoplasm of colon Medical Ce nter (procedure) [code = 102399778] Future Scheduled 1952 Sigmoidoscopy [code [facility] 00:[facility]] [facility] Future Scheduled 1952 Screening for malignant [facility] Test 00:00:00 neoplasm of breast Medical C enter (procedure) [code = 985775545] Future Scheduled 1952 CT Colonography (combo) [facility] Test 00:00:00 [code = CT Colonography [facility] (combo)] Future Scheduled 1952 Screening for malignant [facility] Test 00:00:00 neoplasm of colon Medical Ce nter (procedure) [code = 982130250] Future Scheduled 1952 Screening for malignant [facility] Test 00:00:00 neoplasm of colon Medical Ce nter (procedure) [code = 948737314] Future Scheduled 1952 DXA SCAN [code = DXA [facility] Test 00:00:00 SCAN] [facility] Future Scheduled 1952 Screening for malignant [facility] Test 00:00:00 neoplasm of colon Medical Ce nter (procedure) [code = 889352195] Future Scheduled 1952 Screening for malignant [facility] Test 00:00:00 neoplasm of colon Medical Ce nter (procedure) [code = 782953457] Future Scheduled 1952 Sigmoidoscopy [facility]code [facility] End Encounter Admission Attending Care Care Encounter Source Date/Time Date/Time Type Type Clinicians Facility Department ID 2021-02-04 Emergency [facility] [id number] [facility] 2021-12-02 Hospital Nato Gustafson [facility] [id number] 06:15:00 09:47:00 Encounter [facility] 2021-12-02 2021-12-02 Outpatient [facility] [id number] [facility] 06:15:00 09:47:00 2021-12-02 2021-12-02 Surgery Nato Montes [facility] [id number] 08:30:00 09:30:00 [facility] 2021-12-02 2021-12-02 Anesthesia Sergei Pineda [facility] [id number] 08:03:00 08:40:00 Event [facility] 2021-12-02 2021-12-02 Travel [facility] [id number] [facility] 00:[facility] 00:00:00 [facility] 2021-11-27 2021-11-27 Laboratory Only, Ang Db Test [facility] 1.2.8 40.114 [id number] Univers 10:30:00 10:45:00 Only Jonathan Preston [id number] [place] [id number] Fausto as MIGUE?BLEA [id number] [address] MEDICAL OFFICE BUILDING 2021-11-27 2021-11-27 Outpatient George PRESTON [facility] [id number] Univers 10:30:00 10:30:00 JONATHAN rosas o f [facility] 2021-11-18 2021-11-18 Outpatient EL [facility] [id number] [facility] 10:51:33 23:59:00 2021-11-18 2021-11-18 [facility] [id number] 09:30:00 23:59:[address] [facility] 2021-11-18 2021-11-18 Travel [facility] [id number] [facility] 00:[facility]00 00:00:00 [employer] 2021-11-01 2021-11-01 Outpatient RUFINO[facility]RAD [facility] [id number] [place] 00:00:00 00:00:00 _KELLEY 0729 da [facility] Outre [facility] Program 2021-07-05 2021-07-05 Outpatient George LU [facility] [id number] Univers 14:00:00 14:00:00 TIAN [facility] 2021-05-10 2021-05-10 Outpatient George LU [facility] [facility] [id number] Univers 10:30[facility]00 10:30:00 [facility]-20 2021-04-20 [facility] [place] 1.2.255.899 [id number] Univers 00:00:00 00:00:00 Tian RAY 350.1.13.10 i ty of [place] [phone] Dc dical [facility] [address] [place] BUILDING 2021-04-18 2021-04-18 Letter MAULIK Driscoll 1.2.840.114 [id number] Univers 00:00:00 00:00:00 (Out) Josh SAHU 350.1.13.10 ity of HOSPITAL 4.2.7.2.686 Fa[place] as [phone] [facility] [address] [place] 2021-02-25 2021-02-25 Orders Doctor MAULIK 1.2.840.114 [id number] Univers 00:00:00 00:00:00 Only UnassignedADELINA 350.1.13.10 ity of [place] [facility] 4.2.7.2.686 Fausto as [phone] [facility] [address] [place] 2021-01-26 2021-01-26 Outpatient George AMEZCUA [facility] [id number] Univers 15:20:00 15:20:00 SELENE ity of [facility] 2021-01-26 2021-01-26 Urgent Navin Valera [facility] 1.2.840.114 [id number] Univers 14:55:35 15:15:35 Care Evangelista [facility] 350.1.13.10 ity of [place] 4.2.7.2.686 Fausto as Migue?Blea [phone] [address] Medical Office [facility] 2021-01-03 2021-01-03 Letter MAULIK Hamilton 1.2.840.114 [id number] Univers 00:00:00 00:00:00 (Out) Pamela SAHU 350.1.13.10 it y of HOSPITAL 4.2.7.2.686 [place] as [phone] [facility] [address] [place] 2021-01-02 2021-01-02 Laboratory Only, Ang Db Test [facility] 1.2.8 40.114 [id number] Univers 09:03:03 09:18:03 Only Kayy [facility] 350.1.13.10 ity of [place] 4.2.7.2.686 [place] as Migue?Blea [phone] [address] Medical Office Building 2021-01-02 2021-01-02 Outpatient R [facility] [id number] Univers 09:15:00 09:15:00 ity [facility] 2020-12-13 2020-12-13 Outpatient R HUNG, [facility] [id number] Univers 16:00:00 16:00:00 BOBBY ity [facility] 2020-12-11 2020-12-11 Emergency [facility] [place] 1.2.840.114 [id number] Univers 01:00:00 03:03:00 Devi Ray 350.1.13.10 ity of [place] [phone] [place] [address] [place] 2020-12-11 2020-12-11 Letter MAULIK Hamilton 1.2.840.114 [id number] Univers 00:00:00 00:00:00 (Out) Pamela BURDENY 350.1.13.10 it y of [facility] 4.2.7.2.686 [place] as [phone] [facility] [address] [place] 2020-12-08 2020-12-08 Outpatient R [facility] [id number] Univers 13:25:00 13:25:00 ity [facility] 2020-12-08 2020-12-08 Laboratory Only, Ang Db Test [facility] 1.2.8 40.114 [id number] Univers 12:59:14 13:09:14 Only Corinne, [facility] 350.1.13.10 ity of [place] 4.2.7.2.686 [place]usto as Migue?Blea [phone] Dc dical [address] Medical Office [facility] 2020-10-26 2020-10-29 [facility] [id number] Univers 16:00:00 13:53:39 TIAN [facility] 2020-10-26 2020-10-29 Office [facility] [place] 1.2.418.582 [id number] Univers 15:49:45 13:53:39 Visit Tian Ray 350.1.13.10 i ty of [place] [phone] Dc dical nal 220 [facility] 2020-10-10 2020-10-10 Telephone Van, [facility] 1.2.840.114 [id number] Univers 00:00:00 00:00:00 Chris Ray 350.1.13.10 ity of [place] [phone] Dc dical nal 092 [facility] 2020-10-09 2020-10-09 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 2, Adc Lab [facility] 1.2.840.114 [id number] Univers 11:02:42 11:17:42 Visit Chris Araujo 350.1.13 .10 ity of [place] [phone] Dc dical nal 353 [facility] 2020-10-09 2020-10-09 Outpatient R CHRIS ARAUJO [facility] [id number] Univers 10:00:00 11:01:13 CHRIS ARAUJO ity [facility] 2020-10-09 2020-10-09 Office [facility] [place] 1.2.840.114 [id number] Univers 09:50:22 11:01:13 Visit Chris Ray 350.1.13.10 ity of [place] [phone] Dc dical nal 092 [facility] 2020-10-09 2020-10-09 Orders Doctor WILLINGHAM 1.2.840.114 [id number] Univers 00:00:00 00:00:00 Only Unassigned, ADELINA 350.1.13.10 ity of [place] [facility]PITAL 4.2.7.2.686 Faust[place] as [phone] [address] 2020-09-25 2020-09-25 Orders Doctor MAULIK 1.2.840.114 [id number] Univers 00:00:00 00:00:00 Only Unassigned, ADELINA 350.1.13.10 ity of [place] [facility] 4.2.7.2.686 [place] as [phone] [address] 2019-12-06 2019-12-06 Outpatient cMcDonald [facility] [id number] -[id number] [place] 11:43:00 11:43:00 0901 [facility] 2013-04-19 2013-04-19 Lab Report nullFlavo Flynn 1705 [id number] [facility] 00:00:00 00:00:00 r Bone & 037451 [facility] 2013-04-19 2013-04-19 Lab Report nullFlavo Flynn 1705 [id number] [facility] 00:00:00 00:00:00 r Bone & 055124 [facility] 2012-09-01 2012-09-01 Lab Report nullFlavo Flynn 1685 [id number] [facility] 00:00:00 00:00:00 r Bone & 002380 [facility] 2012-09-01 2012-09-01 Lab Report nullFlavo Pawan 1685 [id number] [facility] 00:00:00 00:00:00 r Bone & 166499 l [facility] 2012-03-02 2012-03-02 Lab Report nullFlavo Pawan 1669 [id number] [facility] 00:00:00 00:00:00 r Bone & 432350 [facility] 2012-03-02 2012-03-02 Lab Report nullFlavo Pawan 1669 [id number] [facility] 00:00:00 00:00:00 r Bone & 136137 [facility] 2011-10-30 2011-10-30 Office nullFlavo Pawan [id number] [facility] 00:00:00 00:00:00 Visit r Office 767968 [facility] 2011-10-30 2011-10-30 Office nullFlavo Pawan [id number] [facility] 00:00:00 00:00:00 Visit r Office 184000 [facility] 2011-10-29 2011-10-29 Lab Report nullFlavo Pawan 1658 [id number] [facility] 00:00:00 00:00:00 r Bone & 098129 [facility] 2011-10-29 2011-10-29 Lab Report nullFlavo Pawan 1658 [id number] [facility] 00:00:00 00:00:00 r Bone & 096484 [facility] 2011-08-29 2011-08-29 Office nullFlavo Pawan [id number] [facility] 00:00:00 00:00:00 Visit r Office 428160 [facility] 2011-08-29 2011-08-29 Office nullFlavo Pawan [id number] [facility] 00:00:00 00:00:00 Visit r Office 964235 l [facility] 2011-07-01 2011-07-01 Lab Report nullFlavo PAWAN 1648 [id number] [facility] 00:00:00 00:00:00 r BONE AND 182159 l [facility] 2011-07-01 2011-07-01 Lab Report nullFlavo FLYNN 1648 [id number] [facility] 00:00:00 00:00:00 r BONE AND 728956 l [facility] 2011-06-20 2011-06-20 Office nullFlavo Oronoco 10807 [id number] [facility] 00:00:00 00:00:00 Visit r Office 364421 [facility] 2011-06-20 2011-06-20 Office nullFlavo Oronoco 80638 27420 [facility] 00:00:00 00:00:00 Visit r Office 659947 l [facility] 2011-06-20 2011-06-20 Lab Report nullFlavo PAWAN 1647 [id number] [facility] 00:00:00 00:00:00 r BONE AND 847392 l [facility] 2011-06-20 2011-06-20 Lab Report nullFlavo PAWAN 1647 [id number] [facility] 00:00:00 00:00:00 r BONE AND 606109 l [facility] Results Test Description Test Time Test Comments Results Result Comments Source POC-Glucose meter 2021-12-02 08:58:26 Test Item Value Reference Range Interpretation Comme nts POC-Glucose Meter (test code = 111 mg/dL 70-110 H : Notified RN/MD: TESTED AT [facility] 1538) [address] [place] [address]: Metal [employer] 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-Glucose [id number] 08:58:26 Test Item Value Reference Range Interpretation Comments POC-Glucose Meter (test 111 mg/dL 70-110 H : No tified RN/MD: code = 1538) TESTED AT [address] [address]: [employer] Assistant/Techni tamara ID = [id number] for PEE CARLTON YI Lab Interpretation (test Abnormal code = 68668-9) [facility]-Glucose sfmkw4743-73-53 08:58:26 Test Item Value Reference Range Interpretation Comments POC-Glucose Meter (test 111 mg/dL 70-110 H : No tified RN/MD: code = 1538) TESTED AT [address] [address]: [employer] Assistant/Techni tamara ID = [id number] for PEE CARLTON YI Lab Interpretation (test Abnormal code = 65373-8) [facility]-Glucose apcbb7004-20-42 08:58:26 Test Item Value Reference Range Interpretation Comments POC-Glucose Meter (test 111 mg/dL 70-110 H : No tified RN/MD: code = 1538) TESTED AT [address] [address]: [employer] Assistant/Techni tamara ID = [id number] for PEE CARLTON YI Lab Interpretation (test Abnormal code = 26702-7) [facility]-Glucose [id number] 08:58:26 Test Item Value Reference Range Interpretation Comments POC-Glucose Meter (test 111 mg/dL 70-110 H : No tified RN/MD: code = 1538) TESTED AT [address] [address]: [employer] Assistant/Techni tamara ID = [id number] for PEE CARLTON YI Lab Interpretation (test Abnormal code = 23974-3) [facility]-GLUCOSE [id number] 08:58:26 Test Item Value Reference Range Interpretation Comments POC-GLUCOSE METER 111 mg/dL 70-110 H : Notified RN/MD: TESTED (BEAKER) (test code AT [address] = 1538) [facility] [address]: Metal M[employer] Assistant/Techni tamara ID = [id number] for JOYCELYN HODGE POCT-GLUCOSE [id number] 07:08:34 Test Item Value Reference Range Interpretation Comments POC-GLUCOSE METER 111 mg/dL 70-110 H : TESTED A T [facility] 7200 (BEAKER) (test code LAST Guzman DG A, = 1538) [facility] 7703 0: Metal M[employer] Assistant/Techni tamara ID = [id number] for Roberto Jean TROPONIN [id number] 07:29:58 Test Item Value Reference Interpretation Comments Range TROPONIN I (test 0.029 ng/mL See_Comment [Automated code = 6971815820) message] The system which generated this result [...] biotin. Lab Interpretation Normal (test code = 96122-2) [facility] [id number] 07:29:58 Test Item Value Reference Interpretation Comments Range TROPONIN I (test 0.029 ng/mL See_Comment [Automated code = 7259818397) message] The system which generated this result [...] biotin. Lab Interpretation Normal (test code = 72789-9) [facility]. METABOLIC PANEL (92856)2020-12-11 07:18:58 Test Item Value Reference Range Interpretation Comments NA (test code = 137 mmol/L 135-145 3036866156) K (test code = 3.6 mmol/L 3.5-5.0 4801109231) CL (test code = 102 mmol/L 98-108 2285928261) CO2 TOTAL (test code = 25 mmol/L 23-31 0915014052) AGAP (test code = 2-16 2310141996) BUN (test code = 18 mg/dL 7-23 4858295523) GLUCOSE (test code = 115 mg/dL 70-110 H 7527947533) CREATININE (test code = 1.80 mg/dL 0.50-1.04 H 4623655954) TOTAL BILI (test code = 1.1 mg/dL 0.1-1.6 0742793112) CALCIUM (test code = 9.1 mg/dL 8.6-10.6 7436992800) T PROTEIN (test code = 8.1 g/dL 6.3-8.2 6570453725) ALBUMIN (test code = 4.4 g/dL 3.5-5.0 7159164881) ALK PHOS (test code = 52 U/L 34-122 1682066639) ALTv (test code = 30 U/L 5-35 1742-6) AST(SGOT) (test code = 57 U/L 13-40 H 2490784300) eGFR (test code = mL/min/1.73m2 4854124966) SKYLAR (test code = SKYLAR) Association of [...] tests). Lab Interpretation Abnormal (test code = 43676-2) [facility]. METABOLIC PANEL (58424)2020-12-11 07:18:58 Test Item Value Reference Range Interpretation Comments NA (test code = 137 mmol/L 135-145 1637545235) K (test code = 3.6 mmol/L 3.5-5.0 3855080856) CL (test code = 102 mmol/L 98-108 2006355401) CO2 TOTAL (test code = 25 mmol/L 23-31 2025668486) AGAP (test code = 2-16 5050655018) BUN (test code = 18 mg/dL 7-23 7315576357) GLUCOSE (test code = 115 mg/dL 70-110 H 7559946820) CREATININE (test code = 1.80 mg/dL 0.50-1.04 H 0665025948) TOTAL BILI (test code = 1.1 mg/dL 0.1-1.7 5607252408) CALCIUM (test code = 9.1 mg/dL 8.6-10.6 2783993531) T PROTEIN (test code = 8.1 g/dL 6.3-8.2 3653389665) ALBUMIN (test code = 4.4 g/dL 3.5-5.0 6155761677) ALK PHOS (test code = 52 U/L 34-122 9504131230) ALTv (test code = 30 U/L 5-35 2-6) AST(SGOT) (test code = 57 U/L 13-40 H 5501031413) eGFR (test code = mL/min/1.73m2 2057987509) SKYLAR (test code = SKYLAR) Association of [...] tests). Lab Interpretation Abnormal (test code = 63296-0) [facility] NOW RAPID TESTING)2020-12-11 06:56:56 Test Item Value Reference Range Interpretation Comments SARS-CoV-2 Rapid ID NOW Positive Not Detected A (test code = 08750-6) SKYLAR (test code = SKYLAR) ID NOW COVID-19 Assay is an isothermal nucleic acid amplification test intended for the qualitative detection of nucleic acid from SARS-CoV-2 viral RNA in nasopharyngeal (FURNITURE REMOVALIST) specimens. It is used under Emergency Use [...] indicated. Lab Interpretation Abnormal (test code = 56031-5) [facility] NOW RAPID TESTING)2020-12-11 06:56:56 Test Item Value Reference Range Interpretation Comments SARS-CoV-2 Rapid ID NOW Positive Not Detected A (test code = 33809-3) SKYLAR (test code = SKYLAR) ID NOW COVID-19 Assay is an isothermal nucleic acid amplification test intended for the qualitative detection of nucleic acid from SARS-CoV-2 viral RNA in nasopharyngeal (FURNITURE REMOVALIST) specimens. It is used under Emergency Use [...] indicated. Lab Interpretation Abnormal (test code = 73974-5) [facility] WITH [id number] 06:53:00 Test Item Value Reference Range Interpretation [...] (test code = 37.1 fL 39.0-49.9 L 94617-5) RDW-CV (test code = 13.0 % 12.0-15.5 788-0) PLT (test code = See_Comment L [Automated 777-3) message] The sy stem which generated this result transmitted reference range : 166 - 358 10*3/ ?L. The reference r marcos was not used to interpret this result as normal/abnormal . MPV (test code = 10.6 fL 9.5-12.9 47171-8) IPF % (test code = 2.4 % 1.3-7.7 Platelet count 5394824386) measured by fluorescence method. NRBC/100 WBC (test See_Comment [Automat ed code = 7339061961) message] The system which generated this result transmitted reference range : 0.0 - 10.0 /100 WBCs. The refer ence range was not u sed to interpret th is result as normal/abnormal . NRBC x10^3 (test code <0.01 See_Comment [Auto mated = 4970325972) message] The s ystem which generated this result transmitted reference range : 10*3/?L. The reference range was not used to interpret this result as normal/abnormal . GRAN MAT (NEUT) % 85.3 % (test code = 770-8) IMM GRAN % (test code 0.50 % = 6455819191) LYMPH % (test code = 8.8 % 736-9) MONO % (test code = 5.4 % 5905-5) EOS % (test code = 0.0 % 713-8) BASO % (test code = 0.0 % 706-2) GRAN MAT x10^3(ANC) 3.30 10*3/uL 1.88-7.09 (test code = 9725103753) IMM GRAN x10^3 (test <0.03 0.00-0.06 code = 4181549907) LYMPH x10^3 (test code 0.34 10*3/uL 1.32-3.29 L = 731-0) MONO x10^3 (test code 0.21 10*3/uL 0.33-0.92 L = 742-7) EOS x10^3 (test code = <0.03 0.03-0.39 L 711-2) BASO x10^3 (test code <0.03 0.01-0.07 = 704-7) Lab Interpretation Abnormal (test code = 99420-4) [facility] WITH [id number] 06:53:00 Test Item Value Reference Range Interpretation [...] (test code = 37.1 fL 39.0-49.9 L 18511-5) RDW-CV (test code = 13.0 % 12.0-15.5 788-0) PLT (test code = See_Comment L [Automated 777-3) message] The sy stem which generated this result transmitted reference range : 166 - 358 10*3/ ?L. The reference r marcos was not used to interpret this result as normal/abnormal . MPV (test code = 10.6 fL 9.5-12.9 79890-2) IPF % (test code = 2.4 % 1.3-7.7 Platelet count 3714539321) measured by fluorescence method. NRBC/100 WBC (test See_Comment [Automat ed code = 1693466662) message] The system which generated this result transmitted reference range : 0.0 - 10.0 /100 WBCs. The refer ence range was not u sed to interpret th is result as normal/abnormal . NRBC x10^3 (test code <0.01 See_Comment [Auto mated = 6808566299) message] The s ystem which generated this result transmitted reference range : 10*3/?L. The reference range was not used to interpret this result as normal/abnormal . GRAN MAT (NEUT) % 85.3 % (test code = 770-8) IMM GRAN % (test code 0.50 % = 6291196858) LYMPH % (test code = 8.8 % 736-9) MONO % (test code = 5.4 % 5905-5) EOS % (test code = 0.0 % 713-8) BASO % (test code = 0.0 % 706-2) GRAN MAT x10^3(ANC) 3.30 10*3/uL 1.88-7.09 (test code = 7322610669) IMM GRAN x10^3 (test <0.03 0.00-0.06 code = 4515732593) LYMPH x10^3 (test code 0.34 10*3/uL 1.32-3.29 L = 731-0) MONO x10^3 (test code 0.21 10*3/uL 0.33-0.92 L = 742-7) EOS x10^3 (test code = <0.03 0.03-0.39 L 711-2) BASO x10^3 (test code <0.03 0.01-0.07 = 704-7) Lab Interpretation Abnormal (test code = 09515-5) [facility] HEMOGLOBIN A1C [id number] 21:52:00 Test Item Value Reference Range Interpretation Comments POCT HBA1C (test code = 4548-4) 5.5 % 4-6 [facility] HEMOGLOBIN A1C [id number] 21:52:00 Test Item Value Reference Range Interpretation Comments POCT HBA1C (test code = 4548-4) 5.5 % 4-6 [facility]2013-05-30 14:30:00 Test Item Value Reference Range Interpretation Comments CRP (test code = <1.0 mg/L See_Comment [Automated message] The CRP) system which ge nerated this result tra nsmitted reference range : <=4.9. The reference r marcos was not used to int erpret this result as normal/abnormal . [facility]77[facility] 14:30:00 Test Item Value Reference Range Interpretation Comments CRP (test code = <1.0 mg/L See_Comment [Automated message] The CRP) system which ge nerated this result tra nsmitted reference range : <=4.9. The reference r marcos was not used to int erpret this result as normal/abnormal . [facility]za[facility]huh[facility]ix4294[facility]88-60 14:30:00 Test Item Value Reference Range Interpretation Comments CRP (test code = <1.0 mg/L See_Comment [Automated message] The CRP) system which ge nerated this result tra nsmitted reference range : <=4.9. The reference r marcos was not used to int erpret this result as normal/abnormal . [facility]hljofrWciokwzjg4242-68-93 14:30:00 Test Item Value Reference Range Interpretation Comments CRP (test code = <1.0 mg/L See_Comment [Automated message] The CRP) system which ge nerated this result tra nsmitted reference range : <=4.9. The reference r marcos was not used to int erpret this result as normal/abnormal . [facility] HospitalErwhriuQrckmrrfo7448-35-96 14:30:00 Test Item Value Reference Range Interpretation Comments CRP (test code = <1.0 mg/L See_Comment [Automated message] The CRP) system which ge nerated this result tra nsmitted reference range : <=4.9. The reference r marcos was not used to int erpret this result as normal/abnormal . [facility] HospitalNjymfoxNcpfrwamf5564-80-12 14:30:00 Test Item Value Reference Range Interpretation Comments CRP (test code = <1.0 mg/L See_Comment [Automated message] The CRP) system which ge nerated this result tra nsmitted reference range : <=4.9. The reference r marcos was not used to int erpret this result as normal/abnormal . [facility] HospitalLpxvwnuZhfryzcsx2926-32-59 14:30:00 Test Item Value Reference Range Interpretation Comments CRP (test code = <1.0 mg/L See_Comment [Automated message] The CRP) system which ge nerated this result tra nsmitted reference range : <=4.9. The reference r marcos was not used to int erpret this result as normal/abnormal . [facility] HospitalTxxwnpiZqwelibaf4769-61-12 14:30:00 Test Item Value Reference Range Interpretation Comments CRP (test code = <1.0 mg/L See_Comment [Automated message] The CRP) system which ge nerated this result tra nsmitted reference range : <=4.9. The reference r marcos was not used to int erpret this result as normal/abnormal . [facility] HospitalWzajvqtKbbtjzrwz6174-01-55 14:30:00 Test Item Value Reference Range Interpretation Comments CRP (test code = <1.0 mg/L See_Comment [Automated message] The CRP) system which ge nerated this result tra nsmitted reference range : <=4.9. The reference r marcos was not used to int erpret this result as normal/abnormal . [facility] CenterWrgiypoJnmegexprt2551-00-69 11:43:00 Test Item Value Reference Range Interpretation Comments ESR (test code = ESR) 24 See_Comment [Auto mated message] The system which ge nerated this result transmit nicholas reference range : <=40. The reference range was not used to interpr et this result as daniela l/abnormal. [facility] CenterIhlfmmcSsbdyalrwr8151-37-30 11:43:00 Test Item Value Reference Range Interpretation Comments ESR (test code = ESR) 24 See_Comment [Auto mated message] The system which ge nerated this result transmit nicholas reference range : <=40. The reference range was not used to interpr et this result as daniela l/abnormal. [facility] CenterKypemqxPtjcuipiii2427-81-04 11:43:00 Test Item Value Reference Range Interpretation Comments ESR (test code = ESR) 24 See_Comment [Auto mated message] The system which ge nerated this result transmit nicholas reference range : <=40. The reference range was not used to interpr et this result as daniela l/abnormal. [facility] CenterGfcdmzyYbodzddkbd3140-14-25 11:43:00 Test Item Value Reference Range Interpretation Comments ESR (test code = ESR) 24 See_Comment [Auto mated message] The system which ge nerated this result transmit nicholas reference range : <=40. The reference range was not used to interpr et this result as daniela l/abnormal. [facility] CenterTbzkvjqTezkbdcndc1344-45-90 11:43:00 Test Item Value Reference Range Interpretation Comments ESR (test code = ESR) 24 See_Comment [Auto mated message] The system which ge nerated this result transmit nicholas reference range : <=40. The reference range was not used to interpr et this result as daniela l/abnormal. [facility] CenterFfvbgmhJzqwwliyyv6344-86-80 11:43:00 Test Item Value Reference Range Interpretation Comments ESR (test code = ESR) 24 See_Comment [Auto mated message] The system which ge nerated this result transmit nicholas reference range : <=40. The reference range was not used to interpr et this result as daniela l/abnormal. [facility] CenterUxdjtevWowyhsjnuq0480-10-63 11:43:00 Test Item Value Reference Range Interpretation Comments ESR (test code = ESR) 24 See_Comment [Auto mated message] The system which ge nerated this result transmit nicholas reference range : <=40. The reference range was not used to interpr et this result as daniela l/abnormal. [facility] CenterCfrouyuHymmvbpjqk9332-41-23 11:43:00 Test Item Value Reference Range Interpretation Comments ESR (test code = ESR) 24 See_Comment [Auto mated message] The system which ge nerated this result transmit nicholas reference range : <=40. The reference range was not used to interpr et this result as daniela l/abnormal. [facility] CenterXcxjtnrOmizdevjoa7534-78-90 11:43:00 Test Item Value Reference Range Interpretation Comments ESR (test code = ESR) 24 See_Comment [Auto mated message] The system which ge nerated this result transmit nicholas reference range : <=40. The reference range was not used to interpr et this result as daniela l/abnormal. [facility] CenterCndrlnlPcdcdqzmxb9884-53-02 10:33:00 Test Item Value Reference Range Interpretation Comments HGB (test code = HGB) 12.4 11.1-15.9 [facility] CenterVakvsghOuurdbxnee5502-98-93 10:33:00 Test Item Value Reference Range Interpretation Comments HCT (test code = HCT) 37.0 34.0-46.6 [facility] CenterTffltepHqkyvelzru2487-63-34 10:33:00 Test Item Value Reference Range Interpretation Comments PLATELETS (test code = 247 X10E3/UL 140-415 PLATELETS) [facility] CenterRjlrwgcEerlhpnuzv2829-19-67 10:33:00 Test Item Value Reference Range Interpretation Comments PLATELETS (test code = 247 X10E3/UL 140-415 PLATELETS) [facility] CenterKhpxmiiLifgfpylkd8965-73-79 10:33:00 Test Item Value Reference Range Interpretation Comments HGB (test code = HGB) 12.4 11.1-15.9 [facility] CenterEqneisfGjmgyvelyx9144-69-88 10:33:00 Test Item Value Reference Range Interpretation Comments HCT (test code = HCT) 37.0 34.0-46.6 [facility] CenterQcousvkPewqshxief1244-68-72 10:33:00 Test Item Value Reference Range Interpretation Comments PLATELETS (test code = 247 X10E3/UL 140-415 PLATELETS) [facility] CenterBwfhlbbRpmucprnvz9865-34-19 10:33:00 Test Item Value Reference Range Interpretation Comments HGB (test code = HGB) 12.4 11.1-15.9 [facility] CenterRpfnpxlMeicaeyofg0910-51-02 10:33:00 Test Item Value Reference Range Interpretation Comments HCT (test code = HCT) 37.0 34.0-46.6 [facility] CenterUlrztahWbxtofrboy9240-59-18 10:33:00 Test Item Value Reference Range Interpretation Comments PLATELETS (test code = 247 X10E3/UL 140-415 PLATELETS) [facility] CenterHmbiogxSwoxhhqxol6276-01-33 10:33:00 Test Item Value Reference Range Interpretation Comments HGB (test code = HGB) 12.4 11.1-15.9 [facility] CenterTmovpkzUujqlglrve8522-04-68 10:33:00 Test Item Value Reference Range Interpretation Comments HCT (test code = HCT) 37.0 34.0-46.6 [facility] CenterThrdovlHoxisscmug1793-25-45 10:33:00 Test Item Value Reference Range Interpretation Comments PLATELETS (test code = 247 X10E3/UL 140-415 PLATELETS) [facility] CenterOcirdpqTbgblgrxhn5860-30-94 10:33:00 Test Item Value Reference Range Interpretation Comments HGB (test code = HGB) 12.4 11.1-15.9 [facility] CenterBjoncsdHydmnjwvnw8901-68-87 10:33:00 Test Item Value Reference Range Interpretation Comments HCT (test code = HCT) 37.0 34.0-46.6 [facility] CenterZpoivtoOsgtbtbgxp5586-74-58 10:33:00 Test Item Value Reference Range Interpretation Comments PLATELETS (test code = 247 X10E3/UL 140-415 PLATELETS) [facility] CenterKpimvrsYkmosmgztt7380-59-26 10:33:00 Test Item Value Reference Range Interpretation Comments HGB (test code = HGB) 12.4 11.1-15.9 [facility] CenterFrzvhqbQhgywlsjym0672-81-71 10:33:00 Test Item Value Reference Range Interpretation Comments HCT (test code = HCT) 37.0 34.0-46.6 [facility] CenterZiliaszElbuulinwr7535-46-26 10:33:00 Test Item Value Reference Range Interpretation Comments PLATELETS (test code = 247 X10E3/UL 140-415 PLATELETS) [facility] CenterYifqovvGbgceqkyhe5518-77-96 10:33:00 Test Item Value Reference Range Interpretation Comments HGB (test code = HGB) 12.4 11.1-15.9 [facility] CenterAtjzvvrScigxsbtnv7361-58-52 10:33:00 Test Item Value Reference Range Interpretation Comments HCT (test code = HCT) 37.0 34.0-46.6 [facility] CenterCklalenQvgupvqbbh4590-56-30 10:33:00 Test Item Value Reference Range Interpretation Comments PLATELETS (test code = 247 X10E3/UL 140-415 PLATELETS) [facility] CenterZaysztxCjflhxgwnk7403-83-01 10:33:00 Test Item Value Reference Range Interpretation Comments HGB (test code = HGB) 12.4 11.1-15.9 [facility] CenterMxxuxofOvogqyzwyi2592-85-41 10:33:00 Test Item Value Reference Range Interpretation Comments HCT (test code = HCT) 37.0 34.0-46.6 [facility] CenterZaqbsgwHrkjecrpkv4072-87-42 10:33:00 Test Item Value Reference Range Interpretation Comments PLATELETS (test code = 247 X10E3/UL 140-415 PLATELETS) [facility] CenterXadyorlPaobheoxsc0194-20-56 10:33:00 Test Item Value Reference Range Interpretation Comments HGB (test code = HGB) 12.4 11.1-15.9 [facility] CenterLklqxbtEtlcowdfuz1888-16-64 10:33:00 Test Item Value Reference Range Interpretation Comments HCT (test code = HCT) 37.0 34.0-46.6 [facility] CenterQencnbsQluhulaavl6230-71-24 10:46:00 Test Item Value Reference Range Interpretation Comments HGB (test code = HGB) 12.4 11.5-15.0 [facility] CenterXhqonmxHzfvbtvvpq4341-90-18 10:46:00 Test Item Value Reference Range Interpretation Comments HCT (test code = HCT) 37.6 34.0-44.0 [facility] CenterXrljmbhTrzidxanhs7200-09-98 10:46:00 Test Item Value Reference Range Interpretation Comments PLATELETS (test code = 240 X10E3/UL 140-415 PLATELETS) [facility] CenterZltsdtwGolyltxljr4367-27-62 10:46:00 Test Item Value Reference Range Interpretation Comments HGB (test code = HGB) 12.4 11.5-15.0 [facility] CenterWwjbpbqOkkwqnncgx3324-36-94 10:46:00 Test Item Value Reference Range Interpretation Comments HCT (test code = HCT) 37.6 34.0-44.0 [facility] CenterQxsjifbOyqimtbtqk0666-10-59 10:46:00 Test Item Value Reference Range Interpretation Comments PLATELETS (test code = 240 X10E3/UL 140-415 PLATELETS) [facility] CenterQutnklkPvyhhzmivp9748-07-77 10:46:00 Test Item Value Reference Range Interpretation Comments HGB (test code = HGB) 12.4 11.5-15.0 [facility] CenterNkteflqKzeslzpspf2307-41-93 10:46:00 Test Item Value Reference Range Interpretation Comments HCT (test code = HCT) 37.6 34.0-44.0 [facility] CenterArqwtuaUlzbckiknm2335-93-29 10:46:00 Test Item Value Reference Range Interpretation Comments PLATELETS (test code = 240 X10E3/UL 140-415 PLATELETS) [facility] CenterBanumqqQgtogacmkt5877-97-96 10:46:00 Test Item Value Reference Range Interpretation Comments HGB (test code = HGB) 12.4 11.5-15.0 [facility] CenterXbqmvapMibucukadd1510-85-01 10:46:00 Test Item Value Reference Range Interpretation Comments HCT (test code = HCT) 37.6 34.0-44.0 [facility] CenterUwqafwhJyfomymkzg8505-54-46 10:46:00 Test Item Value Reference Range Interpretation Comments PLATELETS (test code = 240 X10E3/UL 140-415 PLATELETS) [facility] CenterPyvoiqySxpopquuof8944-88-22 10:46:00 Test Item Value Reference Range Interpretation Comments HGB (test code = HGB) 12.4 11.5-15.0 [facility] CenterOxbjhjeTzmnsqdvxa2159-94-51 10:46:00 Test Item Value Reference Range Interpretation Comments HCT (test code = HCT) 37.6 34.0-44.0 [facility] CenterYvmnkfbDjdyijnvzx5419-98-71 10:46:00 Test Item Value Reference Range Interpretation Comments PLATELETS (test code = 240 X10E3/UL 140-415 PLATELETS) [facility] CenterDqcvoczAcexwcsomw4879-74-92 10:46:00 Test Item Value Reference Range Interpretation Comments HGB (test code = HGB) 12.4 11.5-15.0 [facility] CenterKnbloxxYsowjlorze0262-25-60 10:46:00 Test Item Value Reference Range Interpretation Comments HCT (test code = HCT) 37.6 34.0-44.0 [facility] CenterJlyubheQcwuhwkqjp1805-84-58 10:46:00 Test Item Value Reference Range Interpretation Comments PLATELETS (test code = 240 X10E3/UL 140-415 PLATELETS) [facility] CenterXlcbmafZsupswesih6014-83-82 10:46:00 Test Item Value Reference Range Interpretation Comments HGB (test code = HGB) 12.4 11.5-15.0 [facility] CenterKrdbyfcUqzgqmfjpq2125-39-37 10:46:00 Test Item Value Reference Range Interpretation Comments HCT (test code = HCT) 37.6 34.0-44.0 [facility] CenterOdcpnvnInbmkvkdss8788-21-53 10:46:00 Test Item Value Reference Range Interpretation Comments PLATELETS (test code = 240 X10E3/UL 140-415 PLATELETS) [facility] CenterUifwsusVdwmlnfrgn3426-78-64 10:46:00 Test Item Value Reference Range Interpretation Comments HGB (test code = HGB) 12.4 11.5-15.0 [facility] CenterRrxggquXrqoqyypfm2812-21-38 10:46:00 Test Item Value Reference Range Interpretation Comments HCT (test code = HCT) 37.6 34.0-44.0 [facility] CenterElmzrldCtxsymszqo8819-45-48 10:46:00 Test Item Value Reference Range Interpretation Comments PLATELETS (test code = 240 X10E3/UL 140-415 PLATELETS) [facility] CenterVbkdpdsYclovmbjbl7674-37-03 10:46:00 Test Item Value Reference Range Interpretation Comments HGB (test code = HGB) 12.4 11.5-15.0 [facility] CenterGawwskcVybrwehxsm0044-56-28 10:46:00 Test Item Value Reference Range Interpretation Comments HCT (test code = HCT) 37.6 34.0-44.0 [facility] CenterEfduvjtObjzidgnyb7095-08-17 10:46:00 Test Item Value Reference Range Interpretation Comments PLATELETS (test code = 240 X10E3/UL 140-415 PLATELETS) [facility]HwjsduvFecmdbgwr4494-28-96 06:34:00 Test Item Value Reference Range Interpretation Comments CREATININE (test code = CREATININE) 0.97 0.57-1.00 [facility] HospitalVafdyryQpnvnptxr5492-25-28 06:34:00 Test Item Value Reference Range Interpretation Comments CREATININE (test code = CREATININE) 0.97 0.57-1.00 [facility] HospitalKwjjhyxKupuzqaft2032-02-27 06:34:00 Test Item Value Reference Range Interpretation Comments CREATININE (test code = CREATININE) 0.97 0.57-1.00 [facility] HospitalDmsuwhrPdhsqgzcz0102-71-88 06:34:00 Test Item Value Reference Range Interpretation Comments CREATININE (test code = CREATININE) 0.97 0.57-1.00 [facility] HospitalFuxpitoHsxbhujjj8761-50-24 06:34:00 Test Item Value Reference Range Interpretation Comments CREATININE (test code = CREATININE) 0.97 0.57-1.00 [facility] HospitalVawudwnNadqjluay9342-67-01 06:34:00 Test Item Value Reference Range Interpretation Comments CREATININE (test code = CREATININE) 0.97 0.57-1.00 [facility] HospitalGozdpsxIeekdbxoj9848-85-93 06:34:00 Test Item Value Reference Range Interpretation Comments CREATININE (test code = CREATININE) 0.97 0.57-1.00 [facility] HospitalGoshxicIzhnltveb3485-58-10 06:34:00 Test Item Value Reference Range Interpretation Comments CREATININE (test code = CREATININE) 0.97 0.57-1.00 [facility] HospitalVgahxgdJomescskp9133-07-51 06:34:00 Test Item Value Reference Range Interpretation Comments CREATININE (test code = CREATININE) 0.97 0.57-1.00 [facility] HospitalPsxeilpMqwgjpzjr4133-69-12 06:34:00 Test Item Value Reference Range Interpretation Comments CREATININE (test code = CREATININE) 0.97 0.57-1.00 [facility] HospitalPienrwtPipqyzpts5126-33-07 06:34:00 Test Item Value Reference Range Interpretation Comments CREATININE (test code = CREATININE) 0.97 0.57-1.00 [facility] HospitalFmyjthjOzejrfbgt3673-98-45 06:34:00 Test Item Value Reference Range Interpretation Comments CREATININE (test code = CREATININE) 0.97 0.57-1.00 [facility] HospitalLvncuzgWxiblcpcy7802-21-08 06:34:00 Test Item Value Reference Range Interpretation Comments CREATININE (test code = CREATININE) 0.97 0.57-1.00 [facility] HospitalYikpzecWxbpoqqnc2858-09-91 06:34:00 Test Item Value Reference Range Interpretation Comments CREATININE (test code = CREATININE) 0.97 0.57-1.00 [facility] HospitalGfqvsnaZmqhdisys8529-24-61 06:34:00 Test Item Value Reference Range Interpretation Comments CREATININE (test code = CREATININE) 0.97 0.57-1.00 [facility] HospitalVtfeyopWidctzpke9081-34-17 06:34:00 Test Item Value Reference Range Interpretation Comments CREATININE (test code = CREATININE) 0.97 0.57-1.00 [facility] HospitalPeitaraIigusfgdn9033-43-64 06:34:00 Test Item Value Reference Range Interpretation Comments CREATININE (test code = CREATININE) 0.97 0.57-1.00 [facility] HospitalEgjuobbRfryjutzj1930-52-36 06:34:00 Test Item Value Reference Range Interpretation Comments CREATININE (test code = CREATININE) 0.97 0.57-1.00 [facility] CenterAhgkonxNgpuobmnvl9617-24-08 07:25:00 Test Item Value Reference Range Interpretation Comments HGB (test code = HGB) 12.2 11.5-15.0 [facility] CenterHmmatcmZmhirhgyfl1319-94-99 07:25:00 Test Item Value Reference Range Interpretation Comments HCT (test code = HCT) 38.0 34.0-44.0 [facility] CenterVzofyagDsowypzwvd5705-15-87 07:25:00 Test Item Value Reference Range Interpretation Comments PLATELETS (test code = 255 X10E3/UL 140-415 PLATELETS) [facility] CenterKhgevxbVijfpbxgsx9637-59-18 07:25:00 Test Item Value Reference Range Interpretation Comments HGB (test code = HGB) 12.2 11.5-15.0 [facility] CenterNnevmfnGihzrfwhyp8185-80-62 07:25:00 Test Item Value Reference Range Interpretation Comments HCT (test code = HCT) 38.0 34.0-44.0 [facility] CenterTbisoqzXadoyjeesp5162-12-69 07:25:00 Test Item Value Reference Range Interpretation Comments PLATELETS (test code = 255 X10E3/UL 140-415 PLATELETS) [facility] CenterKzvsizhPwapwqafcc2511-27-88 07:25:00 Test Item Value Reference Range Interpretation Comments HGB (test code = HGB) 12.2 11.5-15.0 [facility] CenterIttwzffBxvakatqoa8604-70-85 07:25:00 Test Item Value Reference Range Interpretation Comments HCT (test code = HCT) 38.0 34.0-44.0 [facility] CenterUdmvfjrXzyruddwaw6665-25-58 07:25:00 Test Item Value Reference Range Interpretation Comments PLATELETS (test code = 255 X10E3/UL 140-415 PLATELETS) [facility] CenterAeenbucKkmnolkbaq8086-17-13 07:25:00 Test Item Value Reference Range Interpretation Comments HGB (test code = HGB) 12.2 11.5-15.0 [facility] CenterTbnflyiEkiirwhgtj4621-93-53 07:25:00 Test Item Value Reference Range Interpretation Comments HCT (test code = HCT) 38.0 34.0-44.0 [facility] CenterDbfxxwbFvgsurxagg5623-68-17 07:25:00 Test Item Value Reference Range Interpretation Comments PLATELETS (test code = 255 X10E3/UL 140-415 PLATELETS) [facility] CenterTadyyrvWpvisbgyla6820-74-78 07:25:00 Test Item Value Reference Range Interpretation Comments HGB (test code = HGB) 12.2 11.5-15.0 [facility] CenterTxtfooiDqbehpaild6928-41-97 07:25:00 Test Item Value Reference Range Interpretation Comments HCT (test code = HCT) 38.0 34.0-44.0 [facility] CenterRbgezukVgpmwlflla8509-47-95 07:25:00 Test Item Value Reference Range Interpretation Comments PLATELETS (test code = 255 X10E3/UL 140-415 PLATELETS) [facility] CenterVbwyimnGdhzhccchc7095-06-14 07:25:00 Test Item Value Reference Range Interpretation Comments HGB (test code = HGB) 12.2 11.5-15.0 [facility] CenterLyvoobpKyceeahpeo7871-88-47 07:25:00 Test Item Value Reference Range Interpretation Comments HCT (test code = HCT) 38.0 34.0-44.0 [facility] CenterAjkjgflAscjgcigko5339-29-42 07:25:00 Test Item Value Reference Range Interpretation Comments PLATELETS (test code = 255 X10E3/UL 140-415 PLATELETS) [facility] CenterFdfsmwkFexgiipmpl5053-40-40 07:25:00 Test Item Value Reference Range Interpretation Comments HGB (test code = HGB) 12.2 11.5-15.0 [facility] CenterTmdakleOrunbkobak6396-75-12 07:25:00 Test Item Value Reference Range Interpretation Comments HCT (test code = HCT) 38.0 34.0-44.0 [facility] CenterJmzmpauGehlizszdr5595-01-76 07:25:00 Test Item Value Reference Range Interpretation Comments PLATELETS (test code = 255 X10E3/UL 140-415 PLATELETS) [facility] CenterKofypzrJitqsarzzx1067-62-66 07:25:00 Test Item Value Reference Range Interpretation Comments HGB (test code = HGB) 12.2 11.5-15.0 [facility] CenterBerydzlXzgubndnfc2005-57-20 07:25:00 Test Item Value Reference Range Interpretation Comments HCT (test code = HCT) 38.0 34.0-44.0 [facility] CenterJbiyuenQtigtsjolo6193-94-31 07:25:00 Test Item Value Reference Range Interpretation Comments PLATELETS (test code = 255 X10E3/UL 140-415 PLATELETS) [facility] CenterUfhimsaSukwthfckt7735-09-58 07:25:00 Test Item Value Reference Range Interpretation Comments HGB (test code = HGB) 12.2 11.5-15.0 [facility] CenterJzwwefdOspxdtzokn8638-74-99 07:25:00 Test Item Value Reference Range Interpretation Comments HCT (test code = HCT) 38.0 34.0-44.0 [facility] CenterWrlmimoPtnbbktqpx0149-89-75 07:25:00 Test Item Value Reference Range Interpretation Comments PLATELETS (test code = 255 X10E3/UL 140-415 PLATELETS) [facility] HospitalEzolyilKwcijiitv4483-83-41 07:04:00 Test Item Value Reference Range Interpretation Comments CREATININE (test code = CREATININE) 0.97 4.5-12.0 [facility] HospitalUlcneurQrlodefur0987-85-34 07:04:00 Test Item Value Reference Range Interpretation Comments CREATININE (test code = CREATININE) 0.97 0.57-1.00 [place] 406931-12-03 07:04:00 Test Item Value Reference Range Interpretation Comments CREATININE (test code = CREATININE) 0.97 0.57-1.00 [place] 406931-12-03 07:04:00 Test Item Value Reference Range Interpretation Comments CREATININE (test code = CREATININE) 0.97 4.5-12.0 [facility] HospitalXapbdefRgppufsfd3438-80-50 07:04:00 Test Item Value Reference Range Interpretation Comments CREATININE (test code = CREATININE) 0.97 0.57-1.00 [facility] HospitalRlfdzwfGmvtpbtoq2711-53-94 07:04:00 Test Item Value Reference Range Interpretation Comments CREATININE (test code = CREATININE) 0.97 0.57-1.00 [facility] HospitalKtrshqzOoivunvun4714-16-68 07:04:00 Test Item Value Reference Range Interpretation Comments CREATININE (test code = CREATININE) 0.97 4.5-12.0 [facility] HospitalBgamhutMucdiefqa2562-81-05 07:04:00 Test Item Value Reference Range Interpretation Comments CREATININE (test code = CREATININE) 0.97 0.57-1.00 [facility] HospitalQwxyqolXtphffmsw1080-23-41 07:04:00 Test Item Value Reference Range Interpretation Comments CREATININE (test code = CREATININE) 0.97 0.57-1.00 [facility] HospitalRvcbxekXhexdnshv6209-72-83 07:04:00 Test Item Value Reference Range Interpretation Comments CREATININE (test code = CREATININE) 0.97 4.5-12.0 [facility] HospitalGdjrfdyOryrujrsa6817-72-31 07:04:00 Test Item Value Reference Range Interpretation Comments CREATININE (test code = CREATININE) 0.97 0.57-1.00 [place] 406931-12-03 07:04:00 Test Item Value Reference Range Interpretation Comments CREATININE (test code = CREATININE) 0.97 0.57-1.00 [facility] HospitalXnvwwurLhhmhryuc0400-15-43 07:04:00 Test Item Value Reference Range Interpretation Comments CREATININE (test code = CREATININE) 0.97 4.5-12.0 [facility] HospitalWfdwxsdWilfarziq7632-60-12 07:04:00 Test Item Value Reference Range Interpretation Comments CREATININE (test code = CREATININE) 0.97 0.57-1.00 [facility] HospitalGvriogtTvckalwvj1175-10-50 07:04:00 Test Item Value Reference Range Interpretation Comments CREATININE (test code = CREATININE) 0.97 0.57-1.00 [facility] HospitalHeuiujcTnsgnslbo0990-08-37 07:04:00 Test Item Value Reference Range Interpretation Comments CREATININE (test code = CREATININE) 0.97 4.5-12.0 [facility] HospitalTzpglyiRpcgwwbtc2884-12-45 07:04:00 Test Item Value Reference Range Interpretation Comments CREATININE (test code = CREATININE) 0.97 0.57-1.00 [facility] HospitalSfxbyiiCztxrdmkl5617-47-95 07:04:00 Test Item Value Reference Range Interpretation Comments CREATININE (test code = CREATININE) 0.97 0.57-1.00 [facility] HospitalQcrolegOnhuefkyu5554-09-99 07:04:00 Test Item Value Reference Range Interpretation Comments CREATININE (test code = CREATININE) 0.97 4.5-12.0 [facility] HospitalSojqvjbMiebpycjp7191-32-53 07:04:00 Test Item Value Reference Range Interpretation Comments CREATININE (test code = CREATININE) 0.97 0.57-1.00 [facility] HospitalWuhkzymTdqnogdmp3243-07-56 07:04:00 Test Item Value Reference Range Interpretation Comments CREATININE (test code = CREATININE) 0.97 0.57-1.00 [facility] HospitalFijxlaeRevtbyxwj3363-96-19 07:04:00 Test Item Value Reference Range Interpretation Comments CREATININE (test code = CREATININE) 0.97 4.5-12.0 [facility] HospitalMkaivryAnyqiyifa9902-03-31 07:04:00 Test Item Value Reference Range Interpretation Comments CREATININE (test code = CREATININE) 0.97 0.57-1.00 [facility] HospitalOijozuhImwgwmnib8749-54-31 07:04:00 Test Item Value Reference Range Interpretation Comments CREATININE (test code = CREATININE) 0.97 0.57-1.00 [facility] HospitalKabayfhFbcatlalp4439-43-51 07:04:00 Test Item Value Reference Range Interpretation Comments CREATININE (test code = CREATININE) 0.97 4.5-12.0 [facility] HospitalCtczxpwYmddjvvpj9865-67-85 07:04:00 Test Item Value Reference Range Interpretation Comments CREATININE (test code = CREATININE) 0.97 0.57-1.00 [facility] HospitalWvwcageUwfigfrrg2673-32-58 07:04:00 Test Item Value Reference Range Interpretation Comments CREATININE (test code = CREATININE) 0.97 0.57-1.00 [facility] Notes Date/Time Note Provider Source 2016-01-14 12:00:00-00:00 EXAM: MRI BRAIN WITHOUT CONTRAST [facility] DATE: 01/14/2016 11:47 AM CDT INDICATION: F03.90 [...] Mild chronic small vessel ischemic change. SL: [id number] 2016-01-14 12:00:00-00:00 EXAM: MRI BRAIN WITHOUT CONTRAST [facility] DATE: 01/14/2016 11:47 AM CDT INDICATION: F03.90 [...] Mild chronic small vessel ischemic change. SL: [id number] 2016-01-14 12:00:00-00:00 EXAM: MRI BRAIN WITHOUT CONTRAST [facility] DATE: 01/14/2016 11:47 AM CDT INDICATION: F03.90 [...] Mild chronic small vessel ischemic change. SL: [id number] 2016-01-14 12:00:00-00:00 EXAM: MRI BRAIN WITHOUT CONTRAST [facility] DATE: 01/14/2016 11:47 AM CDT INDICATION: F03.90 [...] Mild chronic small vessel ischemic change. SL: [id number] 2016-01-14 12:00:00-00:00 EXAM: MRI BRAIN WITHOUT CONTRAST [facility] DATE: 01/14/2016 11:47 AM CDT INDICATION: F03.90 [...] Mild chronic small vessel ischemic change. SL: [id number]"
--- NOTE | 2022-12-19 18:53 | RAD REPORT ---
EXAM DESCRIPTION: [facility]12/19/2022 6:34 pm CLINICAL HISTORY: left leg pain COMPARISON: 2017 FINDINGS: Left common femoral, superficial femoral, greater saphenous, popliteal and posterior tibi al veins are compressible and demonstrate augmentation. Doppler demonstrates good flow. Grayscale, color and spectral analysis performed on all vessels IMPRESSION: No evidence of deep venous thrombosis involving the left lower extremity.
--- NOTE | 2022-12-19 19:05 | EDPHYS ---
Physician Documentation [facility] Name: Izabela Phillips Age: 72 yrs Sex: Female : 1950 Arrival Date: 12/19/2022 Time: 17:54 Bed 7 Private MD: ED Physician Bennett Márquez HPI: 12/19 18:15 This 72 yrs old Black Female presents to ER via Ambulatory with complaints of Leg Pain. ms3 18:15 72-year-old female with past medical history of sarcoidosis, chronic kidney disease, ms3 congestive heart failure, hypertension bipolar, stroke, diabetes, presents for left flank pain that has been ongoing for 2 days. Patient denies nausea, vomiting, shortness of breath, chest pain, fevers. Patient states pain is a 9/10. Patient denies inciting factors. Patient states the pain is better after propping her leg up. Patient states she has taken Tylenol with mild relief.. Historical: - Allergies: 18:09 Amoxicillin (Anaphylaxis); hb 18:09 Glipizide; hb 18:09 Sulfa (Sulfonamide Antibiotics); hb - PMHx: 18:09 Bipolar disorder; Cerebrovascular accident; Diabetes - IDDM; High Cholesterol; hb Hypertension; Rheumatoid Arthritis; sarcoidosis; - Immunization history:: Adult Immunizations up to date. - Social history:: Smoking status: Patient denies any tobacco usage or history of. ROS: 18:15 Constitutional: Negative for fever, and chills. Neck: Negative for injury, pain, and ms3 swelling, Cardiovascular: Negative for chest pain, and palpitations. Respiratory: Negative for shortness of breath, cough, wheezing, and pleuritic chest pain, Abdomen/GI: Negative for abdominal pain, nausea, vomiting, diarrhea, and constipation. 18:15 MS/extremity: Positive for Left leg pain. Exam: 18:15 Constitutional: This is a well developed, well nourished patient who is awake, alert, ms3 and in no acute distress. Head/Face: Normocephalic, atraumatic. Chest/axilla: Normal chest wall appearance and motion. Nontender with no deformity. Cardiovascular: Regular rate and rhythm with a normal S1 and S2. No gallops, murmurs, or rubs. Normal PMI, no JVD. No pulse deficits. Respiratory: Lungs have equal breath sounds bilaterally, clear to auscultation and percussion. No rales, rhonchi or wheezes noted. No increased work of breathing, no retractions or nasal flaring. Abdomen/GI: Soft, non-tender, with normal bowel sounds. No distension or tympany. No guarding or rebound. No evidence of tenderness throughout. Skin: Warm, dry with normal turgor. Normal color with no rashes, no lesions, and no evidence of cellulitis. 18:15 Musculoskeletal/extremity: Extremities: noted in the Left lower leg: pain, tenderness. Vital Signs: 18:46 BP 183 / 76; Pulse 71; Resp 18; Temp 98; Pulse Ox 97% on R/A; Weight 127.01 kg; Height hb 5 ft. 11 in. ; Pain 8/10; 18:46 Body Mass Index 39.05 (127.01 kg, 180.34 cm) hb 18:46 Pain Scale: Adult hb MDM: 18:15 Differential diagnosis: DVT versus musculoskeletal pain. ms3 18:20 Patient medically screened. ms3 19:11 Data reviewed: vital signs, nurses notes, and as a result, I will discharge patient. I ms3 considered the following discharge prescriptions or medication management in the emergency department. Counseling: I had a detailed discussion with the patient and/or guardian regarding the historical points, exam findings, and any diagnostic results supporting the discharge/admit diagnosis, radiology results, the need for outpatient follow up, to return to the emergency department if symptoms worsen or persist or if there are any questions or concerns that arise at home. Special discussion: I discussed with the patient/guardian in detail that at this point there is no indication for admission to the hospital. It is understood, however, that if the symptoms persist or worsen the patient needs to return immediately for re-evaluation. ED course: Discussed negative venous Doppler ultrasound with patient. Patient to follow-up with primary care physician to 3 days. Patient understands agrees with plan. All questions were answered. Return precautions discussed include worsening symptoms, or any other concerns. 12/19 18:07 Order name: US Extremity Venous Unilateral Ltd; Complete Time: 18:56 ms3 Administered Medications: No medications were administered Disposition Summary: 12/19/22 19:04 Discharge Ordered Location: Home ms3 Condition: Stable ms3 Diagnosis - Pain in left lower leg ms3 Followup: ms3 - With: Private Physician - When: 2 - 3 days - Reason: Recheck today's complaints Discharge Instructions: - Discharge Summary Sheet ms3 - Musculoskeletal Pain ms3 Forms: - Medication Reconciliation Form ms3 - Thank You Letter ms3 - Antibiotic Education ms3 - Prescription Opioid Use ms3 - Patient Portal Instructions ms3 - Leadership Thank You Letter ms3 Signatures: Dispatcher [employer] Jayna Barker RN RN Bennett Jimenez DO DO ms3
--- NOTE | 2022-12-19 19:05 | ER ---
Nurse's Notes [facility] Name: Izabela Minor Age: 72 yrs Sex: Female : 1950 Arrival Date: 12/19/2022 Time: 17:54 Bed 7 Private MD: Diagnosis: Pain in left lower leg Presentation: 12/19 18:07 Chief complaint: Left leg pain x 2 days. Denies injury. hb 18:08 Coronavirus screen: At this time, the client does not indicate any symptoms associated hb with coronavirus-19. Ebola Screen: No symptoms or risks identified at this time. Initial Sepsis Screen: Does the patient meet any 2 criteria? No. Patient's initial sepsis screen is negative. Does the patient have a suspected source of infection? No. Patient's initial sepsis screen is negative. Risk Assessment: Do you want to hurt yourself or someone else? Patient reports no desire to harm self or others. Onset of symptoms is unknown. 18:08 Method Of Arrival: Ambulatory hb 18:08 Acuity: NIYA 3 hb Historical: - Allergies: 18:09 Amoxicillin (Anaphylaxis); hb 18:09 Glipizide; hb 18:09 Sulfa (Sulfonamide Antibiotics); hb - PMHx: 18:09 Bipolar disorder; Cerebrovascular accident; Diabetes - IDDM; High Cholesterol; hb Hypertension; Rheumatoid Arthritis; sarcoidosis; - Immunization history:: Adult Immunizations up to date. - Social history:: Smoking status: Patient denies any tobacco usage or history of. Screenin:35 [facility] ED Fall Risk Assessment (Adult) Score/Fall Risk Level 0 - 2 = Low Risk ll1 Oriented to surroundings, Maintained a safe environment, Educated pt \T\ family on fall prevention, incl call for assistance when getting out of bed, Hourly rounding (assess needs \T\ fall precautionary measures) done. Abuse screen: Denies threats or abuse. Nutritional screening: No deficits noted. Tuberculosis screening: No symptoms or risk factors identified. Assessment: 18:35 General: Appears uncomfortable, Behavior is calm, cooperative, appropriate for age. ll1 Pain: Complains of pain in left leg Quality of pain is described as aching. Musculoskeletal: Circulation, motion, and sensation intact. Capillary refill < 3 seconds, Reports pain in left leg. 19:00 Reassessment: No changes from previously documented assessment. Patient and/or family ll1 updated on plan of care and expected duration. Pain level reassessed. Patient is alert, oriented x 3, equal unlabored respirations, skin warm/dry/pink. Vital Signs: 18:46 BP 183 / 76; Pulse 71; Resp 18; Temp 98; Pulse Ox 97% on R/A; Weight 127.01 kg; Height hb 5 ft. 11 in. ; Pain 8/10; 18:46 Body Mass Index 39.05 (127.01 kg, 180.34 cm) hb 18:46 Pain Scale: Adult hb ED Course: 17:59 Patient arrived in ED. mg5 17:59 Bennett Márquez DO is Attending Physician. ms3 18:09 Triage completed. hb 18:17 Arm band placed on. hb 18:31 Aura Rodríguez, RN is Primary Nurse. ll1 18:35 Patient has correct armband on for positive identification. Bed in low position. Call ll1 light in reach. Cardiac monitoring not applicable on this patient. 18:36 US Extremity Venous Unilateral Ltd In Process Unspecified. EDMS 19:15 No provider procedures requiring assistance completed. iw 19:16 Provided Education on: d/c instructions . iw 19:16 Patient did not have IV access during this emergency room visit. iw Administered Medications: No medications were administered Medication: 18:36 VIS not applicable for this client. ll1 Outcome: 19:04 Discharge ordered by . ms3 19:16 Discharged to home ambulatory. iw 19:16 Condition: good iw 19:16 Discharge instructions given to patient, Instructed on discharge instructions, follow up and referral plans. Demonstrated understanding of instructions, follow-up care. 19:16 Patient left the ED. iw Signatures: Dispatcher [employer] EDMS Chitra Bermudez RN RN Jayna Meng RN RN Aura Rodríguez RN RN ll1 Bennett Márquez DO DO ms3 Gena Lin mg5 Corrections: (The following items were deleted from the chart) 18:10 18:08 Chief complaint: Sent by PCP for intermittent RLQ pain x 1 year, worse over the hb last week. hb 18:10 18:08 Chief complaint: Sent by PCP for intermittent RLQ pain x 1 year, worse over the hb last week. hb 18:17 18:08 Pain 4/10, Adult; hb hb
[2022-12-19 20:13] VITALS: BP 183/76; TEMP 98; O2SAT 97
== END 2022-12-19 19:16 | disposition home or self-care (01) ==
LOC: ER 17:54
DX: M79.662 Pain in left lower leg (principal); Z88.1 Allergy status to other antibiotic agents; Z88.2 Allergy status to sulfonamides; Z88.8 Allergy status to other drugs, medicaments and biological substances
CPT/HCPCS: 93971; 99282